=== PATIENT | male | born 1930 | race Caucasian/White ===

== ENCOUNTER → 2016-06-03 | Outpatient (CLI) | payer BC ==
[~2016-06-03] MED LIST: ACET-1256 PO; ALL300 PO; CLB200 PO; LSN/10125 PO; PRLSR20 PO; SILD100T PO
[2016-06-03 11:09] LABS: URINE APPEARANCE CLEAR (CLEAR); URINE BILIRUBIN NEG (NEG); URINE COLOR YELLOW; URINE EPITHELIAL CELL AUTO 0-5 /lpf (0-5); URINE NITRITE NEG (NEG); URINE SPECIFIC GRAVITY 1.017 (1.000-1.030); UROBILINOGEN NEG (NEG)
[2016-06-03 11:10] LABS: HEMATOCRIT 35.6 % (42-52); MEAN CELL VOLUME 98.3 fL (80-100); MEAN CORPUSCULAR HGB CONC 34.6 g/dl (32-36); MEAN PLATELET VOLUME 10.5 fL (7.4-10.4); PLATELET COUNT 212 K/uL (130-400); RED BLOOD COUNT 3.62 M/uL (4.7-6.1); WHITE BLOOD COUNT 8.14 K/uL (4.8-10.8)
[2016-06-03 11:37] LABS: MANUAL MICROSCOPIC REQUIRED? NO; REVIEW REQ? NO
[2016-06-03 11:38] LABS: ALT/SGPT 18 U/L (12-78); BLOOD UREA NITROGEN 29 mg/dl (7-18); BUN/CREATININE RATIO 22.5 (10-20); CALCIUM 8.8 mg/dl (8.5-10.1); CARBON DIOXIDE 24 mmol/L (21-32); CHLORIDE 109 mmol/L (98-107); GLUCOSE 71 mg/dl (70-99); POTASSIUM 3.8 mmol/L (3.5-5.1); SODIUM 143 mmol/L (136-145); URINE PROTIEN/CREAT RATIO 0.1 (0-0.2); URINE TOTAL PROTEIN 13.9 mg/dl (0-11.9)
[2016-06-03 11:41] LABS: ALB/GLOB RATIO 1.1 (0.9-2); ALKALINE PHOSPHATASE 78 U/L (45-117); AST/SGOT 14 U/L (15-37)
== END | disposition home or self-care (01) ==
LOC: C.LAB1850 10:18
PROVIDERS: ATTEND Internal Medicine Nephrology
DX: E55.9 Vitamin D deficiency, unspecified (principal)

== ENCOUNTER → 2016-07-24 | Outpatient (CLI) | payer BC | END | disposition home or self-care (01) | LOC: C.PATHSPEC 10:55 | PROVIDERS: ATTEND Urology | DX: C67.9 Malignant neoplasm of bladder, unspecified (principal) ==

== ENCOUNTER → 2016-12-23 | Outpatient (CLI) | payer BC ==
[2016-12-23 12:50] LABS: HEMATOCRIT 34.2 % (42-52); MEAN CELL VOLUME 99.7 fL (80-100); MEAN CORPUSCULAR HEMOGLOBIN 33.5 pg (25-34); MEAN CORPUSCULAR HGB CONC 33.6 g/dl (32-36); MEAN PLATELET VOLUME 10.7 fL (7.4-10.4); PLATELET COUNT 196 K/uL (130-400); RED BLOOD COUNT 3.43 M/uL (4.7-6.1); WHITE BLOOD COUNT 6.66 K/uL (4.8-10.8)
[2016-12-23 12:55] LABS: URINE APPEARANCE CLEAR (CLEAR); URINE BILIRUBIN NEG (NEG); URINE COLOR YELLOW; URINE EPITHELIAL CELL AUTO 0-5 /lpf (0-5); URINE NITRITE NEG (NEG); URINE SPECIFIC GRAVITY 1.022 (1.000-1.030); UROBILINOGEN NEG (NEG)
[2016-12-23 13:05] LABS: MANUAL MICROSCOPIC REQUIRED? NO; REVIEW REQ? NO
[2016-12-23 13:19] LABS: URINE PROTIEN/CREAT RATIO 0.1 (0-0.2); URINE TOTAL PROTEIN 15.8 mg/dl (0-11.9)
[2016-12-23 13:26] LABS: BLOOD UREA NITROGEN 38 mg/dl (7-18); BUN/CREATININE RATIO 27.4 (10-20); CALCIUM 8.5 mg/dl (8.5-10.1); CARBON DIOXIDE 25 mmol/L (21-32); CHLORIDE 109 mmol/L (98-107); GLUCOSE 100 mg/dl (70-99); PHOSPHORUS 2.5 mg/dl (2.5-4.9); SODIUM 139 mmol/L (136-145)
== END | disposition home or self-care (01) ==
LOC: C.LAB1850 11:59
PROVIDERS: ATTEND Internal Medicine Nephrology
DX: N20.0 Calculus of kidney (principal); I12.9 Hypertensive chronic kidney disease with stage 1 through stage 4 chronic kidney disease, or unspecified chronic kidney disease; N18.3 Chronic kidney disease, stage 3 (moderate); E55.9 Vitamin D deficiency, unspecified

== ENCOUNTER → 2017-01-01 | Outpatient (CLI) | payer BC ==
--- NOTE | 2017-01-01 15:58 | DIAGNOSTIC IMAGING REPORT ---
LEFT ANKLE MIN 3 VIEWS CLINICAL HISTORY: 86 years-old Male presenting with LEFT ANKLE PAIN. TECHNIQUE: Frontal, mortise, and lateral views of the left ankle were obtained. COMPARISON: None. FINDINGS: Ankle mortise intact with diffuse degenerative change.. Heterotopic ossification along the inferior pole of the medial malleolus likely suggests chronic ligamentous injury. No acute fracture or malalignment. Prominent bone spur at the inferior calcaneus. Apparent distention of the ankle joint may suggest effusion. Degenerative changes also noted in the midfoot. Calcification noted in the Achilles tendon likely indicating chronic degeneration or injury. IMPRESSION: No acute fracture. Diffuse degenerative change of the ankle as described above. Possible ankle joint effusion. Electronically signed by: Erik Hopper M.D. 01/01/2017 3:57 PM Dictated Date/Time: 01/01/2017 3:54 PM
== END | disposition home or self-care (01) ==
LOC: C.RDSM 15:00
PROVIDERS: ATTEND Physician Assistant
DX: M25.572 Pain in left ankle and joints of left foot (principal); M19.072 Primary osteoarthritis, left ankle and foot

== ENCOUNTER 2017-03-05 12:06 | Day surgery (SDC) | payer BC ==
[2017-02-26 08:14] VITALS: BMI 26.0
--- NOTE | 2017-02-26 08:39 | PAT Medication Instructions ---
Service Date Feb 26, 2017. Current Home Medication List Acetaminophen (Tylenol), 500 MG PO QID PRN for PRN Allopurinol (Allopurinol), 300 MG PO QAM Atorvastatin (Lipitor), 20 MG PO UD Celecoxib (Celebrex), 200 MG PO QAM Esomeprazole Magnesium (Nexium), 40 MG PO QAM Hctz/Lisinopril (Lisinopril/Hctz 10/12.5 Mg), 1 TAB PO QAM Ocuvite Preservision (Ocuvite Preservision), 1 TAB PO QAM Sildenafil Citrate (Viagra), 100 MG PO PRN Medication Instructions For Your Scheduled Surgery - Hold the following medications the morning of surgery: Hctz/Lisinopril (Lisinopril/Hctz 10/12.5 Mg), 1 TAB PO QAM Ocuvite Preservision (Ocuvite Preservision), 1 TAB PO QAM Sildenafil Citrate (Viagra), 100 MG PO PRN Celecoxib (Celebrex), 200 MG PO QAM (otherwise okay to continue per surgeon) - Take the following medications the morning of surgery with a sip of water OTHERWISE NOTHING TO EAT OR DRINK AFTER MIDNIGHT: Allopurinol (Allopurinol), 300 MG PO QAM Acetaminophen (Tylenol), 500 MG PO QID PRN for PRN (may take if needed up to 4 hours prior to surgery) Esomeprazole Magnesium (Nexium), 40 MG PO QAM Atorvastatin (Lipitor), 20 MG PO UD - Take the following medications as scheduled the night before surgery: Acetaminophen (Tylenol), 500 MG PO QID PRN for PRN If you have any questions please call us at [phone] or [phone] or [phone]
--- NOTE | 2017-02-26 09:20 | DIAGNOSTIC IMAGING REPORT ---
CHEST 2 VIEWS ROUTINE HISTORY: 86 years-old Male PAT preoperative exam without acute chest complaints. COMPARISON: Chest radiograph 10/20/2013 TECHNIQUE: Frontal and lateral views of the chest FINDINGS: Cardiomediastinal and hilar silhouettes are within normal limits. There is atherosclerosis of the aorta. No pneumothorax, pleural effusion, focal airspace consolidation or overt pulmonary edema. Bones of the chest appear grossly intact. Multilevel bridging osteophytosis of the spine. IMPRESSION: No acute cardiopulmonary process. The above report was generated using voice recognition software. It may contain grammatical, syntax or spelling errors. Electronically signed by: Sandeep Beltran M.D. 02/26/2017 9:19 AM Dictated Date/Time: 02/26/2017 9:18 AM
[2017-02-26 09:50] LABS: BASO % 0.2 %; BASO ABS # 0.02 K/uL (0-0.2); COMPLETE YES; EOS % 2.6 %; HEMATOCRIT 32.6 % (42-52); IG% 0.4 %; LYMPH ABS # 1.63 K/uL (1.2-3.4); MEAN CORPUSCULAR HEMOGLOBIN 34.4 pg (25-34); MEAN CORPUSCULAR HGB CONC 34.4 g/dl (32-36); MEAN PLATELET VOLUME 10.4 fL (7.4-10.4); MONO % 7.7 %; NEUT % 69.1 %; PLATELET COUNT 214 K/uL (130-400); RED BLOOD COUNT 3.26 M/uL (4.7-6.1); URINE APPEARANCE CLEAR (CLEAR); URINE BILIRUBIN NEG (NEG); URINE COLOR YELLOW; URINE NITRITE NEG (NEG); URINE SPECIFIC GRAVITY 1.021 (1.000-1.030); UROBILINOGEN NEG (NEG); WHITE BLOOD COUNT 8.17 K/uL (4.8-10.8)
[2017-02-26 09:55] LABS: MANUAL MICROSCOPIC REQUIRED? NO; REVIEW REQ? NO
[2017-02-26 10:16] LABS: CALCIUM 8.8 mg/dl (8.5-10.1); CREATININE 1.31 mg/dl (0.60-1.40); POTASSIUM 4.4 mmol/L (3.5-5.1)
[~2017-03-05] VITALS: Ht 177.8 cm; Wt 84.5 kg
[~2017-03-05 12:06] MED LIST changes: +ATOR-22 PO; +CIPROFLOXACIN / D5W 400 MG IV SCH; +LACTATED RINGER'S 1000ML 1,000 ML IV SCH; +MULT-190 PO; +NXM/40 PO; -PRLSR20 PO
[2017-03-05 12:59] VITALS: BP 146/78; PULSE 62; TEMP 36.4; O2SAT 99; Ht 177.8 cm; Wt 84.5 kg
[2017-03-05] MEDS ORDERED: PROPOFOL IV EMULSION 10 MG/ML 20 ML VIAL IV ONE (13:55)
[2017-03-05] MEDS ORDERED: DEXAMETHASONE SOD INJ 4 MG/ML VIAL ONE (13:55)
[2017-03-05] MEDS ORDERED: LIDOCAINE HCL 2% 2 ML VIAL (20MG/ML) ONE (13:55)
[2017-03-05] MEDS ORDERED: ONDANSETRON INJ 2 MG/ML 2 ML VIAL ONE (13:55)
[2017-03-05] MEDS ORDERED: FENTANYL CITRATE INJ 50 MCG/1 ML 2 ML VIAL ONE ×2 (13:56→14:03)
[2017-03-05] MEDS ORDERED: FLUMAZENIL 0.1 MG/1 ML 10 ML VIAL IV PRN (14:00)
[2017-03-05] MEDS ORDERED: ATROPINE SULFATE 0.1 MG/ML 5ML SYR IV PRN (14:00)
[2017-03-05] MEDS ORDERED: EpHEDrine SULFATE INJ 50 MG/ML AMP IV PRN (14:00)
[2017-03-05] MEDS ORDERED: FENTANYL CITRATE INJ 50 MCG/1 ML 2 ML VIAL IV PRN (14:00)
[2017-03-05] MEDS ORDERED: PROMETHAZINE HCL INJ 12.5 MG in SODIUM CHLORIDE 0.9% 50ML 50 ML IV PRN (14:00)
[2017-03-05] MEDS ORDERED: ONDANSETRON INJ 2 MG/ML 2 ML VIAL IV PRN (14:00)
[2017-03-05] MEDS ORDERED: NALOXONE HCL 0.4 MG/1 ML VIAL/CARP IV PRN (14:00)
[2017-03-05] MEDS ORDERED: LABETALOL HCL IV 5 MG/ML 20ML IV PRN (14:00)
--- NOTE | 2017-03-05 14:27 | History & Physical Bridge Note ---
H&P Re-Evaluation Bridge Note: I have examined the patient, reviewed the History & Physical and in the interval since the performance of the History & Physical I have noted the following changes of clinical significance: No changes noted
[2017-03-05] MEDS ORDERED: OXYC-57 PO (15:22)
--- NOTE | 2017-03-05 15:23 | Discharge Instructions ---
Discharge Instructions Date of Service Mar 05, 2017. Visit Reason for Visit: Bladder Tumor Discharge Discharge Diagnosis / Problem: bladder tumor Discharge Goals Goal(s): Therapeutic intervention Activity Recommendations Activity Limitations: resume your previous activity Exercise/Sports Limitations: rest today May Resume Sexual Activity: after one week Shower/Bathe: no limitations Driving or Machine Use: resume 1 day after discharge Anesthesia . Post Anesthesia Instructions: If you have had General Anesthesia or IV Sedation: * Do not drive today. * Resume driving when surgeon permits. * Do not make important decisions or sign legal documents today. * Call surgeon for: 1. Temperature elevations greater than 101 degrees F. 2. Uncontrollable pain. 3. Excessive bleeding. 4. Persistent nausea and vomiting. 5. Medication intolerance (nausea, vomiting or rash). * For nausea and vomiting use only clear liquids such as: tea, soda, bouillon until nausea subsides, then gradually increase diet as tolerated. * If you have any concerns or questions, call your surgeon's office. If physician is unavailable and it is an emergency, call 911 or go to the nearest emergency room. . Diet Recommendations Recommended Home Diet: resume previous diet Procedures Procedures Performed: CYSTOSCOPY, TRANSURETHRAL RESECTION OF BLADDER TUMOR Pending Studies Studies pending at discharge: no Medical Emergencies . Who to Call and When: Medical Emergencies: If at any time you feel your situation is an emergency, please call 911 immediately. . Non-Emergent Contact Non-Emergency issues call your: Urologist Call Non-Emergent contact if: temperature is above 101.5, your pain is not controlled . . "Provider Documentation" section prepared by Viraj Vincent. . [place] Drug Monitoring Program Search Results: patient reviewed within database
[2017-03-05] MEDS ORDERED: OXYCODONE/ACETAMINOPHEN 5-325 TAB PO PRN (15:30)
--- NOTE | 2017-03-05 15:36 | [facility] Operative Report ---
Operative Report Operative Date Mar 05, 2017. Pre-Operative Diagnosis BLADDER CANCER Post-Operative Diagnosis SAME Procedure(s) Performed CYSTOSCOPY, TRANSURETHRAL RESECTION OF BLADDER TUMOR Surgeon DR. FREITAS Estimated Blood Loss 0ML Findings Cystoscopy showed a normal anterior urethra. Prostatic fossa was moderately obstructing with kissing lateral lobes and elevated median lobe. Bladder showed 1-2+ trabeculation with diverticuli there was a tumor at about 7:00 the bladder neck Specimens A. BLADDER TUMOR (PERMANENT) Drains none Anesthesia Gen. Complication(s) None Disposition Recovery Room / PACU Indications She is an 86-year-old white male who on routine surveillance cystoscopy for bladder cancer sent have a tumor at the bladder neck it was in a position that I could not get a scope in the office to bend to to fulgurate he is being brought in now for resection. Description of Procedure Patient was brought to the operating suite. After the induction of an adequate general anesthetic and appropriate timeout he was placed in the dorsal lithotomy position. Lower abdomen and genitalia were then prepped with Betadine and draped in sterile fashion. Using a 22 Kinyarwanda cystoscope routine cystoscopic exam was performed with the above-noted findings with the 30 and 70 lenses. Next using a 24 since resection scope and bipolar loop the tumor at the bladder neck was resected. The area was then fulgurated for hemostasis. The tumor was then extracted from the bladder and handed off the table as a specimen. The area was then reinspected there was no bleeding. Patient's bladder was drained cystoscope and sheath removed all needle sponges counts are correct at the end of the case. Patient tolerated the procedure well and was taken recovery in stable condition I attest to the content of the Intraoperative Record and any orders documented therein. Any exceptions are noted below.
--- NOTE | 2017-03-05 16:03 | Anesthesiology Progress Note ---
Anesthesia Post Op Note Date & Time Mar 05, 2017 at 16:02 Vital Signs Pain Intensity: 1 Vital Signs Past 12 Hours Date Time Temp Pulse Resp B/P (MAP) Pulse Ox O2 Delivery O2 Flow Rate FiO2 03/05/17 15:58 36.5 03/05/17 15:56 114/71 03/05/17 15:55 60 12 95 03/05/17 15:55 60 12 03/05/17 15:51 115/70 03/05/17 15:50 59 13 03/05/17 15:50 58 13 111/70 94 03/05/17 15:45 58 12 03/05/17 15:45 58 12 94 03/05/17 15:41 112/65 03/05/17 15:40 59 13 03/05/17 15:40 58 13 98 03/05/17 15:36 109/66 03/05/17 15:35 58 12 03/05/17 15:35 57 12 98 03/05/17 15:33 105/67 03/05/17 15:30 60 15 03/05/17 15:30 60 15 98 03/05/17 15:27 109/65 03/05/17 15:25 60 13 99 03/05/17 15:25 60 13 03/05/17 15:23 105/64 03/05/17 15:20 36.4 78 14 105/64 100 Oxymask 4 03/05/17 12:59 36.4 62 18 146/78 (100) 99 Room Air Notes Mental Status: alert / awake / arousable, participated in evaluation Pt Amnestic to Procedure: Yes Nausea / Vomiting: adequately controlled Pain: adequately controlled Airway Patency, RR, SpO2: stable & adequate BP & HR: stable & adequate Hydration State: stable & adequate Anesthetic Complications: no major complications apparent
[2017-03-05 16:05] VITALS: BP 120/69; PULSE 60; TEMP 36.6; O2SAT 96
[2017-03-05 16:35] VITALS: BP 121/69; PULSE 60; TEMP 36.6; O2SAT 97
[2017-03-05 17:05] VITALS: BP 122/58; PULSE 75; TEMP 36.6; O2SAT 96
== END 2017-03-05 17:30 | disposition home or self-care (01) ==
LOC: C.ACU 12:06
PROVIDERS: ATTEND Urology
DX: C67.9 Malignant neoplasm of bladder, unspecified (principal); I12.9 Hypertensive chronic kidney disease with stage 1 through stage 4 chronic kidney disease, or unspecified chronic kidney disease; N18.3 Chronic kidney disease, stage 3 (moderate); E78.5 Hyperlipidemia, unspecified; Z68.26 Body mass index [BMI] 26.0-26.9, adult; Z96.642 Presence of left artificial hip joint; Z79.899 Other long term (current) drug therapy; Z98.890 Other specified postprocedural states; Z87.891 Personal history of nicotine dependence; Z80.3 Family history of malignant neoplasm of breast

== ENCOUNTER → 2017-07-31 | Outpatient (CLI) | payer BC ==
[~2017-07-31] MED LIST changes: -CIPROFLOXACIN / D5W 400 MG IV SCH; -LACTATED RINGER'S 1000ML 1,000 ML IV SCH; +OXYC-57 PO
[2017-07-31 15:39] LABS: HEMATOCRIT 35.1 % (42-52); HEMOGLOBIN 11.7 g/dL (14.0-18.0); MEAN CELL VOLUME 99.4 fL (80-100); MEAN CORPUSCULAR HEMOGLOBIN 33.1 pg (25-34); MEAN CORPUSCULAR HGB CONC 33.3 g/dl (32-36); MEAN PLATELET VOLUME 10.8 fL (7.4-10.4); PLATELET COUNT 240 K/uL (130-400); RED CELL DISTRIBUTION WIDTH CV 13.9 % (11.5-14.5); RED CELL DISTRIBUTION WIDTH SD 49.8 fL (36.4-46.3); WHITE BLOOD COUNT 8.05 K/uL (4.8-10.8)
[2017-07-31 16:23] LABS: ALBUMIN 3.5 gm/dl (3.4-5.0); AST/SGOT 23 U/L (15-37); BLOOD UREA NITROGEN 37 mg/dl (7-18); CALCIUM 8.7 mg/dl (8.5-10.1); CARBON DIOXIDE 25 mmol/L (21-32); CREATININE 1.56 mg/dl (0.60-1.40); GLUCOSE 102 mg/dl (70-99); SODIUM 142 mmol/L (136-145); URIC ACID 4.3 mg/dl (2.6-7.2)
[2017-07-31 16:26] LABS: ALKALINE PHOSPHATASE 87 U/L (45-117); ALT/SGPT 22 U/L (12-78); TOTAL PROTEIN 6.7 gm/dl (6.4-8.2)
== END | disposition home or self-care (01) ==
LOC: C.LAB1850 14:13
PROVIDERS: ATTEND Internal Medicine Nephrology
DX: N20.0 Calculus of kidney (principal); I12.9 Hypertensive chronic kidney disease with stage 1 through stage 4 chronic kidney disease, or unspecified chronic kidney disease; N18.3 Chronic kidney disease, stage 3 (moderate); E55.9 Vitamin D deficiency, unspecified

== ENCOUNTER → 2017-09-10 | Outpatient (CLI) | payer BC ==
[~2017-09-10] MED LIST changes: -OXYC-57 PO
== END | disposition home or self-care (01) ==
LOC: C.PATHSPEC 17:06
PROVIDERS: ATTEND Urology
DX: C67.9 Malignant neoplasm of bladder, unspecified (principal)

== ENCOUNTER 2020-04-02 11:17 | Observation (INO) ==
[2020-04-02 11:41] LABS: Basophils # (auto) 0.02 K/uL (0-0.2); Basophils % (auto) 0.3 %; Eosinophils # (auto) 0.21 K/uL (0-0.5); Eosinophils % (auto) 3.1 %; Hematocrit (blood only) 36.9 % (42-52); Hemoglobin 12.3 g/dL (14.0-18.0); Immature Granulocytes # (auto) 0.02 K/uL (0.00-0.02); Immature Granulocytes % (auto) 0.3 %; Lymphocytes # (auto) 1.35 K/uL (1.2-3.4); Lymphocytes % (auto) 19.9 %; Mean Corpuscular Hemoglobin 33.7 pg (25-34); Mean Corpuscular Hgb Conc 33.3 g/dL (32-36); Mean Corpuscular Volume 101.1 fL (80-100); Mean Platelet Volume 10.4 fL (7.4-10.4); Monocytes # (auto) 0.48 K/uL (0.11-0.59); Monocytes % (auto) 7.1 %; Neutrophils # (auto) 4.72 K/uL (1.4-6.5); Neutrophils % (auto) 69.3 %; Platelet Count 222 K/uL (130-400); RDW Coefficient of Variation 14.1 % (11.5-14.5); RDW Standard Deviation 51.9 fL (36.4-46.3); Red Blood Count 3.65 M/uL (4.7-6.1)
[2020-04-02] MEDS ORDERED: STAT IV Infusion **Titration per Protocol STA (11:49)
[2020-04-02] MEDS ORDERED: dilTIAZem HCL 125 MG in DEXTROSE 5% 100 ML IV STA (11:49)
[2020-04-02 11:51] LABS: Partial Thromboplastin Time 28.1 Seconds (21.0-31.0); Prothrombin Time 10.9 Seconds (9.0-12.0)
[2020-04-02 11:57] LABS: Albumin Level 3.8 gm/dl (3.4-5.0); BUN Creatinine Ratio 21.6 (10-20); Calcium 8.8 mg/dl (8.5-10.1); Creatinine Clr Calc Pharmacy 40.7 ml/min; Est GFR (African American) 55.8; Est GFR (Non-African American) 48.2; Potassium 4.2 mmol/L (3.5-5.1)
--- NOTE | 2020-04-02 11:58 | Emergency Department Note ---
History of Present Illness General Chief complaint: Cardiac Assessment Time Seen by Provider: 04/02/20 11:41 Source: patient History of Present Illness Provider complaint: Abnormal heart rhythm Onset (ago): hour(s) Location: chest Pain Consistency: + constant Maximum Pain Intensity: 0 Quality: + other (Rapid heart rate) Exacerbated By: + none Associated symptoms: no chest pain, no cough, no diaphoresis, no fever/chills, no headaches, no malaise, no nausea/vomiting, no shortness of breath and no weakness This is an 89-year-old male who went for a routine checkup at his doctor's office and was found to be in atrial fibrillation with RVR. The patient has had no prior history of cardiac disease or dysrhythmia. He denies any symptoms and states that he feels no palpitations, lightheadedness, weakness, chest discomfort or pain, shortness of breath, cough, vomiting, diarrhea or urinary symptoms. He does state that he has irritable bowel syndrome and has had some increased upset in the stomach but otherwise feels well. He denies any known exposure to COVID-19. He denies any black or bloody stools or history of internal bleeding or ICH. He has had no prior history of stroke or diabetes. He is treated for hypertension. Home Medications Medication Instructions Recorded Confirmed Type allopurinol 300 mg tablet 300 mg PO QAM tab 01/21/19 04/02/20 History esomeprazole magnesium 40 mg 40 mg PO QAM cap 01/21/19 04/02/20 History capsule,delayed release lisinopril 10 1 tab PO QAM #90 tab 01/21/19 04/02/20 History mg-hydrochlorothiazide 12.5 mg tablet sildenafil 100 mg tablet 100 mg PO .COMPLEX PRN tab 01/21/19 04/02/20 History vit C 250 mg-E 200 unit-zinc 40 1 tab PO QAM cap 09/20/19 04/02/20 History mg-copper 1 [id number] capsule atorvastatin 20 mg tablet 20 mg PO .COMPLEX #45 tab 01/26/20 04/02/20 Rx celecoxib 200 mg PO QAM 04/02/20 04/02/20 History Allergies Allergy/AdvReac Type Severity Reaction Status Date / Time No Known Allergies Allergy Unknown Verified 04/02/20 12:27 Past Med/Surg History Medical History (Updated 04/02/20 @ 14:08 by Deo Osman MD) Abnormal cystoscopy Actinic keratosis Bilateral nephrolithiasis (2006) Bladder cancer (2017) Chronic kidney disease, stage 3 GI bleed Gout Hearing loss Hematuria (2019) History of basal cell carcinoma (2017) Hypercholesteremia Male erectile disorder of organic origin Vitamin D deficiency Surgical History H/O pyloroplasty H/O shoulder surgery S/P bladder tumor excision with fulguration (2017) S/P knee surgery Status post ORIF of fracture of ankle Family History Grandfather Cancer Social History Smoking Status: Former smoker Age Quit Using Tobacco: 32; Hx Alcohol Use: Yes Hx Substance Use: No marital status: Current Living Situation: Spouse current occupational status: retired Feels Safe at Home: Yes Review of Systems See HPI for pertinent positives & negatives. and A total of 10 systems reviewed and were otherwise negative Physical Exam Vital Signs Vital Signs - 24 hr 04/02/20 11:30 04/02/20 11:34 04/02/20 12:00 Temperature 36.5 C Temperature Source Oral Pulse Rate 134 H 135 H 116 H Pulse Rhythm Irregular Respiratory Rate 21 18 18 Respiratory Effort / Characteristics Non-Labored Spontaneous Respiratory Depth Normal Respiratory Pattern Regular Blood Pressure 119/94 132/103 H 112/85 Blood Pressure Mean 106 112 92 Pulse Oximetry 98 97 97 Oxygen Delivery Method Room Air Sepsis Recent Fever Within 48 Hours No Sepsis New/Unexplained Change in Mental Status No Sepsis Action Taken by Nursing No Action Required 04/02/20 12:12 Temperature Temperature Source Pulse Rate 105 H Pulse Rhythm Respiratory Rate 24 Respiratory Effort / Characteristics Respiratory Depth Respiratory Pattern Blood Pressure 130/100 Blood Pressure Mean 104 Pulse Oximetry 96 Oxygen Delivery Method Sepsis Recent Fever Within 48 Hours Sepsis New/Unexplained Change in Mental Status Sepsis Action Taken by Nursing Constitutional: Vital signs reviewed. Eyes: Pupils are equal round reactive to light. Conjunctiva are noninjected. ENT: Pharynx is clear without erythema or exudate. Mucous membranes are moist. Neck supple without meningeal signs. Respiratory: Clear to auscultation bilaterally. Breath sounds are equal bilaterally. Cardiovascular: Tachycardic. Irregularly irregular rhythm. Heart rate 131. GI: Soft, nondistended and nontender. Bowel sounds are present. Musculoskeletal: No peripheral edema. No lower extremity tenderness. Integumentary: No cyanosis. or jaundice. Neurological: The patient is awake and alert. Hard of hearing. Psychiatric: Normal affect. Not anxious appearing. Course Administered Medications Diltiazem HCl 125 mg/ Dextrose 125 mls @ 10 mls/hr IV .[id number] STA; Protocol Stop: 04/03/20 00:18 Last Titration: 04/02/20 13:09 Dose: 10 mg/hr, 10 mls/hr Documented by: [id number] Cosigned by: [id number] Admin: 04/02/20 12:40 Dose: 5 mg/hr, 5 mls/hr Documented by: [id number] Cosigned by: [id number] Heparin Sodium/Dextrose (Heparin Sodium/Dextrose) 25,000 units in 500 mls @ 18 mls/hr IV .Q24H MEJIA; Protocol Stop: 05/02/20 12:14 Last Admin: 04/02/20 12:40 Dose: 900 units/hr, 18 mls/hr Documented by: [id number] Cosigned by: [id number] Discontinued Medications Heparin Sodium (Porcine) (Heparin Sod (Porcine) 1000 Unit/Ml 10 Ml Vial) Confirm Administered Dose 10,000 units .ROUTE .STK-MED ONE Stop: 04/02/20 12:37 Last Admin: 04/02/20 12:39 Dose: 4,000 units Documented by: [id number] Cosigned by: [id number] Heparin Sodium/Dextrose (Heparin Iv Low Dose With Bolus) 1 ea IV NOW STA; Prot ocol Stop: 04/02/20 12:10 Last Admin: 04/02/20 12:40 Dose: Not Given Documented by: [id number] Miscellaneous (Stat Iv Infusion Titration Per Protocol) 1 ea N/A NOW STA Stop: 04/02/20 11:50 Last Admin: 04/02/20 12:40 Dose: Not Given Documented by: [id number] Critical Care Time Critical Care Time: Yes Total Critical Care Time: 40 I have personally spent approximately 40 minutes of critical care time in the direct management of this patient. This includes bedside care, interpretation of diagnostic studies, and testing, discussion with consultants, patient, and family members, and other required patient management activities. These minutes are in excess of all separately billable procedures. Medical Decision Making Differential Diagnosis SVT, atrial fibrillation, acute coronary syndrome, metabolic derangement, electrolyte abnormality Medical Records Attestation: I reviewed the patient's medical records. I did perform a limited focused review of portions of the patient's old chart on the electronic medical record. The patient has had no recent pertinent visits to this hospital. Home Medications Current Medication List: was personally reviewed by me Laboratory Data Attestation: I reviewed the patient's lab results. Result diagrams: 04/02/20 11:30 04/02/20 11:30 Lab Results 04/02/20 04/02/20 04/02/20 Range/Units 11:30 11:30 11:30 WBC 6.80 (4.8-10.8) K/uL RBC 3.65 L (4.7-6.1) M/uL Hgb 12.3 L (14.0-18.0) g/dL Hct 36.9 L (42-52) % MCV 101.1 H (80-100) fL MCH 33.7 (25-34) pg MCHC 33.3 (32-36) g/dL RDW Std Deviation 51.9 H (36.4-46.3) fL RDW Coeff of Osito 14.1 (11.5-14.5) % Plt Count 222 (130-400) K/uL MPV 10.4 (7.4-10.4) fL Immature Gran % (Auto) 0.3 % Neut % (Auto) 69.3 % Lymph % (Auto) 19.9 % Leslie % (Auto) 7.1 % Eos % (Auto) 3.1 % Baso % (Auto) 0.3 % Neut # (Auto) 4.72 (1.4-6.5) K/uL Lymph # (Auto) 1.35 (1.2-3.4) K/uL Leslie # (Auto) 0.48 (0.11-0.59) K/uL Eos # (Auto) 0.21 (0-0.5) K/uL Baso # (Auto) 0.02 (0-0.2) K/uL Immature Gran # (Auto) 0.02 (0.00-0.02) K/uL PT 10.9 (9.0-12.0) Seconds INR 1.0 (0.9-1.1) APTT 28.1 (21.0-31.0) Seconds PTT Ratio 1.0 Sodium 139 (136-145) mmol/L Potassium 4.2 (3.5-5.1) mmol/L Chloride 108 H (98-107) mmol/L Carbon Dioxide 27 (21-32) mmol/L Anion Gap 4.0 (3-11) BUN 28 H (7-18) mg/dl Creatinine 1.32 (0.6-1.4) mg/dl Est Cr Clr Drug Dosing 40.7 ml/min Est GFR ( Amer) 55.8 Est GFR (Non-Af Amer) 48.2 BUN/Creatinine Ratio 21.6 H (10-20) Glucose 112 H (70-99) mg/dl Calcium 8.8 (8.5-10.1) mg/dl Magnesium (1.8-2.4) mg/dl Total Bilirubin 0.7 (0.2-1) mg/dl AST 14 L (15-37) U/L ALT 22 (12-78) U/L Alkaline Phosphatase 81 (45-117) U/L Troponin I 0.115 H* (0-0.045) ng/ml Total Protein 7.1 (6.4-8.2) gm/dl Albumin 3.8 (3.4-5.0) gm/dl Globulin 3.3 (2.5-4.0) gm/dl Albumin/Globulin Ratio 1.2 (0.9-2) TSH (0.300-4.500) uIu/ml SARS-CoV-2 Ag (Rapid) (Negative) 04/02/20 04/02/20 04/02/20 Range/Units 11:30 11:30 12:30 WBC (4.8-10.8) K/uL RBC (4.7-6.1) M/uL Hgb (14.0-18.0) g/dL Hct (42-52) % MCV (80-100) fL MCH (25-34) pg MCHC (32-36) g/dL RDW Std Deviation (36.4-46.3) fL RDW Coeff of Osito (11.5-14.5) % Plt Count (130-400) K/uL MPV (7.4-10.4) fL Immature Gran % (Auto) % Neut % (Auto) % Lymph % (Auto) % Leslie % (Auto) % Eos % (Auto) % Baso % (Auto) % Neut # (Auto) (1.4-6.5) K/uL Lymph # (Auto) (1.2-3.4) K/uL Leslie # (Auto) (0.11-0.59) K/uL Eos # (Auto) (0-0.5) K/uL Baso # (Auto) (0-0.2) K/uL Immature Gran # (Auto) (0.00-0.02) K/uL PT (9.0-12.0) Seconds INR (0.9-1.1) APTT (21.0-31.0) Seconds PTT Ratio Sodium (136-145) mmol/L Potassium (3.5-5.1) mmol/L Chloride (98-107) mmol/L Carbon Dioxide (21-32) mmol/L Anion Gap (3-11) BUN (7-18) mg/dl Creatinine (0.6-1.4) mg/dl Est Cr Clr Drug Dosing ml/min Est GFR ( Amer) Est GFR (Non-Af Amer) BUN/Creatinine Ratio (10-20) Glucose (70-99) mg/dl Calcium (8.5-10.1) mg/dl Magnesium 1.8 (1.8-2.4) mg/dl Total Bilirubin (0.2-1) mg/dl AST (15-37) U/L ALT (12-78) U/L Alkaline Phosphatase (45-117) U/L Troponin I (0-0.045) ng/ml Total Protein (6.4-8.2) gm/dl Albumin (3.4-5.0) gm/dl Globulin (2.5-4.0) gm/dl Albumin/Globulin Ratio (0.9-2) TSH 0.987 (0.300-4.500) uIu/ml SARS-CoV-2 Ag (Rapid) Negative (Negative) Imaging Data Radiologist's Impression: XR chest 1V portable CLINICAL HISTORY: Atypical chest pain COMPARISON STUDY: 08/16/2010 FINDINGS: The heart is normal in size. There is no failure. There is no focal pulmonary consolidation. There is mild left hilar prominence, likely vascula r.[Arthritic changes are present within the shoulders IMPRESSION: No active disease in the chest. ACT 112: Negative or not required by law. Electronically signed by: Jean Lopes M.D. 04/02/2020 12:02 PM ECG Data Attestation: I personally reviewed and interpreted this ECG as follows: Indication: + tachycardia Rate (beats per minute): 128 Rhythm: + atrial fibrillation ECG Intervals/blocks: + Left anterior fascicular block and + Incomplete right bundle branch block ECG ST segments: no ST elevation ECG Findings: no PVCs MDM Narrative I did evaluate the patient as noted above. The patient was sent over for new onset A. fib with RVR. He is asymptomatic so it is unclear how long he has had atrial fibrillation. IV access was established. I did place an order for continuous cardiac monitoring. The monitor showed atrial fibrillation with a heart rate of 130. I did order and personally review the patient's 12-lead EKG as described above. He has A. fib with RVR. I did start the patient on a Cardizem continuous IV drip. I did order and personally reviewed the images of the patient's chest x-ray as described above. Chest x-ray is unremarkable. I did order and review the patient's blood work as noted in the electronic medical record. CBC demonstrates a mild anemia with a hemoglobin of 12. Electrolytes are unremarkable. His troponin is slightly elevated at 0.1. He is not having any chest discomfort or shortness of breath. He has a Pan vas score of 3. Given an elevated troponin and new onset atrial fibrillation I did feel he needed to be anticoagulated at this time. I did discuss risks and benefits with him. I did start him on a heparin drip with an IV bolus. I did reassess him several times. His heart rate would vacillate from 100-115 and occasionally go up to 130 again. He remains asymptomatic. I did discuss the case with the hospitalist and case resource manager. Impression & Plan Atrial fibrillation with rapid ventricular response, Anemia, Elevated troponin, New onset a-fib Discharge Plan Visit Data Chief Complaint: Cardiac Assessment ED Provider: Deo Osman Discharge Problem: Atrial fibrillation with rapid ventricular response, Anemia, Elevated troponin, New onset a-fib Patient Disposition: Admitted As Inpatient Discharge Instructions Interventions: ED Discharge Assessment Last Done: 04/02/20 15:14 Discharge Problem: Anemia Qualifiers: Anemia type: unspecified type Qualified Code(s): D64.9 - Anemia, unspecified
[2020-04-02 12:03] LABS: Albumin Globulin Ratio 1.2 (0.9-2); Bilirubin,Total 0.7 mg/dl (0.2-1); Globulin 3.3 gm/dl (2.5-4.0); Total Protein 7.1 gm/dl (6.4-8.2); Troponin I 0.115 ng/ml (0-0.045)
--- NOTE | 2020-04-02 12:03 | XRay Report ---
XR chest 1V portable CLINICAL HISTORY: Atypical chest pain COMPARISON STUDY: 08/16/2010 FINDINGS: The heart is normal in size. There is no failure. There is no focal pulmonary consolidation . There is mild left hilar prominence, likely vascular.[Arthritic changes are present within the shou lders IMPRESSION: No active disease in the chest. ACT 112: Negative or not required by law. Electronically signed by: Jean Lopes M.D. 04/02/2020 12:02 PM
[2020-04-02] MEDS ORDERED: Heparin IV Low Dose WITH Bolus IV STA (12:09)
[2020-04-02] MEDS ORDERED: HEPARIN SODIUM/DEXTROSE 25,000 UNITS/500 ML BAG IV SCH (12:15)
[2020-04-02] MEDS ORDERED: HEPARIN SOD (PORCINE) 1000 UNIT/ML 10 ML VIAL ONE (12:36)
--- NOTE | 2020-04-02 12:46 | History & Physical Report ---
Date of Service April 02, 2020 Assessment & Plan (1) Atrial fibrillation with RVR: Asymptomatic Flutter/Fib rhythm on telemetry in ER Recommend stopping alcohol consumption TSH pending TTE Metoprolol 25mg PO Q6H with hold parameters, wean off diltiazem IV drip as able. Anticoagulation with IV heparin pending repeat troponin Consult cardiology given elevated troponin (2) Elevated troponin: Suspected demand-ischemia Serially trend. (3) Anemia: Currently being worked up by PCP. No acute workup required. (4) Chronic kidney disease, stage 3: At baseline. Monitor with AM labs. (5) Hypertension: Hold lisinopril-HCTZ while up titrating rate controlling medication as above. Admission and Anticipated Discharge Date Admission Date: 04/02/2020 History of Present Illness Primary Care Provider: Moustapha Joshi MD Alonso Rhodes is an 89 year old male who presents to the ER on advice of his PCP due to atrial fibrillation with RVR noted on routine check up. He is asymptomatic with this and denies any chest pain, shortness of breath, lightheadedness, although possibly has some fatigue which may be due to this but has been ongoing for weeks. He denies any prior heart attacks or strokes. He works out in the garden frequently and goes for walks without any chest pain or shortness of breath. He drinks approximately 5oz of gin or whisky daily. Drinks 8-12oz filter coffe daily. No other caffeine intake. In the ER he was noted to have an irregularly irregular rhythm with EKG with no discernable p waves consistent with a. fib. He was started on a heparin and diltiazem IV drip and referred to medicine for admission. Allergies Allergy/AdvReac Type Severity Reaction Status Date / Time No Known Allergies Allergy Unknown Verified 04/02/20 12:27 Home Medications Medication Instructions Recorded Confirmed Type allopurinol 300 mg tablet 300 mg PO QAM tab 01/21/19 04/02/20 History esomeprazole magnesium 40 mg 40 mg PO QAM cap 01/21/19 04/02/20 History capsule,delayed release lisinopril 10 1 tab PO QAM #90 tab 01/21/19 04/02/20 History mg-hydrochlorothiazide 12.5 mg tablet sildenafil 100 mg tablet 100 mg PO .COMPLEX PRN tab 01/21/19 04/02/20 History vit C 250 mg-E 200 unit-zinc 40 1 tab PO QAM cap 09/20/19 04/02/20 History mg-copper 1 qa-oqzjgh-xbyliq capsule atorvastatin 20 mg tablet 20 mg PO .COMPLEX #45 tab 01/26/20 04/02/20 Rx celecoxib 200 mg PO QAM 04/02/20 04/02/20 History Past Med/Surg History Medical History Abnormal cystoscopy Actinic keratosis Bilateral nephrolithiasis (2005) Bladder cancer (2017) Chronic kidney disease, stage 3 GI bleed Gout Hearing loss Hematuria (2018) History of basal cell carcinoma (2016) Hypercholesteremia Male erectile disorder of organic origin Vitamin D deficiency Surgical History H/O pyloroplasty H/O shoulder surgery S/P bladder tumor excision with fulguration (2016) S/P knee surgery Status post ORIF of fracture of ankle Family History Grandfather Cancer Social History Smoking Status: Never smoker Age Quit Using Tobacco: 32; Hx Alcohol Use: Yes Alcohol type: hard liquor Hx Substance Use: No Preferred Language: Persian Communication Ability: Effective Special Officer Automat Required: No Beliefs That Will Affect Care: None marital status: Current Living Situation: Spouse Current Living Situation Comment: lives w/ current occupational status: retired Other Information That Helps Us Care for You: No Feels Safe at Home: Yes Safety Concerns: Feels Safe At This Time Assistive Devices: None Review of Systems Review of Systems: All systems reviewed & are unremarkable except as noted in HPI & below Physical Exam Constitutional: well developed and well nourished; no acute distress Eyes: + anicteric sclerae; normal pupil size ENMT: external ear and nose normal, oropharynx normal Neck: trachea midline, no thyromegaly Respiratory: normal respiratory effort, lungs clear to auscultation Cardiovascular: Rate/Rhythm: + tachycardic and + irregularly irregular Heart Sounds: no murmur Vessels: no JVD Extremities: normal capillary refill; no calf tenderness and no pedal edema Gastrointestinal (Abdomen): normal bowel sounds, soft, nontender, no hepatosplenomegaly Musculoskeletal: no cyanosis or clubbing, extremities motor strength 5/5 Skin: no rashes, warm and dry Neurologic: moves all extremities and awake; no focal motor deficits and not confused Psychiatric: A+Ox3, euthymic affect Results & Data Results & Data ([facility]) Vital Signs (Past 12 Hours) Vital Signs Temp Pulse Resp BP Pulse Ox 04/02/20 12:12 105 H 24 130/100 96 04/02/20 12:00 116 H 18 112/85 97 04/02/20 11:34 36.5 C 135 H 18 132/103 H 97 04/02/20 11:30 134 H 21 119/94 98 Medications Administered ER medications given: Heparin IV low-dose with bolus Diltiazem IV drip 5 mg/hr, no bolus given ECG Indication: tachycardia Rate (beats per minute): 128 Rhythm: atrial fibrillation Findings: + LAFB and + RBBB (incomplete) Comparison ECG Date: from (February 27, 2020) Change: the following changes noted (Atrial fibrillation is new) Code Status & VTE Plan Code Status Full VTE Prophylaxis Plan VTE Prophylaxis will be ordered: Yes PG Care Time/CCT Total # of Minutes Spent Total Time Spent with Patient: Total time spent is greater than 50% in coordination of care (as documented) at patient's floor/unit and/or counseling patient: Coding Level of Care Code 48178 Initial Inpt Care Lvl 2 Diagnoses Atrial fibrillation with RVR I48.91 Elevated troponin R77.8 Anemia D64.9 Chronic kidney disease, stage 3 N18.3 Hypertension I10
[2020-04-02] MEDS ORDERED: ONDANSETRON INJ 2 MG/ML 2 ML VIAL IV PRN (15:39)
[2020-04-02] MEDS ORDERED: ALUMINUM/MAGNESIUM SUSP 30 ML UDC PO PRN (15:39)
[2020-04-02] MEDS ORDERED: POLYETHYLENE (MIRALAX) 17 GM PACK PO PRN (15:39)
[2020-04-02] MEDS ORDERED: ACETAMINOPHEN 325 MG TAB PO PRN (15:39)
[2020-04-02] MEDS: METOPROLOL TARTRATE 25 MG TAB PO SCH ×2 (16:59→21:26)
[2020-04-02 20:01] LABS: Partial Thromboplastin Ratio > 5.0
[2020-04-02 20:26] LABS: Partial Thromboplastin Time > 139.0 Seconds (21.0-31.0)
[2020-04-02 21:15] LABS: Partial Thromboplastin Ratio 1.8
[2020-04-02 21:24] LABS: Partial Thromboplastin Time 49.9 Seconds (21.0-31.0)
[2020-04-03 05:19] LABS: Basophils # (auto) 0.02 K/uL (0-0.2); Basophils % (auto) 0.3 %; Eosinophils # (auto) 0.25 K/uL (0-0.5); Eosinophils % (auto) 3.5 %; Hematocrit (blood only) 33.4 % (42-52); Hemoglobin 11.5 g/dL (14.0-18.0); Immature Granulocytes # (auto) 0.02 K/uL (0.00-0.02); Immature Granulocytes % (auto) 0.3 %; Lymphocytes # (auto) 2.06 K/uL (1.2-3.4); Lymphocytes % (auto) 29.1 %; Mean Corpuscular Hemoglobin 34.6 pg (25-34); Mean Corpuscular Hgb Conc 34.4 g/dL (32-36); Mean Corpuscular Volume 100.6 fL (80-100); Mean Platelet Volume 10.4 fL (7.4-10.4); Monocytes # (auto) 0.44 K/uL (0.11-0.59); Monocytes % (auto) 6.2 %; Neutrophils % (auto) 60.6 %; Platelet Count 193 K/uL (130-400); RDW Coefficient of Variation 13.9 % (11.5-14.5); RDW Standard Deviation 50.7 fL (36.4-46.3); Red Blood Count 3.32 M/uL (4.7-6.1); White Blood Count 7.09 K/uL (4.8-10.8)
[2020-04-03] MEDS: METOPROLOL TARTRATE 25 MG TAB PO SCH ×2 (05:51→11:27)
[2020-04-03 05:53] LABS: BUN Creatinine Ratio 21.2 (10-20); Calcium 8.6 mg/dl (8.5-10.1); Creatinine Clr Calc Pharmacy 45.5 ml/min; Est GFR (African American) 63.9; Est GFR (Non-African American) 55.2; Potassium 3.4 mmol/L (3.5-5.1)
[2020-04-03 05:56] LABS: Troponin I 0.108 ng/ml (0-0.045)
--- NOTE | 2020-04-03 06:06 | Electrocardiogram Report ---
Test Reason : Blood Pressure : / mmHG Vent. Rate : 128 BPM Atrial Rate : 150 BPM P-R Int : 000 ms QRS Dur : 096 ms QT Int : 360 ms P-R-T Axes : 000 -53 054 degrees QTc Int : 525 ms Probable Atrial flutter Incomplete right bundle branch block Left anterior fascicular block Abnormal ECG When compared with ECG of 26-FEB-2017 08:45, Atrial flutter has replaced Sinus rhythm HR has increased by 69 bpm Confirmed by Daniel Watson ([id number]) on 04/03/2020 6:05:29 AM Referred By: Confirmed By:Daniel Watson
[2020-04-03 08:24] LABS: Partial Thromboplastin Ratio 1.9
[2020-04-03 08:26] LABS: Partial Thromboplastin Time 54.1 Seconds (21.0-31.0)
[2020-04-03] MEDS ORDERED: CEROVITE ADV FORMULA TAB PO SCH (09:00)
[2020-04-03] MEDS ORDERED: allopurinoL 300 MG TAB PO SCH (09:00)
[2020-04-03] MEDS ORDERED: PANTOprazole 40 MG TAB PO SCH (09:00)
--- NOTE | 2020-04-03 10:38 | Discharge Summary ---
Date of Service April 03, 2020 Admission HPI Per Admitting Provider Alonso Rhodes is an 89 year old male who presents to the ER on advice of his PCP due to atrial fibrillation with RVR noted on routine check up. He is asymptomatic with this and denies any chest pain, shortness of breath, lightheadedness, although possibly has some fatigue which may be due to this but has been ongoing for weeks. He denies any prior heart attacks or strokes. He works out in the garden frequently and goes for walks without any chest pain or shortness of breath. He drinks approximately 5oz of gin or whisky daily. Drinks 8-12oz filter coffe daily. No other caffeine intake. In the ER he was noted to have an irregularly irregular rhythm with EKG with no discernable p waves consistent with a. fib. He was started on a heparin and diltiazem IV drip and referred to medicine for admission. Principal Diagnosis New onset atrial fibrillation Discharge Exam Constitutional WD/WN, vitals as above Neck trachea midline, no thyromegaly Respiratory normal respiratory effort, lungs clear to auscultation Cardiovascular Rate/Rhythm: regular rate and + irregularly irregular Heart Sounds: normal S1 and normal S2; no murmur Vessels: no JVD Extremities: normal capillary refill; no edema Gastrointestinal (Abdomen) normal bowel sounds, soft, nontender, no hepatosplenomegaly Musculoskeletal no cyanosis or clubbing, extremities motor strength 5/5 Skin no rashes, warm and dry Neurologic patellar DTR's 2+ bilat, sensation intact and PERRL, EOMI, accommodation nl, no face palsy, no dysarthria Psychiatric A+Ox3, euthymic affect Lymphatic no cervical or axillary lymphadenopathy Discharge Data Allergies Allergy/AdvReac Type Severity Reaction Status Date / Time No Known Allergies Allergy Unknown Verified 04/02/20 12:27 Consultations 04/02/20 12:09 ED Decision to Admit Stat 04/02/20 15:39 Consult Cardiology Routine Hospital Course (1) Atrial fibrillation with RVR: Asymptomatic Flutter/Fib rhythm on telemetry in ER good response to metoprolol discussed plan with Dr. 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 No acute workup required. (4) Chronic kidney disease, stage 3: At baseline. Monitor with AM labs. (5) Hypertension: BP low normal will stop lisinopril/HCTZ since he will be now on metoprolol 25mg BID follow up BP check with PCP next week Total Time Total Time Spent Total Time Spent (In Minutes): 33 Total Time Includes: Examination of the Patient, Discharge Planning, Medication Reconciliation and Communication With Other Providers (Dr. Lofton) Discharge Plan Discharge Items Patient Disposition: Home - Self-Care Reason For Visit: ATRIAL FIRBILLATION WITH RVR Discharge Diagnosis: Atrial fibrillation Condition on Discharge: Good Activity: Resume your previous activity Driving/Machine Use: Resume 1 day after discharge Weightbearing: Full weightbearing Non-emergency contact: Primary Care Provider and Roving Hauler Call non-emergency contact if: you have any medication questions and your symptoms worsen Follow-up/Referrals: Melvin Lofton MD [Physician] - 04/19/20 11:15 am (3-4 weeks) Moustapha Joshi MD [Primary Care Provider] - 04/09/20 11:10 am () Diet: Heart Healthy Addtl Attending Provider Instructions: Medications: - METOPROLOL: 25mg twice a day, start taking this evening - ELIQUIS: 5mg twice a day, start taking this evening Atrial fibrillation, new onset heart rate well controlled on metoprolol, will continue on discharge need to take Eliquis twice a day for stroke protection recommend that you follow up with Dr. Joshi in 1-[address] Lofton in several weeks try to cut back on alcohol and coffee intake as this can trigger atrial fibrillation as we discussed, stop taking the lisinopril/HCTZ since you will now be on metoprolol which can lower blood pressure Pending Studies at Discharge: No Stand-Alone Forms: My [employer], Smoking Cessation Medications and DC Order Prescriptions: New Eliquis 5 mg tablet 5 mg PO BID Qty: 60 RF: 3 metoprolol tartrate 25 mg tablet 25 mg PO BID Qty: 60 RF: 3 Continued atorvastatin 20 mg tablet 20 mg PO .COMPLEX Qty: 45 RF: 3 allopurinol 300 mg tablet 300 mg PO QAM RF: 0 esomeprazole magnesium 40 mg capsule,delayed release(DR/EC) 40 mg PO QAM RF: 0 sildenafil 100 mg tablet 100 mg PO .COMPLEX PRN (Reason: Erectile Dysfunction) RF: 0 PreserVision AREDS-2 [id number] lb-gqux-af-mg capsule 1 tab PO QAM RF: 0 celecoxib 200 mg capsule 200 mg PO QAM RF: 0 Discontinued lisinopril-hydrochlorothiazide 10-12.5 mg tablet 1 tab PO QAM Qty: 90 RF: 0 Discharge Orders: Discharge Order (Routine); Ordered 04/03/20 Ordered By: Delon Desouza Admission Data Admit Date/Time: 04/02/20 12:43 Attending Provider: Delon Desouza Admit Provider: Titus Romo Primary Care Provider: Moustapha Joshi Other Providers: Titus Romo ; Daniel Watson Other Interventions: Discharge Summary Assessment (RN) Last Done: 04/03/20 12:36 Coding Level of Care Code D/C Day Management >30 mins Diagnoses Atrial fibrillation with RVR I48.91 Elevated troponin R77.8 Anemia D64.9 Anemia type: unspecified type Chronic kidney disease, stage 3 N18.3 Hypertension I10
[2020-04-03] MEDS ORDERED: APIXABAN 5 MG TABLET PO ONE (11:30)
--- NOTE | 2020-04-03 12:32 | Cardiology Consultation ---
Date of Consultation April 03, 2020 Assessment & Plan (1) Atrial fibrillation with rapid ventricular response: (2) New onset a-fib: (3) Elevated troponin: (4) Chronic kidney disease, stage 3: (5) Hypertension: (6) Anemia: Patient with incidentally discovered atrial fibrillation and associated rapid ventricular rate who is essentially asymptomatic. Discussed with him at length the pathophysiology, prognosis, and treatment of atrial fibrillation. Recommend relatively low-dose beta-iris (metoprolol succinate 25-50 mg daily) for rate control, calcium channel iris less desirable given tendency toward hypotension. Recommend anticoagulation with apixaban 5 mg twice daily (his renal dysfunction is minimal), will need close follow-up given his pre-existing anemia, as noted previous GI work-up was negative for major bleeding source. Minor troponin elevation may be supply/demand mismatch or secondary to his minor renal dysfunction, troponin curve was flat without peak and decay, he has no symptoms, his ECG showed no ST deviation. No further work-up in the absence of ischemic symptoms. We did discuss potential precipitating factors for his atrial fibrillation, including alcohol related hypokalemia, he will substantially moderate his alcohol intake. Should not need a potassium supplement long-term, as his hypokalemia is likely related to the diuretic effects of alcohol. Cardiology follow-up 3 to 4 weeks to assess adequacy of rate control and ensure no bleeding complications from anticoagulation. History of Present Illness Reason for Consultation: afib Requesting Physician: Delon Desouza DO Attending Physician: Delon Desouza DO History of Present Illness 89-year-old man with moderate renal insufficiency, no significant cardiac history, who was incidentally noted to have new onset atrial fibrillation with rapid ventricular response at his primary physician's office and was admitted yesterday for rate control and initiation of anticoagulation. He is very physically active and denies any exertional dyspnea, chest discomfort, subjective palpitations, presyncope, syncope, or neurologic symptoms. 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 He denies any recent evidence of GI bleeding, noting no melena or hematochezia. His initial ventricular rate was 135 bpm, he was started on diltiazem infusion but developed some mild hypotension, this was discontinued. His rate this morning is in the 100 bpm range at rest. He is comfortable and had no complaints. Allergies Allergy/AdvReac Type Severity Reaction Status Date / Time No Known Allergies Allergy Unknown Verified 04/02/20 12:27 Home Medications Medication Instructions Recorded Confirmed Type allopurinol 300 mg tablet 300 mg PO QAM tab 01/21/19 04/02/20 History esomeprazole magnesium 40 mg 40 mg PO QAM cap 01/21/19 04/02/20 History capsule,delayed release sildenafil 100 mg tablet 100 mg PO .COMPLEX PRN tab 01/21/19 04/02/20 History vit C 250 mg-E 200 unit-zinc 40 1 tab PO QAM cap 09/20/19 04/02/20 History mg-copper 1 rj-lczsel-gubcvy capsule atorvastatin 20 mg tablet 20 mg PO .COMPLEX #45 tab 01/26/20 04/02/20 Rx celecoxib 200 mg PO QAM 04/02/20 04/02/20 History apixaban [Eliquis] 5 mg PO BID #60 tab 04/03/20 Rx metoprolol tartrate 25 mg PO BID #60 tab 04/03/20 Rx Patient History Medical History Abnormal cystoscopy Actinic keratosis Bilateral nephrolithiasis (2005) Bladder cancer (2017) Chronic kidney disease, stage 3 GI bleed Gout Hearing loss Hematuria (2018) History of basal cell carcinoma (2016) Hypercholesteremia Male erectile disorder of organic origin Vitamin D deficiency Surgical History H/O pyloroplasty H/O shoulder surgery S/P bladder tumor excision with fulguration (2016) S/P knee surgery Status post ORIF of fracture of ankle Family History Cancer Grandfather Social History Smoking Status: Never smoker Age Quit Using Tobacco: 32; Hx Alcohol Use: Yes Alcohol type: hard liquor Hx Substance Use: No Preferred Language: [place] Communication Ability: Effective Clothing Presser Required: No Beliefs That Will Affect Care: None marital status: Current Living Situation: Spouse Current Living Situation Comment: lives w/ current occupational status: retired Feels Safe at Home: Yes Assistive Devices: None Review of Systems Constitutional: no fever, no chills, no fatigue, no weight loss and no weight gain Eyes: no problem reported Ear, Nose, Mouth, Throat: no problem reported Respiratory: no cough and no dyspnea Cardiovascular: as per Subjective / HPI Gastrointestinal: as per Subjective / HPI and + abdominal pain (He has had longstanding nonspecific GI complaints with abdominal discomfort and "gas".); no change in stools Musculoskeletal: + joint pain Integumentary: no rash and no new lesions Neurologic: no falls and no syncope Psychiatric: no problem reported Hematologic / Lymphatic: no easy bleeding and no easy bruising Physical Exam Physical Exam: Elderly white male appears comfortable. Afebrile. Normotensive. Pulse approximately 100 bpm and irregular. Skin: no ecchymoses or generalized lesions. HEENT: unremarkable. Neck: Jugular venous pulse at the clavicle at 90 degrees, no carotid bruits. Lungs clear. Cardiac: irregular rhythm, 2/6 basal systolic ejection murmur which is nonradiating, no apical or diastolic murmur. No gallop. Abdomen benign. Extremities: no edema, pulses brisk. Neurologic: normal affect, nonfocal. Results & Data ([facility]) Vital Signs (Past 12 Hours) Vital Signs Temp Pulse Resp BP Pulse Ox 04/03/20 03:29 97.9 F 86 18 108/77 97 Laboratory Results Labs notable for hemoglobin 11.5, white count 3.32, normal platelet count. Potassium reduced at 3.4, BUN 25, creatinine 1.18. Troponin mildly elevated but flat curve (0.1080.115 range on 3 draws). Diagnostic Findings Chest x-ray unremarkable. Initial ECG in the doctor's office showed atrial fibrillation, left anterior fascicular block, ventricular rate 111 bpm. Subsequent hospital ECG showed atrial fibrillation with ventricular rate of 128 bpm, left anterior fascicular block. A later hospital ECG showed atrial fibrillation with left anterior fascicular block and ventricular rate of 77 bpm. (1) Anemia Anemia type: unspecified type Qualified Code(s): D64.9 - Anemia, unspecified
--- NOTE | 2020-04-03 16:37 | XCELERA ---
[id number]
--- NOTE | 2020-04-04 04:28 | Electrocardiogram Report ---
Test Reason : Blood Pressure : / mmHG Vent. Rate : 077 BPM Atrial Rate : 075 BPM P-R Int : 000 ms QRS Dur : 104 ms QT Int : 416 ms P-R-T Axes : 000 -54 073 degrees QTc Int : 470 ms Atrial flutter Left anterior fascicular block Abnormal ECG When compared with ECG of 02-APR-2020 11:22, Vent. rate has decreased BY 51 BPM Confirmed by Daniel Watson ([id number]) on 04/04/2020 4:28:07 AM Referred By: Moustapha Joshi Confirmed By:Daniel Watson
[2020-04-04] MEDS ORDERED: ATORVASTATIN 20 MG TAB PO SCH (09:00)
== END 2020-04-03 13:14 | disposition home or self-care (01) ==
LOC: ED 11:17 → SUATTDRO 12:43 → 1E 12:43 → INTOOBSV 12:43 → 1E 15:14

== ENCOUNTER 2020-08-04 07:05 | Inpatient (IN) ==
[2020-08-04] MEDS ORDERED: SODIUM CHLORIDE 0.9% 1000ML 500 ML IV ONE (07:28)
--- NOTE | 2020-08-04 07:31 | Emergency Department Note ---
Impression & Plan Elevated troponin, Vomiting, Weakness, Abnormal CT scan, gallbladder ED Provider Note NAME: Jocy BECK AGE: 89 SEX: M : 1930 ARRIVES VIA: Walk-In INFORMANT: Patient ED PROVIDER(S): Tyler Barnes DO CHIEF COMPLAINT: Abdominal pain HPI: Patient is an 89-year-old male who presents the ER for nausea, vomiting and abdominal pain. His symptoms have been going on since about the as he has not been feeling well. This occurred after the Covid vaccine/second shot. Over the past 3 days he notes he has been feeling worse. He has been spitting up in termittently and over the past 24 hours is when he started vomiting. He denies any headache or change in vision. No chest pain or shortness of breath. Denies any dysuria, urgency or frequency. Last bowel movement was in the past 24 hours. He admits to taking Lunesta at about 5 AM to help him sleep. This is his 's prescription. He has not prescribed that. He notes he does feel very tired after taking this medication. He has been taking it before. ROS: See above HPI for pertinent positives & negatives. A total of 10 systems reviewed and were otherwise negative. PAST MEDICAL HISTORY:See Below PAST SURGICAL HISTORY:See Below FAMILY HISTORY:See Below SOCIAL HISTORY:See Below HOME MEDICATIONS:See Below ALLERGIES:See Below VITALS:See Below PHYSICAL EXAMINATION: GENERAL: Sitting up in bed, alert, well appearing, well nourished, no distress, non-toxic EYE EXAM: normal conjunctiva. PERRL and EOM's grossly intact. OROPHARYNX: no exudate, no erythema, lips, buccal mucosa, and tongue normal and mucous membranes are moist NECK: supple, no nuchal rigidity, no adenopathy, non-tender LUNGS: Clear to auscultation. Normal chest wall mechanics HEART: no murmurs, S1 normal and S2 normal ABDOMEN: abdomen soft, non-tender, normo-active bowel sounds, no masses, no rebound or guarding. BACK: Back is symmetrical on inspection and there is no deformity, no midline tenderness, no CVA tenderness. SKIN: no rashes and no bruising UPPER EXTREMITIES: upper extremities are grossly normal. LOWER EXTREMITIES: No pitting edema. NEURO EXAM: Normal sensorium, cranial nerves II-XII grossly intact, normal speech, no gross weakness of arms, no gross weakness of legs. MEDICAL DECISION MAKING: Patient presents the ER for the above complaints. He is having abdominal pain. IV was established blood work obtained. Labs show no significant leukocytosis or anemia. Mild thrombocytopenia. INR at 1.8. BMP with creatinine 1.75 slightly up from baseline of 1.2. Lactate was normal. Bilirubin was slightly elevated at 1.4. LFTs were normal. Troponin was elevated at 0.265 up from baseline of about 0.1. Lipase was normal. UA was clean. Covid was negative. CT abdomen pelvis shows some stranding around the gallbladder. He was given IV Zosyn and fluids. He was updated bedside. He denied any chest pain or shortness of breath. Case was discussed with the hospitalist for further evaluation. Triage Nursing notes reviewed. Limited review of prior medical records performed Vital Signs: reviewed and remarkable for hypotension Differential diagnosis: Differential diagnoses includes but is not limited to gastritis, peptic ulcer disease, GERD, gallbladder disease, pancreatitis, small bowel obstruction, acute coronary syndrome, pericarditis, ischemic bowel, irritable bowel disease, irritable bowel syndrome, appendicitis, diverticulitis, malignancy, hernia, urinary tract infection, torsion, [/ectopic (if female)], perforation, trauma, infectious. ER treatment provided: See below Diagnostics interpreted by me: ECG: A. fib rate of 99 Left axis No PVCs Right bundle branch block Nonspecific ST wave changes in the high lateral leads QTC 541 Cardiac Monitoring: An order was placed for continuous cardiac monitoring. The monitor shows a rate of 94 with A. fib rhythm. Laboratory studies: As stated above and show below. Imaging studies: CT abdomen pelvis as discussed above Consultation(s): Discussed with Dr. Espinoza Farah from general surgery. Discussed with Dr. Tom Soni from the hospitalist service Procedures: none Critical Care: None Past Med/Surg History Medical History (Updated 08/04/20 @ 13:20 by Tyler Barnes DO) Abnormal cystoscopy Actinic keratosis Atrial fibrillation with rapid ventricular response (03/2020) Bilateral nephrolithiasis (2005) Bladder cancer (2017) Chronic kidney disease, stage 3 Elevated troponin GI bleed Gout Hearing loss Hematuria (2018) History of basal cell carcinoma (2017) Hypercholesteremia Male erectile disorder of organic origin Vitamin D deficiency Surgical History H/O pyloroplasty H/O shoulder surgery S/P bladder tumor excision with fulguration (2017) S/P knee surgery Status post ORIF of fracture of ankle Family History Grandfather Cancer Social History Smoking Status: Current some day smoker Age Quit Using Tobacco: 32; Hx Alcohol Use: Yes Alcohol type: hard liquor Hx Substance Use: No Preferred Language: Maldivian Communication Ability: Effective 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 Beliefs That Will Affect Care: None marital status: Current Living Situation: Spouse Current Living Situation Comment: lives w/ current occupational status: retired Feels Safe at Home: Yes Assistive Devices: None Allergies Allergies Allergy/AdvReac Type Severity Reaction Status Date / Time No Known Allergies Allergy Unknown Verified 08/04/20 07:47 Home Meds Home Medications Medication Instructions Recorded Confirmed allopurinol 300 mg tablet 300 mg PO QAM tab 01/21/19 08/04/20 esomeprazole magnesium 40 mg 40 mg PO QAM cap 01/21/19 08/04/20 capsule,delayed release sildenafil 100 mg tablet 100 mg PO UD PRN tab 01/21/19 08/04/20 vit C 250 mg-vit E 90 mg-zinc 40 1 tab PO QAM cap 09/20/19 08/04/20 mg-copper 1 [id number] capsule atorvastatin 20 mg PO UD 08/04/20 08/04/20 Previous Rx's Medication Instructions Recorded triamterene 37.5 1 tab PO DAILY #90 tab 06/13/20 mg-hydrochlorothiazide 25 mg tablet amiodarone 200 mg tablet 200 mg PO BID #60 tab 07/26/20 apixaban 5 mg tablet 5 mg PO BID #60 tab 07/26/20 digoxin 125 mcg (0.125 mg) tablet 125 mcg PO Q2D #45 tab 08/02/20 Results & Data (ED) Vital Signs Vital Signs - 24 hr 08/04/20 07:14 08/04/20 08:02 08/04/20 09:02 Temperature 36.3 C L Temperature Source Skin Pulse Rate 96 H Pulse Rate [Left Finger] 98 H 93 H Pulse Rhythm [Left Finger] Regular Pulse Strength [Left Finger] Normal Respiratory Rate 20 14 20 Respiratory Effort / Characteristics Non-Labored Spontaneous Non-Labored Non-Labored Respiratory Depth Normal Normal Normal Respiratory Pattern Regular Regular Blood Pressure 90/64 L Blood Pressure [Left Arm] 106/76 115/71 Blood Pressure Mean 72 Blood Pressure Mean [Left Arm] 86 85 Blood Pressure Position [Left Arm] Sitting Sitting Pulse Oximetry 98 95 93 Oxygen Delivery Method Room Air Room Air Room Air Sepsis Recent Fever Within 48 Hours No Sepsis New/Unexplained Change in Mental Status N/A Sepsis Action Taken by Nursing No Action Required 08/04/20 10:00 Temperature Temperature Source Pulse Rate Pulse Rate [Left Finger] 89 Pulse Rhythm [Left Finger] Regular Pulse Strength [Left Finger] Normal Respiratory Rate 20 Respiratory Effort / Characteristics Non-Labored Respiratory Depth Normal Respiratory Pattern Regular Blood Pressure Blood Pressure [Left Arm] 128/89 Blood Pressure Mean Blood Pressure Mean [Left Arm] 102 Blood Pressure Position [Left Arm] Sitting Pulse Oximetry 97 Oxygen Delivery Method Room Air Sepsis Recent Fever Within 48 Hours Sepsis New/Unexplained Change in Mental Status Sepsis Action Taken by Nursing Laboratory Data Result diagrams: 08/04/20 07:35 08/04/20 07:35 Lab Results 08/04/20 08/04/20 08/04/20 Range/Units 07:21 07:35 07:35 WBC 7.73 (4.8-10.8) K/uL RBC 3.89 L (4.7-6.1) M/uL Hgb 13.7 L (14.0-18.0) g/dL Hct 38.5 L (42-52) % MCV 99.0 (80-100) fL MCH 35.2 H (25-34) pg MCHC 35.6 (32-36) g/dL RDW Std Deviation 56.5 H (36.4-46.3) fL RDW Coeff of Osito 15.9 H (11.5-14.5) % Plt Count 165 (130-400) K/uL MPV 11.6 H (7.4-10.4) fL Immature Gran % (Auto) 0.4 % Neut % (Auto) 81.2 % Lymph % (Auto) 12.9 % Marin % (Auto) 5.3 % Eos % (Auto) 0.1 % Baso % (Auto) 0.1 % Neut # (Auto) 6.27 (1.4-6.5) K/uL Lymph # (Auto) 1.00 L (1.2-3.4) K/uL Marin # (Auto) 0.41 (0.11-0.59) K/uL Eos # (Auto) 0.01 (0-0.5) K/uL Baso # (Auto) 0.01 (0-0.2) K/uL Immature Gran # (Auto) 0.03 H (0.00-0.02) K/uL PT (9.0-12.0) Seconds INR (0.9-1.1) Sodium 138 (136-145) mmol/L Potassium 4.2 (3.5-5.1) mmol/L Chloride 108 H (98-107) mmol/L Carbon Dioxide 23 (21-32) mmol/L Anion Gap 7.0 (3-11) BUN 48 H (7-18) mg/dl Creatinine 1.75 H (0.6-1.4) mg/dl Est Cr Clr Drug Dosing 30.1 ml/min Est GFR ( Amer) 39.4 Est GFR (Non-Af Amer) 34.0 BUN/Creatinine Ratio 27.3 H (10-20) Glucose 127 H (70-99) mg/dl Lactate (0.4-2.0) mmol/L Calcium 9.4 (8.5-10.1) mg/dl Magnesium 2.1 (1.8-2.4) mg/dl Total Bilirubin 1.4 H (0.2-1) mg/dl AST 39 H (15-37) U/L ALT 61 (12-78) U/L Alkaline Phosphatase 125 H (45-117) U/L Troponin I 0.265 H* (0-0.045) ng/ml C-Reactive Protein (0-0.29) mg/dl Total Protein 7.1 (6.4-8.2) gm/dl Albumin 3.9 (3.4-5.0) gm/dl Globulin 3.2 (2.5-4.0) gm/dl Albumin/Globulin Ratio 1.2 (0.9-2) Lipase 151 (73-393) U/L Urine Color Urine Appearance (Clear) Urine pH (4.5-7.5) Ur Specific [place] (1.000-1.030) Urine Protein (Negative) Urine Glucose (UA) (Negative) Urine Ketones (Negative) Urine Blood (Negative) Urine Nitrite (Negative) Urine Bilirubin (Negative) Urine Urobilinogen (Negative) Ur Leukocyte Esterase (Negative) Urine WBC (Auto) (0-5) /hpf Urine RBC (Auto) (0-4) /hpf U Hyaline Cast (Auto) (0-5) /lpf U Epithel Cells (Auto) (0-5) /lpf Urine Bacteria (Auto) (Negative) Digoxin (0.8-2.0) ng/ml COVID-19 Eval Order SARS-CoV-2 (PCR) (Negative) Influenza Type A (PCR) (Neg) Influenza Type B (PCR) (Neg) RSV (RT-PCR) (Neg) 08/04/20 08/04/20 08/04/20 Range/Units 07:35 07:35 09:00 WBC (4.8-10.8) K/uL RBC (4.7-6.1) M/uL Hgb (14.0-18.0) g/dL Hct (42-52) % MCV (80-100) fL MCH (25-34) pg MCHC (32-36) g/dL RDW Std Deviation (36.4-46.3) fL RDW Coeff of Osito (11.5-14.5) % Plt Count (130-400) K/uL MPV (7.4-10.4) fL Immature Gran % (Auto) % Neut % (Auto) % Lymph % (Auto) % Marin % (Auto) % Eos % (Auto) % Baso % (Auto) % Neut # (Auto) (1.4-6.5) K/uL Lymph # (Auto) (1.2-3.4) K/uL Marin # (Auto) (0.11-0.59) K/uL Eos # (Auto) (0-0.5) K/uL Baso # (Auto) (0-0.2) K/uL Immature Gran # (Auto) (0.00-0.02) K/uL PT (9.0-12.0) Seconds INR (0.9-1.1) Sodium (136-145) mmol/L Potassium (3.5-5.1) mmol/L Chloride (98-107) mmol/L Carbon Dioxide (21-32) mmol/L Anion Gap (3-11) BUN (7-18) mg/dl Creatinine (0.6-1.4) mg/dl Est Cr Clr Drug Dosing ml/min Est GFR ( Amer) Est GFR (Non-Af Amer) BUN/Creatinine Ratio (10-20) Glucose (70-99) mg/dl Lactate (0.4-2.0) mmol/L Calcium (8.5-10.1) mg/dl Magnesium (1.8-2.4) mg/dl Total Bilirubin (0.2-1) mg/dl AST (15-37) U/L ALT (12-78) U/L Alkaline Phosphatase (45-117) U/L Troponin I (0-0.045) ng/ml C-Reactive Protein (0-0.29) mg/dl Total Protein (6.4-8.2) gm/dl Albumin (3.4-5.0) gm/dl Globulin (2.5-4.0) gm/dl Albumin/Globulin Ratio (0.9-2) Lipase (73-393) U/L Urine Color Dark Yellow Urine Appearance Cloudy A (Clear) Urine pH 5.0 (4.5-7.5) Ur Specific [place] 1.024 (1.000-1.030) Urine Protein 2+ H (Negative) Urine Glucose (UA) Negative (Negative) Urine Ketones Trace H (Negative) Urine Blood Negative (Negative) Urine Nitrite Negative (Negative) Urine Bilirubin 1+ H (Negative) Urine Urobilinogen Negative (Negative) Ur Leukocyte Esterase Negative (Negative) Urine WBC (Auto) 1-5 (0-5) /hpf Urine RBC (Auto) 0-4 (0-4) /hpf U Hyaline Cast (Auto) 1-5 (0-5) /lpf U Epithel Cells (Auto) 20-30 H (0-5) /lpf Urine Bacteria (Auto) Negative (Negative) Digoxin 0.2 L (0.8-2.0) ng/ml COVID-19 Eval Order CovFluRsv at [facility] SARS-CoV-2 (PCR) (Negative) Influenza Type A (PCR) (Neg) Influenza Type B (PCR) (Neg) RSV (RT-PCR) (Neg) 08/04/20 08/04/20 08/04/20 Range/Units 09:00 10:44 10:44 WBC (4.8-10.8) K/uL RBC (4.7-6.1) M/uL Hgb (14.0-18.0) g/dL Hct (42-52) % MCV (80-100) fL MCH (25-34) pg MCHC (32-36) g/dL RDW Std Deviation (36.4-46.3) fL RDW Coeff of Osito (11.5-14.5) % Plt Count (130-400) K/uL MPV (7.4-10.4) fL Immature Gran % (Auto) % Neut % (Auto) % Lymph % (Auto) % Marin % (Auto) % Eos % (Auto) % Baso % (Auto) % Neut # (Auto) (1.4-6.5) K/uL Lymph # (Auto) (1.2-3.4) K/uL Marin # (Auto) (0.11-0.59) K/uL Eos # (Auto) (0-0.5) K/uL Baso # (Auto) (0-0.2) K/uL Immature Gran # (Auto) (0.00-0.02) K/uL PT 17.0 H (9.0-12.0) Seconds INR 1.8 H (0.9-1.1) Sodium (136-145) mmol/L Potassium (3.5-5.1) mmol/L Chloride (98-107) mmol/L Carbon Dioxide (21-32) mmol/L Anion Gap (3-11) BUN (7-18) mg/dl Creatinine (0.6-1.4) mg/dl Est Cr Clr Drug Dosing ml/min Est GFR ( Amer) Est GFR (Non-Af Amer) BUN/Creatinine Ratio (10-20) Glucose (70-99) mg/dl Lactate 1.9 (0.4-2.0) mmol/L Calcium (8.5-10.1) mg/dl Magnesium (1.8-2.4) mg/dl Total Bilirubin (0.2-1) mg/dl AST (15-37) U/L ALT (12-78) U/L Alkaline Phosphatase (45-117) U/L Troponin I (0-0.045) ng/ml C-Reactive Protein (0-0.29) mg/dl Total Protein (6.4-8.2) gm/dl Albumin (3.4-5.0) gm/dl Globulin (2.5-4.0) gm/dl Albumin/Globulin Ratio (0.9-2) Lipase (73-393) U/L Urine Color Urine Appearance (Clear) Urine pH (4.5-7.5) Ur Specific [place] (1.000-1.030) Urine Protein (Negative) Urine Glucose (UA) (Negative) Urine Ketones (Negative) Urine Blood (Negative) Urine Nitrite (Negative) Urine Bilirubin (Negative) Urine Urobilinogen (Negative) Ur Leukocyte Esterase (Negative) Urine WBC (Auto) (0-5) /hpf Urine RBC (Auto) (0-4) /hpf U Hyaline Cast (Auto) (0-5) /lpf U Epithel Cells (Auto) (0-5) /lpf Urine Bacteria (Auto) (Negative) Digoxin (0.8-2.0) ng/ml COVID-19 Eval Order SARS-CoV-2 (PCR) NEGATIVE (Negative) Influenza Type A (PCR) Negative (Neg) Influenza Type B (PCR) Negative (Neg) RSV (RT-PCR) Negative (Neg) 08/04/20 Range/Units 10:44 WBC (4.8-10.8) K/uL RBC (4.7-6.1) M/uL Hgb (14.0-18.0) g/dL Hct (42-52) % MCV (80-100) fL MCH (25-34) pg MCHC (32-36) g/dL RDW Std Deviation (36.4-46.3) fL RDW Coeff of Osito (11.5-14.5) % Plt Count (130-400) K/uL MPV (7.4-10.4) fL Immature Gran % (Auto) % Neut % (Auto) % Lymph % (Auto) % [place] % (Auto) % Eos % (Auto) % Baso % (Auto) % Neut # (Auto) (1.4-6.5) K/uL Lymph # (Auto) (1.2-3.4) K/uL Marin # (Auto) (0.11-0.59) K/uL Eos # (Auto) (0-0.5) K/uL Baso # (Auto) (0-0.2) K/uL Immature Gran # (Auto) (0.00-0.02) K/uL PT (9.0-12.0) Seconds INR (0.9-1.1) Sodium (136-145) mmol/L Potassium (3.5-5.1) mmol/L Chloride (98-107) mmol/L Carbon Dioxide (21-32) mmol/L Anion Gap (3-11) BUN (7-18) mg/dl Creatinine (0.6-1.4) mg/dl Est Cr Clr Drug Dosing ml/min Est GFR ( Amer) Est GFR (Non-Af Amer) BUN/Creatinine Ratio (10-20) Glucose (70-99) mg/dl Lactate (0.4-2.0) mmol/L Calcium (8.5-10.1) mg/dl Magnesium (1.8-2.4) mg/dl Total Bilirubin (0.2-1) mg/dl AST (15-37) U/L ALT (12-78) U/L Alkaline Phosphatase (45-117) U/L Troponin I (0-0.045) ng/ml C-Reactive Protein 0.33 H (0-0.29) mg/dl Total Protein (6.4-8.2) gm/dl Albumin (3.4-5.0) gm/dl Globulin (2.5-4.0) gm/dl Albumin/Globulin Ratio (0.9-2) Lipase (73-393) U/L Urine Color Urine Appearance (Clear) Urine pH (4.5-7.5) Ur Specific [place] (1.000-1.030) Urine Protein (Negative) Urine Glucose (UA) (Negative) Urine Ketones (Negative) Urine Blood (Negative) Urine Nitrite (Negative) Urine Bilirubin (Negative) Urine Urobilinogen (Negative) Ur Leukocyte Esterase (Negative) Urine WBC (Auto) (0-5) /hpf Urine RBC (Auto) (0-4) /hpf U Hyaline Cast (Auto) (0-5) /lpf U Epithel Cells (Auto) (0-5) /lpf Urine Bacteria (Auto) (Negative) Digoxin (0.8-2.0) ng/ml COVID-19 Eval Order SARS-CoV-2 (PCR) (Negative) Influenza Type A (PCR) (Neg) Influenza Type B (PCR) (Neg) RSV (RT-PCR) (Neg) Administered Medications Heparin Sodium/Dextrose (Heparin Sodium/Dextrose) 25,000 units in 500 mls @ 27 mls/hr IV .[id number] [facility]; Protocol Stop: 09/03/20 10:44 Last Admin: 08/04/20 12:22 Dose: 1,350 units/hr, 27 mls/hr Documented by: [id number] Cosigned by: [id number] Discontinued Medications Heparin Sodium/Dextrose (Heparin Iv Standard *No* Bolus) 1 ea N/A ONE ONE; Protocol Stop: 08/04/20 10:39 Last Admin: 08/04/20 12:21 Dose: 1 ea Documented by: [id number] Sodium Chloride (Nss 1000ml) 500 mls @ 999 mls/hr IV .Q31M ONE Stop: 08/04/20 07:58 Last Infusion: 08/04/20 08:20 Dose: 0 mls/hr Documented by: [id number] Admin: 08/04/20 07:49 Dose: 999 mls/hr Documented by: [id number] Piperacillin Sod/Tazobactam Sod (Zosyn) 4.5 gm in 120 mls @ 240 mls/hr IV NOW ONE Stop: 08/04/20 10:19 Last Infusion: 08/04/20 10:40 Dose: 0 mls/hr Documented by: [id number] Admin: 08/04/20 10:04 Dose: 240 mls/hr Documented by: [id number] Ioversol (Ioversol 100ml) 93 ml IV ONCE ONE Stop: 08/04/20 07:42 Last Admin: 08/04/20 07:41 Dose: 93 ml Documented by: [id number] Discharge Plan Visit Data Chief Complaint: Abdominal Pain Stated Complaint: STOMACH ACHE ED Provider: Tyler Barnes Discharge Problem: Elevated troponin, Vomiting, Weakness, Abnormal CT scan, gallbladder Forms Stand Alone Forms: [facility] [employer] Prescriptions Prescriptions: No Action triamterene-hydrochlorothiazid 37.5-25 mg tablet 1 tab PO DAILY Qty: 90 RF: 3 allopurinol 300 mg tablet 300 mg PO QAM RF: 0 esomeprazole magnesium 40 mg capsule,delayed release(DR/EC) 40 mg PO QAM RF: 0 sildenafil 100 mg tablet 100 mg PO UD PRN (Reason: Erectile Dysfunction) RF: 0 amiodarone 200 mg tablet 200 mg PO BID Qty: 60 RF: 8 Eliquis 5 mg tablet 5 mg PO BID Qty: 60 RF: 3 PreserVision AREDS-2 [id number]-mg capsule 1 tab PO QAM RF: 0 digoxin [Digox] 125 mcg (0.125 mg) tablet 125 mcg PO Q2D Qty: 45 RF: 3 atorvastatin 20 mg tablet 20 mg PO UD RF: 0 Discharge Problem: Vomiting Qualifiers: Vomiting type: unspecified Vomiting Intractability: unspecified Nausea presence: with nausea Qualified Code(s): R11.2 - Nausea with vomiting, unspecified
[2020-08-04] MEDS ORDERED: OPTIRAY 320 100ml IV ONE (07:41)
[2020-08-04 07:45] LABS: Appearance Urine Cloudy (Clear); Bacteria Urine Automated Negative (Negative); Blood Urine Negative (Negative); Color Urine Dark Yellow; Epithelial Cell Urine Auto 20-30 /lpf (0-5); Glucose Urine UA Negative (Negative); Ketones Urine Trace (Negative); Leukocyte Esterase Urine Negative (Negative); Nitrite Urine Negative (Negative); Protein Urine 2+ (Negative); RBC Urine Automated 0-4 /hpf (0-4); Specific Gravity Urine 1.024 (1.000-1.030); Urobilinogen Urine Negative (Negative)
[2020-08-04 08:01] LABS: Bilirubin Urine 1+ (Negative)
[2020-08-04 08:02] LABS: Basophils # (auto) 0.01 K/uL (0-0.2); Basophils % (auto) 0.1 %; Eosinophils # (auto) 0.01 K/uL (0-0.5); Eosinophils % (auto) 0.1 %; Hematocrit (blood only) 38.5 % (42-52); Hemoglobin 13.7 g/dL (14.0-18.0); Immature Granulocytes # (auto) 0.03 K/uL (0.00-0.02); Immature Granulocytes % (auto) 0.4 %; Lymphocytes % (auto) 12.9 %; Mean Corpuscular Hemoglobin 35.2 pg (25-34); Mean Corpuscular Hgb Conc 35.6 g/dL (32-36); Mean Platelet Volume 11.6 fL (7.4-10.4); Monocytes # (auto) 0.41 K/uL (0.11-0.59); Monocytes % (auto) 5.3 %; Neutrophils # (auto) 6.27 K/uL (1.4-6.5); Neutrophils % (auto) 81.2 %; Platelet Count 165 K/uL (130-400); RDW Coefficient of Variation 15.9 % (11.5-14.5); RDW Standard Deviation 56.5 fL (36.4-46.3); Red Blood Count 3.89 M/uL (4.7-6.1); White Blood Count 7.73 K/uL (4.8-10.8)
[2020-08-04 08:07] LABS: Albumin Level 3.9 gm/dl (3.4-5.0); BUN Creatinine Ratio 27.3 (10-20); Calcium 9.4 mg/dl (8.5-10.1); Creatinine Clr Calc Pharmacy 30.1 ml/min; Est GFR (African American) 39.4; Potassium 4.2 mmol/L (3.5-5.1)
[2020-08-04 08:15] LABS: Albumin Globulin Ratio 1.2 (0.9-2); Bilirubin,Total 1.4 mg/dl (0.2-1); Globulin 3.2 gm/dl (2.5-4.0); Total Protein 7.1 gm/dl (6.4-8.2); Troponin I 0.265 ng/ml (0-0.045)
--- NOTE | 2020-08-04 09:40 | CT Scan Report ---
ABDOMEN AND PELVIS CT WITH IV CONTRAST CT DOSE: 367.56 mGy.cm HISTORY: abd pain periumbilical TECHNIQUE: Multiaxial CT images of the abdomen and pelvis were performed following the use of intrave nous contrast. A dose lowering technique was utilized adhering to the principles of ALARA. COMPARISON STUDY: Abdomen and pelvis CT 03/15/2014. FINDINGS: The heart is mildly enlarged. There is a small right pleural effusion. Partially visualized low-density right pericardial lesion measuring 3.3 cm. This has slightly increased in size compared the prior study and favors a pericardial cyst. Mild interstitial thickening at the lung bases which i s likely chronic. No pneumoperitoneum. No pneumatosis. There is a left total hip arthroplasty. No mayo picious lytic or blastic osseous lesions. A few small diverticulum at the second portion of the duode num. No hepatic or splenic masses. The adrenal glands and pancreas are unremarkable. Moderate bilater al cortical renal thinning. There are few punctate bilateral renal calculi. No ureteral calculi. No h ydronephrosis. The bladder is not well visualized due to the metallic artifact from the left hip pros thesis. No definite bladder wall thickening. There is mild inflammatory change surrounding the gallbl adder. This could represent a developing acute cholecystitis. Trace ascites seen throughout the abdom en and pelvis. No retroperitoneal lymphadenopathy. Extensive calcified plaque within the normal calib er abdominal aorta. A right bladder diverticulum remains unchanged. Colonic diverticulosis. No eviden ce for acute diverticulitis. No definite bowel wall thickening or obstruction. Normal caliber appendi x. IMPRESSION: 1. Inflammatory change surrounding the gallbladder. This could represent a developing acute cholecyst itis. Surgical consultation advised. 2. No definite bowel wall thickening or obstruction. 3. Small right pleural effusion. 4. Bilateral nephrolithiasis. No ureteral stones. No hydronephrosis. 5. Normal appendix. 6. Colonic diverticulosis. No evidence for acute diverticulitis. 7. Trace ascites. ACT 112: Negative or not required by law. Electronically signed by: Garland Prado M.D. 08/04/2020 9:38 AM
[2020-08-04] MEDS ORDERED: PIPERACILL/TAZOBAC CONSULT ACTIVE PRN ×2 (09:50→13:41)
[2020-08-04] MEDS ORDERED: PIPERACILLIN/TAZOBACTAM 4.5 GM/120 ML BAG IV ONE (09:50)
[2020-08-04 09:59] LABS: Influenza A virus by PCR Negative (Neg); Influenza B virus by PCR Negative (Neg); RSV by PCR Negative (Neg); SARS CoV2 RNA(COVID-19) InHosp NEGATIVE (Negative)
--- NOTE | 2020-08-04 10:12 | Surgery Consultation ---
Date of Consultation August 04, 2020 Assessment & Plan (1) Abdominal pain: This is an 89y M with a PMH of CHF, Afib on eliquis, HTN, CKD, bladder ca who presented to the [facility] ED on 08/04/20 with complaints of abdominal pain, nausea/vomiting. In the ER a CT a/p was obtained and revealed findings of inflammatory change surrounding the gallbladder, which could represent a developing acute cholecystitis. Labs revealed a WBC 7.7, Cr: 1.7, elevated troponin of 0.265, and LFT's--> Tb: 1.4, AST: 39, ALT: 61, AlkP: 125. On examination patient's abdomen is soft, non distended, with tenderness in the epigastric region. At this time we will order a HIDA scan for further evaluation of patient's gallbladder. Hospitalists are planning on admission and appreciate their input regarding his cardiac status regarding clearance for surgery. Patient does follow with Dr. Lofton with cardiology as an outpatient. Would hold his apixaban for now in anticipation of surgical intervention this admission, may start heparin gtt if indicated. Keep NPO at midnight in the event we proceed tomorrow. We will continue to follow closely. Patient seen by Dr. Farah in the ER. Dr. Farah-I saw the patient in the emergency room. I am concerned he has acute cholecystitis and may progress to necrotizing cholecystitis. Depending on findings of the HIDA scan and progress with his cardiac evaluation we may proceed with laparoscopic cholecystectomy in the next 24 to 48 hours. History of Present Illness History of Present Illness This is an 89y M with a PMH of CHF, Afib on eliquis, HTN, CKD, bladder ca who presented to the [facility] ED on 08/04/20 with complaints of abdominal pain, nausea/vomiting. Patient reports his abdominal discomfort has been present for >1 week now, describing it as located in the mid-abdomen that is a constant dull & full like feeling. He recently developed nausea and vomited x2 this AM which prompted him to come into the ER for further evaluation. In the ER patient underwent a CT a/p that revealed findings of inflammatory change surrounding the gallbladder, which could represent a developing acute cholecystitis. Patient denies any fevers/chills, chest pain/shortness of breath, or diarrhea. He states he has new abdominal bloating and constipation which is his baseline. He states his appetite has been low over the past few months, but does not notice any food intake association with the pain. He states some of his pills makes his abdominal discomfort worse, but cannot pin-point which ones. His prior abdominal surgical history includes a pyloroplasty as a child for pyloric stenosis. Allergies Allergy/AdvReac Type Severity Reaction Status Date / Time No Known Allergies Allergy Unknown Verified 08/04/20 07:47 Home Medications Medication Instructions Recorded Confirmed Type allopurinol 300 mg tablet 300 mg PO QAM tab 01/21/19 08/04/20 History esomeprazole magnesium 40 mg 40 mg PO QAM cap 01/21/19 08/04/20 History capsule,delayed release sildenafil 100 mg tablet 100 mg PO UD PRN tab 01/21/19 08/04/20 History vit C 250 mg-vit E 90 mg-zinc 40 1 tab PO QAM cap 09/20/19 08/04/20 History mg-copper 1 cz-hqdbha-eyzwbl capsule triamterene 37.5 1 tab PO DAILY #90 tab 06/13/20 08/04/20 Rx mg-hydrochlorothiazide 25 mg tablet amiodarone 200 mg tablet 200 mg PO BID #60 tab 07/26/20 08/04/20 Rx apixaban 5 mg tablet 5 mg PO BID #60 tab 07/26/20 08/04/20 Rx digoxin 125 mcg (0.125 mg) tablet 125 mcg PO Q2D #45 tab 08/02/20 08/04/20 Rx atorvastatin 20 mg PO UD 08/04/20 08/04/20 History Patient History Medical History (Updated 08/04/20 @ 11:21 by BENY Alba) Abnormal cystoscopy Actinic keratosis Atrial fibrillation with rapid ventricular response (03/2020) Bilateral nephrolithiasis (2005) Bladder cancer (2017) Chronic kidney disease, stage 3 Elevated troponin GI bleed Gout Hearing loss Hematuria (2018) History of basal cell carcinoma (2017) Hypercholesteremia Male erectile disorder of organic origin Vitamin D deficiency Surgical History H/O pyloroplasty H/O shoulder surgery S/P bladder tumor excision with fulguration (2016) S/P knee surgery Status post ORIF of fracture of ankle Family History Grandfather Cancer Social History Smoking Status: Current some day smoker Age Quit Using Tobacco: 32; Hx Alcohol Use: Yes Alcohol type: hard liquor Hx Substance Use: No Preferred Language: Dutch Communication Ability: Effective Program Evaluation Consultant Required: No Beliefs That Will Affect Care: None marital status: Current Living Situation: Spouse Current Living Situation Comment: lives w/ current occupational status: retired Feels Safe at Home: Yes Assistive Devices: None Review of Systems Constitutional: + weight loss (10 pounds over last 6 months); no fever and no chills Respiratory: no dyspnea Cardiovascular: no chest pain Gastrointestinal: + abdominal pain (mid upper abdomen), + bloating, + nausea, + vomiting and + constipation (constipated at baseline) Physical Exam Physical Exam: awake/alert Constitutional: well developed and well nourished; no acute distress Respiratory: normal respiratory effort Gastrointestinal (Abdomen): Inspection/Auscultation: + abdominal surgical scar (upper midline scar from prior pyloric stenosis sx); abdomen not distended Percussion/Palpation: + abdomen tender (in epigastric region) and abdomen soft Results & Data ([facility]) Vital Signs (Past 12 Hours) Vital Signs Temp Pulse Pulse Resp BP BP Pulse Ox 08/04/20 09:02 93 H 20 115/71 93 08/04/20 08:02 98 H 14 106/76 95 08/04/20 07:14 36.3 C L 96 H 20 90/64 L [address] WITH IV CONTRAST CT DOSE: 367.56 mGy.cm HISTORY: abd pain periumbilical TECHNIQUE: Multiaxial CT images of the abdomen and pelvis were performed following the use of intravenous contrast. A dose lowering technique was utilized adhering to the principles of ALARA. COMPARISON STUDY: Abdomen and pelvis CT 03/15/2014. FINDINGS: The heart is mildly enlarged. There is a small right pleural effusion. Partially visualized low-density right pericardial lesion measuring 3.3 cm. This has slightly increased in size compared the prior study and favors a pericardial cyst. Mild interstitial thickening at the lung bases which is likely chronic. No pneumoperitoneum. No pneumatosis. There is a left total hip arthroplasty. No suspicious lytic or blastic osseous lesions. A few small diverticulum at the second portion of the duodenum. No hepatic or splenic masses. The adrenal glands and pancreas are unremarkable. Moderate bilateral cortical renal thinning. There are few punctate bilateral renal calculi. No ureteral calculi. No hydronephrosis. The bladder is not well visualized due to the metallic artifact from the left hip prosthesis. No definite bladder wall thickening. There is mild inflammatory change surrounding the gallbladder. This could represent a developing acute cholecystitis. Trace ascites seen throughout the abdomen and pelvis. No retroperitoneal lymphadenopathy. Extensive calcified plaque within the normal caliber abdominal aorta. A right bladder diverticulum remains unchanged. Colonic diverticulosis. No evidence for acute diverticulitis. No definite bowel wall thickening or obstruction. Normal caliber appendix. IMPRESSION: 1. Inflammatory change surrounding the gallbladder. This could represent a developing acute cholecystitis. Surgical consultation advised. 2. No definite bowel wall thickening or obstruction. 3. Small right pleural effusion. 4. Bilateral nephrolithiasis. No ureteral stones. No hydronephrosis. 5. Normal appendix. 6. Colonic diverticulosis. No evidence for acute diverticulitis. 7. Trace ascites. ACT 112: Negative or not required by law. Electronically signed by: Garland Prado M.D. 08/04/2020 9:38 AM PG Care Time/CCT Total # of Minutes Spent Total Time Spent with Patient: Total time spent is greater than 50% in coordination of care (as documented) at patient's floor/unit and/or counseling patient: Coding Level of Care Code 42925 Initial Inpt Care Lvl 1 Diagnoses Abdominal pain R10.9
[2020-08-04] MEDS ORDERED: Heparin IV Adult Wt-Based Standard *NO* Bolus Protocol ONE (10:38)
--- NOTE | 2020-08-04 10:46 | History & Physical Report ---
Date of Service August 04, 2020 Assessment & Plan (1) Abdominal pain: As per HPI ~week of abdominal pain with nausea and loss of appetite. Pain is sub-xiphoid - CT scan of abdomen done- possible acute cholecystics- GS following - Hold Apixaban- started on heparin drip no bolus. - Last dose of Apixaban was [id number] 1800 - NPO - D5LR at 100 cc/hr- gently replete his intravascular volume - Morphine for pain - Lipase 51 (2) Acalculous cholecystitis: As above and per GS recomendations- appreciate their assitance - HIDA scan to follow - Zosyn 3.375 GM IV q8 - Continue cardiac clearance and antibiotics (3) Elevated troponin: No acute changes on ECG, no cardiac symptoms, likely type II do to acute illness - Trend troponins q6 hours until peak and drop - ECG with troponins - Heparin for Afib/aflutter prophy while holding apixaban (4) Heart failure with preserved ejection fraction: hfPreF- last ECHO 2019- will repeat this admission to evaluate heart function and valves - systollic murmur which patient has had in the past - Continues his diuretics (5) Dyslipidemia: Statin on hold- recenlty held by cardilogist in July 2020 for myalgias and likely contributing with amiodarone useage as well. - no acute needs (6) Chronic kidney disease, stage 3: Mild elevation in his BUN and FLIGHT PARAMEDIC on admission - Will gently resuscitate as his PO intake has been decreased over the past few days- hold diuretic at this time- restart when intravascular repeated. - UA with protein, no blood avoid nephrotoxic medications and if needed minimize exposure time as possible - keep patient euvolemic (7) Bladder cancer: No acute needs- will bladder scan [place] if needed (8) Afib: Rate controlled- Cotinue amiodarone and digoxin - digoxin level subtherapuetic- follow in morning - Heparin drip no bolus as above - restart apixaban when appropriate Mag level for QT (9) Pleural effusion: History of Present Illness Chief Complaint: abdominal pain Primary Care Provider: Moustapha Joshi MD 89 YOM with past medical history significant for bladder cancer (TURBT 2013), Afib/flutter( on amiodarone and apixaban), hfPef, HLD, carotid atherosclerosis, CKD III, kidney stones, HTN, pyloric stenosis at , gout, pericardial cyst, plueral effusion, GERD. Comes in to the emergency room for ~ 1 week of abdominal discomfort that worsened over the past 2-3 days with subjective fever and vomiting last night. In the emergency room it was noted that he had elevated biliary labs and a CT scan of the abdomen and pelvis that revealed possible cholecystitis. General Surgery is already evaluating the patient and appreciate their assistance. The patien'ts pain is sub-xyphoid and center of abdomen with no radiation, assoiciated as above with 1 episode of vomiting, also with decreased appetite for the past 2 weeks. He has not noted any relief with his current esomeprazole. He has not ate or taken his medications this morning. It was also noted his troponin to be mildly elevated with symptoms as above and no acute changes on ECG. Patient will be admitted to trend troponin, ECHO, evaluation of his gall-bladder, started on heparin drip and antibiotics; will keep NPO until studies done. Allergies Allergy/AdvReac Type Severity Reaction Status Date / Time No Known Allergies Allergy Unknown Verified 08/04/20 07:47 Home Medications Medication Instructions Recorded Confirmed Type allopurinol 300 mg tablet 300 mg PO QAM tab 01/21/19 08/04/20 History esomeprazole magnesium 40 mg 40 mg PO QAM cap 01/21/19 08/04/20 History capsule,delayed release sildenafil 100 mg tablet 100 mg PO UD PRN tab 01/21/19 08/04/20 History vit C 250 mg-vit E 90 mg-zinc 40 1 tab PO QAM cap 09/20/19 08/04/20 History mg-copper 1 rf-yemndk-zbfena capsule triamterene 37.5 1 tab PO DAILY #90 tab 06/13/20 08/04/20 Rx mg-hydrochlorothiazide 25 mg tablet amiodarone 200 mg tablet 200 mg PO BID #60 tab 07/26/20 08/04/20 Rx apixaban 5 mg tablet 5 mg PO BID #60 tab 07/26/20 08/04/20 Rx digoxin 125 mcg (0.125 mg) tablet 125 mcg PO Q2D #45 tab 08/02/20 08/04/20 Rx atorvastatin 20 mg PO UD 08/04/20 08/04/20 History Past Med/Surg History Medical History (Updated 08/04/20 @ 13:20 by Tyler Barnes DO) Abnormal cystoscopy Actinic keratosis Atrial fibrillation with rapid ventricular response (03/2020) Bilateral nephrolithiasis (2006) Bladder cancer (2017) Chronic kidney disease, stage 3 Elevated troponin GI bleed Gout Hearing loss Hematuria (2019) History of basal cell carcinoma (2017) Hypercholesteremia Male erectile disorder of organic origin Vitamin D deficiency Surgical History H/O pyloroplasty H/O shoulder surgery S/P bladder tumor excision with fulguration (2017) S/P knee surgery Status post ORIF of fracture of ankle Family History Grandfather Cancer Social History Smoking Status: Former smoker Age Quit Using Tobacco: 32; Smoking End Date: 1962; Second Hand Exposure: No; Do You Dip or Chew Tobacco: No; Tobacco Cessation Education Requested by Patient: No Hx Alcohol Use: Yes Alcohol type: hard liquor Hx Substance Use: No Preferred Language: [place] Communication Ability: Effective Summer Associate Required: No Beliefs That Will Affect Care: None marital status: Current Living Situation: Spouse Current Living Situation Comment: lives w/ current occupational status: retired Other Information That Helps Us Care for You: No Feels Safe at Home: Yes Safety Concerns: Feels Safe At This Time Assistive Devices: None Review of Systems Review of Systems: REVIEW OF SYSTEMS: Constitutional: (+) fever, weight loss, sweats or chills, Eyes: No diplopia, no worsening or blurred vision ENT: normal hearing, no trouble swallowing Respiratory: No cough, sputum, dyspnea at rest or on exertion Cardiovascular: No chest pain, tightness or palpitations Abdomen: (+) pain, nausea, vomiting, (-) diarrhea or constipation Musculoskeletal: No joint pain, calf pain, swelling Neurologic: No weakness, numbness/tingling, or balance problems Psychiatric: No anxiety or depression Skin: No rash or itch Physical Exam 2 Physical Exam: PHYSICAL EXAM: General: awake, alert, no apparent distress Head: Normocephalic, atraumatic ENT: PERRLA, EOMI, no pharyngeal exudate, mucous membranes moist Neuro: AAO x 3, speech clear and appropriate, strength intact bilaterally 5/5, sensation intact and equal all extremities and dermatomes, no pronator drift Chest: equal rise and fall of the chest, no accessory muscle use, no heaves or thrills, Clear to auscultation, on room air, Cardiac: Regular rate and rhythm, telemetry reviewed, skin warm dry, cap refill <3 seconds, peripheral pulses +2 no JVD, no murmur, no edema GI: NABS x 4 quadrants, soft, tender to palpation (+) Johnson's sign, no rebound, guarding, liver not enlarged, spleen not enlarged : Spontaneously voiding, no pain, no CVA tenderness, Extremities: Normal inspection, no peripheral edema or erythema, calfs nontender to palpation Psych: Normal mood and affect Skin: no rash or erythema Results & Data Results & Data ([facility]) Vital Signs (Past 12 Hours) Vital Signs Temp Pulse Pulse Resp BP BP Pulse Ox 08/04/20 10:00 89 20 128/89 97 08/04/20 09:02 93 H 20 115/71 93 08/04/20 08:02 98 H 14 106/76 95 08/04/20 07:14 36.3 C L 96 H 20 90/64 L 98 Laboratory Results Abnormal lab results 08/04/20 08/04/20 08/04/20 Range/Units 07:35 07:35 07:35 RBC 3.89 L (4.7-6.1) M/uL Hgb 13.7 L (14.0-18.0) g/dL Hct 38.5 L (42-52) % MCH 35.2 H (25-34) pg RDW Std Deviation 56.5 H (36.4-46.3) fL RDW Coeff of Osito 15.9 H (11.5-14.5) % MPV 11.6 H (7.4-10.4) fL Lymph # (Auto) 1.00 L (1.2-3.4) K/uL Immature Gran # (Auto) 0.03 H (0.00-0.02) K/uL Chloride 108 H (98-107) mmol/L BUN 48 H (7-18) mg/dl Creatinine 1.75 H (0.6-1.4) mg/dl BUN/Creatinine Ratio 27.3 H (10-20) Glucose 127 H (70-99) mg/dl Total Bilirubin 1.4 H (0.2-1) mg/dl AST 39 H (15-37) U/L Alkaline Phosphatase 125 H (45-117) U/L Troponin I 0.265 H* (0-0.045) ng/ml Urine Appearance (Clear) Urine Protein (Negative) Urine Ketones (Negative) Urine Bilirubin (Negative) U Epithel Cells (Auto) (0-5) /lpf Digoxin 0.2 L (0.8-2.0) ng/ml 08/04/20 Range/Units 07:35 RBC (4.7-6.1) M/uL Hgb (14.0-18.0) g/dL Hct (42-52) % MCH (25-34) pg RDW Std Deviation (36.4-46.3) fL RDW Coeff of Osito (11.5-14.5) % MPV (7.4-10.4) fL Lymph # (Auto) (1.2-3.4) K/uL Immature Gran # (Auto) (0.00-0.02) K/uL Chloride (98-107) mmol/L BUN (7-18) mg/dl Creatinine (0.6-1.4) mg/dl BUN/Creatinine Ratio (10-20) Glucose (70-99) mg/dl Total Bilirubin (0.2-1) mg/dl AST (15-37) U/L Alkaline Phosphatase (45-117) U/L Troponin I (0-0.045) ng/ml Urine Appearance Cloudy A (Clear) Urine Protein 2+ H (Negative) Urine Ketones Trace H (Negative) Urine Bilirubin 1+ H (Negative) U Epithel Cells (Auto) 20-30 H (0-5) /lpf Digoxin (0.8-2.0) ng/ml Diagnostic Findings ABDOMEN AND PELVIS CT WITH IV CONTRAST CT DOSE: 367.56 mGy.cm HISTORY: abd pain periumbilical TECHNIQUE: Multiaxial CT images of the abdomen and pelvis were performed following the use of intravenous contrast. A dose lowering technique was utilized adhering to the principles of ALARA. COMPARISON STUDY: Abdomen and pelvis CT 03/15/2014. FINDINGS: The heart is mildly enlarged. There is a small right pleural effusion. Partially visualized low-density right pericardial lesion measuring 3.3 cm. This has slightly increased in size compared the prior study and favors a pericardial cyst. Mild interstitial thickening at the lung bases which is likely chronic. No pneumoperitoneum. No pneumatosis. There is a left total hip arthroplasty. No suspicious lytic or blastic osseous lesions. A few small diverticulum at the sec ond portion of the duodenum. No hepatic or splenic masses. The adrenal glands and pancreas are unremarkable. Moderate bilateral cortical renal thinning. There are few punctate bilateral renal calculi. No ureteral calculi. No hydronephrosis. The bladder is not well visualized due to the metallic artifact from the left hip prosthesis. No definite bladder wall thickening. There is mild inflammatory change surrounding the gallbladder. This could represent a developing acute cholecystitis. Trace ascites seen throughout the abdomen and pelvis. No retroperitoneal lymphadenopathy. Extensive calcified plaque within the normal caliber abdominal aorta. A right bladder diverticulum remains unchanged. Colonic diverticulosis. No evidence for acute diverticulitis. No definite bowel wall thickening or obstruction. Normal caliber appendix. IMPRESSION: 1. Inflammatory change surrounding the gallbladder. This could represent a developing acute cholecystitis. Surgical consultation advised. 2. No definite bowel wall thickening or obstruction. 3. Small right pleural effusion. 4. Bilateral nephrolithiasis. No ureteral stones. No hydronephrosis. 5. Normal appendix. 6. Colonic diverticulosis. No evidence for acute diverticulitis. 7. Trace ascites. XR chest 1V portable CLINICAL HISTORY: Atypical chest pain COMPARISON STUDY: 08/16/2010 FINDINGS: The heart is normal in size. There is no failure. There is no focal pulmonary consolidation. There is mild left hilar prominence, likely vascular.[Arthritic changes are present within the shoulders IMPRESSION: No active disease in the chest. Medications Administered Discontinued Medications Sodium Chloride (Nss 1000ml) 500 mls @ 999 mls/hr IV .Q31M ONE Stop: 08/04/20 07:58 Last Infusion: 08/04/20 08:20 Dose: 0 mls/hr Documented by: [id number] Admin: 08/04/20 07:49 Dose: 999 mls/hr Documented by: [id number] Piperacillin Sod/Tazobactam Sod (Zosyn) 4.5 gm in 120 mls @ 240 mls/hr IV NOW ONE Stop: 08/04/20 10:19 Last Infusion: 08/04/20 10:40 Dose: 0 mls/hr Documented by: [id number] Admin: 08/04/20 10:04 Dose: 240 mls/hr Documented by: [id number] Ioversol (Ioversol 100ml) 93 ml IV ONCE ONE Stop: 08/04/20 07:42 Last Admin: 08/04/20 07:41 Dose: 93 ml Documented by: [id number] Home Medications allopurinol 300 mg tablet 300 mg PO QAM tab 01/21/19 [History Confirmed 08/04/20] esomeprazole magnesium 40 mg capsule,delayed release 40 mg PO QAM cap 01/21/19 [History Confirmed 08/04/20] sildenafil 100 mg tablet 100 mg PO UD PRN tab 01/21/19 [History Confirmed 08/04/20] vit C 250 mg-vit E 90 mg-zinc 40 mg-copper 1 qf-bsywps-pdduod capsule 1 tab PO QAM cap 09/20/19 [History Confirmed 08/04/20] triamterene 37.5 mg-hydrochlorothiazide 25 mg tablet 1 tab PO DAILY #90 tab 06/13/20 [Rx Confirmed 08/04/20] amiodarone 200 mg tablet 200 mg PO BID #60 tab 07/26/20 [Rx Confirmed 08/04/20] apixaban 5 mg tablet 5 mg PO BID #60 tab 07/26/20 [Rx Confirmed 08/04/20] digoxin 125 mcg (0.125 mg) tablet 125 mcg PO Q2D #45 tab 08/02/20 [Rx Confirmed 08/04/20] atorvastatin 20 mg PO UD 08/04/20 [History Confirmed 08/04/20] Active Medications Heparin Sodium/Dextrose (Heparin Sodium/Dextrose) 25,000 units in 500 mls @ 27 mls/hr IV .[id number] [facility]; Protocol Stop: 09/03/20 10:44 Miscellaneous Information (Piperacill/Tazobac Consult Active) 1 ea N/A UD PRN PRN Reason: Consult Stop: 09/03/20 09:49 ECG Additional Comments: Atrial fibrillation Left axis deviation Incomplete right bundle branch block Inferior infarct , age undetermined Possible Anterior infarct , age undetermined Prolonged QT Code Status & VTE Plan Code Status CODE: FULL VTE: SCD's, Heparin drip, Apixaban to resume when appropriate, ambulation VTE Prophylaxis Plan VTE Prophylaxis will be ordered: Yes Supervising Physician Co-Signing Physician Notes Patient was seen and examined independently I discussed the case with Hoang SWAN I reviewed pertinent past medical social family history and also the plan of care and agree with the plan of care. Pt is pleasantly confused but only has mild diffuse abdominal pain. concern for cholecystitis and surgery is requesting a HIDA scan. hold apixaban(transitioned to heparin)on zosyn. pt has elevated troponin without chest pain or ecg changes, will trend and follow. HFpEF seems euvolemic Abd exam with without johnson sign or focal tenderness will follow surgery lead to consider surgery will treat with medical management Any exceptions will be noted below PG Care Time/CCT Total # of Minutes Spent Total Time Spent with Patient: Total time spent is greater than 50% in coordination of care (as documented) at patient's floor/unit and/or counseling patient: Coding Level of Care Code 93778 Initial Inpt Care Lvl 3 Diagnoses Abdominal pain R10.10 Abdominal location: upper abdomen, unspecified Acalculous cholecystitis K81.9 Elevated troponin R77.8 Heart failure with preserved ejection fraction I50.32 Heart failure chronicity: chronic Dyslipidemia E78.5 Chronic kidney disease, stage 3 N18.32 Chronic kidney disease stage 3 subtype: stage 3b (GFR 30-44) Bladder cancer C67.9 Bladder location: unspecified site Afib I48.21 Atrial fibrillation type: permanent Pleural effusion J90 (1) Bladder cancer Bladder location: unspecified site Qualified Code(s): C67.9 - Malignant neoplasm of bladder, unspecified (2) Chronic kidney disease, stage 3 Chronic kidney disease stage 3 subtype: stage 3b (GFR 30-44) Qualified Code(s): N18.32 - Chronic kidney disease, stage 3b (3) Heart failure with preserved ejection fraction Heart failure chronicity: chronic Qualified Code(s): I50.32 - Chronic diastolic (congestive) heart failure (4) Afib Atrial fibrillation type: permanent Qualified Code(s): I48.21 - Permanent atrial fibrillation (5) Abdominal pain Abdominal location: upper abdomen, unspecified Qualified Code(s): R10.10 - Upper abdominal pain, unspecified
[2020-08-04 10:59] LABS: INR 1.8 (0.9-1.1)
[2020-08-04] MEDS: HEPARIN SODIUM/DEXTROSE 25,000 UNITS/500 ML BAG IV SCH (12:22)
--- NOTE | 2020-08-04 13:02 | XCELERA ---
[id number]
--- NOTE | 2020-08-04 13:24 | Electrocardiogram Report ---
Test Reason : Blood Pressure : / mmHG Vent. Rate : 099 BPM Atrial Rate : 090 BPM P-R Int : 000 ms QRS Dur : 102 ms QT Int : 422 ms P-R-T Axes : 000 -69 027 degrees QTc Int : 541 ms Atrial fibrillation Left axis deviation Inferior infarct , age undetermined Prolonged QT Abnormal ECG When compared with ECG of 02-APR-2020 16:38, Atrial fibrillation has replaced Atrial flutter Left anterior fascicular block is no longer Present Incomplete right bundle branch block is now Present Inferior infarct is now Present Confirmed by Gary Mosquera ([id number]) on 08/04/2020 1:24:40 PM Referred By: REFERRED SELF Confirmed By:Gary Mosquera
[2020-08-04] MEDS ORDERED: ATORVASTATIN 20 MG TAB PO SCH ×2 (13:41)
[2020-08-04] MEDS ORDERED: ONDANSETRON INJ 2 MG/ML 2 ML VIAL IV PRN (13:41)
[2020-08-04] MEDS: D5W AND LACTATED RINGERS 1,000 ML IV SCH ×2 (13:55→23:56)
[2020-08-04] MEDS: MoRPHine SULFATE 2 MG/ML CARP IV PRN ×2 (15:33→23:32)
[2020-08-04 15:57] LABS: Partial Thromboplastin Ratio 5.1
[2020-08-04] MEDS: PIPERACILLIN/TAZOBACTAM 3.375 GM in DEXTROSE 5% 100 ML IV SCH ×2 (16:08→23:52)
[2020-08-04 16:39] LABS: Partial Thromboplastin Time 133.4 Seconds (21.0-31.0)
[2020-08-04] MEDS: AMIODARONE 200 MG TAB PO SCH (20:35)
[2020-08-05 01:24] LABS: Partial Thromboplastin Ratio > 5.3
[2020-08-05 01:33] LABS: Partial Thromboplastin Time > 139.0 Seconds (21.0-31.0)
[2020-08-05 03:21] LABS: Basophils # (auto) 0.02 K/uL (0-0.2); Basophils % (auto) 0.3 %; Eosinophils # (auto) 0.05 K/uL (0-0.5); Eosinophils % (auto) 0.8 %; Hematocrit (blood only) 38.3 % (42-52); Hemoglobin 13.3 g/dL (14.0-18.0); Immature Granulocytes # (auto) 0.02 K/uL (0.00-0.02); Immature Granulocytes % (auto) 0.3 %; Lymphocytes # (auto) 1.07 K/uL (1.2-3.4); Lymphocytes % (auto) 16.1 %; Mean Corpuscular Hemoglobin 34.7 pg (25-34); Mean Corpuscular Hgb Conc 34.7 g/dL (32-36); Mean Platelet Volume 11.1 fL (7.4-10.4); Monocytes # (auto) 0.42 K/uL (0.11-0.59); Monocytes % (auto) 6.3 %; Neutrophils # (auto) 5.08 K/uL (1.4-6.5); Neutrophils % (auto) 76.2 %; Platelet Count 119 K/uL (130-400); RDW Coefficient of Variation 16.3 % (11.5-14.5); RDW Standard Deviation 57.6 fL (36.4-46.3); Red Blood Count 3.83 M/uL (4.7-6.1); White Blood Count 6.66 K/uL (4.8-10.8)
[2020-08-05] MEDS: MoRPHine SULFATE 2 MG/ML CARP IV PRN ×3 (03:26→20:06)
[2020-08-05 03:37] LABS: Albumin Level 3.2 gm/dl (3.4-5.0); Calcium 8.6 mg/dl (8.5-10.1); Creatinine Clr Calc Pharmacy 33.2 ml/min; Est GFR (African American) 44.3; Est GFR (Non-African American) 38.2; Magnesium 1.8 mg/dl (1.8-2.4); Potassium 3.6 mmol/L (3.5-5.1)
[2020-08-05 03:40] LABS: Partial Thromboplastin Ratio 2.5
[2020-08-05 03:41] LABS: Bilirubin,Total 1.5 mg/dl (0.2-1); C Reactive Protein 0.53 mg/dl (0-0.29); Globulin 3.2 gm/dl (2.5-4.0); Total Protein 6.4 gm/dl (6.4-8.2)
[2020-08-05 03:42] LABS: Partial Thromboplastin Time 65.5 Seconds (21.0-31.0)
[2020-08-05] MEDS: PIPERACILLIN/TAZOBACTAM 3.375 GM in DEXTROSE 5% 100 ML IV SCH ×3 (06:38→23:40)
--- NOTE | 2020-08-05 07:22 | Surgery Progress Note ---
Date of Service August 05, 2020 Assessment & Plan (1) Acalculous cholecystitis: Patient likely with findings of acute cholecystitis HIDA scan is pending His troponin has been elevated he is to undergo cardiac evaluation Normally we would proceed with laparoscopic cholecystectomy however depending on his cardiac status And his progress regarding his gallbladder he may need cholecystostomy tube if it appears he is developing Necrotizing cholecystitis Appears to be stable at the present time Surgery will be postponed as needed Admission and Anticipated Discharge Date Admission Date: August 04, 2020 Subjective Patient resting comfortably Vital signs are stable Currently on IV heparin HIDA scan is pending Cardiac evaluation pending Review of Systems Review of Systems: All systems reviewed & are unremarkable except as noted in HPI & below Physical Exam Constitutional: well developed; no acute distress Eyes: + anicteric sclerae Respiratory: normal respiratory effort; no respiratory distress Cardiovascular: Rate/Rhythm: not tachycardic Gastrointestinal (Abdomen): Inspection/Auscultation: abdomen not distended Musculoskeletal: Head/Neck/Chest: head atraumatic Skin: no rashes, warm and dry Psychiatric: Orientation: cooperative Results & Data ([facility]) Vital Signs (Past 12 Hours) Vital Signs Temp Pulse Pulse Resp BP Pulse Ox 08/05/20 07:13 85 08/05/20 03:30 36.3 C L 83 20 103/73 92 08/05/20 01:19 87 08/04/20 23:15 36.3 C L 93 H 20 108/76 96 08/04/20 19:58 36.6 C 86 20 113/81 95 PG Care Time/CCT Total # of Minutes Spent Total Time Spent with Patient: Total time spent is greater than 50% in coordination of care (as documented) at patient's floor/unit and/or counseling patient: Coding Level of Care Code None Diagnoses Acalculous cholecystitis K81.9
[2020-08-05] MEDS ORDERED: PROPOFOL IV EMULSION 10 MG/ML 20 ML VIAL IV ONE (09:17)
[2020-08-05] MEDS ORDERED: ROCURONIUM BROMIDE 10 MG/ML 5 ML VIAL IV ONE (09:17)
[2020-08-05] MEDS ORDERED: LIDOCAINE HCL 2% 2 ML VIAL/AMP(20MG/ML) INFIL ONE (09:17)
[2020-08-05] MEDS ORDERED: fentaNYL citrate 100 MCG/2 ML VIAL ONE (09:18)
[2020-08-05] MEDS: D5W AND LACTATED RINGERS 1,000 ML IV SCH (10:00)
[2020-08-05] MEDS: DIGOXIN 0.125 MG TAB PO SCH (10:41)
[2020-08-05] MEDS: TRIAMTERENE/HCTZ 37.5/25MG TAB PO SCH (10:41)
[2020-08-05] MEDS: AMIODARONE 200 MG TAB PO SCH ×2 (10:41→20:09)
[2020-08-05] MEDS: PANTOprazole 40 MG TAB PO SCH (10:42)
--- NOTE | 2020-08-05 10:52 | Hospitalist Progress Note ---
Date of Service August 05, 2020 Assessment & Plan (1) Acalculous cholecystitis: 89-year-old male past medical history significant for heart failure with preserved ejection fraction, CKD stage III, hypertension, A. fib on Eliquis, BPH admitted for cholecystitis. Acalculous cholecystitis: -Presented with right upper quadrant pain, nausea, vomiting. -CTAP showed inflammatory findings consistent with acute cholecystitis. -HIDA scan performed, no evidence of common bile duct obstruction. -General surgery consulted and appreciate recommendations: Clear liquid diet for today and monitor for worsening of symptoms. May consider cholecystectomy if symptoms worsen. -We will continue Zosyn at this time. If continues to improve can likely transition to p.o. antibiotics. Atrial fibrillation: -At home is on digoxin, amiodarone, Eliquis. -Eliquis held in favor of heparin GTT given possibility of surgical intervention. -Continue digoxin and amiodarone. Per cardiology can titrate digoxin dosing for rate control. LASHAWN on CKD stage III: -Baseline creatinine around 1.2. -On admission with creatinine 1.7->1.59 with IV fluids. -We will discontinue IV fluids in favor of p.o. fluids given history of HFpEF. -Repeat BMP tomorrow AM. Elevated troponin: -History of, with baseline troponin 0.1. -This admission with troponin 0.2, no ACS findings. EKG and echocardiogram without findings suggestive of ACS. -Cardiology consulted given possible surgical intervention and appreciate recommendations; elevation in troponin likely supply demand mismatch from hypotension and mild tachycardia in ER, with baseline impairment in renal function. CODE STATUS: Full code FEN: Clear liquid diet, low-sodium. DVT prophylaxis: Heparin GTT Dispo: Med/Surg with telemetry for IV antibiotics, clear liquid diet, monitoring for worsening abdominal complaints. General surgery service also following. (2) Afib: (3) Elevated troponin: (4) Heart failure with preserved ejection fraction: (5) Chronic kidney disease, stage 3: (6) Hypertension: Admission and Anticipated Discharge Date Admission Date: August 04, 2020 Supervising Physician Co-Signing Physician Notes Patient seen and examined independently of PGY-2 Dr. Kevin. Agree with history, exam findings, assessment and plan of care as outlined with the following additions/updates: In brief, Mr. Rhodes is an 89 year old male with history of HFpEF, afib, chronically elevated troponin and CKD admitted with concerns for acute cholecystitis. Overall, feels better compared to admission after receiving morphine. No fevers, chills, nausea, vomiting. Still has some RUQ pain, but was able to tolerate clear liquids for a late lunch. Does wonder if it is his digoxin that causes his abdominal pain. Vital signs and nursing note reviewed. Non-toxic appearing. Irregularly irregular rate. Lungs are clear to auscultation. + bowel sounds. RUQ tenderness. No reboud or guarding. 1. [address] ch[address] with inflammation around the gallbladder but HIDA unremarkable. Discussed case with Dr. Farah (gen surg). If he has increased pain with dinner tonight, will plan for possible samson. Will make NPO at midnight just in case. Continue zosyn. 2. elevated troponin. No chest pain. demand vs decreased clearance in the setting of CKD. TTE without wall motion abnormalities. Appreciate cardiology recommendations. 3. afib. rate controlled. continue with home amio and dig. Holding home Eliquis in favor of heparin gtt in the event that surgical intervention is needed tomorrow. 4. HTN. continue home triamterene and HCTZ. 5. HFpEF. euvolemic. Dispo: pending resolution of abdominal pain Subjective Patient without acute events overnight. No complaints of fevers or chills, chest pain, SOB, nausea. No abdominal pain at rest, some pain with abdominal palpation. Review of Systems Review of Systems: All systems reviewed & are unremarkable except as noted in HPI & below Constitutional: no fever, no chills and no malaise Respiratory: no cough and no dyspnea Cardiovascular: no chest pain, no palpitations and no edema Gastrointestinal: + abdominal pain; no constipation and no diarrhea/loose stools Physical Exam Constitutional: WD/WN, vitals as above Respiratory: normal respiratory effort, lungs clear to auscultation Cardiovascular: Rate/Rhythm: + irregularly irregular Heart Sounds: + murmur Extremities: + edema Gastrointestinal (Abdomen): Inspection/Auscultation: normal bowel sounds; abdomen not distended Percussion/Palpation: + abdomen tender (Mild, diffuse) and abdomen soft Musculoskeletal: no cyanosis or clubbing, extremities motor strength 5/5 Skin: no rashes, warm and dry Psychiatric: A+Ox3, euthymic affect Results & Data Results & Data ([place]) Vital Signs (Past 12 Hours) Vital Signs Temp Pulse Pulse Resp BP Pulse Ox 08/05/20 08:03 36.3 C L 89 20 94/67 L 97 08/05/20 07:13 85 08/05/20 03:30 36.3 C L 83 20 103/73 92 08/05/20 01:19 87 08/04/20 23:15 36.3 C L 93 H 20 108/76 96 Resident Activity Tracking Resident Involvement: Resident Care Provided Care Provided: Adult [facility] Medicine (1) Chronic kidney disease, stage 3 Chronic kidney disease stage 3 subtype: stage 3b (GFR 30-44) Qualified Code(s): N18.32 - Chronic kidney disease, stage 3b (2) Heart failure with preserved ejection fraction Heart failure chronicity: chronic Qualified Code(s): I50.32 - Chronic diastolic (congestive) heart failure (3) Afib Atrial fibrillation type: permanent Qualified Code(s): I48.21 - Permanent atrial fibrillation
[2020-08-05 11:09] LABS: Partial Thromboplastin Ratio 1.4; Partial Thromboplastin Time 37.2 Seconds (21.0-31.0)
--- NOTE | 2020-08-05 13:09 | Nuclear Medicine Report ---
NM hepatobiliary CLINICAL HISTORY: 89 years-old Male with r/o obstructed duct. Acute right upper quadrant abdominal pa in TECHNIQUE: Sequential anterior abdominal images were obtained through 60 minutes following the intra venous administration of 5.2 mCi of technetium-99m Choletec. COMPARISON: CT abdomen and pelvis 08/04/2020 FINDINGS: Motion degraded exam. There is prompt, uniform accumulation of the tracer by the liver. There is nor mal filling of the intrahepatic ducts, common bile duct and normal excretion of the tracer into the d uodenum. The gallbladder fills normally. IMPRESSION: Normal hepatobiliary study. No scintigraphic evidence for acute cholecystitis or common bile duct obstruction. ACT 112: Negative or not required by law. The above report was generated using voice recognition software. It may contain grammatical, syntax o r spelling errors. Electronically signed by: Sandeep Beltran M.D. 08/05/2020 1:08 PM
--- NOTE | 2020-08-05 13:21 | Cardiology Consultation ---
Date of Consultation August 05, 2020 Assessment & Plan (1) Afib: -suspect is dysrhythmia is at least persistent if not permanent. -could increase his digoxin if needed for rate control. -Eliquis on hold in favor of intravenous heparin for upcoming surgery. (2) Elevated troponin: -mild elevation likely a supply demand mismatch and not coronary ischemia. 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 -did have elevated heart rate and low blood pressure while in the emergency room. (3) Hypertension: -adequate control currently. (4) Acalculous cholecystitis: -Dr. Farah favors surgery this afternoon. (5) Preoperative cardiovascular examination: -acceptable cardiac risk for urgent surgery. History of Present Illness Reason for Consultation: Mr. Rhodes is an 89-year-old male admitted yesterday with symptomatic acalculous cholecystitis which will require an operative procedure. This consultation was ordered to assist in his cardiac management at and as a preoperative evaluation. Of note, patient typically follows with Dr. Lofton in the outpatient setting. The patient was in his usual state of health until approximately 1 week prior to presentation. He was experiencing abdominal discomfort, nausea, and had a poor appetite. On the evening prior to presentation, the patient experienced fever and had several episodes of vomiting. He presented to the emergency room for further care and was diagnosed with acalculous cholecystitis. The patient was diagnosed with paroxysmal atrial fibrillation back in March. Numerous attempts have been made at rhythm control, however, rate control has been difficult of late. He was seen in the office by Dr. Lofton on August 02. The patient does not carry history of coronary artery disease. He has never experienced exertional angina pectoris. The case was discussed with Dr. Farah who plans to take the patient to surgery this afternoon. We did discuss his mildly elevated troponin I level. Past medical and surgical history 1. Hypertension 2. Mild LVH 3. Moderate mitral regurgitation 4. Chronic diastolic CHF 5. Hypercholesterolemia 6. GERD 7. Chronic renal failure 8. Nephrolithiasis 9. History of bladder carcinoma 10. Gout 11. History of GI bleeding 12. Diverticulosis 13. Colonic polyps Social history and lives with his No tobacco Drinks hard liquor Family history Noncontributory Review of systems A 10 review systems was negative except for that described above. Attending Physician: Siddharth Gutierrez DO Allergies Allergy/AdvReac Type Severity Reaction Status Date / Time No Known Allergies Allergy Unknown Verified 08/04/20 07:47 Home Medications Medication Instructions Recorded Confirmed Type allopurinol 300 mg tablet 300 mg PO QAM tab 01/21/19 08/04/20 History esomeprazole magnesium 40 mg 40 mg PO QAM cap 01/21/19 08/04/20 History capsule,delayed release sildenafil 100 mg tablet 100 mg PO UD PRN tab 01/21/19 08/04/20 History vit C 250 mg-vit E 90 mg-zinc 40 1 tab PO QAM cap 09/20/19 08/04/20 History mg-copper 1 [id number] capsule triamterene 37.5 1 tab PO DAILY #90 tab 06/13/20 08/04/20 Rx mg-hydrochlorothiazide 25 mg tablet amiodarone 200 mg tablet 200 mg PO BID #60 tab 07/26/20 08/04/20 Rx apixaban 5 mg tablet 5 mg PO BID #60 tab 07/26/20 08/04/20 Rx digoxin 125 mcg (0.125 mg) tablet 125 mcg PO Q2D #45 tab 08/02/20 08/04/20 Rx atorvastatin 20 mg PO UD 08/04/20 08/04/20 History Patient History Medical History (Updated 08/05/20 @ 13:17 by Gary Mosquera MD) Abnormal cystoscopy Actinic keratosis Atrial fibrillation with rapid ventricular response (03/2020) Bilateral nephrolithiasis (2005) Bladder cancer (2016) Chronic kidney disease, stage 3 Elevated troponin GI bleed Gout Hearing loss Hematuria (2018) History of basal cell carcinoma (2016) Hypercholesteremia Male erectile disorder of organic origin Vitamin D deficiency Surgical History H/O pyloroplasty H/O shoulder surgery S/P bladder tumor excision with fulguration (2016) S/P knee surgery Status post ORIF of fracture of ankle Family History Grandfather Cancer Social History Smoking Status: Former smoker Age Quit Using Tobacco: 32; Smoking End Date: 1962; Second Hand Exposure: No; Do You Dip or Chew Tobacco: No; Tobacco Cessation Education Requested by Patient: No Hx Alcohol Use: Yes Alcohol type: hard liquor Hx Substance Use: No Preferred Language: Nepali Communication Ability: Effective Material Control Specialist Required: No Beliefs That Will Affect Care: None marital status: Current Living Situation: Spouse Current Living Situation Comment: lives w/ current occupational status: retired Other Information That Helps Us Care for You: No Feels Safe at Home: Yes Safety Concerns: Feels Safe At This Time Assistive Devices: Glasses and Hearing Aid - Bilateral Physical Exam Physical Exam: In general is well well nourished male in no acute distress. HEENT exam is negative. Neck is supple with full carotid upstrokes. No carotid bruits. Jugular venous pressure is flat at 90. Cardiovascular exam reveals irregular irregular rhythm with a 2/6 basal systolic ejection murmur. No S3. Lungs are clear without rales, rhonchi or wheezes. Abdomen is soft with right upper quadrant tenderness. Extremities reveal 1+ pretibial edema bilaterally. Results & Data ([facility]) Vital Signs (Past 12 Hours) Vital Signs Temp Pulse Pulse Resp BP Pulse Ox 08/05/20 11:32 36.4 C L 78 20 104/79 95 08/05/20 08:03 36.3 C L 89 20 94/67 L 97 08/05/20 07:13 85 08/05/20 03:30 36.3 C L 83 20 103/73 92 08/05/20 01:19 87 Laboratory Results CBC notes hemoglobin 13.3, crit 38.3, white count 6.66, platelet count of 1190 00. Electrolytes note a sodium of 140, potassium 3.6, chloride 110, bicarb 24, BUN 46, creatinine 1.59, and glucose of 128. Initial troponin was 0.265 with follow-up values of 0.259, 0.250, and 0.241. Digoxin level is subtherapeutic at 0.1. Diagnostic Findings EKG notes atrial fibrillation with a left axis deviation and old inferior myocardial infarction pattern. QT interval is prolonged. Echocardiogram notes borderline LV dysfunction with ejection fraction of 45-50%. There were no wall motion abnormalities. There was mild LVH and evidence of moderate mitral and tricuspid regurgitation. This is unchanged from study done April 03, 2020. PG Care Time/CCT Total # of Minutes Spent Total Time Spent with Patient: Total time spent is greater than 50% in coordination of care (as documented) at patient's floor/unit and/or counseling patient: Coding Level of Care Code 03966 Initial Inpt Care Lvl 3 Diagnoses Afib I48.21 Atrial fibrillation type: permanent Elevated troponin R77.8 Hypertension I10 Acalculous cholecystitis K81.9 Preoperative cardiovascular examination Z01.810 (1) Afib Atrial fibrillation type: permanent Qualified Code(s): I48.21 - Permanent atrial fibrillation
[2020-08-05] MEDS: HEPARIN SODIUM/DEXTROSE 25,000 UNITS/500 ML BAG IV SCH (14:28)
[2020-08-05 20:50] LABS: Partial Thromboplastin Time 53.5 Seconds (21.0-31.0)
[2020-08-06] MEDS: MoRPHine SULFATE 2 MG/ML CARP IV PRN (02:30)
[2020-08-06] MEDS: HEPARIN SODIUM/DEXTROSE 25,000 UNITS/500 ML BAG IV SCH (05:52)
--- NOTE | 2020-08-06 05:52 | Surgery Progress Note ---
Date of Service August 06, 2020 Assessment & Plan (1) Abdominal pain: Patient continues to have upper abdominal pain requiring narcotics Even though his HIDA scan showed filling of the gallbladder, patients his age Can have significant disease in the gallbladder with distention and ischemia I feel that we should proceed with laparoscopic cholecystectomy today We will keep him n.p.o. and stop his heparin Admission and Anticipated Discharge Date Admission Date: August 04, 2020 Subjective Patient continues to have upper abdominal pain requiring morphine He was trying some clear liquids He is currently on IV heparin Physical Exam Constitutional: well developed; no acute distress Eyes: + anicteric sclerae Respiratory: normal respiratory effort; no respiratory distress Cardiovascular: Rate/Rhythm: regular rate Gastrointestinal (Abdomen): Inspection/Auscultation: abdomen not distended Musculoskeletal: Head/Neck/Chest: head atraumatic Skin: no rashes, warm and dry Neurologic: awake Psychiatric: Orientation: alert Results & Data ([facility]) Vital Signs (Past 12 Hours) Vital Signs Temp Pulse Pulse Resp BP Pulse Ox 08/06/20 03:03 36.8 C 95 H 20 113/78 93 08/05/20 23:44 36.6 C 48 L 20 132/67 92 08/05/20 22:20 92 H 08/05/20 19:43 36.8 C 72 20 108/76 93 PG Care Time/CCT Total # of Minutes Spent Total Time Spent with Patient: Total time spent is greater than 50% in coordination of care (as documented) at patient's floor/unit and/or counseling patient: Coding Level of Care Code 52508 Subseq Hosp Care Lvl 3 Diagnoses Abdominal pain R10.10 Abdominal location: upper abdomen, unspecified (1) Abdominal pain Abdominal location: upper abdomen, unspecified Qualified Code(s): R10.10 - Upper abdominal pain, unspecified
[2020-08-06 06:23] LABS: Basophils # (auto) 0.02 K/uL (0-0.2); Basophils % (auto) 0.3 %; Eosinophils % (auto) 1.5 %; Hematocrit (blood only) 38.7 % (42-52); Hemoglobin 13.6 g/dL (14.0-18.0); Immature Granulocytes # (auto) 0.02 K/uL (0.00-0.02); Immature Granulocytes % (auto) 0.3 %; Lymphocytes # (auto) 1.64 K/uL (1.2-3.4); Lymphocytes % (auto) 24.1 %; Mean Corpuscular Hemoglobin 34.9 pg (25-34); Mean Corpuscular Hgb Conc 35.1 g/dL (32-36); Mean Corpuscular Volume 99.2 fL (80-100); Mean Platelet Volume 11.9 fL (7.4-10.4); Monocytes # (auto) 0.56 K/uL (0.11-0.59); Monocytes % (auto) 8.2 %; Neutrophils # (auto) 4.47 K/uL (1.4-6.5); Neutrophils % (auto) 65.6 %; Platelet Count 123 K/uL (130-400); RDW Coefficient of Variation 16.3 % (11.5-14.5); RDW Standard Deviation 57.6 fL (36.4-46.3); White Blood Count 6.81 K/uL (4.8-10.8)
[2020-08-06 06:52] LABS: Partial Thromboplastin Ratio 2.3
[2020-08-06 06:54] LABS: Albumin Level 3.1 gm/dl (3.4-5.0); BUN Creatinine Ratio 25.1 (10-20); C Reactive Protein 0.72 mg/dl (0-0.29); Calcium 8.9 mg/dl (8.5-10.1); Creatinine Clr Calc Pharmacy 36.1 ml/min; Est GFR (African American) 49.1; Est GFR (Non-African American) 42.3; Magnesium 1.8 mg/dl (1.8-2.4); Potassium 3.4 mmol/L (3.5-5.1)
[2020-08-06 06:55] LABS: Partial Thromboplastin Time 61.2 Seconds (21.0-31.0)
[2020-08-06 06:57] LABS: Albumin Globulin Ratio 1.1 (0.9-2); Bilirubin,Total 1.6 mg/dl (0.2-1); Globulin 2.8 gm/dl (2.5-4.0); Total Protein 5.9 gm/dl (6.4-8.2)
[2020-08-06] MEDS: PIPERACILLIN/TAZOBACTAM 3.375 GM in DEXTROSE 5% 100 ML IV SCH ×2 (07:30→16:44)
[2020-08-06] MEDS: PANTOprazole 40 MG TAB PO SCH (07:30)
[2020-08-06] MEDS: AMIODARONE 200 MG TAB PO SCH ×2 (07:30→20:01)
[2020-08-06] MEDS: TRIAMTERENE/HCTZ 37.5/25MG TAB PO SCH (07:31)
--- NOTE | 2020-08-06 09:42 | Cardiology Progress Note ---
Date of Service August 06, 2020 Assessment & Plan (1) Atrial flutter: Patient is currently in Atrial Flutter with heart rates in the mid-90's. -- He is completely asymptomatic with this arrhythmia. -- Continue Amiodarone 200 mg b.i.d.. -- Continue Digoxin 125 mcg every 2 days. -- Eliquis is currently on hold due to upcoming surgery. -- Heparin drip for anticoagulation perioperatively. (2) Acalculous cholecystitis: -- Proceed with cholecystectomy later today with Dr. Farah. -- Continue IV Zosyn. (3) Hypertension: Blood pressure has been well controlled during this admission. -- Continue Triamterene-Hydrochlorothiazide 37.5-25 mg daily with appropriate hold parameters in place. -- Monitor renal function, electrolytes. (4) Dyslipidemia: Cholesterol is well controlled according to lipid panel 08/05/20. -- Total cholesterol 109 mg/dl. -- LDL 48 mg/dl. -- HDL 53 mg/dl. -- Continue Atorvastatin 20 daily. Admission and Anticipated Discharge Date Admission Date: August 04, 2020 Subjective Mr. Rhodes is an 89 year old male who was admitted with acalculous cholecystitis. He still feels "shitty and tired", still having abdominal pain at times requiring opiates for pain control. He denies any fevers, chills, or vomiting. He is going to have a cholecystectomy today. He denies any cardiac complaints. Review of Systems Review of Systems: All systems reviewed & are unremarkable except as noted in Subjective Physical Exam Physical Exam: GENERAL: Patient in no acute distress. HEENT: Head is atraumatic, normocephalic. EOM's intact. Facies symmetric. No perioral cyanosis. NECK: No JVD. JVP is at the level of the clavicle sitting upright. Carotid upstrokes are + 2 bilaterally. No bruits are noted. CHEST/LUNGS: Clear to auscultation throughout all lung adams. No wheezes, rales, or crackles. CVS: S1 and S2 are slightly irregular at 93 bpm with a grade 2-3/6 apical ho losystolic murmur. No obvious diastolic murmurs. No gallops or rubs. PMI is nondisplaced. No lifts, heaves, or thrills. No abdominal aortic or renal bruits. ABDOMINAL EXAM: Bowel sounds are present. EXTREMITIES: No clubbing or cyanosis. No edema. Intact radial pulses bilaterally. NEUROLOGIC EXAM: Patient is awake, alert, and oriented. Pleasant and cooperative. Answers questions appropriately. Speech is clear. TELEMETRY: -- Atrial flutter with rates in the mid 90's. Results & Data ([facility]) Vital Signs (Past 12 Hours) Vital Signs Temp Pulse Pulse Resp BP Pulse Ox 08/06/20 07:50 36.4 C L 90 18 115/83 96 08/06/20 03:03 36.8 C 95 H 20 113/78 93 08/05/20 23:44 36.6 C 48 L 20 132/67 92 08/05/20 22:20 92 H Laboratory Results Laboratory Results - last 24 hr 08/05/20 08/05/20 08/06/20 10:34 20:16 05:49 WBC RBC Hgb Hct MCV MCH MCHC RDW Std Deviation RDW Coeff of Osito Plt Count MPV Immature Gran % (Auto) Neut % (Auto) Lymph % (Auto) Caswell % (Auto) Eos % (Auto) Baso % (Auto) Neut # (Auto) Lymph # (Auto) Caswell # (Auto) Eos # (Auto) Baso # (Auto) Immature Gran # (Auto) APTT 37.2 H 53.5 H* 61.2 H* PTT Ratio 1.4 2.0 2.3 Sodium Potassium Chloride Carbon Dioxide Anion Gap BUN Creatinine Est Cr Clr Drug Dosing Est GFR ( Amer) Est GFR (Non-Af Amer) BUN/Creatinine Ratio Glucose Calcium Magnesium Total Bilirubin AST ALT Alkaline Phosphatase C-Reactive Protein Total Protein Albumin Globulin Albumin/Globulin Ratio 08/06/20 08/06/20 05:49 05:50 WBC 6.81 RBC 3.90 L Hgb 13.6 L Hct 38.7 L MCV 99.2 MCH 34.9 H MCHC 35.1 RDW Std Deviation 57.6 H RDW Coeff of Osito 16.3 H Plt Count 123 L MPV 11.9 H Immature Gran % (Auto) 0.3 Neut % (Auto) 65.6 Lymph % (Auto) 24.1 Caswell % (Auto) 8.2 Eos % (Auto) 1.5 Baso % (Auto) 0.3 Neut # (Auto) 4.47 Lymph # (Auto) 1.64 Caswell # (Auto) 0.56 Eos # (Auto) 0.10 Baso # (Auto) 0.02 Immature Gran # (Auto) 0.02 APTT PTT Ratio Sodium 140 Potassium 3.4 L Chloride 109 H Carbon Dioxide 22 Anion Gap 9.0 BUN 37 H Creatinine 1.46 H Est Cr Clr Drug Dosing 36.1 Est GFR ( Amer) 49.1 Est GFR (Non-Af Amer) 42.3 BUN/Creatinine Ratio 25.1 H Glucose 98 Calcium 8.9 Magnesium 1.8 Total Bilirubin 1.6 H AST 25 ALT 51 Alkaline Phosphatase 97 C-Reactive Protein 0.72 H Total Protein 5.9 L Albumin 3.1 L Globulin 2.8 Albumin/Globulin Ratio 1.[address] SCAN ABDOMEN/PELVIS: 1. Inflammatory change surrounding the gallbladder. This could represent a developing acute cholecystitis. Surgical consultation advised. 2. No definite bowel wall thickening or obstruction. 3. Small right pleural effusion. 4. Bilateral nephrolithiasis. No ureteral stones. No hydronephrosis. 5. Normal appendix. 6. Colonic diverticulosis. No evidence for acute diverticulitis. 7. Trace ascites. Medications Administered Amiodarone HCl (Amiodarone 200 Mg Tab) 200 mg PO BID [facility] Stop: 09/03/20 20:59 Last Admin: 08/06/20 07:30 Dose: 200 mg Documented by: [id number] Admin: 08/05/20 20:09 Dose: 200 mg Documented by: [id number] Admin: 08/05/20 10:41 Dose: Not Given Documented by: [id number] Admin: 08/04/20 20:35 Dose: 200 mg Documented by: [id number] Digoxin (Digoxin 0.125 Mg Tab) 0.125 mg PO Q2D [facility] Stop: 09/04/20 08:59 Last Admin: 08/05/20 10:41 Dose: Not Given Documented by: [id number] Piperacillin Sod/Tazobactam (Sod 3.375 gm/ Dextrose) 115 mls @ 28.75 mls/hr IV Q8H [facility]; Protocol Stop: 08/14/20 14:59 Last Admin: 08/06/20 07:30 Dose: 28.8 mls/hr Documented by: [id number] Infusion: 08/06/20 05:16 Dose: 0 mls/hr Documented by: [id number] Admin: 08/05/20 23:40 Dose: 28.8 mls/hr Documented by: [id number] Infusion: 08/05/20 20:08 Dose: 0 mls/hr Documented by: [id number] Admin: 08/05/20 16:01 Dose: 28.8 mls/hr Documented by: [id number] Infusion: 08/05/20 10:38 Dose: 0 mls/hr Documented by: [id number] Admin: 08/05/20 06:38 Dose: 28.8 mls/hr Documented by: [id number] Infusion: 08/05/20 04:22 Dose: 0 mls/hr Documented by: [id number] Admin: 08/04/20 23:52 Dose: 28.8 mls/hr Documented by: [id number] Infusion: 08/04/20 20:13 Dose: 0 mls/hr Documented by: [id number] Admin: 08/04/20 16:08 Dose: 28.8 mls/hr Documented by: [id number] Morphine Sulfate (Morphine Sulfate 2 Mg/Ml Carp) 2 mg IV Q2H PRN PRN Reason: Chest Pain Stop: 08/18/20 13:40 Last Admin: 08/06/20 02:30 Dose: 2 mg Documented by: [id number] Admin: 08/05/20 20:06 Dose: 2 mg Documented by: [id number] Admin: 08/05/20 12:56 Dose: 2 mg Documented by: [id number] Admin: 08/05/20 03:26 Dose: 2 mg Documented by: [id number] Admin: 08/04/20 23:32 Dose: 2 mg Documented by: [id number] Admin: 08/04/20 15:33 Dose: 2 mg Documented by: [id number] Pantoprazole Sodium (Pantoprazole 40 Mg Tab) 40 mg PO QAM MEJIA; Protocol Stop: 09/04/20 08:59 Last Admin: 08/06/20 07:30 Dose: 40 mg Documented by: [id number] Admin: 08/05/20 10:42 Dose: Not Given Documented by: [id number] Triamterene/Hydrochlorothiazide (Triamterene/Hctz 37.5/25mg Tab) 1 tab PO DAILY MEJIA Stop: 09/04/20 08:59 Last Admin: 08/06/20 07:31 Dose: 1 tab Documented by: [id number] Admin: 08/05/20 10:41 Dose: Not Given Documented by: [id number] Discontinued Medications Heparin Sodium/Dextrose (Heparin Iv Standard *No* Bolus) 1 ea N/A ONE ONE; Protocol Stop: 08/04/20 10:39 Last Admin: 08/04/20 12:21 Dose: 1 ea Documented by: [id number] Sodium Chloride (Nss 1000ml) 500 mls @ 999 mls/hr IV .Q31M ONE Stop: 08/04/20 07:58 Last Infusion: 08/04/20 08:20 Dose: 0 mls/hr Documented by: [id number] Admin: 08/04/20 07:49 Dose: 999 mls/hr Documented by: [id number] Piperacillin Sod/Tazobactam Sod (Zosyn) 4.5 gm in 120 mls @ 240 mls/hr IV NOW ONE Stop: 08/04/20 10:19 Last Infusion: 08/04/20 10:40 Dose: 0 mls/hr Documented by: [id number] Admin: 08/04/20 10:04 Dose: 240 mls/hr Documented by: [id number] Heparin Sodium/Dextrose (Heparin Sodium/Dextrose) 25,000 units in 500 mls @ 14 mls/hr IV .Q24H MEJIA; Protocol Stop: 09/03/20 10:44 Last Admin: 08/06/20 05:52 Dose: Not Given Documented by: [id number] Titration: 08/06/20 05:50 Dose: 0 units/hr, 0 mls/hr Documented by: [id number] Cosigned by: [id number] Titration: 08/05/20 23:02 Dose: 700 units/hr, 14 mls/hr Documented by: [id number] Cosigned by: [id number] Titration: 08/05/20 15:09 Dose: 700 units/hr, 14 mls/hr Documented by: [id number] Cosigned by: [id number] Admin: 08/05/20 14:28 Dose: 700 units/hr, 14 mls/hr Documented by: [id number] Cosigned by: [id number] Titration: 08/05/20 09:09 Dose: 0 units/hr, 0 mls/hr Documented by: [id number] Cosigned by: [id number] Titration: 08/05/20 06:53 Dose: 700 units/hr, 14 mls/hr Documented by: [id number] Cosigned by: [id number] Titration: 08/05/20 04:17 Dose: 700 units/hr, 14 mls/hr Documented by: [id number] Cosigned by: [id number] Titration: 08/05/20 01:44 Dose: 0 units/hr, 0 mls/hr Documented by: [id number] Cosigned by: [id number] Titration: 08/04/20 23:07 Dose: 1,050 units/hr, 21 mls/hr Documented by: [id number] Cosigned by: [id number] Titration: 08/04/20 18:02 Dose: 1,050 units/hr, 21 mls/hr Documented by: [id number] Cosigned by: [id number] Titration: 08/04/20 16:44 Dose: 0 units/hr, 0 mls/hr Documented by: [id number] Cosigned by: [id number] Admin: 08/04/20 12:22 Dose: 1,350 units/hr, 27 mls/hr Documented by: [id number] Cosigned by: [id number] Dextrose/Lactated Ringer's (D5w And Lactated Ringers) 1,000 mls @ 100 mls/hr IV .Q10H MEJIA Stop: 09/03/20 13:08 Last Infusion: 08/05/20 19:31 Dose: 0 mls/hr Documented by: [id number] Admin: 08/05/20 10:00 Dose: 100 mls/hr Documented by: [id number] Infusion: 08/05/20 09:56 Dose: 0 mls/hr Documented by: [id number] Admin: 08/04/20 23:56 Dose: 100 mls/hr Documented by: [id number] Infusion: 08/04/20 23:55 Dose: 100 mls/hr Documented by: [id number] Admin: 08/04/20 13:55 Dose: 100 mls/hr Documented by: [id number] Ioversol (Ioversol 100ml) 93 ml IV ONCE ONE Stop: 08/04/20 07:42 Last Admin: 08/04/20 07:41 Dose: 93 ml Documented by: [id number] PG Care Time/CCT Total # of Minutes Spent Total Time Spent with Patient: Total time spent is greater than 50% in coordination of care (as documented) at patient's floor/unit and/or counseling patient:20 Coding Level of Care Code 04147 Subseq Hosp Care Lvl 3 Diagnoses Atrial flutter I48.92 Acalculous cholecystitis K81.9 Hypertension I10 Dyslipidemia E78.5
--- NOTE | 2020-08-06 10:05 | Hospitalist Progress Note ---
Date of Service August 06, 2020 Assessment & Plan (1) Acalculous cholecystitis: Alonso Rhodes is a 89y/o M with PMH significant for heart failure with preserved ejection fraction, CKD stage III, hypertension, A. fib on Eliquis, BPH; admitted for cholecystitis. Acalculous cholecystitis: -POD #0 from laprascopic cholecystectomy -CTAP showed inflammatory findings consistent with acute cholecystitis. -HIDA scan performed, no evidence of common bile duct obstruction -AST/ALT/Alk phos stable and downtrending -Clear liquids this afternoon and advance diet as tolerated -continue Zosyn at this time Atrial fibrillation: -At home is on digoxin, amiodarone, Eliquis. -Eliquis held in favor of heparin GTT given possibility of surgical intervention. -Continue digoxin and amiodarone. Per cardiology can titrate digoxin dosing for rate control. Acute Kidney Injury in the setting of CKD stage III: -Baseline creatinine around 1.2 -On admission with creatinine 1.7 subsequent downtrend to 1.46 Elevated troponin: -History of, with baseline troponin 0.1. -This admission with troponin 0.2, no ACS findings. EKG and echocardiogram without findings suggestive of ACS. -Cardiology consulted: elevation in troponin likely supply demand mismatch from hypotension and mild tachycardia in ER, with baseline impairment in renal function (2) Afib: (3) Elevated troponin: (4) Heart failure with preserved ejection fraction: (5) Chronic kidney disease, stage 3: (6) Hypertension: Admission and Anticipated Discharge Date Admission Date: August 04, 2020 Supervising Physician Co-Signing Physician Notes I personally examined the patient and verified all bradshaw points of history and exam, discussed case, and agree with decision making with Dr Juarez. Seen postop, still fairly sedated after anesthesia. Nursing notes no new problems. Vitals noted, in general he is sedated but appears in no distress. He does have snoring with a few brief apneas where he desaturates a little, whenever I raise his nasal cannula to 4 L he does not desaturate below about 91-92. HEENT normocephalic atraumatic mucous membranes moist. Breathing unlabored no accessory muscle use good effort. Skin shows no rashes no pallor or icterus. No asymmetry to suggest a focal neuro deficit at rest. 1. Acalculous cholecystitis. Now postop from cholecystectomypostop care guided by surgery. Appears stable at this time 2. elevated troponin. No chest pain. demand vs decreased clearance in the setting of CKD. TTE without wall motion abnormalities. 3. afib. Rate controlled, anticoagulation held for surgery, can resume hopefully tomorrow or the next day depending on how he is doing clinically. 4. HTN. Blood pressure reasonable overall 5. HFpEF. euvolemic. 6. Appearance of sleep apneathis is only immediately post surgical, once he is more awake and alert we can ask for any symptoms of daytime fatigue etc., could consider pursuing an outpatient sleep study, but given that he is just under anesthesia, it is likely overall situational 7. DVT prophylaxiswill resume anticoagulation in the near future Otherwise as above Subjective Patient continuing to do well this morning, was informed by surgery early this morning that he would be able to go to surgery later today to remove his gallbladder. Still not having much abdominal pain unless it is pressed hard. Not having any nausea/vomiting; was tolerating oral intake last night without complication. Review of Systems Review of Systems: All systems reviewed & are unremarkable except as noted in Subjective Physical Exam Constitutional: WD/WN, vitals as above Eyes: PERRL, conjunctivae normal, anicteric sclerae Respiratory: normal respiratory effort, lungs clear to auscultation Cardiovascular: Rate/Rhythm: regular rate and regular rhythm Heart Sounds: no gallop, no murmur and no cardiac rub Vessels: normal peripheral pulses Gastrointestinal (Abdomen): Inspection/Auscultation: abdomen normal to inspection and normal bowel sounds Percussion/Palpation: + abdomen tender (RUQ) and abdomen soft; no guarding and abdomen not rigid Skin: no rashes, warm and dry Neurologic: PERRL, EOMI, accommodation nl, no face palsy, no dysarthria Psychiatric: Orientation: alert and oriented x 3 Results & Data Results & Data ([facility]) Vital Signs (Past 12 Hours) Vital Signs Temp Pulse Pulse Resp BP Pulse Ox 08/06/20 07:50 36.4 C L 90 18 115/83 96 08/06/20 03:03 36.8 C 95 H 20 113/78 93 08/05/20 23:44 36.6 C 48 L 20 132/67 92 08/05/20 22:20 92 H Laboratory Results 08/06/20 08/06/2021 Range/Units 05:50 05:49 05:49 WBC 6.81 (4.8-10.8) K/uL RBC 3.90 L (4.7-6.1) M/uL Hgb 13.6 L (14.0-18.0) g/dL Hct 38.7 L (42-52) % MCV 99.2 (80-100) fL MCH 34.9 H (25-34) pg MCHC 35.1 (32-36) g/dL RDW Std Deviation 57.6 H (36.4-46.3) fL RDW Coeff of Osito 16.3 H (11.5-14.5) % Plt Count 123 L (130-400) K/uL MPV 11.9 H (7.4-10.4) fL Immature Gran % (Auto) 0.3 % Neut % (Auto) 65.6 % Lymph % (Auto) 24.1 % Burke % (Auto) 8.2 % Eos % (Auto) 1.5 % Baso % (Auto) 0.3 % Neut # (Auto) 4.47 (1.4-6.5) K/uL Lymph # (Auto) 1.64 (1.2-3.4) K/uL Burke # (Auto) 0.56 (0.11-0.59) K/uL Eos # (Auto) 0.10 (0-0.5) K/uL Baso # (Auto) 0.02 (0-0.2) K/uL Immature Gran # (Auto) 0.02 (0.00-0.02) K/uL APTT 61.2 H* (21.0-31.0) Seconds PTT Ratio 2.3 Sodium 140 (136-145) mmol/L Potassium 3.4 L (3.5-5.1) mmol/L Chloride 109 H (98-107) mmol/L Carbon Dioxide 22 (21-32) mmol/L Anion Gap 9.0 (3-11) BUN 37 H (7-18) mg/dl Creatinine 1.46 H (0.6-1.4) mg/dl Est Cr Clr Drug Dosing 36.1 ml/min Est GFR ( Amer) 49.1 Est GFR (Non-Af Amer) 42.3 BUN/Creatinine Ratio 25.1 H (10-20) Glucose 98 (70-99) mg/dl Calcium 8.9 (8.5-10.1) mg/dl Magnesium 1.8 (1.8-2.4) mg/dl Total Bilirubin 1.6 H (0.2-1) mg/dl AST 25 (15-37) U/L ALT 51 (12-78) U/L Alkaline Phosphatase 97 (45-117) U/L C-Reactive Protein 0.72 H (0-0.29) mg/dl Total Protein 5.9 L (6.4-8.2) gm/dl Albumin 3.1 L (3.4-5.0) gm/dl Globulin 2.8 (2.5-4.0) gm/dl Albumin/Globulin Ratio 1.1 (0.9-2) // Range/Units 20:16 WBC (4.8-10.8) K/uL RBC (4.7-6.1) M/uL Hgb (14.0-18.0) g/dL Hct (42-52) % MCV (80-100) fL MCH (25-34) pg MCHC (32-36) g/dL RDW Std Deviation (36.4-46.3) fL RDW Coeff of Osito (11.5-14.5) % Plt Count (130-400) K/uL MPV (7.4-10.4) fL Immature Gran % (Auto) % Neut % (Auto) % Lymph % (Auto) % Burke % (Auto) % Eos % (Auto) % Baso % (Auto) % Neut # (Auto) (1.4-6.5) K/uL Lymph # (Auto) (1.2-3.4) K/uL Burke # (Auto) (0.11-0.59) K/uL Eos # (Auto) (0-0.5) K/uL Baso # (Auto) (0-0.2) K/uL Immature Gran # (Auto) (0.00-0.02) K/uL APTT 53.5 H* (21.0-31.0) Seconds PTT Ratio 2.0 Sodium (136-145) mmol/L Potassium (3.5-5.1) mmol/L Chloride (98-107) mmol/L Carbon Dioxide (21-32) mmol/L Anion Gap (3-11) BUN (7-18) mg/dl Creatinine (0.6-1.4) mg/dl Est Cr Clr Drug Dosing ml/min Est GFR ( Amer) Est GFR (Non-Af Amer) BUN/Creatinine Ratio (10-20) Glucose (70-99) mg/dl Calcium (8.5-10.1) mg/dl Magnesium (1.8-2.4) mg/dl Total Bilirubin (0.2-1) mg/dl AST (15-37) U/L ALT (12-78) U/L Alkaline Phosphatase (45-117) U/L C-Reactive Protein (0-0.29) mg/dl Total Protein (6.4-8.2) gm/dl Albumin (3.4-5.0) gm/dl Globulin (2.5-4.0) gm/dl Albumin/Globulin Ratio (0.9-2) Medications Administered Current Inpatient Medications Amiodarone HCl (Amiodarone 200 Mg Tab) 200 mg PO BID [facility] Stop: 09/03/20 20:59 Last Admin: 08/06/20 07:30 Dose: 200 mg Documented by: Atropine Sulfate (Atropine Sulfate 0.1 Mg/Ml 10ml Syr) 0.5 mg IV Q1M PRN PRN Reason: PACU Use-HR<40 &/or Bradycardi Stop: 08/06/20 19:45 Digoxin (Digoxin 0.125 Mg Tab) 0.125 mg PO Q2D MEJIA Stop: 09/04/20 08:59 Last Admin: 08/05/20 10:41 Dose: Not Given Documented by: Ephedrine Sulfate (Ephedrine Sulfate 50 Mg/Ml Amp) 5 mg IV Q5M PRN PRN Reason: PACU Use Only-SBP<90 mmHg Stop: 08/06/20 19:45 Fentanyl Citrate (Fentanyl Citrate 100 Mcg/2 Ml Vial) 25 mcg IV Q5M PRN PRN Reason: PACU Use Only-Pain Stop: 08/06/20 19:45 Hydromorphone HCl (Hydromorphone Inj 1 Mg/Ml Syringe) 0.25 mg IV Q5M PRN PRN Reason: PACU Use Only-Pain Stop: 08/06/20 19:45 Piperacillin Sod/Tazobactam (Sod 3.375 gm/ Dextrose) 115 mls @ 28.75 mls/hr IV Q8H MEJIA; Protocol Stop: 08/14/20 14:59 Last Infusion: 08/06/20 11:02 Dose: 0 mls/hr Documented by: Miscellaneous Information (Piperacill/Tazobac Consult Active) 1 ea N/A UD PRN PRN Reason: Consult Stop: 09/03/20 13:40 Morphine Sulfate (Morphine Sulfate 2 Mg/Ml Carp) 2 mg IV Q2H PRN PRN Reason: Chest Pain Stop: 08/18/20 13:40 Last Admin: 08/06/20 02:30 Dose: 2 mg Documented by: Ondansetron HCl (Ondansetron Inj 2 Mg/Ml 2 Ml Vial) 4 mg IV Q6H PRN PRN Reason: Nausea Stop: 09/03/20 13:40 Ondansetron HCl (Ondansetron Inj 2 Mg/Ml 2 Ml Vial) 4 mg IV ONCE PRN PRN Reason: PACU Use Only-Nausea/Vomiting Stop: 08/06/20 19:45 Pantoprazole Sodium (Pantoprazole 40 Mg Tab) 40 mg PO QAM MEJIA; Protocol Stop: 09/04/20 08:59 Last Admin: 08/06/20 07:30 Dose: 40 mg Documented by: Triamterene/Hydrochlorothiazide (Triamterene/Hctz 37.5/25mg Tab) 1 tab PO DAILY MEJIA Stop: 09/04/20 08:59 Last Admin: 08/06/20 07:31 Dose: 1 tab Documented by: Resident Activity Tracking Resident Involvement: Resident Care Provided Care Provided: Adult Hospital Medicine (1) Chronic kidney disease, stage 3 Chronic kidney disease stage 3 subtype: stage 3b (GFR 30-44) Qualified Code(s): N18.32 - Chronic kidney disease, stage 3b (2) Heart failure with preserved ejection fraction Heart failure chronicity: chronic Qualified Code(s): I50.32 - Chronic diastolic (congestive) heart failure (3) Afib Atrial fibrillation type: permanent Qualified Code(s): I48.21 - Permanent atrial fibrillation
[2020-08-06] MEDS ORDERED: fentaNYL citrate 100 MCG/2 ML VIAL ONE (10:53)
[2020-08-06] MEDS ORDERED: ONDANSETRON INJ 2 MG/ML 2 ML VIAL ONE (10:53)
[2020-08-06] MEDS ORDERED: LIDOCAINE HCL 2% 2 ML VIAL/AMP(20MG/ML) INFIL ONE (10:53)
[2020-08-06] MEDS ORDERED: DEXAMETHASONE SOD INJ 4 MG/ML VIAL ONE (10:53)
[2020-08-06] MEDS ORDERED: NEOSTIGMINE METHYLSULFATE 5 MG/5 ML SYR ONE (10:53)
[2020-08-06] MEDS ORDERED: GLYCOPYRROLATE 0.2 MG/ML VIAL ONE (10:53)
[2020-08-06] MEDS ORDERED: ROCURONIUM BROMIDE 10 MG/ML 5 ML VIAL IV ONE (10:53)
[2020-08-06] MEDS ORDERED: PROPOFOL IV EMULSION 10 MG/ML 20 ML VIAL IV ONE (10:53)
--- NOTE | 2020-08-06 11:11 | History & Physical Bridge Note ---
Date of Service August 06, 2020 History & Physical Bridge Note I have examined the patient, reviewed the History & Physical and in the interval since the performance of the History & Physical I have noted the following changes of clinical significance: no changes noted Explained to the patient that Dr. Farah asked me to do case due to scheduling issues . 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
--- NOTE | 2020-08-06 11:31 | Anesthesiology Consultation ---
Date of Service August 06, 2020 Assessment & Plan (1) Encounter for pre-operative examination: Chart Review Chart Review: Acceptable Risk for Surgery and Patient NOT seen in Pre Admission Testing covid neg 08/04/2020. Consults Requested none History Surgery Operation Date: 08/05/20 12:00 Proposed Procedures p Laparoscopic Cholecystectomy, No Cholangiogram - Sid Farah MD, FACS Operation Date: 08/06/20 11:00 Proposed Procedures p Laparoscopic Cholecystectomy - Sid Farah MD, FACS Height/Weight Height: 5 ft 10 in Weight: 74.6 kg Allergies Allergy/AdvReac Type Severity Reaction Status Date / Time No Known Allergies Allergy Unknown Verified 08/04/20 07:47 Medications Home Medications Medication Instructions Recorded Confirmed Last Taken allopurinol 300 mg tablet 300 mg PO QAM tab 01/21/19 08/04/20 08/03/20 esomeprazole magnesium 40 mg 40 mg PO QAM cap 01/21/19 08/04/20 08/03/20 capsule,delayed release sildenafil 100 mg tablet 100 mg PO UD PRN tab 01/21/19 08/04/20 Unknown vit C 250 mg-vit E 90 mg-zinc 40 1 tab PO QAM cap 09/20/19 08/04/20 08/03/20 mg-copper 1 [id number] capsule triamterene 37.5 1 tab PO DAILY #90 tab 06/13/20 08/04/20 08/03/20 mg-hydrochlorothiazide 25 mg tablet amiodarone 200 mg tablet 200 mg PO BID #60 tab 07/26/20 08/04/20 08/03/20 apixaban 5 mg tablet 5 mg PO BID #60 tab 07/26/20 08/04/20 08/03/20 digoxin 125 mcg (0.125 mg) tablet 125 mcg PO Q2D #45 tab 08/02/20 08/04/20 08/03/20 atorvastatin 20 mg PO UD 08/04/20 08/04/20 08/03/20 Active Medications Generic Name Dose Route Start Last Admin Trade Name Freq PRN Reason Stop Dose Admin Amiodarone HCl 200 mg 08/04/20 21:00 08/06/20 07:30 Amiodarone 200 Mg Tab PO 09/03/20 20:59 200 mg BID MEJIA Administration Digoxin 0.125 mg 08/05/20 09:00 08/05/20 10:41 Digoxin 0.125 Mg Tab PO 09/04/20 08:59 Not Given Q2D MEJIA Piperacillin Sod/Tazobactam 115 mls @ 28.75 mls/hr 08/04/20 15:00 08/06/20 11:02 Sod 3.375 gm/ Dextrose IV 08/14/20 14:59 0 mls/hr Q8H MEJIA Infusion Protocol Morphine Sulfate 2 mg 08/04/20 13:41 08/06/20 02:30 Morphine Sulfate 2 Mg/Ml Carp IV 08/18/20 13:40 2 mg Q2H PRN Administration Chest Pain Pantoprazole Sodium 40 mg 08/05/20 09:00 08/06/20 07:30 Pantoprazole 40 Mg Tab PO 09/04/20 08:59 40 mg QAM MEJIA Administration Protocol Triamterene/Hydrochlorothiazide 1 tab 08/05/20 09:00 08/06/20 07:31 Triamterene/Hctz 37.5/25mg Tab PO 09/04/20 08:59 1 tab DAILY MEJIA Administration NPO Date Last Intake of Fluids: 08/06/20 Time Last Intake of Fluids: 03:00 Last Intake of Fluids Comment: sips this morning Date Last Intake of Solids: 08/04/20 Past Medical History Medical History (Updated 08/06/20 @ 11:30 by Donnie Appiah MD) Abnormal cystoscopy Actinic keratosis Atrial fibrillation with rapid ventricular response (03/2020) Bilateral nephrolithiasis (2005) Bladder cancer (2016) Chronic kidney disease, stage 3 Elevated troponin Per cardiology note 08/05/20: (2) Elevated troponin: -mild elevation likely a supply demand mismatch and not coronary ischemia. 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 -did have elevated heart rate and low blood pressure while in the emergency room. GI bleed Gout Hearing loss Hematuria (2019) History of basal cell carcinoma (2017) Hypercholesteremia Male erectile disorder of organic origin Vitamin D deficiency Per cardiology note 08/04/2020: (1) Atrial flutter: Patient is currently in Atrial Flutter with heart rates in the mid-90's. -- He is completely asymptomatic with this arrhythmia. -- Continue Amiodarone 200 mg b.i.d.. -- Continue Digoxin 125 mcg every 2 days. -- Eliquis is currently on hold due to upcoming surgery. -- Heparin drip for anticoagulation perioperatively. Past Family History Family History Grandfather Cancer Past Surgical History Surgical History H/O pyloroplasty H/O shoulder surgery S/P bladder tumor excision with fulguration (2017) S/P knee surgery Status post ORIF of fracture of ankle Social History Smoking Status: Former smoker tobacco type: cigars Do You Dip or Chew Tobacco: No Smoking End Date: 1960 Hx Alcohol Use: Yes Alcohol type: hard liquor alcohol intake frequency: a few times a month Hx Substance Use: No substance use type: does not use Physical Exam Vital Signs Last Vital Signs Temp 36.5 C 08/06/20 11:10 Pulse 96 H 08/06/20 11:10 Resp 20 08/06/20 11:10 BP 103/88 08/06/20 11:10 Pulse Ox 95 08/06/20 11:10 Testing Laboratory Results 08/06/20 05:50 08/06/20 05:49 PT 17.0 Seconds (9.0-12.0) H 08/04/20 10:44 INR 1.8 (0.9-1.1) H 08/04/20 10:44 APTT 61.2 Seconds (21.0-31.0) H* 08/06/20 05:49 Urine Color Dark Yellow 08/04/20 07:35 Urine Appearance Cloudy (Clear) A 08/04/20 07:35 Urine pH 5.0 (4.5-7.5) 08/04/20 07:35 Ur Specific [place] 1.024 (1.000-1.030) 08/04/20 07:35 Urine Protein 2+ (Negative) H 08/04/20 07:35 Urine Glucose (UA) Negative (Negative) 08/04/20 07:35 Urine Ketones Trace (Negative) H 08/04/20 07:35 Urine Nitrite Negative (Negative) 08/04/20 07:35 Ur Leukocyte Esterase Negative (Negative) 08/04/20 07:35 Urine WBC (Auto) 1-5 /hpf (0-5) 08/04/20 07:35 Urine RBC (Auto) 0-4 /hpf (0-4) 08/04/20 07:35 U Hyaline Cast (Auto) 1-5 /lpf (0-5) 08/04/20 07:35 U Epithel Cells (Auto) 20-30 /lpf (0-5) H 08/04/20 07:35 Urine Bacteria (Auto) Negative (Negative) 08/04/20 07:35 Laboratory Tests 08/04/20 08/04/20 08/05/20 07:35 18:53 00:23 Troponin I 0.265 H* 0.250 H* 0.241 H* Electrocardiogram Date: 08/04/20 DICTATED BY: Gary Mosquera MD Test Reason : Blood Pressure : / mmHG Vent. Rate : 099 BPM Atrial Rate : 090 BPM P-R Int : 000 ms QRS Dur : 102 ms QT Int : 422 ms P-R-T Axes : 000 -69 027 degrees QTc Int : 541 ms Atrial fibrillation Left axis deviation Inferior infarct , age undetermined Prolonged QT Abnormal ECG When compared with ECG of 02-APR-2020 16:38, Atrial fibrillation has replaced Atrial flutter Left anterior fascicular block is no longer Present Incomplete right bundle branch block is now Present Inferior infarct is now Present Confirmed by Gary Mosquera ([id number]) on 08/04/2020 1:24:40 PM Chest X-Ray Date: 08/04/20 Echocardiogram Date: 08/04/20 LV systolic function is borderline reduced. No regional wall motion abnormalities noted. There is mild concentric left ventricular hypertrophy. EF 45-50% There is moderate mitral regurg. There is moderate tricuspid regurg. Compared with study dated 04/03/2020, no significant change.
[2020-08-06] MEDS ORDERED: ePHEDrine sulfate 50 MG/ML AMP IV PRN (11:45)
[2020-08-06] MEDS ORDERED: ATROPINE SULFATE 0.1 MG/ML 10ML SYR IV PRN (11:45)
[2020-08-06] MEDS ORDERED: ONDANSETRON INJ 2 MG/ML 2 ML VIAL IV PRN (11:45)
[2020-08-06] MEDS ORDERED: LIDOCAINE/EPINEPHRINE 1% 20 ML VIAL ONE (12:04)
[2020-08-06] MEDS ORDERED: SUGAMMADEX SODIUM 200 MG/2 ML VIAL IV ONE (12:07)
[2020-08-06] MEDS ORDERED: PHENYLEPHRINE HCL 10 MG/ML VIAL ONE (13:22)
[2020-08-06] MEDS ORDERED: PHENYLEPHRINE 100MCG/ML 5ML SYR ONE (13:22)
[2020-08-06] MEDS ORDERED: OPTIRAY 300 INJ ONE (13:46)
[2020-08-06] MEDS ORDERED: SURGICEL ABSORB HEMOSTAT 2IN X 14IN TOP ONE (13:54)
--- NOTE | 2020-08-06 14:00 | Post Operative Brief Note ---
PG Immediate Post Op with CF Date of Surgery August 06, 2020 Pre & Post Diagnosis Operation Date: 08/05/20 12:00 <No data on this case meets the specified criteria> Operation Date: 08/06/20 11:00 Pre-Op Diagnosis: ABDOMINAL PAIN Post-Op Diagnosis: ABDOMINAL PAIN I identified the patient and participated in the time-out.: Yes Procedure Operation Date: 08/05/20 12:00 <No data on this case meets the specified criteria> Operation Date: 08/06/20 11:00 Actual Procedures p Laparoscopic Cholecystectomy with Cholangiogram, Lysis of Adhesions(Not Applicable) - Miguel A Givens MD, FACS Surgeon Miguel A Givens MD, FACS Hand [place] Blancher b tani guzmán Estimated Blood Loss 100 Findings Consistent with Post-Op Diagnosis Specimens Specimen Description: Culture: 1. Peritoneal Fluid 2. Gallbladder A. Gallbladder Drains Quinton-Jones Drain
--- NOTE | 2020-08-06 14:06 | Fluoroscopy Report ---
INTRAOPERATIVE CHOLANGIOGRAM HISTORY: Post cholecystectomy. FLUOROSCOPY TIME: 1 second. A single fluoroscopic spot image of the right upper quadrant. FINDINGS: Fluoroscopy was provided for an intraoperative cholangiogram status post cholecystectomy. C ontrast was injected through the cystic duct remnant. The common bile duct is normal in course and ca liber. There are no filling defects seen within the common bile duct to suggest a retained stone. Co ntrast extends into the small bowel. There is no intrahepatic bile duct dilatation. IMPRESSION: Fluoroscopy provided for an intraoperative cholangiogram status post cholecystectomy. No filling defects within the common bile duct. ACT 112: Negative or not required by law. Electronically signed by: Garland Prado M.D. 08/06/2020 2:05 PM
--- NOTE | 2020-08-06 14:16 | Operative Report ---
PG Post Operative Report Pre & Post Diagnosis Operation Date: 08/05/20 12:00 <No data on this case meets the specified criteria> Operation Date: 08/06/20 11:00 Pre-Op Diagnosis: ABDOMINAL PAIN Post-Op Diagnosis: ABDOMINAL PAIN I identified the patient and participated in the time-out.: Yes Procedure Operation Date: 08/05/20 12:00 <No data on this case meets the specified criteria> Operation Date: 08/06/20 11:00 Actual Procedures p Laparoscopic Cholecystectomy with Cholangiogram, Lysis of Adhesions(Not Applicable) - Miguel A Givens MD, FACS The patient was brought into the operating theater general endotracheal anesthesia the abdomen was prepped byline solution properly draped a timeout was had the patient was identified systemic antibiotics had been on board made a small incision above the umbilicus sufficient enough to grab the abdominal wall with [place] clamps small opening was made in the fascia 0 Vicryl was used to stay sutures and we entered the peritoneal cavity under direct visualization placed a 5 mm trocar CO2 insufflated this point her attention was turned to the right upper quadrant we were met with adhesions immediately and this was related to previous surgery when he was a child 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 At this point we could hardly see the gallbladder but we did notice that the patient had some peritoneal fluid in the gutter bilious in nature whether not this may been related to a perforated gallbladder we suctioned anoth and were able to collected and we sent it for cultures at this point we placed 2 5 mm subcostal ports under direct visualization and we started to work into the right upper quadrant where we were able to see the gallbladder which was distended and was covered with a fibrinous adhesion we then start taking this down as we grabbed the gallbladder actually it was very friable and we retrograde. Bile came out but did not see any stones. Most of her time was dissecting out all these adhesions from previous surgery we try to stay close to the gallbladder wall is much as possible then we were able then to dissect down what appeared to be that neck of the gallbladder mostly blunt dissection we got around the structure that appeared to be the cystic duct I change the epigastric trocar site to 11 mm using a larger clip we clipped it at the takeoff #4 urethral catheter transversing abdominal wall and a 14 Angiocath was positioned and a small opening that was made in this duct distal to the clip we held in place for another 10 mm clip and we identified at this point as we were well away from the common bile duct which appeared to be slightly larger than normal there was flow in the duodenum and is redundant cystic duct and a corkscrew fashion we then removed the Angiocath choked up on the cystic duct more and were able to clip the securely with 210 mm clips just distal to the entry site of the catheter cystic artery identified prior to her dissecting around the structure we had clipped approximately 2 5 mm clips and one distally and divided this point we were able then to free up the gallbladder stayed underneath it and were able to completely freed up from the liver or plane of dissection once easier once we were well away from the area which felt significant adhesions the gallbladder placed in an Endopouch and taken out intact through the epigastric port cultures were taken we suctioned out the subhepatic area and around the cystic duct and artery and appeared to be free of any bleeding the patient did have a generalized oozing from our dissection and he had been on heparin before therefore I elected to place a piece of Surgicel underneath the liver after we drained the subhepatic area with a 19 round Quinton-Jones taken out medially taken out lateral tension skin edge with 2-0 silk prior to doing this maneuver I had placed the camera right upper quadrant port site to identify the port of entry there was no injury identified there there were no adhesions although it seemed like the stomach was strictly adherent to the abdominal wall in that area proximal individual trochars were taken out under direct visualization last umbilical trocar fascial stitch 0 Vicryl was used to close the initial entry in the supraumbilical area and also the epigastric port site that we used 11 mm with large the incision subcutaneous tissue brought back together with 4-0 Vicryl Steri-Strips applied procedure was tolerated well by the patient addendum Judson guzmán present throughout the procedure and helped the retraction exposure and wound closure this was a very difficult dissection and we spent most of this time freeing up the adhesions around the gallbladder area from his previous surgery estimated blood loss 100 cc Surgeon Miguel A Givens MD, FACS Loft Worker b tani guzmán Estimated Blood Loss 100 Findings Consistent with Post-Op Diagnosis Specimens gallbladder Description of Procedure merda I attest to the content of the Intraoperative Record and any orders documented therein. Any exceptions are noted below.
[2020-08-06] MEDS: fentaNYL citrate 100 MCG/2 ML VIAL IV PRN ×4 (14:21→15:03)
--- NOTE | 2020-08-06 15:21 | Anesthesiology Progress Note ---
Date of Service August 06, 2020 Anesthesia Post Procedure Vital Signs Vital Signs: Temp Pulse Pulse Resp BP BP Pulse Ox 08/06/20 11:10 36.5 C 96 H 20 103/88 95 08/06/20 07:50 36.4 C L 90 18 115/83 96 08/06/20 03:03 36.8 C 95 H 20 113/78 93 08/05/20 23:44 36.6 C 48 L 20 132/67 92 08/05/20 22:20 92 H 08/05/20 19:43 36.8 C 72 20 108/76 93 08/05/20 16:00 88 Pain Intensity Abdomen: Pain Intensity: 6 Transfer of Care Handoff Completed per policy Notes Mental Status: alert / awake / arousable and participated in evaluation Patient Amnestic to Procedure: Yes Nausea / Vomiting: adequately controlled Pain: adequately controlled Airway Patency, RR, SpO2: stable & adequate BP & HR: stable & adequate Hydration State: stable & adequate Anesthetic Complications: no major complications apparent and Pt Satisfied with anesthetic care Notes: Mr. Rhodes awake very confused and combative. We had trouble obtaining an accurate SpO2 reading but eventually it was done and his SpO2 was in the high 90's. He was CTA b/l and finally was able to orient himself to person, place and time. He required a total of 100mcg fentanyl in recovery for abdominal pain. Patient was successfully weaned to 4L NC and he was resting comfortably upon writing this signout note. Patient appears ok for transfer back to floor. Given age and general anesthesia, at risk of sundowning this evening.
[2020-08-06] MEDS: HYDROmorphone INJ 1 MG/ML SYRINGE IV PRN ×3 (15:33→15:57)
[2020-08-06] MEDS ORDERED: MoRPHine SULFATE 4 MG/ML 1 ML CARP\\VIAL IV PRN (16:32)
--- NOTE | 2020-08-06 19:54 | Billing Data ---
Date of Service August 06, 2020 Coding Level of Care Code 05607 Subseq Hosp Care Lvl 2
[2020-08-07] MEDS: PIPERACILLIN/TAZOBACTAM 3.375 GM in DEXTROSE 5% 100 ML IV SCH ×4 (00:29→23:11)
[2020-08-07] MEDS: MoRPHine SULFATE 2 MG/ML CARP IV PRN ×2 (00:37→21:55)
[2020-08-07 06:31] LABS: Hematocrit (blood only) 35.1 % (42-52); Hemoglobin 12.3 g/dL (14.0-18.0); Immature Granulocytes # (auto) 0.04 K/uL (0.00-0.02); Immature Granulocytes % (auto) 0.3 %; Lymphocytes # (auto) 0.55 K/uL (1.2-3.4); Lymphocytes % (auto) 3.5 %; Mean Corpuscular Hemoglobin 35.3 pg (25-34); Mean Corpuscular Volume 100.9 fL (80-100); Mean Platelet Volume 11.1 fL (7.4-10.4); Monocytes # (auto) 0.53 K/uL (0.11-0.59); Monocytes % (auto) 3.4 %; Neutrophils # (auto) 14.48 K/uL (1.4-6.5); Neutrophils % (auto) 92.8 %; Platelet Count 138 K/uL (130-400); RDW Coefficient of Variation 16.5 % (11.5-14.5); Red Blood Count 3.48 M/uL (4.7-6.1)
--- NOTE | 2020-08-07 06:33 | Surgery Progress Note ---
Date of Service August 07, 2020 Assessment & Plan (1) Cholecystitis: Intraoperative findings was discussed with the patient including telling him that the previous surgery that he had as a child was near the gallbladder and required a lot of dissection The lab is pending this morning Can restart heparin drip today Present on Admission?: Yes Admission and Anticipated Discharge Date Admission Date: August 04, 2020 Subjective Complaining of some back pain some upper abdominal pain occasional hiccup no nausea Physical Exam Physical Exam: Is alert coherent resting comfortably in bed The abdomen is soft trocar sites are fine no seepage on the dressing the [place] drain is serous slightly sanguinous Results & Data ([facility]) Vital Signs (Past 12 Hours) Vital Signs Temp Pulse Pulse Resp BP Pulse Ox 08/07/20 03:17 36.6 C 106 H 22 113/71 97 08/06/20 23:47 36.8 C 109 H 22 121/82 100 08/06/20 22:19 105 H 08/06/20 20:15 36.5 C 106 H 18 126/86 99 08/06/20 18:42 36.4 C L 110 H 18 110/77 4 L PG Care Time/CCT Total # of Minutes Spent Total Time Spent with Patient: Total time spent is greater than 50% in coordination of care (as documented) at patient's floor/unit and/or counseling patient: Coding Level of Care Code None Diagnoses Cholecystitis K81.9
[2020-08-07 07:04] LABS: Albumin Level 2.7 gm/dl (3.4-5.0); BUN Creatinine Ratio 21.6 (10-20); Calcium 8.5 mg/dl (8.5-10.1); Creatinine Clr Calc Pharmacy 28.2 ml/min; Est GFR (African American) 36.4; Est GFR (Non-African American) 31.4; Magnesium 1.6 mg/dl (1.8-2.4); Potassium 4.1 mmol/L (3.5-5.1)
[2020-08-07 07:10] LABS: Globulin 2.6 gm/dl (2.5-4.0); Phosphorus 5.2 mg/dl (2.5-4.9); Total Protein 5.4 gm/dl (6.4-8.2)
[2020-08-07] MEDS ORDERED: LACTATED RINGER'S 1,000 ML IV SCH (07:15)
--- NOTE | 2020-08-07 08:13 | Anesthesiology Progress Note ---
Date of Service August 07, 2020 Anesthesia Post Procedure Vital Signs Vital Signs: Temp Pulse Pulse Pulse Resp BP BP 08/07/20 07:03 36.4 C L 96 H 20 105/69 08/07/20 03:17 36.6 C 106 H 22 113/71 08/06/20 23:47 36.8 C 109 H 22 121/82 08/06/20 22:19 105 H 08/06/20 20:15 36.5 C 106 H 18 126/86 08/06/20 18:42 36.4 C L 110 H 18 110/77 08/06/20 17:32 36.4 C L 102 H 19 120/82 08/06/20 17:00 36.3 C L 107 H 107 H 18 135/90 08/06/20 16:46 36.3 C L 106 H 18 124/78 08/06/20 16:35 36.3 C L 106 H 18 108/80 08/06/20 16:10 36.3 C L 106 H 16 116/79 08/06/20 16:00 105 H 15 108/74 08/06/20 15:50 103 H 16 107/77 08/06/20 15:40 103 H 20 114/71 08/06/20 15:30 104 H 20 111/89 08/06/20 15:20 104 H 24 118/82 08/06/20 15:10 104 H 20 115/83 08/06/20 15:00 103 H 12 108/72 08/06/20 14:50 107 H 23 111/83 08/06/20 14:40 109 H 22 120/81 08/06/20 14:30 112 H 28 H 117/92 08/06/20 14:20 105 H 26 H 117/92 08/06/20 14:19 36.0 C L 99 H 22 117/92 08/06/20 11:10 36.5 C 96 H 20 103/88 Pulse Ox 08/07/20 07:03 95 08/07/20 03:17 97 08/06/20 23:47 100 08/06/20 22:19 08/06/20 20:15 99 08/06/20 18:42 4 L 08/06/20 17:32 94 08/06/20 17:00 95 08/06/20 16:46 100 08/06/20 16:35 93 08/06/20 16:10 96 08/06/20 16:00 96 08/06/20 15:50 97 08/06/20 15:40 97 08/06/20 15:30 99 08/06/20 15:20 97 08/06/20 15:10 98 08/06/20 15:00 98 08/06/20 14:50 100 08/06/20 14:40 08/06/20 14:30 08/06/20 14:20 08/06/20 14:19 08/06/20 11:10 95 Pain Intensity Abdomen: Pain Intensity: 4 Notes Mental Status: alert / awake / arousable Patient Amnestic to Procedure: Yes Nausea / Vomiting: adequately controlled Pain: adequately controlled Airway Patency, RR, SpO2: stable & adequate BP & HR: stable & adequate Hydration State: stable & adequate Anesthetic Complications: no major complications apparent and Pt Satisfied with anesthetic care
[2020-08-07] MEDS: DIGOXIN 0.125 MG TAB PO SCH (08:39)
[2020-08-07] MEDS: AMIODARONE 200 MG TAB PO SCH ×2 (08:39→20:12)
[2020-08-07] MEDS: PANTOprazole 40 MG TAB PO SCH (08:40)
[2020-08-07] MEDS: TRIAMTERENE/HCTZ 37.5/25MG TAB PO SCH (08:40)
[2020-08-07] MEDS ORDERED: DIGOXIN 0.125 MG TAB PO ONE (09:27)
--- NOTE | 2020-08-07 09:32 | Cardiology Progress Note ---
Date of Service August 07, 2020 Assessment & Plan (1) Atrial flutter: Patient converted to Atrial Fibrillation with V-rates in the 110 to 120 bpm range. -- Continue Amiodarone 200 mg b.i.d. -- he received this morning's dose. -- Give extra dose of Digoxin 125 mcg x 1 now. Digoxin level subtherapeutic at 0.1 on 08/05/20. -- Correct hypomagnesemia, IV Magnesium Sulfate 1 G ordered. -- IV Lopressor 5 mg every 4 hours as needed for HR > 110 bpm. -- Heparin drip for thromboembolic prophylaxis. -- Convert to Eliquis when appropriate. (2) Acalculous cholecystitis: -- POD#1 s/p laparoscopic cholecystectomy. -- IV Zosyn. (3) Hypertension: Blood pressure has been well controlled during this admission. -- Triamterene-Hydrochlorothiazide 37.5-25 mg held -- giving IV Lasix 60 mg x 1 dose now. -- Continue to monitor renal function, electrolytes. (4) Dyslipidemia: Cholesterol is well controlled according to lipid panel 08/05/20. -- Total cholesterol 109 mg/dl. -- LDL 48 mg/dl. -- HDL 53 mg/dl. -- Continue Atorvastatin 20 daily. (5) Diastolic CHF: -- LVEF 45% to 50% with MR and TR on recent echocardiogram. -- I&O's indicate a positive fluid balance of > 4.1 liters, although body weight has not changed according to the chart, and physical examination is consistent with pleural effusions. -- Portable CXR today confirms bilateral pleural effusions with bibasilar consolidation, pulmonary vasculature does not appear congested. -- D/C IVF's. -- Lasix 60 IV x 1 dose. -- KCL 20 mEq x 1 dose. -- Continue incentive spirometry. Admission and Anticipated Discharge Date Admission Date: August 04, 2020 Subjective Mr. Rhodes is now POD#1 from a laparoscopic cholecystectomy, and he had some confusion and mental status changes last evening and it persists today. Amiodarone dose was held last evening due to confusion. He is hypomagnesemic, and converted from atrial flutter with a controlled rate to atrial fibrillation with RVR. His oxygen saturations have been low overnight and he requires O2 at 4 L/min via nasal cannula in order to maintain his O2 saturations in the low 90's. Patient received both Amiodarone 200 mg and Digoxin 125 mcg this morning -- HR is currently in the 110 to 120 bpm range. Patient denies any chest pain, heaviness, tightness, or pressure. He denies any SOB, orthopnea, or pnd. No palpitations or sensation that his heart is racing. Review of Systems Review of Systems: Unobtainable due to cognitive status Physical Exam Physical Exam: SpO2 is 90% on 4 L/min via NC. GENERAL: Patient is confused but interactive. HEENT: Head is atraumatic, normocephalic. EOM's intact. Sclerae anicteric. Facies symmetric. No perioral cyanosis. NECK: No JVD. JVP is elevated. Carotid upstrokes are + 2 bilaterally. No bruits are noted. CHEST/LUNGS: Absent breath in bilateral bases. No obvious wheezes, rales, or c rackles. CVS: S1 and S2 are irregularly irregular at 110 bpm with a grade 2-3/6 apical holosystolic murmur. No obvious diastolic murmurs. No gallops or rubs. PMI is nondisplaced. No lifts, heaves, or thrills. No abdominal aortic or renal bruits. ABDOMINAL EXAM: Bowel sounds are present. EXTREMITIES: No clubbing or cyanosis. No edema. Intact radial pulses bilaterally. NEUROLOGIC EXAM: Patient is awake, interactive, but confused. Speech is clear. TELEMETRY: -- Atrial fibrillation with rates of 105 to 120 bpm overnight. Results & Data ([facility]) Vital Signs (Past 12 Hours) Vital Signs Temp Pulse Pulse Resp BP Pulse Ox 08/07/20 08:39 73 08/07/20 07:03 36.4 C L 96 H 20 105/69 95 08/07/20 03:17 36.6 C 106 H 22 113/71 97 08/06/20 23:47 36.8 C 109 H 22 121/82 100 08/06/20 22:19 105 H Laboratory Results Laboratory Results - last 24 hr 08/07/20 08/07/20 06:05 06:05 WBC 15.60 H RBC 3.48 L Hgb 12.3 L Hct 35.1 L MCV 100.9 H MCH 35.3 H MCHC 35.0 RDW Std Deviation 59.0 H RDW Coeff of Osito 16.5 H Plt Count 138 MPV 11.1 H Immature Gran % (Auto) 0.3 Neut % (Auto) 92.8 Lymph % (Auto) 3.5 [place] % (Auto) 3.4 Eos % (Auto) 0.0 Baso % (Auto) 0.0 Neut # (Auto) 14.48 H Lymph # (Auto) 0.55 L [place] # (Auto) 0.53 Eos # (Auto) 0.00 Baso # (Auto) 0.00 Immature Gran # (Auto) 0.04 H Sodium 140 Potassium 4.1 D Chloride 107 Carbon Dioxide 25 Anion Gap 7.0 BUN 40 H Creatinine 1.87 H D Est Cr Clr Drug Dosing 28.2 Est GFR ( Amer) 36.4 Est GFR (Non-Af Amer) 31.4 BUN/Creatinine Ratio 21.6 H Glucose 103 H Calcium 8.5 Phosphorus 5.2 H Magnesium 1.6 L Total Bilirubin 2.0 H AST 26 ALT 44 Alkaline Phosphatase 83 Total Protein 5.4 L Albumin 2.7 L Globulin 2.6 Albumin/Globulin Ratio 1.0 Diagnostic Findings PORTABLE CXR 08/07/20: An AP, portable, upright chest radiograph is compared to study dated 04/02/2020. Correlation is made with abdominal CT dated 08/04/2020. The examination is degraded by portable technique and patient rotation. The heart is enlarged noting atherosclerotic calcification of the thoracic aorta. The pulmonary vasculature is not congested. There are layering pleural effusions with bibasilar consolidation. No pneumothorax is seen. The bony thorax is grossly intact. Advanced arthritic change is seen in the shoulders. An anchor is noted in the right humeral head. IMPRESSION: 1. Cardiomegaly without radiographic evidence of congestive failure. 2. Layering pleural effusions with bibasilar consolidation. This is new from 04/02/2020, and the left pleural effusion has increased in size as compared to 08/04/2020 CT scan. Medications Administered Amiodarone HCl (Amiodarone 200 Mg Tab) 200 mg PO BID MEJIA Stop: 09/03/20 20:59 Last Admin: 08/07/20 08:39 Dose: 200 mg Documented by: [id number] Admin: 08/06/20 20:01 Dose: Not Given Documented by: [id number] Admin: 08/06/20 07:30 Dose: 200 mg Documented by: [id number] Admin: 08/05/20 20:09 Dose: 200 mg Documented by: [id number] Admin: 08/05/20 10:41 Dose: Not Given Documented by: [id number] Admin: 08/04/20 20:35 Dose: 200 mg Documented by: [id number] Digoxin (Digoxin 0.125 Mg Tab) 0.125 mg PO Q2D MEJIA Stop: 09/04/20 08:59 Last Admin: 08/07/20 08:39 Dose: 0.125 mg Documented by: [id number] Admin: 08/05/20 10:41 Dose: Not Given Documented by: [id number] Piperacillin Sod/Tazobactam (Sod 3.375 gm/ Dextrose) 115 mls @ 28.75 mls/hr IV Q8H [facility]; Protocol Stop: 08/14/20 14:59 Last Admin: 08/07/20 06:32 Dose: 28.8 mls/hr Documented by: [id number] Infusion: 08/07/20 04:48 Dose: 0 mls/hr Documented by: [id number] Admin: 08/07/20 00:29 Dose: 28.8 mls/hr Documented by: [id number] Infusion: 08/06/20 20:47 Dose: 0 mls/hr Documented by: [id number] Admin: 08/06/20 16:44 Dose: 28.8 mls/hr Documented by: [id number] Infusion: 08/06/20 14:07 Dose: 0 mls/hr Documented by: [id number] Infusion: 08/06/20 14:07 Dose: 28.8 mls/hr Documented by: [id number] Infusion: 08/06/20 11:02 Dose: 0 mls/hr Documented by: [id number] Admin: 08/06/20 07:30 Dose: 28.8 mls/hr Documented by: [id number] Infusion: 08/06/20 05:16 Dose: 0 mls/hr Documented by: [id number] Admin: 08/05/20 23:40 Dose: 28.8 mls/hr Documented by: [id number] Infusion: 08/05/20 20:08 Dose: 0 mls/hr Documented by: [id number] Admin: 08/05/20 16:01 Dose: 28.8 mls/hr Documented by: [id number] Infusion: 08/05/20 10:38 Dose: 0 mls/hr Documented by: [id number] Admin: 08/05/20 06:38 Dose: 28.8 mls/hr Documented by: [id number] Infusion: 08/05/20 04:22 Dose: 0 mls/hr Documented by: [id number] Admin: 08/04/20 23:52 Dose: 28.8 mls/hr Documented by: [id number] Infusion: 08/04/20 20:13 Dose: 0 mls/hr Documented by: [id number] Admin: 08/04/20 16:08 Dose: 28.8 mls/hr Documented by: [id number] Lactated Ringer's (Lr) 1,000 mls @ 80 mls/hr IV .[id number] MEJIA Stop: 09/06/20 07:14 Last Admin: 08/07/20 07:49 Dose: 80 mls/hr Documented by: [id number] Morphine Sulfate (Morphine Sulfate 2 Mg/Ml Carp) 2 mg IV Q2H PRN PRN Reason: Chest Pain Stop: 08/18/20 13:40 Last Admin: 08/07/20 00:37 Dose: 2 mg Documented by: [id number] Admin: 08/06/20 02:30 Dose: 2 mg Documented by: [id number] Admin: 08/05/20 20:06 Dose: 2 mg Documented by: [id number] Admin: 08/05/20 12:56 Dose: 2 mg Documented by: [id number] Admin: 08/05/20 03:26 Dose: 2 mg Documented by: [id number] Admin: 08/04/20 23:32 Dose: 2 mg Documented by: [id number] Admin: 08/04/20 15:33 Dose: 2 mg Documented by: [id number] Morphine Sulfate (Morphine Sulfate 4 Mg/Ml 1 Ml Carp\Vial) 4 mg IV Q2H PRN PRN Reason: Pain Stop: 08/20/20 16:31 Last Admin: 08/06/20 16:40 Dose: 4 mg Documented by: [id number] Pantoprazole Sodium (Pantoprazole 40 Mg Tab) 40 [facility] [place]; Protocol Stop: 09/04/20 08:59 Last Admin: 08/07/20 08:40 Dose: 40 mg Documented by: [id number] Admin: 08/06/20 07:30 Dose: 40 mg Documented by: [id number] Admin: 08/05/20 10:42 Dose: Not Given Documented by: [id number] Triamterene/Hydrochlorothiazide (Triamterene/Hctz 37.5/25mg Tab) 1 tab PO DAILY MEJIA Stop: 09/04/20 08:59 Last Admin: 08/07/20 08:40 Dose: 1 tab Documented by: [id number] Admin: 08/06/20 07:31 Dose: 1 tab Documented by: [id number] Admin: 08/05/20 10:41 Dose: Not Given Documented by: [id number] Discontinued Medications Fentanyl Citrate (Fentanyl Citrate 100 Mcg/2 Ml Vial) 25 mcg IV Q5M PRN PRN Reason: PACU Use Only-Pain Stop: 08/06/20 19:45 Last Admin: 08/06/20 15:03 Dose: 25 mcg Documented by: [id number] Admin: 08/06/20 14:58 Dose: 25 mcg Documented by: [id number] Admin: 08/06/20 14:53 Dose: 25 mcg Documented by: [id number] Admin: 08/06/20 14:21 Dose: 25 mcg Documented by: [id number] Heparin Sodium/Dextrose (Heparin Iv Standard *No* Bolus) 1 ea N/A ONE ONE; Protocol Stop: 08/04/20 10:39 Last Admin: 08/04/20 12:21 Dose: 1 ea Documented by: [id number] Hydromorphone HCl (Hydromorphone Inj 1 Mg/Ml Syringe) 0.25 mg IV Q5M PRN PRN Reason: PACU Use Only-Pain Stop: 08/06/20 19:45 Last Admin: 08/06/20 15:57 Dose: 0.25 mg Documented by: [id number] Admin: 08/06/20 15:40 Dose: 0.25 mg Documented by: [id number] Admin: 08/06/20 15:33 Dose: 0.25 mg Documented by: [id number] Sodium Chloride (Nss 1000ml) 500 mls @ 999 mls/hr IV .Q31M ONE Stop: 08/04/20 07:58 Last Infusion: 08/04/20 08:20 Dose: 0 mls/hr Documented by: [id number] Admin: 08/04/20 07:49 Dose: 999 mls/hr Documented by: [id number] Piperacillin Sod/Tazobactam Sod (Zosyn) 4.5 gm in 120 mls @ 240 mls/hr IV NOW ONE Stop: 08/04/20 10:19 Last Infusion: 08/04/20 10:40 Dose: 0 mls/hr Documented by: [id number] Admin: 08/04/20 10:04 Dose: 240 mls/hr Documented by: [id number] Heparin Sodium/Dextrose (Heparin Sodium/Dextrose) 25,000 units in 500 mls @ 14 mls/hr IV .Q24H MEJIA; Protocol Stop: 09/03/20 10:44 Last Admin: 08/06/20 05:52 Dose: Not Given Documented by: [id number] Titration: 08/06/20 05:50 Dose: 0 units/hr, 0 mls/hr Documented by: [id number] Cosigned by: [id number] Titration: 08/05/20 23:02 Dose: 700 units/hr, 14 mls/hr Documented by: [id number] Cosigned by: [id number] Titration: 08/05/20 15:09 Dose: 700 units/hr, 14 mls/hr Documented by: [id number] Cosigned by: [id number] Admin: 08/05/20 14:28 Dose: 700 units/hr, 14 mls/hr Documented by: [id number] Cosigned by: [id number] Titration: 08/05/20 09:09 Dose: 0 units/hr, 0 mls/hr Documented by: [id number] Cosigned by: [id number] Titration: 08/05/20 06:53 Dose: 700 units/hr, 14 mls/hr Documented by: [id number] Cosigned by: [id number] Titration: 08/05/20 04:17 Dose: 700 units/hr, 14 mls/hr Documented by: [id number] Cosigned by: [id number] Titration: 08/05/20 01:44 Dose: 0 units/hr, 0 mls/hr Documented by: [id number] Cosigned by: [id number] Titration: 08/04/20 23:07 Dose: 1,050 units/hr, 21 mls/hr Documented by: [id number] Cosigned by: [id number] Titration: 08/04/20 18:02 Dose: 1,050 units/hr, 21 mls/hr Documented by: [id number] Cosigned by: [id number] Titration: 08/04/20 16:44 Dose: 0 units/hr, 0 mls/hr Documented by: [id number] Cosigned by: [id number] Admin: 08/04/20 12:22 Dose: 1,350 units/hr, 27 mls/hr Documented by: [id number] Cosigned by: [id number] Dextrose/Lactated Ringer's (D5w And Lactated Ringers) 1,000 mls @ 100 mls/hr IV .Q10H MEJIA Stop: 09/03/20 13:08 Last Infusion: 08/05/20 19:31 Dose: 0 mls/hr Documented by: [id number] Admin: 08/05/20 10:00 Dose: 100 mls/hr Documented by: [id number] Infusion: 08/05/20 09:56 Dose: 0 mls/hr Documented by: [id number] Admin: 08/04/20 23:56 Dose: 100 mls/hr Documented by: [id number] Infusion: 08/04/20 23:55 Dose: 100 mls/hr Documented by: [id number] Admin: 08/04/20 13:55 Dose: 100 mls/hr Documented by: [id number] Ioversol (Ioversol 100ml) 93 ml IV ONCE ONE Stop: 08/04/20 07:42 Last Admin: 08/04/20 07:41 Dose: 93 ml Documented by: [id number] Ioversol (Optiray 300) 7 ml INJ ONCE ONE Stop: 08/06/20 13:47 Last Admin: 08/06/20 13:46 Dose: 7 ml Documented by: [id number] Lidocaine/Epinephrine (Lidocaine/Epinephrine 1% 20 Ml Vial) Confirm Administered Dose 20 ml .ROUTE .STK-MED ONE Stop: 08/06/20 12:05 Last Admin: 08/06/20 13:58 Dose: 14 ml Documented by: [id number] Miscellaneous (Surgicel Absorb Hemostat 2in X 14in) 1 ea TOP ONCE ONE Stop: 08/06/20 13:55 Last Admin: 08/06/20 13:56 Dose: 1 ea Documented by: [id number] PG Care Time/CCT Total # of Minutes Spent Total Time Spent with Patient: Total time spent is greater than 50% in coordination of care (as documented) at patient's floor/unit and/or counseling patient:65 Coding Level of Care Code 78350 Subseq Hosp Care Lvl 3 Diagnoses Atrial flutter I48.92 Acalculous cholecystitis K81.9 Hypertension I10 Dyslipidemia E78.5 Diastolic CHF I50.30
[2020-08-07] MEDS ORDERED: MAGNESIUM SULFATE / D5W 1 GM/100 ML BAG IV ONE (09:45)
[2020-08-07] MEDS ORDERED: METOPROLOL TARTRATE 1 MG/ML VIAL IV PRN (10:07)
--- NOTE | 2020-08-07 10:12 | Hospitalist Progress Note ---
Date of Service August 07, 2020 Assessment & Plan (1) Acalculous cholecystitis: Alonso Rhodes is a 89y/o M with PMH significant for heart failure with preserved ejection fraction, CKD stage III, hypertension, A. fib on Eliquis, BPH; admitted for cholecystitis. Acalculous cholecystitis: -POD #1 from laprascopic cholecystectomy -CTAP showed inflammatory findings consistent with acute cholecystitis. -HIDA scan performed, no evidence of common bile duct obstruction -AST/ALT/Alk phos stable and downtrending -Clear liquids this afternoon and advance diet as tolerated -continue Zosyn at this time -had drop in H/H this afternoon, will monitor with additional H/H at 8pm this evening -hold heparin Atrial fibrillation: -At home is on digoxin, amiodarone, Eliquis. -holding heparin in the setting of drop in H/H -Continue digoxin and amiodarone. Per cardiology can titrate digoxin dosing for rate control. Acute Kidney Injury in the setting of CKD stage III: -Baseline creatinine around 1.2 -peaked this AM following surgery at 1.87 CHF: -appears 4L net positive this morning since admission -CXR demonstrating increased pleural effusions, with oxygen requirement -cardiology recommended IV lasix 60mg, and d/c of fluids (2) Afib: (3) Elevated troponin: (4) Heart failure with preserved ejection fraction: (5) Chronic kidney disease, stage 3: (6) Hypertension: Admission and Anticipated Discharge Date Admission Date: August 04, 2020 Supervising Physician Co-Signing Physician Notes I personally examined the patient and verified all bradsahw points of history and exam, discussed case, and agree with decision making with Dr Juarez. Seen twice today. This morning still needing oxygen although denying dyspnea. This afternoon sitting in bed reading the newspaper off of oxygen visiting with his . No complaints of dyspnea. Generally feeling well overall. Vitals noted, awake alert oriented pleasant no distress. HEENT normocephalic at raumatic mucous membranes moist. Lungs clear to auscultation although diminished breath sounds bibasilar, earlier today on 4 L oxygen later on room air99% on room air, no accessory muscle use good effort. Skin shows no rashes no pallor or icterus. Neuro shows no focal deficits. Acalculous cholecystitis. Now postop from cholecystectomypostop care guided by surgery. Postop care per surgeryseems to be doing well in this regard Acute on chronic systolic CHFphysiologic stress from surgery likely --> but after 1 dose lasix doing much better, monitor elevated troponin. Probably demand ischemia from cholecystitis and possibly a degree of decreased clearance from CKD afib. Rate controlled, anticoagulation to resume in the next day or so HTN. BP acceptable Appearance of sleep apneathis is only immediately post surgical, continue to observe, but seems to been situational problem DVT prophylaxiswill resume anticoagulation in the near future Otherwise as above Subjective Patient continuing to require oxygen supplementation overnight following surgery, had large amount of fatigue/lethargy following the procedure and took awhile to fully wake up. Slightly more agitated than previously was. Appears to be 4L positive since admission based off I/O records. Review of Systems Review of Systems: All systems reviewed & are unremarkable except as noted in Subjective Physical Exam Constitutional: WD/WN, vitals as above Eyes: PERRL, conjunctivae normal, anicteric sclerae Respiratory: normal respiratory effort, lungs clear to auscultation Auscultation: + diminished lung sounds Cardiovascular: Rate/Rhythm: regular rate and regular rhythm Heart Sounds: no gallop, no murmur and no cardiac rub Vessels: normal peripheral pulses Gastrointestinal (Abdomen): Inspection/Auscultation: abdomen normal to inspection and normal bowel sounds Percussion/Palpation: + abdomen tender (RUQ) and abdomen soft; no guarding and abdomen not rigid Skin: no rashes, warm and dry Neurologic: PERRL, EOMI, accommodation nl, no face palsy, no dysarthria Psychiatric: Orientation: alert and oriented x 3 Results & Data Results & Data ([facility]) Vital Signs (Past 12 Hours) Vital Signs Temp Pulse Pulse Resp BP Pulse Ox 08/07/20 08:39 73 08/07/20 07:03 36.4 C L 96 H 20 105/69 95 08/07/20 03:17 36.6 C 106 H 22 113/71 97 08/06/20 23:47 36.8 C 109 H 22 121/82 100 08/06/20 22:19 105 H Laboratory Results 08/07/20 08/07/20 08/07/20 Range/Units 14:47 06:05 06:05 WBC 15.60 H (4.8-10.8) K/uL RBC 3.48 L (4.7-6.1) M/uL Hgb 10.2 L 12.3 L (14.0-18.0) g/dL Hct 29.1 L 35.1 L (42-52) % MCV 100.9 H (80-100) fL MCH 35.3 H (25-34) pg MCHC 35.0 (32-36) g/dL RDW Std Deviation 59.0 H (36.4-46.3) fL RDW Coeff of [place] 16.5 H (11.5-14.5) % Plt Count 138 (130-400) K/uL MPV 11.1 H (7.4-10.4) fL Immature Gran % (Auto) 0.3 % Neut % (Auto) 92.8 % Lymph % (Auto) 3.5 % [place] % (Auto) 3.4 % Eos % (Auto) 0.0 % Baso % (Auto) 0.0 % Neut # (Auto) 14.48 H (1.4-6.5) K/uL Lymph # (Auto) 0.55 L (1.2-3.4) K/uL [place] # (Auto) 0.53 (0.11-0.59) K/uL Eos # (Auto) 0.00 (0-0.5) K/uL Baso # (Auto) 0.00 (0-0.2) K/uL Immature Gran # (Auto) 0.04 H (0.00-0.02) K/uL Sodium 140 (136-145) mmol/L Potassium 4.1 D (3.5-5.1) mmol/L Chloride 107 (98-107) mmol/L Carbon Dioxide 25 (21-32) mmol/L Anion Gap 7.0 (3-11) BUN 40 H (7-18) mg/dl Creatinine 1.87 H D (0.6-1.4) mg/dl Est Cr Clr Drug Dosing 28.2 ml/min Est GFR ( Amer) 36.4 Est GFR (Non-Af Amer) 31.4 BUN/Creatinine Ratio 21.6 H (10-20) Glucose 103 H (70-99) mg/dl Calcium 8.5 (8.5-10.1) mg/dl Phosphorus 5.2 H (2.5-4.9) mg/dl Magnesium 1.6 L (1.8-2.4) mg/dl Total Bilirubin 2.0 H (0.2-1) mg/dl AST 26 (15-37) U/L ALT 44 (12-78) U/L Alkaline Phosphatase 83 (45-117) U/L Total Protein 5.4 L (6.4-8.2) gm/dl Albumin 2.7 L (3.4-5.0) gm/dl Globulin 2.6 (2.5-4.0) gm/dl Albumin/Globulin Ratio 1.0 (0.9-2) Resident Activity Tracking Resident Involvement: Resident Care Provided Care Provided: Adult [facility] (1) Chronic kidney disease, stage 3 Chronic kidney disease stage 3 subtype: stage 3b (GFR 30-44) Qualified Code(s): N18.32 - Chronic kidney disease, stage 3b (2) Heart failure with preserved ejection fraction Heart failure chronicity: chronic Qualified Code(s): I50.32 - Chronic diastolic (congestive) heart failure (3) Afib Atrial fibrillation type: permanent Qualified Code(s): I48.21 - Permanent atrial fibrillation
--- NOTE | 2020-08-07 11:05 | XRay Report ---
SINGLE VIEW CHEST CLINICAL HISTORY: Hypoxia. FINDINGS: An AP, portable, upright chest radiograph is compared to study dated 04/02/2020. Correlatio n is made with abdominal CT dated 08/04/2020. The examination is degraded by portable technique and pa tient rotation. The examination is degraded by portable technique and patient rotation. The heart is enlarged noting atherosclerotic calcification of the thoracic aorta. The pulmonary vasculature is noncongested. There are layering pleural effusions with bibasilar consolidation. No pneumothorax is s een. The bony thorax is grossly intact. Advanced arthritic change is seen in the shoulders. An anchor is noted in the right humeral head. IMPRESSION: 1. Cardiomegaly without radiographic evidence of congestive failure. 2. Layering pleural effusions with bibasilar consolidation. This is new from 04/02/2020, and the left pleural effusion has increased in size as compared to 08/04/2020 CT scan. ACT 112: Negative or not required by law. Electronically signed by: Jd Nieves M.D. 08/07/2020 11:03 AM
[2020-08-07] MEDS ORDERED: FUROSEMIDE 60 MG in SYRINGE 0 ML IV STA (11:28)
[2020-08-07] MEDS ORDERED: POTASSIUM CHLORIDE CRTAB 20 MEQ TABCR PO STA (11:29)
[2020-08-07] MEDS ORDERED: ALUMINUM/MAGNESIUM SUSP 30 ML UDC PO PRN (14:33)
--- NOTE | 2020-08-07 14:41 | Surgery Progress Note ---
Date of Service August 07, 2020 Assessment & Plan Admission and Anticipated Discharge Date Admission Date: August 04, 2020 Subjective called for 160 cc bloody drainage for shift patient tolerating diet, feels ok dark blood in drain will check H&H, continue to hold heparin (has not yet been restarted post op) Results & Data ([facility]) Vital Signs (Past 12 Hours) Vital Signs Temp Pulse Pulse Resp BP Pulse Ox 08/07/20 11:26 36.6 C 96 H 20 92/61 L 99 08/07/20 08:39 73 08/07/20 07:03 36.4 C L 96 H 20 105/69 95 08/07/20 03:17 36.6 C 106 H 22 113/71 97 PG Care Time/CCT Total # of Minutes Spent Total Time Spent with Patient: Total time spent is greater than 50% in coordination of care (as documented) at patient's floor/unit and/or counseling patient: Coding Level of Care Code None
[2020-08-07 15:25] LABS: Hematocrit (blood only) 29.1 % (42-52); Hemoglobin 10.2 g/dL (14.0-18.0)
--- NOTE | 2020-08-07 17:49 | Billing Data ---
Date of Service August 07, 2020 Coding Level of Care Code 30281 Subseq Hosp Care Lvl 3
[2020-08-07 20:23] LABS: Hematocrit (blood only) 27.4 % (42-52); Hemoglobin 9.7 g/dL (14.0-18.0)
--- NOTE | 2020-08-07 22:49 | Communication Note ---
Date of Service: August 07, 2020 Received sign out from day team that pt. was taking eliquis pre-op. As Drop in H/H noted post-op repeat H/H ordered for this evening. Labs reviewed and H/H remain stable at 9.7 an 27.4 respectively. Will continue to follow.
[2020-08-08] MEDS: PIPERACILLIN/TAZOBACTAM 3.375 GM in DEXTROSE 5% 100 ML IV SCH ×3 (05:47→22:25)
[2020-08-08 06:49] LABS: Hematocrit (blood only) 26.8 % (42-52); Hemoglobin 9.3 g/dL (14.0-18.0); Immature Granulocytes # (auto) 0.04 K/uL (0.00-0.02); Immature Granulocytes % (auto) 0.3 %; Lymphocytes # (auto) 0.71 K/uL (1.2-3.4); Lymphocytes % (auto) 4.6 %; Mean Corpuscular Hemoglobin 34.8 pg (25-34); Mean Corpuscular Hgb Conc 34.7 g/dL (32-36); Mean Corpuscular Volume 100.4 fL (80-100); Mean Platelet Volume 10.4 fL (7.4-10.4); Monocytes # (auto) 0.83 K/uL (0.11-0.59); Monocytes % (auto) 5.4 %; Neutrophils # (auto) 13.78 K/uL (1.4-6.5); Neutrophils % (auto) 89.7 %; Platelet Count 129 K/uL (130-400); RDW Coefficient of Variation 16.4 % (11.5-14.5); RDW Standard Deviation 58.8 fL (36.4-46.3); Red Blood Count 2.67 M/uL (4.7-6.1); White Blood Count 15.36 K/uL (4.8-10.8)
[2020-08-08] MEDS ORDERED: bisacodyL 10 MG SUPP PR PRN (06:55)
--- NOTE | 2020-08-08 07:12 | Hospitalist Progress Note ---
Date of Service August 08, 2020 Assessment & Plan (1) Acalculous cholecystitis: Alonso Rhodes is a 89y/o M with PMH significant for heart failure with preserved ejection fraction, CKD stage III, hypertension, A. fib on Eliquis, BPH; admitted for cholecystitis. Anemia: -Hgb dropped from ~12 to ~9 from yesterday to today, with borderline hypotension -not having symptoms at this time -having high amount of sanguinous output from ZACKARY drain (>1L) -Surgery recommended continued monitoring of H&H q6h -will continue to monitor Cr in addition to this given potential for demonstration of end-organ damage -Type & cross ordered; will hold 2 units at this time -would initiate transfusions for Hgb <7, or for Hgb<8 with worsening Cr, or if development of symptoms from blood loss -continue to monitor ZACKARY output Acalculous cholecystitis: -POD #2 from laprascopic cholecystectomy -CTAP showed inflammatory findings consistent with acute cholecystitis. -HIDA scan performed, no evidence of common bile duct obstruction -AST/ALT/Alk phos stable and downtrending -Full liquid diet -continue Zosyn at this time Atrial fibrillation: -At home is on digoxin, amiodarone, Eliquis. -Continue digoxin and amiodarone -hold heparin, and hold eliquis at this time given apparent blood loss Acute Kidney Injury in the setting of CKD stage III: -Baseline creatinine around 1.2 -peaked this AM following surgery at 1.87, with diuretic overnight had bump in Cr to 2.29 -will avoid additional diuretics at this time CHF: -appears 4L net positive this morning since admission -CXR demonstrating increased pleural effusions -improving oxygen requirement over the last 24 hrs Diet: full liquid diet Code Status: Full code DVT ppx: hold in the setting of apparent blood loss (2) Afib: (3) Elevated troponin: (4) Heart failure with preserved ejection fraction: (5) Chronic kidney disease, stage 3: (6) Hypertension: (7) Anemia: Admission and Anticipated Discharge Date Admission Date: August 04, 2020 Supervising Physician Co-Signing Physician Notes I personally examined the patient and verified all bradshaw points of history and exam, discussed case, and agree with decision making with Dr Juarez. Feeling okay, ZACKARY drain with significant output. Does not feel weak or lightheaded. No shortness of breath. Vitals noted, awake alert oriented pleasant no distress. HEENT normocephalic atraumatic mucous membranes moist. Lungs clear to auscultation bilaterally no rales rhonchi or wheezes no accessory muscle use good effort. Skin shows no rashes no pallor or icterus. Neuro shows no focal deficits. Acalculous cholecystitis. Now postop from cholecystectomyongoing supportive care Acute blood loss anemialikely from surgical bed given that there was extensive scar tissue. Hemoglobin continues to trend down, I suspect some of his LASHAWN is related to the acute anemia. 2 units of been typed and crossed. Currently no clear indication to transfuse, but if his hemoglobin continues to drop and/or creatinine continues to rise in the face of dropping hemoglobin, then we will definitely need to give him blood Acute on chronic systolic CHFphysiologic stress from surgery likely --> did improve post Lasix. elevated troponin. Probably demand ischemia from cholecystitis and possibly a degree of decreased clearance from CKD afib. Rate controlled, have to hold anticoagulation in the face of bloody output in his ZACKARY drain HTNas relates to the acute blood loss anemia, etc., blood pressures currently on the low side. Follow closely Appearance of sleep apneathis is only immediately post surgical, continue to observe, but seems to been situational problem DVT prophylaxiswill resume anticoagulation in the near future (currently contraindicated due to the acute blood loss anemia) Otherwise as above Subjective Patient overnight and throughout the day having large amounts of sanguinous output through his ZACKARY drain (>1L total), he is feeling overall well with the exception of frustration with continuing to be in the hospital. Not feeling short of breath, not having chest pains, no abdominal pain, feels constipated despite suppository. Review of Systems Review of Systems: All systems reviewed & are unremarkable except as noted in Subjective Physical Exam Constitutional: WD/WN, vitals as above Eyes: PERRL, conjunctivae normal, anicteric sclerae Respiratory: normal respiratory effort, lungs clear to auscultation Auscultation: + diminished lung sounds Cardiovascular: Rate/Rhythm: regular rate and regular rhythm Heart Sounds: no gallop, no murmur and no cardiac rub Vessels: normal peripheral pulses Gastrointestinal (Abdomen): Inspection/Auscultation: abdomen normal to inspection and normal bowel sounds Percussion/Palpation: + abdomen tender (RUQ) and abdomen soft; no guarding and abdomen not rigid Skin: no rashes, warm and dry Neurologic: PERRL, EOMI, accommodation nl, no face palsy, no dysarthria Psychiatric: Orientation: alert and oriented x 3 Results & Data Results & Data ([facility]) Vital Signs (Past 12 Hours) Vital Signs Temp Pulse Pulse Pulse Resp BP Pulse Ox 08/08/20 06:04 110 H 08/08/20 04:07 36.8 C 76 20 108/73 94 08/07/20 23:48 36.6 C 54 L 18 111/73 99 Laboratory Results 08/08/20 08/08/20 08/08/20 Range/Units 15:27 15:27 15:27 WBC (4.8-10.8) K/uL RBC (4.7-6.1) M/uL Hgb 9.0 L (14.0-18.0) g/dL Hct 25.5 L (42-52) % MCV (80-100) fL MCH (25-34) pg MCHC (32-36) g/dL RDW Std Deviation (36.4-46.3) fL RDW Coeff of Osito (11.5-14.5) % Plt Count (130-400) K/uL MPV (7.4-10.4) fL Immature Gran % (Auto) % Neut % (Auto) % Lymph % (Auto) % Carver % (Auto) % Eos % (Auto) % Baso % (Auto) % Neut # (Auto) (1.4-6.5) K/uL Lymph # (Auto) (1.2-3.4) K/uL Carver # (Auto) (0.11-0.59) K/uL Eos # (Auto) (0-0.5) K/uL Baso # (Auto) (0-0.2) K/uL Immature Gran # (Auto) (0.00-0.02) K/uL Sodium (136-145) mmol/L Potassium (3.5-5.1) mmol/L Chloride (98-107) mmol/L Carbon Dioxide (21-32) mmol/L Anion Gap (3-11) BUN (7-18) mg/dl Creatinine 2.33 H (0.6-1.4) mg/dl Est Cr Clr Drug Dosing 22.6 ml/min Est GFR ( Amer) 27.9 Est GFR (Non-Af Amer) 24.1 BUN/Creatinine Ratio (10-20) Glucose (70-99) mg/dl Calcium (8.5-10.1) mg/dl Phosphorus (2.5-4.9) mg/dl Magnesium (1.8-2.4) mg/dl Total Bilirubin (0.2-1) mg/dl AST (15-37) U/L ALT (12-78) U/L Alkaline Phosphatase (45-117) U/L Total Protein (6.4-8.2) gm/dl Albumin (3.4-5.0) gm/dl Globulin (2.5-4.0) gm/dl Albumin/Globulin Ratio (0.9-2) Lipase (73-393) U/L Blood Type Pending Antibody Screen Pending Crossmatch See Detail 08/08/20 08/08/20 08/08/20 Range/Units 12:46 06:28 06:28 WBC 15.36 H (4.8-10.8) K/uL RBC 2.67 L (4.7-6.1) M/uL Hgb 8.9 L 9.3 L (14.0-18.0) g/dL Hct 25.1 L 26.8 L (42-52) % MCV 100.4 H (80-100) fL MCH 34.8 H (25-34) pg MCHC 34.7 (32-36) g/dL RDW Std Deviation 58.8 H (36.4-46.3) fL RDW Coeff of Osito 16.4 H (11.5-14.5) % Plt Count 129 L (130-400) K/uL MPV 10.4 (7.4-10.4) fL Immature Gran % (Auto) 0.3 % Neut % (Auto) 89.7 % Lymph % (Auto) 4.6 % Carver % (Auto) 5.4 % Eos % (Auto) 0.0 % Baso % (Auto) 0.0 % Neut # (Auto) 13.78 H (1.4-6.5) K/uL Lymph # (Auto) 0.71 L (1.2-3.4) K/uL Carver # (Auto) 0.83 H (0.11-0.59) K/uL Eos # (Auto) 0.00 (0-0.5) K/uL Baso # (Auto) 0.00 (0-0.2) K/uL Immature Gran # (Auto) 0.04 H (0.00-0.02) K/uL Sodium (136-145) mmol/L Potassium (3.5-5.1) mmol/L Chloride (98-107) mmol/L Carbon Dioxide (21-32) mmol/L Anion Gap (3-11) BUN (7-18) mg/dl Creatinine (0.6-1.4) mg/dl Est Cr Clr Drug Dosing ml/min Est GFR ( Amer) Est GFR (Non-Af Amer) BUN/Creatinine Ratio (10-20) Glucose (70-99) mg/dl Calcium (8.5-10.1) mg/dl Phosphorus (2.5-4.9) mg/dl Magnesium (1.8-2.4) mg/dl Total Bilirubin (0.2-1) mg/dl AST (15-37) U/L ALT (12-78) U/L Alkaline Phosphatase (45-117) U/L Total Protein (6.4-8.2) gm/dl Albumin (3.4-5.0) gm/dl Globulin (2.5-4.0) gm/dl Albumin/Globulin Ratio (0.9-2) Lipase 44 L (73-393) U/L Blood Type Antibody Screen Crossmatch 08/08/20 08/07/20 Range/Units 06:28 20:11 WBC (4.8-10.8) K/uL RBC (4.7-6.1) M/uL Hgb 9.7 L (14.0-18.0) g/dL Hct 27.4 L (42-52) % MCV (80-100) fL MCH (25-34) pg MCHC (32-36) g/dL RDW Std Deviation (36.4-46.3) fL RDW Coeff of Osito (11.5-14.5) % Plt Count (130-400) K/uL MPV (7.4-10.4) fL Immature Gran % (Auto) % Neut % (Auto) % Lymph % (Auto) % Carver % (Auto) % Eos % (Auto) % Baso % (Auto) % Neut # (Auto) (1.4-6.5) K/uL Lymph # (Auto) (1.2-3.4) K/uL Carver # (Auto) (0.11-0.59) K/uL Eos # (Auto) (0-0.5) K/uL Baso # (Auto) (0-0.2) K/uL Immature Gran # (Auto) (0.00-0.02) K/uL Sodium 134 L (136-145) mmol/L Potassium 4.2 (3.5-5.1) mmol/L Chloride 102 (98-107) mmol/L Carbon Dioxide 25 (21-32) mmol/L Anion Gap 7.0 (3-11) BUN 50 H (7-18) mg/dl Creatinine 2.26 H D (0.6-1.4) mg/dl Est Cr Clr Drug Dosing 23.3 ml/min Est GFR ( Amer) 28.9 Est GFR (Non-Af Amer) 25.0 BUN/Creatinine Ratio 22.0 H (10-20) Glucose 97 (70-99) mg/dl Calcium 8.0 L (8.5-10.1) mg/dl Phosphorus 4.2 D (2.5-4.9) mg/dl Magnesium 1.9 (1.8-2.4) mg/dl Total Bilirubin 1.8 H (0.2-1) mg/dl AST 24 (15-37) U/L ALT 37 (12-78) U/L Alkaline Phosphatase 79 (45-117) U/L Total Protein 5.3 L (6.4-8.2) gm/dl Albumin 2.5 L (3.4-5.0) gm/dl Globulin 2.8 (2.5-4.0) gm/dl Albumin/Globulin Ratio 0.9 (0.9-2) Lipase (73-393) U/L Blood Type Antibody Screen Crossmatch Resident Activity Tracking Resident Involvement: Resident Care Provided Care Provided: [facility] (1) Chronic kidney disease, stage 3 Chronic kidney disease stage 3 subtype: stage 3b (GFR 30-44) Qualified Code(s): N18.32 - Chronic kidney disease, stage 3b (2) Heart failure with preserved ejection fraction Heart failure chronicity: chronic Qualified Code(s): I50.32 - Chronic diastolic (congestive) heart failure (3) Anemia Anemia type: unspecified type Qualified Code(s): D64.9 - Anemia, unspecified (4) Afib Atrial fibrillation type: permanent Qualified Code(s): I48.21 - Permanent atrial fibrillation
[2020-08-08 07:17] LABS: Albumin Level 2.5 gm/dl (3.4-5.0); Creatinine Clr Calc Pharmacy 23.3 ml/min; Est GFR (African American) 28.9; Magnesium 1.9 mg/dl (1.8-2.4); Potassium 4.2 mmol/L (3.5-5.1)
[2020-08-08 07:40] LABS: Albumin Globulin Ratio 0.9 (0.9-2); Bilirubin,Total 1.8 mg/dl (0.2-1); Globulin 2.8 gm/dl (2.5-4.0); Phosphorus 4.2 mg/dl (2.5-4.9); Total Protein 5.3 gm/dl (6.4-8.2)
[2020-08-08] MEDS: AMIODARONE 200 MG TAB PO SCH ×2 (07:41→21:33)
[2020-08-08] MEDS: PANTOprazole 40 MG TAB PO SCH (07:41)
--- NOTE | 2020-08-08 07:56 | Surgery Progress Note ---
Date of Service August 08, 2020 Assessment & Plan (1) Cholecystitis: POD 2 status post laparoscopic cholecystectomy cholangiogram for acute cholecystitis The patient for the first 24 hours and minimal Jordan drainage yesterday afternoon started having some bloody drainage that is persisted His hemoglobin is dropped to 9.3 from immediate postop of 12.7 His vitals is stable not tachycardic and his blood pressure in the 100s His urine output is 500 cc or plus per shift his creatinine is peaked up as his BUN (may benefit for nephrology consult) At this point there is no indication to take the patient back to surgery if need be we we will transfuse him and this was discussed with the patient but hopefully this bleeding will stop and appears to be mostly venous in nature Cultures taken intraoperatively are pending as is the pathology report All question were answered Intraoperative findings was discussed with the patient including telling him that the previous surgery that he had as a child was near the gallbladder and required a lot of dissection The lab is pending this morning Can restart heparin drip today Admission and Anticipated Discharge Date Admission Date: August 04, 2020 Subjective Minimal abdominal discomfort tolerated some oral intake yesterday main concern he would like to move his bowels been up in a chair without discomfort Physical Exam Physical Exam: Alert coherent no distress The abdomen is benign Jordan drainage bloody nonbilious Results & Data ([facility]) Vital Signs (Past 12 Hours) Vital Signs Temp Pulse Pulse Pulse Resp BP Pulse Ox 08/08/20 07:37 36.7 C 87 20 121/79 92 08/08/20 06:04 110 H 08/08/20 04:07 36.8 C 76 20 108/73 94 08/07/20 23:48 36.6 C 54 L 18 111/73 99 PG Care Time/CCT Total # of Minutes Spent Total Time Spent with Patient: Total time spent is greater than 50% in coordination of care (as documented) at patient's floor/unit and/or counseling patient: Coding Level of Care Code None Diagnoses Cholecystitis K81.9
--- NOTE | 2020-08-08 10:19 | Cardiology Progress Note ---
Date of Service August 08, 2020 Assessment & Plan (1) Atrial flutter: Patient converted to Atrial Fibrillation with elevated V-rates. -- Continue Amiodarone 200 mg b.i.d.. -- Continue Digoxin 125 mcg every 2 days. -- IV Lopressor 5 mg every 4 hours as needed for HR > 110 bpm. -- Begin oral Lopressor 50 mg b.i.d. for better rate control. -- Heparin drip for thromboembolic prophylaxis. -- Convert to Eliquis when appropriate. (2) Acalculous cholecystitis: -- POD#1 s/p laparoscopic cholecystectomy. -- IV Zosyn. -- Post-operative anemia, Hgb 9.3 g/dl this morning. -- Monitor serial H&H. (3) Hypertension: Blood pressure has been well controlled during this admission. -- Triamterene-Hydrochlorothiazide 37.5-25 mg held, creatinine is elevated. -- Continue to monitor renal function, electrolytes. (4) Dyslipidemia: Cholesterol is well controlled according to lipid panel 08/05/20. -- Total cholesterol 109 mg/dl. -- LDL 48 mg/dl. -- HDL 53 mg/dl. -- Continue Atorvastatin 20 daily. (5) Diastolic CHF: -- LVEF 45% to 50% with MR and TR on recent echocardiogram. -- CXR yesterday confirmed bilateral pleural effusions with bibasilar consolidation, pulmonary vasculature did not appear congested. -- Received IV Lasix 60 mg x 1 dose yesterday. -- Creatinine is up to 2.26 mg/dl today from 1.87 mg/dl yesterday. -- Continue to monitor I&O's. Admission and Anticipated Discharge Date Admission Date: August 04, 2020 Subjective Mr. Rhodes is now POD#2 from a laparoscopic cholecystectomy. He has not had a bowel movement and he has been trying for the past 4 hours. He remains in A-Fib with RVR. Mental status has not returned to baseline. His oxygen requirements are less today. Patient denies any chest pain, heaviness, tightness, or pressure. He denies any SOB, orthopnea, or pnd. Surgical drain has put out > 1 liter of bloody drainage, and patient is anemic with a Hgb of 9.3 g/dl today. Review of Systems Review of Systems: All systems reviewed & are unremarkable except as noted in Subjective Physical Exam Physical Exam: SpO2 is 92% to 99% on 2 L/min via NC. GENERAL: Patient is in no acute distress. HEENT: Head is atraumatic, normocephalic. EOM's intact. Sclerae anicteric. Facies symmetric. No perioral cyanosis. NECK: No JVD. JVP is elevated. Carotid upstrokes are + 2 bilaterally. No bruits are noted. CHEST/LUNGS: Absent breath in bilateral bases. No obvious wheezes, rales, or crackles. CVS: S1 and S2 are irregularly irregular at 130 bpm with a grade 2-3/6 apical holosystolic murmur. No obvious diastolic murmurs. No gallops or rubs. PMI is nondisplaced. No lifts, heaves, or thrills. No abdominal aortic or renal bruits. ABDOMINAL EXAM: Bowel sounds are present. EXTREMITIES: No clubbing or cyanosis. No edema. Intact radial pulses bilaterally. NEUROLOGIC EXAM: Patient is awake, interactive, but confused. Speech is clear. TELEMETRY: -- Atrial fibrillation with rates of 115 to 140 bpm this morning. Results & Data ([facility]) Vital Signs (Past 12 Hours) Vital Signs Temp Pulse Pulse Pulse Resp BP Pulse Ox 08/08/20 07:37 36.7 C 87 20 121/79 92 08/08/20 06:04 110 H 08/08/20 04:07 36.8 C 76 20 108/73 94 08/07/20 23:48 36.6 C 54 L 18 111/73 99 Laboratory Results Laboratory Results - last 24 hr 08/07/20 08/07/20 08/08/20 14:47 20:11 06:28 WBC RBC Hgb 10.2 L 9.7 L Hct 29.1 L 27.4 L MCV MCH MCHC RDW Std Deviation RDW Coeff of Osito Plt Count MPV Immature Gran % (Auto) Neut % (Auto) Lymph % (Auto) Swisher % (Auto) Eos % (Auto) Baso % (Auto) Neut # (Auto) Lymph # (Auto) Swisher # (Auto) Eos # (Auto) Baso # (Auto) Immature Gran # (Auto) Sodium 134 L Potassium 4.2 Chloride 102 Carbon Dioxide 25 Anion Gap 7.0 BUN 50 H Creatinine 2.26 H D Est Cr Clr Drug Dosing 23.3 Est GFR ( Amer) 28.9 Est GFR (Non-Af Amer) 25.0 BUN/Creatinine Ratio 22.0 H Glucose 97 Calcium 8.0 L Phosphorus 4.2 D Magnesium 1.9 Total Bilirubin 1.8 H AST 24 ALT 37 Alkaline Phosphatase 79 Total Protein 5.3 L Albumin 2.5 L Globulin 2.8 Albumin/Globulin Ratio 0.9 Lipase 08/08/20 08/08/20 06:28 06:28 WBC 15.36 H RBC 2.67 L Hgb 9.3 L Hct 26.8 L MCV 100.4 H MCH 34.8 H MCHC 34.7 RDW Std Deviation 58.8 H RDW Coeff of Osito 16.4 H Plt Count 129 L MPV 10.4 Immature Gran % (Auto) 0.3 Neut % (Auto) 89.7 Lymph % (Auto) 4.6 Swisher % (Auto) 5.4 Eos % (Auto) 0.0 Baso % (Auto) 0.0 Neut # (Auto) 13.78 H Lymph # (Auto) 0.71 L Swisher # (Auto) 0.83 H Eos # (Auto) 0.00 Baso # (Auto) 0.00 Immature Gran # (Auto) 0.04 H Sodium Potassium Chloride Carbon Dioxide Anion Gap BUN Creatinine Est Cr Clr Drug Dosing Est GFR ( Amer) Est GFR (Non-Af Amer) BUN/Creatinine Ratio Glucose Calcium Phosphorus Magnesium Total Bilirubin AST ALT Alkaline Phosphatase Total Protein Albumin Globulin Albumin/Globulin Ratio Lipase 44 L Medications Administered Medications allopurinol 300 mg tablet 300 mg PO QAM tab 01/21/19 [History Confirmed 08/04/20] esomeprazole magnesium 40 mg capsule,delayed release 40 mg PO QAM cap 01/21/19 [History Confirmed 08/04/20] sildenafil 100 mg tablet 100 mg PO UD PRN tab 01/21/19 [History Confirmed 08/04/20] vit C 250 mg-vit E 90 mg-zinc 40 mg-copper 1 ex-nbyzrk-dtijcu capsule 1 tab PO QAM cap 09/20/19 [History Confirmed 08/04/20] triamterene 37.5 mg-hydrochlorothiazide 25 mg tablet 1 tab PO DAILY #90 tab 06/13/20 [Rx Confirmed 08/04/20] amiodarone 200 mg tablet 200 mg PO BID #60 tab 07/26/20 [Rx Confirmed 08/04/20] apixaban 5 mg tablet 5 mg PO BID #60 tab 07/26/20 [Rx Confirmed 08/04/20] digoxin 125 mcg (0.125 mg) tablet 125 mcg PO Q2D #45 tab 08/02/20 [Rx Confirmed 08/04/20] atorvastatin 20 mg PO UD 08/04/20 [History Confirmed 08/04/20] Home Medications Al Hydrox/Mg Hydrox/Simethicone (Aluminum/Magnesium Susp 30 Ml Udc) 15 ml PO Q6H PRN PRN Reason: heartburn Stop: 09/06/20 14:32 Last Admin: 08/07/20 14:57 Dose: 15 ml Documented by: Amiodarone HCl (Amiodarone 200 Mg Tab) 200 mg PO BID [facility] Stop: 09/03/20 20:59 Last Admin: 08/08/20 07:41 Dose: 200 mg Documented by: Bisacodyl (Bisacodyl 10 Mg Supp) 10 mg IL NOW PRN PRN Reason: Constipation Stop: 09/07/20 06:54 Last Admin: 08/08/20 07:43 Dose: 10 mg Documented by: Digoxin (Digoxin 0.125 Mg Tab) 0.125 mg PO Q2D [facility] Stop: 09/04/20 08:59 Last Admin: 08/07/20 08:39 Dose: 0.125 mg Documented by: Piperacillin Sod/Tazobactam (Sod 3.375 gm/ Dextrose) 115 mls @ 28.75 mls/hr IV Q8H [facility]; Protocol Stop: 08/14/20 14:59 Last Infusion: 08/08/20 09:48 Dose: Infused Documented by: Metoprolol Tartrate (Metoprolol Tartrate 1 Mg/Ml Vial) 5 mg IV Q4 PRN PRN Reason: Tachycardia Stop: 09/06/20 11:59 Last Admin: 08/07/20 10:30 Dose: 5 mg Documented by: Miscellaneous Information (Piperacill/Tazobac Consult Active) 1 ea N/A UD PRN PRN Reason: Consult Stop: 09/03/20 13:40 Morphine Sulfate (Morphine Sulfate 2 Mg/Ml Carp) 2 mg IV Q2H PRN PRN Reason: Chest Pain Stop: 08/18/20 13:40 Last Admin: 08/07/20 21:55 Dose: 2 mg Documented by: Morphine Sulfate (Morphine Sulfate 4 Mg/Ml 1 Ml Carp\Vial) 4 mg IV Q2H PRN PRN Reason: Pain Stop: 08/20/20 16:31 Last Admin: 08/06/20 16:40 Dose: 4 mg Documented by: Ondansetron HCl (Ondansetron Inj 2 Mg/Ml 2 Ml Vial) 4 mg IV Q6H PRN PRN Reason: Nausea Stop: 09/03/20 13:40 Pantoprazole Sodium (Pantoprazole 40 Mg Tab) 40 mg PO QAM MEJIA; Protocol Stop: 09/04/20 08:59 Last Admin: 08/08/20 07:41 Dose: 40 mg Documented by: Triamterene/Hydrochlorothiazide (Triamterene/Hctz 37.5/25mg Tab) 1 tab PO DAILY MEJIA Stop: 09/04/20 08:59 Last Admin: 08/07/20 08:40 Dose: 1 tab Documented by: PG Care Time/CCT Total # of Minutes Spent Total Time Spent with Patient: Total time spent is greater than 50% in coordina tion of care (as documented) at patient's floor/unit and/or counseling patient:30 Coding Level of Care Code 69295 Subseq Hosp Care Lvl 3 Diagnoses Atrial flutter I48.92 Acalculous cholecystitis K81.9 Hypertension I10 Dyslipidemia E78.5 Diastolic CHF I50.30
[2020-08-08] MEDS: METOPROLOL TARTRATE 50 MG TAB PO SCH ×2 (11:03→20:12)
[2020-08-08 13:14] LABS: Hematocrit (blood only) 25.1 % (42-52); Hemoglobin 8.9 g/dL (14.0-18.0)
[2020-08-08] MEDS ORDERED: SODIUM CHLORIDE 0.9% 250 ML IV PRN (15:21)
[2020-08-08 15:41] LABS: Hematocrit (blood only) 25.5 % (42-52)
[2020-08-08 16:06] LABS: Creatinine Clr Calc Pharmacy 22.6 ml/min; Est GFR (African American) 27.9; Est GFR (Non-African American) 24.1
--- NOTE | 2020-08-08 17:20 | Billing Data ---
Date of Service August 08, 2020 Coding Level of Care Code 16783 Subseq Hosp Care Lvl 3
[2020-08-08 18:13] LABS: Hematocrit (blood only) 24.1 % (42-52); Hemoglobin 8.7 g/dL (14.0-18.0)
[2020-08-08 18:30] LABS: Creatinine Clr Calc Pharmacy 23.4 ml/min; Est GFR (African American) 29.1; Est GFR (Non-African American) 25.1
[2020-08-08] MEDS ORDERED: MoRPHine SULFATE 2 MG/ML CARP IV STA (20:51)
[2020-08-09 00:27] LABS: Hematocrit (blood only) 23.3 % (42-52); Hemoglobin 8.5 g/dL (14.0-18.0)
[2020-08-09 00:44] LABS: Creatinine Clr Calc Pharmacy 25.3 ml/min; Est GFR (Non-African American) 27.6
[2020-08-09 06:04] LABS: Hematocrit (blood only) 24.3 % (42-52); Hemoglobin 8.7 g/dL (14.0-18.0)
[2020-08-09] MEDS: PIPERACILLIN/TAZOBACTAM 3.375 GM in DEXTROSE 5% 100 ML IV SCH (06:25)
--- NOTE | 2020-08-09 06:33 | Surgery Progress Note ---
Date of Service August 09, 2020 Assessment & Plan (1) Cholecystitis: POD 3 Patient was asleep when I walked in responded appropriately was having no issues had a good night and tolerated a diet well yesterday The Jordan drainage dropped significantly overnight Hemoglobin appears to be stabilized at approximately 8.5 The abdomen is completely benign he has some drainage around the Jordan drainage site the characteristic of the drainage is more serosanguineous at this time nonbloody venous in nature like it was At this point I will leave the Jordan drain in for another 24 hours and we plan to remove it then Suspect the bleeding related to congestive heart failure the patient not first 24 hours after surgery did not have any significant bleed then the output increased significantly venous in nature and then acutely stopped again overnight The characteristic of this bleed is likely related to his cardiac status POD 2 status post laparoscopic cholecystectomy cholangiogram for acute cholecystitis The patient for the first 24 hours and minimal Jordan drainage yesterday afterno on started having some bloody drainage that is persisted His hemoglobin is dropped to 9.3 from immediate postop of 12.7 His vitals is stable not tachycardic and his blood pressure in the 100s His urine output is 500 cc or plus per shift his creatinine is peaked up as his BUN (may benefit for nephrology consult) At this point there is no indication to take the patient back to surgery if need be we we will transfuse him and this was discussed with the patient but hopefully this bleeding will stop and appears to be mostly venous in nature Cultures taken intraoperatively are pending as is the pathology report All question were answered Intraoperative findings was discussed with the patient including telling him that the previous surgery that he had as a child was near the gallbladder and required a lot of dissection The lab is pending this morning Can restart heparin drip today Admission and Anticipated Discharge Date Admission Date: August 04, 2020 Results & Data ([facility]) Vital Signs (Past 12 Hours) Vital Signs Temp Pulse Pulse Resp BP Pulse Ox 08/09/20 02:50 36.7 C 84 20 105/69 97 08/09/20 01:11 91 H 08/08/20 23:55 36.4 C L 89 18 95/66 L 98 08/08/20 20:08 36.8 C 93 H 16 95/63 L 98 PG Care Time/CCT Total # of Minutes Spent Total Time Spent with Patient: Total time spent is greater than 50% in coordination of care (as documented) at patient's floor/unit and/or counseling patient: Coding Level of Care Code None Diagnoses Cholecystitis K81.9
[2020-08-09 06:35] LABS: Creatinine Clr Calc Pharmacy 25.8 ml/min; Est GFR (African American) 32.7; Est GFR (Non-African American) 28.3
[2020-08-09] MEDS: AMIODARONE 200 MG TAB PO SCH ×2 (08:47→21:26)
[2020-08-09] MEDS: METOPROLOL TARTRATE 50 MG TAB PO SCH ×2 (08:48→21:26)
[2020-08-09] MEDS: PANTOprazole 40 MG TAB PO SCH (08:48)
[2020-08-09] MEDS: DIGOXIN 0.125 MG TAB PO SCH (08:48)
--- NOTE | 2020-08-09 09:40 | Cardiology Progress Note ---
Date of Service August 09, 2020 Assessment & Plan (1) Atrial flutter: (2) Afib: (3) Diastolic CHF: (4) Pleural effusion: (5) Chronic kidney disease, stage 3: (6) Hypotension: -Patient has variably been in atrial fibrillation/atrial flutter in recent weeks, currently his rate is well controlled on amiodarone, metoprolol, and digoxin. He had some difficulty with metoprolol as an outpatient, however the perceived side effect was nausea and in fact may have been due to the acalculous cholecystitis, therefore reasonable to continue this currently. Continue current negative chronotropic regimen. -Agree with holding on anticoagulation with significant current anemia and some sanguinous drainage, likely could restart anticoagulation in the next 24 to 48 hours. -He still appears mildly hypervolemic but his BP is borderline low and his creatinine remains above baseline. In the absence of dyspnea, orthopnea, or other CHF symptoms reasonable to allow further natural volume equilibration without restarting his diuretic. However, low threshold for IV furosemide if he has any dyspneic symptoms. Once he demonstrates further stability, would restart his Dyazide for routine volume unloading/antihypertensive management. -case discussed with Dr. Juarez. Admission and Anticipated Discharge Date Admission Date: August 04, 2020 Subjective 89-year-old man known to me from outpatient cardiology status post cholecystectomy 08/06 for acalculous cholecystitis who has persistent atrial fibrillation and whose postoperative course has been notable for anemia, acute on chronic renal insufficiency, volume overload, and transient high ventricular rate. He seems to be improving clinically. He looks fairly good today, he ate a good breakfast, and he denied any dyspnea overnight or at rest currently. His blood pressure remained low normal (baseline for him) and his ventricular rate had improved and was consistently in the 80-90 bpm range overnight. He denied any specific somatic complaints at the time of my evaluation this morning. Physical Exam Physical Exam: No distress. Afebrile. Low normal BP. Pulse 84 bpm and irregular. Skin: no ecchymoses or generalized lesions. HEENT: unremarkable. Neck: Jugular venous pulse one quarter of the way to the angle of the jaw at 70 degrees, no carotid bruits. Lungs: Decreased breath sounds and dullness at the bases, otherwise clear. No wheezing or crackles. No accessory muscle use. Cardiac: irregular rhythm, 2/6 apical holosystolic murmur, no diastolic murmur or gallop. Abdomen: Nondistended. Extremities: no edema, pulses intact. Neurologic: normal affect and conversation, nonfocal. Results & Data ([facility]) Vital Signs (Past 12 Hours) Vital Signs Temp Pulse Pulse Resp BP Pulse Ox 08/09/20 08:48 73 08/09/20 07:39 97.7 F 85 20 101/67 92 08/09/20 02:50 98.1 F 84 20 105/69 97 08/09/20 01:11 91 H 08/08/20 23:55 97.5 F L 89 18 95/66 L 98 Diagnostic Findings Telemetry showed atrial fibrillation versus atrial flutter with controlled ventricular response (80-90 bpm). Hemoglobin stable at 8.7 overnight. Creatinine improving at 2.04 (2.25 last evening). PG Care Time/CCT Total # of Minutes Spent Total Time Spent with Patient: Total time spent is greater than 50% in coordination of care (as documented) at patient's floor/unit and/or counseling patient: Coding Level of Care Code 74657 Subseq Hosp Care Lvl 3 Diagnoses Atrial flutter I48.92 Afib I48.21 Atrial fibrillation type: permanent Diastolic CHF I50.30 Pleural effusion J90 Chronic kidney disease, stage 3 N18.32 Chronic kidney disease stage 3 subtype: stage 3b (GFR 30-44) Hypotension I95.9 (1) Afib Atrial fibrillation type: permanent Qualified Code(s): I48.21 - Permanent atrial fibrillation (2) Chronic kidney disease, stage 3 Chronic kidney disease stage 3 subtype: stage 3b (GFR 30-44) Qualified Code(s): N18.32 - Chronic kidney disease, stage 3b
--- NOTE | 2020-08-09 09:46 | Hospitalist Progress Note ---
Date of Service August 09, 2020 Assessment & Plan (1) Acalculous cholecystitis: Alonso Rhodes is a 89y/o M with PMH significant for heart failure with preserved ejection fraction, CKD stage III, hypertension, A. fib on Eliquis, BPH; admitted for cholecystitis. Anemia: -Hgb dropped from ~12 to ~9 from yesterday to today, with borderline hypotension -not having symptoms at this time -having high amount of sanguinous output from ZACKARY drain -continue to monitor -Type & cross ordered; will hold 2 units at this time -would initiate transfusions for Hgb <7, or for Hgb<8 with worsening Cr, or if development of symptoms from blood loss -continue to monitor ZACKARY output Acalculous cholecystitis: -POD #3 from laprascopic cholecystectomy -CTAP showed inflammatory findings consistent with acute cholecystitis. -HIDA scan performed, no evidence of common bile duct obstruction -AST/ALT/Alk phos stable and downtrending -continue ceftriaxone at this time -ZACKARY drain to come out tomorrow assuming slowing of drainage Atrial fibrillation: -At home is on digoxin, amiodarone, Eliquis. -Continue digoxin and amiodarone -hold heparin, and hold eliquis at this time given apparent blood loss -consideration of restart Eliquis tomorrow if drainage slows and drain removed Acute Kidney Injury in the setting of CKD stage III: -Baseline creatinine around 1.2 -Cr peaked at 2.33 with subsequent downtrend overnight -will continue to avoid additional diuretics at this time CHF: -CXR demonstrating increased pleural effusions -improved following 60mg Lasix IV -continue to monitor total fluid intake for avoidance of exacerbation Diet: full liquid diet Code Status: Full code DVT ppx: hold in the setting of apparent blood loss (2) Afib: (3) Elevated troponin: (4) Heart failure with preserved ejection fraction: (5) Chronic kidney disease, stage 3: (6) Hypertension: (7) Anemia: Admission and Anticipated Discharge Date Admission Date: August 04, 2020 Supervising Physician Co-Signing Physician Notes I personally examined the patient and verified all bradshaw points of history and exam, discussed case, and agree with decision making with Dr Juarez. Feeling about the same. Drainage seems to have slowed down a little. No new complaints. Wonders about post discharge planning Vitals noted, awake alert oriented pleasant no distress. HEENT normocephalic a traumatic mucous membranes moist. Lungs clear to auscultation bilaterally no rales rhonchi or wheezes no accessory muscle use good effort. Skin shows no rashes no pallor or icterus. Neuro shows no focal deficits. Acalculous cholecystitis. Now postop from cholecystectomyongoing supportive care, fortunately drain output is reducing Acute blood loss anemialikely from surgical bed given that there was extensive scar tissue. Back pressure on venous system from CHF probably did not help. Everything trending in the right direction now, hemoglobin drop has stabilized. Acute on chronic systolic CHFphysiologic stress from surgery likely --> did improve post Lasix. No further Lasix at this time. LASHAWN on CKD slowly trending down as well elevated troponin. Probably demand ischemia from cholecystitis and possibly a degree of decreased clearance from CKD afib. Rate controlled, have to hold anticoagulation in the face of bloody output in his ZACKARY drain, with drainage reducing, might be able to resume anticoagulation tomorrow HTNas relates to the acute blood loss anemia, etc., blood pressures currently on the low side. Follow closely Appearance of sleep apneathis is only immediately post surgical, continue to observe, but seems to been situational problem DVT prophylaxiswill resume anticoagulation in the near future (possibly tomorrow depending on his hemoglobin and the status of his drain) Otherwise as above Subjective Patient feels well this morning, did have slowing of his output from the ZACKARY drain overnight, with slowing to less than 700mL over 12hrs; discussed case with Cardiology, who recommended continuing to hold off on anticoagulation at this time in the continued setting of sanguinous output from ZACKARY. Would restart Eliquis following drain removal if output slows prior. Review of Systems Review of Systems: All systems reviewed & are unremarkable except as noted in Subjective Physical Exam Constitutional: WD/WN, vitals as above Eyes: PERRL, conjunctivae normal, anicteric sclerae Respiratory: normal respiratory effort, lungs clear to auscultation Cardiovascular: Rate/Rhythm: regular rate and regular rhythm Heart Sounds: no gallop, no murmur and no cardiac rub Vessels: normal peripheral pulses Gastrointestinal (Abdomen): Inspection/Auscultation: abdomen normal to inspection and normal bowel sounds Percussion/Palpation: + abdomen tender (RUQ) and abdomen soft; no guarding and abdomen not rigid Skin: no rashes, warm and dry Neurologic: PERRL, EOMI, accommodation nl, no face palsy, no dysarthria Psychiatric: Orientation: alert and oriented x 3 Results & Data Results & Data ([facility]) Vital Signs (Past 12 Hours) Vital Signs Temp Pulse Pulse Resp BP Pulse Ox 08/09/20 08:48 73 08/09/20 07:39 36.5 C 85 20 101/67 92 08/09/20 02:50 36.7 C 84 20 105/69 97 08/09/20 01:11 91 H 08/08/20 23:55 36.4 C L 89 18 95/66 L 98 Laboratory Results 08/09/20 08/09/20 08/09/20 Range/Units 11:57 11:57 05:44 Hgb 8.7 L (14.0-18.0) g/dL Hct 24.9 L (42-52) % Creatinine 1.87 H 2.04 H (0.6-1.4) mg/dl Est Cr Clr Drug Dosing 28.2 25.8 ml/min Est GFR ( Amer) 36.4 32.7 Est GFR (Non-Af Amer) 31.4 28.3 Blood Type Antibody Screen Crossmatch 08/09/20 08/09/20 08/09/20 Range/Units 05:44 00:14 00:14 Hgb 8.7 L 8.5 L (14.0-18.0) g/dL Hct 24.3 L 23.3 L (42-52) % Creatinine 2.08 H (0.6-1.4) mg/dl Est Cr Clr Drug Dosing 25.3 ml/min Est GFR ( Amer) 32.0 Est GFR (Non-Af Amer) 27.6 Blood Type Antibody Screen Crossmatch 08/08/20 08/08/20 08/08/20 Range/Units 18:02 18:02 15:27 Hgb 8.7 L (14.0-18.0) g/dL Hct 24.1 L (42-52) % Creatinine 2.25 H (0.6-1.4) mg/dl Est Cr Clr Drug Dosing 23.4 ml/min Est GFR ( Amer) 29.1 Est GFR (Non-Af Amer) 25.1 Blood Type O Positive Antibody Screen NEGATIVE Crossmatch See Detail Resident Activity Tracking Resident Involvement: Resident Care Provided Care Provided: Adult [facility] Medicine (1) Chronic kidney disease, stage 3 Chronic kidney disease stage 3 subtype: stage 3b (GFR 30-44) Qualified Code(s): N18.32 - Chronic kidney disease, stage 3b (2) Heart failure with preserved ejection fraction Heart failure chronicity: chronic Qualified Code(s): I50.32 - Chronic diastolic (congestive) heart failure (3) Anemia Anemia type: unspecified type Qualified Code(s): D64.9 - Anemia, unspecified (4) Afib Atrial fibrillation type: permanent Qualified Code(s): I48.21 - Permanent atrial fibrillation
[2020-08-09] MEDS: cefTRIAXone SODIUM 2,000 MG in DEXTROSE 5% 50 ML IV SCH (09:59)
[2020-08-09 12:04] LABS: Hematocrit (blood only) 24.9 % (42-52); Hemoglobin 8.7 g/dL (14.0-18.0)
[2020-08-09 12:28] LABS: Creatinine Clr Calc Pharmacy 28.2 ml/min; Est GFR (African American) 36.4; Est GFR (Non-African American) 31.4
[2020-08-09 18:25] LABS: Hematocrit (blood only) 24.6 % (42-52); Hemoglobin 8.7 g/dL (14.0-18.0)
--- NOTE | 2020-08-09 19:26 | Billing Data ---
Date of Service August 09, 2020 Coding Level of Care Code 18022 Subseq Hosp Care Lvl 3
[2020-08-10 06:20] LABS: Basophils # (auto) 0.01 K/uL (0-0.2); Basophils % (auto) 0.1 %; Eosinophils # (auto) 0.07 K/uL (0-0.5); Eosinophils % (auto) 0.6 %; Hematocrit (blood only) 25.5 % (42-52); Immature Granulocytes # (auto) 0.03 K/uL (0.00-0.02); Immature Granulocytes % (auto) 0.3 %; Lymphocytes # (auto) 0.88 K/uL (1.2-3.4); Lymphocytes % (auto) 7.6 %; Mean Corpuscular Hemoglobin 35.2 pg (25-34); Mean Corpuscular Hgb Conc 35.3 g/dL (32-36); Mean Corpuscular Volume 99.6 fL (80-100); Mean Platelet Volume 10.4 fL (7.4-10.4); Monocytes # (auto) 0.66 K/uL (0.11-0.59); Monocytes % (auto) 5.7 %; Neutrophils # (auto) 9.94 K/uL (1.4-6.5); Neutrophils % (auto) 85.7 %; Platelet Count 141 K/uL (130-400); RDW Standard Deviation 58.1 fL (36.4-46.3); Red Blood Count 2.56 M/uL (4.7-6.1); White Blood Count 11.59 K/uL (4.8-10.8)
[2020-08-10 06:47] LABS: BUN Creatinine Ratio 25.3 (10-20); Calcium 8.3 mg/dl (8.5-10.1); Creatinine Clr Calc Pharmacy 34.7 ml/min; Est GFR (African American) 46.7; Est GFR (Non-African American) 40.3; Potassium 3.7 mmol/L (3.5-5.1)
[2020-08-10] MEDS: PANTOprazole 40 MG TAB PO SCH (07:26)
[2020-08-10] MEDS: METOPROLOL TARTRATE 50 MG TAB PO SCH ×2 (07:26→20:24)
[2020-08-10] MEDS: AMIODARONE 200 MG TAB PO SCH ×2 (07:26→20:24)
--- NOTE | 2020-08-10 07:38 | Surgery Progress Note ---
Date of Service August 10, 2020 Assessment & Plan (1) Cholecystitis: POD#4 laparoscopic cholecystectomy Patient feeling well. Abdominal exam is benign, wounds look c/d/i Hbg stable at 9. ZACKARY drain output decreased and is serosangenous in character Will remove ZACKARY drain today Continue diet as tolerates Micro returned + e.coli, WBC 11 today, can consider completing a course of abx for this We are okay with resuming Eliquis tomorrow (08/11/20) Pt seen and examined with Dr. Tosha Alcantara [facility] covering for the weekend Admission and Anticipated Discharge Date Admission Date: August 04, 2020 Subjective Patient states he is feeling well today. Tolerating a diet, but not eating much because says the food is not appetizing. Pain is controlled. Physical Exam Physical Exam: awake/alert Constitutional: no acute distress Respiratory: normal respiratory effort Gastrointestinal (Abdomen): Inspection/Auscultation: + abdominal surgical incision (c/d/i with steri-strips overtop ) and + abdominal surgical drain present (25cc overnight, serosang.); abdomen not distended Percussion/Palpation: abdomen soft; abdomen nontender Results & Data ([facility]) Vital Signs (Past 12 Hours) Vital Signs Temp Pulse Pulse Resp BP Pulse Ox 08/10/20 07:25 36.5 C 93 H 18 111/74 99 08/10/20 03:34 36.4 C L 90 20 113/72 95 08/10/20 02:59 86 08/09/20 22:40 36.3 C L 84 18 103/69 99 08/09/20 21:23 87 103/60 PG Care Time/CCT Total # of Minutes Spent Total Time Spent with Patient: Total time spent is greater than 50% in coordination of care (as documented) at patient's floor/unit and/or counseling patient: Coding Level of Care Code None Diagnoses Cholecystitis K81.9
[2020-08-10] MEDS ORDERED: COUGH DROP (SUGAR FREE) LOZ 24 LOZ/1 BOX BUCCAL PRN (09:39)
[2020-08-10] MEDS: cefTRIAXone SODIUM 2,000 MG in DEXTROSE 5% 50 ML IV SCH (09:46)
[2020-08-10] MEDS ORDERED: HALOPERIDOL LACTATE 5 MG/ML 1 ML VIAL IM STA (13:23)
[2020-08-10] MEDS ORDERED: HALOPERIDOL LACTATE 5 MG/ML 1 ML VIAL ONE (13:25)
[2020-08-10] MEDS ORDERED: HALOPERIDOL LACTATE 5 MG/ML 1 ML VIAL IM PRN ×2 (13:25→13:44)
--- NOTE | 2020-08-10 13:38 | Cardiology Progress Note ---
Date of Service August 10, 2020 Assessment & Plan (1) Atrial dysrhythmia: -currently in atrial flutter with a controlled ventricular response. -has demonstrated atrial fibrillation in the past. -continue amiodarone, metoprolol, and digoxin. -surgery has recommended restarting Eliquis tomorrow. (2) Diastolic CHF: -appears euvolemic at this time. -was able to sleep completely flat last evening. -diuretic currently on hold. -LVEF 45-50% on current echocardiogram. (3) Acalculous cholecystitis: -s/p laparoscopic cholecystectomy with cholangiogram and lysis of adhesions. -management per surgical team. Admission and Anticipated Discharge Date Admission Date: August 04, 2020 Subjective The patient is resting comfortably in bed without complaints of chest pain, dyspnea, or palpitations. Physical Exam Physical Exam: In general is well well nourished male in no acute distress. HEENT exam is negative. Neck is supple with full carotid upstrokes. No carotid bruits. Jugular venous pressure is flat at 90. Cardiovascular exam reveals a regular rhythm with a 2/6 basal systolic ejection murmur. No S3. Lungs are clear without rales, rhonchi or wheezes. Abdomen is soft. Extremities reveal 1+ pretibial edema bilaterally. Results & Data ([facility]) Vital Signs (Past 12 Hours) Vital Signs Temp Pulse Pulse Resp BP BP Pulse Ox 08/10/20 11:20 36.5 C 72 18 101/66 96 08/10/20 07:25 36.5 C 93 H 18 111/74 99 08/10/20 03:34 36.4 C L 90 20 113/72 95 08/10/20 02:59 86 Diagnostic Findings patient monitor notes atrial flutter with a ventricular response in the 80s and 90s. PG Care Time/CCT Total # of Minutes Spent Total Time Spent with Patient: Total time spent is greater than 50% in coordination of care (as documented) at patient's floor/unit and/or counseling patient: Coding Level of Care Code 18057 Subseq Hosp Care Lvl 3 Diagnoses Atrial dysrhythmia I49.8 Diastolic CHF I50.30 Acalculous cholecystitis K81.9
--- NOTE | 2020-08-10 14:14 | Hospitalist Progress Note ---
Date of Service August 10, 2020 Assessment & Plan (1) Acalculous cholecystitis: Alonso Rhodes is a 89y/o M with PMH significant for heart failure with preserved ejection fraction, CKD stage III, hypertension, A. fib on Eliquis, BPH; admitted for cholecystitis. Anemia: -Hgb improved from 8.7 to 9 from yesterday to today, with improved BPs -not having symptoms at this time -Sx team with removal of ZACKARY drain / that was source of blood loss -continue to monitor -Type & cross ordered; will hold 2 units at this time -would initiate transfusions for Hgb <7, or for Hgb<8 with worsening Cr, or if development of symptoms from blood loss Acalculous cholecystitis: -POD #4 from laprascopic cholecystectomy -CTAP showed inflammatory findings consistent with acute cholecystitis. -HIDA scan performed, no evidence of common bile duct obstruction -AST/ALT/Alk phos stable and downtrending -continue ceftriaxone at this time. Micro returned + e.coli -ZACKARY drain removed / after output decreased and was serosangenous Atrial fibrillation: -At home is on digoxin, amiodarone, Eliquis. -Continue digoxin and amiodarone. Metoprolol added -will restart Eliquis tomorrow per sx recs Acute Kidney Injury in the setting of CKD stage III: -Baseline creatinine around 1.2 -Cr peaked at 2.33 with subsequent downtrend now 1.52 -will continue to avoid additional diuretics at this time Diastolic CHF: -CXR demonstrating increased pleural effusions 08/07. Appears euvolemic at this time. -improved following 60mg Lasix IV 08/09, on hold -continue to monitor total fluid intake for avoidance of exacerbation -LVEF 45-50% on current echocardiogram Delirium -Pt with episode of acute delirium/AMS 08/10 with persecutory thoughts wanting to leave AMA. Able to be redireced eventually -PRN IM Haldol 5 mg ordered for severe agitation and PRN 1:1 placed Diet: full liquid diet Code Status: Full code DVT ppx: Restart Eliquis tomorrow Dispo: Remains on [facility]. [facility] medically [facility]. Admission and Anticipated Discharge Date Admission Date: August 04, 2020 Supervising Physician Co-Signing Physician Notes I personally examined the patient and verified all bradshaw points of history and exam, discussed case, and agree with decision making with Dr Ceja. sleeping comfortably when i first go in the room - have extensive discussion with his roommate, for home I am also caring. Even after that discussion as I leave the room patient still soundly sleeping. Called to revisit later as he is agitated and threatening to leave. He is expressing an understanding of where he has, but has a degree of paranoia about what is going on, noting that we have a "scheme" going on. When asked to further define the scheme, he said that we are acting like we are nice people trying to take care of him, and then whenever asked to clarify further he started speaking in sentences that almost made sense but had a lot of undefined pronouns. He was progressively more agitated, very hard to distract, and at one point was even trying to leave the room. Eventually he sat back down and hung his head. Vitals noted, awake alert oriented pleasant no distress. HEENT normocephalic atraumatic breathing unlabored, no conversational dyspnea. Obviously with his agitation I was not able to formally examine him, and was not able to examine his abdomen. Showed no focal neuro deficits, skin with no pallor. Agitated deliriumlikely because of his age, acute comorbidities, and time spent in the hospital. Tried to offer reassurance and support, this did not work, tried to redirect, this did not work, but fortunately he did calm down of his own accord. Later whenever I walked past the room family was visiting and he appeared calm Acalculous cholecystitis. Now postop from cholecystectomyongoing supportive care, drain output reduced and was removed this morning Acute blood loss anemialikely from surgical bed given that there was extensive scar tissue. Back pressure on venous system from CHF probably did not help. Everything trending in the right direction now, hemoglobin drop has stabilized. Drain is out. We will watch into tomorrow before resuming anticoagulation Acute on chronic systolic CHFphysiologic stress from surgery likely --> did improve post Lasix. No further Lasix at this time. LASHAWN on CKD slowly trending down as well elevated troponin. Probably demand ischemia from cholecystitis and possibly a degree of decreased clearance from CKD afib. Rate controlled, had to hold anticoagulation in the face of bloody output in his ZACKARY drain, now drain is out, will follow hemoglobin into tomorrow, and as long as is stable will resume anticoagulation tomorrow HTNblood pressures overall acceptable Appearance of sleep apneathis is only immediately post surgical, continue to observe, but seems to been situational problem DVT prophylaxiswill resume anticoagulation tomorrow as long as his hemoglobin stays stable Otherwise as above Subjective This AM pt very pleasant and seen after ZACKARY removed. Tolerating PO, minimal pain. Feeling good overall, no additional abd complaints. Later on in afternoon ~1PM notified by RN that pt with increased agitation and wanting to leave hospital. Appeared 2/2 delirium. Pt was eventually able to be redirected for the most part and redirected back into bed. Review of Systems Review of Systems: All systems reviewed & are unremarkable except as noted in HPI & below Physical Exam Constitutional: WD/WN, vitals as above Eyes: PERRL, conjunctivae normal, anicteric sclerae ENMT: external ear and nose normal, oropharynx normal Respiratory: normal respiratory effort, lungs clear to auscultation Cardiovascular: Rate/Rhythm: regular rate and regular rhythm Heart Sounds: + murmur Gastrointestinal (Abdomen): normal bowel sounds, soft, nontender, no hepatosplenomegaly Inspection/Auscultation: + abdominal surgical incision (abdominal surgical incision CDI ) Skin: no rashes, warm and dry Psychiatric: A+Ox3, euthymic affect Results & Data Results & Data ([facility]) Vital Signs (Past 12 Hours) Vital Signs Temp Pulse Pulse Resp BP BP Pulse Ox 08/10/20 11:20 36.5 C 72 18 101/66 96 08/10/20 07:25 36.5 C 93 H 18 111/74 99 08/10/20 03:34 36.4 C L 90 20 113/72 95 08/10/20 02:59 86 Laboratory Results Laboratory Results - last 24 hr 08/09/20 08/10/20 08/10/20 17:54 05:46 05:46 WBC 11.59 H RBC 2.56 L Hgb 8.7 L 9.0 L Hct 24.6 L 25.5 L MCV 99.6 MCH 35.2 H MCHC 35.3 RDW Std Deviation 58.1 H RDW Coeff of Osito 16.0 H Plt Count 141 MPV 10.4 Immature Gran % (Auto) 0.3 Neut % (Auto) 85.7 Lymph % (Auto) 7.6 [place] % (Auto) 5.7 Eos % (Auto) 0.6 Baso % (Auto) 0.1 Neut # (Auto) 9.94 H Lymph # (Auto) 0.88 L [place] # (Auto) 0.66 H Eos # (Auto) 0.07 Baso # (Auto) 0.01 Immature Gran # (Auto) 0.03 H Sodium 133 L Potassium 3.7 Chloride 101 Carbon Dioxide 25 Anion Gap 6.0 BUN 38 H Creatinine 1.52 H D Est Cr Clr Drug Dosing 34.7 Est GFR ( Amer) 46.7 Est GFR (Non-Af Amer) 40.3 BUN/Creatinine Ratio 25.3 H Glucose 75 Calcium 8.3 L Medications Administered Current Inpatient Medications Acetaminophen (Acetaminophen 325 Mg Tab) 650 mg PO Q4H PRN PRN Reason: mild pain Stop: 09/09/20 07:32 Al Hydrox/Mg Hydrox/Simethicone (Aluminum/Magnesium Susp 30 Ml Udc) 15 ml PO Q6H PRN PRN Reason: heartburn Stop: 09/06/20 14:32 Last Admin: 08/07/20 14:57 Dose: 15 ml Documented by: Amiodarone HCl (Amiodarone 200 Mg Tab) 200 mg PO BID [facility] Stop: 09/03/20 20:59 Last Admin: 08/10/20 07:26 Dose: 200 mg Documented by: Bisacodyl (Bisacodyl 10 Mg Supp) 10 mg NC NOW PRN PRN Reason: Constipation Stop: 09/07/20 06:54 Last Admin: 08/08/20 07:43 Dose: 10 mg Documented by: Digoxin (Digoxin 0.125 Mg Tab) 0.125 mg PO Q2D [facility] Stop: 09/04/20 08:59 Last Admin: 08/09/20 08:48 Dose: 0.125 mg Documented by: Haloperidol Lactate (Haloperidol Lactate 5 Mg/Ml 1 Ml Vial) 5 mg IM Q12H PRN PRN Reason: extreme agitation Stop: 09/09/20 13:24 Ceftriaxone Sodium 2,000 mg/ (Dextrose) 70 mls @ 100 mls/hr IV Q24H [facility]; Protocol Stop: 08/19/20 09:59 Last Infusion: 08/10/20 10:29 Dose: Infused Documented by: Menthol (Cough Drop (Sugar Free) Kimber 24 Kimber/1 Box) 1 kimber BUCCAL PRN PRN PRN Reason: Sore Throat Stop: 09/09/20 09:38 Metoprolol Tartrate (Metoprolol Tartrate 1 Mg/Ml Vial) 5 mg IV Q4 PRN PRN Reason: Tachycardia Stop: 09/06/20 11:59 Last Admin: 08/07/20 10:30 Dose: 5 mg Documented by: Metoprolol Tartrate (Metoprolol Tartrate 50 Mg Tab) 50 mg PO BID [facility] Stop: 09/07/20 10:29 Last Admin: 08/10/20 07:26 Dose: 50 mg Documented by: Ondansetron HCl (Ondansetron Inj 2 Mg/Ml 2 Ml Vial) 4 mg IV Q6H PRN PRN Reason: Nausea Stop: 09/03/20 13:40 Pantoprazole Sodium (Pantoprazole 40 Mg Tab) 40 mg PO QAM [facility]; Protocol Stop: 09/04/20 08:59 Last Admin: 08/10/20 07:26 Dose: 40 mg Documented by: Triamterene/Hydrochlorothiazide (Triamterene/Hctz 37.5/25mg Tab) 1 tab PO DAILY [facility] Stop: 09/04/20 08:59 Last Admin: 08/07/20 08:40 Dose: 1 tab Documented by: Resident Activity Tracking Resident Involvement: Resident Care Provided Care Provided: Adult Hospital Medicine
--- NOTE | 2020-08-10 18:18 | Billing Data ---
Date of Service August 10, 2020 Coding Level of Care Code 89565 Subseq Hosp Care Lvl 3
[2020-08-11 07:54] LABS: Eosinophils # (auto) 0.05 K/uL (0-0.5); Eosinophils % (auto) 0.6 %; Hematocrit (blood only) 24.9 % (42-52); Hemoglobin 8.8 g/dL (14.0-18.0); Immature Granulocytes # (auto) 0.04 K/uL (0.00-0.02); Immature Granulocytes % (auto) 0.5 %; Lymphocytes # (auto) 0.79 K/uL (1.2-3.4); Lymphocytes % (auto) 9.2 %; Mean Corpuscular Hemoglobin 34.6 pg (25-34); Mean Corpuscular Hgb Conc 35.3 g/dL (32-36); Mean Platelet Volume 9.7 fL (7.4-10.4); Monocytes # (auto) 0.81 K/uL (0.11-0.59); Monocytes % (auto) 9.5 %; Neutrophils # (auto) 6.87 K/uL (1.4-6.5); Neutrophils % (auto) 80.2 %; Platelet Count 158 K/uL (130-400); RDW Coefficient of Variation 15.5 % (11.5-14.5); Red Blood Count 2.54 M/uL (4.7-6.1); White Blood Count 8.56 K/uL (4.8-10.8)
[2020-08-11 08:14] LABS: BUN Creatinine Ratio 25.4 (10-20); Calcium 7.8 mg/dl (8.5-10.1); Creatinine Clr Calc Pharmacy 49.3 ml/min; Est GFR (African American) 71.5; Est GFR (Non-African American) 61.7; Potassium 3.4 mmol/L (3.5-5.1)
[2020-08-11] MEDS: AMIODARONE 200 MG TAB PO SCH ×2 (08:44→20:09)
[2020-08-11] MEDS: METOPROLOL TARTRATE 50 MG TAB PO SCH ×2 (08:45→20:10)
[2020-08-11] MEDS: DIGOXIN 0.125 MG TAB PO SCH (08:46)
[2020-08-11] MEDS: PANTOprazole 40 MG TAB PO SCH (08:46)
[2020-08-11] MEDS: cefTRIAXone SODIUM 2,000 MG in DEXTROSE 5% 50 ML IV SCH (08:54)
--- NOTE | 2020-08-11 10:59 | Cardiology Progress Note ---
Date of Service August 11, 2020 Assessment & Plan (1) Atrial dysrhythmia: (2) Acute delirium: (3) Diastolic CHF: (4) Acalculous cholecystitis: (5) Chronic kidney disease, stage 3: Clinically improving, rhythm either atrial fibrillation or atrial flutter with good rate control (80 to 90 bpm) on current medical regimen. Agree with restarting apixaban for anticoagulation/thromboembolic prophylaxis with atrial dysrhythmia. Volume status appears favorable without the need for routine diuretic at this time. Renal function has returned to baseline. His affect was appropriate at the time of my evaluation, but he was quite confused yesterday. Certainly, his intermittent confusion will impact decisions regarding temporary placement versus returning home. Admission and Anticipated Discharge Date Admission Date: August 04, 2020 Subjective 89-year-old man known to me from outpatient cardiology status post cholecystectomy 08/06 for acalculous cholecystitis who has persistent atrial fibrillation and whose postoperative course has been notable for anemia, acute on chronic renal insufficiency, volume overload, atrial fibrillation with high ventricular rate and transient delirium. He seems to be improving clinically. He looks fairly good today, and was no longer confused this morning. He realizes that he was "out of touch with reality" for a period of time yesterday. He is off oxygen denies any dyspnea. He notes no chest pain or subjective palpitations. His blood pressure remained low normal (baseline for him) and his ventricular rate had improved and was consistently in the 80-90 bpm range overnight. He denied any specific somatic complaints at the time of my evaluation this morning. Physical Exam Physical Exam: No distress. Afebrile. Low normal BP. Pulse 88 bpm and irregular. Skin: no ecchymoses or generalized lesions. HEENT: unremarkable. Neck: Jugular venous pulse at the clavicle at 70 degrees, no carotid bruits. Lungs: Decreased breath sounds and dullness at the bases, otherwise clear. No wheezing or crackles. No accessory muscle use. Cardiac: irregular rhythm, 2/6 apical holosystolic murmur, no diastolic murmur or gallop. Abdomen: Nondistended. Extremities: no edema, pulses intact. Neurologic: normal affect and conversation today, nonfocal. Results & Data ([facility]) Vital Signs (Past 12 Hours) Vital Signs Temp Pulse Pulse Resp BP Pulse Ox 08/11/20 08:46 91 H 08/11/20 07:42 98.1 F 91 H 20 103/68 93 08/11/20 04:15 98.2 F 95 H 16 120/63 97 08/10/20 23:00 92 H Laboratory Results Potassium 3.4. Creatinine 1.07. PG Care Time/CCT Total # of Minutes Spent Total Time Spent with Patient: Total time spent is greater than 50% in coordination of care (as documented) at patient's floor/unit and/or counseling patient: Coding Level of Care Code 92477 Subseq Hosp Care Lvl 3 Diagnoses Atrial dysrhythmia I49.8 Acute delirium R41.0 Diastolic CHF I50.30 Acalculous cholecystitis K81.9 Chronic kidney disease, stage 3 N18.32 Chronic kidney disease stage 3 subtype: stage 3b (GFR 30-44) (1) Chronic kidney disease, stage 3 Chronic kidney disease stage 3 subtype: stage 3b (GFR 30-44) Qualified Code(s): N18.32 - Chronic kidney disease, stage 3b
--- NOTE | 2020-08-11 11:14 | Surgery Progress Note ---
Date of Service August 11, 2020 Assessment & Plan (1) Cholecystitis: Postoperative day #5 status post laparoscopic cholecystectomy Doing well Tolerating diet H&H is stable Continue IV antibiotics Continue analgesics Increase activity Admission and Anticipated Discharge Date Admission Date: August 04, 2020 Subjective Postoperative day #5 status post laparoscopic cholecystectomy Tolerated diet Denies nausea and vomiting H&H stable Appreciate cardiology input Physical Exam Constitutional: no acute distress Gastrointestinal (Abdomen): Inspection/Auscultation: normal bowel sounds and + abdominal surgical incision (All are clean, dry and intact); abdomen not distended Percussion/Palpation: + abdomen tender (Minimal incisional) and abdomen soft Results & Data ([facility]) Vital Signs (Past 12 Hours) Vital Signs Temp Pulse Pulse Resp BP Pulse Ox 08/11/20 08:46 91 H 08/11/20 07:42 36.7 C 91 H 20 103/68 93 08/11/20 04:15 36.8 C 95 H 16 120/63 97 Laboratory Results 08/11/20 08/11/20 Range/Units 07:45 07:45 WBC 8.56 (4.8-10.8) K/uL RBC 2.54 L (4.7-6.1) M/uL Hgb 8.8 L (14.0-18.0) g/dL Hct 24.9 L (42-52) % MCV 98.0 (80-100) fL MCH 34.6 H (25-34) pg MCHC 35.3 (32-36) g/dL RDW Std Deviation 55.0 H (36.4-46.3) fL RDW Coeff of Osito 15.5 H (11.5-14.5) % Plt Count 158 (130-400) K/uL MPV 9.7 (7.4-10.4) fL Immature Gran % (Auto) 0.5 % Neut % (Auto) 80.2 % Lymph % (Auto) 9.2 % [place] % (Auto) 9.5 % Eos % (Auto) 0.6 % Baso % (Auto) 0.0 % Neut # (Auto) 6.87 H (1.4-6.5) K/uL Lymph # (Auto) 0.79 L (1.2-3.4) K/uL [place] # (Auto) 0.81 H (0.11-0.59) K/uL Eos # (Auto) 0.05 (0-0.5) K/uL Baso # (Auto) 0.00 (0-0.2) K/uL Immature Gran # (Auto) 0.04 H (0.00-0.02) K/uL Sodium 135 L (136-145) mmol/L Potassium 3.4 L (3.5-5.1) mmol/L Chloride 103 (98-107) mmol/L Carbon Dioxide 26 (21-32) mmol/L Anion Gap 6.0 (3-11) BUN 27 H (7-18) mg/dl Creatinine 1.07 (0.6-1.4) mg/dl Est Cr Clr Drug Dosing 49.3 ml/min Est GFR ( Amer) 71.5 Est GFR (Non-Af Amer) 61.7 BUN/Creatinine Ratio 25.4 H (10-20) Glucose 90 (70-99) mg/dl Calcium 7.8 L (8.5-10.1) mg/dl
[2020-08-11] MEDS: APIXABAN 5 MG TABLET PO SCH ×2 (11:41→20:09)
--- NOTE | 2020-08-11 12:51 | Hospitalist Progress Note ---
Date of Service August 11, 2020 Assessment & Plan (1) Acalculous cholecystitis: Alonso Rhodes is a 89y/o M with PMH significant for heart failure with preserved ejection fraction, CKD stage III, hypertension, A. fib on Eliquis, BPH; admitted for cholecystitis. Anemia: -Hgb stabilized now. Today 8.8, with stable BPs -not having symptoms at this time -Sx team with removal of ZACKARY drain / that was source of blood loss -continue to monitor -Type & cross ordered; will hold 2 units at this time -would initiate transfusions for Hgb <7, or for Hgb<8 with worsening Cr, or if development of symptoms from blood loss Acalculous cholecystitis: -POD #5 from laparoscopic cholecystectomy -CTAP showed inflammatory findings consistent with acute cholecystitis. -HIDA scan performed, no evidence of common bile duct obstruction -AST/ALT/Alk phos stable and downtrending -continue ceftriaxone at this time. Micro returned + e.coli -ZACKARY drain removed / after output decreased and was serosangenous Atrial fibrillation: -At home is on digoxin, amiodarone, Eliquis. -Continue digoxin and amiodarone. Metoprolol added -Restart Eliquis 08/11 Acute Kidney Injury in the setting of CKD stage III: -Baseline creatinine around 1.2 -Cr peaked at 2.33 with subsequent downtrend now normal -will continue to avoid additional diuretics at this time Diastolic CHF: -CXR demonstrating increased pleural effusions 08/07. Appears euvolemic at this time. -improved following 60mg Lasix IV 08/09, on hold -continue to monitor total fluid intake for avoidance of exacerbation -LVEF 45-50% on current echocardiogram Delirium -Pt with episode of acute delirium/AMS 08/10 with persecutory thoughts wanting to leave AMA. Able to be redireced eventually -PRN IM Haldol 5 mg ordered for severe agitation and PRN 1:1 placed Diet: full liquid diet Code Status: Full code DVT ppx: Restart Eliquis tomorrow Dispo: Remains on [facility]. Plan for [facility], referral made to [facility], pending insurance auth Admission and Anticipated Discharge Date Admission Date: August 04, 2020 Supervising Physician Co-Signing Physician Notes I personally examined the patient and verified all bradshaw points of history and exam, discussed case, and agree with decision making with Dr Ceja. Feeling better, mentally seems more clear. No significant complaints, no abdominal pain, eating well. Vitals noted, awake alert oriented pleasant no distress. HEENT normocephalic atraumatic breathing unlabored, no accessory muscle use good effort. Skin shows no rashes no pallor or icterus. No focal neuro deficits. Agitated deliriumlikely because of his age, acute comorbidities, and time spent in the hospital. Fortunately appears much more lucid today. Supportive care. Acalculous cholecystitis. Now postop from cholecystectomyongoing supportive care, drain removed on 08/10, no apparent worsening. Continue ceftriaxone for E. coli found in peritoneal fluid Acute blood loss anemialikely from surgical bed given that there was extensive scar tissue. Back pressure on venous system from CHF probably did not help. Everything trending in the right direction now, hemoglobin drop has stabilized. Drain is out. Resume apixaban today, follow-up hemoglobin tomorrow. Acute on chronic systolic CHFphysiologic stress from surgery likely --> did improve post Lasix. No further Lasix at this time. Breathing room air LASHAWN on CKD improved nicely over the last day as well elevated troponin. Probably demand ischemia from cholecystitis and possibly a degree of decreased clearance from CKD afib. Rate controlled, had to hold anticoagulation in the face of bloody output in his ZACKARY drain, now drain is out, resuming anticoagulation today HTNblood pressures overall acceptable, albeit slightly low Appearance of sleep apneathis is only immediately post surgical, continue to observe, but seems to been situational problem DVT prophylaxisresuming apixaban Otherwise as above Subjective Patient seen this morning and was very clear in line of thinking as opposed to yesterday's and apparently last night episodes of delirium. Patient with no concerns or complaints. Denies any abdominal pain. Tolerating p.o. intake. Denies nausea vomiting. No other acute overnight events. Review of Systems Review of Systems: All systems reviewed & are unremarkable except as noted in HPI & below Physical Exam Constitutional: WD/WN, vitals as above Eyes: PERRL, conjunctivae normal, anicteric sclerae ENMT: external ear and nose normal, oropharynx normal Respiratory: normal respiratory effort, lungs clear to auscultation Cardiovascular: Rate/Rhythm: regular rate and regular rhythm Heart Sounds: + murmur Gastrointestinal (Abdomen): normal bowel sounds, soft, nontender, no hepatosplenomegaly Inspection/Auscultation: + abdominal surgical incision (abdominal surgical incision CDI ) Skin: no rashes, warm and dry Psychiatric: A+Ox3, euthymic affect Results & Data Results & Data ([facility]) Vital Signs (Past 12 Hours) Vital Signs Temp Pulse Pulse Resp BP Pulse Ox 08/11/20 11:12 36.8 C 91 H 18 94/57 L 94 08/11/20 08:46 91 H 08/11/20 07:42 36.7 C 91 H 20 103/68 93 08/11/20 04:15 36.8 C 95 H 16 120/63 97 Laboratory Results Laboratory Results - last 24 hr 08/11/20 08/11/20 07:45 07:45 WBC 8.56 RBC 2.54 L Hgb 8.8 L Hct 24.9 L MCV 98.0 MCH 34.6 H MCHC 35.3 RDW Std Deviation 55.0 H RDW Coeff of Osito 15.5 H Plt Count 158 MPV 9.7 Immature Gran % (Auto) 0.5 Neut % (Auto) 80.2 Lymph % (Auto) 9.2 [place] % (Auto) 9.5 Eos % (Auto) 0.6 Baso % (Auto) 0.0 Neut # (Auto) 6.87 H Lymph # (Auto) 0.79 L [place] # (Auto) 0.81 H Eos # (Auto) 0.05 Baso # (Auto) 0.00 Immature Gran # (Auto) 0.04 H Sodium 135 L Potassium 3.4 L Chloride 103 Carbon Dioxide 26 Anion Gap 6.0 BUN 27 H Creatinine 1.07 Est Cr Clr Drug Dosing 49.3 Est GFR ( Amer) 71.5 Est GFR (Non-Af Amer) 61.7 BUN/Creatinine Ratio 25.4 H Glucose 90 Calcium 7.8 L Medications Administered Current Inpatient Medications Acetaminophen (Acetaminophen 325 Mg Tab) 650 mg PO Q4H PRN PRN Reason: mild pain Stop: 09/09/20 07:32 Al Hydrox/Mg Hydrox/Simethicone (Aluminum/Magnesium Susp 30 Ml Udc) 15 ml PO Q6H PRN PRN Reason: heartburn Stop: 09/06/20 14:32 Last Admin: 08/07/20 14:57 Dose: 15 ml Documented by: Amiodarone HCl (Amiodarone 200 Mg Tab) 200 mg PO BID [facility] Stop: 09/03/20 20:59 Last Admin: 08/11/20 08:44 Dose: 200 mg Documented by: Apixaban (Apixaban 5 Mg Tablet) 5 mg PO BID [facility] Stop: 09/10/20 10:14 Last Admin: 08/11/20 11:41 Dose: 5 mg Documented by: Bisacodyl (Bisacodyl 10 Mg Supp) [address] NOW PRN PRN Reason: Constipation Stop: 09/07/20 06:54 Last Admin: 08/08/20 07:43 Dose: 10 mg Documented by: Digoxin (Digoxin 0.125 Mg Tab) 0.125 mg PO Q2D [facility] Stop: 09/04/20 08:59 Last Admin: 08/11/20 08:46 Dose: 0.125 mg Documented by: Haloperidol Lactate (Haloperidol Lactate 5 Mg/Ml 1 Ml Vial) 5 mg IM Q12H PRN PRN Reason: extreme agitation Stop: 09/09/20 13:24 Ceftriaxone Sodium 2,000 mg/ (Dextrose) 70 mls @ 100 mls/hr IV Q24H [facility]; Protocol Stop: 08/19/20 09:59 Last Infusion: 08/11/20 09:42 Dose: Infused Documented by: Menthol (Cough Drop (Sugar Free) Kimber 24 Kimber/1 Box) 1 kimber BUCCAL PRN PRN PRN Reason: Sore Throat Stop: 09/09/20 09:38 Metoprolol Tartrate (Metoprolol Tartrate 1 Mg/Ml Vial) 5 mg IV Q4 PRN PRN Reason: Tachycardia Stop: 09/06/20 11:59 Last Admin: 08/07/20 10:30 Dose: 5 mg Documented by: Metoprolol Tartrate (Metoprolol Tartrate 50 Mg Tab) 50 mg PO BID [facility] Stop: 09/07/20 10:29 Last Admin: 08/11/20 08:45 Dose: 50 mg Documented by: Ondansetron HCl (Ondansetron Inj 2 Mg/Ml 2 Ml Vial) 4 mg IV Q6H PRN PRN Reason: Nausea Stop: 09/03/20 13:40 Pantoprazole Sodium (Pantoprazole 40 Mg Tab) 40 mg PO QAM [facility]; Protocol Stop: 09/04/20 08:59 Last Admin: 08/11/20 08:46 Dose: 40 mg Documented by: Triamterene/Hydrochlorothiazide (Triamterene/Hctz 37.5/25mg Tab) 1 tab PO DAILY [facility] Stop: 09/04/20 08:59 Last Admin: 08/07/20 08:40 Dose: 1 tab Documented by: Resident Activity Tracking Resident Involvement: Resident Care Provided Care Provided: Adult Hospital Medicine
--- NOTE | 2020-08-11 15:00 | Billing Data ---
Date of Service August 11, 2020 Coding Level of Care Code 42039 Subseq Hosp Care Lvl 3
[2020-08-12 05:52] LABS: Basophils # (auto) 0.01 K/uL (0-0.2); Basophils % (auto) 0.1 %; Eosinophils # (auto) 0.04 K/uL (0-0.5); Eosinophils % (auto) 0.4 %; Hematocrit (blood only) 26.8 % (42-52); Immature Granulocytes # (auto) 0.06 K/uL (0.00-0.02); Immature Granulocytes % (auto) 0.6 %; Lymphocytes # (auto) 1.13 K/uL (1.2-3.4); Lymphocytes % (auto) 11.6 %; Mean Corpuscular Hemoglobin 33.6 pg (25-34); Mean Corpuscular Hgb Conc 33.6 g/dL (32-36); Mean Platelet Volume 9.4 fL (7.4-10.4); Monocytes # (auto) 0.87 K/uL (0.11-0.59); Monocytes % (auto) 8.9 %; Neutrophils # (auto) 7.62 K/uL (1.4-6.5); Neutrophils % (auto) 78.4 %; Platelet Count 184 K/uL (130-400); RDW Coefficient of Variation 15.7 % (11.5-14.5); RDW Standard Deviation 57.1 fL (36.4-46.3); Red Blood Count 2.68 M/uL (4.7-6.1); White Blood Count 9.73 K/uL (4.8-10.8)
[2020-08-12 06:16] LABS: Calcium 7.8 mg/dl (8.5-10.1); Creatinine Clr Calc Pharmacy 52.2 ml/min; Est GFR (African American) 76.6; Est GFR (Non-African American) 66.1; Potassium 3.4 mmol/L (3.5-5.1)
[2020-08-12] MEDS: PANTOprazole 40 MG TAB PO SCH (08:42)
[2020-08-12] MEDS ORDERED: POTASSIUM CHLORIDE CRTAB 20 MEQ TABCR PO STA (08:42)
[2020-08-12] MEDS: METOPROLOL TARTRATE 50 MG TAB PO SCH ×2 (08:43→20:31)
[2020-08-12] MEDS: AMIODARONE 200 MG TAB PO SCH ×2 (08:45→20:30)
[2020-08-12] MEDS: APIXABAN 5 MG TABLET PO SCH ×2 (08:45→20:30)
[2020-08-12] MEDS: cefTRIAXone SODIUM 2,000 MG in DEXTROSE 5% 50 ML IV SCH (10:46)
--- NOTE | 2020-08-12 11:21 | Surgery Progress Note ---
Date of Service August 12, 2020 Assessment & Plan (1) Cholecystitis: Postoperative day #6 status post laparoscopic cholecystectomy Doing well Tolerating diet H&H remains stable Continue IV antibiotics Continue analgesics Increase activity Admission and Anticipated Discharge Date Admission Date: August 04, 2020 Subjective Postoperative day #6 status post laparoscopic cholecystectomy Patient still has some mild confusion No abdominal pain No nausea or vomiting Tolerated diet Has developed loose stool Physical Exam Constitutional: no acute distress Gastrointestinal (Abdomen): Inspection/Auscultation: normal bowel sounds and + abdominal surgical incision (All are clean, dry and intact); abdomen not distended Percussion/Palpation: abdomen soft; abdomen nontender (Minimal incisional) Results & Data ([facility]) Vital Signs (Past 12 Hours) Vital Signs Temp Pulse Resp BP BP Pulse Ox 08/12/20 08:09 36.3 C L 75 18 91/57 L 98 08/12/20 03:35 36.9 C 91 H 18 112/73 97 Laboratory Results 08/12/20 08/12/20 08/08/20 Range/Units 05:40 05:40 15:27 WBC 9.73 (4.8-10.8) K/uL RBC 2.68 L (4.7-6.1) M/uL Hgb 9.0 L (14.0-18.0) g/dL Hct 26.8 L (42-52) % MCV 100.0 (80-100) fL MCH 33.6 (25-34) pg MCHC 33.6 (32-36) g/dL RDW Std Deviation 57.1 H (36.4-46.3) fL RDW Coeff of Osito 15.7 H (11.5-14.5) % Plt Count 184 (130-400) K/uL MPV 9.4 (7.4-10.4) fL Immature Gran % (Auto) 0.6 % Neut % (Auto) 78.4 % Lymph % (Auto) 11.6 % [place] % (Auto) 8.9 % Eos % (Auto) 0.4 % Baso % (Auto) 0.1 % Neut # (Auto) 7.62 H (1.4-6.5) K/uL Lymph # (Auto) 1.13 L (1.2-3.4) K/uL [place] # (Auto) 0.87 H (0.11-0.59) K/uL Eos # (Auto) 0.04 (0-0.5) K/uL Baso # (Auto) 0.01 (0-0.2) K/uL Immature Gran # (Auto) 0.06 H (0.00-0.02) K/uL Sodium 137 (136-145) mmol/L Potassium 3.4 L (3.5-5.1) mmol/L Chloride 104 (98-107) mmol/L Carbon Dioxide 27 (21-32) mmol/L Anion Gap 6.0 (3-11) BUN 23 H (7-18) mg/dl Creatinine 1.01 (0.6-1.4) mg/dl Est Cr Clr Drug Dosing 52.2 ml/min Est GFR ( Amer) 76.6 Est GFR (Non-Af Amer) 66.1 BUN/Creatinine Ratio 23.0 H (10-20) Glucose 89 (70-99) mg/dl Calcium 7.8 L (8.5-10.1) mg/dl Crossmatch See Detail
--- NOTE | 2020-08-12 11:48 | Cardiology Progress Note ---
Date of Service August 12, 2020 Assessment & Plan (1) Atrial dysrhythmia: (2) Acute delirium: (3) Diastolic CHF: (4) Acalculous cholecystitis: (5) Chronic kidney disease, stage 3: Clinically and hemodynamically stable, still with mild confusion. Ventricular rate well controlled on amiodarone/digoxin/metoprolol. No evidence of bleeding, back on apixaban for thromboembolic prophylaxis with his atrial fibrillation. Volume status remains favorable, no need for his routine diuretic at this time (was on Dyazide 1 daily). BP normal to mildly reduced, this is baseline for him. No new recommendations from a cardiac standpoint. Admission and Anticipated Discharge Date Admission Date: August 04, 2020 Subjective Uneventful night, he does seem mildly confused again this morning. He had no complaints, denied any abdominal pain, chest pain, palpitations, lightheadedness, presyncope, or syncope. Rhythm was atrial fibrillation with ventricular rate in the 90 bpm range overnight. BP low normal to mildly reduced (his baseline is low normal). No specific complaints at the time of my evaluation. Physical Exam Physical Exam: No distress. Afebrile. Low normal to mildly reduced BP. Pulse 86 bpm and irregular. Skin: no ecchymoses or generalized lesions. HEENT: unremarkable. Neck: Jugular venous pulse at the clavicle at 70 degrees, no carotid bruits. Lungs: Breath sounds clear. No accessory muscle use. Cardiac: irregular rhythm, 2/6 apical holosystolic murmur, no diastolic murmur or gallop. Abdomen: Nondistended. Extremities: no edema, pulses intact. Neurologic: Interactive but had some difficulty with memory/details of conversation, nonfocal. Results & Data ([facility]) Vital Signs (Past 12 Hours) Vital Signs Temp Pulse Resp BP BP Pulse Ox 08/12/20 08:09 97.3 F L 75 18 91/57 L 98 08/12/20 03:35 98.4 F 91 H 18 112/73 97 Laboratory Results Hemoglobin stable at 9.0. Normal white count. Potassium 3.4, otherwise normal electrolytes. BUN 23, creatinine 1.01. PG Care Time/CCT Total # of Minutes Spent Total Time Spent with Patient: Total time spent is greater than 50% in coordination of care (as documented) at patient's floor/unit and/or counseling patient: Coding Level of Care Code 89393 Subseq Hosp Care Lvl 3 Diagnoses Atrial dysrhythmia I49.8 Acute delirium R41.0 Diastolic CHF I50.30 Acalculous cholecystitis K81.9 Chronic kidney disease, stage 3 N18.32 Chronic kidney disease stage 3 subtype: stage 3b (GFR 30-44) (1) Chronic kidney disease, stage 3 Chronic kidney disease stage 3 subtype: stage 3b (GFR 30-44) Qualified Code(s): N18.32 - Chronic kidney disease, stage 3b
[2020-08-12] MEDS: ACETAMINOPHEN 325 MG TAB PO PRN (11:59)
--- NOTE | 2020-08-12 14:02 | Hospitalist Progress Note ---
Date of Service August 12, 2020 Assessment & Plan (1) Acalculous cholecystitis: Alonso Rhodes is a 89y/o M with PMH significant for heart failure with preserved ejection fraction, CKD stage III, hypertension, A. fib on Eliquis, BPH; admitted for cholecystitis. Awaiting placement. Anemia: -Hgb stabilized now. Today 9.0, with stable BPs -not having symptoms at this time. Continue to monitor and trend daily CBC -Sx team with removal of ZACKARY drain 08/10 that was source of blood loss -Type & cross ordered; will hold 2 units at this time. Would initiate transfusions for Hgb <7, or for Hgb<8 with worsening Cr, or if development of symptoms from blood loss Acalculous cholecystitis: -POD #6 from laparoscopic cholecystectomy 08/06 -CTAP showed inflammatory findings consistent with acute cholecystitis. -HIDA scan performed, no evidence of common bile duct obstruction -AST/ALT/Alk phos stable and downtrending -continue ceftriaxone at this time. Micro returned + e.coli -ZACKARY drain removed 08/10 after output decreased and was serosangenous Atrial fibrillation: -At home is on digoxin, amiodarone, Eliquis. -Continue digoxin and amiodarone. Metoprolol added 50 BID --> Consider cutting to 37.5 BID given soft pressures at times -Restarted Eliquis 08/11 Acute Kidney Injury in the setting of CKD stage III: -Baseline creatinine around 1.2 -Cr peaked at 2.33 with subsequent downtrend now normal -will continue to avoid additional diuretics at this time Diastolic CHF: -CXR demonstrating increased pleural effusions 08/07. Appears euvolemic at this time. -improved following 60mg Lasix IV 08/09, on hold -continue to monitor total fluid intake for avoidance of exacerbation -LVEF 45-50% on current echocardiogram Elevated Troponin -Probably demand ischemia from cholecystitis and possibly a degree of decreased clearance from CKD Delirium -Pt with episode of acute delirium/AMS 08/10 with persecutory thoughts wanting to leave AMA. Able to be redirected eventually -PRN IM Haldol 5 mg ordered for severe agitation and PRN 1:1 placed Diet: full liquid diet Code Status: Full code DVT ppx: Eliquis Dispo: Remains on [facility]. Referrals made to [facility], pending insurance auth Admission and Anticipated Discharge Date Admission Date: August 04, 2020 Supervising Physician Co-Signing Physician Notes Attending Attestation: Pt seen/examined, chart reviewed, care plan d/w resident Jose Antonio Ceja DO. I agree w/ the bradshaw components of his documentation. Patient resting comfortably during my bedside visit. Denied cp, dyspnea, cough. Mild right sided abd pain where ZACKARY drain had been. Tolerating diet. +flatus. VSS although BPs mildly low, no fever gen - NAD mouth - MMM heart - irregular, s1 s2 lungs - CTA b/l, no rales, mildly decreased BS bases abd - soft, mildly tender junction of RUQ/RLQ, no peritoneal signs, BS+ ext - no edema labs reviewed & acceptable macrocytic anemia with Hb 9 A/P: 1. POD #6 s/p lap samson with washout of peritoneal cavity 2. peritonitis 2nd to acalculous cholecystitis; cx with e.coli; remains on rocephin IV 2gm daily 3. macrocytic anemia with acute blood loss anemia component; consider checking b12/folate; TSH 2020 wnl 4. acute/chronic systolic CHF - now compensated; echo EF 45-50% 5. a.fib/flutter - on amiodarone, dig and metoprolol; eliquis resumed 6. recent metabolic encephalopathy - likely 2nd to #1, #2 - resolved dispo - rehab Titus Sigala MD Subjective Patient seen this morning and was able to converse appropriately. Patient with no concerns or complaints. Denies any abdominal pain. Tolerating p.o. intake. Denies nausea vomiting. No issues voiding. No other acute overnight events. Review of Systems Review of Systems: All systems reviewed & are unremarkable except as noted in HPI & below Physical Exam Constitutional: WD/WN, vitals as above Eyes: PERRL, conjunctivae normal, anicteric sclerae ENMT: external ear and nose normal, oropharynx normal Respiratory: normal respiratory effort, lungs clear to auscultation Cardiovascular: Rate/Rhythm: regular rate and regular rhythm Heart Sounds: + murmur Gastrointestinal (Abdomen): normal bowel sounds, soft, nontender, no hepatosplenomegaly Inspection/Auscultation: + abdominal surgical incision (abdominal surgical incision CDI ) Skin: no rashes, warm and dry Psychiatric: A+Ox3, euthymic affect Results & Data Results & Data ([facility]) Vital Signs (Past 12 Hours) Vital Signs Temp Pulse Resp BP BP Pulse Ox 08/12/20 12:14 36.5 C 95 H 18 105/69 95 08/12/20 08:09 36.3 C L 75 18 91/57 L 98 08/12/20 03:35 36.9 C 91 H 18 112/73 97 Laboratory Results Laboratory Results - last 24 hr 08/08/20 08/12/20 08/12/20 15:27 05:40 05:40 WBC 9.73 RBC 2.68 L Hgb 9.0 L Hct 26.8 L MCV 100.0 MCH 33.6 MCHC 33.6 RDW Std Deviation 57.1 H RDW Coeff of Osito 15.7 H Plt Count 184 MPV 9.4 Immature Gran % (Auto) 0.6 Neut % (Auto) 78.4 Lymph % (Auto) 11.6 Franklin % (Auto) 8.9 Eos % (Auto) 0.4 Baso % (Auto) 0.1 Neut # (Auto) 7.62 H Lymph # (Auto) 1.13 L Franklin # (Auto) 0.87 H Eos # (Auto) 0.04 Baso # (Auto) 0.01 Immature Gran # (Auto) 0.06 H Sodium 137 Potassium 3.4 L Chloride 104 Carbon Dioxide 27 Anion Gap 6.0 BUN 23 H Creatinine 1.01 Est Cr Clr Drug Dosing 52.2 Est GFR ( Amer) 76.6 Est GFR (Non-Af Amer) 66.1 BUN/Creatinine Ratio 23.0 H Glucose 89 Calcium 7.8 L Crossmatch See Detail Medications Administered Current Inpatient Medications Acetaminophen (Acetaminophen 325 Mg Tab) 650 mg PO Q4H PRN PRN Reason: mild pain Stop: 09/09/20 07:32 Last Admin: 08/12/20 11:59 Dose: 650 mg Documented by: Al Hydrox/Mg Hydrox/Simethicone (Aluminum/Magnesium Susp 30 Ml Udc) 15 ml PO Q6H PRN PRN Reason: heartburn Stop: 09/06/20 14:32 Last Admin: 08/07/20 14:57 Dose: 15 ml Documented by: Amiodarone HCl (Amiodarone 200 Mg Tab) 200 mg PO BID MEJIA Stop: 09/03/20 20:59 Last Admin: 08/12/20 08:45 Dose: 200 mg Documented by: Apixaban (Apixaban 5 Mg Tablet) 5 mg PO BID [facility] Stop: 09/10/20 10:14 Last Admin: 08/12/20 08:45 Dose: 5 mg Documented by: Bisacodyl (Bisacodyl 10 Mg Supp) 10 mg TN NOW PRN PRN Reason: Constipation Stop: 09/07/20 06:54 Last Admin: 08/08/20 07:43 Dose: 10 mg Documented by: Digoxin (Digoxin 0.125 Mg Tab) 0.125 mg PO Q2D [facility] Stop: 09/04/20 08:59 Last Admin: 08/11/20 08:46 Dose: 0.125 mg Documented by: Haloperidol Lactate (Haloperidol Lactate 5 Mg/Ml 1 Ml Vial) 5 mg IM Q12H PRN PRN Reason: extreme agitation Stop: 09/09/20 13:24 Ceftriaxone Sodium 2,000 mg/ (Dextrose) 70 mls @ 100 mls/hr IV Q24H [facility]; Protocol Stop: 08/19/20 09:59 Last Infusion: 08/12/20 12:07 Dose: Infused Documented by: Menthol (Cough Drop (Sugar Free) Laverne 24 Laverne/1 Box) 1 laverne BUCCAL PRN PRN PRN Reason: Sore Throat Stop: 09/09/20 09:38 Metoprolol Tartrate (Metoprolol Tartrate 1 Mg/Ml Vial) 5 mg IV Q4 PRN PRN Reason: Tachycardia Stop: 09/06/20 11:59 Last Admin: 08/07/20 10:30 Dose: 5 mg Documented by: Metoprolol Tartrate (Metoprolol Tartrate 50 Mg Tab) 50 mg PO BID [facility] Stop: 09/07/20 10:29 Last Admin: 08/12/20 08:43 Dose: Not Given Documented by: Ondansetron HCl (Ondansetron Inj 2 Mg/Ml 2 Ml Vial) 4 mg IV Q6H PRN PRN Reason: Nausea Stop: 09/03/20 13:40 Pantoprazole Sodium (Pantoprazole 40 Mg Tab) 40 mg PO QAM [facility]; Protocol Stop: 09/04/20 08:59 Last Admin: 08/12/20 08:42 Dose: 40 mg Documented by: Triamterene/Hydrochlorothiazide (Triamterene/Hctz 37.5/25mg Tab) 1 tab PO DAILY MEJIA Stop: 09/04/20 08:59 Last Admin: 08/07/20 08:40 Dose: 1 tab Documented by: Resident Activity Tracking Resident Involvement: Resident Care Provided Care Provided: Adult Hospital Medicine
[2020-08-13 06:02] LABS: Basophils # (auto) 0.01 K/uL (0-0.2); Basophils % (auto) 0.1 %; Eosinophils # (auto) 0.06 K/uL (0-0.5); Eosinophils % (auto) 0.6 %; Hematocrit (blood only) 26.6 % (42-52); Immature Granulocytes % (auto) 0.9 %; Lymphocytes # (auto) 0.99 K/uL (1.2-3.4); Lymphocytes % (auto) 9.3 %; Mean Corpuscular Hemoglobin 34.1 pg (25-34); Mean Corpuscular Hgb Conc 33.8 g/dL (32-36); Mean Corpuscular Volume 100.8 fL (80-100); Mean Platelet Volume 9.6 fL (7.4-10.4); Monocytes # (auto) 0.93 K/uL (0.11-0.59); Monocytes % (auto) 8.7 %; Neutrophils # (auto) 8.55 K/uL (1.4-6.5); Neutrophils % (auto) 80.4 %; Platelet Count 204 K/uL (130-400); RDW Coefficient of Variation 15.8 % (11.5-14.5); RDW Standard Deviation 57.5 fL (36.4-46.3); Red Blood Count 2.64 M/uL (4.7-6.1); White Blood Count 10.64 K/uL (4.8-10.8)
[2020-08-13 06:26] LABS: BUN Creatinine Ratio 18.7 (10-20); Calcium 7.6 mg/dl (8.5-10.1); Creatinine Clr Calc Pharmacy 50.2 ml/min; Est GFR (African American) 73.1; Est GFR (Non-African American) 63.1; Potassium 3.6 mmol/L (3.5-5.1)
[2020-08-13] MEDS: ACETAMINOPHEN 325 MG TAB PO PRN ×2 (06:31→19:40)
--- NOTE | 2020-08-13 06:52 | Surgery Progress Note ---
Date of Service August 13, 2020 Assessment & Plan (1) Cholecystitis: pod #7 laparoscopic cholecystectomy intraoperative cholangiogram From my point of view the patient to be discharged there is no need to follow-up with our office he was restarted on Eliquis 48 hours ago and his hemoglobin has been stable His white count is normal he still has a slight left shift and he is presently on antibiotics may consider giving a full 10-day course of antibiotics for his positive cultures of peritoneal fluid time of surgery I discussed with the patient the anticipated recovery time which you prefer another month before he is fully recovered from surgery Activity as tolerated POD#4 laparoscopic cholecystectomy Patient feeling well. Abdominal exam is benign, wounds look c/d/i Hbg stable at 9. ZACKARY drain output decreased and is serosangenous in character Will remove ZACKARY drain today Continue diet as tolerates Micro returned + e.coli, WBC 11 today, can consider completing a course of abx for this We are okay with resuming Eliquis tomorrow (08/11/20) Pt seen and examined with Dr. Tosha [facility] covering for the weekend Admission and Anticipated Discharge Date Admission Date: August 04, 2020 Subjective Patient is a bit confused this morning but appears to be better overall than last seen a few days ago He denies any abdominal pain states that he ate well and his bowels are moving Physical Exam Physical Exam: Is alert although conversation wilhelm he is slightly confused The abdomen is completely benign incision sites of healing well Results & Data ([facility]) Vital Signs (Past 12 Hours) Vital Signs Temp Pulse Pulse Pulse Resp BP Pulse Ox 08/13/20 03:17 36.6 C 85 20 112/73 98 08/13/20 00:00 90 08/12/20 23:07 36.5 C 91 H 18 118/72 96 08/12/20 20:30 89 111/70 08/12/20 19:44 36.6 C 98 H 18 99/61 L 96 lab noted PG Care Time/CCT Total # of Minutes Spent Total Time Spent with Patient: Total time spent is greater than 50% in coordination of care (as documented) at patient's floor/unit and/or counseling patient: Coding Level of Care Code None Diagnoses Cholecystitis K81.9
[2020-08-13] MEDS: PANTOprazole 40 MG TAB PO SCH (07:34)
[2020-08-13] MEDS: AMIODARONE 200 MG TAB PO SCH ×2 (07:34→20:31)
[2020-08-13] MEDS: DIGOXIN 0.125 MG TAB PO SCH (07:34)
[2020-08-13] MEDS: METOPROLOL TARTRATE 50 MG TAB PO SCH (07:35)
[2020-08-13] MEDS: APIXABAN 5 MG TABLET PO SCH ×2 (07:37→20:31)
[2020-08-13] MEDS: cefTRIAXone SODIUM 2,000 MG in DEXTROSE 5% 50 ML IV SCH (10:04)
--- NOTE | 2020-08-13 10:17 | Cardiology Progress Note ---
Date of Service August 13, 2020 Assessment & Plan (1) Atrial dysrhythmia: (2) Diastolic CHF: (3) Chronic kidney disease, stage 3: (4) Acalculous cholecystitis: Patient remains clinically and hemodynamically stable, intermittent confusion has been a problem but he seems more lucid today. Atrial fibrillation/flutter, rate well controlled on amiodarone/digoxin/metoprolol, discharge on current regimen. No evidence of bleeding on apixaban, this was resumed for thromboembolic prophylaxis for his atrial fibrillation. If rate control continues to be an issue as an outpatient will consider elective cardioversion after 3 to 4 weeks of anticoagulation. I am status remains favorable, no need for his routine diuretic at this time (was on Dyazide 1 daily). BP normal to mildly reduced, this is baseline for him. No new recommendations from a cardiac standpoint, will sign off. Admission and Anticipated Discharge Date Admission Date: August 04, 2020 Subjective Uneventful night, he seemed lucid this morning and would carry on a normal conversation. He had no complaints, denied any abdominal pain, chest pain, palpitations, lightheadedness, presyncope, or syncope. Rhythm was atrial fibrillation with ventricular rate in the 90 bpm range overnight. BP low normal to mildly reduced (his baseline is low normal). No specific complaints at the time of my evaluation. Physical Exam Physical Exam: No distress. Afebrile. Low normal to mildly reduced BP. Pulse 88 bpm and irregular. Skin: no ecchymoses or generalized lesions. HEENT: unremarkable. Neck: Jugular venous pulse at the clavicle at 90 degrees, no carotid bruits. Lungs: Breath sounds clear. No accessory muscle use. Cardiac: irregular rhythm, 2/6 apical holosystolic murmur, no diastolic murmur or gallop. Abdomen: Nondistended. Extremities: no edema, pulses intact. Neurologic: Interactive and appropriate, nonfocal. Results & Data ([facility]) Vital Signs (Past 12 Hours) Vital Signs Temp Pulse Pulse Resp BP Pulse Ox 08/13/20 07:34 92 H 08/13/20 06:52 98.7 F 85 18 101/50 L 95 08/13/20 03:17 97.9 F 85 20 112/73 98 08/13/20 00:00 90 08/12/20 23:07 97.7 F 91 H 18 118/72 96 Laboratory Results Hemoglobin stable at 9.0. Normal electrolytes, BUN 20, creatinine 1.05. PG Care Time/CCT Total # of Minutes Spent Total Time Spent with Patient: Total time spent is greater than 50% in coordination of care (as documented) at patient's floor/unit and/or counseling patient: Coding Level of Care Code 00023 Subseq Hosp Care Lvl 2 Diagnoses Atrial dysrhythmia I49.8 Diastolic CHF I50.30 Chronic kidney disease, stage 3 N18.32 Chronic kidney disease stage 3 subtype: stage 3b (GFR 30-44) Acalculous cholecystitis K81.9 (1) Chronic kidney disease, stage 3 Chronic kidney disease stage 3 subtype: stage 3b (GFR 30-44) Qualified Code( s): N18.32 - Chronic kidney disease, stage 3b
--- NOTE | 2020-08-13 11:36 | Billing Data ---
Date of Service August 12, 2020 Coding Level of Care Code 26285 Subseq Hosp Care Lvl 3
--- NOTE | 2020-08-13 12:13 | Hospitalist Progress Note ---
Date of Service August 13, 2020 Assessment & Plan (1) Acalculous cholecystitis: Alonso Rhodes is a 89y/o M with PMH significant for heart failure with preserved ejection fraction, CKD stage III, hypertension, A. fib on Eliquis, BPH; admitted for cholecystitis. Awaiting placement. Peritonitis sec to Acalculous cholecystitis: -POD #7 from laparoscopic cholecystectomy 08/06. -CTAP showed inflammatory findings consistent with acute cholecystitis. -HIDA scan performed, no evidence of common bile duct obstruction. -AST/ALT/Alk Phos downtrending. -Continue ceftriaxone 2gm at this time for + E.coli culture. Macrocytic Anemia with component of ABLA: -Hgb still stable ~9.0 post op. -ZACKARY drain removed 08/10, Hgb stable since that time. -Would initiate transfusions for Hgb <7, or for Hgb<8 with worsening Cr, or if development of symptoms from blood loss -consider B12/folate level check. Recent TSH from Apr 2020 normal. Atrial flutter/fibrillation: -At home is on digoxin, amiodarone, Eliquis. -Continue digoxin and amiodarone. -Metoprolol added 50 BID this admission --> Decreased to 37.5 BID given intermittent soft BP and normal HR. -Eliquis restarted on 08/11. Acute Kidney Injury in the setting of CKD stage III: -Baseline creatinine around 1.2. -Cr peaked at 2.33 with subsequent downtrend to normal. -Continue to avoid additional diuretics at this time. Acute on chronic Diastolic CHF: -CXR demonstrating increased pleural effusions 08/07. Appears euvolemic at this time. -Improved following 60mg Lasix IV x1 on 08/09. -LVEF 45-50% on current echocardiogram. Elevated Troponin: -Probably demand ischemia from cholecystitis and possibly a degree of decreased clearance from initial LASHAWN on CKD. Metabolic encephalopathy: -Pt with episode of acute delirium/AMS 08/10 with persecutory thoughts wanting to leave AMA. Able to be redirected eventually. -sec to infection -PRN 1:1 with delirium precautions; patient is euthymic. Diet: Heart Healthy diet Code Status: Full code DVT ppx: Eliquis Dispo: Med/Tele, dispo planning with suspected discharge to [facility] tomorrow Admission and Anticipated Discharge Date Admission Date: August 04, 2020 Supervising Physician Co-Signing Physician Notes Resident Physician Supervision Note: I independently interviewed and examined the patient and verified the bradshaw history and physical, reviewed labs and image studies, discussed the case with the resident Dr. Kevin and agree with the findings and care plan. Subjective Patient without acute events overnight. Sometimes appears to be a bit tangential, however can carry on a normal conversation for the most part. Denies chest pain, shortness of breath. Some abdominal pain, mild, worsens a bit with food intake. No nausea or vomiting. No sensation of fevers or chills. Has been hemodynamically stable and afebrile. Review of Systems Review of Systems: All systems reviewed & are unremarkable except as noted in HPI & below Constitutional: no fever, no chills and no malaise Respiratory: no cough and no dyspnea Cardiovascular: no chest pain, no palpitations and no edema Gastrointestinal: + abdominal pain (mild); no constipation and no diarrhea/loose stools Physical Exam Constitutional: WD/WN, vitals as above Respiratory: normal respiratory effort, lungs clear to auscultation Cardiovascular: Rate/Rhythm: + irregularly irregular Heart Sounds: + murmur Gastrointestinal (Abdomen): Inspection/Auscultation: normal bowel sounds; abdomen not distended Percussion/Palpation: + abdomen tender (Mild, diffuse) and abdomen soft incision sites clean, dry, intact Skin: no rashes, warm and dry Psychiatric: A+Ox3, euthymic affect Results & Data Results & Data ([facility]) Vital Signs (Past 12 Hours) Vital Signs Temp Pulse Pulse Resp BP BP Pulse Ox 08/13/20 11:15 36.5 C 82 18 97/63 L 96 08/13/20 07:34 92 H 08/13/20 06:52 37.1 C 85 18 101/50 L 95 08/13/20 03:17 36.6 C 85 20 112/73 98 Resident Activity Tracking Resident Involvement: Resident Care Provided Care Provided: Adult Hospital Medicine
[2020-08-13] MEDS: METOPROLOL TARTRATE 25 MG TAB PO SCH (20:32)
[2020-08-14 06:38] LABS: Creatinine Clr Calc Pharmacy 50.7 ml/min; Est GFR (African American) 77.5; Est GFR (Non-African American) 66.9
[2020-08-14 07:13] LABS: Hematocrit (blood only) 25.8 % (42-52); Hemoglobin 8.8 g/dL (14.0-18.0); Mean Corpuscular Hemoglobin 34.1 pg (25-34); Mean Corpuscular Hgb Conc 34.1 g/dL (32-36); Mean Platelet Volume 9.4 fL (7.4-10.4); Platelet Count 259 K/uL (130-400); RDW Standard Deviation 58.1 fL (36.4-46.3); Red Blood Count 2.58 M/uL (4.7-6.1); White Blood Count 10.57 K/uL (4.8-10.8)
[2020-08-14] MEDS: AMIODARONE 200 MG TAB PO SCH ×2 (08:06→20:33)
[2020-08-14] MEDS: ADVANCED PROBIOTIC 1250 MG CAPSULE PO SCH (08:06)
[2020-08-14] MEDS: PANTOprazole 40 MG TAB PO SCH (08:06)
[2020-08-14] MEDS: APIXABAN 5 MG TABLET PO SCH ×2 (08:06→20:33)
[2020-08-14 08:38] LABS: Folate (Folic Acid) 11.8 ng/ml (>5.38)
[2020-08-14] MEDS: METOPROLOL TARTRATE 25 MG TAB PO SCH ×2 (09:43→20:31)
[2020-08-14] MEDS: cefTRIAXone SODIUM 2,000 MG in DEXTROSE 5% 50 ML IV SCH (09:45)
--- NOTE | 2020-08-14 16:39 | Hospitalist Progress Note ---
Date of Service August 14, 2020 Assessment & Plan (1) Cholecystitis: 89 yo M with PMHx significant for heart failure with preserved ejection fraction, CKD stage III, HTN, A. fib on Eliquis, BPH; admitted for cholecystitis now s/p cholecystectomy. Peritonitis secondary to Acalculous cholecystitis: -POD #8 from laparoscopic cholecystectomy on 08/06. -CTAP on admission showed inflammatory findings consistent with acute cholecystitis. -HIDA scan performed, no evidence of common bile duct obstruction. -AST/ALT/Alk Phos downtrending. -positive E.coli wound culture; has had a total of 11 days of IV antibiotics; transition to Augmentin BID on discharge for total antibiotic duration of 14 days. Macrocytic Anemia, Acute Blood Loss Anemia: -On admission had Hgb 13.7 with MCV of 100, has been elevated as high as 102 in the last year per EMR. -Following cholecystectomy patient had significant bloody discharge from drains, with drop in Hgb to 9. -Hgb still stable at ~9.0 post op since removal of ZACKARY drain on 08/10, and has not required PRBCs. -Would initiate transfusions for Hgb <7, or for Hgb<8 with worsening Cr, or if development of symptoms from blood loss. -Recent TSH from Apr 2020 normal. -B12 and folate levels normal. -Peripheral smear performed with results as follows: Rising MCV and mild hypersegmentation with normal B12 and folate can indicate MDS. Some anemia secondary to blood loss from surgery, as well as overall fluid balance. -If anemia progresses and MCV continues to rise hematology work up should be considered for myelodysplastic syndromes. Atrial flutter/fibrillation: -At home is on digoxin, amiodarone, Eliquis. -Continue digoxin and amiodarone. -Continue metoprolol 25 BID started this admission, continue. -Eliquis restarted on 08/11. Acute Kidney Injury in the setting of CKD stage III: -Baseline creatinine around 1.2. -Cr peaked at 2.33 with subsequent downtrend to normal. 1.00 on day of discharge. -Continue to hold triamterene/HCTZ until seen by PCP. [place] donovan and leg elevation for leg swelling. Acute on chronic Diastolic CHF: -CXR demonstrating increased pleural effusions 08/07. Appears euvolemic at this time. -Improved following 60mg Lasix IV x1 on 08/09. -LVEF 45-50% on most recent Echocardiogram. -No daily diuretics for now. Encouraged low salt diet. Daily weights. Elevated Troponin: -Persistently elevated on all prior checks. -0.265 this admission, with subsequent downtrend. No ST/T wave changes. -Likely demand ischemia from cholecystitis and possibly a degree of decreased clearance from initial LASHAWN on CKD. Metabolic encephalopathy: -Pt with episode of AMS / with persecutory thoughts wanting to leave AMA. Able to be redirected. -Was suspected to be secondary to blood loss, abdominal infection, unfamiliar environment. -Patient euthymic and appropriate on discharge. Delirium precautions, OOB to chair when able, reorientation when needed. Code Status: FULL CODE FEN: Heart Healthy diet DVT ppx: Eliquis BID Dispo: Med Surg, awaiting insurance authorization for SNF placement Admission and Anticipated Discharge Date Admission Date: August 04, 2020 Supervising Physician Co-Signing Physician Notes Resident Physician Supervision Note: I independently interviewed and examined the patient and verified the bradshaw history and physical, reviewed labs and image studies, discussed the case with the resident Dr. Kevin and agree with the findings and care plan. Subjective Patient without acute events overnight. Mild abdominal pain with eating, but has continued to improve during his stay. No chest pain, shortness of breath, nausea, vomiting. Review of Systems Review of Systems: All systems reviewed & are unremarkable except as noted in HPI & below Constitutional: no fever, no chills and no malaise Respiratory: no cough and no dyspnea Cardiovascular: no chest pain, no palpitations and no edema Gastrointestinal: + abdominal pain (mild); no constipation and no diarrhea/loose stools Physical Exam Constitutional: WD/WN, vitals as above Respiratory: normal respiratory effort, lungs clear to auscultation Cardiovascular: Rate/Rhythm: + irregularly irregular Heart Sounds: + murmur Gastrointestinal (Abdomen): Inspection/Auscultation: normal bowel sounds; abdomen not distended Percussion/Palpation: + abdomen tender (Mild, diffuse) and abdomen soft incision sites clean, dry, intact Skin: no rashes, warm and dry Psychiatric: A+Ox3, euthymic affect Results & Data Results & Data ([facility]) Vital Signs (Past 12 Hours) Vital Signs Temp Pulse Resp BP Pulse Ox 08/14/20 15:56 36.6 C 85 20 105/68 96 08/14/20 11:29 36.5 C 92 H 20 95/62 L 93 08/14/20 07:01 36.7 C 90 18 108/73 96 Resident Activity Tracking Resident Involvement: Resident Care Provided Care Provided: Adult Hospital Medicine
[2020-08-15] MEDS: ACETAMINOPHEN 325 MG TAB PO PRN (04:41)
[2020-08-15] MEDS: APIXABAN 5 MG TABLET PO SCH (07:14)
[2020-08-15] MEDS: ADVANCED PROBIOTIC 1250 MG CAPSULE PO SCH (07:15)
[2020-08-15] MEDS: DIGOXIN 0.125 MG TAB PO SCH (07:15)
[2020-08-15] MEDS: PANTOprazole 40 MG TAB PO SCH (07:17)
[2020-08-15] MEDS: METOPROLOL TARTRATE 25 MG TAB PO SCH (07:18)
[2020-08-15] MEDS: AMIODARONE 200 MG TAB PO SCH (07:18)
--- NOTE | 2020-08-15 09:24 | Discharge Summary ---
Date of Service August 15, 2020 Admission HPI Per Admitting Provider 89 YOM with past medical history significant for bladder cancer (TURBT 2013), Afib/flutter( on amiodarone and apixaban), hfPef, HLD, carotid atherosclerosis, CKD III, kidney stones, HTN, pyloric stenosis at , gout, pericardial cyst, plueral effusion, GERD. Comes in to the emergency room for ~ 1 week of abdominal discomfort that worsened over the past 2-3 days with subjective fever and vomiting last night. In the emergency room it was noted that he had elevated biliary labs and a CT scan of the abdomen and pelvis that revealed possible cholecystitis. General Surgery is already evaluating the patient and appreciate their assistance. The patien'ts pain is sub-xyphoid and center of abdomen with no radiation, assoiciated as above with 1 episode of vomiting, also with decreased appetite for the past 2 weeks. He has not noted any relief with his current esomeprazole. He has not ate or taken his medications this morning. It was also noted his troponin to be mildly elevated with symptoms as above and no acute changes on ECG. Patient will be admitted to trend troponin, ECHO, evaluation of his gall-bladder, started on heparin drip and antibiotics; will keep NPO until studies done. Admission Exam Per Admitting Provider General: awake, alert, no apparent distress Head: Normocephalic, atraumatic ENT: PERRLA, EOMI, no pharyngeal exudate, mucous membranes moist Neuro: AAO x 3, speech clear and appropriate, strength intact bilaterally 5/5, sensation intact and equal all extremities and dermatomes, no pronator drift Chest: equal rise and fall of the chest, no accessory muscle use, no heaves or thrills, Clear to auscultation, on room air, Cardiac: Regular rate and rhythm, telemetry reviewed, skin warm dry, cap refill <3 seconds, peripheral pulses +2 no JVD, no murmur, no edema GI: NABS x 4 quadrants, soft, tender to palpation (+) Johnson's sign, no rebound, guarding, liver not enlarged, spleen not enlarged : Spontaneously voiding, no pain, no CVA tenderness, Extremities: Normal inspection, no peripheral edema or erythema, calfs nontender to palpation Psych: Normal mood and affect Skin: no rash or erythema Principal Diagnosis acalculous cholecystitis, acute blood loss anemia Discharge Exam Constitutional WD/WN, vitals as above Respiratory normal respiratory effort, lungs clear to auscultation Cardiovascular Rate/Rhythm: + irregularly irregular Heart Sounds: + murmur Extremities: + edema Gastrointestinal (Abdomen) Inspection/Auscultation: normal bowel sounds; abdomen not distended Percussion/Palpation: abdomen soft; abdomen nontender Skin no rashes, warm and dry incision sites are clean and dry Psychiatric A+Ox3, euthymic affect Discharge Data Allergies Allergy/AdvReac Type Severity Reaction Status Date / Time No Known Allergies Allergy Unknown Verified 08/04/20 07:47 Consultations 08/04/20 09:49 ED Decision to Admit Stat 08/04/20 13:41 Consult General Surgery Routine 08/05/20 07:43 Consult Cardiology Routine Procedures Performed Operation Date: 08/05/20 12:00 <No data on this case meets the specified criteria> Operation Date: 08/06/20 11:00 Actual Procedures p Laparoscopic Cholecystectomy with Cholangiogram, Lysis of Adhesions(Not Applicable) - Miguel A Givens MD, FACS Ordered Studies 08/04/20 07:28 CT abd pelvis IV con only Stat 08/06/20 [place] cholangiogram OR Routine Hospital Course (1) Cholecystitis: 89 yo M with PMHx significant for heart failure with preserved ejection fraction, CKD stage III, HTN, A. fib on Eliquis, BPH; admitted for cholecystitis now s/p cholecystectomy. Peritonitis secondary to Acalculous cholecystitis: -Underwent - laparoscopic cholecystectomy on 08/06. -CTAP on admission showed inflammatory findings consistent with acute cho lecystitis. -HIDA scan performed, no evidence of common bile duct obstruction. -AST/ALT/Alk Phos downtrending. -Positive E.coli wound culture; has had a total of 12 days of IV antibiotics; transition to Augmentin BID on discharge for total antibiotic duration of 14 days. Macrocytic Anemia, Acute Blood Loss Anemia: -On admission had Hgb 13.7 with MCV of 100, has been elevated as high as 102 in the last year per EMR. -Following cholecystectomy patient had significant bloody discharge from drains, with drop in Hgb to 9. -Hgb still stable at ~9.0 post op since removal of ZACKARY drain on 08/10, and has not required PRBCs. -Recent TSH from Apr 2020 normal. -B12 and folate levels normal. -Peripheral smear performed with results as follows: Rising MCV and mild hypersegmentation with normal B12 and folate can indicate MDS. Some anemia secondary to blood loss from surgery, as well as overall fluid balance. -If anemia progresses and MCV continues to rise hematology work up should be considered for myelodysplastic syndromes. Atrial flutter/fibrillation: -At home is on digoxin, amiodarone, Eliquis. -Continue digoxin and amiodarone. -Continue metoprolol 25 BID started this admission. -Eliquis restarted on 08/11. Acute Kidney Injury in the setting of CKD stage III: -Baseline creatinine around 1.2. -Cr peaked at 2.33 with subsequent downtrend to normal. 1.00 on day of discharge. -Continue to hold triamterene/HCTZ until seen by PCP. [place] donovan and leg elevation for leg swelling. Acute on chronic Diastolic CHF: -CXR demonstrating increased pleural effusions 08/07. Appears euvolemic at this time. -Improved following 60mg Lasix IV x1 on 08/09. -LVEF 45-50% on most recent Echocardiogram. -No daily diuretics for now. Encouraged low salt diet. Daily weights. Elevated Troponin: -Persistently elevated on all prior checks. -0.265 this admission, with subsequent downtrend. No ST/T wave changes. -Likely demand ischemia from cholecystitis and possibly a degree of decreased clearance from initial LASHAWN on CKD. Metabolic encephalopathy: -Pt with episode of AMS 08/10 with persecutory thoughts wanting to leave AMA. Able to be redirected. -Was suspected to be secondary to blood loss, abdominal infection, unfamiliar environment. -Patient euthymic, neurologically appropriate, alert and oriented on discharge. Delirium precautions, OOB to chair when able, reorientation when needed. Total Time Total Time Spent Total Time Spent (In Minutes): see attending attestation Discharge Plan Discharge Items Patient Disposition: Transfer Longterm Fac Reason For Visit: ABDOMINAL PAIN Discharge Diagnosis: cholecystitis Activity: Per Instructions section Lifting: No more than 10 pounds Bathing Comment: may shower; no soaking in tubs/pools Exercise/Sports: Wait until after follow-up appointment Driving/Machine Use: Resume 3 days after discharge Non-emergency contact: Primary Care Provider and Surgeon Call non-emergency contact if: you have any medication questions, your symptoms worsen, your pain is not controlled, your pain is worsening, your pain is unusual for you, you have a fever, your temperature is above 101.5, your wound has increased redness, your wound has increased drainage and your wound pain has increased Follow-up/Referrals: Miguel A Givens MD, FACS [Surgeon] - (Please call to schedule follow up in clinic within 1 week) Moustapha Joshi MD [Primary Care Provider] - Diet: Heart Healthy and Low Sodium (2gm) Addtl Attending Provider Instructions: 89 yo M with PMHx significant for heart failure with preserved ejection fraction, CKD stage III, hTN, A. fib on Eliquis, BPH; admitted for cholecystitis now s/p cholecystectomy. Peritonitis sec to Acalculous cholecystitis: -POD #9 from laparoscopic cholecystectomy on 08/06. -CTAP on admission showed inflammatory findings consistent with acute cholecystitis. -HIDA scan performed, no evidence of common bile duct obstruction. -AST/ALT/Alk Phos downtrending. -+ E.coli wound culture; has had a total of 12 days of IV antibiotics; transitioned to Augmentin BID on discharge for total antibiotic duration of 14 days. -Encourage PO intake; patient is fond of Boost [employer] Glucose Control shakes. Can consider these if poor PO. Macrocytic Anemia, Acute Blood Loss Anemia: -On admission had Hgb 13.7 with MCV of 100, has been elevated as high as 102 in the last year per EMR. -Following cholecystectomy patient had significant bloody discharge from drains, with drop in Hgb to 9. -Hgb still stable at ~9.0 post op since removal of ZACKARY drain on 08/10, and has not required PRBCs. -Would initiate transfusions for Hgb <7, or for Hgb<8 with worsening Cr, or if development of symptoms from blood loss. -Recent TSH from Apr 2020 normal. -B12 and folate levels normal. Peripheral smear showed mildly elevated MCV, could not rule out MDS. - Repeat CBC 1 week, if continued elevated MCV or worsening anemia consider hematologic evaluation. Atrial flutter/fibrillation: -At home is on digoxin, amiodarone, Eliquis. -Continue digoxin and amiodarone. -Metoprolol 25 BID started this admission, continue. -Eliquis restarted on 08/11. Acute Kidney Injury in the setting of CKD stage III: -Baseline creatinine around 1.2. -Cr peaked at 2.33 with subsequent downtrend to normal. 1.00 on day of discharge. -Continue to hold triamterene/HCTZ until seen by PCP. NJ donovan and leg elevation for leg swelling. Acute on chronic Diastolic CHF: -CXR demonstrating increased pleural effusions 08/07. Appears euvolemic at this time. -Improved following 60mg Lasix IV x1 on 08/09. -LVEF 45-50% on most recent Echocardiogram. -No daily diuretics for now due to hypotension. Encouraged low salt diet. Daily weights. Elevated Troponin: -Persistently elevated on all prior checks. -0.265 this admission, with subsequent downtrend. No ST/T wave changes. -Likely demand ischemia from cholecystitis and possibly a degree of decreased clearance from initial LASHAWN on CKD. Metabolic encephalopathy: -Pt with episode of AMS 08/10 with persecutory thoughts wanting to leave AMA. Able to be redirected. -Was suspected to be secondary to blood loss, abdominal infection, unfamiliar environment. -Patient euthymic and appropriate on discharge. Delirium precautions, OOB to chair when able, reorientation when needed. Addtl Protozoology Teacher Provider Instructions: You have small white bandages over your incisions called steri-strips. You may shower with these on. They will tend to fall off on their own within 7-10 days. You may change your dressing where your abdominal drain was located daily and as needed with dry 4x4 gauze and medical tape, until wound has healed. Pending Studies at Discharge: Yes Studies:: surgical pathology Stand-Alone Forms: My [facility] Skilled Items Patient informed of condition?: Yes DNR: No Discharge Level of Care: Skilled Communicable Disease: No Discharge Prognosis: Improving Lines: None Urinary Catheter: No Medications and DC Order Prescriptions: New metoprolol tartrate 25 mg Tablet 25 mg PO BID 30 Days Qty: 60 RF: 0 amoxicillin-pot clavulanate [Augmentin] 875-125 mg tablet 1 tab PO BID 2 Days Qty: 4 RF: 0 Continued allopurinol 300 mg tablet 300 mg PO QAM RF: 0 esomeprazole magnesium 40 mg capsule,delayed release(DR/EC) 40 mg PO QAM RF: 0 sildenafil 100 mg tablet 100 mg PO UD PRN (Reason: Erectile Dysfunction) RF: 0 amiodarone 200 mg tablet 200 mg PO BID Qty: 60 RF: 8 Eliquis 5 mg tablet 5 mg PO BID Qty: 60 RF: 3 PreserVision AREDS-2 968-275-83-1 [id number]-[id number]-mg capsule 1 tab PO QAM RF: 0 digoxin [Digox] 125 mcg (0.125 mg) tablet 125 mcg PO Q2D Qty: 45 RF: 3 atorvastatin 20 mg tablet 20 mg PO UD RF: 0 Discontinued triamterene-hydrochlorothiazid 37.5-25 mg tablet 1 tab PO DAILY Qty: 90 RF: 3 Discharge Orders: Discharge Order (Routine); Ordered 08/15/20 Ordered By: Lisa Kevin Admission Data Admit Date/Time: 08/04/20 11:15 Attending Provider: Iza Flores Admit Provider: Deo Enamorado Primary Care Provider: Moustapha Joshi Other Providers: Siddharth Gutierrez ; tC Weathers ; Sid Farah ; Gary Mosquera ; Aminah Garza at [place] ; Dionicio Burrneel ; Tyler Ray Other Interventions: Discharge Summary Assessment (RN) Last Done: 08/15/20 09:27 Supervising Physician Co-Signing Physician Notes Resident Physician Supervision Note: I independently interviewed and examined the patient and verified the bradshaw history and physical, reviewed labs and image studies, discussed the case with the resident Dr. Kevin and agree with the findings and care plan. Resident Activity Tracking Resident Involvement: Resident Care Provided Care Provided: Adult Hospital Medicine
== END 2020-08-15 10:08 | DRG 417 ==
LOC: ED 07:05 → 2N 11:15 → SUATTDRO 11:15 → 2N 13:30

== ENCOUNTER 2020-10-29 11:59 | Inpatient (IN) ==
--- NOTE | 2020-10-29 14:03 | Emergency Department Note ---
Impression & Plan Bilateral edema of lower extremity, CHF (congestive heart failure), Hypokalemia, Hypocalcemia ED Provider Note NAME: JULIANA BECK AGE: 89 SEX: M : 1930 ARRIVES VIA: Walk-In INFORMANT: Patient, ED PROVIDER(S): Jackson Gibson MD Chief Complaint: Leg swelling HPI: Patient does present with concern for leg swelling which is been ongoing for approximately 1 to 2 weeks but has worsened in the last 24 to 48 hours. The patient denies any recent injury to the area. The patient does have a history of atrial flutter and does take rate control blood thinning medication but no diuretic. Patient does follow with Dr. Lofton. Patient denies any orthopnea PND shortness of breath or chest pain. The patient is vaccinated for Covid. Patient does state he has some discomfort and they have noticed some's white leakage of fluid from the bilateral lower extremities. No loss of sensation. Recent trauma fevers or chills. ROS: See HPI for pertinent positives and negatives. A total of 10 systems were r eviewed and otherwise negative. Past medical history: See below Surgical history: See below Social history: See below Physical Exam: GENERAL: Wearing glasses and a mask.NAD, non-toxic. EYE EXAM: Normal conjunctiva. PERRL, no anisocoria and EOM's grossly intact w/o pain. NECK: Supple, no nuchal rigidity, no adenopathy, non-tender. No signs of meningismus. FROM of the neck with good chin to chest and neck extension. No stridor. LUNGS: Clear to auscultation. Normal chest wall mechanics. HEART: NSR, no MRG. ABDOMEN: Abdomen soft, non-tender, normo-active bowel sounds, no masses, no rebound or guarding. BACK: No CVA TTP. SKIN: No rashes and no bruising. UPPER EXTREMITIES: Upper extremities are grossly normal. LOWER EXTREMITIES: Grossly normal, 3-4+ bilateral lower extremity edema. NEURO EXAM: A&O x3, cranial nerves II-XII grossly intact, normal speech, moves all 4 extremities on command w/o issue. Good finger to nose, no drift, no sensory deficits. Differential diagnoses: Reactive airway disease, pneumonia, pneumothorax, COPD, CHF, infections, cardiac ischemia, pulmonary embolism, musculoskeletal, gastrointestinal, as well as other pathologies. Course: Patient was seen and evaluated the bedside. Full history physical exam was performed. EKG interpreted by me Sinus with occasional PVCs, prolonged LA, first-degree AV block, normal QRS, left axis deviation. Imaging Studies: See below Cardiac monitoring: An order was placed for continuous cardiac monitoring. The monitor shows a rate of 81 with sinus rhythm. MDM: Patient was seen due to concern for lower extremity discomfort as well as increasing swelling with drainage. Blood work is obtained along with an EKG. T he patient does have chronically elevated troponin. No obvious acute ischemic changes seen on EKG. Patient has a normal white count with mild anemia. Patient platelet count is normal. Patient does have no obvious infection within the urine. Chest x-ray is consistent with the patient's exam of acute on chronic CHF. I did speak with the on-call hospitalist Dr. Avendano. I did order the patient Lasix 20 IV with p.o. potassium. Magnesium is normal. Tums also ordered for slightly low calcium. Past Med/Surg History Medical History Abnormal cystoscopy Actinic keratosis Atrial fibrillation with rapid ventricular response (03/2020) Bilateral nephrolithiasis (2005) Bladder cancer (2016) Chronic kidney disease, stage 3 Elevated troponin Per cardiology note 08/05/20: (2) Elevated troponin: -mild elevation likely a supply demand mismatch and not coronary ischemia. 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 -did have elevated heart rate and low blood pressure while in the emergency room. GI bleed Gout Hearing loss Hematuria (2018) History of basal cell carcinoma (2016) Hypercholesteremia Male erectile disorder of organic origin Vitamin D deficiency Surgical History H/O pyloroplasty H/O shoulder surgery Hx laparoscopic cholecystectomy (08/06/20) Laparoscopic Cholecystectomy with Cholangiogram, Lysis of Adhesions Dr. Givens 08/06/2020 S/P bladder tumor excision with fulguration (2016) S/P knee surgery Status post ORIF of fracture of ankle Family History Grandfather Cancer Social History Smoking Status: Former smoker Age Quit Using Tobacco: 32; Second Hand Exposure: No; Hx Alcohol Use: Yes Alcohol type: hard liquor Hx Substance Use: No Preferred Language: Chilean Communication Ability: Effective Broom Stitcher Required: No Beliefs That Will Affect Care: None marital status: Current Living Situation: Spouse Current Living Situation Comment: lives w/ current occupational status: retired Feels Safe at Home: Yes Assistive Devices: Glasses and Walker Allergies Allergies Allergy/AdvReac Type Severity Reaction Status Date / Time No Known Allergies Allergy Unknown Verified 10/29/20 14:47 Home Meds Home Medications Medication Instructions Recorded Confirmed allopurinol 300 mg tablet 300 mg PO QAM tab 01/21/19 10/29/20 esomeprazole magnesium 40 mg 40 mg PO QAM cap 01/21/19 10/29/20 capsule,delayed release fluoxetine 10 mg capsule 10 mg PO DAILY 10/15/20 10/29/20 metoprolol succinate 25 mg 12.5 mg PO BID tab 10/15/20 10/29/20 tablet,extended release 24 hr Previous Rx's Medication Instructions Recorded apixaban 5 mg tablet 5 mg PO BID #60 tab 07/26/20 ferrous sulfate 325 mg (65 mg 325 mg PO BID #60 tab 10/15/20 iron) tablet Results & Data (ED) Vital Signs Vital Signs - 24 hr 10/29/20 12:11 10/29/20 12:54 10/29/20 12:58 Temperature 36.4 C L Temperature Source Temporal Artery Scan Pulse Rate 87 81 81 Pulse Rate from SpO2 Sensor 81 81 Pulse Rhythm Regular Pulse Strength Normal Respiratory Rate 20 14 15 Respiratory Effort / Characteristics Non-Labored Spontaneous Respiratory Depth Normal Respiratory Pattern Regular Blood Pressure 102/73 99/71 L Blood Pressure Mean 82 80 Blood Pressure Position Sitting Pulse Oximetry 93 97 97 Oxygen Delivery Method Room Air Sepsis Recent Fever Within 48 Hours No Sepsis New/Unexplained Change in Mental Status N/A Sepsis Action Taken by Nursing No Action Required 10/29/20 13:00 10/29/20 13:10 10/29/20 13:27 Temperature Temperature Source Pulse Rate 81 80 82 Pulse Rate from SpO2 Sensor 81 80 Pulse Rhythm Pulse Strength Respiratory Rate 12 16 16 Respiratory Effort / Characteristics Respiratory Depth Respiratory Pattern Blood Pressure 104/73 Blood Pressure Mean 83 Blood Pressure Position Pulse Oximetry 94 95 Oxygen Delivery Method Sepsis Recent Fever Within 48 Hours Sepsis New/Unexplained Change in Mental Status Sepsis Action Taken by Nursing 10/29/20 13:28 10/29/20 13:30 10/29/20 13:40 Temperature Temperature Source Pulse Rate 82 81 81 Pulse Rate from SpO2 Sensor 82 81 81 Pulse Rhythm Pulse Strength Respiratory Rate 16 16 22 Respiratory Effort / Characteristics Respiratory Depth Respiratory Pattern Blood Pressure 103/72 105/75 Blood Pressure Mean 82 85 Blood Pressure Position Pulse Oximetry 95 96 95 Oxygen Delivery Method Sepsis Recent Fever Within 48 Hours Sepsis New/Unexplained Change in Mental Status Sepsis Action Taken by Nursing 10/29/20 13:50 10/29/20 14:00 10/29/20 14:10 Temperature Temperature Source Pulse Rate 81 82 82 Pulse Rate from SpO2 Sensor 81 82 83 Pulse Rhythm Pulse Strength Respiratory Rate 23 21 18 Respiratory Effort / Characteristics Respiratory Depth Respiratory Pattern Blood Pressure 94/70 L Blood Pressure Mean 78 Blood Pressure Position Pulse Oximetry 92 95 94 Oxygen Delivery Method Sepsis Recent Fever Within 48 Hours Sepsis New/Unexplained Change in Mental Status Sepsis Action Taken by Nursing 10/29/20 14:20 10/29/20 14:30 10/29/20 14:40 Temperature Temperature Source Pulse Rate 82 83 82 Pulse Rate from SpO2 Sensor 82 83 Pulse Rhythm Pulse Strength Respiratory Rate 22 18 12 Respiratory Effort / Characteristics Respiratory Depth Respiratory Pattern Blood Pressure 104/76 Blood Pressure Mean 85 Blood Pressure Position Pulse Oximetry 93 92 Oxygen Delivery Method Sepsis Recent Fever Within 48 Hours Sepsis New/Unexplained Change in Mental Status Sepsis Action Taken by Nursing 10/29/20 14:42 10/29/20 15:00 10/29/20 15:30 Temperature Temperature Source Pulse Rate 85 83 82 Pulse Rate from SpO2 Sensor 83 84 Pulse Rhythm Regular Pulse Strength Respiratory Rate 19 5 L 12 Respiratory Effort / Characteristics Respiratory Depth Respiratory Pattern Blood Pressure 105/77 111/73 Blood Pressure Mean 86 85 Blood Pressure Position Pulse Oximetry 96 96 97 Oxygen Delivery Method Room Air Sepsis Recent Fever Within 48 Hours Sepsis New/Unexplained Change in Mental Status Sepsis Action Taken by Residential Medications Current Medication List: was personally reviewed by me Laboratory Data Attestation: I reviewed the patient's lab results. Result diagrams: 10/29/20 Unknown 10/29/20 Unknown Lab Results 10/29/20 10/29/20 10/29/20 Range/Units 13:28 15:05 15:40 WBC (4.8-10.8) K/uL RBC (4.7-6.1) M/uL Hgb (14.0-18.0) g/dL Hct (42-52) % MCV (80-100) fL MCH (25-34) pg MCHC (32-36) g/dL RDW Std Deviation (36.4-46.3) fL RDW Coeff of [place] (11.5-14.5) % Plt Count (130-400) K/uL MPV (7.4-10.4) fL Immature Gran % (Auto) % Neut % (Auto) % Lymph % (Auto) % [place] % (Auto) % Eos % (Auto) % Baso % (Auto) % Neut # (Auto) (1.4-6.5) K/uL Lymph # (Auto) (1.2-3.4) K/uL [place] # (Auto) (0.11-0.59) K/uL Eos # (Auto) (0-0.5) K/uL Baso # (Auto) (0-0.2) K/uL Immature Gran # (Auto) (0.00-0.02) K/uL Absolute Nucleated RBC (0-0) K/uL Nucleated RBC % (auto) % PT 14.8 H (9.0-12.0) Seconds INR 1.5 H (0.9-1.1) APTT 42.1 H (21.0-31.0) Seconds PTT Ratio 1.6 Sodium (136-145) mmol/L Potassium (3.5-5.1) mmol/L Chloride (98-107) mmol/L Carbon Dioxide (21-32) mmol/L Anion Gap (3-11) BUN (7-18) mg/dl Creatinine (0.6-1.4) mg/dl Est Cr Clr Drug Dosing ml/min Est GFR ( Amer) ml/min Est GFR (Non-Af Amer) ml/min BUN/Creatinine Ratio (10-20) Glucose (70-99) mg/dl Calcium (8.5-10.1) mg/dl Magnesium (1.8-2.4) mg/dl Total Bilirubin (0.2-1) mg/dl AST (15-37) U/L ALT (12-78) U/L Alkaline Phosphatase (45-117) U/L Troponin I (0-0.045) ng/ml Total Protein (6.4-8.2) gm/dl Albumin (3.4-5.0) gm/dl Globulin (2.5-4.0) gm/dl Albumin/Globulin Ratio (0.9-2) TSH (0.300-4.500) uIu/ml Urine Color Dark Yellow Urine Appearance Clear (Clear) Urine pH 5.0 (4.5-7.5) Ur Specific [place] 1.018 (1.000-1.030) Urine Protein Trace H (Negative) Urine Glucose (UA) Negative (Negative) Urine Ketones Negative (Negative) Urine Blood Negative (Negative) Urine Nitrite Negative (Negative) Urine Bilirubin 1+ H (Negative) Urine Urobilinogen Negative (Negative) Ur Leukocyte Esterase Trace H (Negative) Urine WBC (Auto) 1-5 (0-5) /hpf Urine RBC (Auto) 0-4 (0-4) /hpf U Hyaline Cast (Auto) 1-5 (0-5) /lpf U Epithel Cells (Auto) 10-20 H (0-5) /lpf Urine Bacteria (Auto) Negative (Negative) COVID-19 Eval Order Covid19 at [facility] 10/29/20 10/29/20 Range/Units Unknown Unknown WBC 8.51 (4.8-10.8) K/uL RBC 3.51 L (4.7-6.1) M/uL Hgb 12.5 L (14.0-18.0) g/dL Hct 37.3 L (42-52) % MCV 106.3 H (80-100) fL MCH 35.6 H (25-34) pg MCHC 33.5 (32-36) g/dL RDW Std Deviation 71.1 H (36.4-46.3) fL RDW Coeff of [place] 18.9 H (11.5-14.5) % Plt Count 203 (130-400) K/uL MPV 10.6 H (7.4-10.4) fL Immature Gran % (Auto) 0.4 % Neut % (Auto) 78.5 % Lymph % (Auto) 13.5 % [place] % (Auto) 6.2 % Eos % (Auto) 1.3 % Baso % (Auto) 0.1 % Neut # (Auto) 6.68 H (1.4-6.5) K/uL Lymph # (Auto) 1.15 L (1.2-3.4) K/uL [place] # (Auto) 0.53 (0.11-0.59) K/uL Eos # (Auto) 0.11 (0-0.5) K/uL Baso # (Auto) 0.01 (0-0.2) K/uL Immature Gran # (Auto) 0.03 H (0.00-0.02) K/uL Absolute Nucleated RBC 0.04 H (0-0) K/uL Nucleated RBC % (auto) 0.5 % PT (9.0-12.0) Seconds INR (0.9-1.1) APTT (21.0-31.0) Seconds PTT Ratio Sodium 142 (136-145) mmol/L Potassium 3.3 L (3.5-5.1) mmol/L Chloride 108 H (98-107) mmol/L Carbon Dioxide 26 (21-32) mmol/L Anion Gap 8.0 (3-11) BUN 34 H (7-18) mg/dl Creatinine 1.35 (0.6-1.4) mg/dl Est Cr Clr Drug Dosing 37.8 ml/min Est GFR ( Amer) 53.9 ml/min Est GFR (Non-Af Amer) 46.5 ml/min BUN/Creatinine Ratio 25.1 H (10-20) Glucose 101 H (70-99) mg/dl Calcium 8.2 L (8.5-10.1) mg/dl Magnesium 1.9 (1.8-2.4) mg/dl Total Bilirubin 2.1 H (0.2-1) mg/dl AST 37 (15-37) U/L ALT 68 (12-78) U/L Alkaline Phosphatase 165 H (45-117) U/L Troponin I 0.136 H* (0-0.045) ng/ml Total Protein 6.2 L (6.4-8.2) gm/dl Albumin 2.8 L (3.4-5.0) gm/dl Globulin 3.4 (2.5-4.0) gm/dl Albumin/Globulin Ratio 0.8 L (0.9-2) TSH 4.010 (0.300-4.500) uIu/ml Urine Color Urine Appearance (Clear) Urine pH (4.5-7.5) Ur Specific [place] (1.000-1.030) Urine Protein (Negative) Urine Glucose (UA) (Negative) Urine Ketones (Negative) Urine Blood (Negative) Urine Nitrite (Negative) Urine Bilirubin (Negative) Urine Urobilinogen (Negative) Ur Leukocyte Esterase (Negative) Urine WBC (Auto) (0-5) /hpf Urine RBC (Auto) (0-4) /hpf U Hyaline Cast (Auto) (0-5) /lpf U Epithel Cells (Auto) (0-5) /lpf Urine Bacteria (Auto) (Negative) COVID-19 Eval Order Administered Medications Discontinued Medications Acetaminophen (Acetaminophen 325 Mg Tab) 650 mg PO NOW STA Stop: 10/29/20 14:52 Last Admin: 10/29/20 15:26 Dose: 650 mg Documented by: [id number] Calcium Carbonate (Calcium Carbonate 500 Mg Chewable Tab) 1,500 mg PO NOW STA Stop: 10/29/20 15:23 Last Admin: 10/29/20 15:27 Dose: 1,500 mg Documented by: [id number] Furosemide (Furosemide 40 Mg/4 Ml Vial) 20 mg IV NOW STA Stop: 10/29/20 15:23 Last Admin: 10/29/20 15:27 Dose: 20 mg Documented by: [id number] Potassium Chloride (Potassium Chloride Crtab 20 Meq Tabcr) 40 meq PO NOW STA Stop: 10/29/20 15:23 Last Admin: 10/29/20 15:27 Dose: 40 meq Documented by: [id number] Tramadol HCl (Tramadol Hcl 50 Mg Tablet) 25 mg PO NOW STA Stop: 10/29/20 14:52 Last Admin: 10/29/20 15:26 Dose: 25 mg Documented by: [id number] Imaging Data Radiologist's Impression: Chest X-Ray 10/29/20 14:22 XR chest 1V portable CLINICAL HISTORY: weakness COMPARISON STUDY: 08/07/2020 FINDINGS: The heart is enlarged. There are persistent and perhaps slightly dimi nished bilateral pleural effusions. There are associated bibasilar opacities likely atelectatic although an infectious/inflammatory process could appear similar. There is mild prominence of central vessels consistent with mild central pulmonary vascular congestion. Arthritic changes are present within the shoulders. IMPRESSION: 1. Cardiomegaly and radiographic evidence for mild congestive failure/fluid overload 2. Bilateral pleural effusions with associated basilar parenchymal opacities statistically atelectatic ACT 112: Negative or not required by law. Electronically signed by: Jean Lopes M.D. 10/29/2020 3:18 PM Discharge Plan Visit Data Chief Complaint: Swelling/Edema to Extremity Stated Complaint: SWELLING IN LEGS ED Provider: Jackson Gibson Discharge Problem: Bilateral edema of lower extremity, CHF (congestive heart failure), Hypokalemia, Hypocalcemia Forms Stand Alone Forms: [facility] [employer] Prescriptions Prescriptions: No Action allopurinol 300 mg tablet 300 mg PO QAM RF: 0 esomeprazole magnesium 40 mg capsule,delayed release(DR/EC) 40 mg PO QAM RF: 0 Eliquis 5 mg tablet 5 mg PO BID Qty: 60 RF: 3 metoprolol succinate 25 mg tablet extended release 24 hr 12.5 mg PO BID RF: 0 fluoxetine 10 mg capsule 10 mg PO DAILY RF: 0 ferrous sulfate 325 mg (65 mg iron) tablet 325 mg PO BID Qty: 60 RF: 0 Discharge Problem: CHF (congestive heart failure) Qualifiers: Heart failure type: unspecified Heart failure chronicity: acute on chronic Qualified Code(s): I50.9 - Heart failure, unspecified
[2020-10-29] MEDS ORDERED: ACETAMINOPHEN 325 MG TAB PO STA (14:51)
[2020-10-29] MEDS ORDERED: traMADol HCL 50 MG TABLET PO STA (14:51)
[2020-10-29 14:55] LABS: Basophils # (auto) 0.01 K/uL (0-0.2); Basophils % (auto) 0.1 %; Eosinophils # (auto) 0.11 K/uL (0-0.5); Eosinophils % (auto) 1.3 %; Hematocrit (blood only) 37.3 % (42-52); Hemoglobin 12.5 g/dL (14.0-18.0); Immature Granulocytes # (auto) 0.03 K/uL (0.00-0.02); Immature Granulocytes % (auto) 0.4 %; Lymphocytes # (auto) 1.15 K/uL (1.2-3.4); Lymphocytes % (auto) 13.5 %; Mean Corpuscular Hemoglobin 35.6 pg (25-34); Mean Corpuscular Hgb Conc 33.5 g/dL (32-36); Mean Corpuscular Volume 106.3 fL (80-100); Mean Platelet Volume 10.6 fL (7.4-10.4); Monocytes # (auto) 0.53 K/uL (0.11-0.59); Monocytes % (auto) 6.2 %; Neutrophils # (auto) 6.68 K/uL (1.4-6.5); Neutrophils % (auto) 78.5 %; Nucleated RBC # (auto) 0.04 K/uL (0-0); Nucleated RBC % (auto) 0.5 %; Platelet Count 203 K/uL (130-400); RDW Coefficient of Variation 18.9 % (11.5-14.5); RDW Standard Deviation 71.1 fL (36.4-46.3); Red Blood Count 3.51 M/uL (4.7-6.1); White Blood Count 8.51 K/uL (4.8-10.8)
[2020-10-29 15:14] LABS: Albumin Level 2.8 gm/dl (3.4-5.0); BUN Creatinine Ratio 25.1 (10-20); Calcium 8.2 mg/dl (8.5-10.1); Creatinine Clr Calc Pharmacy 37.8 ml/min; Est GFR (African American) 53.9 ml/min; Est GFR (Non-African American) 46.5 ml/min; Magnesium 1.9 mg/dl (1.8-2.4); Potassium 3.3 mmol/L (3.5-5.1)
--- NOTE | 2020-10-29 15:15 | Electrocardiogram Report ---
Test Reason : Blood Pressure : / mmHG Vent. Rate : 082 BPM Atrial Rate : 082 BPM P-R Int : 206 ms QRS Dur : 102 ms QT Int : 486 ms P-R-T Axes : 039 -59 -32 degrees QTc Int : 567 ms Sinus rhythm with occasional Premature ventricular complexes Left axis deviation Low voltage QRS Poor R wave progression, consider anterior OR vs. lead placement vs. LVH Prolonged QT Abnormal ECG When compared with ECG of 20-OCT-2020 04:47, Premature ventricular complexes are now Present Premature atrial complexes are no longer Present Confirmed by Gary Mosquera ([id number]) on 10/29/2020 3:15:03 PM Referred By: REFERRED SELF Confirmed By:Gary Mosquera
--- NOTE | 2020-10-29 15:19 | XRay Report ---
XR chest 1V portable CLINICAL HISTORY: weakness COMPARISON STUDY: 08/07/2020 FINDINGS: The heart is enlarged. There are persistent and perhaps slightly diminished bilateral pleur al effusions. There are associated bibasilar opacities likely atelectatic although an infectious/infl ammatory process could appear similar. There is mild prominence of central vessels consistent with mi ld central pulmonary vascular congestion. Arthritic changes are present within the shoulders. IMPRESSION: 1. Cardiomegaly and radiographic evidence for mild congestive failure/fluid overload 2. Bilateral pleural effusions with associated basilar parenchymal opacities statistically atelectati c ACT 112: Negative or not required by law. Electronically signed by: Jean Lopes M.D. 10/29/2020 3:18 PM
[2020-10-29] MEDS ORDERED: POTASSIUM CHLORIDE CRTAB 20 MEQ TABCR PO STA ×2 (15:22→18:09)
[2020-10-29] MEDS ORDERED: CALCIUM CARBONATE 500 MG CHEWABLE TAB PO STA (15:22)
[2020-10-29] MEDS ORDERED: FUROSEMIDE 40 MG/4 ML VIAL IV STA (15:22)
[2020-10-29 15:25] LABS: Albumin Globulin Ratio 0.8 (0.9-2); Bilirubin,Total 2.1 mg/dl (0.2-1); Globulin 3.4 gm/dl (2.5-4.0); Thyroid Stimulating Hormone 4.01 uIu/ml (0.300-4.500); Total Protein 6.2 gm/dl (6.4-8.2); Troponin I 0.136 ng/ml (0-0.045)
[2020-10-29 15:31] LABS: Appearance Urine Clear (Clear); Bacteria Urine Automated Negative (Negative); Blood Urine Negative (Negative); Color Urine Dark Yellow; Glucose Urine UA Negative (Negative); Ketones Urine Negative (Negative); Leukocyte Esterase Urine Trace (Negative); Nitrite Urine Negative (Negative); Protein Urine Trace (Negative); RBC Urine Automated 0-4 /hpf (0-4); Specific Gravity Urine 1.018 (1.000-1.030); Urobilinogen Urine Negative (Negative)
[2020-10-29 15:33] LABS: Bilirubin Urine 1+ (Negative)
[2020-10-29 15:34] LABS: INR 1.5 (0.9-1.1); Partial Thromboplastin Ratio 1.6; Partial Thromboplastin Time 42.1 Seconds (21.0-31.0); Prothrombin Time 14.8 Seconds (9.0-12.0)
--- NOTE | 2020-10-29 15:55 | History & Physical Report ---
Date of Service October 29, 2020 Assessment & Plan (1) Bilateral edema of lower extremity: Mr. Rhodes is an 89 year old male with a history of Hypertension, Mild LVH, Moderate Mitral Regurgitation, Chronic Diastolic CHF, Hypercholesterolemia, GERD, Chronic Renal Failure, Nephrolithiasis, history of Bladder Carcinoma, Gout, Prior GI Bleed, Diverticulosis, and Colonic Polyps who presents acutely to [facility] ER today with Bilateral Leg Edema and Pain, Acute Exacerbation of Chronic Diastolic CHF, and Hypokalemia. He is complaining of progressive lower extremity edema over the past 1 to 2 weeks with more rapid worsening over the past 24 to 48 hours. His legs are very swollen, sensitive and have started oozing serous fluid down near his ankles. He denies any fevers, chills, or rigors. He has had cellulitis previously. Additionally he developed some SOB and OSBORNE today. Patient states his body weight has been stable and that he follows a low sodium diet. He denies eating any salty foods recently or veering off of his low sodium diet. He is currently in rate controlled A-fib. CXR consistent with hypervolemia/CHF, his JVP is elevated, his body weight is up 4 pounds since he was seen on 10/15/20. He has a mildly elevated troponin I which is most likely secondary to demand ischemia. Patient has not had any angina pectoris or anginal equivalent symptoms. We had a long discussion regarding why significant swelling causes his legs do feel so sensitive and sore. He did treatment is getting rid of the edema, reducing his volume, thereby allowing his skin and skin structures to exchange gases and to be closer to their nutritional source in the bloodstream/capillaries. Recommend the followin. Admit to Med-Surg with telemetry. 2. Lasix 60 mg IV daily. 3. Replenish/supplement potassium. 4. Monitor daily I&O's, body weights. 5. 2 g low-sodium diet. 6. Monitor daily laboratories, keeping a close eye on renal function. 7. Analgesics as needed for leg pain. 8. Continue Eliquis for DVT prophylaxis. 9. Continue Toprol XL 12.5 mg b.i.d.. 10. IV antibiotic coverage. (2) Acute on chronic diastolic CHF (congestive heart failure): -- Manage as outlined above. (3) Atrial fibrillation, permanent: -- V-rate is well controlled. -- Continue Eliquis 5 mg b.i.d.. -- Continue Toprol XL 12.5 mg b.i.d.. (4) Hypokalemia: -- Replenish/supplement potassium. -- Monitor daily BMP. (5) Hypertension: Blood pressure appears to be controlled. -- Continue Toprol XL 12.5 mg b.i.d.. (6) Chronic kidney disease, stage 3: Followed by Dr. South. -- Monitor daily BMP and serum Mg levels. History of Present Illness Primary Care Provider: Moustapha Joshi MD Mr. Rhodes is an 89 year old male with a history of Hypertension, Mild LVH, Moderate Mitral Regurgitation, Chronic Diastolic CHF, Hypercholesterolemia, GERD, Chronic Renal Failure, Nephrolithiasis, history of Bladder Carcinoma, Gout, Prior GI Bleed, Diverticulosis, and Colonic Polyps who presents acutely to [facility] ER today complaining of Progressive Lower Extremity Edema over the past 1 to 2 weeks with more rapid worsening over the past 24 to 48 hours. His legs are very swollen, sensitive and have started oozing serous fluid down near his ankles. He denies any fevers, chills, or rigors. He has had cellulitis previously. Additionally he developed some SOB and OSBORNE today. Patient states his body weight has been stable and that he follows a low sodium diet. He denies eating any salty foods recently or veering off of his low sodium diet. He is currently in rate controlled A-fib. he denies any chest pain, heaviness, tightness, or pressure. He denies any orthopnea or PND. No recent palpitations. No syncope or near syncope. Patient is compliant with his medications. He has not had any adverse side effects. Allergies Allergy/AdvReac Type Severity Reaction Status Date / Time No Known Allergies Allergy Unknown Verified 10/29/20 14:47 Home Medications Medication Instructions Recorded Confirmed Type allopurinol 300 mg tablet 300 mg PO QAM tab 01/21/19 10/29/20 History esomeprazole magnesium 40 mg 40 mg PO QAM cap 01/21/19 10/29/20 History capsule,delayed release apixaban 5 mg tablet 5 mg PO BID #60 tab 07/26/20 10/29/20 Rx ferrous sulfate 325 mg (65 mg 325 mg PO BID #60 tab 10/15/20 10/29/20 Rx iron) tablet fluoxetine 10 mg capsule 10 mg PO DAILY 10/15/20 10/29/20 History metoprolol succinate 25 mg 12.5 mg PO BID tab 10/15/20 10/29/20 History tablet,extended release 24 hr Past Med/Surg History Medical History Abnormal cystoscopy Actinic keratosis Atrial fibrillation with rapid ventricular response (03/2020) Bilateral nephrolithiasis (2005) Bladder cancer (2016) Chronic kidney disease, stage 3 Elevated troponin Per cardiology note 08/05/20: (2) Elevated troponin: -mild elevation likely a supply demand mismatch and not coronary ischemia. 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 -did have elevated heart rate and low blood pressure while in the emergency room. GI bleed Gout Hearing loss Hematuria (2018) History of basal cell carcinoma (2016) Hypercholesteremia Male erectile disorder of organic origin Vitamin D deficiency Surgical History H/O pyloroplasty H/O shoulder surgery Hx laparoscopic cholecystectomy (08/06/20) Laparoscopic Cholecystectomy with Cholangiogram, Lysis of Adhesions Dr. Givens 08/06/2020 S/P bladder tumor excision with fulguration (2016) S/P knee surgery Status post ORIF of fracture of ankle Family History Grandfather Cancer Social History Smoking Status: Former smoker Age Quit Using Tobacco: 32; Second Hand Exposure: No; Hx Alcohol Use: Yes Alcohol type: hard liquor Hx Substance Use: No Preferred Language: Italian Communication Ability: Effective Print Traffic Manager Required: No Beliefs That Will Affect Care: None marital status: Current Living Situation: Spouse Current Living Situation Comment: lives w/ current occupational status: retired Feels Safe at Home: Yes Assistive Devices: Glasses and Walker Review of Systems Review of Systems: All systems reviewed & are unremarkable except as noted in Subjective Physical Exam Physical Exam: SpO2 is 97% on 2 L/min via NC. GENERAL: Patient is in no acute distress. HEENT: Head is atraumatic, normocephalic. EOM's intact. Sclerae anicteric. Facies symmetric. No perioral cyanosis. NECK: No JVD. JVP is elevated. Carotid upstrokes are + 2 bilaterally. No bruits are noted. CHEST/LUNGS: Rales are present in bilateral bases, right greater than left. CVS: S1 and S2 are irregularly irregular at 86 bpm with a grade 3/6 apical holosystolic murmur. No obvious diastolic murmurs. No gallops or rubs. PMI is nondisplaced. No lifts, heaves, or thrills. No abdominal aortic or renal bruits. ABDOMINAL EXAM: Bowel sounds are present. EXTREMITIES: +2 pitting edema into posterior thighs. +2 to +3 pitting edema of the legs. No clubbing or cyanosis. Intact radial pulses bilaterally. NEUROLOGIC EXAM: Patient is awake, interactive, but confused. Speech is clear. DERMATOLOGIC EXAM: Right anteromedial leg is erythematous but is not hot to the touch. He does have small vesicles and some open areas oozing a serous fluid. Entry Writer: -- Rate controlled A-Fib with V-rates in the mid to upper 80's. Results & Data Results & Data ([facility]) Vital Signs (Past 12 Hours) Vital Signs Temp Pulse Resp BP Pulse Ox 10/29/20 15:30 82 12 111/73 97 10/29/20 15:00 83 5 L 105/77 96 10/29/20 14:42 85 19 96 10/29/20 14:40 82 12 10/29/20 14:30 83 18 104/76 92 10/29/20 14:20 82 22 93 10/29/20 14:10 82 18 94 10/29/20 14:00 82 21 94/70 L 95 10/29/20 13:50 81 23 92 10/29/20 13:40 81 22 95 10/29/20 13:30 81 16 105/75 96 10/29/20 13:28 82 16 103/72 95 10/29/20 13:27 82 16 10/29/20 13:10 80 16 95 10/29/20 13:00 81 12 104/73 94 10/29/20 12:58 81 15 97 10/29/20 12:54 81 14 99/71 L 97 10/29/20 12:11 36.4 C L 87 20 102/73 93 Laboratory Results Laboratory Results - last 24 hr 10/29/20 10/29/20 10/29/20 13:28 15:05 15:40 WBC RBC Hgb Hct MCV MCH MCHC RDW Std Deviation RDW Coeff of [place] Plt Count MPV Immature Gran % (Auto) Neut % (Auto) Lymph % (Auto) [place] % (Auto) Eos % (Auto) Baso % (Auto) Neut # (Auto) Lymph # (Auto) [place] # (Auto) Eos # (Auto) Baso # (Auto) Immature Gran # (Auto) Absolute Nucleated RBC Nucleated RBC % (auto) PT 14.8 H INR 1.5 H APTT 42.1 H PTT Ratio 1.6 Sodium Potassium Chloride Carbon Dioxide Anion Gap BUN Creatinine Est Cr Clr Drug Dosing Est GFR ( Amer) Est GFR (Non-Af Amer) BUN/Creatinine Ratio Glucose Calcium Magnesium Total Bilirubin AST ALT Alkaline Phosphatase Troponin I Total Protein Albumin Globulin Albumin/Globulin Ratio TSH Urine Color Dark Yellow Urine Appearance Clear Urine pH 5.0 Ur Specific [place] 1.018 Urine Protein Trace H Urine Glucose (UA) Negative Urine Ketones Negative Urine Blood Negative Urine Nitrite Negative Urine Bilirubin 1+ H Urine Urobilinogen Negative Ur Leukocyte Esterase Trace H Urine WBC (Auto) 1-5 Urine RBC (Auto) 0-4 U Hyaline Cast (Auto) 1-5 U Epithel Cells (Auto) 10-20 H Urine Bacteria (Auto) Negative COVID-19 Eval Order Covid19 at [facility] SARS-CoV-2 (PCR) 10/29/20 10/29/20 10/29/20 15:40 Unknown Unknown WBC 8.51 RBC 3.51 L Hgb 12.5 L Hct 37.3 L MCV 106.3 H MCH 35.6 H MCHC 33.5 RDW Std Deviation 71.1 H RDW Coeff of [place] 18.9 H Plt Count 203 MPV 10.6 H Immature Gran % (Auto) 0.4 Neut % (Auto) 78.5 Lymph % (Auto) 13.5 [place] % (Auto) 6.2 Eos % (Auto) 1.3 Baso % (Auto) 0.1 Neut # (Auto) 6.68 H Lymph # (Auto) 1.15 L [place] # (Auto) 0.53 Eos # (Auto) 0.11 Baso # (Auto) 0.01 Immature Gran # (Auto) 0.03 H Absolute Nucleated RBC 0.04 H Nucleated RBC % (auto) 0.5 PT INR APTT PTT Ratio Sodium 142 Potassium 3.3 L Chloride 108 H Carbon Dioxide 26 Anion Gap 8.0 BUN 34 H Creatinine 1.35 Est Cr Clr Drug Dosing 37.8 Est GFR ( Amer) 53.9 Est GFR (Non-Af Amer) 46.5 BUN/Creatinine Ratio 25.1 H Glucose 101 H Calcium 8.2 L Magnesium 1.9 Total Bilirubin 2.1 H AST 37 ALT 68 Alkaline Phosphatase 165 H Troponin I 0.136 H* Total Protein 6.2 L Albumin 2.8 L Globulin 3.4 Albumin/Globulin Ratio 0.8 L TSH 4.010 Urine Color Urine Appearance Urine pH Ur Specific [place] Urine Protein Urine Glucose (UA) Urine Ketones Urine Blood Urine Nitrite Urine Bilirubin Urine Urobilinogen Ur Leukocyte Esterase Urine WBC (Auto) Urine RBC (Auto) U Hyaline Cast (Auto) U Epithel Cells (Auto) Urine Bacteria (Auto) COVID-19 Eval Order SARS-CoV-2 (PCR) Pending Diagnostic Findings CHEST X-RAY 10/29/20: The heart is enlarged. There are persistent and perhaps slightly diminished bilateral pleural effusions. There are associated bibasilar opacities likely atelectatic although an infectious/inflammatory process could appear similar. There is mild prominence of central vessels consistent with mild central pulmonary vascular congestion. Arthritic changes are present within the gerald ulders. IMPRESSION: 1. Cardiomegaly and radiographic evidence for mild congestive failure/fluid overload. 2. Bilateral pleural effusions with associated basilar parenchymal opacities statistically atelectatic. Medications Administered Medications allopurinol 300 mg tablet 300 mg PO QAM tab 01/21/19 [History Confirmed 10/10 05/31] esomeprazole magnesium 40 mg capsule,delayed release 40 mg PO QAM cap 01/21/19 [History Confirmed 10/29/20] apixaban 5 mg tablet 5 mg PO BID #60 tab 07/26/20 [Rx Confirmed 10/29/20] ferrous sulfate 325 mg (65 mg iron) tablet 325 mg PO BID #60 tab 10/15/20 [Rx Confirmed 10/29/20] fluoxetine 10 mg capsule 10 mg PO DAILY 10/15/20 [History Confirmed 10/29/20] metoprolol succinate 25 mg tablet,extended release 24 hr 12.5 mg PO BID tab 10/15/20 [History Confirmed 10/29/20] Code Status & VTE Plan Code Status Full Code VTE Prophylaxis Plan VTE Prophylaxis will be ordered: Yes Supervising Physician Co-Signing Physician Notes Discussed with JUSTIN, reviewed his documentation. Agree with above. Patient presents with significant lower extremity edema. Patient was not on diuretics prior to presentation. I do see an echo report from 08/04/2020 which shows LV hypertrophy and an EF of 45-50% along with moderate mitral and tricuspid regurgitation. Plan to diuresis patient as well as provide symptomatic care for his extremity edema. Patient follows Dr. Lofton and will ask him to evaluate further recommendations. PG Care Time/CCT Total # of Minutes Spent Total Time Spent with Patient: Total time spent is greater than 50% in coordination of care (as documented) at patient's floor/unit and/or counseling patient:45 Coding Level of Care Code 07969 Initial Inpt Care Lvl 3 Diagnoses Bilateral edema of lower extremity R60.0 Acute on chronic diastolic CHF (congestive heart failure) I50.33 Atrial fibrillation, permanent I48.21 Hypokalemia E87.6 Hypertension I10 Chronic kidney disease, stage 3 N18.32 Chronic kidney disease stage 3 subtype: stage 3b (GFR 30-44) Time Spent (min) 60 (1) Chronic kidney disease, stage 3 Chronic kidney disease stage 3 subtype: stage 3b (GFR 30-44) Qualified Code(s): N18.32 - Chronic kidney disease, stage 3b
[2020-10-29] MEDS ORDERED: MoRPHine SULFATE 2 MG/ML CARP IV STA (16:11)
[2020-10-29] MEDS ORDERED: MAGNESIUM HYDROXIDE SUSP 30 ML UDC PO PRN (17:55)
[2020-10-29] MEDS ORDERED: ONDANSETRON INJ 2 MG/ML 2 ML VIAL IV PRN (17:55)
[2020-10-29] MEDS ORDERED: POLYETHYLENE (MIRALAX) 17 GM PACK PO PRN (17:55)
[2020-10-29] MEDS ORDERED: ALUMINUM/MAGNESIUM SUSP 30 ML UDC PO PRN (17:55)
[2020-10-29] MEDS ORDERED: NITROGLYCERIN SL 0.4 MG/TAB TAB SL PRN (17:55)
[2020-10-29] MEDS: FUROSEMIDE 60 MG in SYRINGE 0 ML IV SCH (20:32)
[2020-10-29] MEDS: ceFAZolin 1000MG 1,000 MG/7.5 ML SYR IV SCH (20:32)
[2020-10-29] MEDS: APIXABAN 5 MG TABLET PO SCH (20:33)
[2020-10-29] MEDS: METOPROLOL SUCC 25MG EXT REL TAB PO SCH (20:33)
[2020-10-29] MEDS: FERROUS SULFATE 325 MG TAB PO SCH (20:34)
[2020-10-29] MEDS: POTASSIUM CHLORIDE CRTAB 20 MEQ TABCR PO SCH (20:35)
[2020-10-29] MEDS: ZOLPIDEM TARTRATE 5 MG TAB PO PRN (20:38)
[2020-10-30] MEDS: ceFAZolin 1000MG 1,000 MG/7.5 ML SYR IV SCH ×3 (02:26→20:08)
[2020-10-30 07:38] LABS: Basophils # (auto) 0.02 K/uL (0-0.2); Basophils % (auto) 0.3 %; Eosinophils # (auto) 0.11 K/uL (0-0.5); Eosinophils % (auto) 1.8 %; Hematocrit (blood only) 35.5 % (42-52); Hemoglobin 11.8 g/dL (14.0-18.0); Immature Granulocytes # (auto) 0.03 K/uL (0.00-0.02); Immature Granulocytes % (auto) 0.5 %; Lymphocytes # (auto) 1.33 K/uL (1.2-3.4); Lymphocytes % (auto) 21.2 %; Mean Corpuscular Hemoglobin 34.9 pg (25-34); Mean Corpuscular Hgb Conc 33.2 g/dL (32-36); Mean Platelet Volume 10.3 fL (7.4-10.4); Monocytes # (auto) 0.54 K/uL (0.11-0.59); Monocytes % (auto) 8.6 %; Neutrophils # (auto) 4.23 K/uL (1.4-6.5); Neutrophils % (auto) 67.6 %; Platelet Count 176 K/uL (130-400); RDW Coefficient of Variation 18.7 % (11.5-14.5); Red Blood Count 3.38 M/uL (4.7-6.1); White Blood Count 6.26 K/uL (4.8-10.8)
[2020-10-30] MEDS ORDERED: LORazepam 0.5 MG TAB PO STA (08:11)
[2020-10-30 08:12] LABS: BUN Creatinine Ratio 25.5 (10-20); Calcium 8.2 mg/dl (8.5-10.1); Creatinine Clr Calc Pharmacy 41.2 ml/min; Est GFR (African American) 59.8 ml/min; Est GFR (Non-African American) 51.6 ml/min; Magnesium 1.7 mg/dl (1.8-2.4); Potassium 3.2 mmol/L (3.5-5.1)
[2020-10-30] MEDS: APIXABAN 5 MG TABLET PO SCH ×2 (08:14→20:08)
[2020-10-30] MEDS: POTASSIUM CHLORIDE CRTAB 20 MEQ TABCR PO SCH (08:14)
[2020-10-30] MEDS: FUROSEMIDE 60 MG in SYRINGE 0 ML IV SCH (08:14)
[2020-10-30] MEDS: FLUoxetine HCL 10 MG CAP PO SCH (08:15)
[2020-10-30] MEDS: METOPROLOL SUCC 25MG EXT REL TAB PO SCH ×2 (08:15→20:08)
[2020-10-30] MEDS: PANTOprazole 40 MG TAB PO SCH (08:15)
[2020-10-30] MEDS: FERROUS SULFATE 325 MG TAB PO SCH ×2 (08:15→20:08)
[2020-10-30] MEDS: allopurinoL 300 MG TAB PO SCH (08:16)
--- NOTE | 2020-10-30 13:37 | Cardiology Consultation ---
Date of Consultation October 30, 2020 Assessment & Plan (1) Leg edema: (2) Acute on chronic diastolic CHF (congestive heart failure): (3) Failure to thrive: (4) Chronic kidney disease, stage 3: (5) Paroxysmal A-fib: Patient well-known to me from both outpatient care and social context (we used to play poker together). Unfortunately, there has been quite a decline in his functional status as well as mentation over the past several months, etiology for this is unclear. Earlier this year he had atrial dysrhythmias which led to diastolic congestive heart failure, however his rhythm is now regular (probably sinus) with an unremarkable heart rate (much of his earlier difficulty was due to rapid ventricular response to atrial flutter). At one point, there was concern that amiodarone could be contributing to his general deterioration, but he has been off this for over 2 months now. He appears only minimally volume overloaded currently, likely he had a good diuresis overnight. His renal function is more favorable than in the past, so he should tolerate additional diuresis (which may be helpful to help clear his chronic pleural effusions). Since his hemodynamics are favorable and his volume status is rapidly improving, little to add in the way of cardiology recommendations. Would strongly recommend that he follow-up in heart failure clinic with Jennifer Odell PA-C to more closely monitor his volume status and hopefully prevent future acute exacerbations of his diastolic heart failure. History of Present Illness Attending Physician: Nathnaiel Patterson MD History of Present Illness 89-year-old man with paroxysmal atrial fibrillation (metoprolol/apixaban), diastolic congestive heart failure, chronic kidney disease, and generalized failure to thrive recently with episodic confusion, who was admitted yesterday with progressive edema and new onset dyspnea on exertion. He appears to have had a significant overnight diuresis (2 L negative) and his weight is near his recent historical low point. He denied any orthopnea or PND at home, stating that he could sleep lying flat. He denies any angina, subjective palpitations, orthostasis, presyncope, or s yncope. He did have worsening leg edema but has been quite inactive, there was some weeping open areas both lower extremities which were concerning to him. At the time of my exam, he was somewhat somnolent but had no complaints. He was aware of the date was October 30 but seem to think he had been in the hospital for a number of days. Allergies Allergy/AdvReac Type Severity Reaction Status Date / Time No Known Allergies Allergy Unknown Verified 10/29/20 14:47 Home Medications Medication Instructions Recorded Confirmed Type allopurinol 300 mg tablet 300 mg PO QAM tab 01/21/19 10/29/20 History esomeprazole magnesium 40 mg 40 mg PO QAM cap 01/21/19 10/29/20 History capsule,delayed release apixaban 5 mg tablet 5 mg PO BID #60 tab 07/26/20 10/29/20 Rx ferrous sulfate 325 mg (65 mg 325 mg PO BID #60 tab 10/15/20 10/29/20 Rx iron) tablet fluoxetine 10 mg capsule 10 mg PO DAILY 10/15/20 10/29/20 History metoprolol succinate 25 mg 12.5 mg PO BID tab 10/15/20 10/29/20 History tablet,extended release 24 hr Patient History Medical History Abnormal cystoscopy Actinic keratosis Atrial fibrillation with rapid ventricular response (03/2020) Bilateral nephrolithiasis (2005) Bladder cancer (2016) Chronic kidney disease, stage 3 Elevated troponin Per cardiology note 08/05/20: (2) Elevated troponin: -mild elevation likely a supply demand mismatch and not coronary ischemia. 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 -did have elevated heart rate and low blood pressure while in the emergency room. GI bleed Gout Hearing loss Hematuria (2018) History of basal cell carcinoma (2016) Hypercholesteremia Male erectile disorder of organic origin Vitamin D deficiency Surgical History H/O pyloroplasty H/O shoulder surgery Hx laparoscopic cholecystectomy (08/06/20) Laparoscopic Cholecystectomy with Cholangiogram, Lysis of Adhesions Dr. Givens 08/06/2020 S/P bladder tumor excision with fulguration (2016) S/P knee surgery Status post ORIF of fracture of ankle Family History Cancer Grandfather Social History Smoking Status: Unknown if ever smoked Age Quit Using Tobacco: 32; Second Hand Exposure: No; Do You Dip or Chew Tobacco: No; Tobacco Cessation Education Requested by Patient: No Hx Alcohol Use: No Hx Substance Use: No Preferred Language: Khmer Communication Ability: Impaired Campus Executive Director Required: No Beliefs That Will Affect Care: None marital status: Current Living Situation: Spouse Current Living Situation Comment: lives w/ current occupational status: retired Other Information That Helps Us Care for You: No Feels Safe at Home: Yes Safety Concerns: Feels Safe At This Time Assistive Devices: Walker Physical Exam Physical Exam: Elderly white male who appears somewhat chronically ill but not acutely distressed. Weight at or near his baseline. BP normotensive. Pulse 82 bm and regular. Skin: no ecchymoses or generalized lesions. HEENT: unremarkable. Neck: Jugular venous pulse quarter of the way to the angle of the jaw at 70 degrees, no carotid bruits. Lungs: Few basilar crackles, generally clear. No accessory muscle use. Cardiac: regular rhythm, 2/6 apical holosystolic murmur, no diastolic murmur or gallop. Abdomen: Nondistended. Extremities: trace-1+ pretibial edema, lower extremities bandaged (weeping areas) pulses intact. Neurologic: Interactive but somnolent, answers simle questions appropriately, grossly nonfocal. Results & Data ([facility]) Vital Signs (Past 12 Hours) Vital Signs Temp Pulse Pulse Resp BP Pulse Ox 10/30/20 07:36 97.7 F 90 18 115/80 95 10/30/20 07:30 87 10/30/20 04:04 96.4 F L 82 16 108/77 95 Laboratory Results Hemoglobin 11.8 with normal WBC and platelet count. Potassium low at 3.2, normal electrolytes, BUN 32, creatinine 1.24. Troponin 0 0.136 (at recent baseline for him). TSH normal. Diagnostic Findings ECG showed probable sinus rhythm at 82 bpm (very diminutive P waves but regular), poor R wave progression, occasional PVC. Compared with 10/20/2020 ECG, other than PVCs now present, no significant change. Chest x-ray on admission showed bilateral pleural effusions with atelectasis and mild increased pulmonary vasculature. No real change compared with a July 2020 chest x-ray, significantly more fluid than in March 2020 x-ray. Echocardiogram July 2020 showed EF 45 to 50% with moderate mitral and tricuspid regurgitation, no regional wall motion abnormalities. Compared with March 2020 echocardiogram, no significant change. PG Care Time/CCT Total # of Minutes Spent Total Time Spent with Patient: Total time spent is greater than 50% in coordination of care (as documented) at patient's floor/unit and/or counseling patient: Coding Level of Care Code 85395 Inpt Consult Level 4 Diagnoses Leg edema R60.0 Acute on chronic diastolic CHF (congestive heart failure) I50.33 Failure to thrive Chronic kidney disease, stage 3 N18.32 Chronic kidney disease stage 3 subtype: stage 3b (GFR 30-44) Paroxysmal A-fib I48.0 (1) Chronic kidney disease, stage 3 Chronic kidney disease stage 3 subtype: stage 3b (GFR 30-44) Qualified Code(s): N18.32 - Chronic kidney disease, stage 3b
--- NOTE | 2020-10-30 14:25 | Hospitalist Progress Note ---
Date of Service October 30, 2020 Assessment & Plan (1) Acute on chronic diastolic CHF (congestive heart failure): Echo in 07/2020 showed EF of 45 - 50%. - Diuresed well on 10/29 -> Net negative 3.5L. - Closely monitor Cr given large volume output. - Will get CHF PA to visit. Per primary stock checkerer, big decline in function recently. (2) Cellulitis: RLE with some erythema and warmth compared to left. Given he is on anticoagulation, DVT would be unlikely, but he also has memory issues, so possibly forgetting to take it. - Continue abx - Will get Doppler (3) Atrial fibrillation, permanent: In sinus/flutter on the monitor. - Continue apixaban - Continue beta-iris (4) Hypertension: BP today is 115/80. - Continue home beta-iris (5) Chronic kidney disease, stage 3: Baseline Cr ~1.0 - 1.2, eGFR ~50 - 65. - Presently at Cr of 1.25. - Monitor (6) DVT prophylaxis: Apixaban for afib Admission and Anticipated Discharge Date Admission Date: October 29, 2020 Subjective Anxious today. Feels he has been in the hospital for "3-4 days" and doesn't understand why he is here longer than other people. We discussed this extensively, and he was mildly reassured that he had only been in the hospital for a short while. Otherwise, he is doing well. Not shortness of breath, no pain in the legs. Reports no fevers/chills, chest pain, shortness of breath, abdominal pain, nausea, or vomiting. Physical Exam Constitutional: WD/WN, vitals as above Eyes: EOM intact bilaterally; no conjunctival abnormality ENMT: external ear and nose normal, oropharynx normal Neck: trachea midline, no thyromegaly normal visual inspection Respiratory: normal respiratory effort, lungs clear to auscultation no respiratory distress Cardiovascular: RRR, no murmur, no edema Gastrointestinal (Abdomen): Inspection/Auscultation: abdomen normal to inspection; abdomen not distended Musculoskeletal: no cyanosis or clubbing, extremities motor strength 5/5 Skin: no rashes, warm and dry Neurologic: moves all extremities and awake Psychiatric: Orientation: alert, oriented to person and cooperative Results & Data Results & Data ([facility]) Vital Signs (Past 12 Hours) Vital Signs Temp Pulse Pulse Resp BP Pulse Ox 10/30/20 07:36 36.5 C 90 18 115/80 95 10/30/20 07:30 87 10/30/20 04:04 35.8 C L 82 16 108/77 95 PG Care Time/CCT Total # of Minutes Spent Total Time Spent with Patient: Total time spent is greater than 50% in coordination of care (as documented) at patient's floor/unit and/or counseling patient: Coding Level of Care Code 07503 Subseq Hosp Care Lvl 3 Diagnoses Acute on chronic diastolic CHF (congestive heart failure) I50.33 Cellulitis L03.90 Atrial fibrillation, permanent I48.21 Hypertension I10 Chronic kidney disease, stage 3 N18.32 Chronic kidney disease stage 3 subtype: stage 3b (GFR 30-44) DVT prophylaxis Z29.9 (1) Chronic kidney disease, stage 3 Chronic kidney disease stage 3 subtype: stage 3b (GFR 30-44) Qualified Code(s): N18.32 - Chronic kidney disease, stage 3b
--- NOTE | 2020-10-30 15:49 | Ultrasound Report ---
ULTRASOUND RIGHT LOWER EXTREMITY VENOUS CLINICAL HISTORY: Right leg swelling. COMPARISON STUDY: No priors. TECHNIQUE: Real-time, grayscale, and color Doppler sonography of the deep veins of the right lower ex tremity was performed from the inguinal crease to the calf. Compression and augmentation were utilize d. FINDINGS: There is no sonographic evidence of deep venous thrombosis identified in the right lower ex tremity. The common femoral, superficial femoral, and popliteal veins are patent and normally manjit sible. The greater saphenous vein and the profunda femoris vein at the junction with the common femor al vein are clear. The visualized calf veins are patent. Atherosclerotic calcification is noted in th e right femoral artery. Soft tissue edema is seen in the right leg. IMPRESSION: There is no sonographic evidence of deep venous thrombosis identified in the right lower extremity. ACT 112: Negative or not required by law. Electronically signed by: Jd Nieves M.D. 10/30/2020 3:48 PM
[2020-10-31] MEDS: ZOLPIDEM TARTRATE 5 MG TAB PO PRN (01:56)
[2020-10-31] MEDS: ceFAZolin 1000MG 1,000 MG/7.5 ML SYR IV SCH ×3 (03:14→19:15)
[2020-10-31] MEDS: MoRPHine SULFATE 2 MG/ML CARP IV PRN (04:16)
[2020-10-31 06:48] LABS: Basophils # (auto) 0.01 K/uL (0-0.2); Basophils % (auto) 0.2 %; Eosinophils # (auto) 0.14 K/uL (0-0.5); Eosinophils % (auto) 2.1 %; Hematocrit (blood only) 35.8 % (42-52); Hemoglobin 11.9 g/dL (14.0-18.0); Immature Granulocytes # (auto) 0.01 K/uL (0.00-0.02); Immature Granulocytes % (auto) 0.2 %; Lymphocytes # (auto) 1.38 K/uL (1.2-3.4); Mean Corpuscular Hemoglobin 34.7 pg (25-34); Mean Corpuscular Hgb Conc 33.2 g/dL (32-36); Mean Corpuscular Volume 104.4 fL (80-100); Mean Platelet Volume 10.3 fL (7.4-10.4); Monocytes # (auto) 0.53 K/uL (0.11-0.59); Monocytes % (auto) 8.1 %; Neutrophils # (auto) 4.51 K/uL (1.4-6.5); Neutrophils % (auto) 68.4 %; Platelet Count 187 K/uL (130-400); RDW Coefficient of Variation 18.5 % (11.5-14.5); RDW Standard Deviation 69.7 fL (36.4-46.3); Red Blood Count 3.43 M/uL (4.7-6.1); White Blood Count 6.58 K/uL (4.8-10.8)
[2020-10-31 07:17] LABS: BUN Creatinine Ratio 20.9 (10-20); Calcium 8.1 mg/dl (8.5-10.1); Creatinine Clr Calc Pharmacy 33.6 ml/min; Est GFR (African American) 46.7 ml/min; Est GFR (Non-African American) 40.3 ml/min; Magnesium 1.8 mg/dl (1.8-2.4); Potassium 3.4 mmol/L (3.5-5.1)
[2020-10-31] MEDS: FLUoxetine HCL 10 MG CAP PO SCH (09:28)
[2020-10-31] MEDS: POTASSIUM CHLORIDE CRTAB 20 MEQ TABCR PO SCH (09:28)
[2020-10-31] MEDS: allopurinoL 300 MG TAB PO SCH (09:28)
[2020-10-31] MEDS: PANTOprazole 40 MG TAB PO SCH (09:28)
[2020-10-31] MEDS: FERROUS SULFATE 325 MG TAB PO SCH ×2 (09:28→20:27)
[2020-10-31] MEDS: APIXABAN 5 MG TABLET PO SCH ×2 (09:29→20:27)
[2020-10-31] MEDS: METOPROLOL SUCC 25MG EXT REL TAB PO SCH ×2 (09:29→20:28)
--- NOTE | 2020-10-31 13:13 | Hospitalist Progress Note ---
Date of Service October 31, 2020 Assessment & Plan (1) Acute on chronic diastolic CHF (congestive heart failure): Echo in 07/2020 showed EF of 45 - 50%. - Diuresed well on 10/29 -> Net negative 3.5L. Net 2.5 negative on 10/30. - Will get CHF PA to visit. 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 - Closely monitor Cr given large volume output. -> Cr up today to 1.5. Hold today's Lasix. (2) Cellulitis: RLE with some erythema and warmth compared to left. Doppler of right leg was negative for DVT on 10/30. - Continue abx -> Improving today. Less red. Will treat x 7 days for skin/soft tissue. Switch to Keflex on d/c. (3) Atrial fibrillation, permanent: In sinus/flutter on the monitor. - Continue apixaban - Continue beta-iris (4) Hypertension: BP today is 190/60. - Continue home beta-iris (5) Chronic kidney disease, stage 3: Baseline Cr ~1.0 - 1.2, eGFR ~50 - 65. - Presently at Cr of 1.5. - Monitor -> Now with acute kidney injury on CKD. (6) DVT prophylaxis: Apixaban for afib Admission and Anticipated Discharge Date Admission Date: October 29, 2020 Subjective Sleepier today. Feels well overall. Reports no fevers/chills, chest pain, shortness of breath, abdominal pain, nausea, or vomiting. Physical Exam Constitutional: WD/WN, vitals as above Eyes: EOM intact bilaterally; no conjunctival abnormality ENMT: external ear and nose normal, oropharynx normal Neck: trachea midline, no thyromegaly normal visual inspection Respiratory: normal respiratory effort, lungs clear to auscultation no respiratory distress Cardiovascular: RRR, no murmur, no edema Gastrointestinal (Abdomen): Inspection/Auscultation: abdomen normal to insp ection; abdomen not distended Musculoskeletal: no cyanosis or clubbing, extremities motor strength 5/5 Skin: no rashes, warm and dry Neurologic: moves all extremities and awake Psychiatric: Orientation: oriented to person and cooperative; + not alert Results & Data Results & Data ([facility]) Vital Signs (Past 12 Hours) Vital Signs Temp Pulse Pulse Resp BP BP Pulse Ox 10/31/20 11:10 36.8 C 83 19 86/52 L 92/57 L 94 10/31/20 08:00 74 10/31/20 07:42 36.7 C 82 18 95/65 L 94 10/31/20 04:06 36.6 C 86 20 113/72 98 PG Care Time/CCT Total # of Minutes Spent Total Time Spent with Patient: Total time spent is greater than 50% in coordination of care (as documented) at patient's floor/unit and/or counseling patient: Coding Level of Care Code 50011 Subseq Hosp Care Lvl 3 Diagnoses Acute on chronic diastolic CHF (congestive heart failure) I50.33 Cellulitis L03.90 Atrial fibrillation, permanent I48.21 Hypertension I10 Chronic kidney disease, stage 3 N18.32 Chronic kidney disease stage 3 subtype: stage 3b (GFR 30-44) DVT prophylaxis Z29.9 (1) Chronic kidney disease, stage 3 Chronic kidney disease stage 3 subtype: stage 3b (GFR 30-44) Qualified Code(s): N18.32 - Chronic kidney disease, stage 3b
[2020-11-01] MEDS: MoRPHine SULFATE 2 MG/ML CARP IV PRN ×2 (00:31→19:43)
[2020-11-01] MEDS: ZOLPIDEM TARTRATE 5 MG TAB PO PRN (00:31)
[2020-11-01] MEDS: ceFAZolin 1000MG 1,000 MG/7.5 ML SYR IV SCH ×3 (02:00→18:25)
[2020-11-01] MEDS: FERROUS SULFATE 325 MG TAB PO SCH ×2 (08:11→21:09)
[2020-11-01] MEDS: POTASSIUM CHLORIDE CRTAB 20 MEQ TABCR PO SCH (08:11)
[2020-11-01] MEDS: allopurinoL 300 MG TAB PO SCH (08:11)
[2020-11-01] MEDS: METOPROLOL SUCC 25MG EXT REL TAB PO SCH ×2 (08:11→21:08)
[2020-11-01] MEDS: FLUoxetine HCL 10 MG CAP PO SCH (08:11)
[2020-11-01] MEDS: PANTOprazole 40 MG TAB PO SCH (08:11)
[2020-11-01] MEDS: APIXABAN 5 MG TABLET PO SCH ×2 (08:11→21:09)
[2020-11-01 08:16] LABS: Basophils # (auto) 0.02 K/uL (0-0.2); Basophils % (auto) 0.3 %; Eosinophils # (auto) 0.18 K/uL (0-0.5); Eosinophils % (auto) 2.5 %; Hematocrit (blood only) 36.8 % (42-52); Hemoglobin 12.2 g/dL (14.0-18.0); Immature Granulocytes # (auto) 0.05 K/uL (0.00-0.02); Immature Granulocytes % (auto) 0.7 %; Lymphocytes # (auto) 1.55 K/uL (1.2-3.4); Lymphocytes % (auto) 21.8 %; Mean Corpuscular Hemoglobin 35.2 pg (25-34); Mean Corpuscular Hgb Conc 33.2 g/dL (32-36); Mean Corpuscular Volume 106.1 fL (80-100); Monocytes # (auto) 0.58 K/uL (0.11-0.59); Monocytes % (auto) 8.2 %; Neutrophils # (auto) 4.72 K/uL (1.4-6.5); Neutrophils % (auto) 66.5 %; Platelet Count 187 K/uL (130-400); RDW Coefficient of Variation 18.2 % (11.5-14.5); RDW Standard Deviation 70.6 fL (36.4-46.3); Red Blood Count 3.47 M/uL (4.7-6.1)
[2020-11-01 08:50] LABS: BUN Creatinine Ratio 22.8 (10-20); Calcium 8.3 mg/dl (8.5-10.1); Creatinine Clr Calc Pharmacy 39.1 ml/min; Est GFR (Non-African American) 49.2 ml/min; Magnesium 1.8 mg/dl (1.8-2.4); Potassium 3.9 mmol/L (3.5-5.1)
--- NOTE | 2020-11-01 13:42 | Hospitalist Progress Note ---
Date of Service November 01, 2020 Assessment & Plan (1) Acute on chronic diastolic CHF (congestive heart failure): Echo in 07/2020 showed EF of 45 - 50%. - Diuresed well on 10/29 -> Net negative 3.5L. Net 2.5 negative on 10/30. - Will get CHF PA to visit if possible. She may be off. Per primary c ardiologist, big decline in function recently. - Paused diuresis on 10/31 for higher Cr. Will give lower dose of Lasix today. (2) Cellulitis: RLE with some erythema and warmth compared to left. Doppler of right leg was negative for DVT on 10/30. - Continue abx -> Improving today. Less red. Will treat x 7 days for skin/soft tissue. Switch to Keflex on d/c. (3) Atrial fibrillation, permanent: In sinus/flutter on the monitor. - Continue apixaban - Continue beta-iris (4) Hypertension: BP today is 100/70. - Continue home beta-iris (5) Chronic kidney disease, stage 3: Baseline Cr ~1.0 - 1.2, eGFR ~50 - 65. - Presently at Cr of 1.3. - Monitor -> Now with acute kidney injury on CKD. (6) DVT prophylaxis: Apixaban for afib Admission and Anticipated Discharge Date Admission Date: October 29, 2020 Subjective Pretty confused today. He's not sure why still here. Does not have any concerns today. Reports no fevers/chills, chest pain, shortness of breath, abdominal pain, nausea, or vomiting. Physical Exam Constitutional: WD/WN, vitals as above Eyes: EOM intact bilaterally; no conjunctival abnormality ENMT: external ear and nose normal, oropharynx normal Neck: trachea midline, no thyromegaly normal visual inspection Respiratory: normal respiratory effort, lungs clear to auscultation no respiratory distress Cardiovascular: RRR, no murmur, no edema Gastrointestinal (Abdomen): Inspection/Auscultation: abdomen normal to inspection; abdomen not distended Musculoskeletal: no cyanosis or clubbing, extremities motor strength 5/5 Skin: no rashes, warm and dry Neurologic: moves all extremities and awake Psychiatric: Orientation: alert, oriented to person and cooperative Results & Data Results & Data ([facility]) Vital Signs (Past 12 Hours) Vital Signs Temp Pulse Resp BP BP Pulse Ox 11/01/20 11:20 36.7 C 52 L 18 103/69 97 11/01/20 07:31 36.7 C 90 20 101/72 95 PG Care Time/CCT Total # of Minutes Spent Total Time Spent with Patient: Total time spent is greater than 50% in coordination of care (as documented) at patient's floor/unit and/or counseling patient: Coding Level of Care Code 39861 Subseq Hosp Care Lvl 2 Diagnoses Acute on chronic diastolic CHF (congestive heart failure) I50.33 Cellulitis L03.90 Atrial fibrillation, permanent I48.21 Hypertension I10 Chronic kidney disease, stage 3 N18.32 Chronic kidney disease stage 3 subtype: stage 3b (GFR 30-44) DVT prophylaxis Z29.9 (1) Chronic kidney disease, stage 3 Chronic kidney disease stage 3 subtype: stage 3b (GFR 30-44) Qualified Code(s): N18.32 - Chronic kidney disease, stage 3b
[2020-11-01] MEDS ORDERED: FUROSEMIDE 40 MG in SYRINGE 0 ML IV ONE (14:15)
--- NOTE | 2020-11-02 00:28 | Communication Note ---
Date of Service: November 02, 2020 Subjective: nursing notified me that the patient had an unwitnessed fall Objective: BP slightly low, othewise wnl. head: NCAT - in no distress Neuro: CN II-XII intact A/P: CT-H ordered (no acute changes seen) - patient has a bed alarm in place Resident Activity Tracking Resident Involvement: Resident Care Provided Care Provided: Adult Hospital Medicine
[2020-11-02] MEDS: ACETAMINOPHEN 325 MG TAB PO PRN (00:35)
[2020-11-02] MEDS: ZOLPIDEM TARTRATE 5 MG TAB PO PRN (01:42)
[2020-11-02] MEDS: ceFAZolin 1000MG 1,000 MG/7.5 ML SYR IV SCH ×3 (03:10→21:00)
--- NOTE | 2020-11-02 06:36 | CT Scan Report ---
CT head/brain wo con CLINICAL HISTORY: 89 years-old Male with fall. Acute head injury status post fall TECHNIQUE: Multiple axial CT images of the head were obtained without contrast. A dose lowering tech nique was utilized adhering to the principles of ALARA. CT DOSE: 614.27 mGy.cm COMPARISON: None. FINDINGS: No acute intracranial hemorrhage, midline shift, intracranial mass, hydrocephalus, territorial ischem ia or abnormal extra-axial collection. Age-related involutional changes. White matter hypodensities s uggestive of chronic microvascular ischemic disease. The calvarium is intact. There is a subcentimeter calcification present involving the posterior super ior aspect of the left globe. Prior bilateral lens repair. The paranasal sinuses, mastoid air cells, and middle ear cavities are clear. IMPRESSION: No acute intracranial abnormality. ACT 112: Negative or not required by law. The above report was generated using voice recognition software. It may contain grammatical, syntax o r spelling errors. Electronically signed by: Gabriel Beltran M.D. 11/02/2020 6:34 AM
[2020-11-02 06:42] LABS: Hemoglobin 11.6 g/dL (14.0-18.0); Mean Corpuscular Hemoglobin 35.4 pg (25-34); Mean Corpuscular Hgb Conc 33.1 g/dL (32-36); Mean Corpuscular Volume 106.7 fL (80-100); Platelet Count 193 K/uL (130-400); RDW Coefficient of Variation 17.7 % (11.5-14.5); RDW Standard Deviation 68.4 fL (36.4-46.3); Red Blood Count 3.28 M/uL (4.7-6.1); White Blood Count 6.42 K/uL (4.8-10.8)
[2020-11-02 07:19] LABS: BUN Creatinine Ratio 23.4 (10-20); Creatinine Clr Calc Pharmacy 37.4 ml/min; Est GFR (African American) 53.9 ml/min; Est GFR (Non-African American) 46.5 ml/min; Magnesium 1.7 mg/dl (1.8-2.4); Potassium 3.9 mmol/L (3.5-5.1)
[2020-11-02] MEDS: FLUoxetine HCL 10 MG CAP PO SCH (09:31)
[2020-11-02] MEDS: APIXABAN 5 MG TABLET PO SCH ×2 (09:31→21:04)
[2020-11-02] MEDS: PANTOprazole 40 MG TAB PO SCH (09:31)
[2020-11-02] MEDS: POTASSIUM CHLORIDE CRTAB 20 MEQ TABCR PO SCH (09:31)
[2020-11-02] MEDS: FERROUS SULFATE 325 MG TAB PO SCH ×2 (09:31→21:02)
[2020-11-02] MEDS: METOPROLOL SUCC 25MG EXT REL TAB PO SCH ×2 (09:31→21:01)
[2020-11-02] MEDS: allopurinoL 300 MG TAB PO SCH (09:31)
[2020-11-02] MEDS ORDERED: FUROSEMIDE 40 MG TAB PO ONE (13:29)
--- NOTE | 2020-11-02 13:29 | Hospitalist Progress Note ---
Date of Service November 02, 2020 Assessment & Plan (1) Acute on chronic diastolic CHF (congestive heart failure): Echo in 07/2020 showed EF of 45 - 50%. - Diuresed well on 10/29 -> Net negative 3.5L. Net 2.5 negative on 10/30. - Will get CHF PA to visit if possible. She may be off. Per primary c ardiologist, big decline in function recently. - Paused diuresis on 10/31 for higher Cr. Will give Lasix 40 mg PO today. (2) Cellulitis: RLE with some erythema and warmth compared to left. Doppler of right leg was negative for DVT on 10/30. - Continue abx -> Improving today. Less red. Will treat x 7 days for skin/soft tissue. Switch to Keflex on d/c. (3) Atrial fibrillation, permanent: In sinus/flutter on the monitor. - Continue apixaban - Continue beta-iris (4) Hypertension: BP today is 100/70. - Continue home beta-iris (5) Chronic kidney disease, stage 3: Baseline Cr ~1.0 - 1.2, eGFR ~50 - 65. - Presently at Cr of 1.3. - Monitor -> Back to nearly baseline. (6) DVT prophylaxis: Apixaban for afib Admission and Anticipated Discharge Date Admission Date: October 29, 2020 Subjective Doing well today. Reports no fevers/chills, chest pain, shortness of breath, abdominal pain, nausea, or vomiting. Physical Exam Constitutional: WD/WN, vitals as above Eyes: EOM intact bilaterally; no conjunctival abnormality ENMT: external ear and nose normal, oropharynx normal Neck: trachea midline, no thyromegaly normal visual inspection Respiratory: normal respiratory effort, lungs clear to auscultation no respiratory distress Cardiovascular: RRR, no murmur, no edema Gastrointestinal (Abdomen): Inspection/Auscultation: abdomen normal to inspection; abdomen not distended Musculoskeletal: no cyanosis or clubbing, extremities motor strength 5/5 Skin: no rashes, warm and dry Neurologic: moves all extremities and awake Psychiatric: Orientation: alert, oriented to person and cooperative Results & Data Results & Data ([facility]) Vital Signs (Past 12 Hours) Vital Signs Temp Pulse Resp BP BP Pulse Ox 11/02/20 11:38 36.5 C 90 20 104/71 94 11/02/20 08:13 36.6 C 64 18 94/63 L 95 11/02/20 03:30 36.5 C 93 H 18 95/58 L 93 PG Care Time/CCT Total # of Minutes Spent Total Time Spent with Patient: Total time spent is greater than 50% in coordination of care (as documented) at patient's floor/unit and/or counseling patient: Coding Level of Care Code 24483 Subseq Hosp Care Lvl 2 Diagnoses Acute on chronic diastolic CHF (congestive heart failure) I50.33 Cellulitis L03.90 Atrial fibrillation, permanent I48.21 Hypertension I10 Chronic kidney disease, stage 3 N18.32 Chronic kidney disease stage 3 subtype: stage 3b (GFR 30-44) DVT prophylaxis Z29.9 (1) Chronic kidney disease, stage 3 Chronic kidney disease stage 3 subtype: stage 3b (GFR 30-44) Qualified Code(s): N18.32 - Chronic kidney disease, stage 3b
[2020-11-03] MEDS: ZOLPIDEM TARTRATE 5 MG TAB PO PRN ×2 (02:13→22:06)
[2020-11-03] MEDS: ceFAZolin 1000MG 1,000 MG/7.5 ML SYR IV SCH ×3 (03:16→18:28)
[2020-11-03 05:53] LABS: Hematocrit (blood only) 35.8 % (42-52); Hemoglobin 11.7 g/dL (14.0-18.0); Mean Corpuscular Hemoglobin 35.1 pg (25-34); Mean Corpuscular Hgb Conc 32.7 g/dL (32-36); Mean Corpuscular Volume 107.5 fL (80-100); Mean Platelet Volume 9.9 fL (7.4-10.4); Platelet Count 206 K/uL (130-400); RDW Coefficient of Variation 17.4 % (11.5-14.5); RDW Standard Deviation 68.3 fL (36.4-46.3); Red Blood Count 3.33 M/uL (4.7-6.1); White Blood Count 6.13 K/uL (4.8-10.8)
[2020-11-03 06:27] LABS: BUN Creatinine Ratio 23.4 (10-20); Calcium 7.9 mg/dl (8.5-10.1); Creatinine Clr Calc Pharmacy 37.5 ml/min; Est GFR (African American) 54.4 ml/min; Magnesium 1.7 mg/dl (1.8-2.4); Potassium 3.7 mmol/L (3.5-5.1)
[2020-11-03] MEDS: MAGNESIUM SULFATE / D5W 1 GM/100 ML BAG IV SCH ×3 (08:26→12:31)
[2020-11-03] MEDS: PANTOprazole 40 MG TAB PO SCH (08:43)
[2020-11-03] MEDS: POTASSIUM CHLORIDE CRTAB 20 MEQ TABCR PO SCH (08:43)
[2020-11-03] MEDS: METOPROLOL SUCC 25MG EXT REL TAB PO SCH ×2 (08:44→20:30)
[2020-11-03] MEDS: APIXABAN 5 MG TABLET PO SCH ×2 (08:44→20:30)
[2020-11-03] MEDS: allopurinoL 300 MG TAB PO SCH (08:44)
[2020-11-03] MEDS: FERROUS SULFATE 325 MG TAB PO SCH ×2 (08:44→20:30)
[2020-11-03] MEDS: FLUoxetine HCL 10 MG CAP PO SCH (08:44)
[2020-11-03] MEDS: FUROSEMIDE 40 MG TAB PO SCH (09:52)
--- NOTE | 2020-11-03 12:23 | Hospitalist Progress Note ---
Date of Service November 03, 2020 Assessment & Plan (1) Acute on chronic diastolic CHF (congestive heart failure): Echo in 07/2020 showed EF of 45 - 50%. - Diuresed well on 10/29 -> Net negative 3.5L. Net 2.5 negative on 10/30. - Referred to CHF PA. Unable to see in the hospital, but will try to arrange for quick outpatient f/u. Per primary a and p technician, big decline in function recently. - Paused diuresis on 10/31 for higher Cr. -> Started Lasix 40 mg PO daily yesterday and appears to have kept him nicely net even. Wt stable at 69.5 kg. Appears euvolemic on exam. (2) Cellulitis: RLE with some erythema and warmth compared to left. Doppler of right leg was negative for DVT on 10/30. - Continue abx -> Essentially resolved at this time. Will treat x 7 days for skin/soft tissue. Switch to Keflex on d/c. (End date: 11/05/2020) (3) Atrial fibrillation, permanent: In sinus/flutter on the monitor. - Continue apixaban - Continue beta-iris (4) Hypertension: BP today is 100/70. Overall stable. - Continue home beta-iris (5) Chronic kidney disease, stage 3: Baseline Cr ~1.0 - 1.2, eGFR ~50 - 65. - Presently at Cr of 1.35. - Monitor -> Suspect this will be new baseline with diuresis. (6) DVT prophylaxis: Apixaban for afib Admission and Anticipated Discharge Date Admission Date: October 29, 2020 Subjective No issues today. Awaiting discharge. No further leg swelling. Reports no fevers/chills, chest pain, shortness of breath, abdominal pain, nausea, or vomiting. Physical Exam Constitutional: WD/WN, vitals as above Eyes: EOM intact bilaterally; no conjunctival abnormality ENMT: external ear and nose normal, oropharynx normal Neck: trachea midline, no thyromegaly normal visual inspection Respiratory: normal respiratory effort, lungs clear to auscultation no respiratory distress Cardiovascular: RRR, no murmur, no edema Gastrointestinal (Abdomen): Inspection/Auscultation: abdomen normal to inspection; abdomen not distended Musculoskeletal: no cyanosis or clubbing, extremities motor strength 5/5 Skin: no rashes, warm and dry Neurologic: moves all extremities and awake Psychiatric: Orientation: alert, oriented to person and cooperative Results & Data Results & Data ([facility]) Vital Signs (Past 12 Hours) Vital Signs Temp Pulse Pulse Resp BP Pulse Ox 11/03/20 11:05 36.5 C 77 16 103/69 95 11/03/20 09:06 77 11/03/20 08:15 36.5 C 78 16 105/72 97 11/03/20 02:45 36.6 C 92 H 18 120/81 95 11/03/20 01:25 97 H PG Care Time/CCT Total # of Minutes Spent Total Time Spent with Patient: Total time spent is greater than 50% in coordination of care (as documented) at patient's floor/unit and/or counseling patient: Coding Level of Care Code 22929 Subseq Hosp Care Lvl 3 Diagnoses Acute on chronic diastolic CHF (congestive heart failure) I50.33 Cellulitis L03.90 Atrial fibrillation, permanent I48.21 Hypertension I10 Chronic kidney disease, stage 3 N18.32 Chronic kidney disease stage 3 subtype: stage 3b (GFR 30-44) DVT prophylaxis Z29.9 (1) Chronic kidney disease, stage 3 Chronic kidney disease stage 3 subtype: stage 3b (GFR 30-44) Qualified Code(s): N18.32 - Chronic kidney disease, stage 3b
[2020-11-03] MEDS: ACETAMINOPHEN 325 MG TAB PO PRN (22:06)
[2020-11-04] MEDS: ceFAZolin 1000MG 1,000 MG/7.5 ML SYR IV SCH ×3 (02:27→20:04)
[2020-11-04 06:00] LABS: Hematocrit (blood only) 34.7 % (42-52); Hemoglobin 11.6 g/dL (14.0-18.0); Mean Corpuscular Hemoglobin 34.7 pg (25-34); Mean Corpuscular Hgb Conc 33.4 g/dL (32-36); Mean Corpuscular Volume 103.9 fL (80-100); Mean Platelet Volume 9.9 fL (7.4-10.4); Platelet Count 195 K/uL (130-400); RDW Coefficient of Variation 17.2 % (11.5-14.5); RDW Standard Deviation 64.6 fL (36.4-46.3); Red Blood Count 3.34 M/uL (4.7-6.1); White Blood Count 6.75 K/uL (4.8-10.8)
[2020-11-04 06:26] LABS: BUN Creatinine Ratio 24.6 (10-20); Creatinine Clr Calc Pharmacy 36.7 ml/min; Est GFR (African American) 58.1 ml/min; Est GFR (Non-African American) 50.1 ml/min; Magnesium 2.1 mg/dl (1.8-2.4); Potassium 4.1 mmol/L (3.5-5.1)
[2020-11-04] MEDS: FERROUS SULFATE 325 MG TAB PO SCH ×2 (08:43→20:04)
[2020-11-04] MEDS: PANTOprazole 40 MG TAB PO SCH (08:43)
[2020-11-04] MEDS: FUROSEMIDE 40 MG TAB PO SCH (08:43)
[2020-11-04] MEDS: FLUoxetine HCL 10 MG CAP PO SCH (08:43)
[2020-11-04] MEDS: allopurinoL 300 MG TAB PO SCH (08:43)
[2020-11-04] MEDS: APIXABAN 5 MG TABLET PO SCH ×2 (08:44→20:04)
[2020-11-04] MEDS: METOPROLOL SUCC 25MG EXT REL TAB PO SCH ×2 (08:44→20:04)
[2020-11-04] MEDS: POTASSIUM CHLORIDE CRTAB 20 MEQ TABCR PO SCH (08:54)
--- NOTE | 2020-11-04 11:12 | Hospitalist Progress Note ---
Date of Service November 04, 2020 Assessment & Plan (1) Acute on chronic diastolic CHF (congestive heart failure): Echo in 07/2020 showed EF of 45 - 50%. - Diuresed well on 10/29 -> Net negative 3.5L. Net 2.5 negative on 10/30. - Referred to CHF PA. Unable to see in the hospital, but will try to arrange for quick outpatient f/u. Per primary oil gauger, big decline in function recently. - Paused diuresis on 10/31 for higher Cr. - Started Lasix 40 mg PO daily on 11/02 and appears to have kept him nicely net even. Wt on 11/04 was 74.3 kg. This was a good, standing, conscientious weight by the RN, so I think it is accurate. - Appears euvolemic to me, so would attempt to keep him around this weight after discharge. (2) Cellulitis: RLE with some erythema and warmth compared to left. Doppler of right leg was negative for DVT on 10/30. - Continue abx -> Resolved by 11/04. Will treat x 7 days for skin/soft tissue. Switch to Keflex on d/c. (End date: 11/05/2020) (3) Atrial fibrillation, permanent: In sinus/flutter on the monitor. - Continue apixaban - Continue beta-iris (4) Hypertension: BP today is 100/70 still. Overall stable. - Continue home beta-iris (5) Chronic kidney disease, stage 3: Baseline Cr ~1.0 - 1.2, eGFR ~50 - 65. - Presently at Cr of 1.3. - Monitor -> Suspect this will be new baseline with diuresis. (6) DVT prophylaxis: Apixaban for afib Admission and Anticipated Discharge Date Admission Date: October 29, 2020 Subjective No issues today. Awaiting discharge. No further leg swelling. Right leg improved/resolved. Reports no fevers/chills, chest pain, shortness of breath, abdominal pain, nausea, or vomiting. Physical Exam Constitutional: WD/WN, vitals as above Eyes: EOM intact bilaterally; no conjunctival abnormality ENMT: external ear and nose normal, oropharynx normal Neck: trachea midline, no thyromegaly normal visual inspection Respiratory: normal respiratory effort, lungs clear to auscultation no respiratory distress Cardiovascular: RRR, no murmur, no edema Gastrointestinal (Abdomen): Inspection/Auscultation: abdomen normal to inspection; abdomen not distended Musculoskeletal: no cyanosis or clubbing, extremities motor strength 5/5 Skin: no rashes, warm and dry Neurologic: moves all extremities and awake Psychiatric: Orientation: alert, oriented to person and cooperative Results & Data Results & Data ([facility]) Vital Signs (Past 12 Hours) Vital Signs Temp Pulse Resp BP BP Pulse Ox 11/04/20 08:02 36.8 C 79 16 103/70 94 11/04/20 02:29 36.5 C 84 18 113/74 96 PG Care Time/CCT Total # of Minutes Spent Total Time Spent with Patient: Total time spent is greater than 50% in coordination of care (as documented) at patient's floor/unit and/or counseling patient: Coding Level of Care Code 43008 Subseq Hosp Care Lvl 2 Diagnoses Acute on chronic diastolic CHF (congestive heart failure) I50.33 Cellulitis L03.90 Atrial fibrillation, permanent I48.21 Hypertension I10 Chronic kidney disease, stage 3 N18.32 Chronic kidney disease stage 3 subtype: stage 3b (GFR 30-44) DVT prophylaxis Z29.9 (1) Chronic kidney disease, stage 3 Chronic kidney disease stage 3 subtype: stage 3b (GFR 30-44) Qualified Code(s): N18.32 - Chronic kidney disease, stage 3b
[2020-11-04] MEDS: ACETAMINOPHEN 325 MG TAB PO PRN (16:22)
[2020-11-05] MEDS: ceFAZolin 1000MG 1,000 MG/7.5 ML SYR IV SCH ×2 (02:24→11:06)
[2020-11-05] MEDS: MoRPHine SULFATE 2 MG/ML CARP IV PRN ×2 (02:24→04:11)
[2020-11-05] MEDS ORDERED: DICLOFENAC SOD 1% GEL 100 GM TUBE EXT PRN (04:19)
[2020-11-05] MEDS ORDERED: MELATONIN 3 MG TAB PO PRN (05:03)
[2020-11-05 05:47] LABS: Hematocrit (blood only) 35.6 % (42-52); Mean Corpuscular Hgb Conc 33.7 g/dL (32-36); Mean Corpuscular Volume 103.8 fL (80-100); Mean Platelet Volume 9.7 fL (7.4-10.4); Platelet Count 199 K/uL (130-400); RDW Coefficient of Variation 17.1 % (11.5-14.5); RDW Standard Deviation 65.3 fL (36.4-46.3); Red Blood Count 3.43 M/uL (4.7-6.1)
[2020-11-05 06:17] LABS: BUN Creatinine Ratio 22.6 (10-20); Calcium 8.2 mg/dl (8.5-10.1); Creatinine Clr Calc Pharmacy 34.5 ml/min; Est GFR (African American) 48.3 ml/min; Est GFR (Non-African American) 41.6 ml/min; Potassium 3.9 mmol/L (3.5-5.1)
[2020-11-05 07:00] VITALS: O2SAT 95
[2020-11-05 07:35] VITALS: PULSE 79
[2020-11-05] MEDS: METOPROLOL SUCC 25MG EXT REL TAB PO SCH (08:35)
[2020-11-05] MEDS: allopurinoL 300 MG TAB PO SCH (08:38)
[2020-11-05] MEDS: FLUoxetine HCL 10 MG CAP PO SCH (08:38)
[2020-11-05] MEDS: POTASSIUM CHLORIDE CRTAB 20 MEQ TABCR PO SCH (08:38)
[2020-11-05] MEDS: FERROUS SULFATE 325 MG TAB PO SCH (08:38)
[2020-11-05] MEDS: PANTOprazole 40 MG TAB PO SCH (08:38)
[2020-11-05] MEDS: APIXABAN 5 MG TABLET PO SCH (08:38)
--- NOTE | 2020-11-05 10:02 | Discharge Summary ---
Date of Service November 05, 2020 Admission HPI Per Admitting Provider Mr. Rhodes is an 89 year old male with a history of Hypertension, Mild LVH, Moderate Mitral Regurgitation, Chronic Diastolic CHF, Hypercholesterolemia, GERD, Chronic Renal Failure, Nephrolithiasis, history of Bladder Carcinoma, Gout, Prior GI Bleed, Diverticulosis, and Colonic Polyps who presents acutely to [facility] ER today complaining of Progressive Lower Extremity Edema over the past 1 to 2 weeks with more rapid worsening over the past 24 to 48 hours. His legs are very swollen, sensitive and have started oozing serous fluid down near his ankles. He denies any fevers, chills, or rigors. He has had cellulitis pr eviously. Additionally he developed some SOB and OBSORNE today. Patient states his body weight has been stable and that he follows a low sodium diet. He denies eating any salty foods recently or veering off of his low sodium diet. He is currently in rate controlled A-fib. he denies any chest pain, heaviness, tightness, or pressure. He denies any orthopnea or PND. No recent palpitations. No syncope or near syncope. Patient is compliant with his medications. He has not had any adverse side effects. Principal Diagnosis ACUTE ON CHRONIC DIASTOLIC Congestive Heart Failure Discharge Exam Constitutional: WD/WN, vitals as above Eyes: EOM intact bilaterally; no conjunctival abnormality ENMT: external ear and nose normal, oropharynx normal Neck: trachea midline, no thyromegaly normal visual inspection Respiratory: normal respiratory effort, lungs clear to auscultation no respiratory distress Cardiovascular: RRR, no murmur, no edema Gastrointestinal (Abdomen): Inspection/Auscultation: abdomen normal to inspection; abdomen not distended Musculoskeletal: no cyanosis or clubbing, extremities motor strength 5/5 Skin: no rashes, warm and dry Neurologic: moves all extremities and awake Psychiatric: Orientation: alert, oriented to person and cooperative Discharge Data Allergies Allergy/AdvReac Type Severity Reaction Status Date / Time No Known Allergies Allergy Unknown Verified 10/29/20 14:47 Consultations 10/29/20 16:19 ED Decision to Admit Stat 10/29/20 17:55 Consult Cardiology Routine 10/31/20 13:13 [facility] [place]ine Ordered Studies 10/30/20 14:25 US venous doppler LE RT Urgent 11/01/20 21:56 CT head/brain wo con Urgent Hospital Course (1) Acute on chronic diastolic CHF (congestive heart failure): Echo in 07/2020 showed EF of 45 - 50%. - Diuresed well on 10/29 -> Net negative 3.5L. Net 2.5 negative on 10/30. - Referred to CHF PA. Unable to see in the hospital, but will try to arrange for quick outpatient f/u. Per primary audience coordinator, big decline in function recently. - Paused diuresis on 10/31 for higher Cr. - Started Lasix 40 mg PO daily on 11/02 and appears to have kept him nicely net even. Wt on 11/04 was 74.3 kg. This was a good, standing, conscientious weight by the RN, so I think it is accurate. - Appears euvolemic to me, so would attempt to keep him around this weight after discharge. On day of discharge: lasix daily appears to be a little too mcuh for Mr. Rhodes. Will transition this to q48h and will have CHF clinic followup closely with patient. will need to closely monitor BMP in 1 week to make sure potassium is at and adequate level. (2) Cellulitis: RLE with some erythema and warmth compared to left. Doppler of right leg was negative for DVT on 10/30. - Continue abx -> Resolved by 11/04. Will treat x 7 days for skin/soft tissue. Switch to Keflex on d/c. (End date: 11/05/2020) (3) Atrial fibrillation, permanent: In sinus/flutter on the monitor. - Continue apixaban - Continue beta-iris (4) Hypertension: BP today is 100/70 still. Overall stable. - Continue home beta-iris (5) Chronic kidney disease, stage 3: Baseline Cr ~1.0 - 1.2, eGFR ~50 - 65. - Presently at Cr of 1.3. - Monitor -> Suspect this will be new baseline with diuresis. (6) DVT prophylaxis: Apixaban for afib Total Time Total Time Spent Total Time Spent (In Minutes): 32 Total Time Includes: Examination of the Patient and Discharge Planning Discharge Plan Discharge Items Patient Disposition: Transfer Assisted Fac Reason For Visit: ACUTE DIASTOLIC CHF Discharge Diagnosis: Acute diastolic heart failure, right leg cellulitis Activity: Resume your previous activity Non-emergency contact: Primary Care Provider and Scissors Sharpener Call non-emergency contact if: your symptoms worsen Follow-up/Referrals: Melvin Lofton MD [Physician] - 11/13/20 2:15 pm Mita Odell PA-C [Physician [employer]] - (Ms. Odell will call you on Thursday or Thursday to discuss how you are doing.) Moustapha Joshi MD [Primary Care Provider] - Diet: Heart Healthy and Low Sodium (2gm) Addtl Attending Provider Instructions: Mr. Rhodes, You were admitted to the hospital with a "heart failure" exacerbation which is when your heart has trouble pumping effectively enough to prevent you from retaining fluids. We gave you Lasix (also called furosemide) to help get the fluid off, and this helped remove the fluid over a few days. We are sending you out of the hospital with a prescription of Lasix once per 48 HOURS to help keep the fluid off. On discharge, your weight has been stable at ~153 lbs (69.5 kg) for 2 days. This weight appears to be a good "dry" weight for you as your kidney function is good and you do not have swelling on the legs or shortness of breath. Ms. Odell from the [facility] office will contact you or your caregivers to see how you are doing and help keep your weight and kidney function stable. We also treated you for a cellulitis (skin infection) on your left leg. This probably came about from the swelling. The skin infection responded well to antibiotics, and we will keep you on oral antibiotics for a few more days to finish out the treatment course. Your last day will be 11/05/2020 with the evening dose. Pending Studies at Discharge: No Stand-Alone Forms: My [facility] Skilled Items Patient informed of condition?: Yes DNR: No Discharge Level of Care: Skilled Communicable Disease: No Discharge Prognosis: Stable Lines: None Urinary Catheter: No Medications and DC Order Prescriptions: New potassium chloride [Klor-Con M20] 20 mEq Tablet,Er Particles/Crystals 20 meq PO QAM Qty: 0 RF: 0 furosemide 40 mg Tablet 40 mg PO Q48H Qty: 0 RF: 0 Continued allopurinol 300 mg tablet 300 mg PO QAM RF: 0 esomeprazole magnesium 40 mg capsule,delayed release(DR/EC) 40 mg PO QAM RF: 0 Eliquis 5 mg tablet 5 mg PO BID Qty: 60 RF: 3 metoprolol succinate 25 mg tablet extended release 24 hr 12.5 mg PO BID RF: 0 fluoxetine 10 mg capsule 10 mg PO DAILY RF: 0 ferrous sulfate 325 mg (65 mg iron) tablet 325 mg PO BID Qty: 60 RF: 0 Discharge Orders: Discharge Order (Routine); Ordered 11/05/20 Ordered By: Tejas Saenz Admission Data Admit Date/Time: 10/29/20 16:23 Attending Provider: Tejas Saenz Admit Provider: Driss Shah Primary Care Provider: Moustapha Joshi Other Providers: Melvin Lofton ; Nathaniel Patterson ; Mita Odell ; Aminah Garza [facility] ; [facility] Other Interventions: Discharge Summary Assessment (RN) Last Done: 11/05/20 11:01 Coding Level of Care Code D/C Day Management >30 mins Diagnoses Acute on chronic diastolic CHF (congestive heart failure) I50.33 Cellulitis L03.90 Atrial fibrillation, permanent I48.21 Hypertension I10 Chronic kidney disease, stage 3 N18.32 Chronic kidney disease stage 3 subtype: stage 3b (GFR 30-44) DVT prophylaxis Z29.9
[2020-11-05 10:14] VITALS: BP 94/61; TEMP 97.7
[2020-11-05] MEDS: FUROSEMIDE 40 MG TAB PO SCH (10:14)
== END 2020-11-05 13:02 | DRG 291 ==
LOC: ED 11:59 → 2N 16:23 → SUATTDRO 16:23 → 2N 17:29

== ENCOUNTER 2020-11-19 11:27 | Inpatient (IN) ==
[2020-11-19 12:23] LABS: Eosinophils # (auto) 0.02 K/uL (0-0.5); Eosinophils % (auto) 0.2 %; Hematocrit (blood only) 40.6 % (42-52); Hemoglobin 13.1 g/dL (14.0-18.0); Immature Granulocytes # (auto) 0.02 K/uL (0.00-0.02); Immature Granulocytes % (auto) 0.2 %; Lymphocytes # (auto) 0.49 K/uL (1.2-3.4); Lymphocytes % (auto) 4.6 %; Mean Corpuscular Hemoglobin 35.1 pg (25-34); Mean Corpuscular Hgb Conc 32.3 g/dL (32-36); Mean Corpuscular Volume 108.8 fL (80-100); Mean Platelet Volume 9.8 fL (7.4-10.4); Monocytes # (auto) 0.21 K/uL (0.11-0.59); Neutrophils # (auto) 9.93 K/uL (1.4-6.5); Platelet Count 215 K/uL (130-400); RDW Coefficient of Variation 17.8 % (11.5-14.5); RDW Standard Deviation 70.8 fL (36.4-46.3); Red Blood Count 3.73 M/uL (4.7-6.1); White Blood Count 10.67 K/uL (4.8-10.8)
[2020-11-19] MEDS ORDERED: ACETAMINOPHEN 500 MG TAB PO STA (12:24)
[2020-11-19 12:30] LABS: INR 1.3 (0.9-1.1); Partial Thromboplastin Ratio 1.1; Partial Thromboplastin Time 30.2 Seconds (21.0-31.0); Prothrombin Time 12.7 Seconds (9.0-12.0)
--- NOTE | 2020-11-19 12:33 | Emergency Department Note ---
History of Present Illness General Chief complaint: Cardiac Assessment Time Seen by Provider: 11/19/20 12:16 Source: patient, EMS and RN notes reviewed Mode of arrival: EMS Limitations: altered mental status History of Present Illness Provider complaint: Rapid atrial fibrillation Onset (ago): hour(s) Location: chest Pain Consistency: + constant Quality: + other (Tachycardic) Relieved By: + none Associated symptoms: + cough and + fever/chills; no chest pain, no headaches, no nausea/vomiting and no shortness of breath This is an 89-year-old male who presents with atrial fibrillation with RVR. The patient is currently a resident at [facility]. He was going to be discharged tomorrow from there to home but today developed A. fib with RVR. His heart rate was elevated but he did not have any symptoms. He was very confused on arrival here and had a temperature of 38. He denies having headache, chest pain or trouble breathing. He does state that he had a bellyache earlier but it is better and he feels hungry. He has had a cough. History is unreliable due to patient's altered mental status. Patient has a history of atrial fibrillation and is on Eliquis. According to the nurse she has had both shots for his tetanus immunization. Home Medications Medication Instructions Recorded Confirmed Type allopurinol 300 mg tablet 300 mg PO QAM tab 01/21/19 11/19/20 History esomeprazole magnesium 40 mg 40 mg PO QAM cap 01/21/19 11/19/20 History capsule,delayed release apixaban 5 mg tablet 5 mg PO BID #60 tab 07/26/20 11/19/20 Rx ferrous sulfate 325 mg (65 mg 325 mg PO BID #60 tab 10/15/20 11/19/20 Rx iron) tablet fluoxetine 10 mg capsule 10 mg PO DAILY 10/15/20 11/19/20 History metoprolol succinate 25 mg 12.5 mg PO BID tab 10/15/20 11/19/20 History tablet,extended release 24 hr potassium chloride [Klor-Con M20] 20 meq PO QAM #0 tab 11/03/20 11/19/20 Rx docusate sodium 100 mg capsule 100 mg PO BID 11/15/20 11/19/20 History mirtazapine 15 mg tablet 15 mg PO DAILY 11/15/20 11/19/20 History furosemide 40 mg PO DAILY 11/19/20 11/19/20 History Allergies Allergy/AdvReac Type Severity Reaction Status Date / Time No Known Allergies Allergy Unknown Verified 11/19/20 12:21 Past Med/Surg History Medical History Abnormal cystoscopy Actinic keratosis Atrial fibrillation with rapid ventricular response (03/2020) Bilateral nephrolithiasis (2005) Bladder cancer (2016) Chronic kidney disease, stage 3 Elevated troponin Per cardiology note 08/05/20: (2) Elevated troponin: -mild elevation likely a supply demand mismatch and not coronary ischemia. 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 -did have elevated heart rate and low blood pressure while in the emergency room. GI bleed Gout Hearing loss Hematuria (2018) History of basal cell carcinoma (2016) Hypercholesteremia Male erectile disorder of organic origin Vitamin D deficiency Surgical History H/O pyloroplasty H/O shoulder surgery Hx laparoscopic cholecystectomy (08/06/20) Laparoscopic Cholecystectomy with Cholangiogram, Lysis of Adhesions Dr. Givens 08/06/2020 S/P bladder tumor excision with fulguration (2016) S/P knee surgery Status post ORIF of fracture of ankle Family History Grandfather Cancer Social History Smoking Status: Never smoker Age Quit Using Tobacco: 32; Second Hand Exposure: No; Hx Alcohol Use: No Hx Substance Use: No Preferred Language: [place] Verdean Communication Ability: Impaired Marbleizing Machine Tender Required: No Beliefs That Will Affect Care: None marital status: Current Living Situation: Spouse Current Living Situation Comment: lives w/ current occupational status: retired Feels Safe at Home: Yes Assistive Devices: Walker Review of Systems See HPI for pertinent positives & negatives. Unobtainable due to cognitive status Physical Exam Vital Signs Vital Signs - 24 hr 11/19/20 11:20 11/19/20 12:08 11/19/20 12:11 Temperature 38 C H Temperature Source Oral Pulse Rate 142 H 105 H Pulse Rate from SpO2 Sensor 106 H Respiratory Rate 20 18 Respiratory Effort / Characteristics Respiratory Depth Normal Blood Pressure 116/87 105/70 Blood Pressure Mean 96 81 Pulse Oximetry 91 95 95 Oxygen Delivery Method Room Air Nasal Cannula Oxygen Flow Rate 3 3 Sepsis Recent Fever Within 48 Hours Yes Sepsis New/Unexplained Change in Mental Status Yes Sepsis Action Taken by Nursing No Action Required 11/19/20 12:30 11/19/20 12:45 11/19/20 13:00 Temperature Temperature Source Pulse Rate 108 H 105 H 133 H Pulse Rate from SpO2 Sensor 108 H 105 H 176 H Respiratory Rate 20 18 18 Respiratory Effort / Characteristics Respiratory Depth Blood Pressure 109/72 111/72 114/72 Blood Pressure Mean 84 85 86 Pulse Oximetry 95 95 90 Oxygen Delivery Method Oxygen Flow Rate 3 3 3 Sepsis Recent Fever Within 48 Hours Sepsis New/Unexplained Change in Mental Status Sepsis Action Taken by Nursing 11/19/20 13:15 11/19/20 13:21 11/19/20 13:24 Temperature Temperature Source Pulse Rate 107 H Pulse Rate from SpO2 Sensor 104 H Respiratory Rate 19 Respiratory Effort / Characteristics Non-Labored Spontaneous Respiratory Depth Blood Pressure 111/68 Blood Pressure Mean 82 Pulse Oximetry 96 95 Oxygen Delivery Method Nasal Cannula Oxygen Flow Rate 3 3 Sepsis Recent Fever Within 48 Hours Sepsis New/Unexplained Change in Mental Status Sepsis Action Taken by Nursing 11/19/20 13:30 11/19/20 13:45 11/19/20 14:00 Temperature Temperature Source Pulse Rate 103 H 104 H 103 H Pulse Rate from SpO2 Sensor 103 H 105 H 104 H Respiratory Rate 18 18 18 Respiratory Effort / Characteristics Respiratory Depth Blood Pressure 100/67 101/67 103/62 Blood Pressure Mean 78 78 75 Pulse Oximetry 95 95 95 Oxygen Delivery Method Oxygen Flow Rate 3 3 3 Sepsis Recent Fever Within 48 Hours Sepsis New/Unexplained Change in Mental Status Sepsis Action Taken by Nursing 11/19/20 14:15 11/19/20 14:36 11/19/20 14:40 Temperature Temperature Source Pulse Rate 103 H 102 H 102 H Pulse Rate from SpO2 Sensor 104 H 102 H 103 H Respiratory Rate 18 18 21 Respiratory Effort / Characteristics Respiratory Depth Blood Pressure 98/62 L Blood Pressure Mean 74 Pulse Oximetry 95 93 96 Oxygen Delivery Method Oxygen Flow Rate 3 3 3 Sepsis Recent Fever Within 48 Hours Sepsis New/Unexplained Change in Mental Status Sepsis Action Taken by Nursing 11/19/20 15:00 11/19/20 15:14 11/19/20 15:15 Temperature 37.3 C Temperature Source Oral Pulse Rate 107 H 101 H Pulse Rate from SpO2 Sensor 106 H 100 H Respiratory Rate 20 21 Respiratory Effort / Characteristics Respiratory Depth Blood Pressure 107/79 110/78 Blood Pressure Mean 88 88 Pulse Oximetry 96 98 Oxygen Delivery Method Oxygen Flow Rate 3 Sepsis Recent Fever Within 48 Hours Sepsis New/Unexplained Change in Mental Status Sepsis Action Taken by Nursing 11/19/20 15:30 11/19/20 15:45 11/19/20 16:00 Temperature Temperature Source Pulse Rate 101 H 104 H 106 H Pulse Rate from SpO2 Sensor 101 H 107 H 107 H Respiratory Rate 18 18 19 Respiratory Effort / Characteristics Respiratory Depth Blood Pressure 113/73 116/81 113/76 Blood Pressure Mean 86 92 88 Pulse Oximetry 93 97 97 Oxygen Delivery Method Oxygen Flow Rate Sepsis Recent Fever Within 48 Hours Sepsis New/Unexplained Change in Mental Status Sepsis Action Taken by Nursing 11/19/20 16:15 11/19/20 16:30 11/19/20 16:45 Temperature Temperature Source Pulse Rate 114 H 120 H 113 H Pulse Rate from SpO2 Sensor 112 H 122 H 109 H Respiratory Rate 25 H 24 20 Respiratory Effort / Characteristics Respiratory Depth Blood Pressure 108/82 118/76 103/76 Blood Pressure Mean 90 90 85 Pulse Oximetry 97 85 L 94 Oxygen Delivery Method Oxygen Flow Rate Sepsis Recent Fever Within 48 Hours Sepsis New/Unexplained Change in Mental Status Sepsis Action Taken by Nursing 11/19/20 17:00 Temperature Temperature Source Pulse Rate 116 H Pulse Rate from SpO2 Sensor 116 H Respiratory Rate 27 H Respiratory Effort / Characteristics Respiratory Depth Blood Pressure 103/75 Blood Pressure Mean 84 Pulse Oximetry 96 Oxygen Delivery Method Oxygen Flow Rate Sepsis Recent Fever Within 48 Hours Sepsis New/Unexplained Change in Mental Status Sepsis Action Taken by Nursing Constitutional: Vital signs reviewed. Eyes: Pupils are equal round reactive to light. Conjunctiva are noninjected. ENT: Pharynx is clear without erythema or exudate. Mucous membranes are dry. Neck supple without meningeal signs. Respiratory: Clear to auscultation bilaterally. Breath sounds are equal bilaterally. Cardiovascular: Irregularly irregular rhythm. Rate 105. GI: Soft, nondistended with mild tenderness in the left lower quadrant. No guarding. Bowel sounds are present. Musculoskeletal: No lower extremity tenderness. Mild edema to the lower extremities. Integumentary: No cyanosis. or jaundice. Neurological: The patient is awake and alert. He moves all extremities. He is very tangential. He moves all extremities. Psychiatric: Difficult to assess. He is cooperative and pleasant. Course Administered Medications Sodium Chloride (Nss) 500 mls @ 80 mls/hr IV .[id number] Stop: 12/19/20 12:29 Last Admin: 11/19/20 12:49 Dose: 80 mls/hr Documented by: [id number] Discontinued Medications Acetaminophen (Acetaminophen 500 Mg Tab) 1,000 mg PO NOW STA Stop: 11/19/20 12:25 Last Admin: 11/19/20 12:49 Dose: 1,000 mg Documented by: [id number] Medical Decision Making Differential Diagnosis Sepsis, pneumonia, UTI, diverticulitis, intracranial hemorrhage, encephalopathy, A. fib with RVR Medical Records Attestation: I reviewed the patient's medical records. I did perform a limited focused review of portions of the patient's old chart on the electronic medical record. The patient was admitted to the hospital October 29 for decompensated diastolic heart failure. Home Medications Current Medication List: was personally reviewed by me Laboratory Data Attestation: I reviewed the patient's lab results. Result diagrams: 11/19/20 11:37 11/19/20 11:37 Lab Results 11/19/20 11/19/20 11/19/20 Range/Units 11:37 11:37 11:37 WBC 10.67 (4.8-10.8) K/uL RBC 3.73 L (4.7-6.1) M/uL Hgb 13.1 L (14.0-18.0) g/dL Hct 40.6 L (42-52) % MCV 108.8 H (80-100) fL MCH 35.1 H (25-34) pg MCHC 32.3 (32-36) g/dL RDW Std Deviation 70.8 H (36.4-46.3) fL RDW Coeff of Osiot 17.8 H (11.5-14.5) % Plt Count 215 (130-400) K/uL MPV 9.8 (7.4-10.4) fL Immature Gran % (Auto) 0.2 % Neut % (Auto) 93.0 % Lymph % (Auto) 4.6 % Caldwell % (Auto) 2.0 % Eos % (Auto) 0.2 % Baso % (Auto) 0.0 % Neut # (Auto) 9.93 H (1.4-6.5) K/uL Lymph # (Auto) 0.49 L (1.2-3.4) K/uL Caldwell # (Auto) 0.21 (0.11-0.59) K/uL Eos # (Auto) 0.02 (0-0.5) K/uL Baso # (Auto) 0.00 (0-0.2) K/uL Immature Gran # (Auto) 0.02 (0.00-0.02) K/uL PT 12.7 H (9.0-12.0) Seconds INR 1.3 H (0.9-1.1) APTT 30.2 (21.0-31.0) Seconds PTT Ratio 1.1 Sodium 141 (136-145) mmol/L Potassium 4.1 (3.5-5.1) mmol/L Chloride 111 H (98-107) mmol/L Carbon Dioxide 25 (21-32) mmol/L Anion Gap 5.0 (3-11) BUN 31 H (7-18) mg/dl Creatinine 1.28 (0.6-1.4) mg/dl Est Cr Clr Drug Dosing 41.2 ml/min Est GFR ( Amer) 57.5 ml/min Est GFR (Non-Af Amer) 49.6 ml/min BUN/Creatinine Ratio 24.2 H (10-20) Glucose 140 H (70-99) mg/dl Lactate (0.4-2.0) mmol/L Calcium 8.7 (8.5-10.1) mg/dl Magnesium (1.8-2.4) mg/dl Total Bilirubin 1.5 H (0.2-1) mg/dl AST 36 (15-37) U/L ALT 34 (12-78) U/L Alkaline Phosphatase 167 H (45-117) U/L Troponin I 0.128 H* (0-0.045) ng/ml Total Protein 6.7 (6.4-8.2) gm/dl Albumin 3.0 L (3.4-5.0) gm/dl Globulin 3.7 (2.5-4.0) gm/dl Albumin/Globulin Ratio 0.8 L (0.9-2) COVID-19 Eval Order SARS-CoV-2 (PCR) (Negative) 11/19/20 11/19/20 11/19/20 Range/Units 11:37 11:37 11:37 WBC (4.8-10.8) K/uL RBC (4.7-6.1) M/uL Hgb (14.0-18.0) g/dL Hct (42-52) % MCV (80-100) fL MCH (25-34) pg MCHC (32-36) g/dL RDW Std Deviation (36.4-46.3) fL RDW Coeff of Osito (11.5-14.5) % Plt Count (130-400) K/uL MPV (7.4-10.4) fL Immature Gran % (Auto) % Neut % (Auto) % Lymph % (Auto) % Caldwell % (Auto) % Eos % (Auto) % Baso % (Auto) % Neut # (Auto) (1.4-6.5) K/uL Lymph # (Auto) (1.2-3.4) K/uL Caldwell # (Auto) (0.11-0.59) K/uL Eos # (Auto) (0-0.5) K/uL Baso # (Auto) (0-0.2) K/uL Immature Gran # (Auto) (0.00-0.02) K/uL PT (9.0-12.0) Seconds INR (0.9-1.1) APTT (21.0-31.0) Seconds PTT Ratio Sodium (136-145) mmol/L Potassium (3.5-5.1) mmol/L Chloride (98-107) mmol/L Carbon Dioxide (21-32) mmol/L Anion Gap (3-11) BUN (7-18) mg/dl Creatinine (0.6-1.4) mg/dl Est Cr Clr Drug Dosing ml/min Est GFR ( Amer) ml/min Est GFR (Non-Af Amer) ml/min BUN/Creatinine Ratio (10-20) Glucose (70-99) mg/dl Lactate (0.4-2.0) mmol/L Calcium (8.5-10.1) mg/dl Magnesium 1.9 (1.8-2.4) mg/dl Total Bilirubin (0.2-1) mg/dl AST (15-37) U/L ALT (12-78) U/L Alkaline Phosphatase (45-117) U/L Troponin I (0-0.045) ng/ml Total Protein (6.4-8.2) gm/dl Albumin (3.4-5.0) gm/dl Globulin (2.5-4.0) gm/dl Albumin/Globulin Ratio (0.9-2) COVID-19 Eval Order Covid19 at [facility] SARS-CoV-2 (PCR) NEGATIVE (Negative) 11/19/20 Range/Units 13:20 WBC (4.8-10.8) K/uL RBC (4.7-6.1) M/uL Hgb (14.0-18.0) g/dL Hct (42-52) % MCV (80-100) fL MCH (25-34) pg MCHC (32-36) g/dL RDW Std Deviation (36.4-46.3) fL RDW Coeff of Osito (11.5-14.5) % Plt Count (130-400) K/uL MPV (7.4-10.4) fL Immature Gran % (Auto) % Neut % (Auto) % Lymph % (Auto) % Caldwell % (Auto) % Eos % (Auto) % Baso % (Auto) % Neut # (Auto) (1.4-6.5) K/uL Lymph # (Auto) (1.2-3.4) K/uL Caldwell # (Auto) (0.11-0.59) K/uL Eos # (Auto) (0-0.5) K/uL Baso # (Auto) (0-0.2) K/uL Immature Gran # (Auto) (0.00-0.02) K/uL PT (9.0-12.0) Seconds INR (0.9-1.1) APTT (21.0-31.0) Seconds PTT Ratio Sodium (136-145) mmol/L Potassium (3.5-5.1) mmol/L Chloride (98-107) mmol/L Carbon Dioxide (21-32) mmol/L Anion Gap (3-11) BUN (7-18) mg/dl Creatinine (0.6-1.4) mg/dl Est Cr Clr Drug Dosing ml/min Est GFR ( Amer) ml/min Est GFR (Non-Af Amer) ml/min BUN/Creatinine Ratio (10-20) Glucose (70-99) mg/dl Lactate 2.0 (0.4-2.0) mmol/L Calcium (8.5-10.1) mg/dl Magnesium (1.8-2.4) mg/dl Total Bilirubin (0.2-1) mg/dl AST (15-37) U/L ALT (12-78) U/L Alkaline Phosphatase (45-117) U/L Troponin I (0-0.045) ng/ml Total Protein (6.4-8.2) gm/dl Albumin (3.4-5.0) gm/dl Globulin (2.5-4.0) gm/dl Albumin/Globulin Ratio (0.9-2) COVID-19 Eval Order SARS-CoV-2 (PCR) (Negative) Imaging Data Radiologist's Impression: Chest X-Ray 11/19/20 12:07 XR chest 1V portable CLINICAL HISTORY: Chest Pain COMPARISON STUDY: Chest radiograph October 29, 2020. FINDINGS: There is no pneumothorax. Patient is rotated. There are small bilateral pleural effusions. Bibasilar opacities have slightly increased. There is pulmonary vascular congestion with suspected mild pulmonary edema. Degenerative changes of both glenohumeral joints are incidentally noted. IMPRESSION: 1. Mild interstitial pulmonary edema. 2. Increase in small bilateral pleural effusions and bibasilar opacities which may reflect atelectasis or consolidation. Radiographic follow-up is recommended. ACT 112: Negative or not required by law. Electronically signed by: Cruz Sanchez M.D. 11/19/2020 1:05 PM Abdomen/Pelvis CT 11/19/20 12:22 CT OF THE ABDOMEN AND PELVIS WITHOUT CONTRAST CLINICAL HISTORY: Left lower quadrant pain. Evaluate for acute diverticulitis. COMPARISON STUDY: CT of the abdomen and pelvis October 20, 2020. TECHNIQUE: Axial images of the abdomen and pelvis were obtained without IV contrast. Images were reviewed in the axial, sagittal, and coronal planes. Automated exposure control was utilized for the study. A dose lowering technique was utilized adhering to the principles of ALARA. FINDINGS: Imaged portions of the lower chest partially visualize moderate right and small left pleural effusions which have increased in size since CT of October 20, 2020. Cardiomegaly is noted. A 3.9 cm oval-shaped density within the right middle lobe is noted. This is nonspecific but favors atelectasis. This is unchanged. Evaluation of the abdomen and pelvis is suboptimal on this unenhanced examination. No pneumatosis, free air or portal venous gas is present. A 3.8 x 2.8 cm cholecystectomy bed density is noted. This has slightly decreased since CT of October 20, 2020. This remains nonspecific. A small amount of abdominal and pelvic ascites is noted. There is anasarca. There is no evidence for a bowel o bstruction. Unenhanced images of the liver, spleen, adrenal glands and pancreas are unremarkable. There are numerous small bilateral renal calculi. There are no ureteral calculi and there is no hydronephrosis. Left hip arthroplasty is noted. No acute fracture or suspicious lesion is identified within the visualized skeletal structures. Small diverticulum of the right lateral aspect of the bladder is present. There is colonic diverticulosis without evidence for acute diverticulitis. There is a moderate amount of stool within the colon and rectum. IMPRESSION: 1. Colonic diverticulosis without evidence for acute diverticulitis. No evidence for a bowel obstruction. 2. Suboptimal evaluation of the abdomen and pelvis given the lack of IV contrast. 3. Slight decrease in size of a 3.8 x 2.8 cm cholecystectomy bed density since CT of October 20, 2020. This may represent an operative bed fluid collection or residual portion of the gallbladder. 4. Evidence for volume overload. Moderate right and small left pleural effusions with small amount of ascites. Anasarca. 5. Bilateral nephrolithiasis. No ureteral calculi or hydronephrosis. ACT 112: Negative or not required by law. Electronically signed by: Cruz Sanchez M.D. 11/19/2020 2:[address] 11/19/20 12:22 CT head/brain wo con CLINICAL HISTORY: Acute change in mental status. Patient on anticoagulants. COMPARISON STUDY: 11/01/2020 TECHNIQUE: Axial CT of the brain is performed from the vertex to the skull base. IV contrast was not administered for this examination. A dose lowering technique was utilized adhering to the principles of ALARA. CT DOSE: 537.48 mGy.cm FINDINGS: No intra or extra-axial mass lesions are visualized. There is no CT evidence of acute cortical infarction. There is no evidence of midline shift. There is no a cute hemorrhage. No calvarial fractures are visualized. There are patchy white matter hypodensities likely on a small vessel basis. There is no evidence of pathologic ventricular dilatation. There is no evidence of acute sinusitis IMPRESSION: No acute intracranial findings ACT 112: Negative or not required by law. Electronically signed by: Jean Lopes M.D. 11/19/2020 2:35 PM ECG Data Attestation: I personally reviewed and interpreted this ECG as follows: Indication: + tachycardia Rate (beats per minute): 130 Rhythm: + atrial fibrillation ECG Intervals/blocks: + Left anterior fascicular block ECG ST segments: + Nonspecific ST abnormalities ECG Findings: no PVCs MDM Narrative I did evaluate the patient as noted above. The patient was brought here for tachycardia. He is rather confused on arrival but has a temperature. IV access was established. I did place an order for continuous cardiac monitoring. The m onitor showed atrial fibrillation with RVR at a rate of 105. I did order and personally review the patient's 12-lead EKG as described above. He has no acute ischemia. He does have A. fib with RVR. I did order and personally reviewed the images of the patient's chest x-ray as described above. Bilateral effusions are noted with questionable bibasilar infiltrates. I did order a urine analysis. I did order and review the patient's blood work as noted in the electronic medical record. His white count is 10.7. Hemoglobin is 13.1. Platelet count is 215. Electrolytes are unremarkable other than a chloride of 111. His troponin is elevated at 0.1. I did order a CT of the head, abdomen and pelvis. I did review the images myself as well as the radiology report as described above. There is no evidence of acute intracranial process. The abdomen demonstrates bilateral pleural effusions without infiltrate. There is some ascites as well. I did reassess the patient. His is in the room right now. She states that he is back to his baseline mental status. He is alert and oriented x2. He does not know where he is right now. His states that he gets confused when he is in an unfamiliar place. He has no complaints at this time. He denies any chest pain or shortness of breath or headache. He will be hospitalized for further care and evaluation. Urine is currently still pending. COVID-19 testing is negative. His heart rate is 102. I did initially order normal saline at 80 mL an hour but after having seen that he has a history of heart failure I did try to cancel this. It apparently did not go through but I did stop the IV fluids. He received approximately 300 cc of normal saline over the 5 hours that he has been here. Urine is currently pending.I did dis cuss the test results with the patient and his .I did discuss the case with the hospitalist and geriatric case manager. Impression & Plan Atrial fibrillation with rapid ventricular response, Acute febrile illness, Bilateral pleural effusion, Abdominal ascites, Elevated troponin I level Discharge Plan Visit Data Chief Complaint: Cardiac Assessment ED Provider: Deo Osman Discharge Problem: Atrial fibrillation with rapid ventricular response, Acute febrile illness, Bilateral pleural effusion, Abdominal ascites, Elevated troponin I level Patient Disposition: Being Evaluated by Hospitalist Forms Stand Alone Forms: [facility] Prescriptions Prescriptions: No Action allopurinol 300 mg tablet 300 mg PO QAM RF: 0 esomeprazole magnesium 40 mg capsule,delayed release(DR/EC) 40 mg PO QAM RF: 0 Eliquis 5 mg tablet 5 mg PO BID Qty: 60 RF: 3 mirtazapine [Remeron] 15 mg tablet 15 mg PO DAILY RF: 0 docusate sodium [Colace] 100 mg capsule 100 mg PO BID RF: 0 metoprolol succinate 25 mg tablet extended release 24 hr 12.5 mg PO BID RF: 0 fluoxetine 10 mg capsule 10 mg PO DAILY RF: 0 ferrous sulfate 325 mg (65 mg iron) tablet 325 mg PO BID Qty: 60 RF: 0 furosemide 40 mg tablet 40 mg PO DAILY RF: 0 potassium chloride [Klor-Con M20] 20 mEq Tablet,Er Particles/Crystals 20 meq PO QAM Qty: 0 RF: 0 Referrals Referrals: Moustapha Joshi MD [Primary Care Provider] - Discharge Problem: Abdominal ascites Qualifiers: Ascites type: other type Qualified Code(s): R18.8 - Other ascites
[2020-11-19 12:41] LABS: BUN Creatinine Ratio 24.2 (10-20); Calcium 8.7 mg/dl (8.5-10.1); Creatinine Clr Calc Pharmacy 41.2 ml/min; Est GFR (African American) 57.5 ml/min; Est GFR (Non-African American) 49.6 ml/min; Potassium 4.1 mmol/L (3.5-5.1)
[2020-11-19 12:49] LABS: Albumin Globulin Ratio 0.8 (0.9-2); Bilirubin,Total 1.5 mg/dl (0.2-1); Globulin 3.7 gm/dl (2.5-4.0); Total Protein 6.7 gm/dl (6.4-8.2); Troponin I 0.128 ng/ml (0-0.045)
[2020-11-19] MEDS: SODIUM CHLORIDE 0.9% 500 ML IV SCH (12:49)
--- NOTE | 2020-11-19 13:07 | XRay Report ---
XR chest 1V portable CLINICAL HISTORY: Chest Pain COMPARISON STUDY: Chest radiograph October 29, 2020. FINDINGS: There is no pneumothorax. Patient is rotated. There are small bilateral pleural effusions. Bibasilar opacities have slightly increased. There is pulmonary vascular congestion with suspected mi ld pulmonary edema. Degenerative changes of both glenohumeral joints are incidentally noted. IMPRESSION: 1. Mild interstitial pulmonary edema. 2. Increase in small bilateral pleural effusions and bibasilar opacities which may reflect atelectasi s or consolidation. Radiographic follow-up is recommended. ACT 112: Negative or not required by law. Electronically signed by: Cruz Sanchez M.D. 11/19/2020 1:05 PM
--- NOTE | 2020-11-19 14:36 | CT Scan Report ---
CT head/brain wo con CLINICAL HISTORY: Acute change in mental status. Patient on anticoagulants. COMPARISON STUDY: 11/01/2020 TECHNIQUE: Axial CT of the brain is performed from the vertex to the skull base. IV contrast was not administered for this examination. A dose lowering technique was utilized adhering to the principles of ALARA. CT DOSE: 537.48 mGy.cm FINDINGS: No intra or extra-axial mass lesions are visualized. There is no CT evidence of acute cortical infarc tion. There is no evidence of midline shift. There is no acute hemorrhage. No calvarial fractures ar e visualized. There are patchy white matter hypodensities likely on a small vessel basis. There is no evidence of pathologic ventricular dilatation. There is no evidence of acute sinusitis IMPRESSION: No acute intracranial findings ACT 112: Negative or not required by law. Electronically signed by: Jean Lopes M.D. 11/19/2020 2:35 PM
--- NOTE | 2020-11-19 14:52 | CT Scan Report ---
CT OF THE ABDOMEN AND PELVIS WITHOUT CONTRAST CLINICAL HISTORY: Left lower quadrant pain. Evaluate for acute diverticulitis. COMPARISON STUDY: CT of the abdomen and pelvis October 20, 2020. TECHNIQUE: Axial images of the abdomen and pelvis were obtained without IV contrast. Images were revi ewed in the axial, sagittal, and coronal planes. Automated exposure control was utilized for the dolores dy. A dose lowering technique was utilized adhering to the principles of ALARA. FINDINGS: Imaged portions of the lower chest partially visualize moderate right and small left pleura l effusions which have increased in size since CT of October 20, 2020. Cardiomegaly is noted. A 3.9 cm o joce-shaped density within the right middle lobe is noted. This is nonspecific but favors atelectasis. This is unchanged. Evaluation of the abdomen and pelvis is suboptimal on this unenhanced examination . No pneumatosis, free air or portal venous gas is present. A 3.8 x 2.8 cm cholecystectomy bed densit y is noted. This has slightly decreased since CT of October 20, 2020. This remains nonspecific. A small amount of abdominal and pelvic ascites is noted. There is anasarca. There is no evidence for a bowel obstruction. Unenhanced images of the liver, spleen, adrenal glands and pancreas are unremarkable. Th ere are numerous small bilateral renal calculi. There are no ureteral calculi and there is no hydrone phrosis. Left hip arthroplasty is noted. No acute fracture or suspicious lesion is identified within the visualized skeletal structures. Small diverticulum of the right lateral aspect of the bladder is present. There is colonic diverticulosis without evidence for acute diverticulitis. There is a modera te amount of stool within the colon and rectum. IMPRESSION: 1. Colonic diverticulosis without evidence for acute diverticulitis. No evidence for a bowel obstruct ion. 2. Suboptimal evaluation of the abdomen and pelvis given the lack of IV contrast. 3. Slight decrease in size of a 3.8 x 2.8 cm cholecystectomy bed density since CT of October 20, 2020. T his may represent an operative bed fluid collection or residual portion of the gallbladder. 4. Evidence for volume overload. Moderate right and small left pleural effusions with small amount of ascites. Anasarca. 5. Bilateral nephrolithiasis. No ureteral calculi or hydronephrosis. ACT 112: Negative or not required by law. Electronically signed by: Cruz Sanchez M.D. 11/19/2020 2:51 PM
--- NOTE | 2020-11-19 17:48 | Electrocardiogram Report ---
Test Reason : Blood Pressure : / mmHG Vent. Rate : 130 BPM Atrial Rate : 156 BPM P-R Int : 000 ms QRS Dur : 102 ms QT Int : 346 ms P-R-T Axes : 000 -58 041 degrees QTc Int : 509 ms Atrial fibrillation with rapid ventricular response Left anterior fascicular block Abnormal ECG When compared with ECG of 29-OCT-2020 14:53, Atrial fibrillation has replaced Sinus rhythm Vent. rate has increased BY 48 BPM Nonspecific T wave abnormality no longer evident in Inferior leads Confirmed by Jordan Licona ([id number]) on 11/19/2020 5:48:09 PM Referred By: Confirmed By:Ramone Licona
[2020-11-19 17:50] LABS: Bacteria Urine Automated Negative (Negative); Bilirubin Urine Negative (Negative); Blood Urine Negative (Negative); Cast Urine Automated 0 /lpf (0-5); Color Urine Dark Yellow; Glucose Urine UA Negative (Negative); Ketones Urine Negative (Negative); Leukocyte Esterase Urine Negative (Negative); Nitrite Urine Negative (Negative); Protein Urine 1+ (Negative); RBC Urine Automated 0-4 /hpf (0-4); Specific Gravity Urine 1.022 (1.000-1.030); Urobilinogen Urine Positive (Negative)
--- NOTE | 2020-11-19 17:50 | History & Physical Report ---
Date of Service November 19, 2020 Assessment & Plan (1) Atrial fibrillation with rapid ventricular response: Patient is an 89-year-old males with a complex past medical history including A. fib on Eliquis, CHF, BPH with urinary obstruction, CKD 3, hypertension who was recently discharged from the hospital for acute on chronic diastolic CHF and lower extremity cellulitis presents from [facility] now presenting for evaluation of atrial fibrillation with rapid ventricular response. #Atrial fibrillation with associated hemodynamic instability complicated by history of CHF Patient with a history of A. fib with RVR on chronic Eliquis previously rate controlled. Was in his usual state of health when he was noted to have a [facility], his vitals were assessed and he was noted to be in atrial fibrillation with RVR and he was referred to the hospital. 25 metoprolol this e vening Patient presented to the ER with a BP of 103/75, pulse of 116, and elevated respiratory rate of 27. Recent history of fever, subjective fever on physical exam, patient endorsing left lower quadrant pain. EKG demonstrating A. fib with RVR, on exam patient appears hypovolemic. -Curbside cardiology who recommended -gentle fluid bolus with careful monitoring for fluid overload -25 mg metoprolol this evening with IV 5 of metoprolol as needed for heart rates greater than 120 hold for systolic pressure less than 110 -Resume home metoprolol in the a.m. -500 mL bolus, monitoring for development of pulmonary edema -Continue apixaban #Fever of unknown origin Patient presenting with documented fever, 38 C in the ED. Subjective fever on physical examination, endorsing left lower quadrant pain, negative UA, negative imaging of the lungs and negative lactate coupled with his history of diverticulitis and imaging evidence of diverticulosis is suspicious for diverticulitis versus bacteremia. -Blood cultures obtained and pending -We will provide broad-spectrum coverage with Vanco and Zosyn and narrow pending cultures and sensitivity #CHF Patient recently discharged from the hospital for acute on chronic CHF exacerbation complicated by cellulitis. Patient has been doing well as an outpatient, on exam today 1+ pitting edema bilaterally, no crackles on respiratory exam. Clinically appeared dry, patient endorsing thirst, mucous membranes were dry also with a history of poor p.o. intake. -Status post 500 cc bolus -Gentle fluid hydration with LR x1 at 80 -If respiratory status declines chest x-ray and diuretics #Elevated troponin level On admission troponin minimally elevated to 0.128 suspect demand ischemia secondary to the above. -Trending troponins x3 #Hypertension History of, holding home antihypertensive given hemodynamic instability. #Chronic kidney disease stage III Baseline creatinine 1.2, on presentation 1.28 -Trend daily BMP -Avoid nephrotoxins -Continue Klor-Con #Anxiety and depression -Continue fluoxetine 10 mg daily #Poor p.o. intake -Continue mirtazapine 15 mg #GERD Continue as esomeprazole FENa: Heart healthy diet Code Status: Full code DVT PPX: On Eliquis PT/OT: Ordered Case Management: Consulted Dispo: Telemetry Jas Toussaint MD PGY 3, FCM This chart was completed utilizing [employer] voice recognition software. Grammatical errors, random word insertions, pronoun errors, and in complete sentences are an occasional consequence of the system. Any questions or concerns about the content, text, or information contained within the body of this dictation should be addressed directly to the physician for clarification. (2) Elevated troponin I level: (3) Bilateral edema of lower extremity: (4) CHF (congestive heart failure): (5) Hypertension: (6) Chronic kidney disease, stage 3: (7) GERD (gastroesophageal reflux disease): (8) Fever: History of Present Illness *Patient is a poor historian and limited documentation from [facility] is available* Patient is an 89-year-old males with a complex past medical history including A. fib on Eliquis, CHF, BPH with urinary obstruction, CKD 3, hypertension who was recently discharged from the hospital for acute on chronic diastolic CHF and lower extremity cellulitis presents from [facility] now presenting for evaluation of atrial fibrillation with rapid ventricular response. Per patient's the patient was in his normal state of health yesterday. She was alerted by [facility] that her had a fever earlier today and that while checking his vitals they noticed him to be in A. fib with rapid ventricular response. Based on these findings they referred him to the emergency department for further evaluation and management In the emergency department routine labs were obtained CBC was unremarkable, borderline elevated white count there is a neutrophil predominance. Coagulation studies within normal limits, Chem-7 demonstrating a glucose of 140, lactate borderline at 2.0, T bili 1.5, AP 167, troponin minimally elevated to 0.128. EKG demonstrating atrial fibrillation with rapid ventricular response nonspecific ST abnormalities. Chest x-ray was obtained demonstrating mild interstitial pulmonary edema, increase in small bilateral pleural effusions which may reflect atelectasis versus consolidation. CT abdomen pelvis demonstrated colonic diverticulosis without evidence of diverticulitis evidence of volume overload, anasarca, bilateral nephrolith without calculi or hydronephrosis. Head CT was negative for acute pathology. Covid negative. He received 500 mL at 80 mils an hour in the ED and a gram of Tylenol. Hospital service was consulted for admission. Upon arrival to the patient's room he was clutching his abdomen and crying out in pain, straining as if he were to have a bowel movement. Saying I cannot get it out. History as describe d above was obtained from his . She also noted the presence of a sacral ulcer. She is unclear how his p.o. intake is been over the past few days, the patient reports he has not been eating. She is unclear on when his last bowel movement once, the patient reports been greater than a week. In the room the patient is denying chest pressure, chest pain, shortness of breath, vomiting, diarrhea, focal neurological symptoms. Patient is endorsing constipation, left lower quadrant pain and generalized malaise. Primary Care Provider: Moustapha Joshi MD Allergies Allergy/AdvReac Type Severity Reaction Status Date / Time No Known Allergies Allergy Unknown Verified 11/19/20 12:21 Home Medications Medication Instructions Recorded Confirmed Type allopurinol 300 mg tablet 300 mg PO QAM tab 01/21/19 11/19/20 History esomeprazole magnesium 40 mg 40 mg PO QAM cap 01/21/19 11/19/20 History capsule,delayed release apixaban 5 mg tablet 5 mg PO BID #60 tab 07/26/20 11/19/20 Rx ferrous sulfate 325 mg (65 mg 325 mg PO BID #60 tab 10/15/20 11/19/20 Rx iron) tablet fluoxetine 10 mg capsule 10 mg PO DAILY 10/15/20 11/19/20 History metoprolol succinate 25 mg 12.5 mg PO BID tab 10/15/20 11/19/20 History tablet,extended release 24 hr potassium chloride [Klor-Con M20] 20 meq PO QAM #0 tab 11/03/20 11/19/20 Rx docusate sodium 100 mg capsule 100 mg PO BID 11/15/20 11/19/20 History mirtazapine 15 mg tablet 15 mg PO DAILY 11/15/20 11/19/20 History furosemide 40 mg PO DAILY 11/19/20 11/19/20 History Past Med/Surg History Medical History Abnormal cystoscopy Actinic keratosis Atrial fibrillation with rapid ventricular response (03/2020) Bilateral nephrolithiasis (2005) Bladder cancer (2016) Chronic kidney disease, stage 3 Elevated troponin Per cardiology note 08/05/20: (2) Elevated troponin: -mild elevation likely a supply demand mismatch and not coronary ischemia. 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 -did have elevated heart rate and low blood pressure while in the emergency room. GI bleed Gout Hearing loss Hematuria (2018) History of basal cell carcinoma (2016) Hypercholesteremia Male erectile disorder of organic origin Vitamin D deficiency Surgical History H/O pyloroplasty H/O shoulder surgery Hx laparoscopic cholecystectomy (08/06/20) Laparoscopic Cholecystectomy with Cholangiogram, Lysis of Adhesions Dr. Givens 08/06/2020 S/P bladder tumor excision with fulguration (2016) S/P knee surgery Status post ORIF of fracture of ankle Family History Grandfather Cancer Social History Smoking Status: Never smoker Age Quit Using Tobacco: 32; Second Hand Exposure: No; Hx Alcohol Use: No Hx Substance Use: No Preferred Language: Mohawk Communication Ability: Effective Measuring Machine Tender Required: No Beliefs That Will Affect Care: None marital status: Current Living Situation: Spouse Current Living Situation Comment: lives w/ current occupational status: retired Other Information That Helps Us Care for You: No Feels Safe at Home: Yes Safety Concerns: Feels Safe At This Time Assistive Devices: Glasses, Hearing Aid - Bilateral and Walker Physical Exam Physical Exam: General: Lying in bed clutching his abdomen HEENT: Normocephalic atraumatic Neck: Normal to visual inspection Cardiac: Irregularly irregular rhythm, tachycardic, I did not appreciate any significant murmurs rubs or gallops, 1+ pedal edema bilaterally, negative calf tenderness Respiratory: Clear to auscultation bilaterally with symmetrical chest expansion I did not appreciate significant wheezes, rales, rhonchi GI: Tender to palpation left lower quadrant otherwise soft and nondistended, no rebound, no guarding Neuro: Alert and oriented x2 Psych: Cooperative with the interview Results & Data Results & Data ([facility]) Vital Signs (Past 12 Hours) Vital Signs Temp Pulse Resp BP Pulse Ox 11/19/20 15:14 37.3 C 11/19/20 15:00 107 H 20 107/79 96 11/19/20 14:40 102 H 21 96 11/19/20 14:36 102 H 18 93 11/19/20 14:15 103 H 18 98/62 L 95 11/19/20 14:00 103 H 18 103/62 95 11/19/20 13:45 104 H 18 101/67 95 11/19/20 13:30 103 H 18 100/67 95 11/19/20 13:24 95 11/19/20 13:15 107 H 19 111/68 96 11/19/20 13:00 133 H 18 114/72 90 11/19/20 12:45 105 H 18 111/72 95 11/19/20 12:30 108 H 20 109/72 95 11/19/20 12:11 105 H 18 105/70 95 11/19/20 12:08 95 11/19/20 11:20 38 C H 142 H 20 116/87 91 Laboratory Results 11/19/20 11/19/20 11/19/20 Range/Units 17:10 13:20 11:37 WBC (4.8-10.8) K/uL RBC (4.7-6.1) M/uL Hgb (14.0-18.0) g/dL Hct (42-52) % MCV (80-100) fL MCH (25-34) pg MCHC (32-36) g/dL RDW Std Deviation (36.4-46.3) fL RDW Coeff of [place] (11.5-14.5) % Plt Count (130-400) K/uL MPV (7.4-10.4) fL Immature Gran % (Auto) % Neut % (Auto) % Lymph % (Auto) % [place] % (Auto) % Eos % (Auto) % Baso % (Auto) % Neut # (Auto) (1.4-6.5) K/uL Lymph # (Auto) (1.2-3.4) K/uL [place] # (Auto) (0.11-0.59) K/uL Eos # (Auto) (0-0.5) K/uL Baso # (Auto) (0-0.2) K/uL Immature Gran # (Auto) (0.00-0.02) K/uL PT (9.0-12.0) Seconds INR (0.9-1.1) APTT (21.0-31.0) Seconds PTT Ratio Sodium (136-145) mmol/L Potassium (3.5-5.1) mmol/L Chloride (98-107) mmol/L Carbon Dioxide (21-32) mmol/L Anion Gap (3-11) BUN (7-18) mg/dl Creatinine (0.6-1.4) mg/dl Est Cr Clr Drug Dosing ml/min Est GFR ( Amer) ml/min Est GFR (Non-Af Amer) ml/min BUN/Creatinine Ratio (10-20) Glucose (70-99) mg/dl Lactate 2.0 (0.4-2.0) mmol/L Calcium (8.5-10.1) mg/dl Magnesium (1.8-2.4) mg/dl Total Bilirubin (0.2-1) mg/dl AST (15-37) U/L ALT (12-78) U/L Alkaline Phosphatase (45-117) U/L Troponin I (0-0.045) ng/ml Total Protein (6.4-8.2) gm/dl Albumin (3.4-5.0) gm/dl Globulin (2.5-4.0) gm/dl Albumin/Globulin Ratio (0.9-2) Urine Color Dark Yellow Urine Appearance Clear (Clear) Urine pH 7.0 (4.5-7.5) Ur Specific [place] 1.022 (1.000-1.030) Urine Protein 1+ H (Negative) Urine Glucose (UA) Negative (Negative) Urine Ketones Negative (Negative) Urine Blood Negative (Negative) Urine Nitrite Negative (Negative) Urine Bilirubin Negative (Negative) Urine Urobilinogen Positive H (Negative) Ur Leukocyte Esterase Negative (Negative) Urine WBC (Auto) 1-5 (0-5) /hpf Urine RBC (Auto) 0-4 (0-4) /hpf U Hyaline Cast (Auto) 0 (0-5) /lpf U Epithel Cells (Auto) 5-10 H (0-5) /lpf Urine Bacteria (Auto) Negative (Negative) COVID-19 Eval Order SARS-CoV-2 (PCR) NEGATIVE (Negative) 11/19/20 11/19/20 11/19/20 Range/Units 11:37 11:37 11:37 WBC (4.8-10.8) K/uL RBC (4.7-6.1) M/uL Hgb (14.0-18.0) g/dL Hct (42-52) % MCV (80-100) fL MCH (25-34) pg MCHC (32-36) g/dL RDW Std Deviation (36.4-46.3) fL RDW Coeff of [place] (11.5-14.5) % Plt Count (130-400) K/uL MPV (7.4-10.4) fL Immature Gran % (Auto) % Neut % (Auto) % Lymph % (Auto) % [place] % (Auto) % Eos % (Auto) % Baso % (Auto) % Neut # (Auto) (1.4-6.5) K/uL Lymph # (Auto) (1.2-3.4) K/uL [place] # (Auto) (0.11-0.59) K/uL Eos # (Auto) (0-0.5) K/uL Baso # (Auto) (0-0.2) K/uL Immature Gran # (Auto) (0.00-0.02) K/uL PT (9.0-12.0) Seconds INR (0.9-1.1) APTT (21.0-31.0) Seconds PTT Ratio Sodium 141 (136-145) mmol/L Potassium 4.1 (3.5-5.1) mmol/L Chloride 111 H (98-107) mmol/L Carbon Dioxide 25 (21-32) mmol/L Anion Gap 5.0 (3-11) BUN 31 H (7-18) mg/dl Creatinine 1.28 (0.6-1.4) mg/dl Est Cr Clr Drug Dosing 41.2 ml/min Est GFR ( Amer) 57.5 ml/min Est GFR (Non-Af Amer) 49.6 ml/min BUN/Creatinine Ratio 24.2 H (10-20) Glucose 140 H (70-99) mg/dl Lactate (0.4-2.0) mmol/L Calcium 8.7 (8.5-10.1) mg/dl Magnesium 1.9 (1.8-2.4) mg/dl Total Bilirubin 1.5 H (0.2-1) mg/dl AST 36 (15-37) U/L ALT 34 (12-78) U/L Alkaline Phosphatase 167 H (45-117) U/L Troponin I 0.128 H* (0-0.045) ng/ml Total Protein 6.7 (6.4-8.2) gm/dl Albumin 3.0 L (3.4-5.0) gm/dl Globulin 3.7 (2.5-4.0) gm/dl Albumin/Globulin Ratio 0.8 L (0.9-2) Urine Color Urine Appearance (Clear) Urine pH (4.5-7.5) Ur Specific [place] (1.000-1.030) Urine Protein (Negative) Urine Glucose (UA) (Negative) Urine Ketones (Negative) Urine Blood (Negative) Urine Nitrite (Negative) Urine Bilirubin (Negative) Urine Urobilinogen (Negative) Ur Leukocyte Esterase (Negative) Urine WBC (Auto) (0-5) /hpf Urine RBC (Auto) (0-4) /hpf U Hyaline Cast (Auto) (0-5) /lpf U Epithel Cells (Auto) (0-5) /lpf Urine Bacteria (Auto) (Negative) COVID-19 Eval Order Covid19 at [facility] SARS-CoV-2 (PCR) (Negative) 11/19/20 11/19/20 Range/Units 11:37 11:37 WBC 10.67 (4.8-10.8) K/uL RBC 3.73 L (4.7-6.1) M/uL Hgb 13.1 L (14.0-18.0) g/dL Hct 40.6 L (42-52) % MCV 108.8 H (80-100) fL MCH 35.1 H (25-34) pg MCHC 32.3 (32-36) g/dL RDW Std Deviation 70.8 H (36.4-46.3) fL RDW Coeff of [place] 17.8 H (11.5-14.5) % Plt Count 215 (130-400) K/uL MPV 9.8 (7.4-10.4) fL Immature Gran % (Auto) 0.2 % Neut % (Auto) 93.0 % Lymph % (Auto) 4.6 % [place] % (Auto) 2.0 % Eos % (Auto) 0.2 % Baso % (Auto) 0.0 % Neut # (Auto) 9.93 H (1.4-6.5) K/uL Lymph # (Auto) 0.49 L (1.2-3.4) K/uL [place] # (Auto) 0.21 (0.11-0.59) K/uL Eos # (Auto) 0.02 (0-0.5) K/uL Baso # (Auto) 0.00 (0-0.2) K/uL Immature Gran # (Auto) 0.02 (0.00-0.02) K/uL PT 12.7 H (9.0-12.0) Seconds INR 1.3 H (0.9-1.1) APTT 30.2 (21.0-31.0) Seconds PTT Ratio 1.1 Sodium (136-145) mmol/L Potassium (3.5-5.1) mmol/L Chloride (98-107) mmol/L Carbon Dioxide (21-32) mmol/L Anion Gap (3-11) BUN (7-18) mg/dl Creatinine (0.6-1.4) mg/dl Est Cr Clr Drug Dosing ml/min Est GFR ( Amer) ml/min Est GFR (Non-Af Amer) ml/min BUN/Creatinine Ratio (10-20) Glucose (70-99) mg/dl Lactate (0.4-2.0) mmol/L Calcium (8.5-10.1) mg/dl Magnesium (1.8-2.4) mg/dl Total Bilirubin (0.2-1) mg/dl AST (15-37) U/L ALT (12-78) U/L Alkaline Phosphatase (45-117) U/L Troponin I (0-0.045) ng/ml Total Protein (6.4-8.2) gm/dl Albumin (3.4-5.0) gm/dl Globulin (2.5-4.0) gm/dl Albumin/Globulin Ratio (0.9-2) Urine Color Urine Appearance (Clear) Urine pH (4.5-7.5) Ur Specific [place] (1.000-1.030) Urine Protein (Negative) Urine Glucose (UA) (Negative) Urine Ketones (Negative) Urine Blood (Negative) Urine Nitrite (Negative) Urine Bilirubin (Negative) Urine Urobilinogen (Negative) Ur Leukocyte Esterase (Negative) Urine WBC (Auto) (0-5) /hpf Urine RBC (Auto) (0-4) /hpf U Hyaline Cast (Auto) (0-5) /lpf U Epithel Cells (Auto) (0-5) /lpf Urine Bacteria (Auto) (Negative) COVID-19 Eval Order SARS-CoV-2 (PCR) (Negative) Medications Administered Current Inpatient Medications Sodium Chloride (Nss) 500 mls @ 80 mls/hr IV .[id number] MEJIA Stop: 12/19/20 12:29 Last Admin: 11/19/20 12:49 Dose: 80 mls/hr Documented by: Vancomycin HCl 500 mg/ Sodium (Chloride) 260 mls @ 200 mls/hr IV DAILY MEJIA; Protocol Stop: 11/21/20 18:44 Piperacillin Sod/Tazobactam (Sod 3.375 gm/ Dextrose) 115 mls @ 230 mls/hr IV NOW ONE; Protocol Stop: 11/19/20 19:07 Metoprolol Succinate (Metoprolol Succ 25mg Ext Rel Tab) 12.5 mg PO BID MEJIA Stop: 12/20/20 08:59 Metoprolol Succinate (Metoprolol Succ 25mg Ext Rel Tab) 25 mg PO ONE ONE Stop: 11/19/20 20:01 Miscellaneous Information (Vancomycin Consult Active) 1 ea N/A UD PRN PRN Reason: Consult Stop: 12/19/20 18:37 Miscellaneous Information (Piperacill/Tazobac Consult Active) 1 ea N/A UD PRN PRN Reason: Consult Stop: 12/19/20 18:37 Supervising Physician Co-Signing Physician Notes Attending attestation Pt seen and examined in concert with Dr. Toussaint. In agreement with the documented findings as noted in the resident documentation with any exceptions or additions as noted here. Resting comfortably with well controlled abdominal periumbilical pain on APAP in ED without other complaint at present though feeling somewhat warm (febrile). On examination, S1/S2 nl RRR no MCG. CTAB. Abd nondistended BS+ve mild periumbilical TTP. No LE edema appreciated. No rashes noted. CN II-XII grossly intact. AF with RVR - improvement with fluids and fever control - cardiology consult - increase metoprolol to 25mg for tonight w/ hold parameters. Bolus another 500cc NS. Continue AC. Trend troponins Febrile illness - colitis vs. PNA vs. other occult disease - follow up cultures, consider TTE in AM. Monitor for sx changes. HFrEF - monitor closely for fluid overload HTN - currently hypotensive, holding medications except as noted above. CKD III - monitor BMP Else see resident documentation as noted. Resident Activity Tracking Resident Involvement: Resident Care Provided Care Provided: Adult Hospital Medicine (1) Chronic kidney disease, stage 3 Chronic kidney disease stage 3 subtype: stage 3b (GFR 30-44) Qualified Code(s): N18.32 - Chronic kidney disease, stage 3b (2) CHF (congestive heart failure) Heart failure chronicity: acute on chronic Heart failure type: unspecified Qualified Code(s): I50.9 - Heart failure, unspecified
[2020-11-19 17:54] LABS: Appearance Urine Clear (Clear)
[2020-11-19] MEDS ORDERED: PIPERACILLIN/TAZOBACTAM 3.375 GM in DEXTROSE 5% 100 ML IV ONE (18:38)
[2020-11-19] MEDS ORDERED: VANCOMYCIN CONSULT ACTIVE PRN (18:38)
[2020-11-19] MEDS ORDERED: PIPERACILL/TAZOBAC CONSULT ACTIVE PRN (18:38)
[2020-11-19] MEDS ORDERED: VANCOMYCIN HCL 500 MG in SODIUM CHLORIDE 0.9% 250 ML IV SCH (18:45)
[2020-11-19] MEDS ORDERED: LACTATED RINGER'S 1,000 ML IV SCH (19:00)
[2020-11-19] MEDS ORDERED: METOPROLOL SUCC 25MG EXT REL TAB PO ONE (20:00)
[2020-11-19] MEDS ORDERED: ONDANSETRON INJ 2 MG/ML 2 ML VIAL IV PRN (20:31)
[2020-11-19] MEDS ORDERED: POLYETHYLENE (MIRALAX) 17 GM PACK PO PRN (20:31)
[2020-11-19] MEDS: MIRTAZAPINE TAB 15 MG TAB PO SCH (21:49)
[2020-11-19] MEDS: APIXABAN 5 MG TABLET PO SCH (21:50)
[2020-11-19] MEDS: DOCUSATE SODIUM 100 MG CAP PO SCH (21:50)
[2020-11-19] MEDS: allopurinoL 300 MG TAB PO SCH (21:50)
[2020-11-19] MEDS: POTASSIUM CHLORIDE CRTAB 20 MEQ TABCR PO SCH (21:51)
[2020-11-19] MEDS: POLYETHYLENE (MIRALAX) 17 GM PACK PO SCH (21:52)
[2020-11-19] MEDS: FERROUS SULFATE 325 MG TAB PO SCH (21:52)
[2020-11-19] MEDS: PIPERACILLIN/TAZOBACTAM 3.375 GM in DEXTROSE 5% 100 ML IV ONE ×2 (21:58→22:22)
[2020-11-19] MEDS ORDERED: VANCOMYCIN HCL 1,750 MG in SODIUM CHLORIDE 0.9% 500 ML IV SCH (22:00)
[2020-11-20] MEDS: PIPERACILLIN/TAZOBACTAM 3.375 GM in DEXTROSE 5% 100 ML IV SCH ×3 (03:09→19:33)
[2020-11-20 07:06] LABS: Basophils # (auto) 0.01 K/uL (0-0.2); Basophils % (auto) 0.1 %; Hematocrit (blood only) 35.2 % (42-52); Hemoglobin 11.5 g/dL (14.0-18.0); Immature Granulocytes # (auto) 0.05 K/uL (0.00-0.02); Immature Granulocytes % (auto) 0.4 %; Lymphocytes # (auto) 0.61 K/uL (1.2-3.4); Lymphocytes % (auto) 4.7 %; Mean Corpuscular Hemoglobin 35.3 pg (25-34); Mean Corpuscular Hgb Conc 32.7 g/dL (32-36); Mean Platelet Volume 9.9 fL (7.4-10.4); Monocytes # (auto) 0.62 K/uL (0.11-0.59); Monocytes % (auto) 4.8 %; Neutrophils # (auto) 11.65 K/uL (1.4-6.5); Platelet Count 151 K/uL (130-400); RDW Coefficient of Variation 17.7 % (11.5-14.5); RDW Standard Deviation 69.9 fL (36.4-46.3); Red Blood Count 3.26 M/uL (4.7-6.1); White Blood Count 12.94 K/uL (4.8-10.8)
[2020-11-20 07:42] LABS: Albumin Level 2.3 gm/dl (3.4-5.0); BUN Creatinine Ratio 21.7 (10-20); Calcium 7.7 mg/dl (8.5-10.1); Est GFR (African American) 52.5 ml/min; Est GFR (Non-African American) 45.3 ml/min
[2020-11-20 07:49] LABS: Albumin Globulin Ratio 0.7 (0.9-2); Bilirubin,Total 1.5 mg/dl (0.2-1); Globulin 3.3 gm/dl (2.5-4.0); Total Protein 5.6 gm/dl (6.4-8.2)
[2020-11-20] MEDS ORDERED: LACTATED RINGER'S 250 ML IV ONE (08:34)
[2020-11-20] MEDS: POTASSIUM CHLORIDE CRTAB 20 MEQ TABCR PO SCH (08:39)
[2020-11-20] MEDS: DOCUSATE SODIUM 100 MG CAP PO SCH ×2 (08:40→19:44)
[2020-11-20] MEDS: METOPROLOL SUCC 25MG EXT REL TAB PO SCH ×2 (08:40→21:31)
[2020-11-20] MEDS: APIXABAN 5 MG TABLET PO SCH ×2 (08:40→19:44)
[2020-11-20] MEDS: FERROUS SULFATE 325 MG TAB PO SCH ×2 (08:40→19:44)
[2020-11-20] MEDS: allopurinoL 300 MG TAB PO SCH (08:40)
[2020-11-20] MEDS: PANTOprazole 40 MG TAB PO SCH (08:40)
[2020-11-20] MEDS: MIRTAZAPINE TAB 15 MG TAB PO SCH (08:41)
[2020-11-20] MEDS: POLYETHYLENE (MIRALAX) 17 GM PACK PO SCH ×2 (08:41→19:48)
[2020-11-20] MEDS: FLUoxetine HCL 10 MG CAP PO SCH (08:41)
--- NOTE | 2020-11-20 08:51 | Medical Student Progress Note ---
Date of Service November 20, 2020 Assessment & Plan (1) Atrial fibrillation with rapid ventricular response: Patient is an 89-year-old males with a complex past medical history including A. fib on Eliquis, CHF, BPH with urinary obstruction, CKD 3, hypertension who was recently discharged from the hospital for acute on chronic diastolic CHF and lower extremity cellulitis presents from [facility] now presenting for evaluation of atrial fibrillation with rapid ventricular response. Bacteremia Patient presenting with documented fever, 38 C in the ED. Blood cultures positive for staph aureus. Sensitivities pending. Lactate elevated. - Source unclear but includes sacral ulcer, possible diverticulitis given initial presentation of abdominal pain and evidence of diverticulosis (without signs of diverticulitis) on imaging, as well pneumonia given patient's new O2 requirement without evidence of fluid overload. His chest x-ray in the ED however was not suggestive - KRYSTAL ordered to evaluate for endocarditis given staph aureus bacteremia - Consider repeat chest x-ray in 1-2 days to evaluate for changes suggestive of pneumonia - Continue with Vanco and Zosyn pending sensitivities Hemodynamic instability in the setting of Atrial fibrillation and history of CHF Patient with a history of A. fib with RVR on chronic Eliquis previously rate controlled. Was in his usual state of health when he was noted to have a fever at the group home, his vitals were assessed and he was noted to be in atrial fibrillation with RVR and he was referred to the hospital. Patient presented to the ER with a BP of 103/75, pulse of 116, and elevated respiratory rate of 27. EKG demonstrating A. fib with RVR. Curbsided cardio 11/19 who recommended 25mg metoprolol and gentle fluid bolus with careful monitoring for fluid overload. Patient did well overnight, hemodynamics stabilized. - Converted to normal rhythm - Resumed home metoprolol 11/20 -500 mL bolus 11/19, 250mL 11/20, 1 bag LR- monitoring for development of pulmonary edema -Continue apixaban CHF Patient recently discharged from the hospital for acute on chronic CHF exacerbation complicated by cellulitis. Patient has been doing well as an outpatient. - No evidence of fluid overload on exam - Monitor fluid status with repeat exams - If respiratory status declines chest x-ray and diuretics Elevated troponin level On admission troponin minimally elevated, but patient has evidence of chronically elevated tropinonin. Suspect demand ischemia secondary to the above. -Continue to trending Hypertension History of, holding home antihypertensive given hemodynamic instability. Chronic kidney disease stage III Baseline creatinine 1.2, on presentation 1.28 -Trend daily BMP -Avoid nephrotoxins -Continue Klor-Con Anxiety and depression -Continue fluoxetine 10 mg daily Poor p.o. intake -Continue mirtazapine 15 mg GERD - Continue as esomeprazole FENa: Heart healthy diet Code Status: Full code DVT PPX: On Eliquis PT/OT: Ordered Case Management: Consulted Dispo: Telemetry (2) Elevated troponin I level: (3) Bilateral edema of lower extremity: (4) CHF (congestive heart failure): Heart failure chronicity: acute on chronic Heart failure type: un specified Qualified Code(s): I50.9 - Heart failure, unspecified (5) Hypertension: (6) Chronic kidney disease, stage 3: Chronic kidney disease stage 3 subtype: stage 3b (GFR 30-44) Qualified Code(s): N18.32 - Chronic kidney disease, stage 3b (7) GERD (gastroesophageal reflux disease): (8) Fever: Admission and Anticipated Discharge Date Admission Date: November 19, 2020 Supervising Attestation Attending attestation Pt seen and examined in concert with St. Dr. Aleksey Artis. In agreement with the documented findings as noted in the resident documentation with any exceptions or additions as noted here. Resting comfortably - presently denies and does not recall c/o central abdominal pain. Per spouse, did have BM today. On examination, S1/S2 nl RRR no MCG. CTAB. Abd NT/ND BS+ve. Trace b/l LE edema at the ankle Sepsis with staph aureus bacteremia - no definitive source, query skin v. colon v. lung/cardiac - echocardiogram. Continue IV abx as noted and f/u C/S. Consider reimaging chest and abd tomorrow based on sx, improvement. AF w/ RVR - resolved - resume home metoprolol dosing, encourage hydration, continue management of underlying infection HFrEF - careful hydration with monitoring for fluid overload. Hold furosemide. Else see resident documentation as noted. Subjective Patient seen at bedside and has no acute complaints. He denies any abdominal and does not recall abdominal on admission. Denies chest pain or palpitations. Denies SOB. Denies subjective fever/chills. Review of Systems Review of Systems: All systems reviewed & are unremarkable except as noted in HPI & below Physical Exam Physical Exam: GENERAL: nad HEENT: conjunctiva without injection b/l, oropharynx moist, external nose and pinna are normal CHEST: cta bilaterally with no wheezes, rhonchi or rales, good air normal respiratory effort CARDIOVASCULAR: heart regular rate and rhythm, no murmurs, gallops or rubs, +1 pitting lower extremity edema to mid calf ABD: no hepatosplenomegaly or masses, nontender to palpation, nondistended, normal active bowel sounds NEURO: PERRLA, alert and oriented to place and person only Results & Data ([facility]) Vital Signs (Past 12 Hours) Vital Signs Temp Pulse Pulse Resp BP Pulse Ox 11/20/20 08:19 36.7 C 95 H 20 92/63 L 95 11/20/20 04:45 36.9 C 93 H 20 101/67 92 11/19/20 23:18 36.6 C 103 H 16 99/66 L 94 11/19/20 23:00 91 H
--- NOTE | 2020-11-20 17:09 | XCELERA ---
[id number]
--- NOTE | 2020-11-20 18:13 | Cardiology Consultation ---
Date of Consultation November 20, 2020 Assessment & Plan (1) Atrial fibrillation with rapid ventricular response: He is known to have paroxysmal atrial fibrillation. It is very likely that his elevated ventricular response was related to his fever. Overall his heart rates have been well controlled until immediately before my interview when the seem to be slightly higher. I would agree with intensification of his beta- blockade. We will need to monitor his volume status closely. Overall he appears to be slightly hypervolemic. This could be contributing to some higher ventricular rates as well. He should continue on a systemic anticoagulation. (2) Elevated troponin I level: He seems to have chronically elevated biomarkers. The level obtained this admission is actually lower than the last. There is no evidence that he suffers from an acute coronary syndrome. I do not believe he requires any additional evaluation in this regard. (3) CHF (congestive heart failure): His echocardiogram today looks similar to ones obtained in the past. He did have Od septal motion suggestive of RV volume overload, but there was not much tricuspid regurgitation in the measured pulmonary pressures did not seem elevated. His IVC was dilated. He may simply benefit from some diuresis. He seems much more hemodynamically stable this afternoon and if his blood pressure continues to be normal would reinstitute diuresis tomorrow. (4) Valvular heart disease: History of Present Illness Reason for Consultation: Atrial fibrillation Requesting Physician: Norbert Attending Physician: Gilmar Brandt MD History of Present Illness The patient is an 82-year-old gentleman with a history of diastolic heart failure and atrial fibrillation who is currently a resident at [facility]. It seems that he was complaining of feeling somewhat cold but was discovered to be febrile. He was also noted to have tachycardia and was sent to the emergency room for evaluation. The patient did provide some history but this was supplemented by his who was at the bedside. He did not endorse other symptoms such as abdominal complaints, nausea and vomiting, dizziness, lightheadedness, chest pain or breathing difficulty. According to was he can ambulate with and without a walker. He does not appear to have limiting dyspnea recently. The patient did not report symptoms of orthopnea. In the past he has had significant lower extremity edema but according to his this is much improved recently. While the patient did answer questions, often times he would diagram us and ramble on about other topics of interest to him. Allergies Allergy/AdvReac Type Severity Reaction Status Date / Time No Known Allergies Allergy Unknown Verified 11/19/20 12:21 Home Medications Medication Instructions Recorded Confirmed Type allopurinol 300 mg tablet 300 mg PO QAM tab 01/21/19 11/19/20 History esomeprazole magnesium 40 mg 40 mg PO QAM cap 01/21/19 11/19/20 History capsule,delayed release apixaban 5 mg tablet 5 mg PO BID #60 tab 07/26/20 11/19/20 Rx ferrous sulfate 325 mg (65 mg 325 mg PO BID #60 tab 10/15/20 11/19/20 Rx iron) tablet fluoxetine 10 mg capsule 10 mg PO DAILY 10/15/20 11/19/20 History metoprolol succinate 25 mg 12.5 mg PO BID tab 10/15/20 11/19/20 History tablet,extended release 24 hr potassium chloride [Klor-Con M20] 20 meq PO QAM #0 tab 11/03/20 11/19/20 Rx docusate sodium 100 mg capsule 100 mg PO BID 11/15/20 11/19/20 History mirtazapine 15 mg tablet 15 mg PO DAILY 11/15/20 11/19/20 History furosemide 40 mg PO DAILY 11/19/20 11/19/20 History Patient History Medical History Abnormal cystoscopy Actinic keratosis Atrial fibrillation with rapid ventricular response (03/2020) Bilateral nephrolithiasis (2005) Bladder cancer (2016) Chronic kidney disease, stage 3 Elevated troponin Per cardiology note 08/05/20: (2) Elevated troponin: -mild elevation likely a supply demand mismatch and not coronary ischemia. 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 -did have elevated heart rate and low blood pressure while in the emergency room. GI bleed Gout Hearing loss Hematuria (2018) History of basal cell carcinoma (2016) Hypercholesteremia Male erectile disorder of organic origin Vitamin D deficiency Surgical History H/O pyloroplasty H/O shoulder surgery Hx laparoscopic cholecystectomy (08/06/20) Laparoscopic Cholecystectomy with Cholangiogram, Lysis of Adhesions Dr. Givens 08/06/2020 S/P bladder tumor excision with fulguration (2016) S/P knee surgery Status post ORIF of fracture of ankle Family History Grandfather Cancer Social History Smoking Status: Never smoker Age Quit Using Tobacco: 32; Second Hand Exposure: No; Hx Alcohol Use: No Hx Substance Use: No Preferred Language: Guyanese Communication Ability: Effective Talent Management Specialist Required: No Beliefs That Will Affect Care: None marital status: Current Living Situation: Spouse Current Living Situation Comment: lives w/ current occupational status: retired How many Children do You have: 2 Other Information That Helps Us Care for You: No Feels Safe at Home: Yes Safety Concerns: Feels Safe At This Time Assistive Devices: Oxygen - Continuous Review of Systems Review of Systems: Unobtainable due to cognitive status Physical Exam Physical Exam: The patient is alert and oriented. Mood and affect appeared normal. He answered all questions appropriately but often became tangential. HEENT: Pupils are equal and reactive to light and accommodation. Extraocular movements are intact. The sclerae are anicteric. Neuro: Cranial nerves intact Lungs: Clear in the apices. Some reduced breath sounds in the bases bilaterally. No expiratory wheezing. Normal respiratory effort. Cardiac: Heart demonstrates an irregular rate and rhythm. Normal S1 and S2. Occasional brief high-pitched systolic murmur. Pulses: The patient has palpable radial pulses bilaterally that are equal in intensity Extremities: There was no evidence of hypoperfusion. There is no cyanosis or clubbing. Mild lower extremity edema Skin: I did not appreciate any rashes on examination today. Some excoriations on the lower extremities. Results & Data ([facility]) Vital Signs (Past 12 Hours) Vital Signs Temp Pulse Pulse Resp BP Pulse Ox Pulse Ox 11/20/20 16:01 36.5 C 89 18 100/71 98 11/20/20 12:11 36.7 C 89 18 100/71 100 11/20/20 08:19 36.7 C 95 H 20 92/63 L 95 11/20/20 08:00 58 L 95 Laboratory Results Abnormal Lab Results 11/19/20 11/19/20 11/20/20 11:27 20:32 01:07 WBC RBC Hgb Hct MCV MCH MCHC RDW Std Deviation RDW Coeff of Osito Plt Count MPV Immature Gran % (Auto) Neut % (Auto) Lymph % (Auto) Day % (Auto) Eos % (Auto) Baso % (Auto) Neut # (Auto) Lymph # (Auto) Day # (Auto) Eos # (Auto) Baso # (Auto) Immature Gran # (Auto) Sodium Potassium Chloride Carbon Dioxide Anion Gap BUN Creatinine Est Cr Clr Drug Dosing Est GFR ( Amer) Est GFR (Non-Af Amer) BUN/Creatinine Ratio Glucose Lactate Calcium Total Bilirubin AST ALT Alkaline Phosphatase Troponin I 0.155 H* 0.161 H* Total Protein Albumin Globulin Albumin/Globulin Ratio Bld Cult Staph aureus PCR Positive A Blood Culture MRSA PCR Negative 11/20/20 11/20/20 11/20/20 06:55 06:55 06:56 WBC 12.94 H RBC 3.26 L Hgb 11.5 L Hct 35.2 L MCV 108.0 H MCH 35.3 H MCHC 32.7 RDW Std Deviation 69.9 H RDW Coeff of Osito 17.7 H Plt Count 151 MPV 9.9 Immature Gran % (Auto) 0.4 Neut % (Auto) 90.0 Lymph % (Auto) 4.7 Day % (Auto) 4.8 Eos % (Auto) 0.0 Baso % (Auto) 0.1 Neut # (Auto) 11.65 H Lymph # (Auto) 0.61 L Day # (Auto) 0.62 H Eos # (Auto) 0.00 Baso # (Auto) 0.01 Immature Gran # (Auto) 0.05 H Sodium 141 Potassium 4.0 Chloride 111 H Carbon Dioxide 25 Anion Gap 6.0 BUN 30 H Creatinine 1.38 Est Cr Clr Drug Dosing 37.0 Est GFR ( Amer) 52.5 Est GFR (Non-Af Amer) 45.3 BUN/Creatinine Ratio 21.7 H Glucose 105 H Lactate Calcium 7.7 L Total Bilirubin 1.5 H AST 33 ALT 29 Alkaline Phosphatase 114 Troponin I 0.166 H* Total Protein 5.6 L Albumin 2.3 L Globulin 3.3 Albumin/Globulin Ratio 0.7 L Bld Cult Staph aureus PCR Blood Culture MRSA PCR 11/20/20 11/20/20 11/20/20 07:39 09:35 14:15 WBC RBC Hgb Hct MCV MCH MCHC RDW Std Deviation RDW Coeff of Osito Plt Count MPV Immature Gran % (Auto) Neut % (Auto) Lymph % (Auto) Day % (Auto) Eos % (Auto) Baso % (Auto) Neut # (Auto) Lymph # (Auto) Day # (Auto) Eos # (Auto) Baso # (Auto) Immature Gran # (Auto) Sodium Potassium Chloride Carbon Dioxide Anion Gap BUN Creatinine Est Cr Clr Drug Dosing Est GFR ( Amer) Est GFR (Non-Af Amer) BUN/Creatinine Ratio Glucose Lactate 2.4 H* 3.6 H* Calcium Total Bilirubin AST ALT Alkaline Phosphatase Troponin I 0.153 H* Total Protein Albumin Globulin Albumin/Globulin Ratio Bld Cult Staph aureus PCR Blood Culture MRSA PCR Diagnostic Findings Mildly reduced LV systolic function with an ejection fraction around 45%. Mild left atrial dilation. Mild to moderate mitral regurgitation. Some evidence of right-sided volume overload. Left pleural effusion was noted. Scan of the abdomen suggested mild ascites and bilateral pleural effusions. Chest x-ray obtained at the time admission suggested a mild interstitial prominence. PG Care Time/CCT Total # of Minutes Spent Total Time Spent with Patient: Total time spent is greater than 50% in coordination of care (as documented) at patient's floor/unit and/or counseling patient: Coding Level of Care Code 32896 Initial Inpt Care Lvl 3 Diagnoses Atrial fibrillation with rapid ventricular response I48.91 Elevated troponin I level R77.8 CHF (congestive heart failure) I50.9 Heart failure chronicity: acute on chronic Heart failure type: unspecified Valvular heart disease I38 (1) CHF (congestive heart failure) Heart failure chronicity: acute on chronic Heart failure type: unspecified Qualified Code(s): I50.9 - Heart failure, unspecified
[2020-11-20] MEDS: ACETAMINOPHEN 500 MG TAB PO PRN (19:55)
[2020-11-20] MEDS: METOPROLOL TARTRATE 25 MG TAB PO SCH (21:31)
[2020-11-20] MEDS ORDERED: VANCOMYCIN HCL 1,000 MG in SODIUM CHLORIDE 0.9% 250 ML IV SCH (22:00)
[2020-11-21] MEDS: PIPERACILLIN/TAZOBACTAM 3.375 GM in DEXTROSE 5% 100 ML IV SCH (03:00)
[2020-11-21] MEDS: SODIUM CHLORIDE 0.9% 500 ML IV SCH (07:26)
[2020-11-21 07:40] LABS: Basophils # (auto) 0.01 K/uL (0-0.2); Basophils % (auto) 0.1 %; Eosinophils # (auto) 0.07 K/uL (0-0.5); Eosinophils % (auto) 0.7 %; Hematocrit (blood only) 39.5 % (42-52); Hemoglobin 12.7 g/dL (14.0-18.0); Immature Granulocytes # (auto) 0.04 K/uL (0.00-0.02); Immature Granulocytes % (auto) 0.4 %; Lymphocytes # (auto) 1.31 K/uL (1.2-3.4); Lymphocytes % (auto) 12.9 %; Mean Corpuscular Hgb Conc 32.2 g/dL (32-36); Mean Corpuscular Volume 108.8 fL (80-100); Mean Platelet Volume 9.9 fL (7.4-10.4); Monocytes # (auto) 0.54 K/uL (0.11-0.59); Monocytes % (auto) 5.3 %; Neutrophils # (auto) 8.17 K/uL (1.4-6.5); Neutrophils % (auto) 80.6 %; Platelet Count 143 K/uL (130-400); RDW Coefficient of Variation 17.7 % (11.5-14.5); RDW Standard Deviation 70.8 fL (36.4-46.3); Red Blood Count 3.63 M/uL (4.7-6.1); White Blood Count 10.14 K/uL (4.8-10.8)
[2020-11-21 08:05] LABS: Albumin Level 2.2 gm/dl (3.4-5.0); BUN Creatinine Ratio 20.8 (10-20); Calcium 8.1 mg/dl (8.5-10.1); Creatinine Clr Calc Pharmacy 32.5 ml/min; Est GFR (African American) 44.9 ml/min; Est GFR (Non-African American) 38.8 ml/min; Potassium 4.1 mmol/L (3.5-5.1)
[2020-11-21 08:08] LABS: Albumin Globulin Ratio 0.6 (0.9-2); Bilirubin,Total 1.4 mg/dl (0.2-1); Globulin 3.5 gm/dl (2.5-4.0); Total Protein 5.7 gm/dl (6.4-8.2)
--- NOTE | 2020-11-21 08:33 | Medical Student Progress Note ---
Date of Service November 21, 2020 Assessment & Plan (1) Atrial fibrillation with rapid ventricular response: Patient is an 89-year-old males with a complex past medical history including A. fib on Eliquis, CHF, BPH with urinary obstruction, CKD 3, hypertension who was recently discharged from the hospital for acute on chronic diastolic CHF and lower extremity cellulitis presents from [facility] now presenting for evaluation of atrial fibrillation with rapid ventricular response. Bacteremia Patient presenting with documented fever, 38 C in the ED. Blood cultures positive for staph aureus. KRYSTAL 11/20 negative for endocarditis. - Source unclear but includes sacral ulcer, possible diverticulitis given initial presentation of abdominal pain and evidence of diverticulosis (without signs of diverticulitis) on imaging, as well pneumonia given patient's new O2 requirement without evidence of fluid overload. His chest x-ray in the ED however was not suggestive. - Ordered repeat chest x-ray 11/21 to rule out pneumonia - Switched from Vanco/ Zosyn to Doxycycline IV 11/21. Will require 14 days of IV treatment from negative blood culture - Ordered repeat blood culture 11/21 Hemodynamic instability in the setting of Atrial fibrillation and history of CHF- RESOLVED Patient with a history of A. fib with RVR on chronic Eliquis previously rate controlled. Was in his usual state of health when [facility], his vitals were assessed and he was noted to be in atrial fibrillation with RVR and he was referred to the hospital. Patient presented to the ER with a BP of 103/75, pulse of 116, and elevated respiratory rate of 27. EKG demonstrating A. fib with RVR. Curbsided cardio 11/19 who recommended 25mg metoprolol and gentle fluid bolus with careful monitoring for fluid overload. Converted to normal rhythm. - Resumed home metoprolol 11/20 -500 mL bolus 11/19, 250mL 11/20, 1 bag LR- monitoring for development of pulmonary edema. Now PO intake only -Continue apixaban CHF Patient recently discharged from the hospital for acute on chronic CHF exacerbation complicated by cellulitis. Patient has been doing well as an outpatient. - No evidence of fluid overload on exam - Monitor fluid status with repeat exams - If respiratory status declines chest x-ray and diuretics - Holding diuretic as Cr elevated 11/21. Likely secondary to poor PO intake. Will plan to continue holding diuretics until nutrition improves (see below). Poor PO intake Patient noted to have elevated Cr. 11/21 after being switch from fluids to PO intake. Patient has poor oral intake. - Nutrition consulted - Continue mirtazapine 15 mg Elevated troponin level-RESOLVED On admission troponin minimally elevated, but patient has evidence of chroni danii elevated troponin. Suspect demand ischemia secondary to CHF. Hypertension History of, holding home antihypertensive given hemodynamic instability. Chronic kidney disease stage III Baseline creatinine 1.2, on presentation 1.28 -Trend daily BMP -Avoid nephrotoxins -Continue Klor-Con -Cr. elevated 11/21- see above Anxiety and depression -Continue fluoxetine 10 mg daily GERD - Continue as esomeprazole FENa: Heart healthy diet Code Status: Full code DVT PPX: On Eliquis PT/OT: Ordered Case Management: Consulted Dispo: Telemetry (2) Elevated troponin I level: (3) Bilateral edema of lower extremity: (4) CHF (congestive heart failure): Heart failure chronicity: acute on chronic Heart failure type: unspecified Qualified Code(s): I50.9 - Heart failure, unspecified (5) Hypertension: (6) Chronic kidney disease, stage 3: Chronic kidney disease stage 3 subtype: stage 3b (GFR 30-44) Qualified Code(s): N18.32 - Chronic kidney disease, stage 3b (7) GERD (gastroesophageal reflux disease): (8) Fever: Admission and Anticipated Discharge Date Admission Date: November 19, 2020 Supervising Attestation Attending attestation Pt seen and examined in concert with St. Dr. Aleksey Artis. In agreement with the documented findings as noted in the resident documentation with any exceptions or additions as noted here. Difficulty obtaining cogent history regarding current status. Denies abdominal pain, CP/SOB, n/v/d/c, OSBORN, vision changes, n/t/w On examination, S1/S2 nl RRR no MCG. CTAB. Abd NT/ND BS+ve. Trace b/l LE edema at the ankle Sepsis with staph aureus bacteremia - TTE without concerning finding. Suspected skin v. lung source. Transition IV abx to doxy. Repeat culture to determine course. AF w/ RVR - resolved - continue metoprolol. Encourage hydration, continue management of underlying infection HFrEF - careful hydration with monitoring for fluid overload. Holding furosemide with borderline low BP, consider restart in AM. Else see resident documentation as noted. Subjective Pt seen at bedside. No acute complaints. Had two large BMs last night. Denies SOB, chest pain, palpitations, subjective fever/chills, and abdominal pain. Review of Systems Review of Systems: All systems reviewed & are unremarkable except as noted in Subjective Physical Exam Physical Exam: GENERAL: nad HEENT: conjunctiva without injection b/l, oropharynx moist, external nose and pinna are normal CHEST: cta bilaterally with no wheezes, rhonchi or rales, good air normal respiratory effort CARDIOVASCULAR: heart regular rate and rhythm, no murmurs, gallops or rubs, trace lower extremity edema ABD: no hepatosplenomegaly or masses, nontender to palpation, nondistended, normal active bowel sounds NEURO: PERRLA Results & Data ([facility]) Vital Signs (Past 12 Hours) Vital Signs Temp Pulse Pulse Resp BP BP Pulse Ox 11/21/20 08:08 36.3 C L 84 17 100/70 98 11/21/20 04:37 36.3 C L 72 16 103/77 97 11/21/20 01:00 36.4 C L 75 16 93/61 L 97 11/20/20 23:00 77
[2020-11-21] MEDS: METOPROLOL SUCC 25MG EXT REL TAB PO SCH ×2 (08:49→23:05)
[2020-11-21] MEDS: POTASSIUM CHLORIDE CRTAB 20 MEQ TABCR PO SCH (08:50)
[2020-11-21] MEDS: allopurinoL 300 MG TAB PO SCH (08:50)
[2020-11-21] MEDS: METOPROLOL TARTRATE 25 MG TAB PO SCH ×2 (08:50→23:05)
[2020-11-21] MEDS: FLUoxetine HCL 10 MG CAP PO SCH (08:50)
[2020-11-21] MEDS: APIXABAN 5 MG TABLET PO SCH ×2 (08:50→23:07)
[2020-11-21] MEDS: FERROUS SULFATE 325 MG TAB PO SCH ×2 (08:50→23:06)
[2020-11-21] MEDS: PANTOprazole 40 MG TAB PO SCH (08:50)
[2020-11-21] MEDS: DOCUSATE SODIUM 100 MG CAP PO SCH ×2 (08:50→23:06)
[2020-11-21] MEDS: POLYETHYLENE (MIRALAX) 17 GM PACK PO SCH ×2 (08:51→23:02)
[2020-11-21] MEDS: DOXYCYCLINE HYCLATE 100 MG in DEXTROSE 5% 100 ML IV SCH (10:55)
[2020-11-21] MEDS: MIRTAZAPINE TAB 15 MG TAB PO SCH (10:55)
--- NOTE | 2020-11-21 11:26 | XRay Report ---
XR chest 1V portable CLINICAL HISTORY: Suspected pneumonia COMPARISON STUDY: 11/19/2020 FINDINGS: The heart is enlarged. There is radiographic evidence of congestive failure/fluid overload. There are increasing bilateral pleural effusions with associated basilar airspace opacities, atelect atic versus infectious/inflammatory[ IMPRESSION: 1. Cardiomegaly with radiographic evidence of congestive failure/fluid overload 2. Increasing bilateral pleural effusions 3. Bibasilar opacities, atelectatic versus infectious/inflammatory. ACT 112: Negative or not required by law. Electronically signed by: Jean Lopes M.D. 11/21/2020 11:25 AM
[2020-11-21] MEDS: ACETAMINOPHEN 500 MG TAB PO PRN (23:01)
[2020-11-22] MEDS: DOXYCYCLINE HYCLATE 100 MG in DEXTROSE 5% 100 ML IV SCH (00:07)
[2020-11-22] MEDS: DAPTOmycin 425 MG in SYRINGE 0 ML IV SCH (06:01)
[2020-11-22 07:57] LABS: Creatinine Clr Calc Pharmacy 35.2 ml/min; Est GFR (African American) 49.5 ml/min; Est GFR (Non-African American) 42.7 ml/min
[2020-11-22 08:16] LABS: Basophils # (auto) 0.01 K/uL (0-0.2); Basophils % (auto) 0.1 %; Eosinophils # (auto) 0.11 K/uL (0-0.5); Eosinophils % (auto) 1.6 %; Hematocrit (blood only) 35.5 % (42-52); Hemoglobin 11.8 g/dL (14.0-18.0); Immature Granulocytes # (auto) 0.02 K/uL (0.00-0.02); Immature Granulocytes % (auto) 0.3 %; Lymphocytes # (auto) 1.22 K/uL (1.2-3.4); Lymphocytes % (auto) 17.3 %; Mean Corpuscular Hgb Conc 33.2 g/dL (32-36); Mean Corpuscular Volume 105.3 fL (80-100); Mean Platelet Volume 10.8 fL (7.4-10.4); Monocytes # (auto) 0.59 K/uL (0.11-0.59); Monocytes % (auto) 8.3 %; Neutrophils # (auto) 5.12 K/uL (1.4-6.5); Neutrophils % (auto) 72.4 %; Platelet Count 146 K/uL (130-400); RDW Coefficient of Variation 17.4 % (11.5-14.5); RDW Standard Deviation 66.3 fL (36.4-46.3); Red Blood Count 3.37 M/uL (4.7-6.1); White Blood Count 7.07 K/uL (4.8-10.8)
[2020-11-22] MEDS: POLYETHYLENE (MIRALAX) 17 GM PACK PO SCH ×2 (08:16→20:15)
[2020-11-22] MEDS: MIRTAZAPINE TAB 15 MG TAB PO SCH (08:16)
[2020-11-22] MEDS: FERROUS SULFATE 325 MG TAB PO SCH ×2 (08:17→20:16)
[2020-11-22] MEDS: APIXABAN 5 MG TABLET PO SCH ×2 (08:17→20:16)
[2020-11-22] MEDS: allopurinoL 300 MG TAB PO SCH (08:17)
[2020-11-22] MEDS: FLUoxetine HCL 10 MG CAP PO SCH (08:17)
[2020-11-22] MEDS: DOCUSATE SODIUM 100 MG CAP PO SCH ×2 (08:17→20:16)
[2020-11-22] MEDS: METOPROLOL SUCC 25MG EXT REL TAB PO SCH (08:17)
[2020-11-22] MEDS: PANTOprazole 40 MG TAB PO SCH (08:17)
[2020-11-22] MEDS: POTASSIUM CHLORIDE CRTAB 20 MEQ TABCR PO SCH (08:17)
[2020-11-22 08:40] LABS: Calcium 8.2 mg/dl (8.5-10.1); Est GFR (African American) 49.1 ml/min; Est GFR (Non-African American) 42.3 ml/min; Potassium 4.2 mmol/L (3.5-5.1)
[2020-11-22] MEDS: cefTRIAXone SODIUM 2,000 MG in DEXTROSE 5% 50 ML IV SCH (09:15)
--- NOTE | 2020-11-22 09:55 | Medical Student Progress Note ---
Date of Service November 22, 2020 Assessment & Plan (1) Bacteremia: Plan: Patient is an 89-year-old males with a complex past medical history including A. fib on Eliquis, CHF, BPH with urinary obstruction, CKD 3, hypertension who was recently discharged from the hospital for acute on chronic diastolic CHF and lower extremity cellulitis presents from [facility] now presenting for evaluation of atrial fibrillation with rapid ventricular response. Bacteremia Patient presenting with documented fever, 38 C in the ED. Blood cultures positive for staph aureus. KRYSTAL 11/20 negative for endocarditis. - Source unclear but includes sacral ulcer, possible diverticulitis given initial presentation of abdominal pain and evidence of diverticulosis (without signs of diverticulitis) on imaging, as well pneumonia given patient's new O2 requirement without evidence of fluid overload. His chest x-ray in the ED however was not suggestive. Repeat chest x-ray 11/21 also negative. Sacral ulcer is most probably source at this point. - Repeat blood culture 11/21 gram positive clusters, speciation pending - Discontinued Vanco/ Zosyn and began Doxycycline IV 11/21 per initial blood culture sensitivities. After repeat blood cultures were positive, doxycycline was discontinued and daptomycin and ceftriaxone IV were begun 11/21. Plan to reevaluate antibiotics after speciation and sensitives return for repeat blood cultures. - Will require 14 days of IV treatment from negative blood culture - Ordered spine XR to evaluate for potential deeper involvement of sacral ulcer. Consider CT depending on XR results. Hemodynamic instability in the setting of Atrial fibrillation and history of CHF- RESOLVED Patient with a history of A. fib with RVR on chronic Eliquis previously rate controlled. Was in his usual state of health when he was noted to have a fever [place] the detention, his vitals were assessed and he was noted to be in atrial fibrillation with RVR and he was referred to the hospital. Patient presented to the ER with a BP of 103/75, pulse of 116, and elevated respiratory rate of 27. EKG demonstrating A. fib with RVR. Curbsided cardio 11/19 who recommended 25mg metoprolol and gentle fluid bolus with careful monitoring for fluid overload. Converted to normal rhythm. - Resumed home metoprolol 11/20 -500 mL bolus 11/19, 250mL 11/20, 1 bag LR- monitoring for development of pulmonary edema. Now PO intake only -Continue apixaban CHF Patient recently discharged from the hospital for acute on chronic CHF exacerbation complicated by cellulitis. Patient has been doing well as an outpa tient. - No evidence of fluid overload on exam - Monitor fluid status with repeat exams - If respiratory status declines chest x-ray and diuretics - Holding diuretic as Cr elevated 11/21. Cr. improving 11/22. - 11/21 chest XR showed some increased congestion - Restarted home does of furosemide IV 11/22 Poor PO intake Patient noted to have elevated Cr. 11/21 after being switch from fluids to PO intake. Patient has poor oral intake. - Nutrition consulted - Continue mirtazapine 15 mg Elevated troponin level-RESOLVED On admission troponin minimally elevated, but patient has evidence of chronically elevated troponin. Suspect demand ischemia secondary to CHF. Hypertension History of, holding home antihypertensive given hemodynamic instability. Chronic kidney disease stage III Baseline creatinine 1.2, on presentation 1.28 -Trend daily BMP -Avoid nephrotoxins -Continue Klor-Con -Cr. elevated 11/21- see above Anxiety and depression -Continue fluoxetine 10 mg daily GERD - Continue as esomeprazole FENa: Heart healthy diet Code Status: Full code DVT PPX: On Eliquis PT/OT: Ordered Case Management: Consulted Dispo: Telemetry Admission and Anticipated Discharge Date Admission Date: November 19, 2020 Supervising Attestation Attending attestation Pt seen and examined in concert with Dr. Toussaint, [facility]. Dr. Ryder. In agreement with the documented findings as noted in the resident documentation with any exceptions or additions as noted here. Significant improvement in communication and coherency with persistent difficulty in focus. Denies abdominal pain, CP/SOB, n/v/d/c, OSBORN, vision changes, n/t/w On examination, S1/S2 nl RRR no MCG. CTAB. Abd NT/ND BS+ve. Trace b/l LE edema at the ankle Sepsis with staph aureus bacteremia - TTE without concerning finding. Repeat BCx also with GPC - broaden abx, repeat Cx, consider KRYSTAL after d/w cardiology in AM re: persistent Cx despite appropriate coverage. Sacral wound with cellulitis - likely source for bacteremia - imaging evaluation as noted for concern for underlying impingement on structures. continue abx as above AF w/ RVR - resolved - continue metoprolol. Encourage hydration, continue management of underlying infection HFrEF - careful hydration with monitoring for fluid overload. Restart furosemide IV at home dose and monitor UOP Else see resident documentation as noted. Subjective Patient seen seated in bed. Denies any pain. Reports good appetite. Denies chest pain, palpitations, SOB, abdominal pain, fevers/chills. Review of Systems Review of Systems: All systems reviewed & are unremarkable except as noted in Subjective Physical Exam Physical Exam: GENERAL: nad HEENT: conjunctiva without injection b/l, oropharynx moist, external nose and pinna are normal CHEST: cta bilaterally with no wheezes, rhonchi or rales, good air normal respiratory effort CARDIOVASCULAR: heart regular rate and rhythm, no murmurs, gallops or rubs, trace lower extremity edema ABD: no hepatosplenomegaly or masses, nontender to palpation, nondistended, normal active bowel sounds NEURO: PERRLA Results & Data ([facility]) Vital Signs (Past 12 Hours) Vital Signs Temp Pulse Resp BP Pulse Ox 11/22/20 07:50 36.4 C L 80 18 111/75 96 11/22/20 04:33 36.3 C L 87 18 113/76 95 11/21/20 23:39 36.4 C L 97 H 18 112/77 90
--- NOTE | 2020-11-22 10:13 | Cardiology Progress Note ---
Date of Service November 22, 2020 Assessment & Plan (1) Atrial fibrillation with rapid ventricular response: (2) Elevated troponin I level: (3) CHF (congestive heart failure): (4) Valvular heart disease: Plan: Patient well-known to me from outpatient care. He seems to be doing well subjectively and appears euvolemic to minimally hypervolemic. He is not confused today. As noted, most likely his rhythm remains atrial flutter, but his current rate is well controlled on a low dose of metoprolol. Would continue this as outpatient. He has chronic renal insufficiency but will very likely become volume overloaded off diuretics. Recommend using his current weight as a baseline and upon discharge utilizing a weight-based sliding scale diuretic regimen, or simply returning him to the furosemide 40 mg every other day that he was on prior to admission, since he seemed to be stable on this regimen. Will sign off, please contact if any change in clinical status. Thank you for the opportunity to see Mr. Rhodes. Admission and Anticipated Discharge Date Admission Date: November 19, 2020 Subjective Patient felt much better today. Complained only of his longstanding ankle/foot arthralgias. Noted that he had severe "total body" pain the past few days, which has since resolved. He denies any chest pain, dyspnea, subjective palpitations, or lightheadedness. Review of monitoring specialist shows that he is most likely still in atrial flutter, but with a controlled ventricular rate (70-80 bpm overnight). A number of his ECGs over time have been read as sinus rhythm and are actually probably atrial flutter, this becomes more apparent when he is tachycardic but can be seen at times even with a normal heart rate. In the past 6 months he has not had an ECG with distinctive P waves (there are some with minimal baseline perturbations which are more likely T waves than P waves). Physical Exam Physical Exam: No distress. Weight not obtained today. Input greater than output by 565 mL. Skin: no ecchymoses or generalized lesions. HEENT: unremarkable. Neck: Jugular venous pulse one quarter the way to the angle of the jaw at 90 degrees, no carotid bruits. Lungs: Mildly decreased breath sounds but clear. No accessory muscle use. Cardiac: fairly regular rhythm, 2/6 apical holosystolic murmur, no diastolic murmur or gallop. Abdomen: benign. Extremities: Trace pretibial edema on the right, none on the left. Neurologic: normal affect and conversation today, grossly nonfocal. Results & Data ([facility]) Vital Signs (Past 12 Hours) Vital Signs Temp Pulse Resp BP Pulse Ox 11/22/20 07:50 97.5 F L 80 18 111/75 96 11/22/20 04:33 97.3 F L 87 18 113/76 95 11/21/20 23:39 97.5 F L 97 H 18 112/77 90 Laboratory Results BUN 37, creatinine 1.46 (stable). classroom monitor as noted in subjective. PG Care Time/CCT Total # of Minutes Spent Total Time Spent with Patient: Total time spent is greater than 50% in coordination of care (as documented) at patient's floor/unit and/or counseling patient: Coding Level of Care Code 21274 Subseq Hosp Care Lvl 3 Diagnoses Atrial fibrillation with rapid ventricular response I48.91 Elevated troponin I level R77.8 CHF (congestive heart failure) I50.9 Heart failure chronicity: acute on chronic Heart failure type: unspecified Valvular heart disease I38 (1) CHF (congestive heart failure) Heart failure chronicity: acute on chronic Heart failure type: unspecified Qualified Code(s): I50.9 - Heart failure, unspecified
[2020-11-22] MEDS ORDERED: FUROSEMIDE 20 MG in SYRINGE 0 ML IV ONE (11:00)
--- NOTE | 2020-11-22 12:04 | XRay Report ---
XR sacrum coccyx min 2V HISTORY: 89 years-old Male r/o osteo acute low back and sacral pain COMPARISON: CT abdomen pelvis 11/19/2020 TECHNIQUE: 3 views of the sacrum and coccyx FINDINGS: Left hip total joint arthroplasty. Moderate right hip osteoarthritis. Degenerative changes of the jyotsna ged lumbar spine. Demineralized appearance of the bones. No acute fracture, dislocation or osseous er osion. Surgical clips project over the scrotum. IMPRESSION: No acute bony abnormality. ACT 112: Negative or not required by law. The above report was generated using voice recognition software. It may contain grammatical, syntax o r spelling errors. Electronically signed by: Gabriel Beltran M.D. 11/22/2020 12:03 PM
--- NOTE | 2020-11-22 12:06 | XRay Report ---
XR lumbar spine 2-3V CLINICAL HISTORY: Back pain COMPARISON STUDY: No previous studies for comparison. FINDINGS: There is an S-shaped scoliosis. There are moderately advanced multilevel degenerative lei es. No fractures or subluxations are visualized. There are surgical clips within the right upper quad rant consistent with a prior cholecystectomy IMPRESSION: 1. Scoliosis and moderately advanced multilevel degenerative change 2. No acute fractures 3. No destructive lesions identified on conventional radiographic imaging ACT 112: Negative or not required by law. Electronically signed by: Jean Lopes M.D. 11/22/2020 12:05 PM
[2020-11-22] MEDS: METOPROLOL TARTRATE 25 MG TAB PO SCH ×2 (13:47→20:16)
[2020-11-22] MEDS: ACETAMINOPHEN 500 MG TAB PO PRN (15:19)
[2020-11-23] MEDS: DAPTOmycin 425 MG in SYRINGE 0 ML IV SCH (05:42)
--- NOTE | 2020-11-23 07:17 | Medical Student Progress Note ---
Date of Service November 23, 2020 Assessment & Plan (1) Bacteremia: Plan: Patient is an 89-year-old males with a complex past medical history including A. fib on Eliquis, CHF, BPH with urinary obstruction, CKD 3, hypertension who was recently discharged from the hospital for acute on chronic diastolic CHF and lower extremity cellulitis presents from [facility] now presenting for evaluation of atrial fibrillation with rapid ventricular response. Bacteremia Patient presenting with documented fever, 38 C in the ED. Blood cultures positive for staph aureus. KRYSTAL 11/20 negative for endocarditis. - Source unclear but includes sacral ulcer, possible diverticulitis given initial presentation of abdominal pain and evidence of diverticulosis (without signs of diverticulitis) on imaging, as well pneumonia given patient's new O2 requirement without evidence of fluid overload. His chest x-ray in the ED however was not suggestive. Repeat chest x-ray 11/21 also negative. Sacral ulcer is most probably source at this point. Spine XR 11/23 negative for signs of infectious process - Repeat blood culture 11/21 also positive staph aureus - Discontinued Vanco/ Zosyn and began Doxycycline IV 11/21 per initial blood culture sensitivities. After repeat blood cultures were positive, doxycycline was discontinued and daptomycin and ceftriaxone IV were begun 11/21. Discontinued daptomycin and ceftriaxone 11/23 and started Ancef per ID recommendations - ID consulted. Recommended Ancef and KRYSTAL - Will require 14 days of IV treatment from negative blood culture Hemodynamic instability in the setting of Atrial fibrillation and history of CHF- RESOLVED Patient with a history of A. fib with RVR on chronic Eliquis previously rate controlled. Was in his usual state of health when [facility], his vitals were assessed and he was noted to be in atrial fibrillation with RVR and he was referred to the hospital. Patient presented to the ER with a BP of 103/75, pulse of 116, and elevated respiratory rate of 27. EKG demonstrating A. fib with RVR. Curbsided cardio 11/19 who recommended 25mg metoprolol and gentle fluid bolus with careful monitoring for fluid overload. Converted to normal rhythm. - Resumed home metoprolol 11/20 -500 mL bolus 11/19, 250mL 11/20, 1 bag LR- monitoring for development of pulmonary edema. Now PO intake only -Continue apixaban -rate controlled but noted to be in atrial flutter CHF Patient recently discharged from the hospital for acute on chronic CHF exacerbation complicated by cellulitis. Patient has been doing well as an ou tpatient. - No evidence of fluid overload on exam - Monitor fluid status with repeat exams - If respiratory status declines chest x-ray and diuretics - 11/21 chest XR showed some increased congestion - Cr elevated- continue monitoring - Restarted home does of furosemide IV 11/22 -Cardiology recommends home dose furosemide 40mg every other day or a weight based diuretic scale Poor PO intake Patient noted to have elevated Cr. 11/21 after being switch from fluids to PO intake. Patient has poor oral intake. - Nutrition consulted - Continue mirtazapine 15 mg Elevated troponin level-RESOLVED On admission troponin minimally elevated, but patient has evidence of chronically elevated troponin. Suspect demand ischemia secondary to CHF. Hypertension History of, holding home antihypertensive given hemodynamic instability. Chronic kidney disease stage III Baseline creatinine 1.2, on presentation 1.28 -Trend daily BMP -Avoid nephrotoxins -Continue Klor-Con -Cr. elevated Anxiety and depression -Continue fluoxetine 10 mg daily - No suicidal ideation or plan. Patient does not require q15 minute checks. GERD - Continue as esomeprazole FENa: Heart healthy diet Code Status: Full code DVT PPX: On Eliquis PT/OT: Ordered Case Management: Consulted Dispo: Telemetry Admission and Anticipated Discharge Date Admission Date: November 19, 2020 Supervising Attestation I also saw the patient concurrent with the resident physician and medical student and confirmed bradshaw portions of the history and physical examination. I agree with the impression and plan as noted in the documentation. Patient is without complaint at the time of our exam. Exam 103/76, 84, 19, 36.6, 94% on room air Pleasant. Alert. No acute distress. HEENT unremarkable. Heart seems regular upon auscultation (although looks to be rate controlled A. fib/a flutter on monitor). 2/6 holosystolic murmur. Trace lower extremity edema. Data Hemoglobin 12.2, platelet count 154 BUN 38, creatinine 1.58 Blood cultures dated 11/21/2020 shows Staph aureus in 2/2 bottles Blood cultures dated 11/19/2020 shows staph aureus in 2/2 bottles Imaging 2-view chest x-ray from today shows resolving congestive failure with residual bilateral pleural effusions Impression and plan Persistent staph aureus bacteremia, source uncertain Consult infectious disease Despite normal TTE, will likely need to consider KRYSTAL given persistent bacteremia Sacral wound Imaging at overly concerning for osteomyelitis Continue antibiotics Atrial fibrillation with rapid ventricular response, resolved Good rate control now Continue apixaban, although may need to adjust dose if renal function does not return to baseline Congestive heart failure Improved with diuresis Monitor output and renal function Subjective Patient seen at bedside. No acute complaints. Denies chest pain, palpitations, SOB, abdominal pain, subjective fever/ chills. He reports thinking about , but denies suicidal ideation or plan. Review of Systems Review of Systems: All systems reviewed & are unremarkable except as noted in Subjective Physical Exam Physical Exam: GENERAL: nad HEENT: conjunctiva without injection b/l, oropharynx moist, external nose and pinna are normal CHEST: cta bilaterally with no wheezes, rhonchi or rales, good air normal respiratory effort CARDIOVASCULAR: heart regular rate and rhythm, no murmurs, gallops or rubs, trace lower extremity edema ABD: nontender to palpation, nondistended, normal active bowel sounds NEURO: PERRLA Results & Data ([facility]) Vital Signs (Past 12 Hours) Vital Signs Temp Pulse Pulse Resp BP BP Pulse Ox 11/23/20 07:07 36.5 C 80 19 122/86 97 11/23/20 03:53 36.5 C 83 24 109/76 91 11/22/20 23:59 89 11/22/20 23:33 36.4 C L 86 20 109/81 91 11/22/20 20:14 36.3 C L 82 22 106/78 95 11/22/20 20:01 82
[2020-11-23 08:09] LABS: Basophils # (auto) 0.02 K/uL (0-0.2); Basophils % (auto) 0.3 %; Eosinophils # (auto) 0.15 K/uL (0-0.5); Eosinophils % (auto) 2.1 %; Hematocrit (blood only) 37.8 % (42-52); Hemoglobin 12.2 g/dL (14.0-18.0); Immature Granulocytes # (auto) 0.04 K/uL (0.00-0.02); Immature Granulocytes % (auto) 0.5 %; Lymphocytes # (auto) 1.81 K/uL (1.2-3.4); Lymphocytes % (auto) 24.8 %; Mean Corpuscular Hemoglobin 34.7 pg (25-34); Mean Corpuscular Hgb Conc 32.3 g/dL (32-36); Mean Corpuscular Volume 107.4 fL (80-100); Mean Platelet Volume 11.1 fL (7.4-10.4); Monocytes # (auto) 0.47 K/uL (0.11-0.59); Monocytes % (auto) 6.4 %; Neutrophils # (auto) 4.82 K/uL (1.4-6.5); Neutrophils % (auto) 65.9 %; Platelet Count 154 K/uL (130-400); RDW Coefficient of Variation 17.1 % (11.5-14.5); RDW Standard Deviation 67.1 fL (36.4-46.3); Red Blood Count 3.52 M/uL (4.7-6.1); White Blood Count 7.31 K/uL (4.8-10.8)
[2020-11-23] MEDS: PANTOprazole 40 MG TAB PO SCH (08:20)
[2020-11-23] MEDS: FLUoxetine HCL 10 MG CAP PO SCH (08:20)
[2020-11-23] MEDS: FERROUS SULFATE 325 MG TAB PO SCH ×2 (08:21→21:03)
[2020-11-23] MEDS: APIXABAN 5 MG TABLET PO SCH ×2 (08:21→21:03)
[2020-11-23] MEDS: allopurinoL 300 MG TAB PO SCH (08:21)
[2020-11-23] MEDS: DOCUSATE SODIUM 100 MG CAP PO SCH ×2 (08:21→20:59)
[2020-11-23] MEDS: METOPROLOL TARTRATE 25 MG TAB PO SCH ×2 (08:21→21:03)
[2020-11-23] MEDS: POLYETHYLENE (MIRALAX) 17 GM PACK PO SCH ×2 (08:21→20:59)
[2020-11-23] MEDS: POTASSIUM CHLORIDE CRTAB 20 MEQ TABCR PO SCH (08:21)
[2020-11-23] MEDS: MIRTAZAPINE TAB 15 MG TAB PO SCH (08:21)
[2020-11-23 08:41] LABS: Calcium 8.3 mg/dl (8.5-10.1); Creatinine Clr Calc Pharmacy 32.3 ml/min; Est GFR (African American) 44.6 ml/min; Est GFR (Non-African American) 38.5 ml/min
[2020-11-23] MEDS: cefTRIAXone SODIUM 2,000 MG in DEXTROSE 5% 50 ML IV SCH (09:12)
--- NOTE | 2020-11-23 10:20 | CT Scan Report ---
CT chest diagnostic wo con CT DOSE: 301.74 mGy.cm CLINICAL HISTORY: 89 years-old Male with bacteremia, unknown source, also care to T spine. Acute sep sis. TECHNIQUE: Multiaxial CT images of the chest were performed without contrast. A dose lowering techni que was utilized adhering to the principles of ALARA. COMPARISON: Chest radiograph 11/21/2020, CT abdomen and pelvis 11/19/2020, 10/20/2020, 08/04/2020, 014. FINDINGS: Heterogeneous thyroid. No pathologically enlarged lymph nodes. Moderate cardiomegaly. Trace pericardial effusion. Moderate to extensive coronary artery calcifications. Atherosclerosis of the a jl with ectasia measuring up to 3.9 x 3.9 cm. Dilated pulmonary artery measures 3.5 cm suggestive o f pulmonary artery hypertension. Moderate layering pleural effusions, right greater than left have mi ldly increased in size from 11/19/2020. There is no pneumothorax. There is a mixed groundglass and con solidative 1.2 x 0.9 cm subpleural opacity of the right upper lobe on image 132. There is an ovoid 3. 5 cm circumscribed consolidative opacity of the medial segment right middle lobe which appears simila r dating back to the 08/04/2020 exam. A consolidative opacities noted within this distribution on the 2013 exam which measured 1.8 cm in retrospect. Mild consolidation of the inferior segment lingula. Th ere is no overt pulmonary edema. Central airways are patent. Small volume of upper abdominal ascites. Mild distal esophageal wall thickening. Mild generalized bod y wall edema. Severe osteoarthritis of the glenohumeral joints. Degenerative changes of the spine. IMPRESSION: 1. Moderate cardiomegaly without overt pulmonary edema. 2. Moderate layering pleural effusions have mildly increased in size from 11/19/2020. Mild associated compressive bibasilar atelectasis. 3. Oval-shaped consolidative opacity of the medial segment right middle lobe measuring 3.5 cm is unch anged from recent comparisons however has progressively increased in size from 2014 suggestive of harshil und atelectasis. Attention at follow-up recommended. 4. Mixed groundglass and consolidative subpleural nodular opacity of the right upper lobe measuring 1 .2 cm. This may be on an infectious or inflammatory basis, however a 3 month follow-up chest CT is re commended to exclude a bronchogenic malignancy. 5. No adenopathy. 6. Additional findings as above. ACT 112: Negative or not required by law. Electronically signed by: Gabriel Beltran M.D. 11/23/2020 10:19 AM
--- NOTE | 2020-11-23 11:30 | XRay Report ---
XR chest 2V PA/lateral CLINICAL HISTORY: Congestive failure. Follow-up study COMPARISON STUDY: 11/21/2020 FINDINGS: The heart remains enlarged. There is resolving pulmonary vascular congestion with residual bilateral pleural effusions and associated basilar airspace opacities likely atelectatic. Arthritic c hanges are present within the shoulders.[ IMPRESSION: Resolving congestive failure/fluid overload with residual bilateral pleural effusions. ACT 112: Negative or not required by law. Electronically signed by: Jean Lopes M.D. 11/23/2020 11:29 AM
[2020-11-23] MEDS ORDERED: CALCIUM CARBONATE 500 MG CHEWABLE TAB PO PRN (16:17)
[2020-11-23] MEDS ORDERED: ceFAZolin 1000MG 1,000 MG/7.5 ML SYR IV SCH (21:00)
[2020-11-23] MEDS: ACETAMINOPHEN 500 MG TAB PO PRN (21:02)
[2020-11-24 05:42] LABS: Basophils # (auto) 0.01 K/uL (0-0.2); Basophils % (auto) 0.1 %; Eosinophils % (auto) 1.4 %; Hematocrit (blood only) 36.8 % (42-52); Hemoglobin 12.2 g/dL (14.0-18.0); Immature Granulocytes # (auto) 0.05 K/uL (0.00-0.02); Immature Granulocytes % (auto) 0.7 %; Lymphocytes # (auto) 1.44 K/uL (1.2-3.4); Lymphocytes % (auto) 19.5 %; Mean Corpuscular Hemoglobin 35.2 pg (25-34); Mean Corpuscular Hgb Conc 33.2 g/dL (32-36); Mean Corpuscular Volume 106.1 fL (80-100); Mean Platelet Volume 11.1 fL (7.4-10.4); Monocytes # (auto) 0.53 K/uL (0.11-0.59); Monocytes % (auto) 7.2 %; Neutrophils # (auto) 5.26 K/uL (1.4-6.5); Neutrophils % (auto) 71.1 %; Platelet Count 149 K/uL (130-400); RDW Coefficient of Variation 17.1 % (11.5-14.5); RDW Standard Deviation 66.4 fL (36.4-46.3); Red Blood Count 3.47 M/uL (4.7-6.1); White Blood Count 7.39 K/uL (4.8-10.8)
[2020-11-24 06:09] LABS: BUN Creatinine Ratio 28.3 (10-20); Calcium 8.2 mg/dl (8.5-10.1); Creatinine Clr Calc Pharmacy 39.6 ml/min; Est GFR (Non-African American) 49.2 ml/min
--- NOTE | 2020-11-24 06:43 | Hospitalist Progress Note ---
Date of Service November 24, 2020 Assessment & Plan (1) Bacteremia: Plan: 89-year-old males with a complex past medical history including A. fib on Eliquis, CHF, BPH with urinary obstruction, CKD 3, hypertension who was recently discharged from the hospital for acute on chronic diastolic CHF and lower extremity cellulitis presents from [facility] now presenting for evaluation of atrial fibrillation with rapid ventricular response. RVR resolved. Has bacteremia of unknown etiology. Stable Bacteremia Patient presenting with documented fever, 38 C in the ED. Blood cultures positive for staph aureus. KRYSTAL 11/20 negative for endocarditis. - Source unclear but includes sacral ulcer, possible diverticulitis given initial presentation of abdominal pain and evidence of diverticulosis (without signs of diverticulitis) on imaging, as well pneumonia given patient's new O2 requirement without evidence of fluid overload. His chest x-ray in the ED however was not suggestive. Repeat chest x-ray 11/21 also negative. Sacral ulcer is most probably source at this point. Spine XR 11/23 negative for signs of infectious process - Repeat blood culture 11/21 also positive staph aureus. Resistant to clinda and erythromycin. - Discontinued Vanco/ Zosyn and began Doxycycline IV 11/21 per initial blood culture sensitivities. After repeat blood cultures were positive, doxycycline was discontinued and daptomycin and ceftriaxone IV were begun 11/21. Discontinued daptomycin and ceftriaxone 11/23 and started IV Ancef per ID recommendations - ID consulted. Per 11/23 recs, recommended Ancef and KRYSTAL. Will repeat BC AM of 11/25. If KRYSTAL is unrevealing, and if repeat blood cultures remain positive after a day or two of ancef therapy, then a sacral MRI should be considered. - follow murmur clinically. - KRYSTAL will be performed on 11/26. - Will require 14 days of IV treatment from negative blood culture mild acute delirium versus mild cognitive impairment - may have component of hospital delirium - noticed on AM exam 11/24, but less noticeable during PM rounds - monitor clinically sacral ulcer - per prior imaging exams, less likely source of bacteremia - as per above, will consider MRI sacrum if KRYSTAL negative Hemodynamic instability in the setting of Atrial fibrillation and history of CHF- RESOLVED Patient with a history of A. fib with RVR on chronic Eliquis previously rate controlled. Was in his usual state of health when he was noted to have a fever at the retirement, his vitals were assessed and he was noted to be in atrial fibrillation with RVR and he was referred to the hospital. Patient presented to the ER with a BP of 103/75, pulse of 116, and elevated respiratory rate of 27. EKG demonstrating A. fib with RVR. Curbsided cardio 11/19 who recommended 25mg metoprolol and gentle fluid bolus with careful monitoring for fluid overload. Converted to normal rhythm. - Resumed home metoprolol 11/20 -500 mL bolus 11/19, 250mL 11/20, 1 bag LR- monitoring for development of pulmonary edema. Now PO intake only -Continue apixaban -rate controlled but noted to be in atrial flutter. continue metoprolol 25 mg PO BID. PRN IV Lopressor 5 for sustained >120 HR. CHF Patient recently discharged from the hospital for acute on chronic CHF exacerbation complicated by cellulitis. Patient has been doing well as an outpatient. - No evidence of fluid overload on exam - Monitor fluid status with repeat exams - If respiratory status declines chest x-ray and diuretics - 11/21 chest XR showed some increased congestion - Cr elevated- continue monitoring - 24 hr I/O: 1.2L in 1.2L out. Cumulative output incomplete - Provided home does of furosemide (PO 40mg=20mg IV) IV on 11/22 -Cardiology recommends home dose furosemide 40mg every other day or a weight based diuretic scale -Continue home dose PO lasix 40 every other day starting 11/24 -Continue Klor-Con 20meq daily Poor PO intake Patient noted to have elevated Cr. 11/21 after being switch from fluids to PO intake. Patient has poor oral intake. - Nutrition consulted - Continue mirtazapine 15 mg Suspected demand ischemia On admission troponin minimally elevated, but patient has evidence of chronically elevated troponin. Suspect demand ischemia secondary to CHF. - troponin has since peaked at 1.66 on 11/20 Hypertension History of, holding home antihypertensive given hemodynamic instability. acute kidney disease on chronic kidney disease stage III Baseline creatinine 1.2, worsened to 1.58 during this admission, since resolved to 1.29 -Trend daily BMP -Avoid nephrotoxins Anxiety and depression -Continue fluoxetine 10 mg daily - No suicidal ideation or plan. Patient does not require q15 minute checks. GERD - Continue as esomeprazole FENa: Heart healthy, low sodium Code Status: Full code DVT PPX: On Eliquis Dispo: PCU. OT recommends SNF. PT recommends PCF. dispo on hold, waiting on KRYSTAL to be performed on 11/26/20 (2) Atrial fibrillation with rapid ventricular response: (3) Diastolic CHF: (4) Chronic kidney disease, stage 3: (5) Hypertension: (6) GERD (gastroesophageal reflux disease): (7) Anxiety and depression: Admission and Anticipated Discharge Date Admission Date: November 19, 2020 Supervising Physician Co-Signing Physician Notes I also saw the patient concurrent with the resident physician and confirmed bradshaw portions of the history and physical examination. I agree with the impression and plan as noted in the documentation. Patient is without complaint at the time of our exam. He is seated in the bedside chair sleeping; he awakens to voice. He is alert and oriented to time date and place (he was a little disoriented earlier this morning). He was able to summarize the plot of the book he had just completed reading. Exam 116/82, 79, 17, 36.4, 97% on room air Pleasant. Alert. No acute distress. HEENT unremarkable. Heart seems regular upon auscultation (although looks to be rate controlled A. fib/a flutter on monitor). 2/6 holosystolic murmur at apex. Trace lower extremity edema. Data Hemoglobin 12.2, platelet count 149 BUN 36, creatinine 1.29 Blood cultures dated 11/21/2020 shows Staph aureus in 2/2 bottles Blood cultures dated 11/19/2020 shows staph aureus in 2/2 bottles Impression and plan Persistent staph aureus bacteremia, source uncertain Infectious disease consulted Ancef 1 g every 8 hours Given persistent bacteremia, agree with transesophageal echocardiogram Will reculture blood tomorrow AM Sacral wound Imaging not overly concerning for osteomyelitis Continue antibiotics Atrial fibrillation with rapid ventricular response, resolved Good rate control now Continue apixaban, although may need to adjust dose if renal function does not return to baseline Congestive heart failure Improved with diuresis Monitor output and renal function Subjective Patient is feeling good. No palpitation. No SOB. Tolerating meals. Denies all ROS complaints. Review of Systems Review of Systems: Constitutional: Denies fever, chills Eyes: Denies blurry vision, vision changes ENT: Denies sore throat Cardiovascular: Denies chest pain, palpitations Respiratory: Denies shortness of breath Gastrointestinal: Denies abdominal pain, nausea, vomiting, constipation, diarrhea Genitourinary: Denies urinary symptoms including dysuria Musculoskeletal: Denies weakness, muscle aches/pain, joint aches/pain Neurological: Denies headache, numbness, tingling, focal weakness Physical Exam Physical Exam: General: NAD. Cooperative. Possibly mildly confused. Unsure of year. Initially stated name was karlie desai but later stated own name. KNows he is in hospital, but [place] Unsure why he is here. Denies chronic memory issues. Appears sleepy. HEENT: Atraumatic, normocephalic. Pulm: CTAB. -wheezes, -rales, -rhonchi. No respiratory distress. Cardiac: RRR, 2/6 systolic blowing murmur at aortic region and apex. LE edema trace on L. 2+ on right. Abdominal: Nontender, nondistended, soft. Results & Data Results & Data ([facility]) Vital Signs (Past 12 Hours) Vital Signs Temp Pulse Pulse Pulse Resp BP Pulse Ox 11/24/20 04:00 37.1 C 78 17 133/92 99 11/23/20 23:59 85 11/23/20 22:55 36.7 C 95 H 18 115/69 94 11/23/20 20:00 103 H 11/23/20 19:16 36.5 C 93 H 18 119/79 96 Laboratory Results H/H stable. no leukocytosis. LASHAWN resolved. Cr 1.29 Diagnostic Findings 11/23 cxr: Resolving congestive failure/fluid overload with residual bilateral pleural effusions. 11/21 BC s aureus, prelim. resistant to clinda and erythromycin 11/20 TTE flattened septum c/w RV overload. EF 45-50. moderate L pleural effusion Resident Activity Tracking Resident Involvement: Resident Care Provided Care Provided: Adult [facility] Medicine (1) Chronic kidney disease, stage 3 Chronic kidney disease stage 3 subtype: stage 3b (GFR 30-44) Qualified Co de(s): N18.32 - Chronic kidney disease, stage 3b
--- NOTE | 2020-11-24 07:29 | Anesthesiology Consultation ---
Date of Service November 24, 2020 Assessment & Plan (1) Encounter for pre-operative examination: Chart Review Chart Review: Acceptable Risk for Surgery History Height/Weight Height: 5 ft 9 in Weight: 75.3 kg Allergies Allergy/AdvReac Type Severity Reaction Status Date / Time No Known Allergies Allergy Unknown Verified 11/19/20 12:21 Medications Home Medications Medication Instructions Recorded Confirmed Last Taken allopurinol 300 mg tablet 300 mg PO QAM tab 01/21/19 11/19/20 11/19/20 esomeprazole magnesium 40 mg 40 mg PO QAM cap 01/21/19 11/19/20 11/19/20 capsule,delayed release apixaban 5 mg tablet (Eliquis) 5 mg PO BID #60 tab 07/26/20 11/19/20 11/19/20 ferrous sulfate 325 mg (65 mg 325 mg PO BID #60 tab 10/15/20 11/19/20 11/19/20 iron) tablet fluoxetine 10 mg capsule 10 mg PO DAILY 10/15/20 11/19/20 11/19/20 metoprolol succinate 25 mg 12.5 mg PO BID tab 10/15/20 11/19/20 11/19/20 tablet,extended release 24 hr potassium chloride 20 mEq 20 meq PO QAM #0 tab 11/03/20 11/19/20 11/19/20 tablet,extended release(part/cryst) (Klor-Con M) docusate sodium 100 mg capsule 100 mg PO BID 11/15/20 11/19/20 11/19/20 (Colace) mirtazapine 15 mg tablet (Remeron) 15 mg PO DAILY 11/15/20 11/19/20 11/19/20 furosemide 40 mg tablet 40 mg PO DAILY 11/19/20 11/19/20 11/19/20 Active Medications Generic Name Dose Route Start Last Admin Trade Name Freq PRN Reason Stop Dose Admin Acetaminophen 1,000 mg 11/19/20 20:31 11/23/20 21:02 Acetaminophen 500 Mg Tab PO 12/19/20 20:30 1,000 mg Q8H PRN Administration Pain or Fever Allopurinol 300 mg 11/19/20 20:31 11/23/20 08:21 Allopurinol 300 Mg Tab PO 12/19/20 20:30 300 mg QAM MEJIA Administration Apixaban 5 mg 11/19/20 21:00 11/23/20 21:03 Apixaban 5 Mg Tablet PO 12/19/20 20:59 5 mg BID MEJIA Administration Docusate Sodium 100 mg 11/19/20 21:00 11/23/20 20:59 Docusate Sodium 100 Mg Cap PO 12/19/20 20:59 Not Given BID MEJIA Ferrous Sulfate 325 mg 11/19/20 21:00 11/23/20 21:03 Ferrous Sulfate 325 Mg Tab PO 12/19/20 20:59 325 mg BID MEJIA Administration Fluoxetine HCl 10 mg 11/20/20 09:00 11/23/20 08:20 Fluoxetine Hcl 10 Mg Cap PO 12/20/20 08:59 10 mg DAILY MEJIA Administration Cefazolin Sodium 1,000 mg in 7.5 mls @ 2.5 mls/min 11/23/20 21:00 11/23/20 21:03 Ancef 1000mg IV 12/07/20 20:59 2.5 mls/min Q12 MEJIA Administration Metoprolol Tartrate 25 mg 11/20/20 21:00 11/23/20 21:03 Metoprolol Tartrate 25 Mg Tab PO 12/20/20 20:59 25 mg BID MEJIA Administration Mirtazapine 15 mg 11/19/20 20:31 11/23/20 08:21 Mirtazapine Tab 15 Mg Tab PO 12/19/20 20:30 15 mg DAILY MEJIA Administration Pantoprazole Sodium 40 mg 11/20/20 09:00 11/23/20 08:20 Pantoprazole 40 Mg Tab PO 12/20/20 08:59 40 mg QAM MEJIA Administration Protocol Polyethylene Glycol 17 gm 11/19/20 21:00 11/23/20 20:59 Polyethylene (Miralax) 17 Gm Pack PO 12/19/20 20:59 Not Given BID MEJIA Potassium Chloride 20 meq 11/19/20 20:31 11/23/20 08:21 Potassium Chloride Crtab 20 Meq Tabcr PO 12/19/20 20:30 20 meq QAM MEJIA Administration Past Medical History Medical History (Updated 11/24/20 @ 07:29 by Reagan Estrada MD) Abnormal cystoscopy Actinic keratosis Atrial fibrillation with rapid ventricular response (03/2020) Bacteremia Bilateral nephrolithiasis (2005) Bladder cancer (2016) Chronic kidney disease, stage 3 Elevated troponin Per cardiology note 08/05/20: (2) Elevated troponin: -mild elevation likely a supply demand mismatch and not coronary ischemia. 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 -did have elevated heart rate and low blood pressure while in the emergency room. GI bleed Gout Hearing loss Hematuria (2019) History of basal cell carcinoma (2017) Hypercholesteremia Male erectile disorder of organic origin Valvular heart disease Vitamin D deficiency Past Family History Family History Grandfather Cancer Past Surgical History Surgical History H/O pyloroplasty H/O shoulder surgery Hx laparoscopic cholecystectomy (08/06/20) Laparoscopic Cholecystectomy with Cholangiogram, Lysis of Adhesions Dr. Tone lewis 08/06/2020 S/P bladder tumor excision with fulguration (2016) S/P knee surgery Status post ORIF of fracture of ankle Social History Smoking Status: Never smoker tobacco type: cigars Hx Alcohol Use: No Alcohol type: hard liquor alcohol intake frequency: a few times a month Hx Substance Use: No substance use type: does not use Physical Exam Vital Signs Last Vital Signs Temp 36.4 C L 11/24/20 07:04 Pulse 82 11/24/20 07:04 Resp 18 11/24/20 07:04 BP 119/78 11/24/20 07:04 Pulse Ox 94 11/24/20 07:04 Testing Laboratory Results 11/24/20 05:27 11/24/20 05:27 PT 12.7 Seconds (9.0-12.0) H 11/19/20 11:37 INR 1.3 (0.9-1.1) H 11/19/20 11:37 APTT 30.2 Seconds (21.0-31.0) 11/19/20 11:37 Urine Color Dark Yellow 11/19/20 17:10 Urine Appearance Clear (Clear) 11/19/20 17:10 Urine pH 7.0 (4.5-7.5) 11/19/20 17:10 Ur Specific [place] 1.022 (1.000-1.030) 11/19/20 17:10 Urine Protein 1+ (Negative) H 11/19/20 17:10 Urine Glucose (UA) Negative (Negative) 11/19/20 17:10 Urine Ketones Negative (Negative) 11/19/20 17:10 Urine Nitrite Negative (Negative) 11/19/20 17:10 Ur Leukocyte Esterase Negative (Negative) 11/19/20 17:10 Urine WBC (Auto) 1-5 /hpf (0-5) 11/19/20 17:10 Urine RBC (Auto) 0-4 /hpf (0-4) 11/19/20 17:10 U Hyaline Cast (Auto) 0 /lpf (0-5) 11/19/20 17:10 U Epithel Cells (Auto) 5-10 /lpf (0-5) H 11/19/20 17:10 Urine Bacteria (Auto) Negative (Negative) 11/19/20 17:10 11/21/20 10:59 Aerobic Blood Culture - Preliminary Blood Staphylococcus aureus Anaerobic Blood Culture - Preliminary No growth in Anaerobic bottle after 48 hours. 11/21/20 10:50 Aerobic Blood Culture - Preliminary Blood Staphylococcus aureus Anaerobic Blood Culture - Preliminary No growth in Anaerobic bottle after 48 hours. 11/19/20 13:12 Aerobic Blood Culture - Final Blood Staphylococcus aureus Anaerobic Blood Culture - Final Staphylococcus aureus 11/19/20 11:27 Aerobic Blood Culture - Final Blood Staphylococcus aureus Anaerobic Blood Culture - Final Staphylococcus aureus
[2020-11-24] MEDS: PANTOprazole 40 MG TAB PO SCH (08:26)
[2020-11-24] MEDS: ceFAZolin 1000MG 1,000 MG/7.5 ML SYR IV SCH ×2 (08:26→17:05)
[2020-11-24] MEDS: FERROUS SULFATE 325 MG TAB PO SCH ×2 (08:26→21:57)
[2020-11-24] MEDS: METOPROLOL TARTRATE 25 MG TAB PO SCH ×2 (08:27→21:57)
[2020-11-24] MEDS: FLUoxetine HCL 10 MG CAP PO SCH (08:27)
[2020-11-24] MEDS: MIRTAZAPINE TAB 15 MG TAB PO SCH (08:27)
[2020-11-24] MEDS: APIXABAN 5 MG TABLET PO SCH ×2 (08:27→21:59)
[2020-11-24] MEDS: DOCUSATE SODIUM 100 MG CAP PO SCH ×2 (08:27→21:58)
[2020-11-24] MEDS: POTASSIUM CHLORIDE CRTAB 20 MEQ TABCR PO SCH (08:27)
[2020-11-24] MEDS: allopurinoL 300 MG TAB PO SCH (08:27)
[2020-11-24] MEDS: POLYETHYLENE (MIRALAX) 17 GM PACK PO SCH ×2 (08:28→21:57)
[2020-11-24] MEDS ORDERED: METOPROLOL TARTRATE 1 MG/ML VIAL IV PRN (18:07)
[2020-11-24] MEDS: FUROSEMIDE 40 MG TAB PO SCH (21:58)
[2020-11-25] MEDS: ceFAZolin 1000MG 1,000 MG/7.5 ML SYR IV SCH ×3 (00:27→16:43)
[2020-11-25 05:38] LABS: Basophils # (auto) 0.03 K/uL (0-0.2); Basophils % (auto) 0.4 %; Eosinophils % (auto) 1.2 %; Hematocrit (blood only) 37.2 % (42-52); Hemoglobin 12.3 g/dL (14.0-18.0); Immature Granulocytes % (auto) 1.2 %; Lymphocytes # (auto) 1.48 K/uL (1.2-3.4); Lymphocytes % (auto) 17.3 %; Mean Corpuscular Hemoglobin 35.3 pg (25-34); Mean Corpuscular Hgb Conc 33.1 g/dL (32-36); Mean Corpuscular Volume 106.9 fL (80-100); Mean Platelet Volume 11.7 fL (7.4-10.4); Monocytes # (auto) 0.61 K/uL (0.11-0.59); Monocytes % (auto) 7.1 %; Neutrophils # (auto) 6.25 K/uL (1.4-6.5); Neutrophils % (auto) 72.8 %; Platelet Count 145 K/uL (130-400); RDW Standard Deviation 66.1 fL (36.4-46.3); Red Blood Count 3.48 M/uL (4.7-6.1); White Blood Count 8.57 K/uL (4.8-10.8)
[2020-11-25 06:18] LABS: BUN Creatinine Ratio 26.1 (10-20); Creatinine Clr Calc Pharmacy 41.2 ml/min; Est GFR (African American) 59.8 ml/min; Est GFR (Non-African American) 51.6 ml/min; Potassium 4.3 mmol/L (3.5-5.1)
--- NOTE | 2020-11-25 06:44 | Hospitalist Progress Note ---
Date of Service November 25, 2020 Assessment & Plan (1) Bacteremia: Plan: 89-year-old males with a [id number] past medical history including A. fib on Eliquis, CHF, BPH with urinary obstruction, CKD 3, hypertension who was recently discharged from the hospital for acute on chronic diastolic CHF and lower extremity cellulitis presents from [facility] now presenting for evaluation of atrial fibrillation with rapid ventricular response. RVR resolved. Has bacteremia of unknown etiology. Stable Bacteremia Patient presenting with documented fever, 38 C in the ED. Blood cultures positive for staph aureus. KRYSTAL 11/20 negative for endocarditis. - Source unclear but includes sacral ulcer, possible diverticulitis given initial presentation of abdominal pain and evidence of diverticulosis (without signs of diverticulitis) on imaging, as well pneumonia given patient's new O2 requirement without evidence of fluid overload. His chest x-ray in the ED however was not suggestive. Repeat chest x-ray 11/21 also negative. Sacral ulcer is most probably source at this point. Spine XR 11/23 negative for signs of infectious process - Repeat blood culture 11/21 also positive staph aureus. Resistant to clinda and erythromycin. - Discontinued Vanco/ Zosyn and began Doxycycline IV 11/21 per initial blood culture sensitivities. After repeat blood cultures were positive, doxycycline was discontinued and daptomycin and ceftriaxone IV were begun 11/21. Discontinued daptomycin and ceftriaxone 11/23 and started IV Ancef per ID recommendations - ID consulted. Per 11/23 recs, recommended Ancef and KRYSTAL. Will repeat BC AM of 11/25. If KRYSTAL is unrevealing, and if repeat blood cultures remain positive after a day or two of ancef therapy, then a sacral MRI should be considered. - follow murmur clinically. - KRYSTAL will likely be performed on 11/26. - Will require 14 days of IV treatment from negative blood culture mild acute delirium versus mild cognitive impairment - may have component of hospital delirium - noticed on AM exam 11/24, but less noticeable during PM rounds - improved on 11/25 - monitor clinically sacral ulcer - per prior imaging exams, less likely source of bacteremia - as per above, will consider MRI sacrum if KRYSTAL negative Hemodynamic instability in the setting of Atrial fibrillation and history of CHF- RESOLVED Patient with a history of A. fib with RVR on chronic Eliquis previously rate controlled. Was in his usual state of health when he was noted to have a fever at the retirement, his vitals were assessed and he was noted to be in atrial fibrillation with RVR and he was referred to the hospital. Patient presented to the ER with a BP of 103/75, pulse of 116, and elevated respiratory rate of 27. EKG demonstrating A. fib with RVR. Curbsided cardio 11/19 who recommended 25mg metoprolol and gentle fluid bolus with careful monitoring for fluid overload. Converted to normal rhythm. - Resumed home metoprolol 11/20 -500 mL bolus 11/19, 250mL 11/20, 1 bag LR- monitoring for development of pulmonary edema. Now PO intake only -Continue apixaban -rate controlled but noted to be in atrial flutter. continue metoprolol 25 mg PO BID. PRN IV Lopressor 5 for sustained >120 HR. CHF Patient recently discharged from the hospital for acute on chronic CHF exacerbation complicated by cellulitis. Patient has been doing well as an outpatient. - No evidence of fluid overload on exam - Monitor fluid status with repeat exams - If respiratory status declines chest x-ray and diuretics - 11/21 chest XR showed some increased congestion - Cr elevated- continue monitoring - Cumulative I/O incomplete; 7.6L in 2.2L out - Provided home does of furosemide (PO 40mg=20mg IV) IV on 11/22 -Cardiology recommends home dose furosemide 40mg every other day or a weight based diuretic scale -Continue home dose PO lasix 40 every other day starting 11/24 -Continue Klor-Con 20meq daily - 11/25 lungs clear, but LE edema worsened. provided dose of IV lasix 20mg Poor PO intake Patient noted to have elevated Cr. 11/21 after being switch from fluids to PO intake. Patient has poor oral intake. - Nutrition consulted - Continue mirtazapine 15 mg Suspected demand ischemia On admission troponin minimally elevated, but patient has evidence of chronical ly elevated troponin. Suspect demand ischemia secondary to CHF. - troponin has since peaked at 1.66 on 11/20 Hypertension History of, holding home antihypertensive given hemodynamic instability. acute kidney disease on chronic kidney disease stage III Baseline creatinine 1.2, worsened to 1.58 during this admission, since resolved to 1.29 -Trend daily BMP -Avoid nephrotoxins Anxiety and depression -Continue fluoxetine 10 mg daily - No suicidal ideation or plan. Patient does not require q15 minute checks. GERD - Continue as esomeprazole FENa: Heart healthy, low sodium. NPO after midnight. will continue home meds including Eliquis Code Status: Full code DVT PPX: On Eliquis Dispo: PCU. OT recommends SNF. PT recommends PCF. dispo on hold, waiting on KRYSTAL to be performed on 11/26/20 (2) Atrial fibrillation with rapid ventricular response: (3) Diastolic CHF: (4) Chronic kidney disease, stage 3: (5) Hypertension: (6) GERD (gastroesophageal reflux disease): (7) Anxiety and depression: Admission and Anticipated Discharge Date Admission Date: November 19, 2020 Supervising Physician Co-Signing Physician Notes I also saw the patient concurrent with the resident physician and confirmed bradshaw portions of the history and physical examination. I agree with the impression and plan as noted in the documentation. Patient is without complaints this morning. Exam 106/72, 69, 18, 36.4, 95% on room air Pleasant. Alert. No acute distress. HEENT unremarkable. Heart seems regular upon auscultation (although rate controlled A. fib/a flutter on monitor). 2/6 holosystolic murmur at apex. Trace lower extremity edema, Slightly more edema today compared to yesterday Data Hemoglobin 12.3, platelet count 145 BUN 32, creatinine 1.24 Blood cultures dated 11/21/2020 shows Staph aureus in 2/2 bottles Blood cultures dated 11/19/2020 shows staph aureus in 2/2 bottles Blood cultures drawn this morning (11/25/2020) Impression and plan Persistent staph aureus bacteremia, source uncertain Infectious disease consulted Ancef 1 g every 8 hours Given persistent bacteremia, agree with transesophageal echocardiogram N.p.o. after midnight Patient was recultured this morning Sacral wound Imaging (X-ray)not overly concerning for osteomyelitis If no source identified, consider MRI if KRYSTAL Continue antibiotics Atrial fibrillation with rapid ventricular response, resolved Good rate control now Continue apixaban, although may need to adjust dose if renal function does not return to baseline Congestive heart failure Improved with diuresis Have returned to his home Lasix dose (40 mg every other day). 20 mg extra dose added today given increased pedal edema Monitor output and renal function Subjective Patient feels well. No new complaints. Overall, unchanged from yesterday. Review of Systems Review of Systems: Constitutional: Denies fever, chills Eyes: Denies blurry vision, vision changes Cardiovascular: Denies chest pain Respiratory: Denies shortness of breath Gastrointestinal: Denies abdominal pain, nausea, vomiting, constipation, diarrhea Genitourinary: Denies urinary symptoms including dysuria Musculoskeletal: Denies weakness, muscle aches/pain, joint aches/pain Neurological: Denies headache, numbness, tingling, focal weakness Physical Exam Physical Exam: General: NAD. Cooperative. A&Ox3 to person, place, and time, does not know reason for hospitalization. Good energy level today. HEENT: Atraumatic, normocephalic. Pulm: CTAB. -wheezes, -rales, -rhonchi. No respiratory distress. Cardiac: RRR, 3/6 systolic blowing murmur at apex, not heard at aortic region today. Bilateral 2-3+ LE edema. Abdominal: Nontender, nondistended, soft. Results & Data Results & Data ([facility]) Vital Signs (Past 12 Hours) Vital Signs Temp Pulse Resp BP BP Pulse Ox 11/25/20 03:45 36.9 C 88 16 109/74 96 11/24/20 22:02 74 129/81 11/24/20 19:34 36.8 C 78 19 101/79 97 Laboratory Results wbc 7.3->8.57. Hb stable 12.3. bmp wnl. ca 8.0. corrected ca 8.4. BC pending Resident Activity Tracking Resident Involvement: Resident Care Provided Care Provided: Adult Hospital Medicine (1) Chronic kidney disease, stage 3 Chronic kidney disease stage 3 subtype: stage 3b (GFR 30-44) Qualified Code(s): N18.32 - Chronic kidney disease, stage 3b
[2020-11-25] MEDS: APIXABAN 5 MG TABLET PO SCH ×2 (08:30→21:07)
[2020-11-25] MEDS: METOPROLOL TARTRATE 25 MG TAB PO SCH ×2 (08:30→21:06)
[2020-11-25] MEDS: DOCUSATE SODIUM 100 MG CAP PO SCH ×2 (08:30→21:06)
[2020-11-25] MEDS: FERROUS SULFATE 325 MG TAB PO SCH ×2 (08:30→21:06)
[2020-11-25] MEDS: PANTOprazole 40 MG TAB PO SCH (08:31)
[2020-11-25] MEDS: FLUoxetine HCL 10 MG CAP PO SCH (08:31)
[2020-11-25] MEDS: POTASSIUM CHLORIDE CRTAB 20 MEQ TABCR PO SCH (08:31)
[2020-11-25] MEDS: allopurinoL 300 MG TAB PO SCH (08:31)
[2020-11-25] MEDS: MIRTAZAPINE TAB 15 MG TAB PO SCH (08:31)
[2020-11-25] MEDS: POLYETHYLENE (MIRALAX) 17 GM PACK PO SCH ×2 (08:31→21:05)
[2020-11-25] MEDS ORDERED: FUROSEMIDE 20 MG in SYRINGE 0 ML IV ONE (10:23)
[2020-11-25] MEDS ORDERED: FUROSEMIDE 40 MG/4 ML VIAL IV ONE (10:30)
[2020-11-26] MEDS: ceFAZolin 1000MG 1,000 MG/7.5 ML SYR IV SCH ×2 (00:02→09:03)
--- NOTE | 2020-11-26 06:44 | Hospitalist Progress Note ---
Date of Service November 26, 2020 Assessment & Plan (1) Bacteremia: Plan: 89-year-old male with a complex past medical history including A. fib on Eliquis, CHF, BPH with urinary obstruction, CKD3, hypertension who was recently discharged from the hospital for acute on chronic diastolic CHF and lower extremity cellulitis presents from [facility] now presenting for evaluation of atrial fibrillation with rapid ventricular response. RVR resolved. Has bacteremia of unknown source. Bacteremia Patient p/w fever in ED, confusion; blood culture positive for S. aureus, TTE (11/20) without sign of endocarditis; patient started on vanc/zosyn Source unclear, differential includes endocarditis, diverticulitis (LLQ tenderness on admission though resolved), sacral ulcer (XR spine negative for signs of infection 11/23) Repeat blood cultures (11/21) positive for S. aureus resistant to clindamycin and erythromycin (same as original blood culture results) Vanc/zosyn discontinued (11/21) and doxycycline IV started, which was then discontinued (same day) and dapto/ceftriaxone IV started (11/21) ID consulted (11/23), recommended ancef IV and KRYSTAL; however, cardiology not comfortable performing KRYSTAL on patient with his comorbidities Discussed again with ID (11/26); given inability to perform KRYSTAL, ID recommends ancef IV for six weeks total Continue IV ancef - dosing per pharmacy Blood culture repeated 11/25; no growth at 24h Sacral ulcer Continue wound care A. fib with RVR Tachycardic on admission, cardiology informally recommended 25mg metoprolol and gentle fluid bolus Rate controlled since Continue eliquis Continue metoprolol 25mg PO bid, IV lopressor 5mg for HR > 120 CHF Patient recently discharged from hospital for [id number] CHF exacerbation complicated by cellulitis On admission, no evidence of fluid overload Cardiology recommends home dose furosemide (40mg) every other day or a weight- based diuretic scale Continue KCl 20mEq daily 11/25: LE edema worsened; provided lasix IV 20mg one-time dose Poor PO intake Nutrition consulted Continue mirtazapine 15mg PO qd Elevated troponin Patient with minimally-elevated troponin on admission in setting of chronic elevation Troponin peaked at 1.66 on 11/20; suspected secondary to demand ischemia No further monitoring indicated Hypertension Home regimen held on admission given hemodynamic instability Continue metoprolol as above LASHAWN on CKD Creatinine elevated on admission to 1.58 (baseline 1.2), has since resolved Trend daily BMP, avoid nephrotoxins Anxiety and depression Continue fluoxetine 10mg daily Some concern was raised related suicidal ideation; this has not been evident during this hospitalization Patient does not need q15 minute checks upon discharge from hospital GERD Continue home esomeprazole FEN: heart healthy, low sodium Code status: full code DVT ppx: eliquis Isolation: none Consults: ID Dispo: med/surg (2) Atrial fibrillation with rapid ventricular response: (3) Diastolic CHF: (4) Chronic kidney disease, stage 3: (5) Hypertension: (6) GERD (gastroesophageal reflux disease): (7) Anxiety and depression: Admission and Anticipated Discharge Date Admission Date: November 19, 2020 Supervising Physician Co-Signing Physician Notes I personally examined the patient and verified all bradshaw points of history and exam, discussed case, and agree with decision making with Dr Cox Resting comfortably whenever I see him. Apparently was rather agitated and confused earlier. Vitals noted, no distress. HEENT normocephalic atraumatic mucous membranes moist. Breathing unlabored no accessory muscle use good effort. Skin shows no rash no pallor or icterus. No focal neuro deficits at rest. MSSA bacteremiaunable to get TEEin discussions with infectious disease we will treat for 6 weeks. Working on discharge planning Sacral ulcerlocal wound care. Otherwise as above Subjective Patient seen and evaluated at bedside this morning. No acute events overnight. This morning, patient is irritated because his breakfast has not arrived yet; I let him know it's on the way. Patient is oriented to person and place but not to time or situation. Patient had just urinated on the floor. Patient denies CP, SOB, abdominal pain, nausea, vomiting, lightheadedness, dizziness, back pain, weakness, diarrhea, or other symptoms. Review of Systems Review of Systems: See HPI Physical Exam Physical Exam: Constitutional: well-appearing, irritated but no acute distress CV: regular rhythm, no murmur appreciated, extremities well-perfused Resp: CTABL, no wheezes/rales/rhonchi appreciated, no increased work of breathing Skin: warm, dry, no rash appreciated Neuro: alert, oriented to person and place only, no focal deficits appreciated Results & Data Results & Data ([facility]) Vital Signs (Past 12 Hours) Vital Signs Temp Pulse Resp BP Pulse Ox 11/26/20 03:10 36.5 C 77 18 110/76 95 11/25/20 22:32 36.6 C 76 16 119/84 97 11/25/20 19:46 36.5 C 77 18 115/78 94 (1) Chronic kidney disease, stage 3 Chronic kidney disease stage 3 subtype: stage 3b (GFR 30-44) Qualified Code(s): N18.32 - Chronic kidney disease, stage 3b
[2020-11-26 07:01] LABS: Basophils # (auto) 0.02 K/uL (0-0.2); Basophils % (auto) 0.2 %; Eosinophils # (auto) 0.13 K/uL (0-0.5); Eosinophils % (auto) 1.5 %; Hemoglobin 12.7 g/dL (14.0-18.0); Immature Granulocytes # (auto) 0.14 K/uL (0.00-0.02); Immature Granulocytes % (auto) 1.6 %; Lymphocytes # (auto) 1.87 K/uL (1.2-3.4); Mean Corpuscular Hgb Conc 33.4 g/dL (32-36); Mean Corpuscular Volume 104.7 fL (80-100); Mean Platelet Volume 10.6 fL (7.4-10.4); Monocytes % (auto) 6.7 %; Neutrophils # (auto) 6.13 K/uL (1.4-6.5); Platelet Count 151 K/uL (130-400); RDW Coefficient of Variation 16.7 % (11.5-14.5); RDW Standard Deviation 63.8 fL (36.4-46.3); Red Blood Count 3.63 M/uL (4.7-6.1); White Blood Count 8.89 K/uL (4.8-10.8)
[2020-11-26 07:34] LABS: BUN Creatinine Ratio 24.9 (10-20); Calcium 8.4 mg/dl (8.5-10.1); Creatinine Clr Calc Pharmacy 38.4 ml/min; Est GFR (African American) 54.9 ml/min; Est GFR (Non-African American) 47.4 ml/min; Potassium 4.2 mmol/L (3.5-5.1)
[2020-11-26] MEDS: FERROUS SULFATE 325 MG TAB PO SCH ×2 (08:07→21:03)
[2020-11-26] MEDS: DOCUSATE SODIUM 100 MG CAP PO SCH ×2 (08:07→21:03)
[2020-11-26] MEDS: APIXABAN 5 MG TABLET PO SCH ×2 (08:07→21:03)
[2020-11-26] MEDS: METOPROLOL TARTRATE 25 MG TAB PO SCH ×2 (08:07→21:06)
[2020-11-26] MEDS: MIRTAZAPINE TAB 15 MG TAB PO SCH (08:08)
[2020-11-26] MEDS: FLUoxetine HCL 10 MG CAP PO SCH (08:08)
[2020-11-26] MEDS: allopurinoL 300 MG TAB PO SCH (08:08)
[2020-11-26] MEDS: FUROSEMIDE 40 MG TAB PO SCH (08:08)
[2020-11-26] MEDS: PANTOprazole 40 MG TAB PO SCH (08:08)
[2020-11-26] MEDS: POTASSIUM CHLORIDE CRTAB 20 MEQ TABCR PO SCH (08:08)
[2020-11-26] MEDS: POLYETHYLENE (MIRALAX) 17 GM PACK PO SCH ×2 (08:10→21:02)
[2020-11-26] MEDS: ceFAZolin 2000MG 2,000 MG/15 ML SYR IV SCH (16:47)
--- NOTE | 2020-11-26 17:39 | Billing Data ---
Date of Service November 26, 2020 Coding Level of Care Code 56186 Subseq Hosp Care Lvl 2
[2020-11-26] MEDS: ACETAMINOPHEN 500 MG TAB PO PRN (21:14)
[2020-11-27] MEDS: ceFAZolin 2000MG 2,000 MG/15 ML SYR IV SCH ×4 (00:41→23:03)
[2020-11-27 07:24] LABS: Basophils # (auto) 0.02 K/uL (0-0.2); Basophils % (auto) 0.3 %; Eosinophils # (auto) 0.15 K/uL (0-0.5); Hemoglobin 11.5 g/dL (14.0-18.0); Immature Granulocytes # (auto) 0.19 K/uL (0.00-0.02); Immature Granulocytes % (auto) 2.5 %; Lymphocytes # (auto) 1.73 K/uL (1.2-3.4); Lymphocytes % (auto) 22.6 %; Mean Corpuscular Hemoglobin 34.3 pg (25-34); Mean Corpuscular Hgb Conc 32.9 g/dL (32-36); Mean Corpuscular Volume 104.5 fL (80-100); Mean Platelet Volume 10.5 fL (7.4-10.4); Monocytes # (auto) 0.58 K/uL (0.11-0.59); Monocytes % (auto) 7.6 %; Neutrophils # (auto) 4.98 K/uL (1.4-6.5); Platelet Count 156 K/uL (130-400); RDW Coefficient of Variation 16.7 % (11.5-14.5); RDW Standard Deviation 62.8 fL (36.4-46.3); Red Blood Count 3.35 M/uL (4.7-6.1); White Blood Count 7.65 K/uL (4.8-10.8)
[2020-11-27 07:54] LABS: BUN Creatinine Ratio 29.5 (10-20); Calcium 8.1 mg/dl (8.5-10.1); Est GFR (African American) 55.9 ml/min; Est GFR (Non-African American) 48.3 ml/min
[2020-11-27] MEDS: DOCUSATE SODIUM 100 MG CAP PO SCH ×2 (08:20→20:22)
[2020-11-27] MEDS: APIXABAN 5 MG TABLET PO SCH ×2 (08:20→20:22)
[2020-11-27] MEDS: allopurinoL 300 MG TAB PO SCH (08:20)
[2020-11-27] MEDS: FERROUS SULFATE 325 MG TAB PO SCH ×2 (08:21→20:22)
[2020-11-27] MEDS: FLUoxetine HCL 10 MG CAP PO SCH (08:21)
[2020-11-27] MEDS: PANTOprazole 40 MG TAB PO SCH (08:21)
[2020-11-27] MEDS: MIRTAZAPINE TAB 15 MG TAB PO SCH (08:21)
[2020-11-27] MEDS: POLYETHYLENE (MIRALAX) 17 GM PACK PO SCH ×2 (08:23→20:22)
[2020-11-27] MEDS: POTASSIUM CHLORIDE CRTAB 20 MEQ TABCR PO SCH (08:23)
[2020-11-27] MEDS: METOPROLOL TARTRATE 25 MG TAB PO SCH ×2 (08:36→20:22)
--- NOTE | 2020-11-27 09:23 | Hospitalist Progress Note ---
Date of Service November 27, 2020 Assessment & Plan (1) Bacteremia: Plan: 89-year-old male with a complex past medical history including A. fib on Eliquis, CHF, BPH with urinary obstruction, CKD3, hypertension who was recently discharged from the hospital for acute on chronic diastolic CHF and lower extremity cellulitis presents from [facility] now presenting for evaluation of atrial fibrillation with rapid ventricular response. RVR resolved. Has bacteremia of unknown source. Bacteremia Patient p/w fever in ED, confusion; blood culture positive for S. aureus, TTE (11/20) without sign of endocarditis; patient started on vanc/zosyn Source unclear, differential includes endocarditis, diverticulitis (LLQ tenderness on admission though resolved), sacral ulcer (XR spine negative for signs of infection 11/23) Repeat blood cultures (11/21) positive for S. aureus resistant to clindamycin and erythromycin (same as original blood culture results) Vanc/zosyn discontinued (11/21) and doxycycline IV started, which was then discontinued (same day) and dapto/ceftriaxone IV started (11/21) ID consulted (11/23), recommended ancef IV and KRYSTAL; however, cardiology not comfortable performing KRYSTAL on patient with his comorbidities Discussed again with ID (11/26); given inability to perform KRYSTAL, ID recommends ancef IV for six weeks total Continue IV ancef - dosing per pharmacy Blood culture repeated 11/25; ng to date Working with CM to find a facility for patient to continue IV antibiotic treatment Sacral ulcer Continue wound care A. fib with RVR Tachycardic on admission, cardiology informally recommended 25mg metoprolol and gentle fluid bolus Rate controlled since Continue eliquis Continue metoprolol 25mg PO bid, IV lopressor 5mg for HR > 120 CHF Patient recently discharged from hospital for [id number] CHF exacerbation complicated by cellulitis On admission, no evidence of fluid overload Cardiology recommends home dose furosemide (40mg) every other day or a weight- based diuretic scale Continue KCl 20mEq daily 11/25: LE edema worsened; provided lasix IV 20mg one-time dose Poor PO intake Nutrition consulted Continue mirtazapine 15mg PO qd Elevated troponin Patient with minimally-elevated troponin on admission in setting of chronic elevation Troponin peaked at 1.66 on 11/20; suspected secondary to demand ischemia No further monitoring indicated Hypertension Home regimen held on admission given hemodynamic instability Continue metoprolol as above Close monitoring given soft pressures (11/27) LASHAWN on CKD Creatinine elevated on admission to 1.58 (baseline 1.2), has since resolved Trend daily BMP, avoid nephrotoxins Anxiety and depression Continue fluoxetine 10mg daily Some concern was raised related suicidal ideation; this has not been evident during this hospitalization Patient does not need q15 minute checks upon discharge from hospital GERD Continue home esomeprazole FEN: heart healthy, low sodium Code status: full code DVT ppx: eliquis Isolation: none Consults: ID Dispo: med/surg (2) Atrial fibrillation with rapid ventricular response: (3) Diastolic CHF: (4) Chronic kidney disease, stage 3: (5) Hypertension: (6) GERD (gastroesophageal reflux disease): (7) Anxiety and depression: Admission and Anticipated Discharge Date Admission Date: November 19, 2020 Supervising Physician Co-Signing Physician Notes I personally examined the patient and verified all bradshaw points of history and exam, discussed case, and agree with decision making with Dr Cox No complaints. Still awaiting disposition planning. Updated on the medical portion of the plan. Vitals noted, no distress. HEENT normocephalic atraumatic mucous membranes moist. Breathing unlabored no accessory muscle use good effort. Skin shows no rash no pallor or icterus. No focal neuro deficits at rest. MSSA bacteremiaunable to get TEEin resident discussions with infectious disease we will treat for 6 weeks. Working on discharge planningCase management working together with family Sacral ulcerlocal wound care. Otherwise as above, stable for [facility] Subjective Patient seen and evaluated at bedside this morning. No acute events overnight. Feels well this morning. AOx4. Denies fever, chills, CP, SOB, nausea, vomiting, weakness. Tolerating breakfast well. Understands that we're now looking for a facility for him to continue his IV antibiotic treatment. No new concerns today. Review of Systems Review of Systems: See HPI Physical Exam Physical Exam: Constitutional: well-appearing, irritated but no acute distress CV: regular rhythm, no murmur appreciated, extremities well-perfused Resp: CTABL, no wheezes/rales/rhonchi appreciated, no increased work of breathing Skin: warm, dry, no rash appreciated Neuro: AOx4, no focal deficits appreciated Results & Data Results & Data ([facility]) Vital Signs (Past 12 Hours) Vital Signs Temp Pulse Pulse Resp BP BP Pulse Ox 11/27/20 07:26 36.5 C 79 19 89/57 L 94 11/27/20 04:33 36.5 C 75 18 102/67 91 11/26/20 23:42 79 11/26/20 23:17 36.6 C 74 18 103/70 95 (1) Chronic kidney disease, stage 3 Chronic kidney disease stage 3 subtype: stage 3b (GFR 30-44) Qualified Code(s): N18.32 - Chronic kidney disease, stage 3b
--- NOTE | 2020-11-27 09:40 | Cardiology Progress Note ---
Date of Service November 27, 2020 Assessment & Plan (1) Atrial flutter: Plan: Although his rhythm is still most likely atrial flutter, his rate has been controlled for some time now on low-dose metoprolol (metoprolol tartrate 25 mg twice daily). Would hold single dose of metoprolol for systolic blood pressure less than 90 mmHg, but would administer for any asymptomatic BP higher than this. If he has recurrent hypotension, may need to reduce metoprolol dosing. Continue apixaban for antithrombotic prophylaxis. (2) Acute on chronic diastolic CHF (congestive heart failure): Plan: Volume status appears reasonable on every other day furosemide 40 mg. Continue to monitor daily weight. (3) Bacteremia: Plan: Discussed with Dr. Mosquera, we both would be reluctant to perform transesophageal echocardiogram in an elderly patient with mental status issues, particularly since it would be unlikely to regional climate change analyst. Would recommend continuing an extended course of antibiotics as recommended by infectious disease, KRYSTAL findings would not change this. Transesophageal echo is most helpful for recurrent emboli, valve ring infection, or other major pathologies which might require surgical intervention. This patient is not a candidate for major cardiac surgery, therefore the utility of KRYSTAL is low. (4) Chronic kidney disease, stage 3: Plan: Renal function at baseline. (5) At risk for change in mental status: Plan: Etiology for his change in mental status in recent months is unclear, his personality is quite different than it was 6 months ago. Admission and Anticipated Discharge Date Admission Date: November 19, 2020 Subjective Awake and alert, seems generally oriented. Had been difficult with nurses at times. He denies any complaints. No chest pain, dyspnea, subjective palpitations. He did not complain even of his usual arthralgias (ankle and feet). Telemetry and ECG are still most consistent with atrial flutter with 4:1 block, rate 76 bpm. Of note, this has been misinterpreted as sinus in the past. Physical Exam Physical Exam: No distress. Weight up 4 pounds from admission. Output greater than input by 500 cc. Mild, asymptomatic hypotension (89/57 mmHg). Pulse 76 bpm and generally regular. Skin: no ecchymoses or generalized lesions. HEENT: unremarkable. Neck: Jugular venous pulse one quarter the way to the angle of the jaw at 90 degrees, no carotid bruits. Lungs: Mildly decreased breath sounds but clear. No accessory muscle use. Cardiac: regular rhythm, 2/6 apical holosystolic murmur, no diastolic murmur or gallop. Abdomen: benign. Extremities: No edema. Neurologic: Answers simple questions appropriately, alert but with limited insight, grossly nonfocal. Results & Data ([facility]) Vital Signs (Past 12 Hours) Vital Signs Temp Pulse Pulse Resp BP BP Pulse Ox 11/27/20 07:26 97.7 F 79 19 89/57 L 94 11/27/20 04:33 97.7 F 75 18 102/67 91 11/26/20 23:42 79 11/26/20 23:17 97.9 F 74 18 103/70 95 Laboratory Results Hemoglobin 11.5 with normal white count. Normal electrolytes, BUN 39, creatinine 1.31. Diagnostic Findings Given his history, ECG is most consistent with atrial flutter with 4-1 block (very small flutter waves can be seen in lead V2). PG Care Time/CCT Total # of Minutes Spent Total Time Spent with Patient: Total time spent is greater than 50% in coordination of care (as documented) at patient's floor/unit and/or counseling patient: Coding Level of Care Code 95921 Subseq Hosp Care Lvl 3 Diagnoses Atrial flutter I48.92 Acute on chronic diastolic CHF (congestive heart failure) I50.33 Chronic kidney disease, stage 3 N18.32 Chronic kidney disease stage 3 subtype: stage 3b (GFR 30-44) At risk for change in mental status Z91.89 Bacteremia R78.81 (1) Chronic kidney disease, stage 3 Chronic kidney disease stage 3 subtype: stage 3b (GFR 30-44) Qualified Code(s): N18.32 - Chronic kidney disease, stage 3b
--- NOTE | 2020-11-27 15:47 | Electrocardiogram Report ---
Test Reason : Blood Pressure : / mmHG Vent. Rate : 076 BPM Atrial Rate : 375 BPM P-R Int : 000 ms QRS Dur : 090 ms QT Int : 340 ms P-R-T Axes : 000 -65 -15 degrees QTc Int : 382 ms Probable Sinus rhythm Left axis deviation Septal infarct , age undetermined Inferior infarct , age undetermined Abnormal ECG When compared with ECG of 27-NOV-2020 07:35, (unconfirmed) No significant change was found Confirmed by Gary Mosquera ([id number]) on 11/27/2020 3:46:40 PM Referred By: REFERRED SELF Confirmed By:Gary oMsquera
--- NOTE | 2020-11-27 19:35 | Billing Data ---
Date of Service November 27, 2020 Coding Level of Care Code 46276 Subseq Hosp Care Lvl 2
[2020-11-28 07:20] LABS: Basophils # (auto) 0.03 K/uL (0-0.2); Basophils % (auto) 0.4 %; Eosinophils # (auto) 0.08 K/uL (0-0.5); Eosinophils % (auto) 1.1 %; Hematocrit (blood only) 33.9 % (42-52); Hemoglobin 11.3 g/dL (14.0-18.0); Immature Granulocytes # (auto) 0.22 K/uL (0.00-0.02); Immature Granulocytes % (auto) 3.1 %; Lymphocytes # (auto) 1.54 K/uL (1.2-3.4); Lymphocytes % (auto) 21.8 %; Mean Corpuscular Hgb Conc 33.3 g/dL (32-36); Mean Platelet Volume 10.6 fL (7.4-10.4); Monocytes # (auto) 0.43 K/uL (0.11-0.59); Monocytes % (auto) 6.1 %; Neutrophils # (auto) 4.75 K/uL (1.4-6.5); Neutrophils % (auto) 67.5 %; Platelet Count 182 K/uL (130-400); RDW Coefficient of Variation 16.7 % (11.5-14.5); RDW Standard Deviation 62.9 fL (36.4-46.3); Red Blood Count 3.23 M/uL (4.7-6.1); White Blood Count 7.05 K/uL (4.8-10.8)
[2020-11-28] MEDS: PANTOprazole 40 MG TAB PO SCH (07:32)
[2020-11-28] MEDS: ceFAZolin 2000MG 2,000 MG/15 ML SYR IV SCH ×2 (07:32→15:45)
[2020-11-28] MEDS: POTASSIUM CHLORIDE CRTAB 20 MEQ TABCR PO SCH (07:32)
[2020-11-28] MEDS: FERROUS SULFATE 325 MG TAB PO SCH ×2 (07:32→21:52)
[2020-11-28] MEDS: POLYETHYLENE (MIRALAX) 17 GM PACK PO SCH ×2 (07:32→21:50)
[2020-11-28] MEDS: FUROSEMIDE 40 MG TAB PO SCH (07:32)
[2020-11-28] MEDS: allopurinoL 300 MG TAB PO SCH (07:33)
[2020-11-28] MEDS: APIXABAN 5 MG TABLET PO SCH ×2 (07:33→21:52)
[2020-11-28] MEDS: DOCUSATE SODIUM 100 MG CAP PO SCH ×2 (07:33→21:52)
[2020-11-28] MEDS: METOPROLOL TARTRATE 25 MG TAB PO SCH ×2 (07:33→21:52)
[2020-11-28] MEDS: FLUoxetine HCL 10 MG CAP PO SCH (07:33)
[2020-11-28] MEDS: MIRTAZAPINE TAB 15 MG TAB PO SCH (07:33)
[2020-11-28 07:50] LABS: BUN Creatinine Ratio 24.5 (10-20); Calcium 8.4 mg/dl (8.5-10.1); Creatinine Clr Calc Pharmacy 36.2 ml/min; Est GFR (African American) 51.2 ml/min; Est GFR (Non-African American) 44.2 ml/min
--- NOTE | 2020-11-28 07:53 | Hospitalist Progress Note ---
Date of Service November 28, 2020 Assessment & Plan (1) Bacteremia: Plan: 89-year-old male with a complex past medical history including A. fib on Eliquis, CHF, BPH with urinary obstruction, CKD3, hypertension who was recently discharged from the hospital for acute on chronic diastolic CHF and lower extremity cellulitis presents from [facility] now presenting for evaluation of atrial fibrillation with rapid ventricular response. RVR resolved. Currently being treated for bacteremia of unclear source. Bacteremia Patient p/w fever in ED, confusion; blood culture positive for S. aureus, TTE (11/20) without sign of endocarditis; patient started on vanc/zosyn Source unclear, differential includes endocarditis, diverticulitis (LLQ tenderness on admission though resolved), sacral ulcer (XR spine negative for signs of infection 11/23) Repeat blood cultures (11/21) positive for S. aureus resistant to clindamycin and erythromycin (same as original blood culture results) Vanc/zosyn discontinued (11/21) and doxycycline IV started, which was then discontinued (same day) and dapto/ceftriaxone IV started (11/21) ID consulted (11/23), recommended ancef IV and KRYSTAL; however, cardiology not comfortable performing KRYSTAL on patient with his comorbidities Discussed again with ID (11/26); given inability to perform KRYSTAL, ID recommends ancef IV for six weeks total Continue IV ancef - dosing per pharmacy Blood culture repeated 11/25; ng to date Working with CM to find a facility for patient to continue IV antibiotic treatment Sacral ulcer Continue wound care A. fib with RVR Tachycardic on admission, cardiology informally recommended 25mg metoprolol and gentle fluid bolus Rate controlled since Continue eliquis Continue metoprolol 25mg PO bid, IV lopressor 5mg for HR > 120 CHF Patient recently discharged from hospital for [id number] CHF exacerbation complicated by cellulitis On admission, no evidence of fluid overload Cardiology recommends home dose furosemide (40mg) every other day or a weight- based diuretic scale Continue KCl 20mEq daily Poor PO intake Nutrition consulted Continue mirtazapine 15mg PO qd Elevated troponin Patient with minimally-elevated troponin on admission in setting of chronic elevation Troponin peaked at 1.66 on 11/20; suspected secondary to demand ischemia No further monitoring indicated Hypertension Home regimen held on admission given hemodynamic instability Continue metoprolol as above Close monitoring given soft pressures (11/27) LASHAWN on CKD Creatinine elevated on admission to 1.58 (baseline 1.2), has since resolved Trend daily BMP, avoid nephrotoxins Anxiety and depression Continue fluoxetine 10mg daily Some concern was raised related suicidal ideation; this has not been evident during this hospitalization Patient does not need q15 minute checks upon discharge from hospital GERD Continue home esomeprazole FEN: heart healthy, low sodium Code status: full code DVT ppx: eliquis Isolation: none Consults: ID Dispo: med/surg (2) Atrial fibrillation with rapid ventricular response: (3) Diastolic CHF: (4) Chronic kidney disease, stage 3: (5) Hypertension: (6) GERD (gastroesophageal reflux disease): (7) Anxiety and depression: Admission and Anticipated Discharge Date Admission Date: November 19, 2020 Subjective Patient seen and evaluated at bedside this morning. No acute events overnight. Patient feels well this morning and has no complaints. Patient denies CP, SOB, abdominal pain, nausea, vomiting, lightheadedness, dizziness, back pain, weakness, dysuria, diarrhea, or other symptoms. Review of Systems Review of Systems: See HPI Physical Exam Physical Exam: Constitutional: well-appearing, comfortable, no acute distress CV: regular rhythm, no murmur appreciated, extremities well-perfused, minimal LE edema BL Resp: CTABL, no wheezes/rales/rhonchi appreciated, no increased work of breathing Skin: warm, dry, no rash appreciated Neuro: AOx4, no focal deficits appreciated Results & Data Results & Data ([facility]) Vital Signs (Past 12 Hours) Vital Signs Temp Pulse Resp BP Pulse Ox 11/28/20 07:20 36.6 C 75 18 118/83 95 11/28/20 03:34 36.7 C 83 18 117/69 94 11/27/20 23:14 36.5 C 93 H 20 107/71 91 (1) Chronic kidney disease, stage 3 Chronic kidney disease stage 3 subtype: stage 3b (GFR 30-44) Qualified Code(s): N18.32 - Chronic kidney disease, stage 3b
--- NOTE | 2020-11-28 19:02 | Billing Data ---
Date of Service November 28, 2020 Coding Level of Care Code 02963 Subseq Hosp Care Lvl 2
[2020-11-28] MEDS: ACETAMINOPHEN 500 MG TAB PO PRN (22:02)
[2020-11-29] MEDS: ceFAZolin 2000MG 2,000 MG/15 ML SYR IV SCH ×4 (00:41→23:41)
[2020-11-29] MEDS ORDERED: traMADol HCL 50 MG TABLET PO STA (00:46)
[2020-11-29 08:34] LABS: Basophils # (auto) 0.02 K/uL (0-0.2); Basophils % (auto) 0.3 %; Eosinophils # (auto) 0.11 K/uL (0-0.5); Eosinophils % (auto) 1.7 %; Hematocrit (blood only) 36.7 % (42-52); Immature Granulocytes # (auto) 0.17 K/uL (0.00-0.02); Immature Granulocytes % (auto) 2.6 %; Lymphocytes # (auto) 1.37 K/uL (1.2-3.4); Lymphocytes % (auto) 20.6 %; Mean Corpuscular Hemoglobin 34.9 pg (25-34); Mean Corpuscular Hgb Conc 32.7 g/dL (32-36); Mean Corpuscular Volume 106.7 fL (80-100); Mean Platelet Volume 10.1 fL (7.4-10.4); Monocytes # (auto) 0.61 K/uL (0.11-0.59); Monocytes % (auto) 9.2 %; Neutrophils # (auto) 4.37 K/uL (1.4-6.5); Neutrophils % (auto) 65.6 %; Platelet Count 191 K/uL (130-400); RDW Coefficient of Variation 17.1 % (11.5-14.5); RDW Standard Deviation 65.7 fL (36.4-46.3); Red Blood Count 3.44 M/uL (4.7-6.1); White Blood Count 6.65 K/uL (4.8-10.8)
[2020-11-29] MEDS: FERROUS SULFATE 325 MG TAB PO SCH ×2 (08:39→20:15)
[2020-11-29] MEDS: PANTOprazole 40 MG TAB PO SCH (08:39)
[2020-11-29] MEDS: FLUoxetine HCL 10 MG CAP PO SCH (08:40)
[2020-11-29] MEDS: METOPROLOL TARTRATE 25 MG TAB PO SCH ×2 (08:40→20:15)
[2020-11-29] MEDS: allopurinoL 300 MG TAB PO SCH (08:40)
[2020-11-29] MEDS: APIXABAN 5 MG TABLET PO SCH ×2 (08:40→20:14)
[2020-11-29] MEDS: MIRTAZAPINE TAB 15 MG TAB PO SCH (08:41)
[2020-11-29] MEDS: POLYETHYLENE (MIRALAX) 17 GM PACK PO SCH ×2 (08:45→20:15)
[2020-11-29] MEDS: DOCUSATE SODIUM 100 MG CAP PO SCH ×2 (08:45→20:15)
[2020-11-29] MEDS: POTASSIUM CHLORIDE CRTAB 20 MEQ TABCR PO SCH (08:45)
[2020-11-29 09:10] LABS: BUN Creatinine Ratio 25.1 (10-20); Calcium 8.2 mg/dl (8.5-10.1); Est GFR (African American) 52.5 ml/min; Est GFR (Non-African American) 45.3 ml/min; Potassium 4.1 mmol/L (3.5-5.1)
--- NOTE | 2020-11-29 13:45 | Hospitalist Progress Note ---
Date of Service November 29, 2020 Assessment & Plan (1) Bacteremia: Plan: 89-year-old male with a complex past medical history including A. fib on Eliquis, CHF, BPH with urinary obstruction, CKD3, hypertension who was recently discharged from the hospital for acute on chronic diastolic CHF and lower extremity cellulitis presents from [facility] now presenting for evaluation of atrial fibrillation with rapid ventricular response. RVR resolved. Currently being treated for bacteremia of unclear source. Bacteremia Patient p/w fever in ED, confusion; blood culture positive for S. aureus, TTE (11/20) without sign of endocarditis; patient started on vanc/zosyn Source unclear, differential includes endocarditis, diverticulitis (LLQ tenderness on admission though resolved), sacral ulcer (XR spine negative for signs of infection 11/23) Repeat blood cultures (11/21) positive for S. aureus resistant to clindamycin and erythromycin (same as original blood culture results) Vanc/zosyn discontinued (11/21) and doxycycline IV started, which was then discontinued (same day) and dapto/ceftriaxone IV started (11/21) ID consulted (11/23), recommended ancef IV and KRYSTAL; however, cardiology not comfortable performing KRYSTAL on patient with his comorbidities Discussed again with ID (11/26); given inability to perform KRYSTAL, ID recommends ancef IV for six weeks total Continue IV ancef - dosing per pharmacy Blood culture repeated 11/25; one of two positive for gram-positive cocci in clusters; will repeat DC to [facility] soon - CM following Sacral ulcer Continue wound care A. fib with RVR Tachycardic on admission, cardiology informally recommended 25mg metoprolol and gentle fluid bolus Rate controlled since Continue eliquis Continue metoprolol 25mg PO bid, IV lopressor 5mg for HR > 120 CHF Patient recently discharged from hospital for [id number] CHF exacerbation complicated by cellulitis On admission, no evidence of fluid overload Cardiology recommends home dose furosemide (40mg) every other day or a weight- based diuretic scale Continue KCl 20mEq daily Poor PO intake Nutrition consulted Continue mirtazapine 15mg PO qd Elevated troponin Patient with minimally-elevated troponin on admission in setting of chronic elevation Troponin peaked at 1.66 on 11/20; suspected secondary to demand ischemia No further monitoring indicated Hypertension Home regimen held on admission given hemodynamic instability Continue metoprolol as above Close monitoring given soft pressures (11/27) LASHAWN on CKD Creatinine elevated on admission to 1.58 (baseline 1.2), has since resolved Trend daily BMP, avoid nephrotoxins Anxiety and depression Continue fluoxetine 10mg daily Some concern was raised related suicidal ideation; this has not been evident during this hospitalization Patient does not need q15 minute checks upon discharge from hospital GERD Continue home esomeprazole FEN: heart healthy, low sodium Code status: full code DVT ppx: eliquis Isolation: none Consults: ID Dispo: med/surg (2) Atrial fibrillation with rapid ventricular response: (3) Diastolic CHF: (4) Chronic kidney disease, stage 3: (5) Hypertension: (6) GERD (gastroesophageal reflux disease): (7) Anxiety and depression: Admission and Anticipated Discharge Date Admission Date: November 19, 2020 Supervising Physician Co-Signing Physician Notes I personally examined the patient and verified all bradshaw points of history and exam, discussed case, and agree with decision making with Dr Cox Resting comfortably. Waiting on disposition. Vitals noted, no distress. HEENT normocephalic atraumatic mucous membranes moist. Breathing unlabored no accessory muscle use good effort. Skin shows no rash no pallor or icterus. No focal neuro deficits at rest. MSSA bacteremiaunable to get TEEin resident discussions with infectious disease we will treat for 6 weeks. Given ongoing persistence of bacteremia, treatment might need to be extended longer, but given how stable he is and that KRYSTAL will not be done, current treatment will remain the same. The main issue will be ongoing intermittent discussions with infectious disease on 6 weeks versus longerlargely contingent on follow-up cultures. He appears absolutely stable however. Sacral ulcerlocal wound care. Otherwise as above Subjective Patient seen and evaluated at bedside this morning. No acute events overnight. Patient feels okay this morning and has no new complaints. Patient denies CP, SOB, abdominal pain, nausea, vomiting, lightheadedness, dizziness, back pain, weakness, dysuria, diarrhea, or other symptoms. Review of Systems Review of Systems: See HPI Physical Exam Physical Exam: Constitutional: well-appearing, comfortable, no acute distress CV: regular rhythm, no murmur appreciated, extremities well-perfused, minimal LE edema BL Resp: CTABL, no wheezes/rales/rhonchi appreciated, no increased work of breathing Skin: warm, dry, no rash appreciated Neuro: AOx4, no focal deficits appreciated Results & Data Results & Data ([facility]) Vital Signs (Past 12 Hours) Vital Signs Temp Pulse Resp BP Pulse Ox 11/29/20 11:14 36.4 C L 77 18 98/64 L 94 11/29/20 08:05 36.6 C 11/29/20 06:56 75 19 109/79 94 11/29/20 02:53 36.5 C 73 18 109/72 95 (1) Chronic kidney disease, stage 3 Chronic kidney disease stage 3 subtype: stage 3b (GFR 30-44) Qualified Code(s): N18.32 - Chronic kidney disease, stage 3b
--- NOTE | 2020-11-29 17:58 | Billing Data ---
Date of Service November 29, 2020 Coding Level of Care Code 55067 Subseq Hosp Care Lvl 1
[2020-11-29] MEDS: ACETAMINOPHEN 500 MG TAB PO PRN (22:13)
[2020-11-30] MEDS: FERROUS SULFATE 325 MG TAB PO SCH (08:59)
[2020-11-30] MEDS: PANTOprazole 40 MG TAB PO SCH (08:59)
[2020-11-30] MEDS: FLUoxetine HCL 10 MG CAP PO SCH (08:59)
[2020-11-30] MEDS: APIXABAN 5 MG TABLET PO SCH (08:59)
[2020-11-30] MEDS: FUROSEMIDE 40 MG TAB PO SCH (08:59)
[2020-11-30] MEDS: ceFAZolin 2000MG 2,000 MG/15 ML SYR IV SCH (08:59)
[2020-11-30] MEDS: METOPROLOL TARTRATE 25 MG TAB PO SCH (08:59)
[2020-11-30] MEDS: allopurinoL 300 MG TAB PO SCH (09:00)
[2020-11-30] MEDS: MIRTAZAPINE TAB 15 MG TAB PO SCH (09:00)
[2020-11-30] MEDS: POLYETHYLENE (MIRALAX) 17 GM PACK PO SCH (09:03)
[2020-11-30] MEDS: POTASSIUM CHLORIDE CRTAB 20 MEQ TABCR PO SCH (09:03)
--- NOTE | 2020-11-30 09:16 | Discharge Summary ---
Date of Service November 30, 2020 Principal Diagnosis MSSA bacteremia Discharge Data Allergies Allergy/AdvReac Type Severity Reaction Status Date / Time No Known Allergies Allergy Unknown Verified 11/19/20 12:21 Consultations 11/19/20 15:23 ED Decision to Admit Stat 11/20/20 08:36 Consult Cardiology Routine 11/23/20 13:49 Consult Infectious Diseases Routine 11/23/20 16:56 Consult Anesthesiology Routine Ordered Studies 11/19/20 12:22 CT abd pelvis wo con Stat CT head/brain wo con Stat 11/22/20 23:52 CT chest diagnostic wo con Routine Hospital Course (1) Bacteremia: Bacteremia Patient p/w fever in ED, confusion; admission blood culture (11/19) positive for MSSA resistant to clindamycin and erythromycin; started vanc/zosyn; TTE (11/20) negative Source unclear, differential includes endocarditis, sacral ulcer (XR spine negative 11/23), diverticulitis (LLQ tenderness on admission resolved within 1 day) Repeat blood cx (11/21) two of two with MSSA (same sensitivities as 11/19 cultures) ID consulted (11/23), recommended ancef IV and KRYSTAL; however, cardiology not comfortable performing KRYSTAL on patient with his comorbidities * Subsequent discussion with ID (11/26): given inability to perform KRYSTAL, ID recommends ancef IV for six weeks starting on the date of the first negative blood culture Repeat blood culture (11/25) one of two cultures positive for MSSA (same sensitivities as 11/19 cultures) After discussion with pharmacy (11/30), ancef switched to nafcillin due to risk of ancef resistance that isn't always reflected on culture sensitivities Plan for bacteremia upon discharge to SNF: * Follow up repeat blood culture (11/29) results * Continue nafcillin 2g IV every four hours - to be continued for six weeks (through 01/17/2021), duration to be extended if repeat blood cultures continue to be positive * If 11/29 cultures come back positive, recommend repeat blood cultures to be drawn 12/02 * Patient should receive weekly CBC and BMP while receiving nafcillin Sacral ulcer Continue wound care A. fib with RVR Tachycardic on admission, cardiology informally recommended 25mg metoprolol and gentle fluid bolus Rate controlled since Continue eliquis 5mg PO bid Continue metoprolol 25mg PO bid, IV lopressor 5mg for HR > 120 CHF Patient recently discharged from hospital for [id number]-ao-okmuune CHF exacerbation complicated by cellulitis On admission, no evidence of fluid overload Cardiology recommends home dose furosemide (40mg) every other day, or if patient gains >3 lbs in under 2 days Continue KCl 20mEq daily Poor PO intake Continue mirtazapine 15mg PO qd Elevated troponin Patient with minimally-elevated troponin on admission in setting of chronic elevation Troponin peaked at 1.66 on 11/20; suspected secondary to demand ischemia No further monitoring indicated Hypertension Prior home regimen (metoprolol succinate ER 12.5mg PO bid) discontinued New home regimen to be continued upon discharge: metoprolol tartrate 25mg PO bid LASHAWN on CKD Creatinine elevated on admission to 1.58 (baseline 1.2), has since resolved Weekly BMP Anxiety and depression Continue fluoxetine 10mg daily Some concern was raised related suicidal ideation; this has not been evident during this hospitalization Patient does not need q15 minute checks upon discharge from hospital Anemia Continue ferrous sulfate 325mg qMWF GERD Continue home esomeprazole Gout Continue allopurinol 300mg PO qAM (2) Atrial fibrillation with rapid ventricular response: (3) Diastolic CHF: (4) Chronic kidney disease, stage 3: (5) Hypertension: (6) GERD (gastroesophageal reflux disease): (7) Anxiety and depression: Total Time Total Time Spent Total Time Spent (In Minutes): <30 Discharge Plan Discharge Items Patient Disposition: Transfer [facility] Reason For Visit: AFIB RVR Discharge Diagnosis: MSSA bacteremia Activity: Resume your previous activity Non-emergency contact: Primary Care Provider Call non-emergency contact if: your symptoms worsen and you have a fever Follow-up/Referrals: Moustapha Joshi MD [Primary Care Provider] - Diet: Heart Healthy and Low Sodium (2gm) Addtl Attending Provider Instructions: 89-year-old male with a complex past medical history including A. fib on Eliquis, CHF, BPH with urinary obstruction, CKD3, hypertension who was recently discharged from the hospital for acute on chronic diastolic CHF and lower ex tremity cellulitis presents from [facility] now presenting for evaluation of atrial fibrillation with rapid ventricular response. RVR resolved. Currently being treated for bacteremia of unclear source. Bacteremia Patient p/w fever in ED, confusion; admission blood culture (11/19) positive for MSSA resistant to clindamycin and erythromycin; started vanc/zosyn; TTE (11/20) negative Source unclear, differential includes endocarditis, sacral ulcer (XR spine negative 11/23), diverticulitis (LLQ tenderness on admission resolved within 1 day) Repeat blood cx (11/21) two of two with MSSA (same sensitivities as 11/19 cultures) ID consulted (11/23), recommended ancef IV and KRYSTAL; however, cardiology not comfortable performing KRYSTAL on patient with his comorbidities * Subsequent discussion with ID (11/26): given inability to perform KRYSTAL, ID recommends ancef IV for six weeks starting on the date of the first negative blood culture Repeat blood culture (11/25) one of two cultures positive for MSSA (same sensitivities as 11/19 cultures) After discussion with pharmacy (11/30), ancef switched to nafcillin due to risk of ancef resistance that isn't always reflected on culture sensitivities Plan for bacteremia upon discharge to [facility]: * Follow up repeat blood culture (11/29) results * Continue nafcillin 2g IV every four hours - to be continued for six weeks (through 01/17/2021), duration to be extended if repeat blood cultures continue to be positive * If 11/29 cultures come back positive, recommend repeat blood cultures to be drawn 12/02 * Patient should receive weekly CBC and BMP while receiving nafcillin Sacral ulcer Continue wound care A. fib with RVR Tachycardic on admission, cardiology informally recommended 25mg metoprolol and gentle fluid bolus Rate controlled since Continue eliquis 5mg PO bid Continue metoprolol 25mg PO bid, IV lopressor 5mg for HR > 120 CHF Patient recently discharged from hospital for ggzyr-wj-[id number] CHF exacerbation complicated by cellulitis On admission, no evidence of fluid overload Cardiology recommends home dose furosemide (40mg) every other day, or if patient gains >3 lbs in under 2 days Continue KCl 20mEq daily Poor PO intake Continue mirtazapine 15mg PO qd Elevated troponin Patient with minimally-elevated troponin on admission in setting of chronic elevation Troponin peaked at 1.66 on 11/20; suspected secondary to demand ischemia No further monitoring indicated Hypertension Prior home regimen (metoprolol succinate ER 12.5mg PO bid) discontinued New home regimen to be continued upon discharge: metoprolol tartrate 25mg PO bid LASHAWN on CKD Creatinine elevated on admission to 1.58 (baseline 1.2), has since resolved Weekly BMP Anxiety and depression Continue fluoxetine 10mg daily Some concern was raised related suicidal ideation; this has not been evident during this hospitalization Patient does not need q15 minute checks upon discharge from hospital Anemia Continue ferrous sulfate 325mg qMWF GERD Continue home esomeprazole Gout Continue allopurinol 300mg PO qAM Pending Studies at Discharge: Yes Studies:: 11/29 blood culture Stand-Alone Forms: [facility] Skilled Items Patient informed of condition?: Yes DNR: No Discharge Level of Care: Skilled Communicable Disease: No Discharge Prognosis: Stable Lines: PICC Urinary Catheter: No Medications and DC Order Prescriptions: New nafcillin 2 gram recon soln 2 g IV Q4H 42 Days Qty: 252 RF: 0 Continued allopurinol 300 mg tablet 300 mg PO QAM RF: 0 esomeprazole magnesium 40 mg capsule,delayed release(DR/EC) 40 mg PO QAM RF: 0 Eliquis 5 mg tablet 5 mg PO BID Qty: 60 RF: 3 mirtazapine [Remeron] 15 mg tablet 15 mg PO DAILY RF: 0 docusate sodium [Colace] 100 mg capsule 100 mg PO BID RF: 0 metoprolol succinate 25 mg tablet extended release 24 hr 12.5 mg PO BID RF: 0 fluoxetine 10 mg capsule 10 mg PO DAILY RF: 0 ferrous sulfate 325 mg (65 mg iron) tablet 325 mg PO BID Qty: 60 RF: 0 furosemide 40 mg tablet 40 mg PO DAILY RF: 0 potassium chloride [Klor-Con M20] 20 mEq Tablet,Er Particles/Crystals 20 meq PO QAM Qty: 0 RF: 0 Discharge Orders: Discharge Order (Routine); Ordered 11/30/20 Ordered By: Jackson Cox Admission Data Admit Date/Time: 11/19/20 18:40 Attending Provider: Tyler Ray Admit Provider: Gilmar Brandt Primary Care Provider: Moustapha Joshi Other Providers: Gilmar Brandt ; Tejas Saenz ; Driss Shah ; Melvin Aaron ; Gary Mosquera ; Ramu Curry ; Laurent Martinez ; Bandar Jalloh Jr ; Daniel Watson ; Alicia Zarate ; Karie Roy ; Gilmar Hayes ; Gilmar Licona ; Salvador Tsai ; Sid Garza ; Mita Odell ; Edwin Pruitt ; Norbert Burns ; Juaquin Rivera ; Caleb Mayorga ; Jasmyn Santos ; Frantz Toussaint I. ; Samir Hester II ; Pat Espinoza ; Bryan Juárez ; Frannie Armenta ; Rosemary Glez ; Anahi Moses ; Melvi Hanley ; Tracy Sanders ; Reagan Estrada ; Panchito Luna ; Juaquin Greene ; Garland Dey ; Winnie Dey ; Chun Munoz ; Mita Merchant ; Hemant Downing ; Wong Montero ; Marlon Cisneros ; Fran Galdamez ; Arlene Almonte ; Bryan Ames ; Lady Loyola ; Camilla Ames ; Bjorn Sow ; Clarissa Ortez ; Cipriano Sullivan ; Bianca Pearce ; Mili Davis ; Clarissa Gan ; Danielle Desouza ; Viraj Leong ; Emily Russell ; Jayashree Robertson ; Karissa Godinez ; Leesa Godoy ; Abelino Godoy V ; Donnie Appiah ; Rosemary Eldridge ; Cliff Zelaya ; Iraida Wiggins ; Ashlyn Raymundo ; Abelino Vernon ; Christian Almonte ; Delon Maldonado ; Mariza Da Silva ; Karissa Mathis ; Ramu Galvan ; Neo Galdamez ; Savana Paniagua ; Gilmar Reyes ; Jhon Moody ; Nnamdi Landon ; Scar Mendoza ; Gilmar Gould ; Reagan Fong Jr ; Tootie Leonardo ; [place],[facility] [place] Other Interventions: Discharge Summary Assessment (RN) Last Done: 11/30/20 13:41 Supervising Physician Co-Signing Physician Notes I personally examined the patient and verified all bradshaw points of history and exam, discussed case, and agree with decision making with Dr Cox no complaints - appears finally for dispo Vitals noted, no distress. HEENT normocephalic atraumatic mucous membranes moist. Breathing unlabored no accessory muscle use good effort. Skin shows no rash no pallor or icterus. No focal neuro deficits at rest. MSSA bacteremiaunable to get TEEin resident discussions with infectious disease we will treat for 6 weeks. Given ongoing persistence of bacteremia, while can't truly call this a cephazolin failure - will switch to nafcillin for less potential for treatment failure, treat six weeks from today. ongoing follow up of cultures. can obtain ongoing guidance from selin Fuentes if needed via phone/tiger Sacral ulcerlocal wound care. Otherwise as above Resident Activity Tracking Resident Involvement: Resident Care Provided and Registered Radiographer Coverage Note Care Provided: Adult Hospital Medicine
[2020-11-30 09:33] LABS: Basophils # (auto) 0.02 K/uL (0-0.2); Basophils % (auto) 0.3 %; Eosinophils # (auto) 0.11 K/uL (0-0.5); Eosinophils % (auto) 1.7 %; Hematocrit (blood only) 36.1 % (42-52); Hemoglobin 11.9 g/dL (14.0-18.0); Immature Granulocytes # (auto) 0.09 K/uL (0.00-0.02); Immature Granulocytes % (auto) 1.4 %; Lymphocytes # (auto) 1.31 K/uL (1.2-3.4); Lymphocytes % (auto) 20.2 %; Mean Corpuscular Hemoglobin 35.2 pg (25-34); Mean Corpuscular Volume 106.8 fL (80-100); Mean Platelet Volume 10.4 fL (7.4-10.4); Monocytes # (auto) 0.37 K/uL (0.11-0.59); Monocytes % (auto) 5.7 %; Neutrophils # (auto) 4.59 K/uL (1.4-6.5); Neutrophils % (auto) 70.7 %; Platelet Count 181 K/uL (130-400); RDW Standard Deviation 65.9 fL (36.4-46.3); Red Blood Count 3.38 M/uL (4.7-6.1); White Blood Count 6.49 K/uL (4.8-10.8)
[2020-11-30 10:20] LABS: BUN Creatinine Ratio 26.4 (10-20); Calcium 8.6 mg/dl (8.5-10.1); Creatinine Clr Calc Pharmacy 35.5 ml/min; Est GFR (African American) 49.9 ml/min; Potassium 4.3 mmol/L (3.5-5.1)
[2020-11-30] MEDS: DOCUSATE SODIUM 100 MG CAP PO SCH (10:29)
[2020-11-30] MEDS ORDERED: NAFCILLIN SODIUM 2,000 MG in DEXTROSE 5% 100 ML IV SCH (12:00)
--- NOTE | 2020-11-30 13:37 | XRay Report ---
XR chest 1V portable CLINICAL HISTORY: Left PICC placement COMPARISON STUDY: November 23, 2020 FINDINGS: No pneumothorax. Interval improvement of bilateral pleural effusions. Linear opacities are seen in bilateral bases which could represent atelectasis or infiltrates, slight ly improved since prior. Cardiomediastinal silhouette is prominent, not significantly changed since prior. Minimal pulmonary vascular congestion is seen.. Osseous structures: Degenerative changes of the spine. Severe degenerative changes of bilateral shou lders. Interval placement of the left-sided PICC line with tip projecting to the anatomical region of superi or vena cava. IMPRESSION: 1. Interval placement of left-sided PICC line with tip projecting to the anatomical region of superi or vena cava. No evidence of pneumothorax. 2. Mild interval improvement of bilateral pleural effusion and atelectasis/infiltrate at bilateral b ases. 3. Redemonstration of the prominence of cardiac silhouette with mild pulmonary vascular congestion. ACT 112: Negative or not required by law. The above report was generated using voice recognition software. It may contain grammatical, syntax o r spelling errors. Electronically signed by: Tayla Garrison DO 11/30/2020 1:35 PM
--- NOTE | 2020-11-30 17:23 | Billing Data ---
Date of Service November 30, 2020 Coding Level of Care Code D/C DAY MANAGEMENT <30 MINS
[2020-12-01] MEDS ORDERED: FERROUS SULFATE 325 MG TAB PO SCH (09:00)
--- NOTE | 2020-12-11 13:10 | Coding Query ---
PRESSURE ULCER DOCUMENTATION To promote full compliance with coding requirements relating to patient care, physician participation is requested in all cases of airport representative uncertainty. Please assist us with the question(s) below: Please specify the known or suspected type by placing an "X" within the parenthesis (x). A pressure ulcer of the sacrum If possible, please check the box that provides the specific stage of the pressure ulcer ( ) Stage I ( ) Stage II ( x ) Stage III ( ) Stage IV ( ) Unstageable ( ) Unable to determine Was the pressure ulcer present on admission? Please check the appropriate box for the pressure ulcer: (x ) Present on admission ( ) Not present on admission ( ) Unable to be clinically determined Thank you Maria Elena JENKINS
== END 2020-11-30 15:37 | DRG 871 ==
LOC: ED 11:27 → 2S 18:40 → SUATTDRO 18:40 → 2S 20:05 → 2N 11-27 09:18

== ENCOUNTER 2020-12-24 19:35 | Inpatient (IN) ==
[2020-12-24] MEDS ORDERED: VANCOMYCIN CONSULT ACTIVE PRN (20:06)
[2020-12-24] MEDS ORDERED: VANCOMYCIN HCL 1,500 MG in SODIUM CHLORIDE 0.9% 500 ML IV ONE (20:06)
--- NOTE | 2020-12-24 20:06 | Emergency Department Note ---
Impression & Plan Acute respiratory failure with hypoxia, Acute CHF (congestive heart failure), Afib ED Provider Note Provider: Fran Meadows MD DATE OF SERVICE: 12/24/2020 CHIEF COMPLAINT: Shortness of breath HISTORY OF PRESENT ILLNESS: Patient is a 89-year-old gentleman past medical history including atrial fibrillation, CHF, GERD, bacteremia currently on nafcillin, CKD, hypertension presenting via ambulance from [facility] today reportedly more short of breath today. Report that the patient had developed shortness of breath and had a chest x-ray today concerning for bilateral infiltrates. Was in 80s on room air and placed on oxygen 2 L which is atypical for the patient. Patient does report some increased bilateral lower extremity edema. Patient has been on nafcillin and was given a dose of azithromycin today at his facility. Patient has been on Eliquis as well. Had some blood work today showing some worsening of his renal function. Patient's he feels anxious but denies significant worse of breath. Reports a little bit of left side abdominal pain but states has been eating okay. Denies any trauma. States some swelling of the abdomen as well as lower legs. Patient endorses significant chills but denies fever. REVIEW OF SYSTEMS: A total of 10 review of systems was obtained and negative except as stated above in the HPI. PAST MEDICAL HISTORY: As noted above MEDICATIONS: Reviewed home medication list currently includes Eliquis and nafcillin every 4 hours SOCIAL HISTORY: Currently residing at [facility], non smoker PHYSICAL EXAM: GENERAL: alert and oriented in no acute distress on stretcher although somewhat anxious in discussion with the patient Head: normocephalic and atraumatic EYES: No injection, discharge or icterus. NECK: Trachea midline. Supple. ENT: Mucous membranes pink and moist. LUNGS: Airway patent. No retractions. Breath sounds clear anterior but diminished bases posteriorly HEART: Irregular tachycardic rate and rhythm. No chest wall tenderness. Patient with decreased capillary refill of the fingers. ABDOMEN: Non-tender, without guarding or rebound. Patient with some mild edema of the lower abdomen appreciated but no obvious ascites SKIN: Dry without significant weeping edema. Patient with some mild peripheral cyanosis. Patient with a mild sacral decub. EXTREMITIES: Patient with a left upper extremity PICC line in place. 3-4+ edema the bilateral legs up to the abdomen. Extremities are somewhat cool and touch. NEUROLOGICAL: No focal deficits. No aphasia. No facial droop or slurred speech. Normal strength and tone in the extremities.. EK bpm atrial fibrillation with rapid ventricular response. No acute ST segment elevation or depression. QTC 405. Slight baseline artifact. CONTINUOUS CARDIAC MONITORING: was ordered and showed a heart rate of 90s-110s bpm in atrial fibrillation Patient's laboratory studies and imaging reviewed. Differential includes Reactive airway disease, pneumonia, pneumothorax, COPD, CH F, infections, cardiac ischemia, pulmonary embolism, musculoskeletal, gastrointestinal, as well as other pathologies. IMPRESSION/MEDICAL DECISION MAKING: Patient currently on nafcillin for recent MSSA bacteremia. Now requiring oxygen which is unusual evidence of fluid edema. Chest x-ray tender with evidence of consolidation versus pulmonary edema and effusions. We will broaden his antibiotics at this time to vancomycin and cefepime given concern for possible other systemic infection. Renal function is somewhat off but concern for fluid overload given a dose of Lasix here. Patient initially maintained on nasal cannula and then oxy mask. Patient abdomen seems a little bit edematous but without santos ascites and not significantly tender peritoneal. With some slight abdominal tenderness will complete a CT here. Without contrast given his renal function. CT scan reports as below show evidence of fluid overload and pulmonary edema. Less convincing on the CT for pneumonia but already broadly covered with vancomycin and cefepime based on the initial x-ray and his history of recent bacteremia. Patient received a dose of azithromycin earlier today. Is anticoagulated thus lower suspicion for PE. Patient troponin is elevated but less than previous. Mildly tachycardic. Cultures were obtained today. ABG seems to show reasonable oxygenation but pulse ox both peripherally on the forehead seems fairly steady in the 80s. Given this discussed with him utilizing BiPAP to help with any component of pulmonary edema and his oxygenation although is not distressed. He was in agreement to try this. The hospitalist to be contacted for further inpatient care. Patient more comf ortable on BiPAP and satting better although he remains anxious. DIAGNOSIS: Acute diastolic CHF exacerbation, hypoxic respiratory failure, atrial fibrillation DISPOSITION: Hospitalist will evaluate Patient was agreeable with this plan. Critical Care I have personally spent 35 minutes of critical care time in the direct management of this patient. This includes bedside care, interpretation of diagnostic studies, and testing, discussion with consultants, patient, and other required patient management activities. These 35 minutes is in excess of all separately billable procedures. Preliminary Findings Only See Final Report For Complete Findings CT CHEST Without Contrast: Moderate bilateral pleural effusions with associated passive atelectasis. Mild cardiomegaly. No evidence of superimposed airspace disease. 7 mm semisolid nodule of the right upper lobe. Fleischner Society Guidelines for low-risk patients recommend follow-up chest CT at 6-12 months. If unchanged consider an additional follow-up CT at 18-24 months. For high-risk patients (smoking history or other known risk factors) initial follow-up chest CT at 6-12 months and if unchanged, 18-24 months. Degenerative changes of the shoulders.. Radiologist: Oseas Gleason MD Study ready at 22:03 and initial results transmitted at 22:07 Preliminary Findings Only See Final Report For Complete Findings CT ABDOMEN & PELVIS Without Contrast: Small volume diffuse ascites. Scattered punctate calcification of both kidneys may represent vascular calcifications or kidney stones. No hydronephrosis. Colonic diverticulosis. No evidence of superimposed diverticulitis however, presence of ascites limits assessment for adjacent pericolonic inflammatory changes. Surgically absent gallbladder. Diverticula of the bladder. Small fluid containing left indirect inguinal hernia. Left total hip arthroplasty. Radiologist: Oseas Gleason MD Study ready at 22:03 and initial results transmitted at 22:12 Past Med/Surg History Medical History (Updated 12/24/20 @ 22:16 by Fran Meadows M.D.) Abdominal ascites Abnormal cystoscopy Actinic keratosis Acute febrile illness Atrial fibrillation with rapid ventricular response (03/2020) Atrial fibrillation with rapid ventricular response Bacteremia Bilateral nephrolithiasis (2005) Bilateral pleural effusion Bladder cancer (2017) Chronic kidney disease, stage 3 Elevated troponin Per cardiology note 08/05/20: (2) Elevated troponin: -mild elevation likely a supply demand mismatch and not coronary ischemia. 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 -did have elevated heart rate and low blood pressure while in the emergency room. Elevated troponin I level GI bleed Gout Hearing loss Hematuria (2018) History of basal cell carcinoma (2016) Hypercholesteremia Male erectile disorder of organic origin Valvular heart disease Vitamin D deficiency Surgical History H/O pyloroplasty H/O shoulder surgery Hx laparoscopic cholecystectomy (08/06/20) Laparoscopic Cholecystectomy with Cholangiogram, Lysis of Adhesions Dr. Ra cowan 08/06/2020 S/P bladder tumor excision with fulguration (2016) S/P knee surgery Status post ORIF of fracture of ankle Family History Grandfather Cancer Social History Smoking Status: Unknown if ever smoked Age Quit Using Tobacco: 32; Second Hand Exposure: No; Hx Alcohol Use: No Hx Substance Use: No Preferred Language: Emirati Communication Ability: Effective Towel Weaver Required: No Beliefs That Will Affect Care: None marital status: Current Living Situation: Spouse Current Living Situation Comment: lives w/ current occupational status: retired How many Children do You have: 2 Feels Safe at Home: Yes Assistive Devices: None Allergies Allergies Allergy/AdvReac Type Severity Reaction Status Date / Time No Known Allergies Allergy Unknown Verified 12/24/20 21:40 Home Meds Home Medications Medication Instructions Recorded Confirmed allopurinol 300 mg tablet 300 mg PO QAM tab 01/21/19 12/24/20 esomeprazole magnesium 40 mg 40 mg PO QAM cap 01/21/19 12/24/20 capsule,delayed release fluoxetine 10 mg capsule 10 mg PO QAM 10/15/20 12/24/20 metoprolol succinate 25 mg 12.5 mg PO BID tab 10/15/20 12/24/20 tablet,extended release 24 hr docusate sodium 100 mg capsule 100 mg PO BID 11/15/20 12/24/20 (Colace) mirtazapine 15 mg tablet (Remeron) 15 mg PO DAILY 11/15/20 12/24/20 acetaminophen 325 mg tablet 650 mg PO Q6H PRN MDD 3G 12/24/20 12/24/20 (Tylenol) azithromycin 250 mg tablet 250 mg PO DAILY 12/24/20 12/24/20 azithromycin 500 mg tablet 500 mg PO .DAILY X1 12/24/20 12/24/20 potassium chloride 20 mEq 20 meq PO BID 12/24/20 12/24/20 tablet,extended release(part/cryst) (Klor-Con M) Previous Rx's Medication Instructions Recorded apixaban 5 mg tablet (Eliquis) 5 mg PO BID #60 tab 07/26/20 ferrous sulfate 325 mg (65 mg 325 mg PO BID #60 tab 10/15/20 iron) tablet nafcillin 2 gram intravenous 2 g IV Q4H 42 Days #252 ea 11/30/20 solution Results & Data (ED) Vital Signs Vital Signs - 24 hr 12/24/20 19:41 12/24/20 19:55 12/24/20 19:56 Temperature 37.1 C Temperature Source Oral Pulse Rate 93 H 107 H Pulse Rate from SpO2 Sensor Respiratory Rate 26 H 22 Respiratory Effort / Characteristics Non-Labored Spontaneous Non-Labored Respiratory Depth Normal Respiratory Pattern Regular Blood Pressure 115/97 110/87 Blood Pressure Mean 103 94 Pulse Oximetry 98 886 H Oxygen Delivery Method Nasal Cannula Oxygen Flow Rate 10 6 Fraction of Inspired Oxygen Sepsis Recent Fever Within 48 Hours No Sepsis New/Unexplained Change in Mental Status No Sepsis Action Taken by Nursing Physician Notified 12/24/20 20:00 12/24/20 20:30 12/24/20 21:00 Temperature Temperature Source Pulse Rate 93 H 105 H 108 H Pulse Rate from SpO2 Sensor 93 H 104 H 110 H Respiratory Rate 20 22 20 Respiratory Effort / Characteristics Respiratory Depth Respiratory Pattern Blood Pressure 129/104 H 127/100 116/96 Blood Pressure Mean 112 109 102 Pulse Oximetry 98 95 97 Oxygen Delivery Method Oxygen Flow Rate 8 8 8 Fraction of Inspired Oxygen Sepsis Recent Fever Within 48 Hours Sepsis New/Unexplained Change in Mental Status Sepsis Action Taken by Nursing 12/24/20 21:30 12/24/20 22:00 12/24/20 22:08 Temperature Temperature Source Pulse Rate 102 H 93 H 93 H Pulse Rate from SpO2 Sensor 101 H 92 H Respiratory Rate 20 15 16 Respiratory Effort / Characteristics Spontaneous Respiratory Depth Normal Respiratory Pattern Regular Blood Pressure 118/90 126/91 Blood Pressure Mean 99 102 Pulse Oximetry 89 L 100 99 Oxygen Delivery Method BiPAP Oxygen Flow Rate 8 Fraction of Inspired Oxygen 40 Sepsis Recent Fever Within 48 Hours Sepsis New/Unexplained Change in Mental Status Sepsis Action Taken by Nursing Laboratory Data Result diagrams: 12/24/20 20:12 12/24/20 20:12 Lab Results 12/24/20 12/24/20 12/24/20 Range/Units 20:07 20:07 20:12 WBC (4.8-10.8) K/uL RBC (4.7-6.1) M/uL Hgb (14.0-18.0) g/dL Hct (42-52) % MCV (80-100) fL MCH (25-34) pg MCHC (32-36) g/dL RDW Std Deviation (36.4-46.3) fL RDW Coeff of Osito (11.5-14.5) % Plt Count (130-400) K/uL MPV (7.4-10.4) fL Immature Gran % (Auto) % Neut % (Auto) % Lymph % (Auto) % Mclean % (Auto) % Eos % (Auto) % Baso % (Auto) % Neut # (Auto) (1.4-6.5) K/uL Lymph # (Auto) (1.2-3.4) K/uL Mclean # (Auto) (0.11-0.59) K/uL Eos # (Auto) (0-0.5) K/uL Baso # (Auto) (0-0.2) K/uL Immature Gran # (Auto) (0.00-0.02) K/uL Absolute Nucleated RBC (0-0) K/uL Nucleated RBC % (auto) % Anisocytosis Echinocytes PT 14.7 H (9.0-12.0) Seconds INR 1.5 H (0.9-1.1) ABG pH (7.35-7.45) ABG pCO2 (35-46) mmHg ABG pO2 (80-95) mmHg ABG HCO3 (19-24) mmol/L ABG O2 Saturation (90-95) % ABG Base Excess (-9-1.8) mEq/L Jerson Test (Pos) Barometric Pressure mm/Hg Oxygen Given Sodium (136-145) mmol/L Potassium (3.5-5.1) mmol/L Chloride (98-107) mmol/L Carbon Dioxide (21-32) mmol/L Anion Gap (3-11) BUN (7-18) mg/dl Creatinine (0.6-1.4) mg/dl Est Cr Clr Drug Dosing Est GFR ( Amer) ml/min Est GFR (Non-Af Amer) ml/min BUN/Creatinine Ratio (10-20) Glucose (70-99) mg/dl Lactate Calcium (8.5-10.1) mg/dl Magnesium (1.8-2.4) mg/dl Total Bilirubin (0.2-1) mg/dl AST (15-37) U/L ALT (12-78) U/L Alkaline Phosphatase (45-117) U/L Troponin I (0-0.045) ng/ml NT-Pro-B Natriuret Pep (0-1800) pg/ml Total Protein (6.4-8.2) gm/dl Albumin (3.4-5.0) gm/dl Globulin (2.5-4.0) gm/dl Albumin/Globulin Ratio (0.9-2) Lipase (73-393) U/L Procalcitonin (0-0.5) ng/ml TSH (0.300-4.500) uIu/ml Free T4 (0.8-1.6) ng/dl COVID-19 Eval Order Covid19 at [facility] SARS-CoV-2 (PCR) NEGATIVE (Negative) 12/24/20 12/24/20 12/24/20 Range/Units 20:12 20:12 20:12 WBC 8.33 (4.8-10.8) K/uL RBC 3.66 L (4.7-6.1) M/uL Hgb 13.1 L (14.0-18.0) g/dL Hct 38.2 L (42-52) % MCV 104.4 H (80-100) fL MCH 35.8 H (25-34) pg MCHC 34.3 (32-36) g/dL RDW Std Deviation 73.0 H (36.4-46.3) fL RDW Coeff of Osito 20.4 H (11.5-14.5) % Plt Count 173 (130-400) K/uL MPV 10.2 (7.4-10.4) fL Immature Gran % (Auto) 1.1 % Neut % (Auto) 72.0 % Lymph % (Auto) 16.4 % Mclean % (Auto) 7.9 % Eos % (Auto) 1.9 % Baso % (Auto) 0.7 % Neut # (Auto) 5.99 (1.4-6.5) K/uL Lymph # (Auto) 1.37 (1.2-3.4) K/uL Mclean # (Auto) 0.66 H (0.11-0.59) K/uL Eos # (Auto) 0.16 (0-0.5) K/uL Baso # (Auto) 0.06 (0-0.2) K/uL Immature Gran # (Auto) 0.09 H (0.00-0.02) K/uL Absolute Nucleated RBC 0.05 H (0-0) K/uL Nucleated RBC % (auto) 0.7 % Anisocytosis Present Echinocytes 2+ PT (9.0-12.0) Seconds INR (0.9-1.1) ABG pH (7.35-7.45) ABG pCO2 (35-46) mmHg ABG pO2 (80-95) mmHg ABG HCO3 (19-24) mmol/L ABG O2 Saturation (90-95) % ABG Base Excess (-9-1.8) mEq/L Jerson Test (Pos) Barometric Pressure mm/Hg Oxygen Given Sodium 142 (136-145) mmol/L Potassium 4.0 (3.5-5.1) mmol/L Chloride 113 H (98-107) mmol/L Carbon Dioxide 19 L (21-32) mmol/L Anion Gap 10.0 (3-11) BUN 40 H (7-18) mg/dl Creatinine 2.00 H (0.6-1.4) mg/dl Est Cr Clr Drug Dosing Not Reportable Est GFR ( Amer) 33.5 ml/min Est GFR (Non-Af Amer) 28.9 ml/min BUN/Creatinine Ratio 19.8 (10-20) Glucose 131 H (70-99) mg/dl Lactate Calcium 8.9 (8.5-10.1) mg/dl Magnesium 2.1 (1.8-2.4) mg/dl Total Bilirubin 3.7 H (0.2-1) mg/dl AST 65 H (15-37) U/L ALT 70 (12-78) U/L Alkaline Phosphatase 128 H (45-117) U/L Troponin I 0.095 H* (0-0.045) ng/ml NT-Pro-B Natriuret Pep 4582 H (0-1800) pg/ml Total Protein 6.6 (6.4-8.2) gm/dl Albumin 1.9 L (3.4-5.0) gm/dl Globulin 4.7 H (2.5-4.0) gm/dl Albumin/Globulin Ratio 0.4 L (0.9-2) Lipase 226 (73-393) U/L Procalcitonin < 0.05 (0-0.5) ng/ml TSH 4.930 H (0.300-4.500) uIu/ml Free T4 0.49 L (0.8-1.6) ng/dl COVID-19 Eval Order SARS-CoV-2 (PCR) (Negative) 12/24/20 12/24/20 12/24/20 Range/Units 20:12 20:12 21:19 WBC (4.8-10.8) K/uL RBC (4.7-6.1) M/uL Hgb (14.0-18.0) g/dL Hct (42-52) % MCV (80-100) fL MCH (25-34) pg MCHC (32-36) g/dL RDW Std Deviation (36.4-46.3) fL RDW Coeff of Osito (11.5-14.5) % Plt Count (130-400) K/uL MPV (7.4-10.4) fL Immature Gran % (Auto) % Neut % (Auto) % Lymph % (Auto) % Mclean % (Auto) % Eos % (Auto) % Baso % (Auto) % Neut # (Auto) (1.4-6.5) K/uL Lymph # (Auto) (1.2-3.4) K/uL Mclean # (Auto) (0.11-0.59) K/uL Eos # (Auto) (0-0.5) K/uL Baso # (Auto) (0-0.2) K/uL Immature Gran # (Auto) (0.00-0.02) K/uL Absolute Nucleated RBC (0-0) K/uL Nucleated RBC % (auto) % Anisocytosis Echinocytes PT (9.0-12.0) Seconds INR (0.9-1.1) ABG pH 7.43 (7.35-7.45) ABG pCO2 31 L (35-46) mmHg ABG pO2 119 H (80-95) mmHg ABG HCO3 20 (19-24) mmol/L ABG O2 Saturation 98.6 H (90-95) % ABG Base Excess -3.4 (-9-1.8) mEq/L Jerson Test Pos (Pos) Barometric Pressure 735.2 mm/Hg Oxygen Given 8L Sodium (136-145) mmol/L Potassium (3.5-5.1) mmol/L Chloride (98-107) mmol/L Carbon Dioxide (21-32) mmol/L Anion Gap (3-11) BUN (7-18) mg/dl Creatinine (0.6-1.4) mg/dl Est Cr Clr Drug Dosing Est GFR ( Amer) ml/min Est GFR (Non-Af Amer) ml/min BUN/Creatinine Ratio (10-20) Glucose (70-99) mg/dl Lactate Cancelled 1.4 Calcium (8.5-10.1) mg/dl Magnesium (1.8-2.4) mg/dl Total Bilirubin (0.2-1) mg/dl AST (15-37) U/L ALT (12-78) U/L Alkaline Phosphatase (45-117) U/L Troponin I (0-0.045) ng/ml NT-Pro-B Natriuret Pep (0-1800) pg/ml Total Protein (6.4-8.2) gm/dl Albumin (3.4-5.0) gm/dl Globulin (2.5-4.0) gm/dl Albumin/Globulin Ratio (0.9-2) Lipase (73-393) U/L Procalcitonin (0-0.5) ng/ml TSH (0.300-4.500) uIu/ml Free T4 (0.8-1.6) ng/dl COVID-19 Eval Order SARS-CoV-2 (PCR) (Negative) Administered Medications Vancomycin HCl 1,500 mg/ (Sodium Chloride) 530 mls @ 200 mls/hr IV NOW ONE Stop: 12/24/20 22:44 Last Admin: 12/24/20 20:52 Dose: 200 mls/hr Documented by: [id number] Discontinued Medications Furosemide (Furosemide 40 Mg/4 Ml Vial) 40 mg IV NOW STA Stop: 12/24/20 21:15 Last Admin: 12/24/20 21:36 Dose: 40 mg Documented by: [id number] Cefepime HCl (Maxipime) 2,000 mg in 20 mls @ 5 mls/min IV NOW STA; Protocol Stop: 12/24/20 21:16 Last Admin: 12/24/20 21:36 Dose: 5 mls/min Documented by: [id number] Imaging Data Radiologist's Impression: Chest X-Ray 12/24/20 19:53 SINGLE VIEW CHEST CLINICAL HISTORY: Dyspnea FINDINGS: An AP, portable, upright chest radiograph is compared to study dated 11/30/2020 and correlated with chest CT dated 11/23/2020. A left PICC line is unchanged in position. The heart is enlarged noting atherosclerotic calcificat ion of the thoracic aorta. The pulmonary vasculature is noncongested. There are layering pleural effusions with bibasilar consolidation. No pneumothorax is seen. The skeletal structures are osteopenic. The bony thorax is grossly intact. Advanced arthritic change is noted in the shoulders. IMPRESSION: 1. Cardiomegaly without radiographic evidence of congestive failure. 2. There are layering pleural effusions with bibasilar consolidation. These have increased in size from recent prior study. ACT 112: Negative or not required by law. Electronically signed by: Jd Nieves M.D. 12/24/2020 8:47 PM Discharge Plan Visit Data Chief Complaint: Shortness of Breath/Dyspnea Stated Complaint: SOB ED Provider: Fran Meadows Discharge Problem: Acute respiratory failure with hypoxia, Acute CHF (congestive heart failure), Afib Patient Disposition: Admitted As Inpatient Forms Stand Alone Forms: My [facility] Prescriptions Prescriptions: No Action allopurinol 300 mg tablet 300 mg PO QAM RF: 0 esomeprazole magnesium 40 mg capsule,delayed release(DR/EC) 40 mg PO QAM RF: 0 Eliquis 5 mg tablet 5 mg PO BID Qty: 60 RF: 3 mirtazapine [Remeron] 15 mg tablet 15 mg PO DAILY RF: 0 docusate sodium [Colace] 100 mg capsule 100 mg PO BID RF: 0 metoprolol succinate 25 mg tablet extended release 24 hr 12.5 mg PO BID RF: 0 fluoxetine 10 mg capsule 10 mg PO QAM RF: 0 ferrous sulfate 325 mg (65 mg iron) tablet 325 mg PO BID Qty: 60 RF: 0 nafcillin 2 gram recon soln 2 g IV Q4H 42 Days Qty: 252 RF: 0 azithromycin 250 mg Tablet 250 mg PO DAILY RF: 0 azithromycin 500 mg Tablet 500 mg PO .DAILY X1 RF: 0 potassium chloride [Klor-Con M20] 20 mEq tablet,ER particles/crystals 20 meq PO BID RF: 0 acetaminophen [Tylenol] 325 mg Tablet 650 mg PO Q6H MDD 3G PRN (Reason: Fever Or Pain) RF: 0 Referrals Referrals: [facility] [Primary Care Provider] - Discharge Problem: Acute CHF (congestive heart failure) Qualifiers: Heart failure type: diastolic Qualified Code(s): I50.31 - Acute diastolic (congestive) heart failure Afib Qualifiers: Atrial fibrillation type: unspecified Qualified Code(s): I48.91 - Unspecified atrial fibrillation
[2020-12-24 20:23] LABS: Basophils # (auto) 0.06 K/uL (0-0.2); Basophils % (auto) 0.7 %; Eosinophils # (auto) 0.16 K/uL (0-0.5); Eosinophils % (auto) 1.9 %; Hematocrit (blood only) 38.2 % (42-52); Hemoglobin 13.1 g/dL (14.0-18.0); Immature Granulocytes # (auto) 0.09 K/uL (0.00-0.02); Immature Granulocytes % (auto) 1.1 %; Lymphocytes # (auto) 1.37 K/uL (1.2-3.4); Lymphocytes % (auto) 16.4 %; Mean Corpuscular Hemoglobin 35.8 pg (25-34); Mean Corpuscular Hgb Conc 34.3 g/dL (32-36); Mean Corpuscular Volume 104.4 fL (80-100); Mean Platelet Volume 10.2 fL (7.4-10.4); Monocytes # (auto) 0.66 K/uL (0.11-0.59); Monocytes % (auto) 7.9 %; Neutrophils # (auto) 5.99 K/uL (1.4-6.5); Nucleated RBC # (auto) 0.05 K/uL (0-0); Nucleated RBC % (auto) 0.7 %; Platelet Count 173 K/uL (130-400); RDW Coefficient of Variation 20.4 % (11.5-14.5); Red Blood Count 3.66 M/uL (4.7-6.1); White Blood Count 8.33 K/uL (4.8-10.8)
[2020-12-24 20:31] LABS: INR 1.5 (0.9-1.1); Prothrombin Time 14.7 Seconds (9.0-12.0)
[2020-12-24 20:32] LABS: Base Excess ABG -3.4 mEq/L (-9-1.8); HCO3 ABG 20 mmol/L (19-24); Oxygen Saturation ABG 98.6 % (90-95); PCO2 ABG 31 mmHg (35-46); PO2 ABG 119 mmHg (80-95); pH ABG 7.43 (7.35-7.45)
[2020-12-24 20:33] LABS: Allen Test Pos (Pos)
[2020-12-24 20:43] LABS: Alanine Aminotransferase 70 U/L (12-78); Albumin Level 1.9 gm/dl (3.4-5.0); Aspartate Aminotransferase 65 U/L (15-37); BUN Creatinine Ratio 19.8 (10-20); Blood Urea Nitrogen 40 mg/dl (7-18); Calcium 8.9 mg/dl (8.5-10.1); Carbon Dioxide 19 mmol/L (21-32); Chloride 113 mmol/L (98-107); Est GFR (African American) 33.5 ml/min; Est GFR (Non-African American) 28.9 ml/min; Glucose 131 mg/dl (70-99); Lipase 226 U/L (73-393); Magnesium 2.1 mg/dl (1.8-2.4); Sodium 142 mmol/L (136-145)
--- NOTE | 2020-12-24 20:49 | XRay Report ---
SINGLE VIEW CHEST CLINICAL HISTORY: Dyspnea FINDINGS: An AP, portable, upright chest radiograph is compared to study dated 11/30/2020 and correlat ed with chest CT dated 11/23/2020. A left PICC line is unchanged in position. The heart is enlarged no ting atherosclerotic calcification of the thoracic aorta. The pulmonary vasculature is noncongested. There are layering pleural effusions with bibasilar consolidation. No pneumothorax is seen. The skele earl structures are osteopenic. The bony thorax is grossly intact. Advanced arthritic change is noted in the shoulders. IMPRESSION: 1. Cardiomegaly without radiographic evidence of congestive failure. 2. There are layering pleural effusions with bibasilar consolidation. These have increased in size fr om recent prior study. ACT 112: Negative or not required by law. Electronically signed by: Jd Nieves M.D. 12/24/2020 8:47 PM
[2020-12-24 20:57] LABS: Anisocytosis Present; Echinocytes 2+
[2020-12-24 20:58] LABS: Albumin Globulin Ratio 0.4 (0.9-2); Alkaline Phosphatase 128 U/L (45-117); Bilirubin,Total 3.7 mg/dl (0.2-1); Globulin 4.7 gm/dl (2.5-4.0); NT Pro B Type Natriuretic Pept 4582 pg/ml (0-1800); Total Protein 6.6 gm/dl (6.4-8.2); Troponin I 0.095 ng/ml (0-0.045)
[2020-12-24] MEDS ORDERED: CEFEPIME 2,000 MG/20 ML VIAL IV STA (21:13)
[2020-12-24] MEDS ORDERED: FUROSEMIDE 40 MG/4 ML VIAL IV STA ×2 (21:14→23:10)
[2020-12-24 21:20] LABS: T4 Free Thyroxine 0.49 ng/dl (0.8-1.6)
--- NOTE | 2020-12-24 22:33 | History & Physical Report ---
Date of Service December 24, 2020 Assessment & Plan (1) Acute respiratory failure with hypoxia: Plan: 89 yo medically complex male admitted for acute respiratory failure with hypoxia requiring cpap. 1. Acute Respiratory Failure with Hypoxia 2/2 CHF Exacerbation - ABG 7.43/31/119/20 on 8LO2 - CPAP for O2 > 90, wean as able. No home O2 requirement. - pulm consult for evaluation of thoracentesis of pleural effusions - likely due to CHF exacerbation, BNP 4582 - usually is on 40 mg PO lasix every few days. received 40 IV in ER, scheduled for 40 IV daily. - monitor I/O - rayo - low suspicion for pneumonia given negative procal, afebrile, CT Chest. discontinued vanc/cefepime. 2. hx Bacteremia - ongoing treatment for MSSA - Nafcillin 2g IV Q4h - blood cultures pending 3. Afib - eliquis redosed for weight, cr, age - rate controlled with metoprolol ER Protein calorie malnutrition - albumin 1.9 - 25g IV albumin to help reduce third spacing of fluid with exacerbation Chronic Conditions Anx/Dep: cont fluoxetine, mirtazipine, Constipation: con docusate, prn miralax Gout: cont allopurinol GERD: cont pantoprazole CKD: GFR 28, Cr 2, hold NSAIDs, renally dose medications. BMP daily. DVT ppx: on eliquis FEN/GI: heart healthy, pantoprazole Dispo: telemetry Code Status: full code (2) Bacteremia: (3) GERD (gastroesophageal reflux disease): (4) Paroxysmal A-fib: (5) Bilateral edema of lower extremity: (6) Atrial fibrillation, permanent: (7) Hypertension: (8) Anemia: (9) Benign prostatic hyperplasia with urinary obstruction: (10) Dyslipidemia: History of Present Illness Primary Care Provider: [facility] 89yo M recently discharged on 11/30 for MSSA bacteremia, resident at [facility] with hx Afib, HFrEF (45-50%), acalculous cholecystitis, HLD, BPH, CKD3, Bladder cancer, HTN, Anemia brought to ER for increased swelling in hands and feet. Patient states that he doesn't notice anything different other than the swelling. denies any SOB, CP, fevers, chills. He denies knowing that he has heart failure and says that he remembers "walking around a room in the hospital" during his last admission. He denies being on a salt restricted diet at [facility] and says his daily intake frequently includes soup, chips, lunch meat and pastas. Allergies Allergy/AdvReac Type Severity Reaction Status Date / Time No Known Allergies Allergy Unknown Verified 12/24/20 21:40 Home Medications Medication Instructions Recorded Confirmed Type allopurinol 300 mg tablet 300 mg PO QAM tab 01/21/19 12/24/20 History esomeprazole magnesium 40 mg 40 mg PO QAM cap 01/21/19 12/24/20 History capsule,delayed release apixaban 5 mg tablet (Eliquis) 5 mg PO BID #60 tab 07/26/20 12/24/20 Rx ferrous sulfate 325 mg (65 mg 325 mg PO BID #60 tab 10/15/20 12/24/20 Rx iron) tablet fluoxetine 10 mg capsule 10 mg PO QAM 10/15/20 12/24/20 History metoprolol succinate 25 mg 12.5 mg PO BID tab 10/15/20 12/24/20 History tablet,extended release 24 hr docusate sodium 100 mg capsule 100 mg PO BID 11/15/20 12/24/20 History (Colace) mirtazapine 15 mg tablet (Remeron) 15 mg PO DAILY 11/15/20 12/24/20 History nafcillin 2 gram intravenous 2 g IV Q4H 42 Days #252 ea 11/30/20 12/24/20 Rx solution acetaminophen 325 mg tablet 650 mg PO Q6H PRN MDD 3G 12/24/20 12/24/20 History (Tylenol) azithromycin 250 mg tablet 250 mg PO DAILY 12/24/20 12/24/20 History azithromycin 500 mg tablet 500 mg PO .DAILY X1 12/24/20 12/24/20 History potassium chloride 20 mEq 20 meq PO BID 12/24/20 12/24/20 History tablet,extended release(part/cryst) (Marquis M) Past Med/Surg History Medical History (Updated 12/25/20 @ 01:21 by Aarti New MD) Abdominal ascites Abnormal cystoscopy Actinic keratosis Atrial fibrillation with rapid ventricular response (03/2020) Bacteremia Bilateral nephrolithiasis (2005) Bilateral pleural effusion Bladder cancer (2016) Elevated troponin Per cardiology note 08/05/20: (2) Elevated troponin: -mild elevation likely a supply demand mismatch and not coronary ischemia. 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 -did have elevated heart rate and low blood pressure while in the emergency room. GI bleed Gout Hearing loss Hematuria (2019) History of basal cell carcinoma (2016) Hypercholesteremia Leg edema Male erectile disorder of organic origin Valvular heart disease Vitamin D deficiency Surgical History H/O pyloroplasty H/O shoulder surgery Hx laparoscopic cholecystectomy (08/06/20) Laparoscopic Cholecystectomy with Cholangiogram, Lysis of Adhesions Dr. 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 Required: No Beliefs That Will Affect Care: None marital status: Current Living Situation: Spouse Current Living Situation Comment: lives w/ current occupational status: retired How many Children do You have: 2 Other Information That Helps Us Care for You: No Feels Safe at Home: Yes Safety Concerns: Feels Safe At This Time Assistive Devices: BiPap, Glasses, Hearing Aid - Bilateral, Oxygen - Continuous and Walker Review of Systems Constitutional: no fever, no chills, no sweats and no fatigue Eyes: no blind spots and no discharge Ear, Nose, Mouth, Throat: no hearing loss and no nasal congestion Respiratory: no cough and no dyspnea Cardiovascular: + edema; no chest pain and no dyspnea on exertion Gastrointestinal: no abdominal pain, no nausea, no vomiting, no constipation, no diarrhea/loose stools and no blood in stools Musculoskeletal: no joint pain and no myalgia Neurologic: no tingling, no numbness and no headache(s) Endocrine: no fatigue Physical Exam Constitutional: well developed and well nourished; no acute distress Respiratory: + labored breathing and + cough; no respiratory distress and + not able to speak in complete sentence Cardiovascular: Rate/Rhythm: regular rate and + irregularly irregular Heart Sounds: + murmur Vessels: no JVD Extremities: + pedal edema (fluid seeping from skin) and + edema (3+ pitting to knees bilaterally, 1-2+ to hips BL) Gastrointestinal (Abdomen): Inspection/Auscultation: abdomen normal to inspection; abdomen not distended Percussion/Palpation: abdomen soft; abdomen nontender Genitourinary: rayo in place Results & Data Results [facility] Vital Signs (Past 12 Hours) Vital Signs Temp Pulse Resp BP Pulse Ox 12/24/20 22:08 93 H 16 99 12/24/20 22:00 93 H 15 126/91 100 12/24/20 21:30 102 H 20 118/90 89 L 12/24/20 21:00 108 H 20 116/96 97 12/24/20 20:30 105 H 22 127/100 95 12/24/20 20:00 93 H 20 129/104 H 98 12/24/20 19:56 37.1 C 107 H 22 110/87 886 H 12/24/20 19:41 93 H 26 H 115/97 98 Laboratory Results Laboratory Results WBC 8.33 K/uL (4.8-10.8) 12/24/20 20:12 RBC 3.66 M/uL (4.7-6.1) L 12/24/20 20:12 Hgb 13.1 g/dL (14.0-18.0) L 12/24/20 20:12 Hct 38.2 % (42-52) L 12/24/20 20:12 MCV 104.4 fL (80-100) H 12/24/20 20:12 MCH 35.8 pg (25-34) H 12/24/20 20:12 MCHC 34.3 g/dL (32-36) 12/24/20 20:12 RDW Std Deviation 73.0 fL (36.4-46.3) H 12/24/20 20:12 RDW Coeff of [place] 20.4 % (11.5-14.5) H 12/24/20 20:12 Plt Count 173 K/uL (130-400) 12/24/20 20:12 MPV 10.2 fL (7.4-10.4) 12/24/20 20:12 Immature Gran % (Auto) 1.1 % 12/24/20 20:12 Neut % (Auto) 72.0 % 12/24/20 20:12 Lymph % (Auto) 16.4 % 12/24/20 20:12 [place] % (Auto) 7.9 % 12/24/20 20:12 Eos % (Auto) 1.9 % 12/24/20 20:12 Baso % (Auto) 0.7 % 12/24/20 20:12 Neut # (Auto) 5.99 K/uL (1.4-6.5) 12/24/20 20:12 Lymph # (Auto) 1.37 K/uL (1.2-3.4) 12/24/20 20:12 [place] # (Auto) 0.66 K/uL (0.11-0.59) H 12/24/20 20:12 Eos # (Auto) 0.16 K/uL (0-0.5) 12/24/20 20:12 Baso # (Auto) 0.06 K/uL (0-0.2) 12/24/20 20:12 Immature Gran # (Auto) 0.09 K/uL (0.00-0.02) H 12/24/20 20:12 Absolute Nucleated RBC 0.05 K/uL (0-0) H 12/24/20 20:12 Nucleated RBC % (auto) 0.7 % 12/24/20 20:12 Anisocytosis Present 12/24/20 20:12 Echinocytes 2+ 12/24/20 20:12 PT 14.7 Seconds (9.0-12.0) H 12/24/20 20:12 INR 1.5 (0.9-1.1) H 12/24/20 20:12 ABG pH 7.43 (7.35-7.45) 12/24/20 20:12 ABG pCO2 31 mmHg (35-46) L 12/24/20 20:12 ABG pO2 119 mmHg (80-95) H 12/24/20 20:12 ABG HCO3 20 mmol/L (19-24) 12/24/20 20:12 ABG O2 Saturation 98.6 % (90-95) H 12/24/20 20:12 ABG Base Excess -3.4 mEq/L (-9-1.8) 12/24/20 20:12 Jerson Test Pos (Pos) 12/24/20 20:12 Barometric Pressure 735.2 mm/Hg 12/24/20 20:12 Oxygen Given 8L 12/24/20 20:12 Sodium 142 mmol/L (136-145) 12/24/20 20:12 Potassium 4.0 mmol/L (3.5-5.1) 12/24/20 20:12 Chloride 113 mmol/L (98-107) H 12/24/20 20:12 Carbon Dioxide 19 mmol/L (21-32) L 12/24/20 20:12 Anion Gap 10.0 (3-11) 12/24/20 20:12 BUN 40 mg/dl (7-18) H 12/24/20 20:12 Creatinine 2.00 mg/dl (0.6-1.4) H 12/24/20 20:12 Est Cr Clr Drug Dosing Not Reportable 12/24/20 20:12 Est GFR ( Amer) 33.5 ml/min 12/24/20 20:12 Est GFR (Non-Af Amer) 28.9 ml/min 12/24/20 20:12 BUN/Creatinine Ratio 19.8 (10-20) 12/24/20 20:12 Glucose 131 mg/dl (70-99) H 12/24/20 20:12 Lactate 1.4 mmol/L (0.4-2.0) 12/24/20 21:19 Calcium 8.9 mg/dl (8.5-10.1) 12/24/20 20:12 Magnesium 2.1 mg/dl (1.8-2.4) 12/24/20 20:12 Total Bilirubin 3.7 mg/dl (0.2-1) H 12/24/20 20:12 AST 65 U/L (15-37) H 12/24/20 20:12 ALT 70 U/L (12-78) 12/24/20 20:12 Alkaline Phosphatase 128 U/L (45-117) H 12/24/20 20:12 Troponin I 0.095 ng/ml (0-0.045) H* 12/24/20 20:12 NT-Pro-B Natriuret Pep 4582 pg/ml (0-1800) H 12/24/20 20:12 Total Protein 6.6 gm/dl (6.4-8.2) 12/24/20 20:12 Albumin 1.9 gm/dl (3.4-5.0) L 12/24/20 20:12 Globulin 4.7 gm/dl (2.5-4.0) H 12/24/20 20:12 Albumin/Globulin Ratio 0.4 (0.9-2) L 12/24/20 20:12 Lipase 226 U/L (73-393) 12/24/20 20:12 Procalcitonin < 0.05 ng/ml (0-0.5) 12/24/20 20:12 TSH 4.930 uIu/ml (0.300-4.500) H 12/24/20 20:12 Free T4 0.49 ng/dl (0.8-1.6) L 12/24/20 20:12 Urine Color Yellow 12/24/20 22:21 Urine Appearance Clear (Clear) 12/24/20 22:21 Urine pH 6.0 (4.5-7.5) 12/24/20 22:21 Ur Specific [place] 1.012 (1.000-1.030) 12/24/20 22:21 Urine Protein Trace (Negative) H 12/24/20 22:21 Urine Glucose (UA) Negative (Negative) 12/24/20 22:21 Urine Ketones Negative (Negative) 12/24/20 22:21 Urine Blood Trace (Negative) H 12/24/20 22:21 Urine Nitrite Negative (Negative) 12/24/20 22:21 Urine Bilirubin Negative (Negative) 12/24/20 22:21 Urine Urobilinogen Negative (Negative) 12/24/20 22:21 Ur Leukocyte Esterase Negative (Negative) 12/24/20 22:21 Urine WBC (Auto) 1-5 /hpf (0-5) 12/24/20 22:21 Urine RBC (Auto) 0-4 /hpf (0-4) 12/24/20 22:21 U Hyaline Cast (Auto) 5-10 /lpf (0-5) H 12/24/20 22:21 U Epithel Cells (Auto) >30 /lpf (0-5) H 12/24/20 22:21 Urine Bacteria (Auto) 1+ (Negative) H 12/24/20 22:21 Ur Renal Epithelial Cell Not Reportable 12/24/20 22:21 COVID-19 Eval Order Covid19 at [facility] 12/24/20 20:07 SARS-CoV-2 (PCR) NEGATIVE (Negative) 12/24/20 20:07 Impressions Chest X-Ray 12/24/20 19:53 SINGLE VIEW CHEST CLINICAL HISTORY: Dyspnea FINDINGS: An AP, portable, upright chest radiograph is compared to study dated 11/30/2020 and correlated with chest CT dated 11/23/2020. A left PICC line is unchanged in position. The heart is enlarged noting atherosclerotic calcification of the thoracic aorta. The pulmonary vasculature is noncongested. There are layering pleural effusions with bibasilar consolidation. No pneumothorax is seen. The skeletal structures are osteopenic. The bony thorax is grossly intact. Advanced arthritic change is noted in the shoulders. IMPRESSION: 1. Cardiomegaly without radiographic evidence of congestive failure. 2. There are layering pleural effusions with bibasilar consolidation. These have increased in size from recent prior study. ACT 112: Negative or not required by law. Electronically signed by: Jd Nieves M.D. 12/24/2020 8:47 PM Medications Administered Albumin Human (Albumin 25%) 12.5 gm in 50 mls @ 50 mls/hr IV Q1H MEJIA Stop: 12/25/20 02:59 Last Admin: 12/25/20 01:28 Dose: 50 mls/hr Documented by: [id number] Infusion: 12/25/20 01:28 Dose: 50 mls/hr Documented by: [id number] Admin: 12/25/20 00:49 Dose: 50 mls/hr Documented by: [id number] Discontinued Medications Furosemide (Furosemide 40 Mg/4 Ml Vial) 40 mg IV NOW STA Stop: 12/24/20 21:15 Last Admin: 12/24/20 21:36 Dose: 40 mg Documented by: [id number] Vancomycin HCl 1,500 mg/ (Sodium Chloride) 530 mls @ 200 mls/hr IV NOW ONE Stop: 12/24/20 22:44 Last Infusion: 12/25/20 00:05 Dose: 0 mls/hr Documented by: [id number] Admin: 12/24/20 20:52 Dose: 200 mls/hr Documented by: [id number] Cefepime HCl (Maxipime) 2,000 mg in 20 mls @ 5 mls/min IV NOW STA; Protocol Stop: 12/24/20 21:16 Last Admin: 12/24/20 21:36 Dose: 5 mls/min Documented by: [id number] Morphine Sulfate (Morphine Sulfate 2 Mg/Ml Carp) 0.5 mg IV NOW STA Stop: 12/24/20 23:11 Last Admin: 12/24/20 23:33 Dose: 0.5 mg Documented by: [id number] Supervising Physician Co-Signing Physician Notes Attending addendum: I have physically seen this patient, have supervised the medical residents activities, and agree with the H&P unless as otherwise noted. Assessment and Plan: Acute respiratory failure with hypoxia/bilateral pleural effusions, possibly parapneumonic- The patient will be admitted to telemetry for serial cardiac enzymes, serial EKG's, cardiac rhythm monitoring and a 2-D echocardiogram with Dopplers. Received Lasix 40 mg IV in the ED, and will continue 40 mg IV every morning Serial BMP and magnesium levels Rayo catheter If parapneumonic, may be related to MSSA bacteremia. Continue nafcillin 2 g IV every 4 hours Consulting pulmonology Atrial fibrillation- continue Eliquis and metoprolol succinate ER Remaining orders and notations as noted Resident Activity Tracking Resident Involvement: Resident Care Provided Care Provided: Adult Hospital Medicine (1) Anemia Anemia type: unspecified type Qualified Code(s): D64.9 - Anemia, unspecified
[2020-12-24 22:34] LABS: Appearance Urine Clear (Clear); Bacteria Urine Automated 1+ (Negative); Bilirubin Urine Negative (Negative); Blood Urine Trace (Negative); Color Urine Yellow; Epithelial Cell Urine Auto >30 /lpf (0-5); Glucose Urine UA Negative (Negative); Ketones Urine Negative (Negative); Leukocyte Esterase Urine Negative (Negative); Nitrite Urine Negative (Negative); Protein Urine Trace (Negative); RBC Urine Automated 0-4 /hpf (0-4); Specific Gravity Urine 1.012 (1.000-1.030); Urobilinogen Urine Negative (Negative)
[2020-12-24] MEDS ORDERED: MoRPHine SULFATE 2 MG/ML CARP IV STA (23:10)
[2020-12-24] MEDS ORDERED: ONDANSETRON INJ 2 MG/ML 2 ML VIAL IV PRN (23:55)
[2020-12-24] MEDS ORDERED: POLYETHYLENE (MIRALAX) 17 GM PACK PO PRN (23:55)
[2020-12-24] MEDS ORDERED: MAGNESIUM HYDROXIDE SUSP 30 ML UDC PO PRN (23:55)
[2020-12-24] MEDS ORDERED: ALUMINUM/MAGNESIUM SUSP 30 ML UDC PO PRN (23:55)
[2020-12-25] MEDS: ALBUMIN 25% 12.5 GM/50 ML VIAL IV SCH ×2 (00:49→01:28)
[2020-12-25] MEDS: NAFCILLIN SODIUM 2,000 MG in DEXTROSE 5% 100 ML IV SCH ×6 (02:29→20:52)
[2020-12-25 06:28] LABS: Basophils # (auto) 0.04 K/uL (0-0.2); Basophils % (auto) 0.6 %; Eosinophils # (auto) 0.23 K/uL (0-0.5); Eosinophils % (auto) 3.2 %; Hematocrit (blood only) 35.4 % (42-52); Hemoglobin 11.8 g/dL (14.0-18.0); Immature Granulocytes # (auto) 0.07 K/uL (0.00-0.02); Lymphocytes # (auto) 1.42 K/uL (1.2-3.4); Lymphocytes % (auto) 19.9 %; Mean Corpuscular Hemoglobin 34.7 pg (25-34); Mean Corpuscular Hgb Conc 33.3 g/dL (32-36); Mean Corpuscular Volume 104.1 fL (80-100); Mean Platelet Volume 9.9 fL (7.4-10.4); Monocytes # (auto) 0.71 K/uL (0.11-0.59); Neutrophils # (auto) 4.65 K/uL (1.4-6.5); Neutrophils % (auto) 65.3 %; Nucleated RBC # (auto) 0.03 K/uL (0-0); Nucleated RBC % (auto) 0.4 %; Platelet Count 161 K/uL (130-400); RDW Coefficient of Variation 20.4 % (11.5-14.5); RDW Standard Deviation 73.7 fL (36.4-46.3); White Blood Count 7.12 K/uL (4.8-10.8)
[2020-12-25 06:59] LABS: BUN Creatinine Ratio 18.4 (10-20); Calcium 8.6 mg/dl (8.5-10.1); Creatinine Clr Calc Pharmacy 28.8 ml/min; Est GFR (African American) 33.3 ml/min; Est GFR (Non-African American) 28.8 ml/min; Potassium 3.5 mmol/L (3.5-5.1)
[2020-12-25 07:00] LABS: Anisocytosis Present; Echinocytes 1+
--- NOTE | 2020-12-25 07:43 | CT Scan Report ---
ABDOMEN AND PELVIS CT WITHOUT CONTRAST CT DOSE: HISTORY: Left-sided abdominal pain. TECHNIQUE: Multiaxial CT images of the abdomen and pelvis were performed without contrast. A dose lo wering technique was utilized adhering to the principles of ALARA. COMPARISON STUDY: Abdomen and pelvis CT 11/19/2020. FINDINGS: Moderate bilateral pleural effusions with associated atelectasis within the lungs posterior ly. This is better appreciated on the same day chest CT. The heart is mildly enlarged. No pneumoperit oneum. No pneumatosis. There is a left total hip arthroplasty. No acute fractures within the visualiz ed osseous structures. Severe body wall edema. Cholecystectomy. The unenhanced liver, spleen, adrenal glands, and pancreas are unremarkable. There are multiple punctate bilateral renal calculi. No urete ral calculi. No hydronephrosis. The bladder is partially obscured by the left hip prosthesis. There i s a small right posterior bladder diverticulum, unchanged. Small amount of ascites is present. Calcif ied plaque within the normal caliber abdominal aorta. No retroperitoneal lymphadenopathy. Colonic div erticulosis. No evidence for acute diverticulitis. Suboptimal evaluation for bowel pathology due to t he lack of intravenous and oral contrast. However, there is no definite bowel wall thickening or obst ruction. Normal appendix. Small fluid containing left inguinal hernia. IMPRESSION: 1. Progressive fluid overload with increase in size in the bilateral pleural effusions, severe body w all edema, and a small amount of ascites. 2. No definite bowel wall thickening or obstruction. 3. Colonic diverticulosis. No evidence for acute diverticulitis. 4. Bilateral nephrolithiasis. No hydronephrosis. ACT 112: Negative or not required by law. Electronically signed by: Garland Prado M.D. 12/25/2020 7:42 AM
--- NOTE | 2020-12-25 08:33 | CT Scan Report ---
CT chest diagnostic wo con CT DOSE: 1422.85 mGy.cm CLINICAL HISTORY: 89 years-old Male with sob, ?chf vs pna. Acute shortness of breath TECHNIQUE: Multiaxial CT images of the chest were performed without contrast. A dose lowering techni que was utilized adhering to the principles of ALARA. COMPARISON: CT abdomen and pelvis of same day and also 08/04/2020, 03/15/2014, chest CT 11/23/2020 FINDINGS: Heterogeneous thyroid. No adenopathy. Moderate cardiomegaly. Moderate to extensive coronary artery calcifications. Atherosclerosis of the aorta with unchanged ectasia measuring 3.9 cm. Dilated pulmonary artery measuring 3.5 cm suggestive of pulmonary artery hypertension. Moderate layering ple ural effusions. Dependent bibasilar consolidation with groundglass densities. No pneumothorax. Mixed groundglass and consolidative subpleural opacity of the right upper lobe on image 142 of series 6 is unchanged measuring 1.2 x 0.9 cm. Ovoid 3.5 cm circumscribed consolidative opacity of the medial segm ent right middle lobe appears similar dating back to 08/04/2020 exam. A consolidative opacity was note d within this distribution on the 2013 study which measured 1.8 cm. No overt pulmonary edema. The magalys tral airways are patent. Generalized body wall edema with upper abdominal ascites. Severe osteoarthritis of the shoulders, rig ht greater than left. Degenerative changes of the spine. IMPRESSION: 1. Cardiomegaly with fluid overload including moderate pleural effusions with anasarca and abdominal ascites. 2. Dependent bibasilar consolidation suggests compressive atelectasis. 3. Subsolid subpleural nodule of the right upper lobe measuring 1.2 x 0.9 cm is unchanged from the exam. A 3-6 month follow-up chest CT is recommended. 4. No adenopathy. 5. Unchanged round atelectasis of the right middle lobe. ACT 112: Negative or not required by law. Electronically signed by: Gabriel Beltran M.D. 12/25/2020 8:32 AM
[2020-12-25] MEDS: FUROSEMIDE 40 MG in SYRINGE 0 ML IV SCH (08:42)
[2020-12-25] MEDS: POTASSIUM CHLORIDE CRTAB 20 MEQ TABCR PO SCH ×2 (08:43→20:51)
[2020-12-25] MEDS: DOCUSATE SODIUM 100 MG CAP PO SCH ×2 (08:43→20:51)
[2020-12-25] MEDS: METOPROLOL SUCC 25MG EXT REL TAB PO SCH ×2 (08:43→20:51)
[2020-12-25] MEDS: allopurinoL 300 MG TAB PO SCH (08:43)
[2020-12-25] MEDS: APIXABAN 2.5 MG TAB PO SCH (08:44)
[2020-12-25] MEDS: PANTOprazole 40 MG TAB PO SCH (08:44)
[2020-12-25] MEDS: FLUoxetine HCL 10 MG CAP PO SCH (08:44)
[2020-12-25] MEDS ORDERED: FUROSEMIDE 40 MG/4 ML VIAL IV SCH (09:00)
--- NOTE | 2020-12-25 10:03 | Hospitalist Progress Note ---
Date of Service December 25, 2020 Assessment & Plan (1) Acute respiratory failure with hypoxia: (2) Acute CHF (congestive heart failure): (3) Bacteremia: (4) GERD (gastroesophageal reflux disease): (5) Atrial fibrillation, permanent: (6) Hypertension: (7) Anemia: (8) Benign prostatic hyperplasia with urinary obstruction: (9) Dyslipidemia: Plan: 89 yo medically complex male admitted for acute respiratory failure with hypoxia and fluid overload 1. Fluid Overload with Protein-Calorie Malnutrition/Anasarca and CHF - Mixed clinical picture--most likely at this point from severe malnutrition/anasarca with some degree of contribution from CHF - Albumin 1.9 on admission - O2 supplementation to maintain sats above 90% - Pulmonary consult for evaluation of thoracentesis of pleural effusions on chest imaging: - suspect transudative in nature with multiple contributing etiologies, including acute on chronic HFrEF and poor nutritional status - high likelihood of recurrence after thoracentesis given uncontrolled heart failure and severe protein calorie malnutrition - Recommend continued diuresis as tolerated - follow up CXR tomorrow to trend for improvement - will re-evaluate for possible thoracentesis tomorrow pending patient's fluid status and CXR at that time - hold Eliquis for now, given the chance of proceeding with thoracentesis tomorrow - Continue Lasix 40mg IV daily--low threshold to DC if creatinine rises as most likely clinical picture due to malnutrition as above - Monitor I/O - [place] placed on admission--monitor for needs - Given 25g IV albumin on admission to help reduce third spacing of fluid - Dietary consult - Patient and updated at bedside by attending as below 2. Hx Bacteremia - ongoing treatment for MSSA - Nafcillin 2g IV Q4h - blood cultures pending 3. Afib - Eliquis on hold per pulm as above - rate controlled with metoprolol ER Chronic Conditions Anx/Dep: cont fluoxetine, mirtazapine Constipation: cont docusate, prn miralax Gout: cont allopurinol GERD: cont pantoprazole CKD: GFR 28, Cr 2, hold NSAIDs, renally dose medications. BMP daily. DVT ppx: Eliquis held for possible thoracentesis tomorrow FEN/GI: heart healthy, pantoprazole Dispo: telemetry Code Status: full code Admission and Anticipated Discharge Date Admission Date: December 24, 2020 Supervising Physician Co-Signing Physician Notes I personally examined the patient and verified all bradshaw points of history and exam, discussed case, and agree with decision making with Dr Dunbar. Eating reasonably well whenever I see him. Revisited and discussed/updated . Answered all questions to the best my ability as well. expressing concern about him not being on enough Lasix because his legs are swollen. After extensive discussions and explanations repeatedly, was able to convey that while he does have a degree of congestive heart failure, the bigger concern is his rather severe protein malnutritionunlikely anasarca from poor oncotic pressure. It took quite a few iterations to impart the importance of this, but then she started to express good understanding. Case discussed with pulmonary as well. Vitals noted, in general he is awake and alert pleasant no distress. HEENT no rmocephalic atraumatic mucous membranes moist. Breathing unlabored no accessory muscle use good effort. Skin shows no rashes no pallor or icterus. Neuro without focal deficits. Severe protein malnutrition/anasarcawhile he does have a degree of acute on chronic systolic (HFrEF) CHFhis clinical picture is much more concerning for severe protein malnutrition with anasarca that happens to include pleural effusions, rather than decompensated CHF leading to pleural effusions. We will follow closely on Lasixwith a very low threshold to DC if his creatinine continues to riseit is not clear that he is volume overloaded as much is volume poorly distributed. Encourage p.o. intake. Appreciate dietitian assistancewe will try to target upper end of calorie goals to try to help build him upp robably in the neighborhood of 2300 ideally. PT/OT eval and treat. In regards to whether or not to do a thoracentesis, discussed with pulmonary, we both harbor concerns about whether or not, and his low protein state, the thoracentesis would actually last, or if his lung space would just fill right back up. We will continue to follow how he does. In regards to his elevated creatinine, it is unclear if this represents a degree of an LASHAWN from poor forward flow from third spacing, or a progression of his CKD from his overall frailty. Follow. Otherwise as above. Results & Data Results & Data ([facility]) Vital Signs (Past 12 Hours) Vital Signs Temp Pulse Pulse Resp BP BP Pulse Ox 12/25/20 08:00 94 12/25/20 07:17 36.4 C L 93 H 93 H 17 119/86 99 12/25/20 07:15 92 H 14 97 12/25/20 04:14 36.3 C L 92 H 20 120/81 96 12/25/20 03:27 90 19 98 12/25/20 00:05 36.4 C L 93 H 20 128/98 96 12/24/20 23:00 94 H 13 136/92 94 12/24/20 22:30 94 H 23 135/90 99 12/24/20 22:08 93 H 16 99 Resident Activity Tracking Resident Involvement: Resident Care Provided Care Provided: Adult Hospital Medicine (1) Acute CHF (congestive heart failure) Heart failure type: diastolic Qualified Code(s): I50.31 - Acute diastolic (congestive) heart failure (2) Anemia Anemia type: unspecified type Qualified Code(s): D64.9 - Anemia, unspecified
--- NOTE | 2020-12-25 11:43 | Pulmonary Consultation ---
Date of Consultation December 25, 2020 Assessment & Plan (1) Acute respiratory failure with hypoxia: Fran Rhodes is an 89yo male recently discharged on 11/30 for MSSA bacteremia, resident at [facility], with PMHx that includes a-fib (on Eliquis/BB) and HFrEF (EF 45-50%) who was admitted to [facility] on 12/24 for acute hypoxic respiratory failure and acute on chronic HFrEF. We were consulted for bilateral pleural effusions. Bilateral Pleural Effusions: Hypervolemic on exam with elevated BNP; suspect transudative in nature with multiple contributing etiologies, including acute on chronic HFrEF and poor nutritional status. Has high likelihood of recurrence after thoracentesis given uncontrolled heart failure and severe protein calorie malnutrition. Recommend continued diuresis as tolerated. Will order a follow up CXR tomorrow to trend for improvement. We will re-evaluate for possible thoracentesis tomorrow pending patient's fluid status and CXR at that time. We will hold Eliquis for now, given the chance of proceeding with thoracentesis tomorrow (patient received AM dose today but we will hold it now). Strongly recommend goals of care discussion with the patient and his family, given current code status, severe malnutrition, and extensive comorbidities. Thank you for the consult. Pulmonary will continue to follow along with you. (2) Bacteremia: (3) GERD (gastroesophageal reflux disease): (4) Paroxysmal A-fib: (5) Hypertension: (6) Anemia: Anemia type: unspecified type Qualified Code(s): D64.9 - Anemia, unspecified (7) Dyslipidemia: Supervising Physician Co-Signing Physician Notes Patient seen and examined with the resident physician. Constitutional: Elderly appearing male in no apparent distress. Laying in bed. Nasal cannula in place. Eyes: Pupils are equal round and reactive to light. Conjunctivae are normal. Anicteric sclera. Ears nose, mouth and throat: Mallampati class 2. Normal posterior oropharynx. Uvula is midline. Neck: Trachea is midline. Visual inspection is normal. Respiratory: Clear to auscultation bilaterally. No use of accessory muscles. No significant clubbing noted. Cardiovascular: S3 gallop. No murmurs. 3+ pitting edema in the lower extremities. JVD present. Gastrointestinal: Normal bowel sounds, soft, nontender and nondistended. No hepatosplenomegaly noted. Musculoskeletal: No cyanosis. Weakness diffusely. Skin: No rashes, warm dry and intact. Neurologic: No obvious focal neurological deficits seen. Psychiatric: Alert and oriented x3 with a euthymic affect. Patient's pleural effusions are likely multifactorial related to CHF, malnutrition (low oncotic pressure) and CKD. Agree with IV diuretic therapy. Discussed with hospitalist team. We will hold Eliquis at this time for the possibility of a thoracentesis if his condition worsens. Continue to wean oxygen to maintain saturations of 90 to 92%. History of Present Illness Reason for Consultation: bilateral pleural effusions Requesting Physician: Dr. New Attending Physician: Tyler Ray DO History of Present Illness Fran Rhodes is an 89yo male recently discharged on 11/30 for MSSA bacteremia, resident at [facility], with PMHx that includes a-fib (on Eliquis/BB) and HFrEF (EF 45-50%) who was admitted to [facility] on 12/24 for acute hypoxic respiratory failure and acute on chronic HFrEF. Patient reports progressive LE edema and orthopnea since being discharged on 11/30. Denies SOB/cough and denies recent illnesses or fever/chills. Reports that he mostly eats soup, chips, lunch meat and pastas at [facility] and has never tried restricting salt intake. He also reports 6-8 shots of alcohol (vodka or whiskey) per day, every day, for "many, many years". Denies skipping meals or weight loss but does admit that he has never been a big eater. In the ED the patient initially required 10L/min supplemental O2 via nasal cannula but has been weaned to 4L NC as of this morning. Patient was otherwise hemodynamically stable. Laboratory evaluation was significant for INR 1.5, Albumin 1.9, Cr 2.01, BNP 4582, Troponin .095. CT C/A/P showed cardiomegaly with bilateral moderate pleural effusions, anasarca, and abdominal ascites, with chronic subsolid subpleural nodule of RUL; no cirrhosis. Patient was initially started on Vanco/Cefepime in the ED but this was stopped on admission. He was also given Lasix 40mg IV x1 and Albumin 25g x1, and started on 40mg IV daily. We were consulted for bilateral pleural effusions. Allergies Allergy/AdvReac Type Severity Reaction Status Date / Time No Known Allergies Allergy Unknown Verified 12/24/20 21:40 Home Medications Medication Instructions Recorded Confirmed Type allopurinol 300 mg tablet 300 mg PO QAM tab 01/21/19 12/24/20 History esomeprazole magnesium 40 mg 40 mg PO QAM cap 01/21/19 12/24/20 History capsule,delayed release apixaban 5 mg tablet (Eliquis) 5 mg PO BID #60 tab 07/26/20 12/24/20 Rx ferrous sulfate 325 mg (65 mg 325 mg PO BID #60 tab 10/15/20 12/24/20 Rx iron) tablet fluoxetine 10 mg capsule 10 mg PO QAM 10/15/20 12/24/20 History metoprolol succinate 25 mg 12.5 mg PO BID tab 10/15/20 12/24/20 History tablet,extended release 24 hr docusate sodium 100 mg capsule 100 mg PO BID 11/15/20 12/24/20 History (Colace) mirtazapine 15 mg tablet (Remeron) 15 mg PO DAILY 11/15/20 12/24/20 History nafcillin 2 gram intravenous 2 g IV Q4H 42 Days #252 ea 11/30/20 12/24/20 Rx solution acetaminophen 325 mg tablet 650 mg PO Q6H PRN MDD 3G 12/24/20 12/24/20 History (Tylenol) azithromycin 250 mg tablet 250 mg PO DAILY 12/24/20 12/24/20 History azithromycin 500 mg tablet 500 mg PO .DAILY X1 12/24/20 12/24/20 History potassium chloride 20 mEq 20 meq PO BID 12/24/20 12/24/20 History tablet,extended release(part/cryst) (Klor-Con M) Patient History Medical History (Updated 12/25/20 @ 01:21 by Aarti New MD) Abdominal ascites Abnormal cystoscopy Actinic keratosis Atrial fibrillation with rapid ventricular response (03/2020) Bacteremia Bilateral nephrolithiasis (2005) Bilateral pleural effusion Bladder cancer (2016) Elevated troponin Per cardiology note 08/05/20: (2) Elevated troponin: -mild elevation likely a supply demand mismatch and not coronary ischemia. 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 -did have elevated heart rate and low blood pressure while in the emergency room. GI bleed Gout Hearing loss Hematuria (2018) History of basal cell carcinoma (2017) Hypercholesteremia Leg edema Male erectile disorder of organic origin Valvular heart disease Vitamin D deficiency Surgical History H/O pyloroplasty H/O shoulder surgery Hx laparoscopic cholecystectomy (08/06/20) Laparoscopic Cholecystectomy with Cholangiogram, Lysis of Adhesions Dr. Givens 08/06/2020 S/P bladder tumor excision with fulguration (2016) S/P knee surgery Status post ORIF of fracture of ankle Family History Grandfather Cancer Social History Smoking Status: Never smoker Age Quit Using Tobacco: 32; Second Hand Exposure: No; Hx Alcohol Use: No Hx Substance Use: No Preferred Language: Serbian Communication Ability: Effective Tile Fitter Required: No Beliefs That Will Affect Care: None marital status: Current Living Situation: Spouse Current Living Situation Comment: lives w/ current occupational status: retired How many Children do You have: 2 Other Information That Helps Us Care for You: No Feels Safe at Home: Yes Safety Concerns: Feels Safe At This Time Assistive Devices: BiPap, Glasses, Hearing Aid - Bilateral, Oxygen - Continuous and Walker Review of Systems Review of Systems: All systems reviewed & are unremarkable except as noted in HPI & below Physical Exam Physical Exam: General: A&Ox3. NAD. Cooperative. HEENT: Atraumatic, normocephalic. Pulm: Decreased air movement in bases bilaterally. -wheezes, -rales, -rhonchi. Symmetrical chest rise. No increase work of breathing. No respiratory distress. Cardiac: RRR, +S3, -mrg. +JVD, Radial pulses intact and symmetrical. 2+ pitting edema to shins bilaterally. Abdominal: soft, non-tender, non-distended, BS x 4 Skin: warm, dry, no rash Results & Data Results & Data ([facility]) Vital Signs (Past 12 Hours) Vital Signs Temp Pulse Pulse Resp BP Pulse Ox 12/25/20 11:12 36.3 C L 91 H 19 105/70 96 12/25/20 08:00 94 12/25/20 07:17 36.4 C L 93 H 93 H 17 119/86 99 12/25/20 07:15 92 H 14 97 12/25/20 04:14 36.3 C L 92 H 20 120/81 96 12/25/20 03:27 90 19 98 12/25/20 00:05 36.4 C L 93 H 20 128/98 96 Resident Activity Tracking Resident Involvement: Resident Care Provided Care Provided: Adult Hospital Medicine
--- NOTE | 2020-12-25 16:46 | Electrocardiogram Report ---
Test Reason : Blood Pressure : / mmHG Vent. Rate : 107 BPM Atrial Rate : 127 BPM P-R Int : 000 ms QRS Dur : 076 ms QT Int : 304 ms P-R-T Axes : 000 -27 138 degrees QTc Int : 405 ms Poor data quality, interpretation may be adversely affected Atrial fibrillation with rapid ventricular response Low voltage QRS Inferior infarct (cited on or before 27-NOV-2020) Cannot rule out Anterior infarct (cited on or before 27-NOV-2020) Abnormal ECG When compared with ECG of 27-NOV-2020 07:35, Atrial fibrillation has replaced Sinus rhythm Questionable change in initial forces of Septal leads ST no longer depressed in Inferior leads Confirmed by Gary Mosquera ([id number]) on 12/25/2020 4:46:25 PM Referred By: [facility] Confirmed By:Gary Mosquera
--- NOTE | 2020-12-25 17:38 | Billing Data ---
Date of Service December 25, 2020 Coding Level of Care Code 16116 Subseq Hosp Care Lvl 3
--- NOTE | 2020-12-25 18:01 | Billing Data ---
Date of Service December 25, 2020 Coding Level of Care Code 75842 Initial Inpt Care Lvl 3
--- NOTE | 2020-12-25 18:19 | Billing Data ---
Date of Service December 25, 2020 Coding Level of Care Code 76831 Subseq Hosp Care Lvl 3
--- NOTE | 2020-12-25 19:52 | Billing Data ---
Date of Service December 25, 2020 Coding Level of Care Code 03203 Initial Inpt Care Lvl 3
[2020-12-25] MEDS: MIRTAZAPINE TAB 15 MG TAB PO SCH (20:51)
[2020-12-26] MEDS: NAFCILLIN SODIUM 2,000 MG in DEXTROSE 5% 100 ML IV SCH ×6 (01:17→20:35)
[2020-12-26 07:54] LABS: Basophils # (auto) 0.04 K/uL (0-0.2); Basophils % (auto) 0.5 %; Eosinophils # (auto) 0.23 K/uL (0-0.5); Eosinophils % (auto) 2.9 %; Hematocrit (blood only) 37.4 % (42-52); Hemoglobin 12.4 g/dL (14.0-18.0); Immature Granulocytes # (auto) 0.06 K/uL (0.00-0.02); Immature Granulocytes % (auto) 0.7 %; Lymphocytes # (auto) 1.36 K/uL (1.2-3.4); Mean Corpuscular Hemoglobin 34.5 pg (25-34); Mean Corpuscular Hgb Conc 33.2 g/dL (32-36); Mean Corpuscular Volume 104.2 fL (80-100); Monocytes # (auto) 0.66 K/uL (0.11-0.59); Monocytes % (auto) 8.2 %; Neutrophils # (auto) 5.66 K/uL (1.4-6.5); Neutrophils % (auto) 70.7 %; Nucleated RBC # (auto) 0.02 K/uL (0-0); Nucleated RBC % (auto) 0.3 %; Platelet Count 178 K/uL (130-400); RDW Coefficient of Variation 20.6 % (11.5-14.5); RDW Standard Deviation 75.8 fL (36.4-46.3); Red Blood Count 3.59 M/uL (4.7-6.1); White Blood Count 8.01 K/uL (4.8-10.8)
[2020-12-26] MEDS: FUROSEMIDE 40 MG in SYRINGE 0 ML IV SCH (07:55)
[2020-12-26] MEDS: METOPROLOL SUCC 25MG EXT REL TAB PO SCH ×2 (07:56→20:34)
[2020-12-26] MEDS: DOCUSATE SODIUM 100 MG CAP PO SCH ×2 (07:57→20:35)
[2020-12-26] MEDS: allopurinoL 300 MG TAB PO SCH (07:57)
--- NOTE | 2020-12-26 08:04 | XRay Report ---
XR chest 1V portable HISTORY: 89 years-old Male bilateral pleural effusions follow-up study in a patient with bilateral p leural effusions COMPARISON: Chest CT and chest radiograph 12/24/2020 TECHNIQUE: Portable AP view of the chest FINDINGS: Moderate enlargement of the cardiac silhouette. A left-sided PICC is present with distal tip terminat ing in the expected location of the brachiocephalic SVC confluence. Pulmonary vascular congestion. No pneumothorax. Unchanged moderate pleural effusions with bibasilar consolidation. Degenerative change s of the shoulders and spine. IMPRESSION: 1. Cardiomegaly with pulmonary vascular congestion. 2. Unchanged moderate pleural effusions with bibasilar consolidation. ACT 112: Negative or not required by law. The above report was generated using voice recognition software. It may contain grammatical, syntax o r spelling errors. Electronically signed by: Gabriel Beltran M.D. 12/26/2020 8:03 AM
[2020-12-26 08:15] LABS: Anisocytosis Present; Basophilic Stippling 1+; Echinocytes 2+; Polychromasia 1+; Target Cells 1+
[2020-12-26 08:18] LABS: Albumin Level 1.7 gm/dl (3.4-5.0); BUN Creatinine Ratio 18.7 (10-20); Calcium 8.1 mg/dl (8.5-10.1); Est GFR (African American) 32.4 ml/min; Est GFR (Non-African American) 27.9 ml/min; Potassium 3.4 mmol/L (3.5-5.1)
[2020-12-26 08:21] LABS: Albumin Globulin Ratio 0.4 (0.9-2); Bilirubin,Total 3.4 mg/dl (0.2-1); Globulin 4.3 gm/dl (2.5-4.0)
[2020-12-26] MEDS: PANTOprazole 40 MG TAB PO SCH (08:56)
[2020-12-26] MEDS: POTASSIUM CHLORIDE CRTAB 20 MEQ TABCR PO SCH ×2 (08:57→21:47)
[2020-12-26] MEDS: FLUoxetine HCL 10 MG CAP PO SCH (09:39)
--- NOTE | 2020-12-26 09:54 | Hospitalist Progress Note ---
Date of Service December 26, 2020 Assessment & Plan (1) Acute respiratory failure with hypoxia: (2) Acute CHF (congestive heart failure): (3) Bacteremia: (4) GERD (gastroesophageal reflux disease): (5) Atrial fibrillation, permanent: (6) Hypertension: (7) Anemia: (8) Benign prostatic hyperplasia with urinary obstruction: (9) Dyslipidemia: Plan: 89 yo medically complex male admitted for acute respiratory failure with hypoxia and fluid overload 1. Fluid Overload with Protein-Calorie Malnutrition/Anasarca and CHF - Mixed clinical picture--most likely at this point from severe malnutrition/anasarca with some degree of contribution from CHF - Albumin 1.9 on admission - O2 supplementation to maintain sats above 90% - Pulmonary consult for evaluation of thoracentesis of pleural effusions on chest imaging: - Likely secondary to underlying diastolic CHF, malnutrition (low oncotic pressure) and CKD stage III. - I weaned his oxygen down to 2 L. Would recommend continue to wean to maintain oxygen levels of 90 to 92%. - Agree with continued diuretic therapy. - Chest x-ray reviewed today with continued bilateral pleural effusions. His age and frailty put him at increased risk for complications with thoracentesis. - No absolute indication at this time for thoracentesis. Suspect the effusions are likely due to a transudative process. Can consider restarting Eliquis. - Continue Lasix 40mg IV daily--low threshold to DC if creatinine rises as most likely clinical picture due to malnutrition as above - Monitor I/O - [place] placed on admission--monitor for needs - Given 25g IV albumin on admission to help reduce third spacing of fluid - Dietary consult--plan to supplement with Boost to increase calories 2. Hx Bacteremia - ongoing treatment for MSSA - Nafcillin 2g IV Q4h - blood cultures pending 3. Afib - Eliquis on hold per pulm as above - rate controlled with metoprolol ER Chronic Conditions Anx/Dep: cont fluoxetine, mirtazapine Constipation: cont docusate, prn miralax Gout: cont allopurinol GERD: cont pantoprazole CKD: GFR 28, Cr 2, hold NSAIDs, renally dose medications. BMP daily. DVT ppx: Eliquis resumed FEN/GI: heart healthy, pantoprazole Dispo: telemetry Code Status: full code Admission and Anticipated Discharge Date Admission Date: December 24, 2020 I personally examined the patient and verified all bradshaw points of history and exam, discussed case, and agree with decision making with Dr Dunbar. Resting when I see him. Tray for lunch has been cleared/appears to have been totally eaten. Vitals noted, in general he is a resting and in no distress. HEENT normocephalic atraumatic mucous membranes moist. Breathing unlabored no accessory muscle use good effort. Skin shows no rashes no pallor or icterus. Neuro without focal deficits at rest. Severe protein malnutrition/anasarcawhile he does have a degree of acute on chronic systolic (HFrEF) CHFhis clinical picture is much more concerning for severe protein malnutrition with anasarca that happens to include pleural effusions, rather than decompensated CHF leading to pleural effusions. We will follow closely on Lasixwith a very low threshold to DC if his creatinine continues to riseit is not clear that he is volume overloaded as much is volume poorly distributed, but right now creatinine is overall stable, so can cautiously continue. Continue to encourage p.o. intake. Appreciate dietitian assistancewe will try to target upper end of calorie goals to try to help build him upprobably in the neighborhood of 2300 ideally. PT/OT eval and treat. For now hold off on thoracentesisas discussed with pulmonary, given that he is breathing okay, the concern would be with his protein malnutrition that it may fill up so quickly as to drastically lessen the benefit of the procedure in regards to his elevated creatinine, it is unclear if this represents a degree of an LASHAWN from poor forward flow from third spacing, or a progression of his CKD from his overall frailty. Follow. Otherwise as above. Results & Data Results & Data ([facility]) Vital Signs (Past 12 Hours) Vital Signs Temp Pulse Pulse Resp BP Pulse Ox 12/26/20 07:42 36.5 C 96 H 18 104/63 96 12/26/20 03:53 36.7 C 96 H 18 99/64 L 96 12/25/20 23:40 36.5 C 96 H 18 95/68 L 96 12/25/20 23:00 96 H Resident Activity Tracking Resident Involvement: Resident Care Provided Care Provided: Adult Hospital Medicine (1) Acute CHF (congestive heart failure) Heart failure type: diastolic Qualified Code(s): I50.31 - Acute diastolic (congestive) heart failure (2) Anemia Anemia type: unspecified type Qualified Code(s): D64.9 - Anemia, unspecified
[2020-12-26] MEDS ORDERED: POTASSIUM CHLORIDE CRTAB 20 MEQ TABCR PO STA (09:55)
--- NOTE | 2020-12-26 13:46 | Pulmonology Progress Note ---
Date of Service December 26, 2020 Assessment & Plan (1) Acute CHF (congestive heart failure): Heart failure type: diastolic Qualified Code(s): I50.31 - Acute diastolic (congestive) heart failure (2) Acute respiratory failure with hypoxia: (3) Pleural effusion due to congestive heart failure: (4) Bilateral edema of lower extremity: Plan: 89-year-old male with a history of malnutrition, diastolic CHF and atrial fibrillation on Eliquis presenting to the hospital due to hypoxia. Patient resides in a correction. Bilateral pleural effusions: Likely secondary to underlying diastolic CHF, malnutrition (low oncotic pressure) and CKD stage III. Patient is not significantly symptomatic at this time. I weaned his oxygen down to 2 L. Would recommend continue to wean to maintain oxygen levels of 90 to 92%. Agree with continued diuretic therapy. Chest x-ray reviewed today with continued bilateral pleural effusions. Recommend nutrition consult to help improve protein stores. His age and frailty put him at increased risk for complications with thoracentesis. No absolute indication at this time for thoracentesis. Suspect the effusions are likely due to a transudative process. Can consider restarting Eliquis. Atrial fibrillation: Consider restarting Eliquis. Will defer to primary team. Thank you for the consult. Please call with questions. Admission and Anticipated Discharge Date Admission Date: December 24, 2020 Subjective Patient seen and examined this morning. He notes that he had "a spell" of shortness of breath earlier today. He cannot elaborate on the details. He feels like he is "losing control" of his body. Overall, he says he feels stable. He denies any chest pain, fevers or chills. Review of Systems Review of Systems: All systems reviewed & are unremarkable except as noted in HPI & below Physical Exam Physical Exam: Constitutional: Patient appears to be of their stated age. Patient is in no apparent distress. Patient is well-developed. Eyes: Pupils are equal round and reactive to light. Conjunctivae are normal. Anicteric sclera. Ears nose, mouth and throat: No obvious abnormalities. Neck: Trachea is midline. Visual inspection is normal. Respiratory: Diminished in the bilateral lower lobes. Cardiovascular: Regular rate and rhythm. No murmurs. 3+ pitting edema in the lower extremities Gastrointestinal: Normal bowel sounds, soft, nontender and nondistended. No hepatosplenomegaly noted. Musculoskeletal: No cyanosis. Patient is able to move all extremities. Strength is 5 out of 5 in the upper and lower extremities. Skin: No rashes, warm dry and intact. Neurologic: No obvious focal neurological deficits seen. Psychiatric: Alert and oriented x3 with a euthymic affect. Results & Data Results & Data ([facility]) Vital Signs (Past 12 Hours) Vital Signs Temp Pulse Resp BP Pulse Ox 12/26/20 12:44 97.7 F 96 H 18 102/59 L 96 12/26/20 07:42 97.7 F 96 H 18 104/63 96 12/26/20 03:53 98.1 F 96 H 18 99/64 L 96 Chest x-ray reviewed with layered bilateral pleural effusions PG Care Time/CCT Total # of Minutes Spent Total Time Spent with Patient: Total time spent is greater than 50% in coordination of care (as documented) at patient's floor/unit and/or counseling patient: Coding Level of Care Code 33734 Subseq Hosp Care Lvl 2 Diagnoses Acute CHF (congestive heart failure) I50.31 Heart failure type: diastolic Acute respiratory failure with hypoxia J96.01 Pleural effusion due to congestive heart failure I50.9 Bilateral edema of lower extremity R60.0
--- NOTE | 2020-12-26 17:37 | Billing Data ---
Date of Service December 26, 2020 Coding Level of Care Code 41690 Subseq Hosp Care Lvl 2
[2020-12-26] MEDS: MIRTAZAPINE TAB 15 MG TAB PO SCH (20:34)
[2020-12-26] MEDS: ACETAMINOPHEN 325 MG TAB PO PRN (20:34)
[2020-12-26] MEDS: APIXABAN 2.5 MG TAB PO SCH (21:47)
[2020-12-27] MEDS: NAFCILLIN SODIUM 2,000 MG in DEXTROSE 5% 100 ML IV SCH ×6 (00:10→20:24)
[2020-12-27] MEDS: ACETAMINOPHEN 325 MG TAB PO PRN (02:46)
[2020-12-27] MEDS: FUROSEMIDE 40 MG in SYRINGE 0 ML IV SCH (07:57)
[2020-12-27] MEDS: METOPROLOL SUCC 25MG EXT REL TAB PO SCH ×2 (07:58→20:24)
[2020-12-27] MEDS: FLUoxetine HCL 10 MG CAP PO SCH (07:58)
[2020-12-27] MEDS: APIXABAN 2.5 MG TAB PO SCH ×2 (07:58→20:24)
[2020-12-27] MEDS: allopurinoL 300 MG TAB PO SCH (07:59)
[2020-12-27] MEDS: PANTOprazole 40 MG TAB PO SCH (07:59)
[2020-12-27] MEDS: DOCUSATE SODIUM 100 MG CAP PO SCH ×2 (08:00→20:24)
[2020-12-27 09:21] LABS: BUN Creatinine Ratio 21.1 (10-20); Calcium 8.1 mg/dl (8.5-10.1); Creatinine Clr Calc Pharmacy 31.1 ml/min; Est GFR (African American) 36.6 ml/min; Est GFR (Non-African American) 31.6 ml/min; Potassium 3.3 mmol/L (3.5-5.1)
--- NOTE | 2020-12-27 09:26 | Hospitalist Progress Note ---
Date of Service December 27, 2020 Assessment & Plan (1) Acute respiratory failure with hypoxia: (2) Acute CHF (congestive heart failure): (3) Bacteremia: (4) GERD (gastroesophageal reflux disease): (5) Atrial fibrillation, permanent: (6) Hypertension: (7) Anemia: (8) Benign prostatic hyperplasia with urinary obstruction: (9) Dyslipidemia: Plan: 89 yo medically complex male admitted for acute respiratory failure with hypoxia and fluid overload 1. Fluid Overload with Protein-Calorie Malnutrition/Anasarca and CHF - Mixed clinical picture--most likely at this point from severe malnutrition/anasarca with some degree of contribution from CHF - Albumin 1.9 on admission - O2 supplementation to maintain sats above 90% - Pulmonary consult for evaluation of thoracentesis of pleural effusions on chest imaging: - Likely secondary to underlying diastolic CHF, malnutrition (low oncotic pressure) and CKD stage III. - Would recommend continue to wean to maintain oxygen levels of 90 to 92%. - Agree with continued diuretic therapy. - Chest x-ray reviewed today with continued bilateral pleural effusions. His age and frailty put him at increased risk for complications with thoracentesis. - No absolute indication at this time for thoracentesis. Suspect the effusions are likely due to a transudative process. Can consider restarting Eliquis. - Continue Lasix 40mg IV daily--low threshold to DC if creatinine rises as most likely clinical picture due to malnutrition as above - Has continued diuresing well with Lasix--creatinine actually improving today - Monitor I/O - [place] placed on admission--monitor for needs, discontinue at DC - Given 25g IV albumin on admission to help reduce third spacing of fluid - Dietary consult--plan to supplement with Boost to increase calories - Monitor BMP in light of diuresis 2. Hx Bacteremia - ongoing treatment for MSSA through 01/17 per previous discharge summary - Nafcillin 2g IV Q4h - blood cultures negative and finalized 3. Afib - Eliquis - rate controlled with metoprolol ER Chronic Conditions Anx/Dep: cont fluoxetine, mirtazapine Constipation: cont docusate, prn miralax Gout: cont allopurinol GERD: cont pantoprazole CKD: GFR 28, Cr 2, hold NSAIDs, renally dose medications. BMP daily. DVT ppx: Eliquis FEN/GI: heart healthy, pantoprazole Dispo: telemetry Code Status: full code Admission and Anticipated Discharge Date Admission Date: December 24, 2020 Supervising Physician Co-Signing Physician Notes I personally examined the patient and verified all bradshaw points of history and exam, discussed case, and agree with decision making with Dr Dunbar. Sitting up in chair. No complaints. Eating well. Feeling overall better. Patient and pleased with his progress, both pleased with the idea of return to SNF tomorrow. Vitals noted, in general he is a resting and in no distress. HEENT normocephalic atraumatic mucous membranes moist. Breathing unlabored no accessory muscle use good effort. Skin shows no rashes no pallor or icterus. Neuro without focal deficits at rest. Severe protein malnutrition/anasarcawhile he does have a degree of acute on chronic systolic (HFrEF) CHFhis clinical picture is much more concerning for severe protein malnutrition with anasarca that happens to include pleural effusions, rather than decompensated CHF leading to pleural effusions. We will follow closely on Lasixwith a very low threshold to DC if his creatinine continues to riseit is not clear that he is volume overloaded as much is volume poorly distributed, but right now creatinine is overall stable, so can cautiously continue, particularly because his labs are surprisingly improved, and his overall clinical status is improved as well. Continue to encourage p.o. intake and protein shakes. Appreciate dietitian assistancewe will try to target upper end of calorie goals to try to help build him upprobably in the neighborhood of 2300 ideally. PT/OT eval and treat. For now continue to hold off on thoracentesisas discussed with pulmonary, given that he is breathing okay, the concern would be with his protein malnutrition that it may fill up so quickly as to drastically lessen the benefit of the procedure in regards to his elevated creatinine, it is unclear if this represents a degree of an LASHAWN from poor forward flow from third spacing, or a progression of his CKD from his overall frailty. Follow. Otherwise as above Subjective Patient examined at bedside this AM. No new complaints. Reports he has been eating as much of his food as possible. Denies any pain, n/v, diarrhea, abd pain. Review of Systems Review of Systems: All systems reviewed & are unremarkable except as noted in Subjective Physical Exam Constitutional: WD/WN, vitals as above Eyes: PERRL, conjunctivae normal, anicteric sclerae Respiratory: normal respiratory effort, lungs clear to auscultation Cardiovascular: RRR, no murmur, no edema Skin: no rashes, warm and dry Psychiatric: A+Ox3, euthymic affect Results & Data Results & Data ([facility]) Vital Signs (Past 12 Hours) Vital Signs Temp Pulse Pulse Resp BP Pulse Ox Pulse Ox 12/27/20 08:44 94 12/27/20 08:40 95 H 12/27/20 08:35 94 12/27/20 07:26 36.4 C L 94 H 18 121/84 94 12/27/20 04:53 36.5 C 97 H 18 104/65 92 12/26/20 23:20 36.7 C 99 H 20 103/62 91 12/26/20 23:00 99 H Resident Activity Tracking Resident Involvement: Resident Care Provided Care Provided: Adult Hospital Medicine (1) Acute CHF (congestive heart failure) Heart failure type: diastolic Qualified Code(s): I50.31 - Acute diastolic (congestive) heart failure (2) Anemia Anemia type: unspecified type Qualified Code(s): D64.9 - Anemia, unspecified
[2020-12-27] MEDS: POTASSIUM CHLORIDE CRTAB 20 MEQ TABCR PO SCH ×2 (10:26→20:24)
--- NOTE | 2020-12-27 17:49 | Billing Data ---
Date of Service December 27, 2020 Coding Level of Care Code 67708 Subseq Hosp Care Lvl 2
[2020-12-27] MEDS: MIRTAZAPINE TAB 15 MG TAB PO SCH (20:24)
[2020-12-28] MEDS: NAFCILLIN SODIUM 2,000 MG in DEXTROSE 5% 100 ML IV SCH ×2 (00:43→03:57)
[2020-12-28] MEDS: FUROSEMIDE 40 MG in SYRINGE 0 ML IV SCH (08:15)
[2020-12-28] MEDS: METOPROLOL SUCC 25MG EXT REL TAB PO SCH (08:15)
[2020-12-28] MEDS: FLUoxetine HCL 10 MG CAP PO SCH (08:16)
[2020-12-28] MEDS: PANTOprazole 40 MG TAB PO SCH (08:16)
[2020-12-28] MEDS: APIXABAN 2.5 MG TAB PO SCH (08:16)
[2020-12-28] MEDS: allopurinoL 300 MG TAB PO SCH (08:16)
[2020-12-28 08:17] LABS: BUN Creatinine Ratio 20.8 (10-20); Calcium 8.1 mg/dl (8.5-10.1); Creatinine Clr Calc Pharmacy 33.6 ml/min; Est GFR (Non-African American) 36.3 ml/min; Potassium 3.1 mmol/L (3.5-5.1)
[2020-12-28] MEDS: DOCUSATE SODIUM 100 MG CAP PO SCH (08:18)
[2020-12-28] MEDS: POTASSIUM CHLORIDE CRTAB 20 MEQ TABCR PO SCH (08:18)
[2020-12-28] MEDS ORDERED: POTASSIUM CHLORIDE CRTAB 20 MEQ TABCR PO STA ×2 (08:25→10:25)
[2020-12-28] MEDS ORDERED: NAFCILLIN SODIUM 2,000 MG in DEXTROSE 5% 100 ML IV SCH (13:00)
--- NOTE | 2020-12-28 13:32 | Discharge Summary ---
Date of Service December 28, 2020 Admission HPI Per Admitting Provider 89yo M recently discharged on 11/30 for MSSA bacteremia, resident at [facility] with hx Afib, HFrEF (45-50%), acalculous cholecystitis, HLD, BPH, CKD3, Bladder cancer, HTN, Anemia brought to ER for increased swelling in hands and feet. Patient states that he doesn't notice anything different other than the swelling. denies any SOB, CP, fevers, chills. He denies knowing that he has heart failure and says that he remembers "walking around a room in the hospital" during his last admission. He denies being on a salt restricted diet at [facility] and says his daily intake frequently includes soup, chips, lunch meat and pastas. Admission Exam Per Admitting Provider Constitutional: well developed and well nourished; no acute distress Respiratory: + labored breathing and + cough; no respiratory distress and + not able to speak in complete sentence Cardiovascular: Rate/Rhythm: regular rate and + irregularly irregular Heart Sounds: + murmur Vessels: no JVD Extremities: + pedal edema (fluid seeping from skin) and + edema (3+ pitting to knees bilaterally, 1-2+ to hips BL) Gastrointestinal (Abdomen): Inspection/Auscultation: abdomen normal to inspection; abdomen not distended Percussion/Palpation: abdomen soft; abdomen nontender Genitourinary: rayo in place Principal Diagnosis Fluid overload secondary to malnutrition/anasarca and acute CHF exacerbation Discharge Exam General: Awake, alert and oriented. No acute distress. CV: RRR, no murmurs, gallops, rubs. S1/S2 normal. Respiratory: CTAB, no wheezes, rhonchi, rales. No increased work of breathing. Skin: No rashes, lesions. Dry and intact. Discharge Data Allergies Allergy/AdvReac Type Severity Reaction Status Date / Time No Known Allergies Allergy Unknown Verified 12/24/20 21:40 Consultations 12/24/20 22:16 ED Decision to Admit Stat 12/24/20 23:55 Consult Pulmonology Routine Ordered Studies 12/24/20 19:53 CT abd pelvis wo con Urgent 12/24/20 20:45 CT chest diagnostic wo con Urgent Hospital Course (1) Acute respiratory failure with hypoxia: (2) Acute CHF (congestive heart failure): (3) Bacteremia: (4) GERD (gastroesophageal reflux disease): (5) Atrial fibrillation, permanent: (6) Hypertension: (7) Anemia: (8) Benign prostatic hyperplasia with urinary obstruction: (9) Dyslipidemia: 89 yo medically complex male admitted for acute respiratory failure with hypoxia and fluid overload 1. Fluid Overload with Protein-Calorie Malnutrition/Anasarca and CHF - Mixed clinical picture--most likely at this point from severe maln utrition/anasarca with some degree of contribution from CHF - Albumin 1.9 on admission - Pulmonary consult for evaluation of thoracentesis of pleural effusions on chest imaging: - Likely secondary to underlying diastolic CHF, malnutrition (low oncotic pressure) and CKD stage III. - Would recommend continue to wean to maintain oxygen levels of 90 to 92%. - Agree with continued diuretic therapy. - Chest x-ray reviewed today with continued bilateral pleural effusions. His age and frailty put him at increased risk for complications with thoracentesis. - No absolute indication at this time for thoracentesis. Suspect the effusions are likely due to a transudative process. Can consider restarting Eliquis. - Lasix 40mg IV daily while admitted with good diuresis - Continue with Lasix 40mg PO daily at discharge - Recommend twice weekly BMPs to monitor renal function with this med - Dietary consult--plan to supplement with Boost to increase calories (calorie goal about 2300kcal daily) 2. Hx Bacteremia - ongoing treatment for MSSA through 01/17 per previous discharge summary - Nafcillin 2g IV Q4h - blood cultures negative and finalized 3. Afib - Eliquis - rate controlled with metoprolol ER Chronic Conditions Anx/Dep: cont fluoxetine, mirtazapine Constipation: cont docusate, prn miralax Gout: cont allopurinol GERD: cont pantoprazole CKD: GFR 28, Cr 2, hold NSAIDs, renally dose medications Dispo: Transfer back to [facility] Total Time Total Time Spent Total Time Spent (In Minutes): <30 Discharge Plan Discharge Items Patient Disposition: Home - Self-Care Reason For Visit: HYPOXIA, CHF EXACERBATION Discharge Diagnosis: Fluid overload 2/2 malnutrition & CHF Activity: Per Instructions section Non-emergency contact: Primary Care Provider Call non-emergency contact if: you have any medication questions and your symptoms worsen Follow-up/Referrals: [facility] [Primary Care Provider] - Mita Odell PA-C [Physician Yard Switcher] - 01/03/21 2:00 pm Diet: Heart Healthy and Low Sodium (2gm) Addtl Attending Provider Instructions: Fran Rhodes came to [facility] due to increased swelling. He was found to be mildly hypoxic and required oxygen supplementation intiailly. Chest imaging showed bilateral plural effusions and the patient was hypervolemic on examination. As such, he was started on diuretics and continued to diurese well while admitted. Pulmonology evaluated him for possible throacentesis but deemed him to not be a good candidate as his malnutrition (see below) would likely cause his pleural effusions to recur. While his congestive heart failure likely contributed to a certain degree, as evidenced by his diuresing with Lasix, we also believe that this fluid overload is largely due to protein-calorie malnutrition. He had significantly decreased albumin on lab work and admitted to not having much of an appetite as of late. He was evaluated by our Nutrition team who recommended that he have a dietary consumption of about 2300 calories, supplementing with low-sodium Boost three times daily. Likely improving his nutritional status will help to avoid future instances of fluid overload. As he has been responding to some degree to IV diuretic treatment in the hospital, we will discharge him with Lasix 40mg orally daily. We recommend monitoring his creatinine on basic metabolic panel twice weekly. If he has increase in creatinine, would consider stopping daily diuresis and moving to a more intermittent regimen. He should also continue on his antibiotic regimen as ordered during his previous hospitalization. Per discharge paperwork, this would be set to finish on 01/17/21. All other medications per discharge med list. Pending Studies at Discharge: No Stand-Alone Forms: [facility] [email or web address], Smoking Cessation Medications and DC Order Prescriptions: New furosemide [Lasix] 40 mg tablet 40 mg PO DAILY 30 Days Qty: 30 RF: 0 Continued allopurinol 300 mg tablet 300 mg PO QAM RF: 0 esomeprazole magnesium 40 mg capsule,delayed release(DR/EC) 40 mg PO QAM RF: 0 Eliquis 5 mg tablet 5 mg PO BID Qty: 60 RF: 3 mirtazapine [Remeron] 15 mg tablet 15 mg PO DAILY RF: 0 docusate sodium [Colace] 100 mg capsule 100 mg PO BID RF: 0 metoprolol succinate 25 mg tablet extended release 24 hr 12.5 mg PO BID RF: 0 fluoxetine 10 mg capsule 10 mg PO QAM RF: 0 ferrous sulfate 325 mg (65 mg iron) tablet 325 mg PO BID Qty: 60 RF: 0 nafcillin 2 gram recon soln 2 g IV Q4H 42 Days Qty: 252 RF: 0 potassium chloride [Klor-Con M20] 20 mEq tablet,ER particles/crystals 20 meq PO BID RF: 0 acetaminophen [Tylenol] 325 mg Tablet 650 mg PO Q6H MDD 3G PRN (Reason: Fever Or Pain) RF: 0 Discontinued azithromycin 250 mg Tablet 250 mg PO DAILY RF: 0 azithromycin 500 mg Tablet 500 mg PO .DAILY X1 RF: 0 Discharge Orders: Discharge Order (Routine); Ordered 12/28/20 Ordered By: Samson Lua Admission Data Admit Date/Time: 12/24/20 22:57 Attending Provider: Tyler Ray Admit Provider: Domencio Diaz Primary Care Provider: [facility] Other Providers: Domenico Diaz ; Dmitry Mosley Other Interventions: Discharge Summary Assessment (RN) Last Done: 12/28/20 11:44 Supervising Physician Co-Signing Physician Notes I personally examined the patient and verified all bradshaw points of history and exam, discussed case, and agree with decision making with Dr Dunbra. Feeling up to going back to SNF. No new complaints. Vitals noted, in general he is a resting and in no distress. HEENT normocephalic atraumatic mucous membranes moist. Breathing unlabored no accessory muscle use good effort. Skin shows no rashes no pallor or icterus. Neuro without focal deficits at rest. Severe protein malnutrition/anasarcawhile he does have a degree of acute on chronic systolic (HFrEF) CHFhis clinical picture is much more concerning for severe protein malnutrition with anasarca that happens to include pleural effusions, rather than decompensated CHF leading to pleural effusions. As it relates to diuresis, his creatinine is improving, and his overall clinical status is improving, so while the picture appears to be predominantly anasarca from severe protein malnutrition, there also probably is a bit of an element of CHF related fluid overload as wellto that end we will discharge on 40 mg of Lasix daily, but would ask that he had serial basic metabolic panels checked, so that when/if he reaches a dry point, the diuretic is reduced or discontinued. Continue to encourage p.o. intake and protein shakes. Appreciate dietitian assistancewe will try to target upper end of calorie goals to try to help build him upprobably in the neighborhood of 2300 ideally. PT/OT eval and treat ongoing at SNF. For now continue to hold off on thoracentesisas discussed with pulmonary, given that he is breathing okay, the concern would be with his protein malnutrition that it may fill up so quickly as to drastically lessen the benefit of the procedure in regards to his elevated creatinine, it is unclear if this represents a degree of an LASHAWN from poor forward flow from third spacing, or a progression of his CKD from his overall frailtybut has improved some with diuresis suggesting some degree of LASHAWN from poor forward flow. Follow as outpatient. Stable for return to SNF at this time. Resident Activity Tracking Resident Involvement: Resident Care Provided Care Provided: Adult [facility]
--- NOTE | 2020-12-28 17:52 | Billing Data ---
Date of Service December 28, 2020 Coding Level of Care Code D/C DAY MANAGEMENT <30 MINS
== END 2020-12-28 14:33 | DRG 640 ==
LOC: ED 19:35 → 2S 22:57 → SUATTDRO 22:57 → 2S 23:36

== ENCOUNTER 2021-01-15 09:40 | Inpatient (IN) ==
[2021-01-15] MEDS ORDERED: NovoLIN-R INSULIN PER UNIT CHARGE IV STA (10:32)
[2021-01-15] MEDS ORDERED: DEXTROSE 50% 50 ML SYRINGE IV ONE ×2 (10:32→15:18)
[2021-01-15] MEDS ORDERED: SODIUM BICARB 8.4% INJ 50 MEQ/50 ML SYR IV STA (10:32)
[2021-01-15] MEDS ORDERED: SODIUM CHLORIDE 0.9% 500 ML IV ONE (10:36)
--- NOTE | 2021-01-15 10:42 | XRay Report ---
XR chest 1V portable CLINICAL HISTORY: SEPSIS COMPARISON STUDY: December 24, 2020 FINDINGS: No pneumothorax. Small bilateral pleural effusion are seen, improved since prior. Atelectasis/infiltrates are seen at bilateral lower lungs, improved since prior. Cardiomediastinal silhouette is within normal limits in size. No significant pulmonary vascular congestion.. Osseous structures: Severe degenerative changes of bilateral shoulders and spine. IMPRESSION: 1. Interval improvement of bilateral pleural effusions. Atelectasis/infiltrates at bilateral lower l ungs are slightly improved since prior. 2. The rest of findings as above. ACT 112: Negative or not required by law. The above report was generated using voice recognition software. It may contain grammatical, syntax o r spelling errors. Electronically signed by: Tayla Garrison DO 01/15/2021 10:41 AM
--- NOTE | 2021-01-15 10:54 | Emergency Department Note ---
History of Present Illness General Chief complaint: Hypoglycemia Time Seen by Provider: 01/15/21 09:43 History of Present Illness Maximum Pain Intensity: 6 89-year-old male presents from a local intermediate with a chief complaint of increased agitation and confusion this morning. The patient presented by ambulance. He was found to have a blood sugar of 48. He was given the 25 in route and his blood sugar improved. He still seems to be somewhat confused on exam. He does complain of some pain in the top of his toes initially left but then right when I examined him here the patient has a reported 6 pound weight gain over the last few days since being discharged from [facility] to [facility]. He does have pitting pedal edema on exam. He also had reportedly fallen out of bed on Thursday. He is chronically on Eliquis for A. fib. He also has a history of CHF. Patient provides little useful information. Home Medications Medication Instructions Recorded Confirmed Type allopurinol 300 mg tablet 300 mg PO QAM tab 01/21/19 01/15/21 History apixaban 5 mg tablet (Eliquis) 5 mg PO BID #60 tab 07/26/20 01/15/21 Rx fluoxetine 10 mg capsule (Prozac) 10 mg PO QAM 10/15/20 01/15/21 History docusate sodium 100 mg capsule 100 mg PO BID 11/15/20 01/15/21 History (Colace) mirtazapine 15 mg tablet (Remeron) 15 mg PO QAM 11/15/20 01/15/21 History potassium chloride 20 mEq 20 meq PO TID 12/24/20 01/15/21 History tablet,extended release(part/cryst) (Klor-Con M) ferrous sulfate 325 mg (65 mg 325 mg PO BID 01/15/21 01/15/21 History iron) tablet (Iron (ferrous sulfate)) furosemide 40 mg tablet (Lasix) 40 mg PO QAM 01/15/21 01/15/21 History melatonin 3 mg tablet (Melatin) 3 mg PO HS 01/15/21 01/15/21 History metoprolol succinate 25 mg 12.5 mg PO BID 01/15/21 01/15/21 History tablet,extended release 24 hr (Toprol XL) nitrofurantoin macrocrystal 50 mg 50 mg PO BID 01/15/21 01/15/21 History capsule (Macrodantin) pantoprazole 40 mg tablet,delayed 40 mg PO QAM 01/15/21 01/15/21 History release (Protonix) Allergies Allergy/AdvReac Type Severity Reaction Status Date / Time No Known Allergies Allergy Unknown Verified 01/03/21 14:21 Past Med/Surg History Medical History Abdominal ascites Abnormal cystoscopy Actinic keratosis Acute CHF (congestive heart failure) Acute respiratory failure with hypoxia Atrial fibrillation with rapid ventricular response (03/2020) Bacteremia Bilateral edema of lower extremity Bilateral nephrolithiasis (2005) Bilateral pleural effusion Bladder cancer (2016) Elevated troponin Per cardiology note 08/05/20: (2) Elevated troponin: -mild elevation likely a supply demand mismatch and not coronary ischemia. 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 -did have elevated heart rate and low blood pressure while in the emergency room. GI bleed Gout Hearing loss Hematuria (2018) History of basal cell carcinoma (2016) Hypercholesteremia Leg edema Male erectile disorder of organic origin Valvular heart disease Vitamin D deficiency Surgical History H/O pyloroplasty H/O shoulder surgery Hx laparoscopic cholecystectomy (08/06/20) Laparoscopic Cholecystectomy with Cholangiogram, Lysis of Adhesions Dr. Givens 08/06/2020 S/P bladder tumor excision with fulguration (2016) S/P knee surgery Status post ORIF of fracture of ankle Family History Grandfather Cancer Social History Smoking Status: Unknown if ever smoked Age Quit Using Tobacco: 32; Second Hand Exposure: No; Hx Alcohol Use: No Hx Substance Use: No Preferred Language: Kinyarwanda Communication Ability: Effective Database Designer Required: No Beliefs That Will Affect Care: None marital status: Current Living Situation: Spouse Current Living Situation Comment: lives w/ current occupational status: retired How many Children do You have: 2 Feels Safe at Home: Yes Assistive Devices: Glasses, Hearing Aid - Bilateral and Walker Review of Systems A total of 10 systems reviewed and were otherwise negative Physical Exam Vital Signs Vital Signs - 24 hr 01/15/21 09:53 Temperature 36.9 C Temperature Source Oral Pulse Rate 124 H Respiratory Rate 18 Respiratory Effort / Characteristics Non-Labored Spontaneous Respiratory Depth Normal Respiratory Pattern Regular Blood Pressure 108/84 Blood Pressure Mean 92 Pulse Oximetry 88 L Oxygen Delivery Method Room Air Sepsis Recent Fever Within 48 Hours No Sepsis New/Unexplained Change in Mental Status No Sepsis Action Taken by Nursing No Action Required CONSTITUTIONAL/VITAL SIGNS: Reviewed / noted above. GENERAL: Non-toxic in appearance. INTEGUMENTARY: Warm, dry, and [place]. HEAD: Normocephalic. EYES: without scleral icterus or trauma. ENT/OROPHARYNX: clear and moist. LYMPHADENOPATHY/NECK: Is supple without lymphadenopathy or meningismus. RESPIRATORY: Clear to auscultation bilaterally. No increased work of breathing. CARDIOVASCULAR: Tachycardic rate regular rhythm. GI/ABDOMEN: Soft and nontender. No organomegaly or pulsatile mass. EXTREMITIES: Warm and well perfused. Positive pitting edema. Some serous fluid leaking out some small wounds. NEUROLOGICAL: Patient is awake and alert. Confused to place and events. PSYCHIATRIC: Unable to assess. MUSCULOSKELETAL: Chronically bedbound appearing. TRIAGE NURSING DOCUMENTATION REVIEWED. Procedures ABG Interpretation ABG Interpretation 1: ABG Results: 7.54/24/57/90% Interpretation: respiratory alkalosis Course Administered Medications Discontinued Medications Albuterol (Albuterol 0.083% Nebu Soln 3 Ml Vial) 2.5 mg NEB NOW STA Stop: 01/15/21 11:32 Last Admin: 01/15/21 11:54 Dose: Not Given Documented by: [id number] Dextrose (Dextrose 50% 50 Ml Syringe) 50 ml IV NOW ONE Stop: 01/15/21 10:33 Last Admin: 01/15/21 10:40 Dose: 50 ml Documented by: [id number] Sodium Chloride (Nss) 500 mls @ 999 mls/hr IV .Q31M ONE Stop: 01/15/21 11:06 Last Admin: 01/15/21 10:41 Dose: 999 mls/hr Documented by: [id number] Insulin Human Regular (Novolin-R Insulin Per Unit Charge) 10 units IV NOW STA Stop: 01/15/21 10:33 Last Admin: 01/15/21 10:40 Dose: 10 units Documented by: [id number] Cosigned by: [id number] Sodium Bicarbonate (Sodium Bicarb 8.4% Inj 50 Meq/50 Ml Syr) 50 meq IV NOW STA Stop: 01/15/21 10:33 Last Admin: 01/15/21 10:40 Dose: 50 meq Documented by: [id number] Critical Care Time Critical Care Time: Yes Total Critical Care Time: 30 I have personally spent 30 minutes of critical care time in the direct management of this patient. This includes bedside care, interpretation of diagnostic studies, and testing, discussion with consultants, patient, and family members, and other required patient management activities. This 30 minutes is in excess of all separately billable procedures. Medical Decision Making Differential Diagnosis Differential includes acute coronary syndrome, myocardial infarction, CVA, TIA, anemia, infection, pneumonia, UTI, pyelonephritis, poor nutrition, dehydration, electrolyte disturbance,hypoglycemia. Medical Records Attestation: I reviewed the patient's medical records. Home Medications Current Medication List: was personally reviewed by me Laboratory Data Attestation: I reviewed the patient's lab results. Result diagrams: 01/15/21 10:49 01/15/21 10:49 Lab Results 01/15/21 01/15/21 01/15/21 Range/Units 09:49 10:49 10:49 WBC 10.87 H (4.8-10.8) K/uL RBC 3.21 L (4.7-6.1) M/uL Hgb 11.8 L (14.0-18.0) g/dL Hct 34.3 L (42-52) % MCV 106.9 H (80-100) fL MCH 36.8 H (25-34) pg MCHC 34.4 (32-36) g/dL RDW Std Deviation 71.7 H (36.4-46.3) fL RDW Coeff of Osito 21.3 H (11.5-14.5) % Plt Count 179 (130-400) K/uL MPV 12.0 H (7.4-10.4) fL Immature Gran % (Auto) 2.0 % Neut % (Auto) 74.7 % Lymph % (Auto) 10.4 % Gaston % (Auto) 12.3 % Eos % (Auto) 0.3 % Baso % (Auto) 0.3 % Neut # (Auto) 8.12 H (1.4-6.5) K/uL Lymph # (Auto) 1.13 L (1.2-3.4) K/uL Gaston # (Auto) 1.34 H (0.11-0.59) K/uL Eos # (Auto) 0.03 (0-0.5) K/uL Baso # (Auto) 0.03 (0-0.2) K/uL Immature Gran # (Auto) 0.22 H (0.00-0.02) K/uL Absolute Nucleated RBC 0.77 H (0-0) K/uL Nucleated RBC % (auto) 7.1 % Neutrophils % (Manual) 81.7 % Lymphocytes % (Manual) 7.8 % Monocytes % (Manual) 9.6 % Myelocytes % (Man) 0.9 % Neutrophils # (Manual) 8.88 H (1.4-6.5) K/uL Total Absolute Neuts 8.88 H (1.4-6.5) K/uL Lymphocytes # (Manual) 0.85 L (1.2-3.4) K/uL Total Abs Lymphocytes 0.85 L (1.2-3.4) K/uL Monocytes # (Manual) 1.04 H (0.11-0.59) K/uL Myelocytes # (Manual) 0.10 H (0-0) K/uL Polychromasia 1+ Anisocytosis Present Pappenheimer Bodies 1+ Echinocytes 1+ PT 41.0 H (9.0-12.0) Seconds INR 4.6 H (0.9-1.1) APTT 52.2 H* (21.0-31.0) Seconds PTT Ratio 2.0 ABG pH (7.35-7.45) ABG pCO2 (35-46) mmHg ABG pO2 (80-95) mmHg ABG HCO3 (19-24) mmol/L ABG O2 Saturation (90-95) % ABG Base Excess (-9-1.8) mEq/L Jerson Test (Pos) Barometric Pressure mm/Hg Oxygen Given Sodium (136-145) mmol/L Potassium (3.5-5.1) mmol/L Chloride (98-107) mmol/L Carbon Dioxide (21-32) mmol/L Anion Gap (3-11) BUN (7-18) mg/dl Creatinine (0.6-1.4) mg/dl Est Cr Clr Drug Dosing Est GFR ( Amer) ml/min Est GFR (Non-Af Amer) ml/min BUN/Creatinine Ratio (10-20) Glucose (70-99) mg/dl POC Glucose 156 H (70-99) mg/dl Lactate (0.4-2.0) mmol/L Calcium (8.5-10.1) mg/dl Magnesium (1.8-2.4) mg/dl Total Bilirubin (0.2-1) mg/dl AST (15-37) U/L ALT (12-78) U/L Alkaline Phosphatase (45-117) U/L Troponin I (0-0.045) ng/ml Total Protein (6.4-8.2) gm/dl Albumin (3.4-5.0) gm/dl Globulin (2.5-4.0) gm/dl Albumin/Globulin Ratio (0.9-2) Procalcitonin (0-0.5) ng/ml 01/15/21 01/15/21 01/15/21 Range/Units 10:49 10:49 10:49 WBC (4.8-10.8) K/uL RBC (4.7-6.1) M/uL Hgb (14.0-18.0) g/dL Hct (42-52) % MCV (80-100) fL MCH (25-34) pg MCHC (32-36) g/dL RDW Std Deviation (36.4-46.3) fL RDW Coeff of Osito (11.5-14.5) % Plt Count (130-400) K/uL MPV (7.4-10.4) fL Immature Gran % (Auto) % Neut % (Auto) % Lymph % (Auto) % Gaston % (Auto) % Eos % (Auto) % Baso % (Auto) % Neut # (Auto) (1.4-6.5) K/uL Lymph # (Auto) (1.2-3.4) K/uL Gaston # (Auto) (0.11-0.59) K/uL Eos # (Auto) (0-0.5) K/uL Baso # (Auto) (0-0.2) K/uL Immature Gran # (Auto) (0.00-0.02) K/uL Absolute Nucleated RBC (0-0) K/uL Nucleated RBC % (auto) % Neutrophils % (Manual) % Lymphocytes % (Manual) % Monocytes % (Manual) % Myelocytes % (Man) % Neutrophils # (Manual) (1.4-6.5) K/uL Total Absolute Neuts (1.4-6.5) K/uL Lymphocytes # (Manual) (1.2-3.4) K/uL Total Abs Lymphocytes (1.2-3.4) K/uL Monocytes # (Manual) (0.11-0.59) K/uL Myelocytes # (Manual) (0-0) K/uL Polychromasia Anisocytosis Pappenheimer Bodies Echinocytes PT (9.0-12.0) Seconds INR (0.9-1.1) APTT (21.0-31.0) Seconds PTT Ratio ABG pH (7.35-7.45) ABG pCO2 (35-46) mmHg ABG pO2 (80-95) mmHg ABG HCO3 (19-24) mmol/L ABG O2 Saturation (90-95) % ABG Base Excess (-9-1.8) mEq/L Jerson Test (Pos) Barometric Pressure mm/Hg Oxygen Given Sodium 137 (136-145) mmol/L Potassium 6.3 H* (3.5-5.1) mmol/L Chloride 105 (98-107) mmol/L Carbon Dioxide 19 L (21-32) mmol/L Anion Gap 13.0 H (3-11) BUN 58 H (7-18) mg/dl Creatinine 2.90 H (0.6-1.4) mg/dl Est Cr Clr Drug Dosing Not Reportable Est GFR ( Amer) 21.4 ml/min Est GFR (Non-Af Amer) 18.5 ml/min BUN/Creatinine Ratio 19.9 (10-20) Glucose 124 H (70-99) mg/dl POC Glucose (70-99) mg/dl Lactate 6.6 H* (0.4-2.0) mmol/L Calcium 9.8 (8.5-10.1) mg/dl Magnesium 1.9 (1.8-2.4) mg/dl Total Bilirubin 6.7 H (0.2-1) mg/dl AST 1326 H (15-37) U/L ALT 770 H (12-78) U/L Alkaline Phosphatase 148 H (45-117) U/L Troponin I 0.219 H* (0-0.045) ng/ml Total Protein 7.0 (6.4-8.2) gm/dl Albumin 1.9 L (3.4-5.0) gm/dl Globulin 5.1 H (2.5-4.0) gm/dl Albumin/Globulin Ratio 0.4 L (0.9-2) Procalcitonin 0.31 (0-0.5) ng/ml 01/15/21 Range/Units 10:55 WBC (4.8-10.8) K/uL RBC (4.7-6.1) M/uL Hgb (14.0-18.0) g/dL Hct (42-52) % MCV (80-100) fL MCH (25-34) pg MCHC (32-36) g/dL RDW Std Deviation (36.4-46.3) fL RDW Coeff of Osiot (11.5-14.5) % Plt Count (130-400) K/uL MPV (7.4-10.4) fL Immature Gran % (Auto) % Neut % (Auto) % Lymph % (Auto) % Gaston % (Auto) % Eos % (Auto) % Baso % (Auto) % Neut # (Auto) (1.4-6.5) K/uL Lymph # (Auto) (1.2-3.4) K/uL Gaston # (Auto) (0.11-0.59) K/uL Eos # (Auto) (0-0.5) K/uL Baso # (Auto) (0-0.2) K/uL Immature Gran # (Auto) (0.00-0.02) K/uL Absolute Nucleated RBC (0-0) K/uL Nucleated RBC % (auto) % Neutrophils % (Manual) % Lymphocytes % (Manual) % Monocytes % (Manual) % Myelocytes % (Man) % Neutrophils # (Manual) (1.4-6.5) K/uL Total Absolute Neuts (1.4-6.5) K/uL Lymphocytes # (Manual) (1.2-3.4) K/uL Total Abs Lymphocytes (1.2-3.4) K/uL Monocytes # (Manual) (0.11-0.59) K/uL Myelocytes # (Manual) (0-0) K/uL Polychromasia Anisocytosis Pappenheimer Bodies Echinocytes PT (9.0-12.0) Seconds INR (0.9-1.1) APTT (21.0-31.0) Seconds PTT Ratio ABG pH 7.54 H* (7.35-7.45) ABG pCO2 24 L (35-46) mmHg ABG pO2 57 L (80-95) mmHg ABG HCO3 20 (19-24) mmol/L ABG O2 Saturation 90.0 (90-95) % ABG Base Excess -1.1 (-9-1.8) mEq/L Jerson Test Pos (Pos) Barometric Pressure 732.3 mm/Hg Oxygen Given RA Sodium (136-145) mmol/L Potassium (3.5-5.1) mmol/L Chloride (98-107) mmol/L Carbon Dioxide (21-32) mmol/L Anion Gap (3-11) BUN (7-18) mg/dl Creatinine (0.6-1.4) mg/dl Est Cr Clr Drug Dosing Est GFR ( Amer) ml/min Est GFR (Non-Af Amer) ml/min BUN/Creatinine Ratio (10-20) Glucose (70-99) mg/dl POC Glucose (70-99) mg/dl Lactate (0.4-2.0) mmol/L Calcium (8.5-10.1) mg/dl Magnesium (1.8-2.4) mg/dl Total Bilirubin (0.2-1) mg/dl AST (15-37) U/L ALT (12-78) U/L Alkaline Phosphatase (45-117) U/L Troponin I (0-0.045) ng/ml Total Protein (6.4-8.2) gm/dl Albumin (3.4-5.0) gm/dl Globulin (2.5-4.0) gm/dl Albumin/Globulin Ratio (0.9-2) Procalcitonin (0-0.5) ng/ml Imaging Data Radiologist's Impression: Chest X-Ray 01/15/21 10:00 XR chest 1V portable CLINICAL HISTORY: SEPSIS COMPARISON STUDY: December 24, 2020 FINDINGS: No pneumothorax. Small bilateral pleural effusion are seen, improved since prior. Atelectasis/infiltrates are seen at bilateral lower lungs, improved since prior. Cardiomediastinal silhouette is within normal limits in size. No significant pulmonary vascular congestion.. Osseous structures: Severe degenerative changes of bilateral shoulders and spine. IMPRESSION: 1. Interval improvement of bilateral pleural effusions. Atelectasis/infiltrates at bilateral lower lungs are slightly improved since prior. 2. The rest of findings as above. ACT 112: Negative or not required by law. The above report was generated using voice recognition software. It may contain grammatical, syntax or spelling errors. Electronically signed by: Tayla Garrison DO 01/15/2021 10:41 AM ECG Data Attestation: I personally reviewed and interpreted this ECG as follows: Additional Comments: Twelve-lead EKG: Per my interpretation there is a sinus rhythm at a rate of 137. No ST elevation. No PVCs. Low voltage. MDM Narrative Patient presents with increased agitation and confusion as well as some increased weight gain and a recent fall from bed as detailed above. Prehospital found a blood sugar of 45. Vital signs reveal tachycardia. Pulse ox was difficult to obtain due to the patient's cold extremities. ABG was performed. This shows a respiratory alkalosis related to likely hypoxia. Chest x-ray does show some basilar atelectasis/infiltrates in the bilateral lower lobes. This looks improved from previous x-ray. Lactic acid is 6.6. CBC is unremarkable. EKG shows a sinus tach rate of 137. Potassium is 6.3. BUN is 58. Creatinine is 2.9.This is up from 1.85 on January 09. Troponin is elevated at 0.219. LFTs are elevated as is bilirubin. Bilirubin is higher than it was in the recent past.The patient was treated with a DuoNeb treatment. He was also given IV dextrose and IV insulin for his hyperkalemia. He was given IV bicarb for his hyperkalemia. He was given 500 cc of normal saline bolus as the patient is likely intravascularly dehydrated and this is causing his BUN and creatinine elevation and could be contributing to poor perfusion/elevated lactic acid. The patient will be seen by the hospitalist for further inpatient evaluation and care. Impression & Plan Acute kidney injury, Acute dehydration, Acute respiratory alkalosis, T ransaminitis, Hyperbilirubinemia, Elevated troponin, Edema, peripheral Discharge Plan Visit Data Chief Complaint: Hypoglycemia ED Provider: Zheng Gottlieb ED Midlevel Provider: Lisa Kevin Discharge Problem: Acute kidney injury, Acute dehydration, Acute respiratory alkalosis, Transaminitis, Hyperbilirubinemia, Elevated troponin, Edema, peripheral Patient Disposition: Being Evaluated by Hospitalist Forms Stand Alone Forms: [facility] Prescriptions Prescriptions: No Action allopurinol 300 mg tablet 300 mg PO QAM RF: 0 Eliquis 5 mg tablet 5 mg PO BID Qty: 60 RF: 3 mirtazapine [Remeron] 15 mg tablet 15 mg PO QAM RF: 0 docusate sodium [Colace] 100 mg capsule 100 mg PO BID RF: 0 fluoxetine [Prozac] 10 mg capsule 10 mg PO QAM RF: 0 potassium chloride [Klor-Con M20] 20 mEq tablet,ER particles/crystals 20 meq PO TID RF: 0 nitrofurantoin macrocrystal [Macrodantin] 50 mg Capsule 50 mg PO BID RF: 0 melatonin [Melatin] 3 mg Tablet 3 mg PO HS RF: 0 pantoprazole [Protonix] 40 mg Tablet,Delayed Release (Dr/Ec) 40 mg PO QAM RF: 0 furosemide [Lasix] 40 mg tablet 40 mg PO QAM RF: 0 ferrous sulfate [Iron (ferrous sulfate)] 325 mg (65 mg iron) tablet 325 mg PO BID RF: 0 metoprolol succinate [Toprol XL] 25 mg tablet extended release 24 hr 12.5 mg PO BID RF: 0 Referrals Referrals: Gin saldivarWrenshall [Primary Care Provider] -
[2021-01-15 11:04] LABS: Basophils # (auto) 0.03 K/uL (0-0.2); Basophils % (auto) 0.3 %; Eosinophils # (auto) 0.03 K/uL (0-0.5); Eosinophils % (auto) 0.3 %; Hematocrit (blood only) 34.3 % (42-52); Hemoglobin 11.8 g/dL (14.0-18.0); Immature Granulocytes # (auto) 0.22 K/uL (0.00-0.02); Lymphocytes # (auto) 1.13 K/uL (1.2-3.4); Lymphocytes % (auto) 10.4 %; Mean Corpuscular Hemoglobin 36.8 pg (25-34); Mean Corpuscular Hgb Conc 34.4 g/dL (32-36); Mean Corpuscular Volume 106.9 fL (80-100); Monocytes # (auto) 1.34 K/uL (0.11-0.59); Monocytes % (auto) 12.3 %; Neutrophils # (auto) 8.12 K/uL (1.4-6.5); Neutrophils % (auto) 74.7 %; Nucleated RBC # (auto) 0.77 K/uL (0-0); Nucleated RBC % (auto) 7.1 %; Platelet Count 179 K/uL (130-400); RDW Coefficient of Variation 21.3 % (11.5-14.5); RDW Standard Deviation 71.7 fL (36.4-46.3); Red Blood Count 3.21 M/uL (4.7-6.1); White Blood Count 10.87 K/uL (4.8-10.8)
[2021-01-15 11:14] LABS: Base Excess ABG -1.1 mEq/L (-9-1.8); HCO3 ABG 20 mmol/L (19-24); PCO2 ABG 24 mmHg (35-46); PO2 ABG 57 mmHg (80-95)
[2021-01-15 11:15] LABS: Allen Test Pos (Pos)
[2021-01-15 11:23] LABS: Alanine Aminotransferase 770 U/L (12-78); Albumin Level 1.9 gm/dl (3.4-5.0); BUN Creatinine Ratio 19.9 (10-20); Blood Urea Nitrogen 58 mg/dl (7-18); Calcium 9.8 mg/dl (8.5-10.1); Carbon Dioxide 19 mmol/L (21-32); Chloride 105 mmol/L (98-107); Est GFR (African American) 21.4 ml/min; Est GFR (Non-African American) 18.5 ml/min; Glucose 124 mg/dl (70-99); Magnesium 1.9 mg/dl (1.8-2.4); Potassium 6.3 mmol/L (3.5-5.1); Sodium 137 mmol/L (136-145)
[2021-01-15 11:30] LABS: Albumin Globulin Ratio 0.4 (0.9-2); Alkaline Phosphatase 148 U/L (45-117); Aspartate Aminotransferase 1326 U/L (15-37); Bilirubin,Total 6.7 mg/dl (0.2-1); Globulin 5.1 gm/dl (2.5-4.0); Troponin I 0.219 ng/ml (0-0.045)
[2021-01-15 11:31] LABS: INR 4.6 (0.9-1.1)
[2021-01-15] MEDS ORDERED: ALBUTEROL 0.083% NEBU SOLN 3 ML VIAL NEB STA (11:31)
[2021-01-15 11:32] LABS: ALC (manual) 0.85 K/uL (1.2-3.4); ANC (manual) 8.88 K/uL (1.4-6.5); Anisocytosis Present; Echinocytes 1+; Lymphocytes # (manual) 0.85 K/uL (1.2-3.4); Lymphocytes % (manual) 7.8 %; Monocytes # (manual) 1.04 K/uL (0.11-0.59); Monocytes % (manual) 9.6 %; Myelocytes % (manual) 0.9 %; Neutrophils # (manual) 8.88 K/uL (1.4-6.5); Neutrophils % (manual) 81.7 %; Pappenheimer Bodies 1+; Polychromasia 1+
[2021-01-15 11:34] LABS: Partial Thromboplastin Time 52.2 Seconds (21.0-31.0)
--- NOTE | 2021-01-15 11:46 | Emergency Department Note ---
ED Visit Note I saw this patient independently and discussed with Dr. Hopper who evaluated him separately. Please see his note for assessment and plan. . Resident Activity Tracking Resident Involvement: Resident Care Provided Care Provided: Adult ED
[2021-01-15 11:52] LABS: pH ABG 7.54 (7.35-7.45)
[2021-01-15] MEDS ORDERED: BUMETANIDE 1 MG in SYRINGE 0 ML IV ONE (11:56)
[2021-01-15 12:30] LABS: Appearance Urine Clear (Clear); Blood Urine 2+ (Negative); Color Urine Dark Yellow; Glucose Urine UA Negative (Negative); Ketones Urine Trace (Negative); Leukocyte Esterase Urine Trace (Negative); Nitrite Urine Positive (Negative); Protein Urine 1+ (Negative); Specific Gravity Urine 1.016 (1.000-1.030); Urobilinogen Urine Negative (Negative); pH Urine 5.5 (4.5-7.5)
[2021-01-15 12:35] LABS: Bilirubin Urine 1+ (Negative)
--- NOTE | 2021-01-15 12:44 | History & Physical Report ---
Date of Service January 15, 2021 Assessment & Plan (1) Acute on chronic diastolic (congestive) heart failure: Plan: Patient appears to be in decompensated right sided heart failure with hepatic congestion - diurese with 1mg BUMEX now- may benefit from drip pending hemodynamics and result of initial dosing - may also benefit from additional agents as renal function allows- follow initial response volume offloading is imperative for his forward flow - ECHO in November with evidence of flattened septum EF 45-50% and mild LVH with mild to moderate mitral regurge - POCUS consistent with dilated IVC - hold BB at this time although it is at low dose - May need inotropic/vasopressor support - epi vs. vaso - Pleural effusions appear improved from prior X-ray- defer evaluation to ICU (2) Acute kidney injury: Plan: Acute on chronic- now with hyperkalemia - Will follow BMP q6 hours as he is making urine- as above diurese - Follow Hco3- he was given a dose of NAHCO3 in EMD for his hyperkalemia - If continues to rise in the setting of diuresing or anuric - nephrology consult - UA pending- follow for additional ABX coverage if needed (3) Acute respiratory alkalosis: Plan: Acute respiratory alkalosis with appropriate metabolic response- uncompensated - with hypoxia- patient currently refusing nebulizers and respiratory support - Consider Haldol to ICU if needed (4) Transaminitis: Plan: Currently appears to be from right sided heart failure- evidence of liver injury with elevated INR and hypoglycemic on arrival Liver ultrasound- pending - this is likely also compounding his lactic acidosis - diurese and follow CMP (5) Elevated troponin: Plan: Likely type II with poor renal clearance (6) Edema, peripheral: Plan: As above (7) Malnutrition: Plan: Chronic- nutrition support (8) Atrial fibrillation, permanent: Plan: Afib vs SVT on arrival to [facility]- appears more fib at this time - hold eliquis in the setting of elevated INR - consider vitamin K dosing to ICU (9) MSSA bacteremia: Plan: Continue Nafcillin 2GM IV q4 hours (10) Chronic bilateral pleural effusions: Plan: stable appearing and slightly improved on today's CXR (11) Metabolic encephalopathy: Plan: Multifactorial with elevated liver enzymes, and uremia and hypoxia - may need gentle sedation for respiratory support- defer to ICU precedex vs. Haldol - ammonia level pending - blood cultures pending - urine culture pending (12) Hyperkalemia: Plan: Hold oral potassium supplementation - BMP q6 hours - kaliuresis as above History of Present Illness Chief Complaint: SOB Primary Care Provider: G[facility] [id number] with past medical history of: HFpEF, Afib (on eliqius), CKD III, protein calorie malnutrition, chronic hypoalbuminemia, MSSA bacteremia, decline in physical and mental capabilities. Patient comes to the EMD today from [facility] for alteration in mental status, increase in edema and hypoglycemia. In the EMD it was noted that his potassium was increased to 6.3, HCO3 19, lactate of 6.6, increase in renal indices to 2.9 and elevated LFTS as well as hypoxia. The patient's mental status is clearly worse than previous admissions and has been on a steady decline. The patient is edematous from his mid abdomen to his feet with pitting edema. Patient will be admitted to the ICU for continued diurese support, and possibly inotropic/vasopressor support. Blood and urine cultures have been sent as well as other infectious markers. Troy catheter placed for kaliuresis and diuresis monitoring. Bumex 1mg IV. Patient has had his gallbladder removed in August 2020, since then he has had frequent admissions so for worsening heart failure and was recently treated in late November for MSSA bacteremia which he was treated with Ancef x 6 weeks, in December 24- he was seen for volume overload and continued to be diuresed with his Lasix dose going up to 60mg per day. His kidney function at that time was stable but increasing. He was to be discharged on Nafcillin through 01/17 so will continue this and await other culture results. Allergies Allergy/AdvReac Type Severity Reaction Status Date / Time No Known Allergies Allergy Unknown Verified 01/03/21 14:21 Home Medications Medication Instructions Recorded Confirmed Type allopurinol 300 mg tablet 300 mg PO QAM tab 01/21/19 01/15/21 History apixaban 5 mg tablet (Eliquis) 5 mg PO BID #60 tab 07/26/20 01/15/21 Rx fluoxetine 10 mg capsule (Prozac) 10 mg PO QAM 10/15/20 01/15/21 History docusate sodium 100 mg capsule 100 mg PO BID 11/15/20 01/15/21 History (Colace) mirtazapine 15 mg tablet (Remeron) 15 mg PO QAM 11/15/20 01/15/21 History potassium chloride 20 mEq 20 meq PO TID 12/24/20 01/15/21 History tablet,extended release(part/cryst) (Klor-Con M) ferrous sulfate 325 mg (65 mg 325 mg PO BID 01/15/21 01/15/21 History iron) tablet (Iron (ferrous sulfate)) furosemide 40 mg tablet (Lasix) 40 mg PO QAM 01/15/21 01/15/21 History melatonin 3 mg tablet (Melatin) 3 mg PO HS 01/15/21 01/15/21 History metoprolol succinate 25 mg 12.5 mg PO BID 01/15/21 01/15/21 History tablet,extended release 24 hr (Toprol XL) nitrofurantoin macrocrystal 50 mg 50 mg PO BID 01/15/21 01/15/21 History capsule (Macrodantin) pantoprazole 40 mg tablet,delayed 40 mg PO QAM 01/15/21 01/15/21 History release (Protonix) Past Med/Surg History Medical History Abdominal ascites Abnormal cystoscopy Actinic keratosis Acute CHF (congestive heart failure) Acute respiratory failure with hypoxia Atrial fibrillation with rapid ventricular response (03/2020) Bacteremia Bilateral edema of lower extremity Bilateral nephrolithiasis (2005) Bilateral pleural effusion Bladder cancer (2016) Elevated troponin Per cardiology note 08/05/20: (2) Elevated troponin: -mild elevation likely a supply demand mismatch and not coronary ischemia. 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 -did have elevated heart rate and low blood pressure while in the emergency room. GI bleed Gout Hearing loss Hematuria (2018) History of basal cell carcinoma (2016) Hypercholesteremia Leg edema Male erectile disorder of organic origin Valvular heart disease Vitamin D deficiency Surgical History H/O pyloroplasty H/O shoulder surgery Hx laparoscopic cholecystectomy (08/06/20) Laparoscopic Cholecystectomy with Cholangiogram, Lysis of Adhesions Dr. Givens 08/06/2020 S/P bladder tumor excision with fulguration (2017) S/P knee surgery Status post ORIF of fracture of ankle Family History Grandfather Cancer Social History Smoking Status: Unknown if ever smoked Age Quit Using Tobacco: 32; Second Hand Exposure: No; Preferred Language: Greek Communication Ability: Unable Pool Attendant Required: No Beliefs That Will Affect Care: None marital status: Current Living Situation: Spouse Current Living Situation Comment: lives w/ current occupational status: retired How many Children do You have: 2 Feels Safe at Home: Yes Assistive Devices: Glasses, Hearing Aid - Bilateral and Walker Review of Systems Review of Systems: REVIEW OF SYSTEMS: unable to obtain review of systems secondary to patient's mental status and confusion Physical Exam Physical Exam: PHYSICAL EXAM: General: confused, and uncooperative, pulling at medical equipment Head: Normocephalic, atraumatic ENT: PERRLA, EOMI, no pharyngeal exudate, mucous membranes dry Neuro: AAO x 1, speech clear but not appropriate, strength intact bilaterally 5/5, sensation intact, no focal deficits Chest: equal rise and fall of the chest, no accessory muscle use, no heaves or thrills, scattered crackles and expiratory wheeze on 2LNC, refused breathing treatment Cardiac: iregular rate and rhythm, telemetry reviewed afib, skin warm dry, cap refill 3 seconds, systolic murmur, pitting edema from legs to abdomen GI: NABS x 4 quadrants, soft, nontender to palpation, no rebound, guarding or tenderness : bladder scan for >400 ml, Troy catheter placed, UA pending Extremities: Normal inspection, no peripheral edema or erythema, calfs nontender to palpation Psych: Normal mood and affect Skin: bruising to arms and legs, cut to left foot, patient would not roll over for back examination of buttocks decubitus Results & Data Results & Data ([facility]) Vital Signs (Past 12 Hours) Vital Signs Temp Pulse Resp BP Pulse Ox 01/15/21 12:02 97 H 7 L 01/15/21 11:31 98 H 20 108/78 01/15/21 11:00 100 H 18 100/73 01/15/21 10:54 103 H 0 L 135/65 01/15/21 09:53 36.9 C 124 H 18 108/84 88 L 01/15/21 09:46 136 H 19 108/84 Laboratory Results Abnormal Labs 01/15/21 01/15/21 01/15/21 09:49 10:49 10:49 WBC 10.87 H RBC 3.21 L Hgb 11.8 L Hct 34.3 L MCV 106.9 H MCH 36.8 H RDW Std Deviation 71.7 H RDW Coeff of [place] 21.3 H MPV 12.0 H Neut # (Auto) 8.12 H Lymph # (Auto) 1.13 L [place] # (Auto) 1.34 H Immature Gran # (Auto) 0.22 H Absolute Nucleated RBC 0.77 H Neutrophils # (Manual) 8.88 H Total Absolute Neuts 8.88 H Lymphocytes # (Manual) 0.85 L Total Abs Lymphocytes 0.85 L Monocytes # (Manual) 1.04 H Myelocytes # (Manual) 0.10 H PT 41.0 H INR 4.6 H APTT 52.2 H* ABG pH ABG pCO2 ABG pO2 Potassium Carbon Dioxide Anion Gap BUN Creatinine Glucose POC Glucose 156 H Lactate Total Bilirubin AST ALT Alkaline Phosphatase Troponin I Albumin Globulin Albumin/Globulin Ratio Urine Protein Urine Ketones Urine Blood Urine Nitrite Urine Bilirubin Ur Leukocyte Esterase 01/15/21 01/15/21 01/15/21 10:49 10:49 10:55 WBC RBC Hgb Hct MCV MCH RDW Std Deviation RDW Coeff of [place] MPV Neut # (Auto) Lymph # (Auto) [place] # (Auto) Immature Gran # (Auto) Absolute Nucleated RBC Neutrophils # (Manual) Total Absolute Neuts Lymphocytes # (Manual) Total Abs Lymphocytes Monocytes # (Manual) Myelocytes # (Manual) PT INR APTT ABG pH 7.54 H* ABG pCO2 24 L ABG pO2 57 L Potassium 6.3 H* Carbon Dioxide 19 L Anion Gap 13.0 H BUN 58 H Creatinine 2.90 H Glucose 124 H POC Glucose Lactate 6.6 H* Total Bilirubin 6.7 H AST 1326 H ALT 770 H Alkaline Phosphatase 148 H Troponin I 0.219 H* Albumin 1.9 L Globulin 5.1 H Albumin/Globulin Ratio 0.4 L Urine Protein Urine Ketones Urine Blood Urine Nitrite Urine Bilirubin Ur Leukocyte Esterase 01/15/21 12:06 WBC RBC Hgb Hct MCV MCH RDW Std Deviation RDW Coeff of [place] MPV Neut # (Auto) Lymph # (Auto) [place] # (Auto) Immature Gran # (Auto) Absolute Nucleated RBC Neutrophils # (Manual) Total Absolute Neuts Lymphocytes # (Manual) Total Abs Lymphocytes Monocytes # (Manual) Myelocytes # (Manual) PT INR APTT ABG pH ABG pCO2 ABG pO2 Potassium Carbon Dioxide Anion Gap BUN Creatinine Glucose POC Glucose Lactate Total Bilirubin AST ALT Alkaline Phosphatase Troponin I Albumin Globulin Albumin/Globulin Ratio Urine Protein 1+ H Urine Ketones Trace H Urine Blood 2+ H Urine Nitrite Positive A Urine Bilirubin 1+ H Ur Leukocyte Esterase Trace H Diagnostic Findings Chest X-Ray 01/15/21 10:00 XR chest 1V portable CLINICAL HISTORY: SEPSIS COMPARISON STUDY: December 24, 2020 FINDINGS: No pneumothorax. Small bilateral pleural effusion are seen, improved since prior. Atelectasis/infiltrates are seen at bilateral lower lungs, improved since prior. Cardiomediastinal silhouette is within normal limits in size. No significant pulmonary vascular congestion.. Osseous structures: Severe degenerative changes of bilateral shoulders and spine. IMPRESSION: 1. Interval improvement of bilateral pleural effusions. Atelectasis/infiltrates at bilateral lower lungs are slightly improved since prior. 2. The rest of findings as above. ACT 112: Negative or not required by law. The above report was generated using voice recognition software. It may contain grammatical, syntax or spelling errors. Electronically signed by: Tayla Garrison DO 01/15/2021 10:41 AM Medications Administered Home Medications allopurinol 300 mg tablet 300 mg PO QAM tab 01/21/19 [History Confirmed 01/15/21] apixaban 5 mg tablet (Eliquis) 5 mg PO BID #60 tab 07/26/20 [Rx Confirmed 01/15/21] fluoxetine 10 mg capsule (Prozac) 10 mg PO QAM 10/15/20 [History Confirmed 01/15/21] docusate sodium 100 mg capsule (Colace) 100 mg PO BID 11/15/20 [History Confirmed 01/15/21] mirtazapine 15 mg tablet (Remeron) 15 mg PO QAM 11/15/20 [History Confirmed 01/15/21] potassium chloride 20 mEq tablet,extended release(part/cryst) (Klor-Con M) 20 meq PO TID 12/24/20 [History Confirmed 01/15/21] ferrous sulfate 325 mg (65 mg iron) tablet (Iron (ferrous sulfate)) 325 mg PO BID 01/15/21 [History Confirmed 01/15/21] furosemide 40 mg tablet (Lasix) 40 mg PO QAM 01/15/21 [History Confirmed 01/15/21] melatonin 3 mg tablet (Melatin) 3 mg PO HS 01/15/21 [History Confirmed 01/15/21] metoprolol succinate 25 mg tablet,extended release 24 hr (Toprol XL) 12.5 mg PO BID 01/15/21 [History Confirmed 01/15/21] nitrofurantoin macrocrystal 50 mg capsule (Macrodantin) 50 mg PO BID 01/15/21 [History Confirmed 01/15/21] pantoprazole 40 mg tablet,delayed release (Protonix) 40 mg PO QAM 01/15/21 [History Confirmed 01/15/21] Discontinued Medications Albuterol (Albuterol 0.083% Nebu Soln 3 Ml Vial) 2.5 mg NEB NOW STA Stop: 01/15/21 11:32 Last Admin: 01/15/21 11:54 Dose: Not Given Documented by: [id number] Dextrose (Dextrose 50% 50 Ml Syringe) 50 ml IV NOW ONE Stop: 01/15/21 10:33 Last Admin: 01/15/21 10:40 Dose: 50 ml Documented by: [id number] Sodium Chloride (Nss) 500 mls @ 999 mls/hr IV .Q31M ONE Stop: 01/15/21 11:06 Last Admin: 01/15/21 10:41 Dose: 999 mls/hr Documented by: [id number] Insulin Human Regular (Novolin-R Insulin Per Unit Charge) 10 units IV NOW STA Stop: 01/15/21 10:33 Last Admin: 01/15/21 10:40 Dose: 10 units Documented by: [id number] Cosigned by: [id number] Sodium Bicarbonate (Sodium Bicarb 8.4% Inj 50 Meq/50 Ml Syr) 50 meq IV NOW STA Stop: 01/15/21 10:33 Last Admin: 01/15/21 10:40 Dose: 50 meq Documented by: [id number] Additional Comments: Supraventricular tachycardia Left axis deviation Low voltage QRS Inferior-posterior infarct (cited on or before 27-NOV-2020) Cannot rule out Anterior infarct (cited on or before 27-NOV-2020) Abnormal ECG When compared with ECG of 24-DEC-2020 19:41, Sinus rhythm has replaced Atrial fibrillation Questionable change in QRS duration Code Status & VTE Plan Code Status CODE: Limited- Do not intubate/mechanically ventliate - on form from center care VTE: SCD's, hold chemoprophylaxis in setting of elevated INR VTE Prophylaxis Plan VTE Prophylaxis will be ordered: Yes Critical Care Time Critical Care Time: Yes 31 Supervising Physician Co-Signing Physician Notes During face to face encounter with patient, obtained a physical and history. My history and physical examination did not differ from above. I reviewed above note and agree with it. I discussed plan with EDWARD Turk and the patient. Patient will be admitted for CHF. Due to low BP, patient will need to be admitted to the ICU for close monitoring and likely pressor support. will also need to diurese and will place on cpap/bipap. PG Care Time/CCT Total # of Minutes Spent Total Time Spent with Patient: Total time spent is greater than 50% in coordination of care (as documented) at patient's floor/unit and/or counseling patient: Critical Care Time: Yes Coding Level of Care Code 41193 Initial Inpt Care Lvl 3 Diagnoses Acute on chronic diastolic (congestive) heart failure I50.33 Acute kidney injury N17.9 Acute respiratory alkalosis E87.3 Transaminitis R74.01 Elevated troponin R77.8 Edema, peripheral R60.9 Malnutrition E46 Atrial fibrillation, permanent I48.21 MSSA bacteremia R78.81; B95.61 Chronic bilateral pleural effusions J90 Metabolic encephalopathy G93.41 Hyperkalemia E87.5 Additional Codes Critical Care Time - Critical Care Time: Yes ([id number])
[2021-01-15 13:00] LABS: Cast Urine Automated >30 /lpf (0-5)
[2021-01-15 13:01] LABS: Bacteria Urine Automated 1+ (Negative)
[2021-01-15 13:02] LABS: RBC Urine Automated >30 /hpf (0-4)
--- NOTE | 2021-01-15 13:55 | Critical Care Consultation ---
Date of Consultation January 15, 2021 Assessment & Plan (1) Admitted to intensive care unit: Reason critically ill: 89 yo male with significant PMHx including HFpEF, Afib (on eliqius), CKD III, protein calorie malnutrition, chronic hypoalbuminemia, MSSA bacteremia, decline in physical and mental capabilities admitted with acute on chronic diastolic CHF with hepatic congestion requiring diuresis and close hemodynamic monitoring. NEURO: Metabolic encephalopathy - Mentation waxes and want - Secondary to decompensated CHF - Continue to monitor CARDIAC/VASCULAR: Decompensated diastolic CHF - Appears clinically hypervolemic - BNP elevated at 6809 on admission - Echo 11/20/20: flattened septum consistent w/ RV pressure/volume overload. LVEF borderline reduced at 45-50%. Mild to moderate mitral regurg. IVC mildly dil ated. - CXR 01/15/21: small bilateral pleural effusions slightly improved from evaluation ~3 weeks ago - Continue diuresis with 1mg Bumex as started on admission with close evaluation of response to therapy - Will likely need additional diuresis --> gtt pending hemodynamics and volume response - Per chart review from CHF clinic 1 week ago, lasix increased to 60mg po daily. They also note that dry weight is likely 160-170#. Current weight of 204# (92.5kg on admission). - Hold home beta iris and Eliquis - Consulted Dr. 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 Documentation provided stating that if end-stage, do not want heroic measures -- patient made DNR/DNI status - Continue diuresis with furosemide Chronic Atrial Fibrillation - Holding beta iris and Eliquis in setting of elevated INR - Continuous monitoring on telemetry Elevated troponin - Troponin on admission at 0.219 - Will continue to trend troponins to peak - Likely secondary to hypoxia RESPIRATORY: Acute Respiratory Alkalosis - Refusing nebulizers - Agreeable to CPAP; however, due to periods of apnea patient transitioned to BiPAP for rate support GI/NUTRITION: Transaminitis - Total bili 6.7, AST 1326, ALT 770, and alk phos 148 on admission - Lactic acidosis with lactate of 6.6 - Lactulose 60gm ordered but NG tube unable to be inserted as patient started bleeding; therefore, lactulose held Fluid Overload with Protein-Calorie Malnutrition/Anasarca - Albumin of 1.9 on admission; chronic - Will need nutrition support RENAL/LYTES: LASHAWN on CKD - Now with hyperkalemia, K 6.3 on admission - Received dextrose, insulin, and sodium bicarb in ER; patient refused respiratory support - Closely monitor bicarb with BMP q6h - Troy catheter in place. Strict Is/Os - Maintain negative fluid balance electrolyte replacement per ICU protocol GENITOURINARY: Troy catheter in place. Continue to monitor strict Is/Os. Maintain negative fluid balance. ENDO: Hypoglycemia - Per report, initially with hypoglycemia in 40s; has improved to 124 - Continue to monitor - Hypoglycemic ICU protocol - Hyperglycemia ICU protocol HEME: - INR elevated - Monitor for signs of bleeding ID: MSSA Bacteremia - Diagnosed with MSSA bacteremia on 11/19 during hospitalization at [facility] - Was discharged on Nafcillin 2gm IV q4h; scheduled to complete on 01/17 - Will continue during admission Buttock wound - Per report, patient has wound on buttock but due to uncooperativeness will not permit evaluation - Will continue to monitor and plan for wound care consult Urine cx and blood cx pending Lines/IV Access: PIV DVT Prophylaxis: INR elevated at this time; defer further anticoagulation GI Prophylaxis: Protonix (2) Acute on chronic diastolic (congestive) heart failure: (3) Metabolic encephalopathy: (4) Hyperkalemia: (5) Chronic bilateral pleural effusions: (6) MSSA bacteremia: (7) Acute respiratory alkalosis: (8) Transaminitis: (9) Hyperbilirubinemia: (10) Malnutrition: Supervising Physician Co-Signing Physician Notes Dr. Miles was resident physician during care of patient. I separately evaluated patient for bradshaw portions of the history and the exam. I was present during the critical portion of medical decision making, and I discussed the case with the resident. I generally agree with the findings and plan. Suspect end-stage CHF with poor forward flow causing LASHAWN and hepatic congestion leading to hypoglycemia, elevated INR, transaminitis. Patient appears clinically volume overloaded blood pressure marginal. Reviewed CODE STATUS from nursing facility documentation, he does not want advanced airway techniques and this was confirmed with the patient's . Patient's and son are coming to visit the patient as I do feel he is an active dying process. We will readdress CODE STATUS and goals of care. Patient's blood pressure is 100-110 systolic no clear indication for vasoactive medication would consider placement of Cimarron-Gaurang catheter to help guide resuscitation should we want aggressive/heroic interventions undertaken or transition to a more comfort/palliative approach. Patient is critically ill. Multisystem organ failure with acute kidney injury, hyperkalemia, I have personally spent 60 minutes of critical care time in the direct management of this patient. This is a life/limb threatening event. This includes time spent evaluating patient, direct bedside care, chart review, placing orders, interpretation of diagnostic studies, discussion with consultants, patient, and/or family members regarding treatment decisions, as well as other required patient management activities. This time is exclusive of all separately billable procedures, and teaching time and separate from and in addition to any other critical care service time. History of Present Illness History of Present Illness Mr. Rhodes is an 89 yo male with a PMHx of HFpEF, Afib (on eliqius), CKD III, protein calorie malnutrition, chronic hypoalbuminemia, MSSA bacteremia, decline in physical and mental capabilities who presented from [facility] with concern for altered mentation/agitation, increased edema, and hypoglycemia. It is noted that upon EMS arrival, blood sugar was 48. He was provided dextorse, insulin, and sodium bicarb in the ER. Work up included significant findings of elevated INR of 4.6, ABG 7.54/24/57, severe hyperkalemia 6.3, LASHAWN on CKD with Cr 2.9, lactate 6.6, transaminitis total bili 6.7/AST 1326/ALT 770, elevated troponin 0.219, and elevated BNP 6809. On initial evaluation, patient was accompanied by a sitter who states that he waxes and wanes between calm and agitated states. On my interview/examination he was calm, appropriately answering questions, and was oriented x3. He was initially refusing supplemental O2/respiratory support but later agreed to supplemental O2/CPAP as recommended. Patient with no complaint of pain but full ROS unable to be obtained due to mental status/intermittent confusion. Record review notes that patient has had change in mental status over the past 6 months; most recently noted in CHF clinic f/u note. They also have recommended palliative care discussion regarding goals of care. Allergies Allergy/AdvReac Type Severity Reaction Status Date / Time No Known Allergies Allergy Unknown Verified 01/03/21 14:21 Home Medications Medication Instructions Recorded Confirmed Type allopurinol 300 mg tablet 300 mg PO QAM tab 01/21/19 01/15/21 History apixaban 5 mg tablet (Eliquis) 5 mg PO BID #60 tab 07/26/20 01/15/21 Rx fluoxetine 10 mg capsule (Prozac) 10 mg PO QAM 10/15/20 01/15/21 History docusate sodium 100 mg capsule 100 mg PO BID 11/15/20 01/15/21 History (Colace) mirtazapine 15 mg tablet (Remeron) 15 mg PO QAM 11/15/20 01/15/21 History potassium chloride 20 mEq 20 meq PO TID 12/24/20 01/15/21 History tablet,extended release(part/cryst) (Klor-Con M) ferrous sulfate 325 mg (65 mg 325 mg PO BID 01/15/21 01/15/21 History iron) tablet (Iron (ferrous sulfate)) furosemide 40 mg tablet (Lasix) 40 mg PO QAM 01/15/21 01/15/21 History melatonin 3 mg tablet (Melatin) 3 mg PO HS 01/15/21 01/15/21 History metoprolol succinate 25 mg 12.5 mg PO BID 01/15/21 01/15/21 History tablet,extended release 24 hr (Toprol XL) nitrofurantoin macrocrystal 50 mg 50 mg PO BID 01/15/21 01/15/21 History capsule (Macrodantin) pantoprazole 40 mg tablet,delayed 40 mg PO QAM 01/15/21 01/15/21 History release (Protonix) Patient History Medical History Abdominal ascites Abnormal cystoscopy Actinic keratosis Acute CHF (congestive heart failure) Acute respiratory failure with hypoxia Atrial fibrillation with rapid ventricular response (03/2020) Bacteremia Bilateral edema of lower extremity Bilateral nephrolithiasis (2005) Bilateral pleural effusion Bladder cancer (2017) Elevated troponin Per cardiology note 08/05/20: (2) Elevated troponin: -mild elevation likely a supply demand mismatch and not coronary ischemia. 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 -did have elevated heart rate and low blood pressure while in the emergency room. GI bleed Gout Hearing loss Hematuria (2018) History of basal cell carcinoma (2017) Hypercholesteremia Leg edema Male erectile disorder of organic origin Valvular heart disease Vitamin D deficiency Surgical History H/O pyloroplasty H/O shoulder surgery Hx laparoscopic cholecystectomy (08/06/20) Laparoscopic Cholecystectomy with Cholangiogram, Lysis of Adhesions Dr. Givens 08/06/2020 S/P bladder tumor excision with fulguration (2016) S/P knee surgery Status post ORIF of fracture of ankle Family History Grandfather Cancer Social History Smoking Status: Unknown if ever smoked Age Quit Using Tobacco: 32; Second Hand Exposure: No; Preferred Language: Guatemalan Communication Ability: Unable System Engineer Required: No Beliefs That Will Affect Care: None marital status: Current Living Situation: Spouse Current Living Situation Comment: lives w/ current occupational status: retired How many Children do You have: 2 Feels Safe at Home: Yes Assistive Devices: Glasses, Hearing Aid - Bilateral and Walker Physical Exam Physical Exam: GENERAL: Mentation waxes and wanes. Vital signs reviewed as above. EYES: Anicteric sclerae. HENT: Moist mucous membranes. RESPIRATORY: Diffuse crackles bilaterally. No wheezing. CARDIOVASCULAR: Regular rate and rhythm. + murmur. ABDOMEN: Soft. Edematous. No tenderness to palpation. Normal bowel sounds. EXTREMITIES: Anasarca with edema to mid chest. No tenderness to palpation. SKIN: Warm, dry. NEUROLOGIC: Mentation waxes and wanes however, he was appropriately oriented x3. Awake. Intermittently conversant. PSYCHIATRIC: Intermittently cooperative. Results & Data Results & Data ([facility]) Vital Signs (Past 12 Hours) Vital Signs Temp Pulse Resp BP Pulse Ox 01/15/21 12:02 97 H 7 L 01/15/21 11:31 98 H 20 108/78 01/15/21 11:00 100 H 18 100/73 01/15/21 10:54 103 H 0 L 135/65 01/15/21 09:53 36.9 C 124 H 18 108/84 88 L 01/15/21 09:46 136 H 19 108/84 Laboratory Results 01/15/21 01/15/21 01/15/21 Range/Units 20:06 19:32 18:13 WBC (4.8-10.8) K/uL RBC (4.7-6.1) M/uL Hgb (14.0-18.0) g/dL Hct (42-52) % MCV (80-100) fL MCH (25-34) pg MCHC (32-36) g/dL RDW Std Deviation (36.4-46.3) fL RDW Coeff of Osito (11.5-14.5) % Plt Count (130-400) K/uL MPV (7.4-10.4) fL Immature Gran % (Auto) % Neut % (Auto) % Lymph % (Auto) % Winkler % (Auto) % Eos % (Auto) % Baso % (Auto) % Neut # (Auto) (1.4-6.5) K/uL Lymph # (Auto) (1.2-3.4) K/uL Winkler # (Auto) (0.11-0.59) K/uL Eos # (Auto) (0-0.5) K/uL Baso # (Auto) (0-0.2) K/uL Immature Gran # (Auto) (0.00-0.02) K/uL Absolute Nucleated RBC (0-0) K/uL Nucleated RBC % (auto) % Neutrophils % (Manual) % Lymphocytes % (Manual) % Monocytes % (Manual) % Myelocytes % (Man) % Neutrophils # (Manual) (1.4-6.5) K/uL Total Absolute Neuts (1.4-6.5) K/uL Lymphocytes # (Manual) (1.2-3.4) K/uL Total Abs Lymphocytes (1.2-3.4) K/uL Monocytes # (Manual) (0.11-0.59) K/uL Myelocytes # (Manual) (0-0) K/uL Polychromasia Anisocytosis Pappenheimer Bodies Echinocytes PT (9.0-12.0) Seconds INR (0.9-1.1) APTT (21.0-31.0) Seconds PTT Ratio ABG pH (7.35-7.45) ABG pCO2 (35-46) mmHg ABG pO2 (80-95) mmHg ABG HCO3 (19-24) mmol/L ABG O2 Saturation (90-95) % ABG Base Excess (-9-1.8) mEq/L Jerson Test (Pos) Barometric Pressure mm/Hg Oxygen Given Sodium 141 (136-145) mmol/L Potassium 5.6 H 5.7 H (3.5-5.1) mmol/L Chloride 108 H (98-107) mmol/L Carbon Dioxide 22 (21-32) mmol/L Anion Gap 11.0 (3-11) BUN 58 H (7-18) mg/dl Creatinine 2.80 H (0.6-1.4) mg/dl Est Cr Clr Drug Dosing 20.0 Est GFR ( Amer) 22.3 ml/min Est GFR (Non-Af Amer) 19.3 ml/min BUN/Creatinine Ratio 20.6 H (10-20) Glucose 109 H (70-99) mg/dl POC Glucose 105 H (70-99) mg/dl Lactate (0.4-2.0) mmol/L Calcium 9.7 (8.5-10.1) mg/dl Magnesium (1.8-2.4) mg/dl Total Bilirubin (0.2-1) mg/dl AST (15-37) U/L ALT (12-78) U/L Alkaline Phosphatase (45-117) U/L Ammonia (11-32) umol/L Troponin I (0-0.045) ng/ml C-Reactive Protein Total Protein (6.4-8.2) gm/dl Albumin (3.4-5.0) gm/dl Globulin (2.5-4.0) gm/dl Albumin/Globulin Ratio (0.9-2) Procalcitonin (0-0.5) ng/ml Specimen Hemolysis Urine Color Urine Appearance (Clear) Urine pH (4.5-7.5) Ur Specific [place] (1.000-1.030) Urine Protein (Negative) Urine Glucose (UA) (Negative) Urine Ketones (Negative) Urine Blood (Negative) Urine Nitrite (Negative) Urine Bilirubin (Negative) Urine Urobilinogen (Negative) Ur Leukocyte Esterase (Negative) Urine WBC (Auto) (0-5) /hpf Urine RBC (Auto) (0-4) /hpf U Hyaline Cast (Auto) (0-5) /lpf U Epithel Cells (Auto) (0-5) /lpf Urine Bacteria (Auto) (Negative) Nasal Screen MRSA (PCR) (Negative) COVID-19 Eval Order SARS-CoV-2 (PCR) (Negative) 01/15/21 01/15/21 01/15/21 Range/Units 15:45 15:40 15:40 WBC (4.8-10.8) K/uL RBC (4.7-6.1) M/uL Hgb (14.0-18.0) g/dL Hct (42-52) % MCV (80-100) fL MCH (25-34) pg MCHC (32-36) g/dL RDW Std Deviation (36.4-46.3) fL RDW Coeff of Osito (11.5-14.5) % Plt Count (130-400) K/uL MPV (7.4-10.4) fL Immature Gran % (Auto) % Neut % (Auto) % Lymph % (Auto) % Winkler % (Auto) % Eos % (Auto) % Baso % (Auto) % Neut # (Auto) (1.4-6.5) K/uL Lymph # (Auto) (1.2-3.4) K/uL Winkler # (Auto) (0.11-0.59) K/uL Eos # (Auto) (0-0.5) K/uL Baso # (Auto) (0-0.2) K/uL Immature Gran # (Auto) (0.00-0.02) K/uL Absolute Nucleated RBC (0-0) K/uL Nucleated RBC % (auto) % Neutrophils % (Manual) % Lymphocytes % (Manual) % Monocytes % (Manual) % Myelocytes % (Man) % Neutrophils # (Manual) (1.4-6.5) K/uL Total Absolute Neuts (1.4-6.5) K/uL Lymphocytes # (Manual) (1.2-3.4) K/uL Total Abs Lymphocytes (1.2-3.4) K/uL Monocytes # (Manual) (0.11-0.59) K/uL Myelocytes # (Manual) (0-0) K/uL Polychromasia Anisocytosis Pappenheimer Bodies Echinocytes PT (9.0-12.0) Seconds INR (0.9-1.1) APTT (21.0-31.0) Seconds PTT Ratio ABG pH (7.35-7.45) ABG pCO2 (35-46) mmHg ABG pO2 (80-95) mmHg ABG HCO3 (19-24) mmol/L ABG O2 Saturation (90-95) % ABG Base Excess (-9-1.8) mEq/L Jerson Test (Pos) Barometric Pressure mm/Hg Oxygen Given Sodium 139 (136-145) mmol/L Potassium 6.0 H (3.5-5.1) mmol/L Chloride 107 (98-107) mmol/L Carbon Dioxide 21 (21-32) mmol/L Anion Gap 12.0 H (3-11) BUN 58 H (7-18) mg/dl Creatinine 2.87 H (0.6-1.4) mg/dl Est Cr Clr Drug Dosing Not Reportable Est GFR ( Amer) 21.7 ml/min Est GFR (Non-Af Amer) 18.7 ml/min BUN/Creatinine Ratio 20.3 H (10-20) Glucose 147 H (70-99) mg/dl POC Glucose (70-99) mg/dl Lactate (0.4-2.0) mmol/L Calcium 9.5 (8.5-10.1) mg/dl Magnesium (1.8-2.4) mg/dl Total Bilirubin (0.2-1) mg/dl AST (15-37) U/L ALT (12-78) U/L Alkaline Phosphatase (45-117) U/L Ammonia (11-32) umol/L Troponin I Cancelled 0.202 H* (0-0.045) ng/ml C-Reactive Protein 5.52 H Total Protein (6.4-8.2) gm/dl Albumin (3.4-5.0) gm/dl Globulin (2.5-4.0) gm/dl Albumin/Globulin Ratio (0.9-2) Procalcitonin (0-0.5) ng/ml Specimen Hemolysis Urine Color Urine Appearance (Clear) Urine pH (4.5-7.5) Ur Specific [place] (1.000-1.030) Urine Protein (Negative) Urine Glucose (UA) (Negative) Urine Ketones (Negative) Urine Blood (Negative) Urine Nitrite (Negative) Urine Bilirubin (Negative) Urine Urobilinogen (Negative) Ur Leukocyte Esterase (Negative) Urine WBC (Auto) (0-5) /hpf Urine RBC (Auto) (0-4) /hpf U Hyaline Cast (Auto) (0-5) /lpf U Epithel Cells (Auto) (0-5) /lpf Urine Bacteria (Auto) (Negative) Nasal Screen MRSA (PCR) Negative (Negative) COVID-19 Eval Order SARS-CoV-2 (PCR) (Negative) 01/15/21 01/15/21 01/15/21 Range/Units 15:28 15:16 15:15 WBC (4.8-10.8) K/uL RBC (4.7-6.1) M/uL Hgb (14.0-18.0) g/dL Hct (42-52) % MCV (80-100) fL MCH (25-34) pg MCHC (32-36) g/dL RDW Std Deviation (36.4-46.3) fL RDW Coeff of Osito (11.5-14.5) % Plt Count (130-400) K/uL MPV (7.4-10.4) fL Immature Gran % (Auto) % Neut % (Auto) % Lymph % (Auto) % Winkler % (Auto) % Eos % (Auto) % Baso % (Auto) % Neut # (Auto) (1.4-6.5) K/uL Lymph # (Auto) (1.2-3.4) K/uL Winkler # (Auto) (0.11-0.59) K/uL Eos # (Auto) (0-0.5) K/uL Baso # (Auto) (0-0.2) K/uL Immature Gran # (Auto) (0.00-0.02) K/uL Absolute Nucleated RBC (0-0) K/uL Nucleated RBC % (auto) % Neutrophils % (Manual) % Lymphocytes % (Manual) % Monocytes % (Manual) % Myelocytes % (Man) % Neutrophils # (Manual) (1.4-6.5) K/uL Total Absolute Neuts (1.4-6.5) K/uL Lymphocytes # (Manual) (1.2-3.4) K/uL Total Abs Lymphocytes (1.2-3.4) K/uL Monocytes # (Manual) (0.11-0.59) K/uL Myelocytes # (Manual) (0-0) K/uL Polychromasia Anisocytosis Pappenheimer Bodies Echinocytes PT (9.0-12.0) Seconds INR (0.9-1.1) APTT (21.0-31.0) Seconds PTT Ratio ABG pH (7.35-7.45) ABG pCO2 (35-46) mmHg ABG pO2 (80-95) mmHg ABG HCO3 (19-24) mmol/L ABG O2 Saturation (90-95) % ABG Base Excess (-9-1.8) mEq/L Jerson Test (Pos) Barometric Pressure mm/Hg Oxygen Given Sodium (136-145) mmol/L Potassium (3.5-5.1) mmol/L Chloride (98-107) mmol/L Carbon Dioxide (21-32) mmol/L Anion Gap (3-11) BUN (7-18) mg/dl Creatinine (0.6-1.4) mg/dl Est Cr Clr Drug Dosing Est GFR ( Amer) ml/min Est GFR (Non-Af Amer) ml/min BUN/Creatinine Ratio (10-20) Glucose (70-99) mg/dl POC Glucose 143 H 52 L* 56 L* (70-99) mg/dl Lactate (0.4-2.0) mmol/L Calcium (8.5-10.1) mg/dl Magnesium (1.8-2.4) mg/dl Total Bilirubin (0.2-1) mg/dl AST (15-37) U/L ALT (12-78) U/L Alkaline Phosphatase (45-117) U/L Ammonia (11-32) umol/L Troponin I (0-0.045) ng/ml C-Reactive Protein Total Protein (6.4-8.2) gm/dl Albumin (3.4-5.0) gm/dl Globulin (2.5-4.0) gm/dl Albumin/Globulin Ratio (0.9-2) Procalcitonin (0-0.5) ng/ml Specimen Hemolysis Urine Color Urine Appearance (Clear) Urine pH (4.5-7.5) Ur Specific [place] (1.000-1.030) Urine Protein (Negative) Urine Glucose (UA) (Negative) Urine Ketones (Negative) Urine Blood (Negative) Urine Nitrite (Negative) Urine Bilirubin (Negative) Urine Urobilinogen (Negative) Ur Leukocyte Esterase (Negative) Urine WBC (Auto) (0-5) /hpf Urine RBC (Auto) (0-4) /hpf U Hyaline Cast (Auto) (0-5) /lpf U Epithel Cells (Auto) (0-5) /lpf Urine Bacteria (Auto) (Negative) Nasal Screen MRSA (PCR) (Negative) COVID-19 Eval Order SARS-CoV-2 (PCR) (Negative) 01/15/21 01/15/21 01/15/21 Range/Units 14:07 14:07 13:52 WBC (4.8-10.8) K/uL RBC (4.7-6.1) M/uL Hgb (14.0-18.0) g/dL Hct (42-52) % MCV (80-100) fL MCH (25-34) pg MCHC (32-36) g/dL RDW Std Deviation (36.4-46.3) fL RDW Coeff of Osito (11.5-14.5) % Plt Count (130-400) K/uL MPV (7.4-10.4) fL Immature Gran % (Auto) % Neut % (Auto) % Lymph % (Auto) % [place] % (Auto) % Eos % (Auto) % Baso % (Auto) % Neut # (Auto) (1.4-6.5) K/uL Lymph # (Auto) (1.2-3.4) K/uL [place]ink[place] # (Auto) (0.11-0.59) K/uL Eos # (Auto) (0-0.5) K/uL Baso # (Auto) (0-0.2) K/uL Immature Gran # (Auto) (0.00-0.02) K/uL Absolute Nucleated RBC (0-0) K/uL Nucleated RBC % (auto) % Neutrophils % (Manual) % Lymphocytes % (Manual) % Monocytes % (Manual) % Myelocytes % (Man) % Neutrophils # (Manual) (1.4-6.5) K/uL Total Absolute Neuts (1.4-6.5) K/uL Lymphocytes # (Manual) (1.2-3.4) K/uL Total Abs Lymphocytes (1.2-3.4) K/uL Monocytes # (Manual) (0.11-0.59) K/uL Myelocytes # (Manual) (0-0) K/uL Polychromasia Anisocytosis Pappenheimer Bodies Echinocytes PT (9.0-12.0) Seconds INR (0.9-1.1) APTT (21.0-31.0) Seconds PTT Ratio ABG pH (7.35-7.45) ABG pCO2 (35-46) mmHg ABG pO2 (80-95) mmHg ABG HCO3 (19-24) mmol/L ABG O2 Saturation (90-95) % ABG Base Excess (-9-1.8) mEq/L Jerson Test (Pos) Barometric Pressure mm/Hg Oxygen Given Sodium Cancelled (136-145) mmol/L Potassium Cancelled (3.5-5.1) mmol/L Chloride Cancelled (98-107) mmol/L Carbon Dioxide Cancelled (21-32) mmol/L Anion Gap Cancelled (3-11) BUN Cancelled (7-18) mg/dl Creatinine Cancelled (0.6-1.4) mg/dl Est Cr Clr Drug Dosing Cancelled Est GFR ( Amer) Cancelled ml/min Est GFR (Non-Af Amer) Cancelled ml/min BUN/Creatinine Ratio Cancelled (10-20) Glucose Cancelled (70-99) mg/dl POC Glucose 73 (70-99) mg/dl Lactate (0.4-2.0) mmol/L Calcium Cancelled (8.5-10.1) mg/dl Magnesium (1.8-2.4) mg/dl Total Bilirubin (0.2-1) mg/dl AST (15-37) U/L ALT (12-78) U/L Alkaline Phosphatase (45-117) U/L Ammonia 53.3 H (11-32) umol/L Troponin I (0-0.045) ng/ml C-Reactive Protein Cancelled Total Protein (6.4-8.2) gm/dl Albumin (3.4-5.0) gm/dl Globulin (2.5-4.0) gm/dl Albumin/Globulin Ratio (0.9-2) Procalcitonin (0-0.5) ng/ml Specimen Hemolysis Urine Color Urine Appearance (Clear) Urine pH (4.5-7.5) Ur Specific [place] (1.000-1.030) Urine Protein (Negative) Urine Glucose (UA) (Negative) Urine Ketones (Negative) Urine Blood (Negative) Urine Nitrite (Negative) Urine Bilirubin (Negative) Urine Urobilinogen (Negative) Ur Leukocyte Esterase (Negative) Urine WBC (Auto) (0-5) /hpf Urine RBC (Auto) (0-4) /hpf U Hyaline Cast (Auto) (0-5) /lpf U Epithel Cells (Auto) (0-5) /lpf Urine Bacteria (Auto) (Negative) Nasal Screen MRSA (PCR) (Negative) COVID-19 Eval Order SARS-CoV-2 (PCR) (Negative) 01/15/21 01/15/21 01/15/21 Range/Units 12:36 12:06 11:59 WBC (4.8-10.8) K/uL RBC (4.7-6.1) M/uL Hgb (14.0-18.0) g/dL Hct (42-52) % MCV (80-100) fL MCH (25-34) pg MCHC (32-36) g/dL RDW Std Deviation (36.4-46.3) fL RDW Coeff of Osito (11.5-14.5) % Plt Count (130-400) K/uL MPV (7.4-10.4) fL Immature Gran % (Auto) % Neut % (Auto) % Lymph % (Auto) % [place] % (Auto) % Eos % (Auto) % Baso % (Auto) % Neut # (Auto) (1.4-6.5) K/uL Lymph # (Auto) (1.2-3.4) K/uL [place] # (Auto) (0.11-0.59) K/uL Eos # (Auto) (0-0.5) K/uL Baso # (Auto) (0-0.2) K/uL Immature Gran # (Auto) (0.00-0.02) K/uL Absolute Nucleated RBC (0-0) K/uL Nucleated RBC % (auto) % Neutrophils % (Manual) % Lymphocytes % (Manual) % Monocytes % (Manual) % Myelocytes % (Man) % Neutrophils # (Manual) (1.4-6.5) K/uL Total Absolute Neuts (1.4-6.5) K/uL Lymphocytes # (Manual) (1.2-3.4) K/uL Total Abs Lymphocytes (1.2-3.4) K/uL Monocytes # (Manual) (0.11-0.59) K/uL Myelocytes # (Manual) (0-0) K/uL Polychromasia Anisocytosis Pappenheimer Bodies Echinocytes PT (9.0-12.0) Seconds INR (0.9-1.1) APTT (21.0-31.0) Seconds PTT Ratio ABG pH (7.35-7.45) ABG pCO2 (35-46) mmHg ABG pO2 (80-95) mmHg ABG HCO3 (19-24) mmol/L ABG O2 Saturation (90-95) % ABG Base Excess (-9-1.8) mEq/L Jerson Test (Pos) Barometric Pressure mm/Hg Oxygen Given Sodium (136-145) mmol/L Potassium (3.5-5.1) mmol/L Chloride (98-107) mmol/L Carbon Dioxide (21-32) mmol/L Anion Gap (3-11) BUN (7-18) mg/dl Creatinine (0.6-1.4) mg/dl Est Cr Clr Drug Dosing Est GFR ( Amer) ml/min Est GFR (Non-Af Amer) ml/min BUN/Creatinine Ratio (10-20) Glucose (70-99) mg/dl POC Glucose (70-99) mg/dl Lactate 6.5 H* (0.4-2.0) mmol/L Calcium (8.5-10.1) mg/dl Magnesium (1.8-2.4) mg/dl Total Bilirubin (0.2-1) mg/dl AST (15-37) U/L ALT (12-78) U/L Alkaline Phosphatase (45-117) U/L Ammonia (11-32) umol/L Troponin I (0-0.045) ng/ml C-Reactive Protein Total Protein (6.4-8.2) gm/dl Albumin (3.4-5.0) gm/dl Globulin (2.5-4.0) gm/dl Albumin/Globulin Ratio (0.9-2) Procalcitonin (0-0.5) ng/ml Specimen Hemolysis Urine Color Dark Yellow Urine Appearance Clear (Clear) Urine pH 5.5 (4.5-7.5) Ur Specific [place] 1.016 (1.000-1.030) Urine Protein 1+ H (Negative) Urine Glucose (UA) Negative (Negative) Urine Ketones Trace H (Negative) Urine Blood 2+ H (Negative) Urine Nitrite Positive A (Negative) Urine Bilirubin 1+ H (Negative) Urine Urobilinogen Negative (Negative) Ur Leukocyte Esterase Trace H (Negative) Urine WBC (Auto) 5-10 H (0-5) /hpf Urine RBC (Auto) >30 H (0-4) /hpf U Hyaline Cast (Auto) >30 H (0-5) /lpf U Epithel Cells (Auto) 5-10 H (0-5) /lpf Urine Bacteria (Auto) 1+ H (Negative) Nasal Screen MRSA (PCR) (Negative) COVID-19 Eval Order SARS-CoV-2 (PCR) NEGATIVE (Negative) 01/15/21 01/15/21 01/15/21 Range/Units 11:59 10:55 10:49 WBC (4.8-10.8) K/uL RBC (4.7-6.1) M/uL Hgb (14.0-18.0) g/dL Hct (42-52) % MCV (80-100) fL MCH (25-34) pg MCHC (32-36) g/dL RDW Std Deviation (36.4-46.3) fL RDW Coeff of Osito (11.5-14.5) % Plt Count (130-400) K/uL MPV (7.4-10.4) fL Immature Gran % (Auto) % Neut % (Auto) % Lymph % (Auto) % Winkler % (Auto) % Eos % (Auto) % Baso % (Auto) % Neut # (Auto) (1.4-6.5) K/uL Lymph # (Auto) (1.2-3.4) K/uL Winkler # (Auto) (0.11-0.59) K/uL Eos # (Auto) (0-0.5) K/uL Baso # (Auto) (0-0.2) K/uL Immature Gran # (Auto) (0.00-0.02) K/uL Absolute Nucleated RBC (0-0) K/uL Nucleated RBC % (auto) % Neutrophils % (Manual) % Lymphocytes % (Manual) % Monocytes % (Manual) % Myelocytes % (Man) % Neutrophils # (Manual) (1.4-6.5) K/uL Total Absolute Neuts (1.4-6.5) K/uL Lymphocytes # (Manual) (1.2-3.4) K/uL Total Abs Lymphocytes (1.2-3.4) K/uL Monocytes # (Manual) (0.11-0.59) K/uL Myelocytes # (Manual) (0-0) K/uL Polychromasia Anisocytosis Pappenheimer Bodies Echinocytes PT (9.0-12.0) Seconds INR (0.9-1.1) APTT (21.0-31.0) Seconds PTT Ratio ABG pH 7.54 H* (7.35-7.45) ABG pCO2 24 L (35-46) mmHg ABG pO2 57 L (80-95) mmHg ABG HCO3 20 (19-24) mmol/L ABG O2 Saturation 90.0 (90-95) % ABG Base Excess -1.1 (-9-1.8) mEq/L Jerson Test Pos (Pos) Barometric Pressure 732.3 mm/Hg Oxygen Given RA Sodium (136-145) mmol/L Potassium (3.5-5.1) mmol/L Chloride (98-107) mmol/L Carbon Dioxide (21-32) mmol/L Anion Gap (3-11) BUN (7-18) mg/dl Creatinine (0.6-1.4) mg/dl Est Cr Clr Drug Dosing Est GFR ( Amer) ml/min Est GFR (Non-Af Amer) ml/min BUN/Creatinine Ratio (10-20) Glucose (70-99) mg/dl POC Glucose (70-99) mg/dl Lactate (0.4-2.0) mmol/L Calcium (8.5-10.1) mg/dl Magnesium (1.8-2.4) mg/dl Total Bilirubin (0.2-1) mg/dl AST (15-37) U/L ALT (12-78) U/L Alkaline Phosphatase (45-117) U/L Ammonia (11-32) umol/L Troponin I (0-0.045) ng/ml C-Reactive Protein Total Protein (6.4-8.2) gm/dl Albumin (3.4-5.0) gm/dl Globulin (2.5-4.0) gm/dl Albumin/Globulin Ratio (0.9-2) Procalcitonin 0.31 (0-0.5) ng/ml Specimen Hemolysis Urine Color Urine Appearance (Clear) Urine pH (4.5-7.5) Ur Specific [place] (1.000-1.030) Urine Protein (Negative) Urine Glucose (UA) (Negative) Urine Ketones (Negative) Urine Blood (Negative) Urine Nitrite (Negative) Urine Bilirubin (Negative) Urine Urobilinogen (Negative) Ur Leukocyte Esterase (Negative) Urine WBC (Auto) (0-5) /hpf Urine RBC (Auto) (0-4) /hpf U Hyaline Cast (Auto) (0-5) /lpf U Epithel Cells (Auto) (0-5) /lpf Urine Bacteria (Auto) (Negative) Nasal Screen MRSA (PCR) (Negative) COVID-19 Eval Order Covid19 at [facility] SARS-CoV-2 (PCR) (Negative) 01/15/21 01/15/21 01/15/21 Range/Units 10:49 10:49 10:49 WBC (4.8-10.8) K/uL RBC (4.7-6.1) M/uL Hgb (14.0-18.0) g/dL Hct (42-52) % MCV (80-100) fL MCH (25-34) pg MCHC (32-36) g/dL RDW Std Deviation (36.4-46.3) fL RDW Coeff of Osito (11.5-14.5) % Plt Count (130-400) K/uL MPV (7.4-10.4) fL Immature Gran % (Auto) % Neut % (Auto) % Lymph % (Auto) % Winkler % (Auto) % Eos % (Auto) % Baso % (Auto) % Neut # (Auto) (1.4-6.5) K/uL Lymph # (Auto) (1.2-3.4) K/uL Winkler # (Auto) (0.11-0.59) K/uL Eos # (Auto) (0-0.5) K/uL Baso # (Auto) (0-0.2) K/uL Immature Gran # (Auto) (0.00-0.02) K/uL Absolute Nucleated RBC (0-0) K/uL Nucleated RBC % (auto) % Neutrophils % (Manual) % Lymphocytes % (Manual) % Monocytes % (Manual) % Myelocytes % (Man) % Neutrophils # (Manual) (1.4-6.5) K/uL Total Absolute Neuts (1.4-6.5) K/uL Lymphocytes # (Manual) (1.2-3.4) K/uL Total Abs Lymphocytes (1.2-3.4) K/uL Monocytes # (Manual) (0.11-0.59) K/uL Myelocytes # (Manual) (0-0) K/uL Polychromasia Anisocytosis Pappenheimer Bodies Echinocytes PT 41.0 H (9.0-12.0) Seconds INR 4.6 H (0.9-1.1) APTT 52.2 H* (21.0-31.0) Seconds PTT Ratio 2.0 ABG pH (7.35-7.45) ABG pCO2 (35-46) mmHg ABG pO2 (80-95) mmHg ABG HCO3 (19-24) mmol/L ABG O2 Saturation (90-95) % ABG Base Excess (-9-1.8) mEq/L Jerson Test (Pos) Barometric Pressure mm/Hg Oxygen Given Sodium 137 (136-145) mmol/L Potassium 6.3 H* (3.5-5.1) mmol/L Chloride 105 (98-107) mmol/L Carbon Dioxide 19 L (21-32) mmol/L Anion Gap 13.0 H (3-11) BUN 58 H (7-18) mg/dl Creatinine 2.90 H (0.6-1.4) mg/dl Est Cr Clr Drug Dosing Not Reportable Est GFR ( Amer) 21.4 ml/min Est GFR (Non-Af Amer) 18.5 ml/min BUN/Creatinine Ratio 19.9 (10-20) Glucose 124 H (70-99) mg/dl POC Glucose (70-99) mg/dl Lactate 6.6 H* (0.4-2.0) mmol/L Calcium 9.8 (8.5-10.1) mg/dl Magnesium 1.9 (1.8-2.4) mg/dl Total Bilirubin 6.7 H (0.2-1) mg/dl AST 1326 H (15-37) U/L ALT 770 H (12-78) U/L Alkaline Phosphatase 148 H (45-117) U/L Ammonia (11-32) umol/L Troponin I 0.219 H* (0-0.045) ng/ml C-Reactive Protein Total Protein 7.0 (6.4-8.2) gm/dl Albumin 1.9 L (3.4-5.0) gm/dl Globulin 5.1 H (2.5-4.0) gm/dl Albumin/Globulin Ratio 0.4 L (0.9-2) Procalcitonin (0-0.5) ng/ml Specimen Hemolysis Urine Color Urine Appearance (Clear) Urine pH (4.5-7.5) Ur Specific [place] (1.000-1.030) Urine Protein (Negative) Urine Glucose (UA) (Negative) Urine Ketones (Negative) Urine Blood (Negative) Urine Nitrite (Negative) Urine Bilirubin (Negative) Urine Urobilinogen (Negative) Ur Leukocyte Esterase (Negative) Urine WBC (Auto) (0-5) /hpf Urine RBC (Auto) (0-4) /hpf U Hyaline Cast (Auto) (0-5) /lpf U Epithel Cells (Auto) (0-5) /lpf Urine Bacteria (Auto) (Negative) Nasal Screen MRSA (PCR) (Negative) COVID-19 Eval Order SARS-CoV-2 (PCR) (Negative) 01/15/21 01/15/21 Range/Units 10:49 09:49 WBC 10.87 H (4.8-10.8) K/uL RBC 3.21 L (4.7-6.1) M/uL Hgb 11.8 L (14.0-18.0) g/dL Hct 34.3 L (42-52) % MCV 106.9 H (80-100) fL MCH 36.8 H (25-34) pg MCHC 34.4 (32-36) g/dL RDW Std Deviation 71.7 H (36.4-46.3) fL RDW Coeff of Osito 21.3 H (11.5-14.5) % Plt Count 179 (130-400) K/uL MPV 12.0 H (7.4-10.4) fL Immature Gran % (Auto) 2.0 % Neut % (Auto) 74.7 % Lymph % (Auto) 10.4 % Wink[place] % (Auto) 12.3 % Eos % (Auto) 0.3 % Baso % (Auto) 0.3 % Neut # (Auto) 8.12 H (1.4-6.5) K/uL Lymph # (Auto) 1.13 L (1.2-3.4) K/uL [place]inkler # (Auto) 1.34 H (0.11-0.59) K/uL Eos # (Auto) 0.03 (0-0.5) K/uL Baso # (Auto) 0.03 (0-0.2) K/uL Immature Gran # (Auto) 0.22 H (0.00-0.02) K/uL Absolute Nucleated RBC 0.77 H (0-0) K/uL Nucleated RBC % (auto) 7.1 % Neutrophils % (Manual) 81.7 % Lymphocytes % (Manual) 7.8 % Monocytes % (Manual) 9.6 % Myelocytes % (Man) 0.9 % Neutrophils # (Manual) 8.88 H (1.4-6.5) K/uL Total Absolute Neuts 8.88 H (1.4-6.5) K/uL Lymphocytes # (Manual) 0.85 L (1.2-3.4) K/uL Total Abs Lymphocytes 0.85 L (1.2-3.4) K/uL Monocytes # (Manual) 1.04 H (0.11-0.59) K/uL Myelocytes # (Manual) 0.10 H (0-0) K/uL Polychromasia 1+ Anisocytosis Present Pappenheimer Bodies 1+ Echinocytes 1+ PT (9.0-12.0) Seconds INR (0.9-1.1) APTT (21.0-31.0) Seconds PTT Ratio ABG pH (7.35-7.45) ABG pCO2 (35-46) mmHg ABG pO2 (80-95) mmHg ABG HCO3 (19-24) mmol/L ABG O2 Saturation (90-95) % ABG Base Excess (-9-1.8) mEq/L Jerson Test (Pos) Barometric Pressure mm/Hg Oxygen Given Sodium (136-145) mmol/L Potassium (3.5-5.1) mmol/L Chloride (98-107) mmol/L Carbon Dioxide (21-32) mmol/L Anion Gap (3-11) BUN (7-18) mg/dl Creatinine (0.6-1.4) mg/dl Est Cr Clr Drug Dosing Est GFR ( Amer) ml/min Est GFR (Non-Af Amer) ml/min BUN/Creatinine Ratio (10-20) Glucose (70-99) mg/dl POC Glucose 156 H (70-99) mg/dl Lactate (0.4-2.0) mmol/L Calcium (8.5-10.1) mg/dl Magnesium (1.8-2.4) mg/dl Total Bilirubin (0.2-1) mg/dl AST (15-37) U/L ALT (12-78) U/L Alkaline Phosphatase (45-117) U/L Ammonia (11-32) umol/L Troponin I (0-0.045) ng/ml C-Reactive Protein Total Protein (6.4-8.2) gm/dl Albumin (3.4-5.0) gm/dl Globulin (2.5-4.0) gm/dl Albumin/Globulin Ratio (0.9-2) Procalcitonin (0-0.5) ng/ml Specimen Hemolysis Urine Color Urine Appearance (Clear) Urine pH (4.5-7.5) Ur Specific [place] (1.000-1.030) Urine Protein (Negative) Urine Glucose (UA) (Negative) Urine Ketones (Negative) Urine Blood (Negative) Urine Nitrite (Negative) Urine Bilirubin (Negative) Urine Urobilinogen (Negative) Ur Leukocyte Esterase (Negative) Urine WBC (Auto) (0-5) /hpf Urine RBC (Auto) (0-4) /hpf U Hyaline Cast (Auto) (0-5) /lpf U Epithel Cells (Auto) (0-5) /lpf Urine Bacteria (Auto) (Negative) Nasal Screen MRSA (PCR) (Negative) COVID-19 Eval Order SARS-CoV-2 (PCR) (Negative) Resident Activity Tracking Resident Involvement: Resident Care Provided Care Provided: Adult Hospital Medicine
[2021-01-15] MEDS ORDERED: ICU PROTOCOL FOR HYPERGLYCEMIA PRN (15:26)
[2021-01-15] MEDS ORDERED: LEVALBUTEROL HCL 1.25 MG/3 ML NEB INH PRN (15:26)
[2021-01-15 16:06] LABS: BUN Creatinine Ratio 20.3 (10-20); Blood Urea Nitrogen 58 mg/dl (7-18); C Reactive Protein 5.52 mg/dl (0-0.29); Calcium 9.5 mg/dl (8.5-10.1); Carbon Dioxide 21 mmol/L (21-32); Chloride 107 mmol/L (98-107); Est GFR (African American) 21.7 ml/min; Est GFR (Non-African American) 18.7 ml/min; Glucose 147 mg/dl (70-99); Sodium 139 mmol/L (136-145)
[2021-01-15 16:11] LABS: Troponin I 0.202 ng/ml (0-0.045)
--- NOTE | 2021-01-15 16:32 | Billing Data ---
Date of Service January 15, 2021 Coding Level of Care Code Critical Care 1st - mins
[2021-01-15] MEDS: NAFCILLIN SODIUM 2,000 MG in DEXTROSE 5% 100 ML IV SCH ×2 (17:12→19:43)
[2021-01-15] MEDS ORDERED: LACTULOSE SYRUP 30 GM/45 ML UDP PO STA (17:58)
--- NOTE | 2021-01-15 18:28 | Electrocardiogram Report ---
Test Reason : Blood Pressure : / mmHG Vent. 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
[2021-01-15] MEDS: FERROUS SULFATE 325 MG TAB PO SCH (19:44)
[2021-01-15] MEDS: MELATONIN 3 MG TAB PO SCH (19:44)
[2021-01-15] MEDS: DOCUSATE SODIUM 100 MG CAP PO SCH (19:44)
[2021-01-15 20:08] LABS: BUN Creatinine Ratio 20.6 (10-20); Calcium 9.7 mg/dl (8.5-10.1); Est GFR (African American) 22.3 ml/min; Est GFR (Non-African American) 19.3 ml/min; Potassium 5.6 mmol/L (3.5-5.1)
[2021-01-15] MEDS ORDERED: FUROSEMIDE 40 MG in SYRINGE 0 ML IV ONE (21:18)
[2021-01-15] MEDS ORDERED: FUROSEMIDE 40 MG/4 ML VIAL IV ONE (21:28)
[2021-01-15] MEDS: ALBUMIN 25% 12.5 GM/50 ML VIAL IV SCH ×2 (21:55→21:58)
[2021-01-15 23:35] LABS: BUN Creatinine Ratio 22.1 (10-20); Calcium 9.2 mg/dl (8.5-10.1); Creatinine Clr Calc Pharmacy 20.8 ml/min; Est GFR (African American) 23.3 ml/min; Est GFR (Non-African American) 20.1 ml/min; Phosphorus 3.5 mg/dl (2.5-4.9); Potassium 5.3 mmol/L (3.5-5.1); Troponin I 0.232 ng/ml (0-0.045)
[2021-01-16] MEDS: NAFCILLIN SODIUM 2,000 MG in DEXTROSE 5% 100 ML IV SCH ×7 (00:30→23:27)
[2021-01-16] MEDS ORDERED: DEXTROSE 50% 50 ML SYRINGE IV PRN (04:15)
[2021-01-16] MEDS ORDERED: GLUCAGON FOR INJ 1 MG VIAL SQ PRN (04:15)
[2021-01-16] MEDS ORDERED: GLUCOSE 40% GEL 15 GM TUBE PO PRN (04:15)
[2021-01-16] MEDS ORDERED: CARBOHYDRATES FOR HYPOGLYCEMIA PO PRN (04:15)
[2021-01-16] MEDS ORDERED: GLUCOSE 10 TABS/TUBE PO PRN (04:15)
[2021-01-16] MEDS ORDERED: DEXTROSE 50% 50 ML SYRINGE IV ONE (04:20)
[2021-01-16 04:34] LABS: Basophils # (auto) 0.04 K/uL (0-0.2); Basophils % (auto) 0.5 %; Eosinophils # (auto) 0.08 K/uL (0-0.5); Eosinophils % (auto) 1.1 %; Hemoglobin 10.8 g/dL (14.0-18.0); Immature Granulocytes # (auto) 0.17 K/uL (0.00-0.02); Immature Granulocytes % (auto) 2.3 %; Lymphocytes # (auto) 1.21 K/uL (1.2-3.4); Lymphocytes % (auto) 16.6 %; Mean Corpuscular Hemoglobin 35.9 pg (25-34); Mean Corpuscular Hgb Conc 34.8 g/dL (32-36); Mean Platelet Volume 11.3 fL (7.4-10.4); Monocytes # (auto) 0.73 K/uL (0.11-0.59); Neutrophils # (auto) 5.06 K/uL (1.4-6.5); Neutrophils % (auto) 69.5 %; Nucleated RBC # (auto) 0.29 K/uL (0-0); Platelet Count 138 K/uL (130-400); RDW Coefficient of Variation 21.8 % (11.5-14.5); RDW Standard Deviation 67.2 fL (36.4-46.3); Red Blood Count 3.01 M/uL (4.7-6.1); White Blood Count 7.29 K/uL (4.8-10.8)
[2021-01-16 04:44] LABS: INR 3.2 (0.9-1.1); Prothrombin Time 29.3 Seconds (9.0-12.0)
[2021-01-16 04:58] LABS: Anisocytosis Present; Echinocytes 2+; Pappenheimer Bodies 1+; Polychromasia 1+
[2021-01-16 05:01] LABS: Albumin Level 1.8 gm/dl (3.4-5.0); BUN Creatinine Ratio 22.2 (10-20); Bilirubin Direct 4.8 mg/dl (0-0.2); Calcium 8.8 mg/dl (8.5-10.1); Creatinine Clr Calc Pharmacy 21.4 ml/min; Est GFR (African American) 24.2 ml/min; Est GFR (Non-African American) 20.9 ml/min; Magnesium 1.8 mg/dl (1.8-2.4); Potassium 4.6 mmol/L (3.5-5.1)
[2021-01-16 05:08] LABS: Bilirubin,Total 7.7 mg/dl (0.2-1); Phosphorus 3.4 mg/dl (2.5-4.9); Total Protein 5.7 gm/dl (6.4-8.2); Troponin I 0.235 ng/ml (0-0.045)
--- NOTE | 2021-01-16 07:16 | Hospitalist Progress Note ---
Date of Service January 16, 2021 Assessment & Plan (1) Hypotension: Plan: Pt with persistent hypotension, has HFpEF, but also previous MSSA bacteremia, and now with abnormal ua, will discuss if should broaden antibiotics, can also wait until urine culture results. Possible severe sepsis, POA due to MSSA bacteremia, stage 2-3 pressure ulcer of sacrum, possible UTI, versus other pt with good response with pressors (2) Acute on chronic diastolic (congestive) heart failure: Plan: decompensated HFpEF with hepatic congestion - diurese withIV BUMEX , given protein malnutrition consider albumin only if parenteral diuresis is ineffective - ECHO in November with evidence of flattened septum EF 45-50% and mild LVH with mild to moderate mitral regurge -Weight up compared to HF clinic dry weights discussion if benefit of temporizing dobutamine, will not use unless not responding to other means to avoid arrythmias (3) Acute kidney injury: Plan: Acute on chronic kidney disease stage 3- with hyperkalemia-> potassium now improved, Cr about the same (4) Acute respiratory alkalosis: Plan: Acute respiratory alkalosis with appropriate metabolic response- uncompensated tachypnea from heart failure - with hypoxia-pt responding to oxymask - (5) Transaminitis: Plan: Currently appears to be from hepatic congestion, INR elevated (6) Elevated troponin: Plan: demand ischemia and renal failure impacting troponin levels (7) Edema, peripheral: Plan: As above (8) Malnutrition: Plan: Chronic moderate protein malnutrition- nutrition support (9) Atrial fibrillation, permanent: Plan: Afib vs SVT on arrival to [facility]- appears more fib at this time, blood pressure limints negative chronotropic meds - holding eliquis in the setting of elevated INR - consider vitamin K dosing if inr worsens (10) MSSA bacteremia: Plan: Continue Nafcillin 2GM IV q4 hours, blood culture x4 no growth to date (11) Chronic bilateral pleural effusions: Plan: stable appearing and slightly improved on today's CXR (12) Metabolic encephalopathy: Plan: Multifactorial with elevated liver enzymes, and uremia and hypoxia - may need gentle sedation for respiratory support- defer to ICU precedex vs. Haldol - (13) Hyperkalemia: Admission and Anticipated Discharge Date Admission Date: January 15, 2021 Subjective despite being mortally ill, the pt was able to converse with me and be alert. he is warm to touch and making good urine output, he is on low dose levophed and clinically has right sided heart failure. His poor nutritional status with low protein and albumin influences his fluid retention in third space. Review of Systems Review of Systems: Moderate distress and fatigue no headache, no visual changes no speech or swallowing issues no chest pain, pressure or palpitations no shortness of breath, cough or wheezes no abdominal pain, nausea or vomiting, diarrhea or constipation no dysuria, hematuria or frequency no focal joint pain, does have significant lower extremity swelling no back pain, CVA tenderness or radicular pain no bruising, bleeding or rashes no focal signs of weakness or numbness or altered sensation no complaints of anxiety or depression.. Physical Exam Physical Exam: The patient appeared well nourished and normally developed. Vital signs as documented. Head exam is normocephalic atraumatic Neck is with 3 cm JVD, no thyromegaly or carotid bruits. Lungs are clear to auscultation may be scant rales at the base Cardiac exam, Rhythm is regular.. Significant systolic murmur at the base Abdominal exam reveals normal bowel sounds, soft non tender, no masses Extremities are 3+ edema bilaterally and both pedal pulses are present Neurologic exam is alert and oriented, no focal loss of strength or sensation Skin is without bruises or rashes Psychologically is without concerns for anxiety or depression Results & Data Results & Data ([facility]) Vital Signs (Past 12 Hours) Vital Signs Temp Temp Pulse Resp BP BP Pulse Ox 01/16/21 03:33 88 91 01/16/21 03:24 97.0 F L 88 12 82/56 L 92 01/16/21 02:24 97.0 F L 87 11 L 82/55 L 92 01/16/21 01:24 97.3 F L 87 13 81/55 L 91 01/16/21 00:24 97.5 F L 86 12 71/59 L 89 L 01/16/21 00:09 97.5 F L 86 12 84/60 L 95 01/15/21 23:54 97.5 F L 87 12 78/53 L 96 01/15/21 23:39 97.9 F 86 12 83/62 L 95 01/15/21 23:10 98.1 F 98 H 18 115/42 L 95 01/15/21 22:39 98.1 F 88 11 L 79/60 L 100 01/15/21 22:20 97 H 23 93 01/15/21 22:09 98.2 F 98 H 12 89/59 L 95 01/15/21 21:54 98.2 F 102 H 14 89/52 L 93 01/15/21 21:39 98.1 F 105 H 17 86/58 L 96 01/15/21 21:30 98.1 F 96 H 12 82/62 L 94 01/15/21 21:24 97.9 F 105 H 13 88/61 L 94 01/15/21 21:09 97.7 F 99 H 14 81/58 L 100 01/15/21 20:54 97.7 F 97 H 13 84/58 L 100 01/15/21 20:40 97.5 F L 99 H 15 82/59 L 100 01/15/21 20:39 97.5 F L 95 H 15 76/57 L 100 01/15/21 20:24 97.3 F L 99 H 14 82/58 L 100 01/15/21 20:09 97.2 F L 99 H 13 87/65 L 100 01/15/21 20:00 97.3 F L 99 H 15 82/58 L 100 01/15/21 19:54 97.0 F L 99 H 12 95/74 L 100 01/15/21 19:38 96.8 F L 93 H 15 96/69 L 95 01/15/21 19:24 96.6 F L 103 H 19 93/68 L 92 01/15/21 19:17 95 H 26 H 95 PG Care Time/CCT Total # of Minutes Spent Total Time Spent with Patient: Total time spent is greater than 50% in coordination of care (as documented) at patient's floor/unit and/or counseling patient: Coding Level of Care Code 99601 Subseq Hosp Care Lvl 3 Diagnoses Acute on chronic diastolic (congestive) heart failure I50.33 Acute kidney injury N17.9 Acute respiratory alkalosis E87.3 Transaminitis R74.01 Elevated troponin R77.8 Edema, peripheral R60.9 Malnutrition E46 Atrial fibrillation, permanent I48.21 MSSA bacteremia R78.81; B95.61 Chronic bilateral pleural effusions J90 Metabolic encephalopathy G93.41 Hyperkalemia E87.5 Hypotension I95.9
--- NOTE | 2021-01-16 07:31 | Critical Care Progress Note ---
Date of Service January 16, 2021 Assessment & Plan (1) Admitted to intensive care unit: Plan: Reason critically ill: 89 yo male with significant PMHx including HFpEF, Afib (on eliqius), CKD III, protein calorie malnutrition, chronic hypoalbuminemia, MSSA bacteremia, decline in physical and mental capabilities admitted with acute on chronic diastolic CHF with hepatic congestion requiring diuresis and close hemodynamic monitoring. NEURO: Metabolic encephalopathy - Mentation waxes and wanes - Continue to monitor CARDIAC/VASCULAR: Decompensated diastolic CHF - Appears clinically hypervolemic - BNP elevated at 6809 on admission - Echo 11/20/20: flattened septum consistent w/ RV pressure/volume overload. LVEF borderline reduced at 45-50%. Mild to moderate mitral regurg. IVC mildly dilated. - Will repeat echo today - CXR 01/15/21: small bilateral pleural effusions slightly improved from evaluation ~3 weeks ago - Diuresed with Bumex 1mg followed by Lasix 40mg IV - Currently net negative 1 L - Per chart review from CHF clinic 1 week ago, lasix increased to 60mg po daily. They also note that dry weight is likely 160-170#. Current weight of 204# (92.5kg on admission). 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 Appreciate his recommendations. - Documentation provided stating that if end-stage terminal condition, do not want heroic measures -- patient made DNR/DNI status - Continue diuresis with furosemide Hypotension - Maps in the low 60s, SBP 80s; started patient on low dose levophed - Consider discontinuing levophed and use of dobutamine - Appreciate cardiology recommendations Chronic Atrial Fibrillation - Holding beta iris and Eliquis in setting of elevated INR - Continuous monitoring on telemetry Elevated troponin - Troponin on admission at 0.219; has been stable: 0.219 --> 0.232 --> 0.235 - Will continue to trend troponins to peak - Likely secondary to hypoxia RESPIRATORY: Acute Respiratory Alkalosis - Refusing nebulizers - Agreeable to CPAP; however, due to periods of apnea patient transitioned to BiPAP for rate support on 01/15 - Currently on oxymask at 3L, maintaining O2 saturations > 92% GI/NUTRITION: Transaminitis, improving - Total bili 6.7, AST 1326, ALT 770, and alk phos 148 on admission Repeat: AST 993, ALT 623, - Lactic acidosis with lactate of 6.6 on admission; lactate significantly improved to 1.7 Fluid Overload with Protein-Calorie Malnutrition/Anasarca - Albumin of 1.9 on admission; chronic - Will need nutrition support RENAL/LYTES: LASHAWN on CKD - Now with hyperkalemia, K 6.3 on admission; hyperkalemia improving and is 4.6 today - Received dextrose, insulin, and sodium bicarb in ER; patient refused respiratory support - Closely monitor bicarb with BMP q6h - Troy catheter in place. Strict Is/Os - Maintain negative fluid balance Electrolyte replacement per ICU protocol GENITOURINARY: Troy catheter in place. Continue to monitor strict Is/Os. Maintain negative fluid balance. ENDO: Hypoglycemia - Per report, initially with hypoglycemia in 40s; has improved to 124 - Continue to monitor - Hypoglycemic ICU protocol - Hyperglycemia ICU protocol HEME: - INR elevated - Monitor for signs of bleeding ID: MSSA Bacteremia - Diagnosed with MSSA bacteremia on 11/19 during hospitalization at [facility] - Was discharged on Nafcillin 2gm IV q4h; scheduled to complete on 01/17 - Will continue during admission Buttock wound - Per report, patient has wound on buttock but due to uncooperativeness will not permit evaluation - Will continue to monitor and plan for wound care consult Urine cx and blood cx pending Lines/IV Access: PIV DVT Prophylaxis: INR elevated at this time; defer further anticoagulation GI Prophylaxis: Protonix (2) Acute on chronic diastolic (congestive) heart failure: (3) Metabolic encephalopathy: (4) Hyperkalemia: (5) Chronic bilateral pleural effusions: (6) MSSA bacteremia: (7) Acute respiratory alkalosis: (8) Transaminitis: (9) Hyperbilirubinemia: (10) Malnutrition: Admission and Anticipated Discharge Date Admission Date: January 15, 2021 Supervising Physician Co-Signing Physician Notes Dr. Miles was resident physician during care of patient. I separately evaluated patient for bradshaw portions of the history and the exam. I was present during the critical portion of medical decision making, and I discussed the case with the resident. I generally agree with the findings and plan. Patient had significant improvement in her on overnight, creatinine, transaminitis, potassium all slowly improving. Patient became hypotensive this morning will use vasopressors through the periphery at this time if requires extended course would consider central venous access. Patient was discussed in multidisciplinary rounds I have personally spent 45 minutes of critical care time in the direct management of this patient. This is a life/limb threatening event. This includes time spent evaluating patient, direct bedside care, chart review, placing orders, interpretation of diagnostic studies, discussion with consultants, patient, and/or family members regarding treatment decisions, as well as other required patient management activities. This time is exclusive of all separately billable procedures, and teaching time and separate from and in addition to any other critical care service time. Subjective Patient seen and evaluated at bedside this morning. Intermittently confused but A/O x2 (person and place); unaware of reason for being in hospital. Complains of b/l ankle pain, which is noted to be chronic. Otherwise no specific complaints. Review of Systems Constitutional: no fever and no chills Eyes: + dry eyes Ear, Nose, Mouth, Throat: no problem reported Respiratory: no cough and no dyspnea Cardiovascular: no chest pain Gastrointestinal: no abdominal pain, no nausea and no vomiting Genitourinary: no problem reported Musculoskeletal: no problem reported Neurologic: no dizziness and no headache(s) Physical Exam Physical Exam: GENERAL: Elderly male in no acute distress. Vital signs reviewed as above. EYES: EOMI. Slightly icteric sclerae. HENT: Dry mucous membranes. RESPIRATORY: Crackles appreciated bilaterally. CARDIOVASCULAR: Regular rate. Irregularly irregular rhythm. + murmur. + JVD. ABDOMEN: Soft, non-tender and non-distended. Normal bowel sounds. EXTREMITIES: 2+ BLE edema. Non-tender. SKIN: Warm, dry. NEUROLOGIC: A/O x2. Speech clear. No focal neurological deficits. PSYCHIATRIC: Cooperative. Results & Data Results & Data ([facility]) Vital Signs (Past 12 Hours) Vital Signs Temp Temp Pulse Resp BP BP Pulse Ox 01/16/21 03:33 88 91 01/16/21 03:24 36.1 C L 88 12 82/56 L 92 01/16/21 02:24 36.1 C L 87 11 L 82/55 L 92 01/16/21 01:24 36.3 C L 87 13 81/55 L 91 01/16/21 00:24 36.4 C L 86 12 71/59 L 89 L 01/16/21 00:09 36.4 C L 86 12 84/60 L 95 01/15/21 23:54 36.4 C L 87 12 78/53 L 96 01/15/21 23:39 36.6 C 86 12 83/62 L 95 01/15/21 23:10 36.7 C 98 H 18 115/42 L 95 01/15/21 22:39 36.7 C 88 11 L 79/60 L 100 01/15/21 22:20 97 H 23 93 01/15/21 22:09 36.8 C 98 H 12 89/59 L 95 01/15/21 21:54 36.8 C 102 H 14 89/52 L 93 01/15/21 21:39 36.7 C 105 H 17 86/58 L 96 01/15/21 21:30 36.7 C 96 H 12 82/62 L 94 01/15/21 21:24 36.6 C 105 H 13 88/61 L 94 01/15/21 21:09 36.5 C 99 H 14 81/58 L 100 01/15/21 20:54 36.5 C 97 H 13 84/58 L 100 01/15/21 20:40 36.4 C L 99 H 15 82/59 L 100 01/15/21 20:39 36.4 C L 95 H 15 76/57 L 100 01/15/21 20:24 36.3 C L 99 H 14 82/58 L 100 01/15/21 20:09 36.2 C L 99 H 13 87/65 L 100 01/15/21 20:00 36.3 C L 99 H 15 82/58 L 100 01/15/21 19:54 36.1 C L 99 H 12 95/74 L 100 01/15/21 19:38 36.0 C L 93 H 15 96/69 L 95 Laboratory Results 01/16/21 01/16/21 01/16/21 Range/Units 07:16 04:55 04:25 WBC (4.8-10.8) K/uL RBC (4.7-6.1) M/uL Hgb (14.0-18.0) g/dL Hct (42-52) % MCV (80-100) fL MCH (25-34) pg MCHC (32-36) g/dL RDW Std Deviation (36.4-46.3) fL RDW Coeff of Osito (11.5-14.5) % Plt Count (130-400) K/uL MPV (7.4-10.4) fL Immature Gran % (Auto) % Neut % (Auto) % Lymph % (Auto) % Haines % (Auto) % Eos % (Auto) % Baso % (Auto) % Neut # (Auto) (1.4-6.5) K/uL Lymph # (Auto) (1.2-3.4) K/uL Haines # (Auto) (0.11-0.59) K/uL Eos # (Auto) (0-0.5) K/uL Baso # (Auto) (0-0.2) K/uL Immature Gran # (Auto) (0.00-0.02) K/uL Absolute Nucleated RBC (0-0) K/uL Nucleated RBC % (auto) % Neutrophils % (Manual) % Lymphocytes % (Manual) % Monocytes % (Manual) % Myelocytes % (Man) % Neutrophils # (Manual) (1.4-6.5) K/uL Total Absolute Neuts (1.4-6.5) K/uL Lymphocytes # (Manual) (1.2-3.4) K/uL Total Abs Lymphocytes (1.2-3.4) K/uL Monocytes # (Manual) (0.11-0.59) K/uL Myelocytes # (Manual) (0-0) K/uL Polychromasia Anisocytosis Pappenheimer Bodies Echinocytes PT (9.0-12.0) Seconds INR (0.9-1.1) APTT (21.0-31.0) Seconds PTT Ratio ABG pH (7.35-7.45) ABG pCO2 (35-46) mmHg ABG pO2 (80-95) mmHg ABG HCO3 (19-24) mmol/L ABG O2 Saturation (90-95) % ABG Base Excess (-9-1.8) mEq/L Jerson Test (Pos) Barometric Pressure mm/Hg Oxygen Given Sodium (136-145) mmol/L Potassium (3.5-5.1) mmol/L Chloride (98-107) mmol/L Carbon Dioxide (21-32) mmol/L Anion Gap (3-11) BUN (7-18) mg/dl Creatinine (0.6-1.4) mg/dl Est Cr Clr Drug Dosing Est GFR ( Amer) ml/min Est GFR (Non-Af Amer) ml/min BUN/Creatinine Ratio (10-20) Glucose (70-99) mg/dl POC Glucose 114 H 159 H (70-99) mg/dl Lactate 1.7 (0.4-2.0) mmol/L Calcium (8.5-10.1) mg/dl Ionized Calcium (1.12-1.32) mmol/L Phosphorus (2.5-4.9) mg/dl Magnesium (1.8-2.4) mg/dl Total Bilirubin (0.2-1) mg/dl Direct Bilirubin (0-0.2) mg/dl AST (15-37) U/L ALT (12-78) U/L Alkaline Phosphatase (45-117) U/L Ammonia (11-32) umol/L Troponin I (0-0.045) ng/ml C-Reactive Protein Total Protein (6.4-8.2) gm/dl Albumin (3.4-5.0) gm/dl Globulin (2.5-4.0) gm/dl Albumin/Globulin Ratio (0.9-2) Procalcitonin (0-0.5) ng/ml Specimen Hemolysis Urine Color Urine Appearance (Clear) Urine pH (4.5-7.5) Ur Specific [place] (1.000-1.030) Urine Protein (Negative) Urine Glucose (UA) (Negative) Urine Ketones (Negative) Urine Blood (Negative) Urine Nitrite (Negative) Urine Bilirubin (Negative) Urine Urobilinogen (Negative) Ur Leukocyte Esterase (Negative) Urine WBC (Auto) (0-5) /hpf Urine RBC (Auto) (0-4) /hpf U Hyaline Cast (Auto) (0-5) /lpf U Epithel Cells (Auto) (0-5) /lpf Urine Bacteria (Auto) (Negative) Nasal Screen MRSA (PCR) (Negative) Stool Occult Bld Scrn (Negative) COVID-19 Eval Order SARS-CoV-2 (PCR) (Negative) 01/16/21 01/16/21 01/16/21 Range/Units 04:25 04:25 04:25 WBC 7.29 (4.8-10.8) K/uL RBC 3.01 L (4.7-6.1) M/uL Hgb 10.8 L (14.0-18.0) g/dL Hct 31.0 L (42-52) % MCV 103.0 H (80-100) fL MCH 35.9 H (25-34) pg MCHC 34.8 (32-36) g/dL RDW Std Deviation 67.2 H (36.4-46.3) fL RDW Coeff of Osito 21.8 H (11.5-14.5) % Plt Count 138 (130-400) K/uL MPV 11.3 H (7.4-10.4) fL Immature Gran % (Auto) 2.3 % Neut % (Auto) 69.5 % Lymph % (Auto) 16.6 % Haines % (Auto) 10.0 % Eos % (Auto) 1.1 % Baso % (Auto) 0.5 % Neut # (Auto) 5.06 (1.4-6.5) K/uL Lymph # (Auto) 1.21 (1.2-3.4) K/uL Haines # (Auto) 0.73 H (0.11-0.59) K/uL Eos # (Auto) 0.08 (0-0.5) K/uL Baso # (Auto) 0.04 (0-0.2) K/uL Immature Gran # (Auto) 0.17 H (0.00-0.02) K/uL Absolute Nucleated RBC 0.29 H (0-0) K/uL Nucleated RBC % (auto) 4.0 % Neutrophils % (Manual) % Lymphocytes % (Manual) % Monocytes % (Manual) % Myelocytes % (Man) % Neutrophils # (Manual) (1.4-6.5) K/uL Total Absolute Neuts (1.4-6.5) K/uL Lymphocytes # (Manual) (1.2-3.4) K/uL Total Abs Lymphocytes (1.2-3.4) K/uL Monocytes # (Manual) (0.11-0.59) K/uL Myelocytes # (Manual) (0-0) K/uL Polychromasia 1+ Anisocytosis Present Pappenheimer Bodies 1+ Echinocytes 2+ PT 29.3 H (9.0-12.0) Seconds INR 3.2 H (0.9-1.1) APTT (21.0-31.0) Seconds PTT Ratio ABG pH (7.35-7.45) ABG pCO2 (35-46) mmHg ABG pO2 (80-95) mmHg ABG HCO3 (19-24) mmol/L ABG O2 Saturation (90-95) % ABG Base Excess (-9-1.8) mEq/L Jerson Test (Pos) Barometric Pressure mm/Hg Oxygen Given Sodium 139 (136-145) mmol/L Potassium 4.6 (3.5-5.1) mmol/L Chloride 109 H (98-107) mmol/L Carbon Dioxide 26 (21-32) mmol/L Anion Gap 4.0 (3-11) BUN 58 H (7-18) mg/dl Creatinine 2.62 H (0.6-1.4) mg/dl Est Cr Clr Drug Dosing 21.4 Est GFR ( Amer) 24.2 ml/min Est GFR (Non-Af Amer) 20.9 ml/min BUN/Creatinine Ratio 22.2 H (10-20) Glucose 84 (70-99) mg/dl POC Glucose (70-99) mg/dl Lactate (0.4-2.0) mmol/L Calcium 8.8 (8.5-10.1) mg/dl Ionized Calcium (1.12-1.32) mmol/L Phosphorus 3.4 (2.5-4.9) mg/dl Magnesium 1.8 (1.8-2.4) mg/dl Total Bilirubin 7.7 H (0.2-1) mg/dl Direct Bilirubin 4.8 H (0-0.2) mg/dl AST 993 H (15-37) U/L ALT 623 H (12-78) U/L Alkaline Phosphatase 122 H (45-117) U/L Ammonia (11-32) umol/L Troponin I 0.235 H* (0-0.045) ng/ml C-Reactive Protein Total Protein 5.7 L (6.4-8.2) gm/dl Albumin 1.8 L (3.4-5.0) gm/dl Globulin (2.5-4.0) gm/dl Albumin/Globulin Ratio (0.9-2) Procalcitonin (0-0.5) ng/ml Specimen Hemolysis Urine Color Urine Appearance (Clear) Urine pH (4.5-7.5) Ur Specific [place] (1.000-1.030) Urine Protein (Negative) Urine Glucose (UA) (Negative) Urine Ketones (Negative) Urine Blood (Negative) Urine Nitrite (Negative) Urine Bilirubin (Negative) Urine Urobilinogen (Negative) Ur Leukocyte Esterase (Negative) Urine WBC (Auto) (0-5) /hpf Urine RBC (Auto) (0-4) /hpf U Hyaline Cast (Auto) (0-5) /lpf U Epithel Cells (Auto) (0-5) /lpf Urine Bacteria (Auto) (Negative) Nasal Screen MRSA (PCR) (Negative) Stool Occult Bld Scrn (Negative) COVID-19 Eval Order SARS-CoV-2 (PCR) (Negative) 01/16/21 01/15/21 01/15/21 Range/Units 04:06 23:20 23:18 WBC (4.8-10.8) K/uL RBC (4.7-6.1) M/uL Hgb (14.0-18.0) g/dL Hct (42-52) % MCV (80-100) fL MCH (25-34) pg MCHC (32-36) g/dL RDW Std Deviation (36.4-46.3) fL RDW Coeff of Osito (11.5-14.5) % Plt Count (130-400) K/uL MPV (7.4-10.4) fL Immature Gran % (Auto) % Neut % (Auto) % Lymph % (Auto) % Haines % (Auto) % Eos % (Auto) % Baso % (Auto) % Neut # (Auto) (1.4-6.5) K/uL Lymph # (Auto) (1.2-3.4) K/uL Haines # (Auto) (0.11-0.59) K/uL Eos # (Auto) (0-0.5) K/uL Baso # (Auto) (0-0.2) K/uL Immature Gran # (Auto) (0.00-0.02) K/uL Absolute Nucleated RBC (0-0) K/uL Nucleated RBC % (auto) % Neutrophils % (Manual) % Lymphocytes % (Manual) % Monocytes % (Manual) % Myelocytes % (Man) % Neutrophils # (Manual) (1.4-6.5) K/uL Total Absolute Neuts (1.4-6.5) K/uL Lymphocytes # (Manual) (1.2-3.4) K/uL Total Abs Lymphocytes (1.2-3.4) K/uL Monocytes # (Manual) (0.11-0.59) K/uL Myelocytes # (Manual) (0-0) K/uL Polychromasia Anisocytosis Pappenheimer Bodies Echinocytes PT (9.0-12.0) Seconds INR (0.9-1.1) APTT (21.0-31.0) Seconds PTT Ratio ABG pH (7.35-7.45) ABG pCO2 (35-46) mmHg ABG pO2 (80-95) mmHg ABG HCO3 (19-24) mmol/L ABG O2 Saturation (90-95) % ABG Base Excess (-9-1.8) mEq/L Jerson Test (Pos) Barometric Pressure mm/Hg Oxygen Given Sodium (136-145) mmol/L Potassium (3.5-5.1) mmol/L Chloride (98-107) mmol/L Carbon Dioxide (21-32) mmol/L Anion Gap (3-11) BUN (7-18) mg/dl Creatinine (0.6-1.4) mg/dl Est Cr Clr Drug Dosing Est GFR ( Amer) ml/min Est GFR (Non-Af Amer) ml/min BUN/Creatinine Ratio (10-20) Glucose (70-99) mg/dl POC Glucose 70 (70-99) mg/dl Lactate (0.4-2.0) mmol/L Calcium (8.5-10.1) mg/dl Ionized Calcium 1.11 L (1.12-1.32) mmol/L Phosphorus (2.5-4.9) mg/dl Magnesium (1.8-2.4) mg/dl Total Bilirubin (0.2-1) mg/dl Direct Bilirubin (0-0.2) mg/dl AST (15-37) U/L ALT (12-78) U/L Alkaline Phosphatase (45-117) U/L Ammonia (11-32) umol/L Troponin I (0-0.045) ng/ml C-Reactive Protein Total Protein (6.4-8.2) gm/dl Albumin (3.4-5.0) gm/dl Globulin (2.5-4.0) gm/dl Albumin/Globulin Ratio (0.9-2) Procalcitonin (0-0.5) ng/ml Specimen Hemolysis Urine Color Urine Appearance (Clear) Urine pH (4.5-7.5) Ur Specific [place] (1.000-1.030) Urine Protein (Negative) Urine Glucose (UA) (Negative) Urine Ketones (Negative) Urine Blood (Negative) Urine Nitrite (Negative) Urine Bilirubin (Negative) Urine Urobilinogen (Negative) Ur Leukocyte Esterase (Negative) Urine WBC (Auto) (0-5) /hpf Urine RBC (Auto) (0-4) /hpf U Hyaline Cast (Auto) (0-5) /lpf U Epithel Cells (Auto) (0-5) /lpf Urine Bacteria (Auto) (Negative) Nasal Screen MRSA (PCR) (Negative) Stool Occult Bld Scrn Positive A (Negative) COVID-19 Eval Order SARS-CoV-2 (PCR) (Negative) 01/15/21 01/15/21 01/15/21 Range/Units 22:44 22:44 20:06 WBC (4.8-10.8) K/uL RBC (4.7-6.1) M/uL Hgb (14.0-18.0) g/dL Hct (42-52) % MCV (80-100) fL MCH (25-34) pg MCHC (32-36) g/dL RDW Std Deviation (36.4-46.3) fL RDW Coeff of Osito (11.5-14.5) % Plt Count (130-400) K/uL MPV (7.4-10.4) fL Immature Gran % (Auto) % Neut % (Auto) % Lymph % (Auto) % Haines % (Auto) % Eos % (Auto) % Baso % (Auto) % Neut # (Auto) (1.4-6.5) K/uL Lymph # (Auto) (1.2-3.4) K/uL Haines # (Auto) (0.11-0.59) K/uL Eos # (Auto) (0-0.5) K/uL Baso # (Auto) (0-0.2) K/uL Immature Gran # (Auto) (0.00-0.02) K/uL Absolute Nucleated RBC (0-0) K/uL Nucleated RBC % (auto) % Neutrophils % (Manual) % Lymphocytes % (Manual) % Monocytes % (Manual) % Myelocytes % (Man) % Neutrophils # (Manual) (1.4-6.5) K/uL Total Absolute Neuts (1.4-6.5) K/uL Lymphocytes # (Manual) (1.2-3.4) K/uL Total Abs Lymphocytes (1.2-3.4) K/uL Monocytes # (Manual) (0.11-0.59) K/uL Myelocytes # (Manual) (0-0) K/uL Polychromasia Anisocytosis Pappenheimer Bodies Echinocytes PT (9.0-12.0) Seconds INR (0.9-1.1) APTT (21.0-31.0) Seconds PTT Ratio ABG pH (7.35-7.45) ABG pCO2 (35-46) mmHg ABG pO2 (80-95) mmHg ABG HCO3 (19-24) mmol/L ABG O2 Saturation (90-95) % ABG Base Excess (-9-1.8) mEq/L Jerson Test (Pos) Barometric Pressure mm/Hg Oxygen Given Sodium 142 (136-145) mmol/L Potassium 5.3 H (3.5-5.1) mmol/L Chloride 108 H (98-107) mmol/L Carbon Dioxide 25 (21-32) mmol/L Anion Gap 9.0 (3-11) BUN 60 H (7-18) mg/dl Creatinine 2.70 H (0.6-1.4) mg/dl Est Cr Clr Drug Dosing 20.8 Est GFR ( Amer) 23.3 ml/min Est GFR (Non-Af Amer) 20.1 ml/min BUN/Creatinine Ratio 22.1 H (10-20) Glucose 92 (70-99) mg/dl POC Glucose 105 H (70-99) mg/dl Lactate 2.3 H* (0.4-2.0) mmol/L Calcium 9.2 (8.5-10.1) mg/dl Ionized Calcium (1.12-1.32) mmol/L Phosphorus 3.5 (2.5-4.9) mg/dl Magnesium 2.0 (1.8-2.4) mg/dl Total Bilirubin (0.2-1) mg/dl Direct Bilirubin (0-0.2) mg/dl AST (15-37) U/L ALT (12-78) U/L Alkaline Phosphatase (45-117) U/L Ammonia (11-32) umol/L Troponin I 0.232 H* (0-0.045) ng/ml C-Reactive Protein Total Protein (6.4-8.2) gm/dl Albumin (3.4-5.0) gm/dl Globulin (2.5-4.0) gm/dl Albumin/Globulin Ratio (0.9-2) Procalcitonin (0-0.5) ng/ml Specimen Hemolysis Urine Color Urine Appearance (Clear) Urine pH (4.5-7.5) Ur Specific [place] (1.000-1.030) Urine Protein (Negative) Urine Glucose (UA) (Negative) Urine Ketones (Negative) Urine Blood (Negative) Urine Nitrite (Negative) Urine Bilirubin (Negative) Urine Urobilinogen (Negative) Ur Leukocyte Esterase (Negative) Urine WBC (Auto) (0-5) /hpf Urine RBC (Auto) (0-4) /hpf U Hyaline Cast (Auto) (0-5) /lpf U Epithel Cells (Auto) (0-5) /lpf Urine Bacteria (Auto) (Negative) Nasal Screen MRSA (PCR) (Negative) Stool Occult Bld Scrn (Negative) COVID-19 Eval Order SARS-CoV-2 (PCR) (Negative) 01/15/21 01/15/21 01/15/21 Range/Units 19:32 18:13 15:45 WBC (4.8-10.8) K/uL RBC (4.7-6.1) M/uL Hgb (14.0-18.0) g/dL Hct (42-52) % MCV (80-100) fL MCH (25-34) pg MCHC (32-36) g/dL RDW Std Deviation (36.4-46.3) fL RDW Coeff of Osito (11.5-14.5) % Plt Count (130-400) K/uL MPV (7.4-10.4) fL Immature Gran % (Auto) % Neut % (Auto) % Lymph % (Auto) % Haines % (Auto) % Eos % (Auto) % Baso % (Auto) % Neut # (Auto) (1.4-6.5) K/uL Lymph # (Auto) (1.2-3.4) K/uL Haines # (Auto) (0.11-0.59) K/uL Eos # (Auto) (0-0.5) K/uL Baso # (Auto) (0-0.2) K/uL Immature Gran # (Auto) (0.00-0.02) K/uL Absolute Nucleated RBC (0-0) K/uL Nucleated RBC % (auto) % Neutrophils % (Manual) % Lymphocytes % (Manual) % Monocytes % (Manual) % Myelocytes % (Man) % Neutrophils # (Manual) (1.4-6.5) K/uL Total Absolute Neuts (1.4-6.5) K/uL Lymphocytes # (Manual) (1.2-3.4) K/uL Total Abs Lymphocytes (1.2-3.4) K/uL Monocytes # (Manual) (0.11-0.59) K/uL Myelocytes # (Manual) (0-0) K/uL Polychromasia Anisocytosis Pappenheimer Bodies Echinocytes PT (9.0-12.0) Seconds INR (0.9-1.1) APTT (21.0-31.0) Seconds PTT Ratio ABG pH (7.35-7.45) ABG pCO2 (35-46) mmHg ABG pO2 (80-95) mmHg ABG HCO3 (19-24) mmol/L ABG O2 Saturation (90-95) % ABG Base Excess (-9-1.8) mEq/L Jerson Test (Pos) Barometric Pressure mm/Hg Oxygen Given Sodium 141 (136-145) mmol/L Potassium 5.6 H 5.7 H (3.5-5.1) mmol/L Chloride 108 H (98-107) mmol/L Carbon Dioxide 22 (21-32) mmol/L Anion Gap 11.0 (3-11) BUN 58 H (7-18) mg/dl Creatinine 2.80 H (0.6-1.4) mg/dl Est Cr Clr Drug Dosing 20.0 Est GFR ( Amer) 22.3 ml/min Est GFR (Non-Af Amer) 19.3 ml/min BUN/Creatinine Ratio 20.6 H (10-20) Glucose 109 H (70-99) mg/dl POC Glucose (70-99) mg/dl Lactate (0.4-2.0) mmol/L Calcium 9.7 (8.5-10.1) mg/dl Ionized Calcium (1.12-1.32) mmol/L Phosphorus (2.5-4.9) mg/dl Magnesium (1.8-2.4) mg/dl Total Bilirubin (0.2-1) mg/dl Direct Bilirubin (0-0.2) mg/dl AST (15-37) U/L ALT (12-78) U/L Alkaline Phosphatase (45-117) U/L Ammonia (11-32) umol/L Troponin I (0-0.045) ng/ml C-Reactive Protein Total Protein (6.4-8.2) gm/dl Albumin (3.4-5.0) gm/dl Globulin (2.5-4.0) gm/dl Albumin/Globulin Ratio (0.9-2) Procalcitonin (0-0.5) ng/ml Specimen Hemolysis Urine Color Urine Appearance (Clear) Urine pH (4.5-7.5) Ur Specific [place] (1.000-1.030) Urine Protein (Negative) Urine Glucose (UA) (Negative) Urine Ketones (Negative) Urine Blood (Negative) Urine Nitrite (Negative) Urine Bilirubin (Negative) Urine Urobilinogen (Negative) Ur Leukocyte Esterase (Negative) Urine WBC (Auto) (0-5) /hpf Urine RBC (Auto) (0-4) /hpf U Hyaline Cast (Auto) (0-5) /lpf U Epithel Cells (Auto) (0-5) /lpf Urine Bacteria (Auto) (Negative) Nasal Screen MRSA (PCR) Negative (Negative) Stool Occult Bld Scrn (Negative) COVID-19 Eval Order SARS-CoV-2 (PCR) (Negative) 01/15/21 01/15/21 01/15/21 Range/Units 15:40 15:40 15:28 WBC (4.8-10.8) K/uL RBC (4.7-6.1) M/uL Hgb (14.0-18.0) g/dL Hct (42-52) % MCV (80-100) fL MCH (25-34) pg MCHC (32-36) g/dL RDW Std Deviation (36.4-46.3) fL RDW Coeff of [place] (11.5-14.5) % Plt Count (130-400) K/uL MPV (7.4-10.4) fL Immature Gran % (Auto) % Neut % (Auto) % Lymph % (Auto) % Haines % (Auto) % Eos % (Auto) % Baso % (Auto) % Neut # (Auto) (1.4-6.5) K/uL Lymph # (Auto) (1.2-3.4) K/uL Haines # (Auto) (0.11-0.59) K/uL Eos # (Auto) (0-0.5) K/uL Baso # (Auto) (0-0.2) K/uL Immature Gran # (Auto) (0.00-0.02) K/uL Absolute Nucleated RBC (0-0) K/uL Nucleated RBC % (auto) % Neutrophils % (Manual) % Lymphocytes % (Manual) % Monocytes % (Manual) % Myelocytes % (Man) % Neutrophils # (Manual) (1.4-6.5) K/uL Total Absolute Neuts (1.4-6.5) K/uL Lymphocytes # (Manual) (1.2-3.4) K/uL Total Abs Lymphocytes (1.2-3.4) K/uL Monocytes # (Manual) (0.11-0.59) K/uL Myelocytes # (Manual) (0-0) K/uL Polychromasia Anisocytosis Pappenheimer Bodies Echinocytes PT (9.0-12.0) Seconds INR (0.9-1.1) APTT (21.0-31.0) Seconds PTT Ratio ABG pH (7.35-7.45) ABG pCO2 (35-46) mmHg ABG pO2 (80-95) mmHg ABG HCO3 (19-24) mmol/L ABG O2 Saturation (90-95) % ABG Base Excess (-9-1.8) mEq/L Jerson Test (Pos) Barometric Pressure mm/Hg Oxygen Given Sodium 139 (136-145) mmol/L Potassium 6.0 H (3.5-5.1) mmol/L Chloride 107 (98-107) mmol/L Carbon Dioxide 21 (21-32) mmol/L Anion Gap 12.0 H (3-11) BUN 58 H (7-18) mg/dl Creatinine 2.87 H (0.6-1.4) mg/dl Est Cr Clr Drug Dosing Not Reportable Est GFR ( Amer) 21.7 ml/min Est GFR (Non-Af Amer) 18.7 ml/min BUN/Creatinine Ratio 20.3 H (10-20) Glucose 147 H (70-99) mg/dl POC Glucose 143 H (70-99) mg/dl Lactate (0.4-2.0) mmol/L Calcium 9.5 (8.5-10.1) mg/dl Ionized Calcium (1.12-1.32) mmol/L Phosphorus (2.5-4.9) mg/dl Magnesium (1.8-2.4) mg/dl Total Bilirubin (0.2-1) mg/dl Direct Bilirubin (0-0.2) mg/dl AST (15-37) U/L ALT (12-78) U/L Alkaline Phosphatase (45-117) U/L Ammonia (11-32) umol/L Troponin I Cancelled 0.202 H* (0-0.045) ng/ml C-Reactive Protein 5.52 H Total Protein (6.4-8.2) gm/dl Albumin (3.4-5.0) gm/dl Globulin (2.5-4.0) gm/dl Albumin/Globulin Ratio (0.9-2) Procalcitonin (0-0.5) ng/ml Specimen Hemolysis Urine Color Urine Appearance (Clear) Urine pH (4.5-7.5) Ur Specific [place] (1.000-1.030) Urine Protein (Negative) Urine Glucose (UA) (Negative) Urine Ketones (Negative) Urine Blood (Negative) Urine Nitrite (Negative) Urine Bilirubin (Negative) Urine Urobilinogen (Negative) Ur Leukocyte Esterase (Negative) Urine WBC (Auto) (0-5) /hpf Urine RBC (Auto) (0-4) /hpf U Hyaline Cast (Auto) (0-5) /lpf U Epithel Cells (Auto) (0-5) /lpf Urine Bacteria (Auto) (Negative) Nasal Screen MRSA (PCR) (Negative) Stool Occult Bld Scrn (Negative) COVID-19 Eval Order SARS-CoV-2 (PCR) (Negative) 01/15/21 01/15/21 01/15/21 Range/Units 15:16 15:15 14:07 WBC (4.8-10.8) K/uL RBC (4.7-6.1) M/uL Hgb (14.0-18.0) g/dL Hct (42-52) % MCV (80-100) fL MCH (25-34) pg MCHC (32-36) g/dL RDW Std Deviation (36.4-46.3) fL RDW Coeff of Osito (11.5-14.5) % Plt Count (130-400) K/uL MPV (7.4-10.4) fL Immature Gran % (Auto) % Neut % (Auto) % Lymph % (Auto) % Haines % (Auto) % Eos % (Auto) % Baso % (Auto) % Neut # (Auto) (1.4-6.5) K/uL Lymph # (Auto) (1.2-3.4) K/uL Haines # (Auto) (0.11-0.59) K/uL Eos # (Auto) (0-0.5) K/uL Baso # (Auto) (0-0.2) K/uL Immature Gran # (Auto) (0.00-0.02) K/uL Absolute Nucleated RBC (0-0) K/uL Nucleated RBC % (auto) % Neutrophils % (Manual) % Lymphocytes % (Manual) % Monocytes % (Manual) % Myelocytes % (Man) % Neutrophils # (Manual) (1.4-6.5) K/uL Total Absolute Neuts (1.4-6.5) K/uL Lymphocytes # (Manual) (1.2-3.4) K/uL Total Abs Lymphocytes (1.2-3.4) K/uL Monocytes # (Manual) (0.11-0.59) K/uL Myelocytes # (Manual) (0-0) K/uL Polychromasia Anisocytosis Pappenheimer Bodies Echinocytes PT (9.0-12.0) Seconds INR (0.9-1.1) APTT (21.0-31.0) Seconds PTT Ratio ABG pH (7.35-7.45) ABG pCO2 (35-46) mmHg ABG pO2 (80-95) mmHg ABG HCO3 (19-24) mmol/L ABG O2 Saturation (90-95) % ABG Base Excess (-9-1.8) mEq/L Jerson Test (Pos) Barometric Pressure mm/Hg Oxygen Given Sodium (136-145) mmol/L Potassium (3.5-5.1) mmol/L Chloride (98-107) mmol/L Carbon Dioxide (21-32) mmol/L Anion Gap (3-11) BUN (7-18) mg/dl Creatinine (0.6-1.4) mg/dl Est Cr Clr Drug Dosing Est GFR ( Amer) ml/min Est GFR (Non-Af Amer) ml/min BUN/Creatinine Ratio (10-20) Glucose (70-99) mg/dl POC Glucose 52 L* 56 L* (70-99) mg/dl Lactate (0.4-2.0) mmol/L Calcium (8.5-10.1) mg/dl Ionized Calcium (1.12-1.32) mmol/L Phosphorus (2.5-4.9) mg/dl Magnesium (1.8-2.4) mg/dl Total Bilirubin (0.2-1) mg/dl Direct Bilirubin (0-0.2) mg/dl AST (15-37) U/L ALT (12-78) U/L Alkaline Phosphatase (45-117) U/L Ammonia 53.3 H (11-32) umol/L Troponin I (0-0.045) ng/ml C-Reactive Protein Total Protein (6.4-8.2) gm/dl Albumin (3.4-5.0) gm/dl Globulin (2.5-4.0) gm/dl Albumin/Globulin Ratio (0.9-2) Procalcitonin (0-0.5) ng/ml Specimen Hemolysis Urine Color Urine Appearance (Clear) Urine pH (4.5-7.5) Ur Specific [place] (1.000-1.030) Urine Protein (Negative) Urine Glucose (UA) (Negative) Urine Ketones (Negative) Urine Blood (Negative) Urine Nitrite (Negative) Urine Bilirubin (Negative) Urine Urobilinogen (Negative) Ur Leukocyte Esterase (Negative) Urine WBC (Auto) (0-5) /hpf Urine RBC (Auto) (0-4) /hpf U Hyaline Cast (Auto) (0-5) /lpf U Epithel Cells (Auto) (0-5) /lpf Urine Bacteria (Auto) (Negative) Nasal Screen MRSA (PCR) (Negative) Stool Occult Bld Scrn (Negative) COVID-19 Eval Order SARS-CoV-2 (PCR) (Negative) 01/15/21 01/15/21 01/15/21 Range/Units 14:07 13:52 12:36 WBC (4.8-10.8) K/uL RBC (4.7-6.1) M/uL Hgb (14.0-18.0) g/dL Hct (42-52) % MCV (80-100) fL MCH (25-34) pg MCHC (32-36) g/dL RDW Std Deviation (36.4-46.3) fL RDW Coeff of Osito (11.5-14.5) % Plt Count (130-400) K/uL MPV (7.4-10.4) fL Immature Gran % (Auto) % Neut % (Auto) % Lymph % (Auto) % Haines % (Auto) % Eos % (Auto) % Baso % (Auto) % Neut # (Auto) (1.4-6.5) K/uL Lymph # (Auto) (1.2-3.4) K/uL Haines # (Auto) (0.11-0.59) K/uL Eos # (Auto) (0-0.5) K/uL Baso # (Auto) (0-0.2) K/uL Immature Gran # (Auto) (0.00-0.02) K/uL Absolute Nucleated RBC (0-0) K/uL Nucleated RBC % (auto) % Neutrophils % (Manual) % Lymphocytes % (Manual) % Monocytes % (Manual) % Myelocytes % (Man) % Neutrophils # (Manual) (1.4-6.5) K/uL Total Absolute Neuts (1.4-6.5) K/uL Lymphocytes # (Manual) (1.2-3.4) K/uL Total Abs Lymphocytes (1.2-3.4) K/uL Monocytes # (Manual) (0.11-0.59) K/uL Myelocytes # (Manual) (0-0) K/uL Polychromasia Anisocytosis Pappenheimer Bodies Echinocytes PT (9.0-12.0) Seconds INR (0.9-1.1) APTT (21.0-31.0) Seconds PTT Ratio ABG pH (7.35-7.45) ABG pCO2 (35-46) mmHg ABG pO2 (80-95) mmHg ABG HCO3 (19-24) mmol/L ABG O2 Saturation (90-95) % ABG Base Excess (-9-1.8) mEq/L Jerson Test (Pos) Barometric Pressure mm/Hg Oxygen Given Sodium Cancelled (136-145) mmol/L Potassium Cancelled (3.5-5.1) mmol/L Chloride Cancelled (98-107) mmol/L Carbon Dioxide Cancelled (21-32) mmol/L Anion Gap Cancelled (3-11) BUN Cancelled (7-18) mg/dl Creatinine Cancelled (0.6-1.4) mg/dl Est Cr Clr Drug Dosing Cancelled Est GFR ( Amer) Cancelled ml/min Est GFR (Non-Af Amer) Cancelled ml/min BUN/Creatinine Ratio Cancelled (10-20) Glucose Cancelled (70-99) mg/dl POC Glucose 73 (70-99) mg/dl Lactate 6.5 H* (0.4-2.0) mmol/L Calcium Cancelled (8.5-10.1) mg/dl Ionized Calcium (1.12-1.32) mmol/L Phosphorus (2.5-4.9) mg/dl Magnesium (1.8-2.4) mg/dl Total Bilirubin (0.2-1) mg/dl Direct Bilirubin (0-0.2) mg/dl AST (15-37) U/L ALT (12-78) U/L Alkaline Phosphatase (45-117) U/L Ammonia (11-32) umol/L Troponin I (0-0.045) ng/ml C-Reactive Protein Cancelled Total Protein (6.4-8.2) gm/dl Albumin (3.4-5.0) gm/dl Globulin (2.5-4.0) gm/dl Albumin/Globulin Ratio (0.9-2) Procalcitonin (0-0.5) ng/ml Specimen Hemolysis Urine Color Urine Appearance (Clear) Urine pH (4.5-7.5) Ur Specific [place] (1.000-1.030) Urine Protein (Negative) Urine Glucose (UA) (Negative) Urine Ketones (Negative) Urine Blood (Negative) Urine Nitrite (Negative) Urine Bilirubin (Negative) Urine Urobilinogen (Negative) Ur Leukocyte Esterase (Negative) Urine WBC (Auto) (0-5) /hpf Urine RBC (Auto) (0-4) /hpf U Hyaline Cast (Auto) (0-5) /lpf U Epithel Cells (Auto) (0-5) /lpf Urine Bacteria (Auto) (Negative) Nasal Screen MRSA (PCR) (Negative) Stool Occult Bld Scrn (Negative) COVID-19 Eval Order SARS-CoV-2 (PCR) (Negative) 01/15/21 01/15/21 01/15/21 Range/Units 12:06 11:59 11:59 WBC (4.8-10.8) K/uL RBC (4.7-6.1) M/uL Hgb (14.0-18.0) g/dL Hct (42-52) % MCV (80-100) fL MCH (25-34) pg MCHC (32-36) g/dL RDW Std Deviation (36.4-46.3) fL RDW Coeff of Osito (11.5-14.5) % Plt Count (130-400) K/uL MPV (7.4-10.4) fL Immature Gran % (Auto) % Neut % (Auto) % Lymph % (Auto) % Haines % (Auto) % Eos % (Auto) % Baso % (Auto) % Neut # (Auto) (1.4-6.5) K/uL Lymph # (Auto) (1.2-3.4) K/uL Haines # (Auto) (0.11-0.59) K/uL Eos # (Auto) (0-0.5) K/uL Baso # (Auto) (0-0.2) K/uL Immature Gran # (Auto) (0.00-0.02) K/uL Absolute Nucleated RBC (0-0) K/uL Nucleated RBC % (auto) % Neutrophils % (Manual) % Lymphocytes % (Manual) % Monocytes % (Manual) % Myelocytes % (Man) % Neutrophils # (Manual) (1.4-6.5) K/uL Total Absolute Neuts (1.4-6.5) K/uL Lymphocytes # (Manual) (1.2-3.4) K/uL Total Abs Lymphocytes (1.2-3.4) K/uL Monocytes # (Manual) (0.11-0.59) K/uL Myelocytes # (Manual) (0-0) K/uL Polychromasia Anisocytosis Pappenheimer Bodies Echinocytes PT (9.0-12.0) Seconds INR (0.9-1.1) APTT (21.0-31.0) Seconds PTT Ratio ABG pH (7.35-7.45) ABG pCO2 (35-46) mmHg ABG pO2 (80-95) mmHg ABG HCO3 (19-24) mmol/L ABG O2 Saturation (90-95) % ABG Base Excess (-9-1.8) mEq/L Jerson Test (Pos) Barometric Pressure mm/Hg Oxygen Given Sodium (136-145) mmol/L Potassium (3.5-5.1) mmol/L Chloride (98-107) mmol/L Carbon Dioxide (21-32) mmol/L Anion Gap (3-11) BUN (7-18) mg/dl Creatinine (0.6-1.4) mg/dl Est Cr Clr Drug Dosing Est GFR ( Amer) ml/min Est GFR (Non-Af Amer) ml/min BUN/Creatinine Ratio (10-20) Glucose (70-99) mg/dl POC Glucose (70-99) mg/dl Lactate (0.4-2.0) mmol/L Calcium (8.5-10.1) mg/dl Ionized Calcium (1.12-1.32) mmol/L Phosphorus (2.5-4.9) mg/dl Magnesium (1.8-2.4) mg/dl Total Bilirubin (0.2-1) mg/dl Direct Bilirubin (0-0.2) mg/dl AST (15-37) U/L ALT (12-78) U/L Alkaline Phosphatase (45-117) U/L Ammonia (11-32) umol/L Troponin I (0-0.045) ng/ml C-Reactive Protein Total Protein (6.4-8.2) gm/dl Albumin (3.4-5.0) gm/dl Globulin (2.5-4.0) gm/dl Albumin/Globulin Ratio (0.9-2) Procalcitonin (0-0.5) ng/ml Specimen Hemolysis Urine Color Dark Yellow Urine Appearance Clear (Clear) Urine pH 5.5 (4.5-7.5) Ur Specific [place] 1.016 (1.000-1.030) Urine Protein 1+ H (Negative) Urine Glucose (UA) Negative (Negative) Urine Ketones Trace H (Negative) Urine Blood 2+ H (Negative) Urine Nitrite Positive A (Negative) Urine Bilirubin 1+ H (Negative) Urine Urobilinogen Negative (Negative) Ur Leukocyte Esterase Trace H (Negative) Urine WBC (Auto) 5-10 H (0-5) /hpf Urine RBC (Auto) >30 H (0-4) /hpf U Hyaline Cast (Auto) >30 H (0-5) /lpf U Epithel Cells (Auto) 5-10 H (0-5) /lpf Urine Bacteria (Auto) 1+ H (Negative) Nasal Screen MRSA (PCR) (Negative) Stool Occult Bld Scrn (Negative) COVID-19 Eval Order Covid19 at [facility] SARS-CoV-2 (PCR) NEGATIVE (Negative) 01/15/21 01/15/21 01/15/21 Range/Units 10:55 10:49 10:49 WBC (4.8-10.8) K/uL RBC (4.7-6.1) M/uL Hgb (14.0-18.0) g/dL Hct (42-52) % MCV (80-100) fL MCH (25-34) pg MCHC (32-36) g/dL RDW Std Deviation (36.4-46.3) fL RDW Coeff of Osito (11.5-14.5) % Plt Count (130-400) K/uL MPV (7.4-10.4) fL Immature Gran % (Auto) % Neut % (Auto) % Lymph % (Auto) % Haines % (Auto) % Eos % (Auto) % Baso % (Auto) % Neut # (Auto) (1.4-6.5) K/uL Lymph # (Auto) (1.2-3.4) K/uL Haines # (Auto) (0.11-0.59) K/uL Eos # (Auto) (0-0.5) K/uL Baso # (Auto) (0-0.2) K/uL Immature Gran # (Auto) (0.00-0.02) K/uL Absolute Nucleated RBC (0-0) K/uL Nucleated RBC % (auto) % Neutrophils % (Manual) % Lymphocytes % (Manual) % Monocytes % (Manual) % Myelocytes % (Man) % Neutrophils # (Manual) (1.4-6.5) K/uL Total Absolute Neuts (1.4-6.5) K/uL Lymphocytes # (Manual) (1.2-3.4) K/uL Total Abs Lymphocytes (1.2-3.4) K/uL Monocytes # (Manual) (0.11-0.59) K/uL Myelocytes # (Manual) (0-0) K/uL Polychromasia Anisocytosis Pappenheimer Bodies Echinocytes PT (9.0-12.0) Seconds INR (0.9-1.1) APTT (21.0-31.0) Seconds PTT Ratio ABG pH 7.54 H* (7.35-7.45) ABG pCO2 24 L (35-46) mmHg ABG pO2 57 L (80-95) mmHg ABG HCO3 20 (19-24) mmol/L ABG O2 Saturation 90.0 (90-95) % ABG Base Excess -1.1 (-9-1.8) mEq/L Jerson Test Pos (Pos) Barometric Pressure 732.3 mm/Hg Oxygen Given RA Sodium (136-145) mmol/L Potassium (3.5-5.1) mmol/L Chloride (98-107) mmol/L Carbon Dioxide (21-32) mmol/L Anion Gap (3-11) BUN (7-18) mg/dl Creatinine (0.6-1.4) mg/dl Est Cr Clr Drug Dosing Est GFR ( Amer) ml/min Est GFR (Non-Af Amer) ml/min BUN/Creatinine Ratio (10-20) Glucose (70-99) mg/dl POC Glucose (70-99) mg/dl Lactate 6.6 H* (0.4-2.0) mmol/L Calcium (8.5-10.1) mg/dl Ionized Calcium (1.12-1.32) mmol/L Phosphorus (2.5-4.9) mg/dl Magnesium (1.8-2.4) mg/dl Total Bilirubin (0.2-1) mg/dl Direct Bilirubin (0-0.2) mg/dl AST (15-37) U/L ALT (12-78) U/L Alkaline Phosphatase (45-117) U/L Ammonia (11-32) umol/L Troponin I (0-0.045) ng/ml C-Reactive Protein Total Protein (6.4-8.2) gm/dl Albumin (3.4-5.0) gm/dl Globulin (2.5-4.0) gm/dl Albumin/Globulin Ratio (0.9-2) Procalcitonin 0.31 (0-0.5) ng/ml Specimen Hemolysis Urine Color Urine Appearance (Clear) Urine pH (4.5-7.5) Ur Specific [place] (1.000-1.030) Urine Protein (Negative) Urine Glucose (UA) (Negative) Urine Ketones (Negative) Urine Blood (Negative) Urine Nitrite (Negative) Urine Bilirubin (Negative) Urine Urobilinogen (Negative) Ur Leukocyte Esterase (Negative) Urine WBC (Auto) (0-5) /hpf Urine RBC (Auto) (0-4) /hpf U Hyaline Cast (Auto) (0-5) /lpf U Epithel Cells (Auto) (0-5) /lpf Urine Bacteria (Auto) (Negative) Nasal Screen MRSA (PCR) (Negative) Stool Occult Bld Scrn (Negative) COVID-19 Eval Order SARS-CoV-2 (PCR) (Negative) 01/15/21 01/15/21 01/15/21 Range/Units 10:49 10:49 10:49 WBC 10.87 H (4.8-10.8) K/uL RBC 3.21 L (4.7-6.1) M/uL Hgb 11.8 L (14.0-18.0) g/dL Hct 34.3 L (42-52) % MCV 106.9 H (80-100) fL MCH 36.8 H (25-34) pg MCHC 34.4 (32-36) g/dL RDW Std Deviation 71.7 H (36.4-46.3) fL RDW Coeff of [place] 21.3 H (11.5-14.5) % Plt Count 179 (130-400) K/uL MPV 12.0 H (7.4-10.4) fL Immature Gran % (Auto) 2.0 % Neut % (Auto) 74.7 % Lymph % (Auto) 10.4 % Haines % (Auto) 12.3 % Eos % (Auto) 0.3 % Baso % (Auto) 0.3 % Neut # (Auto) 8.12 H (1.4-6.5) K/uL Lymph # (Auto) 1.13 L (1.2-3.4) K/uL Haines # (Auto) 1.34 H (0.11-0.59) K/uL Eos # (Auto) 0.03 (0-0.5) K/uL Baso # (Auto) 0.03 (0-0.2) K/uL Immature Gran # (Auto) 0.22 H (0.00-0.02) K/uL Absolute Nucleated RBC 0.77 H (0-0) K/uL Nucleated RBC % (auto) 7.1 % Neutrophils % (Manual) 81.7 % Lymphocytes % (Manual) 7.8 % Monocytes % (Manual) 9.6 % Myelocytes % (Man) 0.9 % Neutrophils # (Manual) 8.88 H (1.4-6.5) K/uL Total Absolute Neuts 8.88 H (1.4-6.5) K/uL Lymphocytes # (Manual) 0.85 L (1.2-3.4) K/uL Total Abs Lymphocytes 0.85 L (1.2-3.4) K/uL Monocytes # (Manual) 1.04 H (0.11-0.59) K/uL Myelocytes # (Manual) 0.10 H (0-0) K/uL Polychromasia 1+ Anisocytosis Present Pappenheimer Bodies 1+ Echinocytes 1+ PT 41.0 H (9.0-12.0) Seconds INR 4.6 H (0.9-1.1) APTT 52.2 H* (21.0-31.0) Seconds PTT Ratio 2.0 ABG pH (7.35-7.45) ABG pCO2 (35-46) mmHg ABG pO2 (80-95) mmHg ABG HCO3 (19-24) mmol/L ABG O2 Saturation (90-95) % ABG Base Excess (-9-1.8) mEq/L Jerson Test (Pos) Barometric Pressure mm/Hg Oxygen Given Sodium 137 (136-145) mmol/L Potassium 6.3 H* (3.5-5.1) mmol/L Chloride 105 (98-107) mmol/L Carbon Dioxide 19 L (21-32) mmol/L Anion Gap 13.0 H (3-11) BUN 58 H (7-18) mg/dl Creatinine 2.90 H (0.6-1.4) mg/dl Est Cr Clr Drug Dosing Not Reportable Est GFR ( Amer) 21.4 ml/min Est GFR (Non-Af Amer) 18.5 ml/min BUN/Creatinine Ratio 19.9 (10-20) Glucose 124 H (70-99) mg/dl POC Glucose (70-99) mg/dl Lactate (0.4-2.0) mmol/L Calcium 9.8 (8.5-10.1) mg/dl Ionized Calcium (1.12-1.32) mmol/L Phosphorus (2.5-4.9) mg/dl Magnesium 1.9 (1.8-2.4) mg/dl Total Bilirubin 6.7 H (0.2-1) mg/dl Direct Bilirubin (0-0.2) mg/dl AST 1326 H (15-37) U/L ALT 770 H (12-78) U/L Alkaline Phosphatase 148 H (45-117) U/L Ammonia (11-32) umol/L Troponin I 0.219 H* (0-0.045) ng/ml C-Reactive Protein Total Protein 7.0 (6.4-8.2) gm/dl Albumin 1.9 L (3.4-5.0) gm/dl Globulin 5.1 H (2.5-4.0) gm/dl Albumin/Globulin Ratio 0.4 L (0.9-2) Procalcitonin (0-0.5) ng/ml Specimen Hemolysis Urine Color Urine Appearance (Clear) Urine pH (4.5-7.5) Ur Specific [place] (1.000-1.030) Urine Protein (Negative) Urine Glucose (UA) (Negative) Urine Ketones (Negative) Urine Blood (Negative) Urine Nitrite (Negative) Urine Bilirubin (Negative) Urine Urobilinogen (Negative) Ur Leukocyte Esterase (Negative) Urine WBC (Auto) (0-5) /hpf Urine RBC (Auto) (0-4) /hpf U Hyaline Cast (Auto) (0-5) /lpf U Epithel Cells (Auto) (0-5) /lpf Urine Bacteria (Auto) (Negative) Nasal Screen MRSA (PCR) (Negative) Stool Occult Bld Scrn (Negative) COVID-19 Eval Order SARS-CoV-2 (PCR) (Negative) 01/15/21 Range/Units 09:49 WBC (4.8-10.8) K/uL RBC (4.7-6.1) M/uL Hgb (14.0-18.0) g/dL Hct (42-52) % MCV (80-100) fL MCH (25-34) pg MCHC (32-36) g/dL RDW Std Deviation (36.4-46.3) fL RDW Coeff of [place] (11.5-14.5) % Plt Count (130-400) K/uL MPV (7.4-10.4) fL Immature Gran % (Auto) % Neut % (Auto) % Lymph % (Auto) % Haines % (Auto) % Eos % (Auto) % Baso % (Auto) % Neut # (Auto) (1.4-6.5) K/uL Lymph # (Auto) (1.2-3.4) K/uL Haines # (Auto) (0.11-0.59) K/uL Eos # (Auto) (0-0.5) K/uL Baso # (Auto) (0-0.2) K/uL Immature Gran # (Auto) (0.00-0.02) K/uL Absolute Nucleated RBC (0-0) K/uL Nucleated RBC % (auto) % Neutrophils % (Manual) % Lymphocytes % (Manual) % Monocytes % (Manual) % Myelocytes % (Man) % Neutrophils # (Manual) (1.4-6.5) K/uL Total Absolute Neuts (1.4-6.5) K/uL Lymphocytes # (Manual) (1.2-3.4) K/uL Total Abs Lymphocytes (1.2-3.4) K/uL Monocytes # (Manual) (0.11-0.59) K/uL Myelocytes # (Manual) (0-0) K/uL Polychromasia Anisocytosis Pappenheimer Bodies Echinocytes PT (9.0-12.0) Seconds INR (0.9-1.1) APTT (21.0-31.0) Seconds PTT Ratio ABG pH (7.35-7.45) ABG pCO2 (35-46) mmHg ABG pO2 (80-95) mmHg ABG HCO3 (19-24) mmol/L ABG O2 Saturation (90-95) % ABG Base Excess (-9-1.8) mEq/L Jerson Test (Pos) Barometric Pressure mm/Hg Oxygen Given Sodium (136-145) mmol/L Potassium (3.5-5.1) mmol/L Chloride (98-107) mmol/L Carbon Dioxide (21-32) mmol/L Anion Gap (3-11) BUN (7-18) mg/dl Creatinine (0.6-1.4) mg/dl Est Cr Clr Drug Dosing Est GFR ( Amer) ml/min Est GFR (Non-Af Amer) ml/min BUN/Creatinine Ratio (10-20) Glucose (70-99) mg/dl POC Glucose 156 H (70-99) mg/dl Lactate (0.4-2.0) mmol/L Calcium (8.5-10.1) mg/dl Ionized Calcium (1.12-1.32) mmol/L Phosphorus (2.5-4.9) mg/dl Magnesium (1.8-2.4) mg/dl Total Bilirubin (0.2-1) mg/dl Direct Bilirubin (0-0.2) mg/dl AST (15-37) U/L ALT (12-78) U/L Alkaline Phosphatase (45-117) U/L Ammonia (11-32) umol/L Troponin I (0-0.045) ng/ml C-Reactive Protein Total Protein (6.4-8.2) gm/dl Albumin (3.4-5.0) gm/dl Globulin (2.5-4.0) gm/dl Albumin/Globulin Ratio (0.9-2) Procalcitonin (0-0.5) ng/ml Specimen Hemolysis Urine Color Urine Appearance (Clear) Urine pH (4.5-7.5) Ur Specific [place] (1.000-1.030) Urine Protein (Negative) Urine Glucose (UA) (Negative) Urine Ketones (Negative) Urine Blood (Negative) Urine Nitrite (Negative) Urine Bilirubin (Negative) Urine Urobilinogen (Negative) Ur Leukocyte Esterase (Negative) Urine WBC (Auto) (0-5) /hpf Urine RBC (Auto) (0-4) /hpf U Hyaline Cast (Auto) (0-5) /lpf U Epithel Cells (Auto) (0-5) /lpf Urine Bacteria (Auto) (Negative) Nasal Screen MRSA (PCR) (Negative) Stool Occult Bld Scrn (Negative) COVID-19 Eval Order SARS-CoV-2 (PCR) (Negative) Resident Activity Tracking Resident Involvement: Resident Care Provided Care Provided: Adult Hospital Medicine
--- NOTE | 2021-01-16 07:35 | Billing Data ---
Date of Service January 16, 2021 Coding Level of Care Code Critical Care 06 09- mins
[2021-01-16] MEDS ORDERED: STAT IV Infusion **Titration per Protocol STA (07:38)
[2021-01-16] MEDS: NOREPINEPHRINE/D5W 8 MG/508 ML BAG IV SCH (08:00)
[2021-01-16] MEDS: FERROUS SULFATE 325 MG TAB PO SCH ×2 (08:47→20:33)
[2021-01-16] MEDS: FLUoxetine HCL 10 MG CAP PO SCH (08:47)
[2021-01-16] MEDS: DOCUSATE SODIUM 100 MG CAP PO SCH ×2 (08:47→20:33)
[2021-01-16] MEDS: MIRTAZAPINE TAB 15 MG TAB PO SCH (08:48)
[2021-01-16] MEDS: PANTOprazole 40 MG TAB PO SCH (08:48)
--- NOTE | 2021-01-16 15:12 | Cardiology Consultation ---
Date of Consultation January 16, 2021 Assessment & Plan (1) Right heart failure, NYHA class 4: (2) Acute on chronic diastolic (congestive) heart failure: (3) Moderate mitral regurgitation: (4) Elevated troponin: (5) Atrial flutter with rapid ventricular response: (6) At risk for change in mental status: Complex patient with multiple comorbidities and a broad range of metabolic abnormalities who was admitted yesterday with obtundation, respiratory distress, worsening edema, and hypoglycemia. He seems to have right heart failure disproportionate to left heart failure (based on fairly unremarkable chest x-ray) with associated anasarca and hepatic congestion. He had required escalating doses of diuretics as an outpatient and now appears markedly volume overloaded. Mainstay of therapy is diuresis as tolerated, fortunately his creatinine remained stable despite brisk output (4 L). Given his renal dysfunction, would not hesitate to use higher doses of diuretic (2 or 3 mg Bumex) if he does not maintain ongoing brisk diuresis with output greater than input. There is likely a limit to the efficacy of any diuresis given his severe hypoalbuminemia and significant underlying renal dysfunction. In regards to pressors/inotropes, he no longer appears to be in respiratory distress, he has good urine output, and his extremities are warm despite mild hypotension overnight. In recent months, his blood pressure has historically been low normal or mildly hypotensive at baseline. Therefore, would attempt to wean or use minimal vasopressors in the absence of evidence for hypoperfusion. Would consider dobutamine for inotropic benefit, however he is diuresing well and this could exacerbate his tendency to tachycardia with persistent atrial flutter. Will check echocardiogram to further assess right and left heart systolic function. Given his multiple comorbidities/metabolic abnormalities, his prognosis is quite poor. I have known him personally and professionally for many years and will maintain a dialogue with the family regarding their wishes as to aggressiveness of care. Since he is improving without the need for extraordinary measures, reasonable to continue supportive care at this time. However, as I discussed with family members, should he deteriorate to the point where he requires cardiopulmonary resuscitation, such efforts would likely be futile and his family therefore agrees with DNR status. Will continue to follow. Thank you for allowing me to participate in Mr. Rhodes's care. History of Present Illness Reason for Consultation: CHF Requesting Physician: Alla Miles DO Attending Physician: Deo Enamorado MD History of Present Illness 89-year-old man well known to me with persistent atrial flutter (metoprolol/apixaban), chronic HFpEF, chronic kidney disease, MSSA bacteremia and generalized failure to thrive recently with episodic confusion, who was admitted yesterday from [facility] with obtundation, progressive edema, respiratory distress, and hypoglycemia. At the time of admission, he had multiple metabolic abnormalities including metabolic acidosis with respiratory alkalosis, elevated lactate, hyperkalemia, elevated INR, elevated transaminases, hypoxia, and marked hypoalbuminemia. His initial ECG showed probable atrial flutter (given his history) with rapid ventricular response (137 bpm), his ECG today showed atrial flutter at 90 bpm, his troponin was mildly elevated but flat (0.23). He appeared markedly volume overloaded on admission at 208 pounds (up from 163 pounds 3 weeks ago). He was given IV Bumex with good diuresis overnight (nearly 4 L) without significant change in his creatinine. His initial hemodynamics were favorable, he became mildly hypotensive overnight and was placed on low- dose norepinephrine. At the time of my evaluation last evening, he was obtunded but did respond vaguely to verbal stimuli. This morning, he was able to carry on a short conversation and answer simple question. He noted that he had some ankle discomfort (a chronic complaint) but otherwise felt well. He denied any chest pain, dyspnea, subjective palpitations, or lightheadedness. Allergies Allergy/AdvReac Type Severity Reaction Status Date / Time No Known Allergies Allergy Unknown Verified 01/03/21 14:21 Home Medications Medication Instructions Recorded Confirmed Type allopurinol 300 mg tablet 300 mg PO QAM tab 01/21/19 01/15/21 History apixaban 5 mg tablet (Eliquis) 5 mg PO BID #60 tab 07/26/20 01/15/21 Rx fluoxetine 10 mg capsule (Prozac) 10 mg PO QAM 10/15/20 01/15/21 History docusate sodium 100 mg capsule 100 mg PO BID 11/15/20 01/15/21 History (Colace) mirtazapine 15 mg tablet (Remeron) 15 mg PO QAM 11/15/20 01/15/21 History potassium chloride 20 mEq 20 meq PO TID 12/24/20 01/15/21 History tablet,extended release(part/cryst) (Klor-Con M) ferrous sulfate 325 mg (65 mg 325 mg PO BID 01/15/21 01/15/21 History iron) tablet (Iron (ferrous sulfate)) furosemide 40 mg tablet (Lasix) 40 mg PO QAM 01/15/21 01/15/21 History melatonin 3 mg tablet (Melatin) 3 mg PO HS 01/15/21 01/15/21 History metoprolol succinate 25 mg 12.5 mg PO BID 01/15/21 01/15/21 History tablet,extended release 24 hr (Toprol XL) nitrofurantoin macrocrystal 50 mg 50 mg PO BID 01/15/21 01/15/21 History capsule (Macrodantin) pantoprazole 40 mg tablet,delayed 40 mg PO QAM 01/15/21 01/15/21 History release (Protonix) Patient History Medical History (Updated 01/16/21 @ 15:24 by Melvin Lofton MD) Abdominal ascites Abnormal cystoscopy Acalculous cholecystitis Actinic keratosis Acute CHF (congestive heart failure) Acute respiratory failure with hypoxia Atrial fibrillation with rapid ventricular response (03/2020) Bacteremia Bilateral edema of lower extremity Bilateral nephrolithiasis (2005) Bilateral pleural effusion Bladder cancer (2016) Elevated troponin Per cardiology note 08/05/20: (2) Elevated troponin: -mild elevation likely a supply demand mismatch and not coronary ischemia. 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 -did have elevated heart rate and low blood pressure while in the emergency room. GI bleed Gout Hearing loss Hematuria (2018) History of basal cell carcinoma (2016) Hypercholesteremia Leg edema Male erectile disorder of organic origin Valvular heart disease Vitamin D deficiency Surgical History H/O pyloroplasty H/O shoulder surgery Hx laparoscopic cholecystectomy (08/06/20) Laparoscopic Cholecystectomy with Cholangiogram, Lysis of Adhesions Dr. Givens 08/06/2020 S/P bladder tumor excision with fulguration (2016) S/P knee surgery Status post ORIF of fracture of ankle Family History Grandfather Cancer Social History Smoking Status: Unknown if ever smoked Age Quit Using Tobacco: 32; Second Hand Exposure: No; Preferred Language: Arabic Communication Ability: Unable Wireless Store Manager Required: No Beliefs That Will Affect Care: None marital status: Current Living Situation: Spouse Current Living Situation Comment: lives w/ current occupational status: retired How many Children do You have: 2 Feels Safe at Home: Yes Assistive Devices: Oxygen - Continuous Physical Exam Physical Exam: Chronically ill-appearing but not acutely distressed, able to answer questions, extremities warm. As noted, weight markedly increased over recent baseline. Systolic blood pressure approximately 100 mmHg on low-dose norepinephrine. Pulse 90 bpm and regular. Skin: no ecchymoses or generalized lesions. HEENT: unremarkable. Neck: Jugular venous pulse markedly elevated, no carotid bruits. Lungs: Moderately decreased breath sounds with faint expiratory wheeze but good airflow. No accessory muscle use. Cardiac: fairly regular rhythm, 2/6 apical holosystolic murmur, no diastolic murmur or gallop. Abdomen: benign. Extremities: 3+ lower extremity edema. Neurologic: Answers simple questions, grossly nonfocal. Results & Data ([facility]) Laboratory Results Multiple abnormal labs as noted in HPI. proBNP was 6809 (4582 3 weeks ago). Diagnostic Findings ECG as noted in HPI. Chest x-ray on admission showed no significant pulmonary vascular congestion but did show atelectasis/infiltrate in both lower lungs. PG Care Time/CCT Total # of Minutes Spent Total Time Spent with Patient: Total time spent is greater than 50% in coordination of care (as documented) at patient's floor/unit and/or counseling patient: Coding Level of Care Code 81697 Initial Inpt Care Lvl 3 Diagnoses Acute on chronic diastolic (congestive) heart failure I50.33 Moderate mitral regurgitation I34.0 Right heart failure, NYHA class 4 I50.810 Elevated troponin R77.8 At risk for change in mental status Z91.89 Atrial flutter with rapid ventricular response I48.92
[2021-01-16] MEDS ORDERED: PNEUMOCOCCAL Polysaccharide Vaccine 25mcg/0.5mL vial/Syr IM ONE (17:45)
--- NOTE | 2021-01-16 18:48 | XCELERA ---
[id number]
--- NOTE | 2021-01-16 19:00 | Electrocardiogram Report ---
Test Reason : Blood Pressure : / mmHG Vent. Rate : 090 BPM Atrial Rate : 090 BPM P-R Int : 192 ms QRS Dur : 078 ms QT Int : 288 ms P-R-T Axes : 049 -37 026 degrees QTc Int : 352 ms Normal sinus rhythm Left axis deviation Low voltage QRS Inferior infarct (cited on or before 27-NOV-2020) Abnormal ECG When compared with ECG of 15-JAN-2021 09:49, Vent. rate has decreased BY 47 BPM Minimal criteria for Anterior infarct are no longer Present Confirmed by Jordan Licona ([id number]) on 01/16/2021 7:00:21 PM Referred By: [facility] Confirmed By:Ramone Licona
[2021-01-16] MEDS: MELATONIN 3 MG TAB PO SCH (20:34)
[2021-01-17] MEDS: NAFCILLIN SODIUM 2,000 MG in DEXTROSE 5% 100 ML IV SCH ×4 (03:43→15:28)
[2021-01-17 05:11] LABS: Basophils # (auto) 0.03 K/uL (0-0.2); Basophils % (auto) 0.5 %; Eosinophils # (auto) 0.13 K/uL (0-0.5); Eosinophils % (auto) 2.2 %; Hematocrit (blood only) 36.4 % (42-52); Hemoglobin 12.7 g/dL (14.0-18.0); Immature Granulocytes % (auto) 1.7 %; Lymphocytes # (auto) 0.84 K/uL (1.2-3.4); Lymphocytes % (auto) 14.4 %; Mean Corpuscular Hemoglobin 35.8 pg (25-34); Mean Corpuscular Hgb Conc 34.9 g/dL (32-36); Mean Corpuscular Volume 102.5 fL (80-100); Mean Platelet Volume 11.1 fL (7.4-10.4); Monocytes # (auto) 0.45 K/uL (0.11-0.59); Monocytes % (auto) 7.7 %; Neutrophils # (auto) 4.28 K/uL (1.4-6.5); Neutrophils % (auto) 73.5 %; Nucleated RBC # (auto) 0.23 K/uL (0-0); Nucleated RBC % (auto) 3.9 %; Platelet Count 160 K/uL (130-400); RDW Coefficient of Variation 22.4 % (11.5-14.5); RDW Standard Deviation 66.7 fL (36.4-46.3); Red Blood Count 3.55 M/uL (4.7-6.1); White Blood Count 5.83 K/uL (4.8-10.8)
[2021-01-17 05:21] LABS: INR 2.2 (0.9-1.1); Prothrombin Time 20.7 Seconds (9.0-12.0)
[2021-01-17 05:31] LABS: Albumin Level 1.3 gm/dl (3.4-5.0); BUN Creatinine Ratio 23.4 (10-20); Calcium 8.1 mg/dl (8.5-10.1); Creatinine Clr Calc Pharmacy 24.2 ml/min; Est GFR (Non-African American) 24.2 ml/min; Magnesium 1.7 mg/dl (1.8-2.4); Potassium 3.4 mmol/L (3.5-5.1)
[2021-01-17 05:38] LABS: Bilirubin,Total 7.6 mg/dl (0.2-1); Phosphorus 3.9 mg/dl (2.5-4.9); Total Protein 5.1 gm/dl (6.4-8.2); Troponin I 0.23 ng/ml (0-0.045)
[2021-01-17] MEDS: MAGNESIUM SULFATE / D5W 1 GM/100 ML BAG IV SCH ×2 (05:59→07:50)
[2021-01-17 06:00] LABS: Echinocytes 2+; Pappenheimer Bodies 1+; Polychromasia 1+
[2021-01-17] MEDS: POTASSIUM CHLORIDE / WTR 10 MEQ/100 ML PLCT IV SCH ×4 (06:00→09:01)
--- NOTE | 2021-01-17 06:52 | Critical Care Progress Note ---
Date of Service January 17, 2021 Assessment & Plan (1) Admitted to intensive care unit: Plan: Reason critically ill: 89 yo male with significant PMHx including HFpEF, Afib (on eliqius), CKD III, protein calorie malnutrition, chronic hypoalbuminemia, MSSA bacteremia, decline in physical and mental capabilities admitted with acute on chronic diastolic CHF with hepatic congestion requiring diuresis and close hemodynamic monitoring. NEURO: Metabolic encephalopathy - Mentation waxes and wanes - Continue to monitor CARDIAC/VASCULAR: Decompensated diastolic CHF - BNP elevated at 6809 on admission - Echo 11/20/20: flattened septum consistent w/ RV pressure/volume overload. LVEF borderline reduced at 45-50%. Mild to moderate mitral regurg. IVC mildly dilated. - Repeat echo 01/16/21: LVEF borderline reduced at 45-50%. Right ventricular systolic function mildly to moderately reduced. Mild aortic regurg. Moderate mitral regurg. Mild to moderate tricuspid regurg. Large right pleural effusion. - CXR 01/15/21: small bilateral pleural effusions slightly improved from evaluation ~3 weeks ago - Diuresed with Bumex and furosemide. - Currently net negative 2 L - Per chart review from CHF clinic 1 week ago, lasix increased to 60mg po daily. They also note that dry weight is likely 160-170#. Weight of 92.5kg on admission (204 lbs). - Documented weight today of 86.9kg (191.5 lbs). - Hold home beta iris and Eliquis - Consulted Dr. Lofton, patient's freight checker. Appreciate his recommendations. - Documentation provided stating that if end-stage terminal condition, do not want heroic measures -- patient made DNR/DNI status - Continue active diuresis Hypotension - Maps in the low 60s, SBP 80s; started patient on low dose levophed - Wean levophed; maintain maps > 60 - Appreciate cardiology recommendations Chronic Atrial Fibrillation - Holding beta iris and Eliquis in setting of elevated INR - Continuous monitoring on telemetry Elevated troponin - Troponin on admission at 0.219; has been stable: 0.219 --> 0.232 --> 0.235 - Will continue to trend troponins to peak - Likely secondary to hypoxia RESPIRATORY: Acute Respiratory Alkalosis, improved - Currently on NC at 3L, maintaining O2 saturations > 92% GI/NUTRITION: Transaminitis, improving - Total bili 6.7, AST 1326, ALT 770, and alk phos 148 on admission Repeat 01/16: AST 993, ALT 623 Repeat 01/17: AST 604, ALT 497, alk phos 125 - Lactic acidosis with lactate of 6.6 on admission; lactate significantly improved to 1.7 on 01/17 Fluid Overload with Protein-Calorie Malnutrition/Anasarca - Albumin of 1.9 on admission; chronic - Will need nutrition support - Providing Albumin IV 25% x2 today RENAL/LYTES: LASHAWN on CKD - Now with hyperkalemia, K 6.3 on admission; hyperkalemia improving and is 4.6 today - Received dextrose, insulin, and sodium bicarb in ER; patient refused respiratory support - Closely monitor bicarb with BMP q6h - Troy catheter in place. Strict Is/Os - Maintain negative fluid balance Electrolyte replacement per ICU protocol GENITOURINARY: Troy catheter in place. Continue to monitor strict Is/Os. Maintain negative fluid balance. ENDO: Hypoglycemia - Per report, initially with hypoglycemia in 40s; has improved to 124 - Continue to monitor - Hypoglycemic ICU protocol - Hyperglycemia ICU protocol HEME: - INR elevated - Monitor for signs of bleeding ID: MSSA Bacteremia - Diagnosed with MSSA bacteremia on 11/19 during hospitalization at [facility] - Was discharged on Nafcillin 2gm IV q4h; scheduled to complete today, 01/17 Buttock wound - Per report, patient has wound on buttock but due to uncooperativeness will not permit evaluation - Will continue to monitor and plan for wound care consult Urine cx and blood cx collected 01/15 are negative to date Lines/IV Access: PIV DVT Prophylaxis: INR elevated at this time; defer further anticoagulation GI Prophylaxis: Protonix (2) Acute on chronic diastolic (congestive) heart failure: (3) Metabolic encephalopathy: (4) Hyperkalemia: (5) Chronic bilateral pleural effusions: (6) MSSA bacteremia: (7) Acute respiratory alkalosis: (8) Transaminitis: (9) Hyperbilirubinemia: (10) Malnutrition: Admission and Anticipated Discharge Date Admission Date: January 15, 2021 Supervising Physician Co-Signing Physician Notes Dr. Miles was resident physician during care of patient. I separately evaluated patient for bradshaw portions of the history and the exam. I was present during the critical portion of medical decision making, and I discussed the case with the resident. I generally agree with the findings and plan. Volume expansion with colloid and active diuresis and attempt to get off vasoactive medication. Discussed with cardiology. Patient was discussed in multidisciplinary rounds I have personally spent 35 minutes of critical care time in the direct management of this patient. This is a life/limb threatening event. This includes time spent evaluating patient, direct bedside care, chart review, placing orders, interpretation of diagnostic studies, discussion with consultants, patient, and/or family members regarding treatment decisions, as well as other required patient management activities. This time is exclusive of all separately billable procedures, and teaching time and separate from and in addition to any other critical care service time. Subjective Patient seen and evaluated at bedside this morning. States that he is overall feeling well other than he is hungry. No other complaints. Continues on levophed 0.02. Denies CP, SOB, cough, abd pain, nausea, OSBORN, lightheadedness, dizziness, or leg pain. Reports chronic b/l ankle pain but this is unchanged from his baseline. Review of Systems Constitutional: no fever and no chills Eyes: no problem reported Ear, Nose, Mouth, Throat: no problem reported Respiratory: no cough and no dyspnea Cardiovascular: no chest pain Gastrointestinal: no abdominal pain, no nausea and no vomiting Genitourinary: no problem reported Musculoskeletal: no problem reported Neurologic: no dizziness and no headache(s) Physical Exam Physical Exam: GENERAL: Elderly male in no acute distress. Sitting up eating breakfast in bed. Vital signs reviewed as above. EYES: EOMI. Slightly icteric sclerae. HENT: Moist mucous membranes. RESPIRATORY: Decreased breath sounds bilaterally but with good movement. No crackles appreciated. CARDIOVASCULAR: Regular rate and rhythm rhythm. + murmur. ABDOMEN: Soft, non-tender and non-distended. Normal bowel sounds. EXTREMITIES: 2+ BLE edema. Non-tender. SKIN: Warm, dry. NEUROLOGIC: A/O x2. Speech clear. No focal neurological deficits. PSYCHIATRIC: Cooperative. Results & Data Results & Data ([facility]) Vital Signs (Past 12 Hours) Vital Signs Temp Pulse Resp BP Pulse Ox 01/17/21 06:22 36.2 C L 98 H 10 L 99/69 L 92 01/17/21 06:07 36.2 C L 101 H 11 L 97/74 L 93 01/17/21 05:52 36.3 C L 86 18 110/75 01/17/21 05:37 36.3 C L 99 H 17 99/69 L 01/17/21 05:22 36.3 C L 99 H 13 94 01/17/21 05:07 36.3 C L 100 H 13 91/67 L 95 01/17/21 05:01 36.5 C 01/17/21 04:52 36.2 C L 99 H 18 93/62 L 95 01/17/21 04:37 36.2 C L 99 H 16 90/63 L 91 01/17/21 04:22 36.2 C L 102 H 83/62 L 92 01/17/21 04:07 36.2 C L 98 H 13 85/64 L 94 01/17/21 03:52 36.3 C L 99 H 14 92/64 L 95 01/17/21 03:37 36.3 C L 96 H 12 96/72 L 96 01/17/21 03:30 36.3 C L 118 H 13 95 01/17/21 03:25 36.3 C L 79 20 01/17/21 03:07 36.4 C L 19 96/65 L 95 01/17/21 02:52 36.4 C L 100 H 11 L 94/66 L 95 01/17/21 02:37 36.4 C L 100 H 22 95/70 L 95 01/17/21 02:22 36.5 C 100 H 15 102/73 95 01/17/21 02:07 36.5 C 100 H 13 104/68 91 01/17/21 01:52 36.4 C L 100 H 12 95/73 L 96 01/17/21 01:37 36.4 C L 100 H 16 102/72 94 01/17/21 01:22 36.5 C 100 H 16 94/64 L 96 01/17/21 01:07 36.5 C 100 H 15 92/67 L 93 01/17/21 00:52 36.5 C 100 H 16 98/69 L 96 01/17/21 00:37 36.6 C 100 H 15 99/74 L 96 01/17/21 00:22 36.7 C 98 H 13 93/69 L 96 01/17/21 00:09 100 H 01/17/21 00:07 36.7 C 100 H 14 92/67 L 95 01/16/21 23:52 36.7 C 100 H 16 85/66 L 95 01/16/21 23:37 36.7 C 107 H 24 95/67 L 95 01/16/21 23:22 36.6 C 100 H 15 109/70 94 01/16/21 23:07 36.6 C 100 H 13 95/70 L 94 01/16/21 22:52 36.5 C 100 H 13 108/74 94 01/16/21 22:37 36.4 C L 99 H 13 102/73 95 01/16/21 22:22 36.2 C L 99 H 13 100/69 94 01/16/21 22:05 36.1 C L 99 H 14 83/60 L 94 01/16/21 21:44 35.9 C L 98 H 13 83/59 L 95 01/16/21 21:36 35.9 C L 98 H 14 84/59 L 94 01/16/21 21:06 35.7 C L 97 H 16 66/50 L 95 01/16/21 20:36 35.6 C L 97 H 14 92/61 L 94 01/16/21 20:06 35.6 C L 96 H 14 94/66 L 97 01/16/21 19:36 35.6 C L 95 H 14 108/75 97 01/16/21 19:06 35.5 C L 95 H 14 89/71 L 98 Laboratory Results 01/17/21 01/17/21 01/17/21 Range/Units 07:09 05:03 05:03 WBC (4.8-10.8) K/uL RBC (4.7-6.1) M/uL Hgb (14.0-18.0) g/dL Hct (42-52) % MCV (80-100) fL MCH (25-34) pg MCHC (32-36) g/dL RDW Std Deviation (36.4-46.3) fL RDW Coeff of Osito (11.5-14.5) % Plt Count (130-400) K/uL MPV (7.4-10.4) fL Immature Gran % (Auto) % Neut % (Auto) % Lymph % (Auto) % [place] % (Auto) % Eos % (Auto) % Baso % (Auto) % Neut # (Auto) (1.4-6.5) K/uL Lymph # (Auto) (1.2-3.4) K/uL [place] # (Auto) (0.11-0.59) K/uL Eos # (Auto) (0-0.5) K/uL Baso # (Auto) (0-0.2) K/uL Immature Gran # (Auto) (0.00-0.02) K/uL Absolute Nucleated RBC (0-0) K/uL Nucleated RBC % (auto) % Polychromasia Pappenheimer Bodies Echinocytes PT (9.0-12.0) Seconds INR (0.9-1.1) Sodium (136-145) mmol/L Potassium (3.5-5.1) mmol/L Chloride (98-107) mmol/L Carbon Dioxide (21-32) mmol/L Anion Gap (3-11) BUN (7-18) mg/dl Creatinine (0.6-1.4) mg/dl Est Cr Clr Drug Dosing ml/min Est GFR ( Amer) ml/min Est GFR (Non-Af Amer) ml/min BUN/Creatinine Ratio (10-20) Glucose (70-99) mg/dl POC Glucose 127 H (70-99) mg/dl Lactate 1.1 (0.4-2.0) mmol/L Calcium (8.5-10.1) mg/dl Phosphorus (2.5-4.9) mg/dl Magnesium (1.8-2.4) mg/dl Total Bilirubin (0.2-1) mg/dl Direct Bilirubin (0-0.2) mg/dl AST (15-37) U/L ALT (12-78) U/L Alkaline Phosphatase (45-117) U/L Troponin I (0-0.045) ng/ml Total Protein (6.4-8.2) gm/dl Albumin (3.4-5.0) gm/dl Random Cortisol 11.22 mcg/dl 01/17/21 01/17/21 01/17/21 Range/Units 05:03 05:03 05:03 WBC 5.83 (4.8-10.8) K/uL RBC 3.55 L (4.7-6.1) M/uL Hgb 12.7 L (14.0-18.0) g/dL Hct 36.4 L (42-52) % MCV 102.5 H (80-100) fL MCH 35.8 H (25-34) pg MCHC 34.9 (32-36) g/dL RDW Std Deviation 66.7 H (36.4-46.3) fL RDW Coeff of Osito 22.4 H (11.5-14.5) % Plt Count 160 (130-400) K/uL MPV 11.1 H (7.4-10.4) fL Immature Gran % (Auto) 1.7 % Neut % (Auto) 73.5 % Lymph % (Auto) 14.4 % [place] % (Auto) 7.7 % Eos % (Auto) 2.2 % Baso % (Auto) 0.5 % Neut # (Auto) 4.28 (1.4-6.5) K/uL Lymph # (Auto) 0.84 L (1.2-3.4) K/uL [place] # (Auto) 0.45 (0.11-0.59) K/uL Eos # (Auto) 0.13 (0-0.5) K/uL Baso # (Auto) 0.03 (0-0.2) K/uL Immature Gran # (Auto) 0.10 H (0.00-0.02) K/uL Absolute Nucleated RBC 0.23 H (0-0) K/uL Nucleated RBC % (auto) 3.9 % Polychromasia 1+ Pappenheimer Bodies 1+ Echinocytes 2+ PT 20.7 H (9.0-12.0) Seconds INR 2.2 H (0.9-1.1) Sodium 141 (136-145) mmol/L Potassium 3.4 L D (3.5-5.1) mmol/L Chloride 108 H (98-107) mmol/L Carbon Dioxide 27 (21-32) mmol/L Anion Gap 6.0 (3-11) BUN 54 H (7-18) mg/dl Creatinine 2.32 H D (0.6-1.4) mg/dl Est Cr Clr Drug Dosing 24.2 ml/min Est GFR ( Amer) 28.0 ml/min Est GFR (Non-Af Amer) 24.2 ml/min BUN/Creatinine Ratio 23.4 H (10-20) Glucose 121 H (70-99) mg/dl POC Glucose (70-99) mg/dl Lactate (0.4-2.0) mmol/L Calcium 8.1 L (8.5-10.1) mg/dl Phosphorus 3.9 (2.5-4.9) mg/dl Magnesium 1.7 L (1.8-2.4) mg/dl Total Bilirubin 7.6 H (0.2-1) mg/dl Direct Bilirubin 5.0 H (0-0.2) mg/dl AST 604 H (15-37) U/L ALT 497 H (12-78) U/L Alkaline Phosphatase 125 H (45-117) U/L Troponin I 0.230 H* (0-0.045) ng/ml Total Protein 5.1 L (6.4-8.2) gm/dl Albumin 1.3 L (3.4-5.0) gm/dl Random Cortisol mcg/dl 01/17/21 01/16/21 01/16/21 Range/Units 03:44 23:21 16:09 WBC (4.8-10.8) K/uL RBC (4.7-6.1) M/uL Hgb (14.0-18.0) g/dL Hct (42-52) % MCV (80-100) fL MCH (25-34) pg MCHC (32-36) g/dL RDW Std Deviation (36.4-46.3) fL RDW Coeff of Osito (11.5-14.5) % Plt Count (130-400) K/uL MPV (7.4-10.4) fL Immature Gran % (Auto) % Neut % (Auto) % Lymph % (Auto) % [place] % (Auto) % Eos % (Auto) % Baso % (Auto) % Neut # (Auto) (1.4-6.5) K/uL Lymph # (Auto) (1.2-3.4) K/uL [place] # (Auto) (0.11-0.59) K/uL Eos # (Auto) (0-0.5) K/uL Baso # (Auto) (0-0.2) K/uL Immature Gran # (Auto) (0.00-0.02) K/uL Absolute Nucleated RBC (0-0) K/uL Nucleated RBC % (auto) % Polychromasia Pappenheimer Bodies Echinocytes PT (9.0-12.0) Seconds INR (0.9-1.1) Sodium (136-145) mmol/L Potassium (3.5-5.1) mmol/L Chloride (98-107) mmol/L Carbon Dioxide (21-32) mmol/L Anion Gap (3-11) BUN (7-18) mg/dl Creatinine (0.6-1.4) mg/dl Est Cr Clr Drug Dosing ml/min Est GFR ( Amer) ml/min Est GFR (Non-Af Amer) ml/min BUN/Creatinine Ratio (10-20) Glucose (70-99) mg/dl POC Glucose 111 H 96 77 (70-99) mg/dl Lactate (0.4-2.0) mmol/L Calcium (8.5-10.1) mg/dl Phosphorus (2.5-4.9) mg/dl Magnesium (1.8-2.4) mg/dl Total Bilirubin (0.2-1) mg/dl Direct Bilirubin (0-0.2) mg/dl AST (15-37) U/L ALT (12-78) U/L Alkaline Phosphatase (45-117) U/L Troponin I (0-0.045) ng/ml Total Protein (6.4-8.2) gm/dl Albumin (3.4-5.0) gm/dl Random Cortisol mcg/dl 01/16/21 Range/Units 11:22 WBC (4.8-10.8) K/uL RBC (4.7-6.1) M/uL Hgb (14.0-18.0) g/dL Hct (42-52) % MCV (80-100) fL MCH (25-34) pg MCHC (32-36) g/dL RDW Std Deviation (36.4-46.3) fL RDW Coeff of Osito (11.5-14.5) % Plt Count (130-400) K/uL MPV (7.4-10.4) fL Immature Gran % (Auto) % Neut % (Auto) % Lymph % (Auto) % [place] % (Auto) % Eos % (Auto) % Baso % (Auto) % Neut # (Auto) (1.4-6.5) K/uL Lymph # (Auto) (1.2-3.4) K/uL [place] # (Auto) (0.11-0.59) K/uL Eos # (Auto) (0-0.5) K/uL Baso # (Auto) (0-0.2) K/uL Immature Gran # (Auto) (0.00-0.02) K/uL Absolute Nucleated RBC (0-0) K/uL Nucleated RBC % (auto) % Polychromasia Pappenheimer Bodies Echinocytes PT (9.0-12.0) Seconds INR (0.9-1.1) Sodium (136-145) mmol/L Potassium (3.5-5.1) mmol/L Chloride (98-107) mmol/L Carbon Dioxide (21-32) mmol/L Anion Gap (3-11) BUN (7-18) mg/dl Creatinine (0.6-1.4) mg/dl Est Cr Clr Drug Dosing ml/min Est GFR ( Amer) ml/min Est GFR (Non-Af Amer) ml/min BUN/Creatinine Ratio (10-20) Glucose (70-99) mg/dl POC Glucose 83 (70-99) mg/dl Lactate (0.4-2.0) mmol/L Calcium (8.5-10.1) mg/dl Phosphorus (2.5-4.9) mg/dl Magnesium (1.8-2.4) mg/dl Total Bilirubin (0.2-1) mg/dl Direct Bilirubin (0-0.2) mg/dl AST (15-37) U/L ALT (12-78) U/L Alkaline Phosphatase (45-117) U/L Troponin I (0-0.045) ng/ml Total Protein (6.4-8.2) gm/dl Albumin (3.4-5.0) gm/dl Random Cortisol mcg/dl Resident Activity Tracking Resident Involvement: Resident Care Provided Care Provided: Adult Hospital Medicine
[2021-01-17] MEDS: ALBUMIN 25% 12.5 GM/50 ML VIAL IV SCH ×2 (07:01→07:50)
[2021-01-17] MEDS: FLUoxetine HCL 10 MG CAP PO SCH (07:31)
[2021-01-17] MEDS: FERROUS SULFATE 325 MG TAB PO SCH ×2 (07:31→20:55)
[2021-01-17] MEDS: PANTOprazole 40 MG TAB PO SCH ×2 (07:31→20:55)
[2021-01-17] MEDS: MIRTAZAPINE TAB 15 MG TAB PO SCH (07:31)
[2021-01-17] MEDS: DOCUSATE SODIUM 100 MG CAP PO SCH ×2 (07:31→20:55)
--- NOTE | 2021-01-17 08:03 | Hospitalist Progress Note ---
Date of Service January 17, 2021 Assessment & Plan (1) Sepsis: Plan: pt admitted with hypotension, did require pressors for some time, now urine culture shows enterococcus, and in retrospect has VRE in urine 12/24 and 01/04, resistant to pcn. initially the lower blood pressure thought to be from HFPEF now likley sepsis will treat to daptomycin. (2) Hypotension: Plan: secondary to HFpEF, but also previous MSSA bacteremia, and now with abnormal ua, showing enterococcus Possible severe sepsis, POA due to 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, stage 2-3 pressure ulcer of sacrum, pt with good response with pressors now weaned off (3) Acute on chronic diastolic (congestive) heart failure: Plan: decompensated HFpEF with hepatic congestion - diurese withIV BUMEX , given protein malnutrition consider albumin only if parenteral diuresis is ineffective - ECHO in November with evidence of flattened septum EF 45-50% and mild LVH with mild to moderate mitral regurge -Weight up compared to HF clinic dry weights (4) Acute kidney injury: Plan: Acute on chronic kidney disease stage 3- with hyperkalemia-> potassium now improved, Cr about the same (5) Acute respiratory alkalosis: Plan: Acute respiratory alkalosis with appropriate metabolic response- uncompensated tachypnea from heart failure - with hypoxia-pt responding to down titrating antibiotics - (6) Transaminitis: Plan: Currently appears to be from hepatic congestion, INR elevated (7) Elevated troponin: Plan: demand ischemia and renal failure impacting troponin levels (8) Edema, peripheral: Plan: As above (9) Malnutrition: Plan: Chronic moderate protein malnutrition- nutrition support (10) Atrial fibrillation, permanent: Plan: Afib vs SVT on arrival to [facility]- appears more fib at this time, blood pressure limints negative chronotropic meds - holding eliquis in the setting of elevated INR - consider vitamin K dosing if inr worsens (11) MSSA bacteremia: Plan: completed Nafcillin 2GM IV q4 hours, blood culture x4 no growth to date. (12) Chronic bilateral pleural effusions: Plan: stable appearing and slightly improved on today's CXR (13) Metabolic encephalopathy: Plan: Multifactorial with elevated liver enzymes, and uremia and hypoxia - may need gentle sedation for respiratory support- defer to ICU precedex vs. Haldol - (14) Hyperkalemia: Admission and Anticipated Discharge Date Admission Date: January 15, 2021 Subjective He is more alert and conversant today otherwise feels well, he denies any chest pain, dyspnea at rest, orthopnea, or lightheadedness. He cannot remember the previous few days Mild hypotension without evidence of hypoperfusion now off norepinephrine, rhythm remains atrial flutter with controlled ventricular response, urine output of nearly 3 L. Review of Systems Review of Systems: Moderate distress and fatigue no headache, no visual changes no speech or swallowing issues no chest pain, pressure or palpitations no shortness of breath, cough or wheezes no abdominal pain, nausea or vomiting, diarrhea or constipation no dysuria, hematuria or frequency no focal joint pain, does have significant lower extremity swelling no back pain, CVA tenderness or radicular pain no bruising, bleeding or rashes no focal signs of weakness or numbness or altered sensation no complaints of anxiety or depression.. Physical Exam Physical Exam: The patient appeared well nourished and normally developed. Vital signs as documented. Head exam is normocephalic atraumatic Neck is with 3 cm JVD, no thyromegaly or carotid bruits. Lungs are clear to auscultation may be scant rales at the base Cardiac exam, Rhythm is regular.. Significant systolic murmur at the base Abdominal exam reveals normal bowel sounds, soft non tender, no masses Extremities are 3+ edema bilaterally and both pedal pulses are present Neurologic exam is alert and oriented, no focal loss of strength or sensation Skin is without bruises or rashes Psychologically is without concerns for anxiety or depression Results & Data Results & Data ([facility]) Vital Signs (Past 12 Hours) Vital Signs Temp Pulse Resp BP Pulse Ox 01/17/21 06:22 97.2 F L 98 H 10 L 99/69 L 92 01/17/21 06:07 97.2 F L 101 H 11 L 97/74 L 93 01/17/21 05:52 97.3 F L 86 18 110/75 01/17/21 05:37 97.3 F L 99 H 17 99/69 L 01/17/21 05:22 97.3 F L 99 H 13 94 01/17/21 05:07 97.3 F L 100 H 13 91/67 L 95 01/17/21 05:01 97.7 F 01/17/21 04:52 97.2 F L 99 H 18 93/62 L 95 01/17/21 04:37 97.2 F L 99 H 16 90/63 L 91 01/17/21 04:22 97.2 F L 102 H 83/62 L 92 01/17/21 04:07 97.2 F L 98 H 13 85/64 L 94 01/17/21 03:52 97.3 F L 99 H 14 92/64 L 95 01/17/21 03:37 97.3 F L 96 H 12 96/72 L 96 01/17/21 03:30 97.3 F L 118 H 13 95 01/17/21 03:25 97.3 F L 79 20 01/17/21 03:07 97.5 F L 19 96/65 L 95 01/17/21 02:52 97.5 F L 100 H 11 L 94/66 L 95 01/17/21 02:37 97.5 F L 100 H 22 95/70 L 95 01/17/21 02:22 97.7 F 100 H 15 102/73 95 01/17/21 02:07 97.7 F 100 H 13 104/68 91 01/17/21 01:52 97.5 F L 100 H 12 95/73 L 96 01/17/21 01:37 97.5 F L 100 H 16 102/72 94 01/17/21 01:22 97.7 F 100 H 16 94/64 L 96 01/17/21 01:07 97.7 F 100 H 15 92/67 L 93 01/17/21 00:52 97.7 F 100 H 16 98/69 L 96 01/17/21 00:37 97.9 F 100 H 15 99/74 L 96 01/17/21 00:22 98.1 F 98 H 13 93/69 L 96 01/17/21 00:09 100 H 01/17/21 00:07 98.1 F 100 H 14 92/67 L 95 01/16/21 23:52 98.1 F 100 H 16 85/66 L 95 01/16/21 23:37 98.1 F 107 H 24 95/67 L 95 01/16/21 23:22 97.9 F 100 H 15 109/70 94 01/16/21 23:07 97.9 F 100 H 13 95/70 L 94 01/16/21 22:52 97.7 F 100 H 13 108/74 94 01/16/21 22:37 97.5 F L 99 H 13 102/73 95 01/16/21 22:22 97.2 F L 99 H 13 100/69 94 01/16/21 22:05 97.0 F L 99 H 14 83/60 L 94 01/16/21 21:44 96.6 F L 98 H 13 83/59 L 95 01/16/21 21:36 96.6 F L 98 H 14 84/59 L 94 01/16/21 21:06 96.3 F L 97 H 16 66/50 L 95 01/16/21 20:36 96.1 F L 97 H 14 92/61 L 94 01/16/21 20:06 96.1 F L 96 H 14 94/66 L 97 PG Care Time/CCT Total # of Minutes Spent Total Time Spent with Patient: Total time spent is greater than 50% in coordination of care (as documented) at patient's floor/unit and/or counseling patient: Coding Level of Care Code 63327 Subseq Hosp Care Lvl 3 Diagnoses Hypotension I95.9 Acute on chronic diastolic (congestive) heart failure I50.33 Acute kidney injury N17.9 Acute respiratory alkalosis E87.3 Transaminitis R74.01 Elevated troponin R77.8 Edema, peripheral R60.9 Malnutrition E46 Atrial fibrillation, permanent I48.21 MSSA bacteremia R78.81; B95.61 Chronic bilateral pleural effusions J90 Metabolic encephalopathy G93.41 Hyperkalemia E87.5 Sepsis A41.9
[2021-01-17] MEDS ORDERED: FUROSEMIDE 40 MG in SYRINGE 0 ML IV ONE (09:00)
--- NOTE | 2021-01-17 09:34 | Billing Data ---
Date of Service January 17, 2021 Coding Level of Care Code Critical Care 1st - mins
--- NOTE | 2021-01-17 15:38 | Cardiology Progress Note ---
Date of Service January 17, 2021 Assessment & Plan (1) Right heart failure, NYHA class 4: (2) Acute on chronic diastolic (congestive) heart failure: (3) Moderate mitral regurgitation: (4) Elevated troponin: (5) Atrial flutter with rapid ventricular response: (6) At risk for change in mental status: Plan: Right heart failure disproportionate to left heart failure. Echocardiogram showed only mildly reduced LVEF and mild to moderately reduced RVEF, no immediate role for inotropic medications. Mainstay of therapy remains diuresis as tolerated, fortunately his creatinine continues to improve as he demonstrates brisk diuresis. As noted previously, would attempt to wean pressor support as long as he shows no evidence of hypoperfusion. Historically his systolic blood pressure runs in the 90-110 mmHg range. Although he is steadily improving in the near term, his debilitation and profound hypoalbuminemia (1.3) confer a poor mid to long-term prognosis. Have discussed with family further consideration of goals of care, in the near term continued supportive care is desired with maintenance of DNR status (avoiding heroic efforts should his clinical status decline). I will be away for the next 4 days, please contact [facility] coverage cardiology if further input regarding his cardiac status is desired during this time. Admission and Anticipated Discharge Date Admission Date: January 15, 2021 Subjective He is more alert and conversant today and his metabolic parameters continue to improve. He notes only mild ankle pain (a chronic complaint) but otherwise feels well, he denies any chest pain, dyspnea at rest, orthopnea, or lightheadedness. Mild hypotension without evidence of hypoperfusion (still on low-dose norepinephrine), rhythm remains atrial flutter with controlled ventricular response (90-100 bpm), urine output of nearly 3 L. Physical Exam Physical Exam: Does not appear distressed at the moment. Systolic blood pressure approximately 80 mmHg on low-dose norepinephrine. Pulse 90-100 bpm and regular. Skin: no ecchymoses or generalized lesions. HEENT: unremarkable. Neck: Jugular venous pulse still elevated, no carotid bruits. Lungs: Moderately decreased breath sounds with dullness at the bases but generally clear. No accessory muscle use. Cardiac: fairly regular rhythm, 2/6 apical holosystolic murmur, no diastolic murmur or gallop. Abdomen: benign. Extremities: 3+ lower extremity edema. Neurologic: Appropriate affect and conversation, grossly nonfocal. Results & Data ([facility]) Laboratory Results INR 2.2 (down from 3.2). Troponin 0.230 (flat curve). Potassium 3.4, magnesium 1.7, with otherwise normal electrolytes, BUN 54, creatinine 2.32 (improving). Normal white count, hemoglobin 12.7, normal platelet count. AST 604 (improving), ALT 497 (improving). Diagnostic Findings ECG showed probable atrial flutter with controlled ventricular response at 99 bpm, old inferior infarct. Compared with 01/16/2021 ECG, no significant change. Echocardiogram showed mildly reduced systolic function (LVEF 45 to 50%), with mild to moderately reduced right ventricular systolic function, mild aortic regurgitation, moderate mitral regurgitation, mild to moderate tricuspid regurgitation with normal R RV systolic pressure. Dilated inferior vena cava. Large right pleural effusion. PG Care Time/CCT Total # of Minutes Spent Total Time Spent with Patient: Total time spent is greater than 50% in coordination of care (as documented) at patient's floor/unit and/or counseling patient: Coding Level of Care Code 32714 Subseq Hosp Care Lvl 3 Diagnoses Right heart failure, NYHA class 4 I50.810 Acute on chronic diastolic (congestive) heart failure I50.33 Moderate mitral regurgitation I34.0 Elevated troponin R77.8 Atrial flutter with rapid ventricular response I48.92 At risk for change in mental status Z91.89
[2021-01-17] MEDS: FUROSEMIDE 40 MG in SYRINGE 0 ML IV SCH (16:29)
[2021-01-17] MEDS ORDERED: ICU ELECTROLYTE REPLACEMENT PROTOCOL SCH (18:00)
--- NOTE | 2021-01-17 18:27 | Electrocardiogram Report ---
Test Reason : Blood Pressure : / mmHG Vent. 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
[2021-01-17] MEDS: NOREPINEPHRINE/D5W 8 MG/508 ML BAG IV SCH (20:28)
[2021-01-17] MEDS: MELATONIN 3 MG TAB PO SCH (20:55)
[2021-01-17] MEDS: DAPTOmycin 475 MG in SYRINGE 0 ML IV SCH (20:55)
[2021-01-17] MEDS ORDERED: Nursing to Pharmacy Communication SCH (22:30)
[2021-01-17 22:54] LABS: BUN Creatinine Ratio 24.2 (10-20); Est GFR (African American) 29.2 ml/min; Est GFR (Non-African American) 25.2 ml/min; Potassium 3.3 mmol/L (3.5-5.1)
[2021-01-17] MEDS ORDERED: POTASSIUM CHLORIDE 20 MEQ/15 ML UDC PO STA (23:14)
[2021-01-18 05:07] LABS: Basophils # (auto) 0.02 K/uL (0-0.2); Basophils % (auto) 0.4 %; Eosinophils # (auto) 0.13 K/uL (0-0.5); Eosinophils % (auto) 2.7 %; Hematocrit (blood only) 35.2 % (42-52); Hemoglobin 12.3 g/dL (14.0-18.0); Immature Granulocytes # (auto) 0.04 K/uL (0.00-0.02); Immature Granulocytes % (auto) 0.8 %; Lymphocytes # (auto) 1.03 K/uL (1.2-3.4); Lymphocytes % (auto) 21.1 %; Mean Corpuscular Hemoglobin 36.2 pg (25-34); Mean Corpuscular Hgb Conc 34.9 g/dL (32-36); Mean Corpuscular Volume 103.5 fL (80-100); Mean Platelet Volume 10.6 fL (7.4-10.4); Monocytes # (auto) 0.43 K/uL (0.11-0.59); Monocytes % (auto) 8.8 %; Neutrophils # (auto) 3.22 K/uL (1.4-6.5); Neutrophils % (auto) 66.2 %; Nucleated RBC # (auto) 0.15 K/uL (0-0); Platelet Count 130 K/uL (130-400); RDW Coefficient of Variation 22.8 % (11.5-14.5); White Blood Count 4.87 K/uL (4.8-10.8)
[2021-01-18 05:18] LABS: INR 1.6 (0.9-1.1); Prothrombin Time 15.7 Seconds (9.0-12.0)
[2021-01-18 05:53] LABS: Anisocytosis Present; Echinocytes 1+; Pappenheimer Bodies 2+; Polychromasia 1+
[2021-01-18 05:59] LABS: BUN Creatinine Ratio 24.7 (10-20); Calcium 7.8 mg/dl (8.5-10.1); Creatinine Clr Calc Pharmacy 26.7 ml/min; Est GFR (African American) 31.6 ml/min; Est GFR (Non-African American) 27.3 ml/min; Magnesium 1.8 mg/dl (1.8-2.4); Phosphorus 3.6 mg/dl (2.5-4.9); Potassium 3.3 mmol/L (3.5-5.1)
[2021-01-18] MEDS ORDERED: MAGNESIUM SULFATE / D5W 1 GM/100 ML BAG IV ONE ×2 (08:06→20:37)
[2021-01-18] MEDS: DOCUSATE SODIUM 100 MG CAP PO SCH ×2 (08:17→20:17)
[2021-01-18] MEDS: FERROUS SULFATE 325 MG TAB PO SCH ×2 (08:17→20:17)
[2021-01-18] MEDS: PANTOprazole 40 MG TAB PO SCH ×2 (08:17→20:17)
[2021-01-18] MEDS: MIRTAZAPINE TAB 15 MG TAB PO SCH (08:17)
[2021-01-18] MEDS: FLUoxetine HCL 10 MG CAP PO SCH (08:17)
[2021-01-18] MEDS: FUROSEMIDE 40 MG in SYRINGE 0 ML IV SCH ×2 (08:17→17:08)
[2021-01-18] MEDS: POTASSIUM CHLORIDE CRTAB 20 MEQ TABCR PO SCH (08:19)
[2021-01-18] MEDS: APIXABAN 2.5 MG TAB PO SCH ×2 (09:17→20:17)
--- NOTE | 2021-01-18 10:32 | Hospitalist Progress Note ---
Date of Service January 18, 2021 Assessment & Plan (1) Acute on chronic diastolic (congestive) heart failure: Plan: Presented with decompensated HFpEF with hepatic congestion and right-sided heart failure Appreciate cardiology consultation His weight was up significantly since previous admission Has now diuresed net -7.3 L and continues to diurese throughout the day Peripheral edema is improving With bilateral pleural effusions on x-ray Hypoxia is now improving-now off oxygen Echocardiogram here with EF 45-50%, positive wall motion abnormalities, mild AI, moderate MR, mild to moderate TR, and mild to moderate RV dysfunction Given protein malnutrition consider albumin only if parenteral diuresis is ineffective -Continue Lasix 40 mg IV twice daily Continue to follow BMP and replace potassium and magnesium to keep above 4 and 2 respectively -Gave a total of 80 mEq of potassium chloride p.o. today and 1 g of IV magnesium sulfate (2) Sepsis: Plan: Sepsis, POA Pt admitted with hypotension thought to be secondary to cardiogenic shock, did require pressors for some time and now weaned off, but may have been from septic shock from VRE UTI? He did not have leukocytosis or fever though Lactate was elevated at 6 but may have been from shock liver Urine culture shows VRE, and in retrospect has VRE in urine 12/24 and 01/04, resistant to pcn Started daptomycin on 01/17-would continue for 10 days Maintain Troy catheter for now but will likely discontinue tomorrow once he is more mobile as he is diuresing copious amounts (3) Acute metabolic encephalopathy: Plan: presented with such related to hypoxia, shock liver, CHF, renal failure, possible sepsis, and hypoglycemia now seems much improved Supportive care, continue treating UTI (4) Hypotension: Plan: secondary to acute HFpEF, as well as sepsis as above Possible severe sepsis, POA due to 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, stage 2-3 pressure ulcer of sacrum, pt with good response with pressors now weaned off Continue to hold home metoprolol Giving diuresis as above (5) Shock liver: Plan: LFs up significantly check LFTs again now check CT abd/pel given h/o acute samson with lots of adhesions during surgery, need to assess for CBD dilation most likely seems to be hepatic congestion from right sided heart failure but given complex surgical history about 6 months ago, need to check for choledocholithiasis (6) Acute kidney injury: Plan: Acute on chronic kidney disease stage 3- with hyperkalemia on admission-> potassium now improved, Cr stable at 2.0 -Avoid nephrotoxins -renally dose meds when appropriate -follow BMP (7) VRE (vancomycin-resistant Enterococci) infection: Plan: As above, UTI Treated with daptomycin (8) Transaminitis: Plan: Secondary to shock liver Improving (9) Elevated troponin: Plan: demand ischemia and renal failure impacting troponin levels (10) Edema, peripheral: Plan: Improving with diuresis (11) Malnutrition: Plan: Chronic moderate protein malnutrition- nutrition support (12) Atrial fibrillation, permanent: Plan: Atrial flutter and Afib on telemetry here, with SVT on arrival on ECG His blood pressure was limiting the addition of his metoprolol back on-continued home metoprolol but blood pressures are improving now -INR is trending downward and elevated INR from shock liver does not necessarily anticoagulate him. Nonetheless, INR is down to 1.6 -Restart Eliquis, however he should be on the lower dose of 2.5 mg p.o. twice daily given age greater than 80 and creatinine greater than 1.5 Continue to monitor on telemetry (13) MSSA bacteremia: Plan: A history of such from previous admission Completed Nafcillin 2GM IV q4 hours course on 01/17, blood culture x4 no growth to date. (14) Chronic bilateral pleural effusions: Plan: stable appearing and slightly improved on last CXR Continue diuresis (15) Hyperkalemia: Plan: Present on admission secondary to acute kidney injury, now improved (16) Depression: Plan: With labile mood related to critical illness and multiple recent hospitalizations, frustration with being ill and in the hospital Continue home Paxil 10 mg daily Mirtazapine is ordered for the morning but this can make him very drowsy-we will change to at bedtime dosing for tomorrow Emotional support given Plan: DVT prophylaxis-starting Eliquis Disposition-continued stay on PCU PT/OT consults ordered, will likely need rehab placement early next week Admission and Anticipated Discharge Date Admission Date: January 15, 2021 Subjective Patient seen twice today. In the morning, he reported feeling well. He denied shortness of breath or chest pain, no abdominal pain. He was getting out of bed to the bedside chair with the nurses. I saw him again later in the evening and he was crying and said he wished he would "just kick the bucket." He was upset about still being in the hospital. I tried to give him reassurance that I thought he was improving. I asked him if he wanted something to help him sleep and he declined for now, but said he would ask for it later if he felt he needed it. I discussed his care with Dr. Lofton of cardiology as well as the pharmacist. Review of Systems Review of Systems: All systems reviewed & are unremarkable except as noted in HPI & below Physical Exam Constitutional: WD/WN, vitals as above Eyes: + anicteric sclerae ENMT: external ear and nose normal, oropharynx normal Neck: trachea midline, no thyromegaly Respiratory: normal respiratory effort, lungs clear to auscultation Cardiovascular: Rate/Rhythm: regular rate and + irregularly irregular Heart Sounds: no murmur Extremities: + edema (2+ pitting edema to the knees bilaterally) Chest (Breasts): Chest: normal inspection of chest Gastrointestinal (Abdomen): normal bowel sounds, soft, nontender, no hepatosplenomegaly Musculoskeletal: Extremities: extremities normal to inspection; no cyanosis and no clubbing Skin: no rashes, warm and dry Neurologic: moves all extremities and awake; no focal motor deficits Psychiatric: Orientation: alert, oriented to person, oriented to place and cooperative Affect: + depressed affect Genitourinary: Troy catheter in place draining clear yellow urine Lymphatic: no lymphedema Results & Data Results & Data ([facility]) Vital Signs (Past 12 Hours) Vital Signs Temp Pulse Resp BP Pulse Ox 01/18/21 08:09 36.5 C 99 H 14 113/71 92 01/18/21 07:07 89 16 90/70 L 90 01/18/21 06:16 36.3 C L 01/18/21 06:07 98 H 12 107/75 92 01/18/21 05:07 36.4 C L 99 H 14 89/66 L 92 01/18/21 04:07 36.5 C 99 H 89/67 L 95 01/18/21 03:07 36.4 C L 99 H 12 110/88 98 01/18/21 02:28 36.4 C L 98 H 12 90/72 L 93 01/18/21 02:07 36.4 C L 99 H 87/66 L 91 01/18/21 01:07 36.4 C L 99 H 12 91/66 L 91 01/18/21 00:07 36.4 C L 100 H 17 98/72 L 96 01/17/21 23:07 36.4 C L 99 H 13 105/80 95 01/17/21 22:49 99 H Laboratory Results 01/18/21 01/18/21 01/18/21 Range/Units 20:08 19:05 17:11 WBC (4.8-10.8) K/uL RBC (4.7-6.1) M/uL Hgb (14.0-18.0) g/dL Hct (42-52) % MCV (80-100) fL MCH (25-34) pg MCHC (32-36) g/dL RDW Std Deviation (36.4-46.3) fL RDW Coeff of Osito (11.5-14.5) % Plt Count (130-400) K/uL MPV (7.4-10.4) fL Immature Gran % (Auto) % Neut % (Auto) % Lymph % (Auto) % Gilliam % (Auto) % Eos % (Auto) % Baso % (Auto) % Neut # (Auto) (1.4-6.5) K/uL Lymph # (Auto) (1.2-3.4) K/uL Gilliam # (Auto) (0.11-0.59) K/uL Eos # (Auto) (0-0.5) K/uL Baso # (Auto) (0-0.2) K/uL Immature Gran # (Auto) (0.00-0.02) K/uL Absolute Nucleated RBC (0-0) K/uL Nucleated RBC % (auto) % Polychromasia Anisocytosis Pappenheimer Bodies Echinocytes PT (9.0-12.0) Seconds INR (0.9-1.1) Sodium 139 (136-145) mmol/L Potassium 3.0 L (3.5-5.1) mmol/L Chloride 101 (98-107) mmol/L Carbon Dioxide 29 (21-32) mmol/L Anion Gap 9.0 (3-11) BUN 47 H (7-18) mg/dl Creatinine 2.01 H (0.6-1.4) mg/dl Est Cr Clr Drug Dosing 27.9 ml/min Est GFR ( Amer) 33.3 ml/min Est GFR (Non-Af Amer) 28.8 ml/min BUN/Creatinine Ratio 23.2 H (10-20) Glucose 111 H (70-99) mg/dl POC Glucose 125 H 107 H (70-99) mg/dl Calcium 8.1 L (8.5-10.1) mg/dl Phosphorus (2.5-4.9) mg/dl Magnesium 1.9 (1.8-2.4) mg/dl Total Bilirubin (0.2-1) mg/dl AST (15-37) U/L ALT (12-78) U/L Alkaline Phosphatase (45-117) U/L Total Protein (6.4-8.2) gm/dl Albumin (3.4-5.0) gm/dl Globulin (2.5-4.0) gm/dl Albumin/Globulin Ratio (0.9-2) 01/18/21 01/18/21 01/18/21 Range/Units 10:37 04:36 04:36 WBC (4.8-10.8) K/uL RBC (4.7-6.1) M/uL Hgb (14.0-18.0) g/dL Hct (42-52) % MCV (80-100) fL MCH (25-34) pg MCHC (32-36) g/dL RDW Std Deviation (36.4-46.3) fL RDW Coeff of Osito (11.5-14.5) % Plt Count (130-400) K/uL MPV (7.4-10.4) fL Immature Gran % (Auto) % Neut % (Auto) % Lymph % (Auto) % Gilliam % (Auto) % Eos % (Auto) % Baso % (Auto) % Neut # (Auto) (1.4-6.5) K/uL Lymph # (Auto) (1.2-3.4) K/uL Gilliam # (Auto) (0.11-0.59) K/uL Eos # (Auto) (0-0.5) K/uL Baso # (Auto) (0-0.2) K/uL Immature Gran # (Auto) (0.00-0.02) K/uL Absolute Nucleated RBC (0-0) K/uL Nucleated RBC % (auto) % Polychromasia Anisocytosis Pappenheimer Bodies Echinocytes PT 15.7 H (9.0-12.0) Seconds INR 1.6 H (0.9-1.1) Sodium 139 (136-145) mmol/L Potassium 3.3 L (3.5-5.1) mmol/L Chloride 105 (98-107) mmol/L Carbon Dioxide 28 (21-32) mmol/L Anion Gap 6.0 (3-11) BUN 52 H (7-18) mg/dl Creatinine 2.10 H (0.6-1.4) mg/dl Est Cr Clr Drug Dosing 26.7 ml/min Est GFR ( Amer) 31.6 ml/min Est GFR (Non-Af Amer) 27.3 ml/min BUN/Creatinine Ratio 24.7 H (10-20) Glucose 114 H (70-99) mg/dl POC Glucose 151 H (70-99) mg/dl Calcium 7.8 L (8.5-10.1) mg/dl Phosphorus 3.6 (2.5-4.9) mg/dl Magnesium 1.8 (1.8-2.4) mg/dl Total Bilirubin 6.6 H (0.2-1) mg/dl AST 368 H (15-37) U/L ALT 410 H (12-78) U/L Alkaline Phosphatase 115 (45-117) U/L Total Protein 5.3 L (6.4-8.2) gm/dl Albumin 1.6 L (3.4-5.0) gm/dl Globulin 3.7 (2.5-4.0) gm/dl Albumin/Globulin Ratio 0.4 L (0.9-2) 01/18/21 01/17/21 Range/Units 04:36 22:31 WBC 4.87 (4.8-10.8) K/uL RBC 3.40 L (4.7-6.1) M/uL Hgb 12.3 L (14.0-18.0) g/dL Hct 35.2 L (42-52) % MCV 103.5 H (80-100) fL MCH 36.2 H (25-34) pg MCHC 34.9 (32-36) g/dL RDW Std Deviation 69.0 H (36.4-46.3) fL RDW Coeff of Osito 22.8 H (11.5-14.5) % Plt Count 130 (130-400) K/uL MPV 10.6 H (7.4-10.4) fL Immature Gran % (Auto) 0.8 % Neut % (Auto) 66.2 % Lymph % (Auto) 21.1 % Gilliam % (Auto) 8.8 % Eos % (Auto) 2.7 % Baso % (Auto) 0.4 % Neut # (Auto) 3.22 (1.4-6.5) K/uL Lymph # (Auto) 1.03 L (1.2-3.4) K/uL Gilliam # (Auto) 0.43 (0.11-0.59) K/uL Eos # (Auto) 0.13 (0-0.5) K/uL Baso # (Auto) 0.02 (0-0.2) K/uL Immature Gran # (Auto) 0.04 H (0.00-0.02) K/uL Absolute Nucleated RBC 0.15 H (0-0) K/uL Nucleated RBC % (auto) 3.0 % Polychromasia 1+ Anisocytosis Present Pappenheimer Bodies 2+ Echinocytes 1+ PT (9.0-12.0) Seconds INR (0.9-1.1) Sodium 139 (136-145) mmol/L Potassium 3.3 L (3.5-5.1) mmol/L Chloride 106 (98-107) mmol/L Carbon Dioxide 26 (21-32) mmol/L Anion Gap 8.0 (3-11) BUN 54 H (7-18) mg/dl Creatinine 2.24 H (0.6-1.4) mg/dl Est Cr Clr Drug Dosing 25.0 ml/min Est GFR ( Amer) 29.2 ml/min Est GFR (Non-Af Amer) 25.2 ml/min BUN/Creatinine Ratio 24.2 H (10-20) Glucose 134 H (70-99) mg/dl POC Glucose (70-99) mg/dl Calcium 8.0 L (8.5-10.1) mg/dl Phosphorus (2.5-4.9) mg/dl Magnesium 2.0 (1.8-2.4) mg/dl Total Bilirubin (0.2-1) mg/dl AST (15-37) U/L ALT (12-78) U/L Alkaline Phosphatase (45-117) U/L Total Protein (6.4-8.2) gm/dl Albumin (3.4-5.0) gm/dl Globulin (2.5-4.0) gm/dl Albumin/Globulin Ratio (0.9-2) PG Care Time/CCT Total # of Minutes Spent Total Time Spent with Patient: Total time spent is greater than 50% in coordination of care (as documented) at patient's floor/unit and/or counseling patient: Coding Level of Care Code 53423 Subseq Hosp Care Lvl 3 Diagnoses Sepsis A41.9 Hypotension I95.9 Acute on chronic diastolic (congestive) heart failure I50.33 Acute kidney injury N17.9 Transaminitis R74.01 Elevated troponin R77.8 Edema, peripheral R60.9 Malnutrition E46 Atrial fibrillation, permanent I48.21 MSSA bacteremia R78.81; B95.61 Chronic bilateral pleural effusions J90 Hyperkalemia E87.5 VRE (vancomycin-resistant Enterococci) infection A49.1; Z16.21 Shock liver K72.00 Acute metabolic encephalopathy G93.41 Depression F32.9
[2021-01-18 11:27] LABS: Albumin Globulin Ratio 0.4 (0.9-2); Albumin Level 1.6 gm/dl (3.4-5.0); Bilirubin,Total 6.6 mg/dl (0.2-1); Globulin 3.7 gm/dl (2.5-4.0); Total Protein 5.3 gm/dl (6.4-8.2)
--- NOTE | 2021-01-18 12:38 | CT Scan Report ---
ABDOMEN AND PELVIS CT WITHOUT CONTRAST CT DOSE: 538.49 mGy.cm HISTORY: Acutely elevated LFTs with recent cholecystectomy elevated LFTs,h/o cholecystectomy TECHNIQUE: Multiaxial CT images of the abdomen and pelvis were performed without contrast. A dose lo wering technique was utilized adhering to the principles of ALARA. COMPARISON STUDY: CT abdomen and pelvis 12/24/2020 FINDINGS: Moderate cardiomegaly. Moderate layering pleural effusions appear unchanged from comparison. Dependen t bibasilar consolidation suggestive of compressive atelectasis. Motion degraded exam. Limited evalua tion of the solid abdominal organs without the use of IV contrast. The unenhanced spleen, moderately atrophic pancreas, adrenal glands and liver are unremarkable. Cholecystectomy clips are noted. Nonobstructing bilateral nephrolithiasis redemonstrated measuring up to approximately 4 mm, right gre ater than left. No ureteral calculi or hydronephrosis. Moderate urinary bladder wall thickening with partial distention. Air within the nondependent bladder lumen is noted with Troy catheter. Small pos terior bladder diverticulum redemonstrated. Mild prostamegaly. Since of atherosclerosis of the aorta without aneurysm. No adenopathy. Surgical clips of the upper scrotum. Moderately distended debris-filled stomach. No small bowel obstruction or bowel wall thickening ident ified. Colonic diverticulosis. Mild to moderate fecal retention. Normal appendix. Diffuse mesenteric and body wall edema with small volume of abdominal pelvic ascites, similar to comparison. Left hip to earl joint arthroplasty. Degenerative changes of the spine and right hip. Lumbar levoscoliosis. IMPRESSION: 1. Cardiomegaly with fluid overload manifested by moderate pleural effusions, small volume of abdomin opelvic ascites and anasarca, similar to the 12/24/2020 exam. 2. No bowel obstruction or bowel wall thickening. 3. Colonic diverticulosis. 4. Bilateral nephrolithiasis. No ureteral calculi or hydronephrosis. 5. Additional findings as above. ACT 112: Negative or not required by law. The above report was generated using voice recognition software. It may contain grammatical, syntax o r spelling errors. Electronically signed by: Gabriel Beltran M.D. 01/18/2021 12:37 PM
[2021-01-18 19:33] LABS: BUN Creatinine Ratio 23.2 (10-20); Calcium 8.1 mg/dl (8.5-10.1); Creatinine Clr Calc Pharmacy 27.9 ml/min; Est GFR (African American) 33.3 ml/min; Est GFR (Non-African American) 28.8 ml/min; Magnesium 1.9 mg/dl (1.8-2.4)
[2021-01-18] MEDS ORDERED: POTASSIUM CHLORIDE CRTAB 20 MEQ TABCR PO STA ×2 (19:44→20:37)
[2021-01-18] MEDS: MELATONIN 3 MG TAB PO SCH (20:17)
[2021-01-19 02:49] LABS: Basophils # (auto) 0.02 K/uL (0-0.2); Basophils % (auto) 0.4 %; Hematocrit (blood only) 33.8 % (42-52); Hemoglobin 11.9 g/dL (14.0-18.0); Immature Granulocytes # (auto) 0.03 K/uL (0.00-0.02); Immature Granulocytes % (auto) 0.6 %; Lymphocytes # (auto) 0.88 K/uL (1.2-3.4); Lymphocytes % (auto) 17.9 %; Mean Corpuscular Hemoglobin 35.8 pg (25-34); Mean Corpuscular Volume 101.8 fL (80-100); Mean Platelet Volume 11.3 fL (7.4-10.4); Monocytes # (auto) 0.74 K/uL (0.11-0.59); Neutrophils # (auto) 3.15 K/uL (1.4-6.5); Neutrophils % (auto) 64.1 %; Platelet Count 140 K/uL (130-400); RDW Coefficient of Variation 23.2 % (11.5-14.5); RDW Standard Deviation 68.5 fL (36.4-46.3); Red Blood Count 3.32 M/uL (4.7-6.1); White Blood Count 4.92 K/uL (4.8-10.8)
[2021-01-19 02:51] LABS: Mean Corpuscular Hgb Conc 35.2 g/dL (32-36)
[2021-01-19 03:01] LABS: BUN Creatinine Ratio 23.4 (10-20); Calcium 7.8 mg/dl (8.5-10.1); Creatinine Clr Calc Pharmacy 28.4 ml/min; Est GFR (African American) 34.2 ml/min; Est GFR (Non-African American) 29.5 ml/min; Potassium 3.1 mmol/L (3.5-5.1)
[2021-01-19 03:14] LABS: Anisocytosis Present; Echinocytes 2+; Target Cells 1+
[2021-01-19] MEDS ORDERED: POTASSIUM CHLORIDE CRTAB 20 MEQ TABCR PO STA ×3 (03:53→17:59)
[2021-01-19 05:47] LABS: INR 1.4 (0.9-1.1); Prothrombin Time 13.5 Seconds (9.0-12.0)
[2021-01-19 05:54] LABS: Albumin Level 1.7 gm/dl (3.4-5.0); BUN Creatinine Ratio 23.2 (10-20); Bilirubin Direct 2.5 mg/dl (0-0.2); Calcium 7.5 mg/dl (8.5-10.1); Creatinine Clr Calc Pharmacy 27.9 ml/min; Est GFR (African American) 33.3 ml/min; Est GFR (Non-African American) 28.8 ml/min; Magnesium 1.9 mg/dl (1.8-2.4); Potassium 3.2 mmol/L (3.5-5.1)
[2021-01-19 06:05] LABS: Bilirubin,Total 4.4 mg/dl (0.2-1); Phosphorus 2.7 mg/dl (2.5-4.9); Thyroid Stimulating Hormone 4.68 uIu/ml (0.300-4.500); Total Protein 5.7 gm/dl (6.4-8.2)
[2021-01-19] MEDS ORDERED: MAGNESIUM SULFATE / D5W 1 GM/100 ML BAG IV ONE (08:30)
[2021-01-19] MEDS: APIXABAN 2.5 MG TAB PO SCH ×2 (09:32→20:19)
[2021-01-19] MEDS: POTASSIUM CHLORIDE CRTAB 20 MEQ TABCR PO SCH (09:32)
[2021-01-19] MEDS: FERROUS SULFATE 325 MG TAB PO SCH ×2 (09:32→20:19)
[2021-01-19] MEDS: FLUoxetine HCL 10 MG CAP PO SCH (09:32)
[2021-01-19] MEDS: DOCUSATE SODIUM 100 MG CAP PO SCH ×2 (09:32→20:19)
[2021-01-19] MEDS: PANTOprazole 40 MG TAB PO SCH ×2 (09:32→20:19)
--- NOTE | 2021-01-19 16:56 | Hospitalist Progress Note ---
Date of Service January 19, 2021 Assessment & Plan (1) Acute on chronic diastolic (congestive) heart failure: Plan: Presented with decompensated HFpEF with hepatic congestion and right-sided heart failure Presented with a 20 kg weight gain in the 6 to 7-week. Since he was last admitted to the hospital Appreciate cardiology consultation Has now diuresed net 13 L-put out over 7 L last 24 hours Decrease Lasix down to once daily dosing from twice daily With bilateral pleural effusions on x-ray Hypoxia is now resolved Echocardiogram here with EF 45-50%, positive wall motion abnormalities, mild AI, moderate MR, mild to moderate TR, and mild to moderate RV dysfunction Given protein malnutrition consider albumin only if parenteral diuresis is ineffective -Decrease Lasix to 40 mg IV once daily Continue to follow BMP and replace potassium and magnesium to keep above 4 and 2 respectively -give a total of 80 mEq of p.o. potassium chloride today (2) Sepsis: Plan: Sepsis, POA Pt admitted with hypotension thought to be secondary to cardiogenic shock, did require pressors for some time and now weaned off, but may have been from septic shock from VRE UTI? He did not have leukocytosis or fever though Lactate was elevated at 6 but may have been from shock liver Urine culture shows VRE, and in retrospect has VRE in urine 12/24 and 01/04, resistant to pcn Started daptomycin on 01/17-would continue for 10 days total-last dose to be on 01/26 Maintain Troy catheter for now but will likely discontinue tomorrow once he is more mobile as he is diuresing copious amounts (3) Acute metabolic encephalopathy: Plan: presented with such related to hypoxia, shock liver, CHF, renal failure, possible sepsis, and hypoglycemia now seems much improved, however continues to have some intermittent confusion and is emotionally labile-calls out for his frequently but is easily redirectable Supportive care, continue treating UTI (4) Hypotension: Plan: secondary to acute HFpEF, as well as sepsis as above His reports that his blood pressure typically runs fairly low Possible severe sepsis, POA due to 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, stage 2-3 pressure ulcer of sacrum, pt with good response with pressors now weaned off Continue to hold home metoprolol Giving diuresis as above (5) Shock liver: Plan: LFTs up significantly upon admission and continue to be trending downward INR was 4 on admission and is now down to 1.4 CT abd/pel checked given h/o acute samson status post cholecystectomy earlier this year with lots of adhesions during surgery, need to assess for CBD dilation-negative most likely seems to be hepatic congestion from right sided heart failure Continue to follow LFTs, INR (6) Acute kidney injury: Plan: Acute on chronic kidney disease stage 3- with hyperkalemia on admission-> potassium now improved, Cr remains stable at 2.0 -Avoid nephrotoxins -renally dose meds when appropriate -follow BMP daily while diuresing (7) VRE (vancomycin-resistant Enterococci) infection: Plan: As above, UTI Treating with daptomycin (8) Transaminitis: Plan: Secondary to shock liver Improving (9) Elevated troponin: Plan: demand ischemia and renal failure impacting troponin levels (10) Edema, peripheral: Plan: Improving with diuresis (11) Malnutrition: Plan: Chronic moderate protein malnutrition- nutrition support (12) Atrial fibrillation, permanent: Plan: Atrial flutter and Afib on telemetry here, with SVT on arrival on ECG His blood pressure was limiting the addition of his metoprolol, but blood pressures are improving now -May be able to restart metoprolol tomorrow -INR is trending downward and elevated INR from shock liver does not necessarily anticoagulate him. Nonetheless, INR is down to 1.4 and Eliquis was restarted -Eliquis restarted, however he should be on the lower dose of 2.5 mg p.o. twice daily given age greater than 80 and creatinine greater than 1.5 Continue to monitor on telemetry (13) MSSA bacteremia: Plan: A history of such from previous admission Completed Nafcillin 2GM IV q4 hours course on 01/17, blood culture x4 no growth to date. (14) Chronic bilateral pleural effusions: Plan: stable appearing and slightly improved on last CXR Continue diuresis (15) Hyperkalemia: Plan: Present on admission secondary to acute kidney injury, now resolved (16) Depression: Plan: With labile mood related to critical illness and multiple recent hospitalizations, frustration with being ill and in the hospital Continue home Paxil 10 mg daily Mirtazapine at bedtime Emotional support given Plan: DVT prophylaxis- Eliquis Disposition-continued stay on PCU PT/OT consults ordered-PT recommending acute rehab, OT pending, will likely need rehab placement early next week. Patient's does not want him to go to [facility], and also does not care for [facility] but will have him go there if there is no other choices Admission and Anticipated Discharge Date Admission Date: January 15, 2021 Subjective Pt reports feeling much better. He is noted to yell out for his at times and openly crying and tearful when left alone in the room, but as soon as myself or a nurse comes into the room, he is conversational and oriented, easily redirectable. He denies CP or SOB, he denies nausea or abd pain and is eating full meals. He can't recall if he has had a BM today or not. He is OOB to the chair. Review of Systems Review of Systems: All systems reviewed & are unremarkable except as noted in HPI & below Physical Exam Constitutional: WD/WN, vitals as above Eyes: + scleral abnormality (icterus) Neck: trachea midline, no thyromegaly Respiratory: normal respiratory effort, lungs clear to auscultation Cardiovascular: Rate/Rhythm: regular rate and + irregularly irregular Heart Sounds: no murmur Extremities: + edema (1+ pitting edema to the knees bilaterally) Chest (Breasts): Chest: normal inspection of chest Gastrointestinal (Abdomen): normal bowel sounds, soft, nontender, no hepatosplenomegaly Musculoskeletal: Extremities: extremities normal to inspection; no cyanosis and no clubbing Skin: + jaundice Neurologic: moves all extremities and awake; no focal motor deficits Psychiatric: Orientation: alert, oriented to person, oriented to place and cooperative Lymphatic: no lymphedema Results & Data Results & Data ([facility]) Vital Signs (Past 12 Hours) Vital Signs Temp Pulse Resp BP Pulse Ox 01/19/21 13:25 105 H 16 108/73 93 01/19/21 11:01 101 H 13 96/61 L 91 01/19/21 10:00 18 107/81 93 01/19/21 09:46 36.3 C L 01/19/21 09:45 100 H 16 105/73 92 01/19/21 08:00 99 H Laboratory Results 01/19/21 01/19/21 01/19/21 Range/Units 05:19 05:19 05:19 WBC (4.8-10.8) K/uL RBC (4.7-6.1) M/uL Hgb (14.0-18.0) g/dL Hct (42-52) % MCV (80-100) fL MCH (25-34) pg MCHC (32-36) g/dL RDW Std Deviation (36.4-46.3) fL RDW Coeff of Osito (11.5-14.5) % Plt Count (130-400) K/uL MPV (7.4-10.4) fL Immature Gran % (Auto) % Neut % (Auto) % Lymph % (Auto) % [place] % (Auto) % Eos % (Auto) % Baso % (Auto) % Neut # (Auto) (1.4-6.5) K/uL Lymph # (Auto) (1.2-3.4) K/uL [place] # (Auto) (0.11-0.59) K/uL Eos # (Auto) (0-0.5) K/uL Baso # (Auto) (0-0.2) K/uL Immature Gran # (Auto) (0.00-0.02) K/uL Absolute Nucleated RBC (0-0) K/uL Nucleated RBC % (auto) % Anisocytosis Target Cells Echinocytes PT 13.5 H (9.0-12.0) Seconds INR 1.4 H (0.9-1.1) Sodium 140 (136-145) mmol/L Potassium 3.2 L (3.5-5.1) mmol/L Chloride 103 (98-107) mmol/L Carbon Dioxide 29 (21-32) mmol/L Anion Gap 8.0 (3-11) BUN 47 H (7-18) mg/dl Creatinine 2.01 H (0.6-1.4) mg/dl Est Cr Clr Drug Dosing 27.9 ml/min Est GFR ( Amer) 33.3 ml/min Est GFR (Non-Af Amer) 28.8 ml/min BUN/Creatinine Ratio 23.2 H (10-20) Glucose 119 H (70-99) mg/dl POC Glucose (70-99) mg/dl Calcium 7.5 L (8.5-10.1) mg/dl Phosphorus 2.7 (2.5-4.9) mg/dl Magnesium 1.9 (1.8-2.4) mg/dl Total Bilirubin 4.4 H (0.2-1) mg/dl Direct Bilirubin 2.5 H (0-0.2) mg/dl AST 226 H (15-37) U/L ALT 321 H (12-78) U/L Alkaline Phosphatase 124 H (45-117) U/L Total Protein 5.7 L (6.4-8.2) gm/dl Albumin 1.7 L (3.4-5.0) gm/dl Whole Bld Vitamin B1 Pending TSH 4.680 H (0.300-4.500) uIu/ml 01/19/21 01/19/21 01/19/21 Range/Units 04:44 02:31 02:31 WBC 4.92 (4.8-10.8) K/uL RBC 3.32 L (4.7-6.1) M/uL Hgb 11.9 L (14.0-18.0) g/dL Hct 33.8 L (42-52) % MCV 101.8 H (80-100) fL MCH 35.8 H (25-34) pg MCHC 35.2 (32-36) g/dL RDW Std Deviation 68.5 H (36.4-46.3) fL RDW Coeff of Osito 23.2 H (11.5-14.5) % Plt Count 140 (130-400) K/uL MPV 11.3 H (7.4-10.4) fL Immature Gran % (Auto) 0.6 % Neut % (Auto) 64.1 % Lymph % (Auto) 17.9 % [place] % (Auto) 15.0 % Eos % (Auto) 2.0 % Baso % (Auto) 0.4 % Neut # (Auto) 3.15 (1.4-6.5) K/uL Lymph # (Auto) 0.88 L (1.2-3.4) K/uL [place] # (Auto) 0.74 H (0.11-0.59) K/uL Eos # (Auto) 0.10 (0-0.5) K/uL Baso # (Auto) 0.02 (0-0.2) K/uL Immature Gran # (Auto) 0.03 H (0.00-0.02) K/uL Absolute Nucleated RBC 0.10 H (0-0) K/uL Nucleated RBC % (auto) 2.0 % Anisocytosis Present Target Cells 1+ Echinocytes 2+ PT (9.0-12.0) Seconds INR (0.9-1.1) Sodium 139 (136-145) mmol/L Potassium 3.1 L (3.5-5.1) mmol/L Chloride 102 (98-107) mmol/L Carbon Dioxide 29 (21-32) mmol/L Anion Gap 8.0 (3-11) BUN 46 H (7-18) mg/dl Creatinine 1.97 H (0.6-1.4) mg/dl Est Cr Clr Drug Dosing 28.4 ml/min Est GFR ( Amer) 34.2 ml/min Est GFR (Non-Af Amer) 29.5 ml/min BUN/Creatinine Ratio 23.4 H (10-20) Glucose 109 H (70-99) mg/dl POC Glucose 125 H (70-99) mg/dl Calcium 7.8 L (8.5-10.1) mg/dl Phosphorus (2.5-4.9) mg/dl Magnesium (1.8-2.4) mg/dl Total Bilirubin (0.2-1) mg/dl Direct Bilirubin (0-0.2) mg/dl AST (15-37) U/L ALT (12-78) U/L Alkaline Phosphatase (45-117) U/L Total Protein (6.4-8.2) gm/dl Albumin (3.4-5.0) gm/dl Whole Bld Vitamin B1 TSH (0.300-4.500) uIu/ml 01/19/21 01/18/21 01/18/21 Range/Units 02:00 20:08 19:05 WBC (4.8-10.8) K/uL RBC (4.7-6.1) M/uL Hgb (14.0-18.0) g/dL Hct (42-52) % MCV (80-100) fL MCH (25-34) pg MCHC (32-36) g/dL RDW Std Deviation (36.4-46.3) fL RDW Coeff of Osito (11.5-14.5) % Plt Count (130-400) K/uL MPV (7.4-10.4) fL Immature Gran % (Auto) % Neut % (Auto) % Lymph % (Auto) % [place] % (Auto) % Eos % (Auto) % Baso % (Auto) % Neut # (Auto) (1.4-6.5) K/uL Lymph # (Auto) (1.2-3.4) K/uL [place] # (Auto) (0.11-0.59) K/uL Eos # (Auto) (0-0.5) K/uL Baso # (Auto) (0-0.2) K/uL Immature Gran # (Auto) (0.00-0.02) K/uL Absolute Nucleated RBC (0-0) K/uL Nucleated RBC % (auto) % Anisocytosis Target Cells Echinocytes PT (9.0-12.0) Seconds INR (0.9-1.1) Sodium 139 (136-145) mmol/L Potassium 3.0 L (3.5-5.1) mmol/L Chloride 101 (98-107) mmol/L Carbon Dioxide 29 (21-32) mmol/L Anion Gap 9.0 (3-11) BUN 47 H (7-18) mg/dl Creatinine 2.01 H (0.6-1.4) mg/dl Est Cr Clr Drug Dosing 27.9 ml/min Est GFR ( Amer) 33.3 ml/min Est GFR (Non-Af Amer) 28.8 ml/min BUN/Creatinine Ratio 23.2 H (10-20) Glucose 111 H (70-99) mg/dl POC Glucose 99 125 H (70-99) mg/dl Calcium 8.1 L (8.5-10.1) mg/dl Phosphorus (2.5-4.9) mg/dl Magnesium 1.9 (1.8-2.4) mg/dl Total Bilirubin (0.2-1) mg/dl Direct Bilirubin (0-0.2) mg/dl AST (15-37) U/L ALT (12-78) U/L Alkaline Phosphatase (45-117) U/L Total Protein (6.4-8.2) gm/dl Albumin (3.4-5.0) gm/dl Whole Bld Vitamin B1 TSH (0.300-4.500) uIu/ml PG Care Time/CCT Total # of Minutes Spent Total Time Spent with Patient: Total time spent is greater than 50% in coordination of care (as documented) at patient's floor/unit and/or counseling patient: Coding Level of Care Code 13648 Subseq Hosp Care Lvl 3 Diagnoses Acute on chronic diastolic (congestive) heart failure I50.33 Sepsis A41.9 Acute metabolic encephalopathy G93.41 Hypotension I95.9 Shock liver K72.00 Acute kidney injury N17.9 VRE (vancomycin-resistant Enterococci) infection A49.1; Z16.21 Transaminitis R74.01 Elevated troponin R77.8 Edema, peripheral R60.9 Malnutrition E46 Atrial fibrillation, permanent I48.21 MSSA bacteremia R78.81; B95.61 Chronic bilateral pleural effusions J90 Hyperkalemia E87.5 Depression F32.9
[2021-01-19] MEDS ORDERED: FUROSEMIDE 40 MG in SYRINGE 0 ML IV ONE (17:13)
[2021-01-19] MEDS ORDERED: FUROSEMIDE 40 MG/4 ML VIAL IV ONE (17:30)
[2021-01-19] MEDS: MELATONIN 3 MG TAB PO SCH (20:18)
[2021-01-19] MEDS: DAPTOmycin 475 MG in SYRINGE 0 ML IV SCH (20:19)
[2021-01-19] MEDS: MIRTAZAPINE TAB 15 MG TAB PO SCH (20:19)
[2021-01-20 06:04] LABS: Albumin Level 1.8 gm/dl (3.4-5.0); BUN Creatinine Ratio 30.4 (10-20); Bilirubin Direct 2.8 mg/dl (0-0.2); Bilirubin,Total 5.1 mg/dl (0.2-1); Creatinine Clr Calc Pharmacy 38.1 ml/min; Est GFR (African American) 48.7 ml/min; Phosphorus 2.2 mg/dl (2.5-4.9); Potassium 3.8 mmol/L (3.5-5.1); Total Protein 6.2 gm/dl (6.4-8.2)
[2021-01-20] MEDS: PANTOprazole 40 MG TAB PO SCH ×2 (08:17→21:19)
[2021-01-20] MEDS: FERROUS SULFATE 325 MG TAB PO SCH ×2 (08:18→21:19)
[2021-01-20] MEDS: POTASSIUM CHLORIDE CRTAB 20 MEQ TABCR PO SCH (08:18)
[2021-01-20] MEDS: APIXABAN 2.5 MG TAB PO SCH ×2 (08:18→21:19)
[2021-01-20] MEDS: DOCUSATE SODIUM 100 MG CAP PO SCH ×2 (08:18→21:21)
[2021-01-20] MEDS: FLUoxetine HCL 10 MG CAP PO SCH (08:18)
[2021-01-20] MEDS ORDERED: POTASSIUM PHOS 3 MMOL/1 ML INFUSION IV STA (08:21)
[2021-01-20] MEDS ORDERED: FUROSEMIDE 40 MG in SYRINGE 0 ML IV ONE (08:21)
[2021-01-20] MEDS ORDERED: DICLOFENAC SOD 1% GEL 100 GM TUBE EXT PRN (08:29)
[2021-01-20] MEDS ORDERED: FUROSEMIDE 40 MG/4 ML VIAL IV ONE (08:30)
[2021-01-20] MEDS ORDERED: POTASSIUM PHOSPHATE 9 MMOL in SODIUM CHLORIDE 0.9% 250 ML IV ONE (09:00)
[2021-01-20] MEDS: ACETAMINOPHEN 325 MG TAB PO PRN ×2 (09:44→18:06)
[2021-01-20] MEDS: MIRTAZAPINE TAB 15 MG TAB PO SCH (21:19)
[2021-01-20] MEDS: MELATONIN 3 MG TAB PO SCH (21:21)
--- NOTE | 2021-01-20 22:28 | Hospitalist Progress Note ---
Date of Service January 20, 2021 Assessment & Plan (1) Acute on chronic diastolic (congestive) heart failure: Plan: Presented with decompensated HFpEF with hepatic congestion and right-sided heart failure Presented with a 20 kg weight gain in the last 6 to 7-week since discharge from previous hospitalization. It is unclear how he gained so much fluid weight in such a short amount of time Appreciate cardiology consultation Has now diuresed net -19.9 L in 5 days He was diuresing so quickly that the Lasix dose was decreased to once daily on 01/18 With bilateral pleural effusions on x-ray upon admission Hypoxia is now resolved Continues to have peripheral lower extremity edema, but overall is significantly improved Echocardiogram here with EF 45-50%, positive wall motion abnormalities, mild AI, moderate MR, mild to moderate TR, and mild to moderate RV dysfunction -Continue Lasix 40 mg IV once daily -Continue to follow BMP and replace potassium and magnesium to keep above 4 and 2 respectively -give 40 mEq of p.o. potassium chloride today -Will place a referral to the CHF clinic for close monitoring after discharge -Daily weights, strict I's and O's, no need for fluid restriction at this point (2) Sepsis: Plan: Sepsis, POA Pt admitted with hypotension thought to be secondary to cardiogenic shock, did require pressors for some time and now weaned off, but may have been from septic shock from VRE UTI? He did not have leukocytosis or fever though Lactate was elevated at 6 but may have been from shock liver Urine culture shows VRE, and in retrospect has VRE in urine 12/24 and 01/04 that was not treated previously (he was on nafcillin for MSSA bacteremia but his VRE is resistant to penicillin)-pharmacist determined that the VRE was not treated during previous admission due to thought that it was asymptomatic bacteriuria Started daptomycin on 01/17-would continue for 10 days total-last dose to be on 01/26 Maintain Troy catheter for now but will likely discontinue tomorrow once he is more mobile as he is continuing to diurese copious amounts (3) Acute metabolic encephalopathy: Plan: presented with such related to hypoxia, shock liver, CHF, renal failure, possible sepsis, and hypoglycemia now seems much improved, however continues to have some intermittent confusion and is emotionally labile-calls out for his frequently but is easily redirectable-even this is much improved on 01/20 Supportive care, continue treating UTI Check vitamin B1 level-still pending (4) Hypotension: Plan: Secondary to sepsis as above His reports that his blood pressure typically runs fairly low Possible severe sepsis, POA due to 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, stage 2-3 pressure ulcer of sacrum, pt with good response with pressors now weaned off Okay to restart home metoprolol succinate 12.5 mg p.o. twice daily tomorrow Giving diuresis as above (5) Shock liver: Plan: LFTs up significantly upon admission and continue to be trending downward INR was 4 on admission and is now down to 1.4 Total bilirubin remains at 5.1, but AST, ALT, and alkaline phosphatase continue to be trending downward CT abd/pel checked given h/o acute samson status post cholecystectomy earlier this year with lots of adhesions during surgery, need to assess for CBD dilation-negative most likely secondary to hepatic congestion from right sided heart failure Continue to follow LFTs, INR (6) Acute kidney injury: Plan: Acute on chronic kidney disease stage 3- with hyperkalemia on admission-> potassium now improved, Cr greatly improved with continued diuresis down to 1.47 today -Avoid nephrotoxins -renally dose meds when appropriate -follow BMP daily while diuresing (7) VRE (vancomycin-resistant Enterococci) infection: Plan: As above, UTI Treating with daptomycin (8) Transaminitis: Plan: Secondary to shock liver Improving (9) Elevated troponin: Plan: demand ischemia and renal failure impacting troponin levels (10) Edema, peripheral: Plan: Improving with diuresis Has chronic venous stasis changes with chronic erythema (11) Malnutrition: Plan: Chronic moderate protein malnutrition- nutrition support Albumin is improving (12) Atrial fibrillation, permanent: Plan: Atrial flutter and Afib on telemetry here, with SVT on arrival on ECG His blood pressure was limiting the addition of his metoprolol, but blood pressures are improving now Rates are mildly tachycardic -Restart home metoprolol tomorrow -INR is trending downward and elevated INR from shock liver does not necessarily anticoagulate him. Nonetheless, INR is down to 1.4 and Eliquis was restarted -Eliquis restarted, however he should be on the lower dose of 2.5 mg p.o. twice daily given age greater than 80 and creatinine greater than 1.5 Continue to monitor on telemetry (13) MSSA bacteremia: Plan: A history of such from previous admission Completed Nafcillin 2GM IV q4 hours course on 01/17, blood culture x4 no growth to date. (14) Chronic bilateral pleural effusions: Plan: stable appearing and slightly improved on last CXR Continue diuresis (15) Hyperkalemia: Plan: Present on admission secondary to acute kidney injury, now resolved (16) Depression: Plan: With labile mood related to critical illness and multiple recent hospitalizations, frustration with being ill and in the hospital Continue home Paxil 10 mg daily Mirtazapine at bedtime Emotional support given Plan: DVT prophylaxis- Eliquis Disposition-continued stay on PCU PT/OT consults ordered-PT recommending acute rehab, OT pending, will likely need rehab placement early next week as long as continuing to improve daily. Patient's does not want him to go to [facility], and also does not care for [facility] but will have him go there if there is no other choices Admission and Anticipated Discharge Date Admission Date: January 15, 2021 Subjective Patient doing very well today. He denies any chest pain or shortness of breath, no abdominal pains. He cannot remember if he is moving his bowels. Nursing reports that he had a good day and is not yelling out or having emotional lability as much. Review of Systems Review of Systems: All systems reviewed & are unremarkable except as noted in HPI & below Physical Exam Constitutional: WD/WN, vitals as above Eyes: + scleral abnormality (icterus) Neck: trachea midline, no thyromegaly Respiratory: normal respiratory effort, lungs clear to auscultation Cardiovascular: Rate/Rhythm: regular rate and + irregularly irregular Heart Sounds: no murmur Extremities: + edema (1+ pitting edema to the knees bilaterally) Chest (Breasts): Chest: normal inspection of chest Gastrointestinal (Abdomen): normal bowel sounds, soft, nontender, no hepatosplenomegaly Musculoskeletal: Extremities: extremities normal to inspection; no cyanosis and no clubbing Skin: + jaundice and + erythema (Chronic erythema of the legs bilaterally) Neurologic: moves all extremities and awake; no focal motor deficits Psychiatric: Orientation: alert, oriented to person, oriented to place and cooperative Affect: euthymic affect Genitourinary: Troy catheter in place draining clear yellow urine Results & Data Results & Data ([facility]) Vital Signs (Past 12 Hours) Vital Signs Temp Pulse Pulse Pulse Resp BP Pulse Ox 01/20/21 19:19 36.3 C L 99 H 22 118/76 96 01/20/21 16:04 36.4 C L 104 H 16 108/72 97 01/20/21 16:00 114 H 01/20/21 11:34 36.4 C L 101 H 101 H 114/76 95 Laboratory Results 01/20/21 01/20/21 01/20/21 Range/Units 07:30 06:23 05:04 Sodium 141 (136-145) mmol/L Potassium 3.8 D (3.5-5.1) mmol/L Chloride 106 (98-107) mmol/L Carbon Dioxide 27 (21-32) mmol/L Anion Gap 8.0 (3-11) BUN 45 H (7-18) mg/dl Creatinine 1.47 H D (0.6-1.4) mg/dl Est Cr Clr Drug Dosing 38.1 ml/min Est GFR ( Amer) 48.7 ml/min Est GFR (Non-Af Amer) 42.0 ml/min BUN/Creatinine Ratio 30.4 H (10-20) Glucose 94 (70-99) mg/dl POC Glucose 117 H 86 (70-99) mg/dl Calcium 8.0 L (8.5-10.1) mg/dl Phosphorus 2.2 L (2.5-4.9) mg/dl Magnesium 2.0 (1.8-2.4) mg/dl Total Bilirubin 5.1 H (0.2-1) mg/dl Direct Bilirubin 2.8 H (0-0.2) mg/dl AST 176 H (15-37) U/L ALT 271 H (12-78) U/L Alkaline Phosphatase 121 H (45-117) U/L Total Protein 6.2 L (6.4-8.2) gm/dl Albumin 1.8 L (3.4-5.0) gm/dl 01/20/21 Range/Units 00:03 Sodium (136-145) mmol/L Potassium (3.5-5.1) mmol/L Chloride (98-107) mmol/L Carbon Dioxide (21-32) mmol/L Anion Gap (3-11) BUN (7-18) mg/dl Creatinine (0.6-1.4) mg/dl Est Cr Clr Drug Dosing ml/min Est GFR ( Amer) ml/min Est GFR (Non-Af Amer) ml/min BUN/Creatinine Ratio (10-20) Glucose (70-99) mg/dl POC Glucose 117 H (70-99) mg/dl Calcium (8.5-10.1) mg/dl Phosphorus (2.5-4.9) mg/dl Magnesium (1.8-2.4) mg/dl Total Bilirubin (0.2-1) mg/dl Direct Bilirubin (0-0.2) mg/dl AST (15-37) U/L ALT (12-78) U/L Alkaline Phosphatase (45-117) U/L Total Protein (6.4-8.2) gm/dl Albumin (3.4-5.0) gm/dl PG Care Time/CCT Total # of Minutes Spent Total Time Spent with Patient: Total time spent is greater than 50% in coordination of care (as documented) at patient's floor/unit and/or counseling patient: Coding Level of Care Code 44628 Subseq Hosp Care Lvl 3 Diagnoses Acute on chronic diastolic (congestive) heart failure I50.33 Sepsis A41.9 Acute metabolic encephalopathy G93.41 Hypotension I95.9 Shock liver K72.00 Acute kidney injury N17.9 VRE (vancomycin-resistant Enterococci) infection A49.1; Z16.21 Transaminitis R74.01 Elevated troponin R77.8 Edema, peripheral R60.9 Malnutrition E46 Atrial fibrillation, permanent I48.21 MSSA bacteremia R78.81; B95.61 Chronic bilateral pleural effusions J90 Hyperkalemia E87.5 Depression F32.9
[2021-01-20] MEDS ORDERED: CALCIUM CARBONATE 500 MG CHEWABLE TAB PO PRN (23:35)
[2021-01-20] MEDS ORDERED: CALCIUM CARBONATE 500 MG CHEWABLE TAB ONE (23:40)
[2021-01-21 05:54] LABS: Basophils # (auto) 0.04 K/uL (0-0.2); Basophils % (auto) 0.7 %; Eosinophils # (auto) 0.13 K/uL (0-0.5); Eosinophils % (auto) 2.1 %; Hematocrit (blood only) 31.2 % (42-52); Hemoglobin 10.8 g/dL (14.0-18.0); Immature Granulocytes # (auto) 0.04 K/uL (0.00-0.02); Immature Granulocytes % (auto) 0.7 %; Lymphocytes # (auto) 1.32 K/uL (1.2-3.4); Lymphocytes % (auto) 21.7 %; Mean Corpuscular Hemoglobin 35.2 pg (25-34); Mean Corpuscular Hgb Conc 34.6 g/dL (32-36); Mean Corpuscular Volume 101.6 fL (80-100); Mean Platelet Volume 11.6 fL (7.4-10.4); Monocytes # (auto) 0.89 K/uL (0.11-0.59); Monocytes % (auto) 14.7 %; Neutrophils # (auto) 3.65 K/uL (1.4-6.5); Neutrophils % (auto) 60.1 %; Platelet Count 121 K/uL (130-400); RDW Coefficient of Variation 21.9 % (11.5-14.5); RDW Standard Deviation 70.2 fL (36.4-46.3); Red Blood Count 3.07 M/uL (4.7-6.1); White Blood Count 6.07 K/uL (4.8-10.8)
[2021-01-21 06:05] LABS: INR 1.2 (0.9-1.1); Prothrombin Time 11.9 Seconds (9.0-12.0)
[2021-01-21 06:31] LABS: Albumin Level 1.7 gm/dl (3.4-5.0); BUN Creatinine Ratio 32.1 (10-20); Bilirubin Direct 3.1 mg/dl (0-0.2); Creatinine Clr Calc Pharmacy 40.9 ml/min; Est GFR (Non-African American) 45.7 ml/min; Magnesium 1.8 mg/dl (1.8-2.4); Potassium 3.5 mmol/L (3.5-5.1)
[2021-01-21 06:34] LABS: Bilirubin,Total 5.3 mg/dl (0.2-1); Phosphorus 2.2 mg/dl (2.5-4.9); Total Protein 6.1 gm/dl (6.4-8.2)
[2021-01-21 07:07] LABS: Anisocytosis Present; Schistocytes Occasional; Target Cells 1+
[2021-01-21] MEDS: METOPROLOL SUCC 25MG EXT REL TAB PO SCH ×2 (08:21→21:22)
[2021-01-21] MEDS: PANTOprazole 40 MG TAB PO SCH ×2 (08:21→21:20)
[2021-01-21] MEDS: APIXABAN 2.5 MG TAB PO SCH ×2 (08:21→21:20)
[2021-01-21] MEDS: FERROUS SULFATE 325 MG TAB PO SCH ×2 (08:21→21:21)
[2021-01-21] MEDS: FLUoxetine HCL 10 MG CAP PO SCH (08:21)
[2021-01-21] MEDS: FUROSEMIDE 40 MG in SYRINGE 0 ML IV SCH (08:21)
--- NOTE | 2021-01-21 08:21 | Hospitalist Progress Note ---
Date of Service January 21, 2021 Assessment & Plan (1) Acute on chronic diastolic (congestive) heart failure: Plan: Presented with decompensated HFpEF with hepatic congestion and right-sided heart failure Presented with a 20 kg weight gain in the last 6 to 7-week since discharge from previous hospitalization. It is unclear how he gained so much fluid weight in such a short amount of time Appreciate cardiology consultation Continues to diurese approximately 3 L net daily. He was diuresing so quickly that the Lasix dose was decreased to once daily on 01/18 With bilateral pleural effusions on x-ray upon admission Hypoxia is now resolved Continues to have peripheral lower extremity edema, but overall is significantly improved Echocardiogram here with EF 45-50%, positive wall motion abnormalities, mild AI, moderate MR, mild to moderate TR, and mild to moderate RV dysfunction -Continue Lasix 40 mg IV once daily -Continue to follow BMP and replace potassium and magnesium to keep above 4 and 2 respectively -Will place a referral to the CHF clinic for close monitoring after discharge -Daily weights, strict I's and O's, no need for fluid restriction at this point (2) Sepsis: Plan: Sepsis, POA Pt admitted with hypotension thought to be secondary to cardiogenic shock, did require pressors for some time and now weaned off, but may have been from septic shock from VRE UTI? He did not have leukocytosis or fever though Lactate was elevated at 6 but may have been from shock liver Urine culture shows VRE, and in retrospect has VRE in urine 12/24 and 01/04 that was not treated previously (he was on nafcillin for MSSA bacteremia but his VRE is resistant to penicillin)-pharmacist determined that the VRE was not treated during previous admission due to thought that it was asymptomatic bacteriuria Started daptomycin on 01/17-would continue for 10 days total-last dose to be on 01/26 Maintain Troy catheter for now but will likely discontinue tomorrow once he is more mobile as he is continuing to diurese copious amounts (3) Acute metabolic encephalopathy: Plan: presented with such related to hypoxia, shock liver, CHF, renal failure, possible sepsis, and hypoglycemia now seems much improved, however continues to have some intermittent confusion and is emotionally labile-calls out for his frequently but is easily redirectable-even this is much improved on 01/20 Supportive care, continue treating UTI Check vitamin B1 level-still pending (4) Hypotension: Plan: Secondary to sepsis as above His reports that his blood pressure typically runs fairly low Possible severe sepsis, POA due to 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 BID Giving diuresis as above (5) Shock liver: Plan: LFTs up significantly upon admission and continue to be trending downward INR was 4 on admission and is now down to 1.4 LFTs remain elevated but trending down. CT abd/pel checked given h/o acute samson status post cholecystectomy earlier this year with lots of adhesions during surgery, need to assess for CBD dilatio n-negative most likely secondary to hepatic congestion from right sided heart failure Continue to follow LFTs, INR (6) Acute kidney injury: Plan: Acute on chronic kidney disease stage 3- with hyperkalemia on admission-> potassium now improved, Cr greatly improved with continued diuresis down to 1.37 today -Avoid nephrotoxins -renally dose meds when appropriate -follow BMP daily while diuresing (7) VRE (vancomycin-resistant Enterococci) infection: Plan: As above, UTI Treating with daptomycin (8) Transaminitis: Plan: Secondary to shock liver Improving (9) Elevated troponin: Plan: demand ischemia and renal failure impacting troponin levels (10) Edema, peripheral: Plan: Improving with diuresis Has chronic venous stasis changes with chronic erythema (11) Malnutrition: Plan: Chronic moderate protein malnutrition- nutrition support Albumin is improving (12) Atrial fibrillation, permanent: Plan: Atrial flutter and Afib on telemetry here, with SVT on arrival on ECG His blood pressure was limiting the addition of his metoprolol, but blood pressures are improving now Rates are mildly tachycardic -Restarted home metoprolol -INR is trending downward and elevated INR from shock liver does not necessarily anticoagulate him. Nonetheless, INR is down to 1.2 and Eliquis was restarted -Eliquis restarted, however he should be on the lower dose of 2.5 mg p.o. twice daily given age greater than 80 and borderline Cr, if Cr continues to improve will increase this Continue to monitor on telemetry (13) MSSA bacteremia: Plan: A history of such from previous admission Completed Nafcillin 2GM IV q4 hours course on 01/17, blood culture x4 no growth to date. (14) Chronic bilateral pleural effusions: Plan: stable appearing and slightly improved on last CXR Continue diuresis (15) Hyperkalemia: Plan: Present on admission secondary to acute kidney injury, now resolved (16) Depression: Plan: With labile mood related to critical illness and multiple recent hospitalizations, frustration with being ill and in the hospital Continue home Paxil 10 mg daily Mirtazapine at bedtime Emotional support given Plan: DVT prophylaxis- Eliquis Disposition-stable for transfer to med/tele, continued inpatient stay due to continued diuresis without bump in Cr yet. Recommend rehab on discharge. Patient's does not want him to go to [facility], and also does not care for [facility] but will have him go there if there is no other choices Admission and Anticipated Discharge Date Admission Date: January 15, 2021 Subjective Feels generally well today. No shortness of breath on lying down. No chest pain. No urinary complaints. Troy catheter in place. Review of Systems Review of Systems: All systems reviewed & are unremarkable except as noted in HPI & below Physical Exam Constitutional: WD/WN, vitals as above Eyes: + scleral abnormality (icterus) Neck: trachea midline, no thyromegaly Respiratory: normal respiratory effort, lungs clear to auscultation Cardiovascular: Rate/Rhythm: + tachycardic and + irregularly irregular Heart Sounds: no murmur Extremities: + edema (1+ pitting edema to the knees bilaterally) Chest (Breasts): Chest: normal inspection of chest Gastrointestinal (Abdomen): normal bowel sounds, soft, nontender, no hepatosplenomegaly Musculoskeletal: Extremities: extremities normal to inspection; no cyanosis and no clubbing Skin: + jaundice and + erythema (Chronic erythema of the legs bilaterally) Neurologic: moves all extremities and awake; no focal motor deficits Psychiatric: Orientation: alert, oriented to person, oriented to place and cooperative Affect: euthymic affect Genitourinary: Troy catheter in place draining clear yellow urine Results & Data Results & Data ([facility]) Vital Signs (Past 12 Hours) Vital Signs Temp Pulse Pulse Resp BP Pulse Ox 01/21/21 07:45 36.8 C 100 H 20 121/69 98 09/13/21 03:51 36.7 C 104 H 16 114/79 98 01/20/21 22:45 36.7 C 111 H 21 115/82 97 PG Care Time/CCT Total # of Minutes Spent Total Time Spent with Patient: Total time spent is greater than 50% in coordination of care (as documented) at patient's floor/unit and/or counseling patient: Coding Level of Care Code 05336 Subseq Hosp Care Lvl 2 Diagnoses Acute on chronic diastolic (congestive) heart failure I50.33 Sepsis A41.9 Acute metabolic encephalopathy G93.41 Hypotension I95.9 Shock liver K72.00 Acute kidney injury N17.9 VRE (vancomycin-resistant Enterococci) infection A49.1; Z16.21 Transaminitis R74.01 Elevated troponin R77.8 Edema, peripheral R60.9 Malnutrition E46 Atrial fibrillation, permanent I48.21 MSSA bacteremia R78.81; B95.61 Chronic bilateral pleural effusions J90 Hyperkalemia E87.5 Depression F32.9
[2021-01-21] MEDS: POTASSIUM CHLORIDE CRTAB 20 MEQ TABCR PO SCH (08:25)
[2021-01-21] MEDS: DOCUSATE SODIUM 100 MG CAP PO SCH ×2 (08:25→21:20)
[2021-01-21] MEDS: DAPTOmycin 475 MG in SYRINGE 0 ML IV SCH (15:52)
[2021-01-21] MEDS: MIRTAZAPINE TAB 15 MG TAB PO SCH (21:19)
[2021-01-21] MEDS: MELATONIN 3 MG TAB PO SCH (21:19)
[2021-01-22 08:27] LABS: BUN Creatinine Ratio 33.8 (10-20); Calcium 8.3 mg/dl (8.5-10.1); Creatinine Clr Calc Pharmacy 44.8 ml/min; Est GFR (African American) 59.2 ml/min; Est GFR (Non-African American) 51.1 ml/min; Magnesium 1.9 mg/dl (1.8-2.4); Phosphorus 2.1 mg/dl (2.5-4.9); Potassium 3.2 mmol/L (3.5-5.1)
[2021-01-22] MEDS ORDERED: POTASSIUM CHLORIDE CRTAB 20 MEQ TABCR PO STA (08:53)
[2021-01-22] MEDS: FUROSEMIDE 40 MG in SYRINGE 0 ML IV SCH (09:02)
[2021-01-22] MEDS: APIXABAN 2.5 MG TAB PO SCH ×2 (09:02→20:07)
[2021-01-22] MEDS: FLUoxetine HCL 10 MG CAP PO SCH (09:03)
[2021-01-22] MEDS: PANTOprazole 40 MG TAB PO SCH ×2 (09:03→20:07)
[2021-01-22] MEDS: METOPROLOL SUCC 25MG EXT REL TAB PO SCH ×3 (09:03→20:08)
[2021-01-22] MEDS: FERROUS SULFATE 325 MG TAB PO SCH ×2 (09:04→20:07)
[2021-01-22] MEDS: POTASSIUM CHLORIDE CRTAB 20 MEQ TABCR PO SCH (09:04)
[2021-01-22] MEDS: DOCUSATE SODIUM 100 MG CAP PO SCH ×2 (13:17→20:07)
[2021-01-22] MEDS: DAPTOmycin 475 MG in SYRINGE 0 ML IV SCH (15:44)
--- NOTE | 2021-01-22 16:50 | Hospitalist Progress Note ---
Date of Service January 22, 2021 Assessment & Plan (1) Acute on chronic diastolic (congestive) heart failure: Plan: Presented with decompensated HFpEF with hepatic congestion and right-sided heart failure Presented with a 20 kg weight gain in the last 6 to 7-week since discharge from previous hospitalization. It is unclear how he gained so much fluid weight in such a short amount of time Appreciate cardiology consultation Continues to diurese approximately 3 L net daily. He was diuresing so quickly that the Lasix dose was decreased to once daily on 01/18 With bilateral pleural effusions on x-ray upon admission Hypoxia is now resolved Continues to have peripheral lower extremity edema, but overall is significantly improved Echocardiogram here with EF 45-50%, positive wall motion abnormalities, mild AI, moderate MR, mild to moderate TR, and mild to moderate RV dysfunction -Continue Lasix 40 mg IV once daily as Cr continues to improve -Continue to follow BMP and replace potassium and magnesium to keep above 4 and 2 respectively -Will place a referral to the CHF clinic for close monitoring after discharge -Daily weights, strict I's and O's, no need for fluid restriction at this point (2) Sepsis: Plan: Sepsis, POA Pt admitted with hypotension thought to be secondary to cardiogenic shock, did require pressors for some time and now weaned off, but may have been from septic shock from VRE UTI? He did not have leukocytosis or fever though Lactate was elevated at 6 but may have been from shock liver Urine culture shows VRE, and in retrospect has VRE in urine 12/24 and 01/04 that was not treated previously (he was on nafcillin for MSSA bacteremia but his VRE is resistant to penicillin)-pharmacist determined that the VRE was not treated during previous admission due to thought that it was asymptomatic bacteriuria Started daptomycin on 01/17-would continue for 10 days total-last dose to be on 01/26 Discontinue rayo catheter (3) Acute metabolic encephalopathy: Plan: presented with such related to hypoxia, shock liver, CHF, renal failure, possible sepsis, and hypoglycemia now seems much improved, however continues to have some intermittent confusion and is emotionally labile-calls out for his frequently but is easily redirectable-even this is much improved on 01/20 Supportive care, continue treating UTI Check vitamin B1 level-still pending (4) Hypotension: Plan: Secondary to sepsis as above His reports that his blood pressure typically runs fairly low Possible severe sepsis, POA due to 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 BID Giving diuresis as above (5) Shock liver: Plan: LFTs up significantly upon admission and continue to be trending downward INR was 4 on admission and is now down to 1.4 LFTs remain elevated but trending down. CT abd/pel checked given h/o acute samson status post cholecystectomy earlier this year with lots of adhesions during surgery, need to assess for CBD dilation-negative most likely secondary to hepatic congestion from right sided heart failure Continue to follow LFTs, INR (6) Acute kidney injury: Plan: Acute on chronic kidney disease stage 3- with hyperkalemia on admission-> potassium now improved, Cr greatly improved with continued diuresis down to 1.37 today -Avoid nephrotoxins -renally dose meds when appropriate -follow BMP daily while diuresing (7) VRE (vancomycin-resistant Enterococci) infection: Plan: As above, UTI Treating with daptomycin (8) Transaminitis: Plan: Secondary to shock liver Improving (9) Elevated troponin: Plan: demand ischemia and renal failure impacting troponin levels (10) Edema, peripheral: Plan: Improving with diuresis Has chronic venous stasis changes with chronic erythema (11) Malnutrition: Plan: Chronic moderate protein malnutrition- nutrition support Albumin is improving (12) Atrial fibrillation, permanent: Plan: Atrial flutter and Afib on telemetry here, with SVT on arrival on ECG His blood pressure was limiting the addition of his metoprolol, but blood pressures are improving now Rates are mildly tachycardic -Restarted home metoprolol -INR is trending downward and elevated INR from shock liver does not necessarily anticoagulate him. Nonetheless, INR is down to 1.2 and Eliquis was restarted -Eliquis restarted, however he should be on the lower dose of 2.5 mg p.o. twice daily given age greater than 80 and borderline Cr, if Cr continues to improve will increase this Continue to monitor on telemetry (13) MSSA bacteremia: Plan: A history of such from previous admission Completed Nafcillin 2GM IV q4 hours course on 01/17, blood culture x4 no growth to date. (14) Chronic bilateral pleural effusions: Plan: stable appearing and slightly improved on last CXR Continue diuresis (15) Hyperkalemia: Plan: Present on admission secondary to acute kidney injury, now resolved (16) Depression: Plan: With labile mood related to critical illness and multiple recent hospitalizations, frustration with being ill and in the hospital Continue home Paxil 10 mg daily Mirtazapine at bedtime Emotional support given Plan: DVT prophylaxis- Eliquis Disposition- continue on med/tele, continued inpatient stay due to continued diuresis without bump in Cr yet. Recommend rehab on discharge. Patient's does not want him to go to [facility], and also does not care for [facility] but will have him go there if there is no other choices Admission and Anticipated Discharge Date Admission Date: January 15, 2021 Subjective Feels generally well today. No shortness of breath on lying down. No chest pain. No urinary complaints. Rayo catheter in place. Still having net negative 3L per day. Review of Systems Review of Systems: All systems reviewed & are unremarkable except as noted in HPI & below Physical Exam Constitutional: WD/WN, vitals as above Eyes: + scleral abnormality (icterus) Neck: trachea midline, no thyromegaly Respiratory: normal respiratory effort, lungs clear to auscultation Cardiovascular: Rate/Rhythm: + tachycardic and + irregularly irregular Heart Sounds: no murmur Extremities: + edema (1+ pitting edema to the knees bilaterally) Chest (Breasts): Chest: normal inspection of chest Gastrointestinal (Abdomen): normal bowel sounds, soft, nontender, no hepatosplenomegaly Musculoskeletal: Extremities: extremities normal to inspection; no cyanosis and no clubbing Skin: + jaundice and + erythema (Chronic erythema of the legs bilaterally) Neurologic: moves all extremities and awake; no focal motor deficits Psychiatric: Orientation: alert, oriented to person, oriented to place and oriented to time Affect: euthymic affect Results & Data Results & Data ([facility]) Vital Signs (Past 12 Hours) Vital Signs Temp Pulse Resp BP Pulse Ox 01/22/21 15:36 36.5 C 101 H 20 100/73 98 01/22/21 11:00 36.5 C 103 H 18 110/72 95 PG Care Time/CCT Total # of Minutes Spent Total Time Spent with Patient: Total time spent is greater than 50% in coordination of care (as documented) at patient's floor/unit and/or counseling patient: Coding Level of Care Code 03652 Subseq Hosp Care Lvl 2 Diagnoses Acute on chronic diastolic (congestive) heart failure I50.33 Sepsis A41.9 Acute metabolic encephalopathy G93.41 Hypotension I95.9 Shock liver K72.00 Acute kidney injury N17.9 VRE (vancomycin-resistant Enterococci) infection A49.1; Z16.21 Transaminitis R74.01 Elevated troponin R77.8 Edema, peripheral R60.9 Malnutrition E46 Atrial fibrillation, permanent I48.21 MSSA bacteremia R78.81; B95.61 Chronic bilateral pleural effusions J90 Hyperkalemia E87.5 Depression F32.9
[2021-01-22] MEDS: MIRTAZAPINE TAB 15 MG TAB PO SCH (20:07)
[2021-01-22] MEDS: MELATONIN 3 MG TAB PO SCH (20:07)
[2021-01-23] MEDS: METOPROLOL SUCC 25MG EXT REL TAB PO SCH (08:14)
[2021-01-23] MEDS: APIXABAN 2.5 MG TAB PO SCH ×2 (08:14→21:19)
[2021-01-23] MEDS: FUROSEMIDE 40 MG in SYRINGE 0 ML IV SCH (08:14)
[2021-01-23] MEDS: DOCUSATE SODIUM 100 MG CAP PO SCH ×2 (08:15→21:19)
[2021-01-23] MEDS: FERROUS SULFATE 325 MG TAB PO SCH ×2 (08:15→21:19)
[2021-01-23] MEDS: PANTOprazole 40 MG TAB PO SCH (08:15)
[2021-01-23] MEDS: FLUoxetine HCL 10 MG CAP PO SCH (08:16)
[2021-01-23] MEDS: POTASSIUM CHLORIDE CRTAB 20 MEQ TABCR PO SCH (08:16)
[2021-01-23 09:18] LABS: BUN Creatinine Ratio 33.4 (10-20); Creatinine Clr Calc Pharmacy 39.2 ml/min; Est GFR (African American) 50.3 ml/min; Est GFR (Non-African American) 43.4 ml/min; Magnesium 2.1 mg/dl (1.8-2.4); Potassium 3.5 mmol/L (3.5-5.1)
[2021-01-23 09:20] LABS: Albumin Globulin Ratio 0.4 (0.9-2); Bilirubin,Total 5.1 mg/dl (0.2-1); Globulin 4.9 gm/dl (2.5-4.0); Phosphorus 2.2 mg/dl (2.5-4.9); Total Protein 6.9 gm/dl (6.4-8.2)
--- NOTE | 2021-01-23 11:31 | Hospitalist Progress Note ---
Date of Service January 23, 2021 Assessment & Plan (1) Acute on chronic diastolic (congestive) heart failure: Plan: Presented with decompensated HFpEF with hepatic congestion and right-sided heart failure Presented with a 20 kg weight gain in the last 6 to 7-week since discharge from previous hospitalization. With hindsight I suspect he had AIN induced renal failure related to nafcillin (previously on for MSSA bacteremic) causing his fluid retention rather than primarily heart failure as this would explain his large diuresis now off nafcillin and minimal diuretics. He may actually require IV fluids in the next few days given his significant diuresis despite on 40mg IV Lasix. At this time he has reached his dry weight and Cr started to bump today. Will switch to Bumex 1mg PO daily but may need to be held if Cr increases again tomorrow. Doubtful VRE in urine is the cause of his admission since this has been present since December 24 and he is not bacteremic but agree with continuing to treat as below.. Echocardiogram here with EF 45-50%, positive wall motion abnormalities, mild AI, moderate MR, mild to moderate TR, and mild to moderate RV dysfunction -Continue Lasix 40 mg IV once daily as Cr continues to improve -Continue to follow BMP and replace potassium and magnesium to keep above 4 and 2 respectively -Will place a referral to the CHF clinic for close monitoring after discharge -Daily weights, strict I's and O's, no need for fluid restriction at this point (2) Acute kidney injury: Plan: As above. With hindsight suspect AIN induced LASHAWN with now post AIN diuresis s econdary to nafcillin. (3) Sepsis: Plan: Sepsis, POA, possible diagnosis although lack of bacteremia makes this less likely Lactate was elevated at 6 but may have been from shock liver Agree with continuing to treat VRE UTI however. Started daptomycin on 01/17-would continue for 10 days total-last dose to be on 01/26 Troy catheter discontinued (4) Acute metabolic encephalopathy: Plan: presented with such related to hypoxia, shock liver, CHF, renal failure, possible sepsis, and hypoglycemia now seems much improved, however continues to have some intermittent confusion and is emotionally labile-calls out for his frequently but is easily redirectable-even this is much improved on 01/20 Supportive care, continue treating UTI Check vitamin B1 level-still pending (5) Hypotension: Plan: Secondary to sepsis as above His reports that his blood pressure typically runs fairly low Possible severe sepsis, POA due to VRE uti that has been present since mid , stage 2-3 pressure ulcer of sacrum, pt with good response with pressors now weaned off Tolerating metoprolol succinate 12.5 mg p.o. BID Giving diuresis as above (6) Shock liver: Plan: LFTs up significantly upon admission and continue to be trending downward INR was 4 on admission and is now down to 1.4 LFTs remain elevated but trending down. CT abd/pel checked given h/o acute samson status post cholecystectomy earlier this year with lots of adhesions during surgery, need to assess for CBD dilation-negative most likely secondary to hepatic congestion from right sided heart failure but given persistent elevated bilirubin will get Liver US to assess for anatomical cause (7) VRE (vancomycin-resistant Enterococci) infection: Plan: As above, UTI Treating with daptomycin (8) Transaminitis: Plan: Secondary to shock liver +/- nafcillin Improving (9) Elevated troponin: Plan: demand ischemia and renal failure impacting troponin levels (10) Edema, peripheral: Plan: Improving with diuresis Has chronic venous stasis changes with chronic erythema (11) Malnutrition: Plan: Chronic moderate protein malnutrition- nutrition support Albumin is improving (12) Atrial fibrillation, permanent: Plan: Atrial flutter and Afib on telemetry here, with SVT on arrival on ECG His blood pressure was limiting the addition of his metoprolol, but blood pressures are improving now Rates are mildly tachycardic -Restarted home metoprolol -INR is trending downward and elevated INR from shock liver does not necessarily anticoagulate him. Nonetheless, INR is down to 1.2 and Eliquis was restarted -Eliquis restarted, however he should be on the lower dose of 2.5 mg p.o. twice daily given age greater than 80 and borderline Cr, if Cr stable <1.5 will increase dose again. Continue to monitor on telemetry (13) MSSA bacteremia: Plan: A history of such from previous admission Completed Nafcillin 2GM IV q4 hours course on 01/17, blood culture x4 no growth to date. (14) Chronic bilateral pleural effusions: Plan: stable appearing and slightly improved on last CXR Continue diuresis (15) Hyperkalemia: Plan: Present on admission secondary to acute kidney injury, now resolved (16) Depression: Plan: With labile mood related to critical illness and multiple recent hospitalizations, frustration with being ill and in the hospital Continue home fluoxetine 10 mg daily Mirtazapine at bedtime Emotional support given Plan: DVT prophylaxis- Eliquis Disposition- medically stable for discharge pending placement Admission and Anticipated Discharge Date Admission Date: January 15, 2021 Subjective Doing well with physical therapy. Continues to be urinating excessively. No abdominal pain, nausea or vomiting. Reports he is eating and drinking well. Records reviewed from last three hospitalizations. Discussed care with family over the phone and they requested palliative care consult given repeated hospitalizations. Review of Systems Review of Systems: All systems reviewed & are unremarkable except as noted in HPI & below Physical Exam Constitutional: WD/WN, vitals as above Eyes: + scleral abnormality (icterus) Neck: trachea midline, no thyromegaly Respiratory: normal respiratory effort, lungs clear to auscultation Cardiovascular: Rate/Rhythm: + tachycardic and + irregularly irregular Heart Sounds: no murmur Extremities: + edema (1+ pitting edema to the knees bilaterally) Chest (Breasts): Chest: normal inspection of chest Gastrointestinal (Abdomen): normal bowel sounds, soft, nontender, no hepatosplenomegaly Musculoskeletal: Extremities: extremities normal to inspection; no cyanosis and no clubbing Skin: + jaundice and + erythema (Chronic erythema of the legs bilaterally) Neurologic: moves all extremities and awake; no focal motor deficits Psychiatric: Orientation: alert, oriented to person, oriented to place and oriented to time Affect: euthymic affect Results & Data Results & Data ([facility]) Vital Signs (Past 12 Hours) Vital Signs Temp Pulse Pulse Resp BP Pulse Ox 01/23/21 06:48 36.6 C 98 H 20 105/78 93 01/23/21 03:53 36.4 C L 110 H 20 91/61 L 98 01/23/21 00:00 110 H 01/22/21 23:41 36.6 C 101 H 20 98/66 L 97 PG Care Time/CCT Total # of Minutes Spent Total Time Spent: 70 Total Time Spent with Patient: Total time spent is greater than 50% in coordination of care (as documented) at patient's floor/unit and/or counseling patient: Coding Level of Care Code 41143 Subseq Hosp Care Lvl 3 Diagnoses Acute on chronic diastolic (congestive) heart failure I50.33 Sepsis A41.9 Acute metabolic encephalopathy G93.41 Hypotension I95.9 Shock liver K72.00 Acute kidney injury N17.9 VRE (vancomycin-resistant Enterococci) infection A49.1; Z16.21 Transaminitis R74.01 Elevated troponin R77.8 Edema, peripheral R60.9 Malnutrition E46 Atrial fibrillation, permanent I48.21 MSSA bacteremia R78.81; B95.61 Chronic bilateral pleural effusions J90 Hyperkalemia E87.5 Depression F32.9
--- NOTE | 2021-01-23 13:11 | Ultrasound Report ---
ABDOMINAL ULTRASOUND, RIGHT UPPER QUADRANT HISTORY: Elevated bilirubin. COMPARISON: None. FINDINGS: Pancreas: The pancreatic head and tail are obscured by overlying bowel gas. The remaining portions of the pancreas are within normal limits. The pancreatic duct appears mildly dilated measuring 5 mm. Liver: Unremarkable. Gallbladder: The gallbladder is surgically absent. CBD: 6 mm Right kidney: No hydronephrosis. Miscellaneous: Small amount of ascites and a right pleural effusion are again noted. IMPRESSION: 1. Small amount of ascites and a right pleural effusion are again noted. 2. Cholecystectomy. 3. Normal liver. 4. Mildly dilated main pancreatic duct measuring 5 mm. Normal caliber common bile duct. ACT 112: Negative or not required by law. Electronically signed by: Garland Prado M.D. 01/23/2021 1:09 PM
[2021-01-23] MEDS: DAPTOmycin 475 MG in SYRINGE 0 ML IV SCH (15:55)
[2021-01-23] MEDS ORDERED: METOPROLOL SUCC 25MG EXT REL TAB PO SCH (21:00)
[2021-01-23] MEDS: MIRTAZAPINE TAB 15 MG TAB PO SCH (21:18)
[2021-01-23] MEDS: MELATONIN 3 MG TAB PO SCH (21:19)
[2021-01-24 07:07] LABS: BUN Creatinine Ratio 33.5 (10-20); Calcium 8.9 mg/dl (8.5-10.1); Creatinine Clr Calc Pharmacy 37.4 ml/min; Est GFR (African American) 47.5 ml/min; Potassium 3.6 mmol/L (3.5-5.1)
[2021-01-24 07:17] LABS: Albumin Globulin Ratio 0.4 (0.9-2); Bilirubin,Total 4.5 mg/dl (0.2-1); Globulin 4.7 gm/dl (2.5-4.0); Total Protein 6.7 gm/dl (6.4-8.2)
[2021-01-24] MEDS: FERROUS SULFATE 325 MG TAB PO SCH ×2 (08:10→20:19)
[2021-01-24] MEDS: PANTOprazole 40 MG TAB PO SCH (08:10)
[2021-01-24] MEDS: APIXABAN 2.5 MG TAB PO SCH ×2 (08:10→20:19)
[2021-01-24] MEDS: FLUoxetine HCL 10 MG CAP PO SCH (08:11)
[2021-01-24] MEDS: POTASSIUM CHLORIDE CRTAB 20 MEQ TABCR PO SCH (08:11)
[2021-01-24] MEDS: METOPROLOL SUCC 25MG EXT REL TAB PO SCH ×2 (08:11→20:19)
[2021-01-24] MEDS: DOCUSATE SODIUM 100 MG CAP PO SCH ×2 (08:12→20:19)
[2021-01-24] MEDS ORDERED: BUMETANIDE 1 MG TAB PO SCH (09:00)
[2021-01-24] MEDS ORDERED: FUROSEMIDE 40 MG TAB PO SCH (09:00)
--- NOTE | 2021-01-24 10:42 | Cardiology Progress Note ---
Date of Service January 24, 2021 Assessment & Plan (1) Right heart failure: (2) Acute on chronic diastolic (congestive) heart failure: Plan: Volume status markedly improved from admission (down 30 pounds), he appeared euvolemic a couple of days ago but now is again becoming mildly hypervolemic (weight increasing, neck veins). Would recommend restarting Bumex 1 mg daily (could be given orally to assess likely efficacy as outpatient) despite minor increase in creatinine today (still below his long-term baseline). Etiology of his recent decompensation uncertain, certainly nafcillin related nephritis, the volume of saline accompanying the nafcillin infusions, and reaching a critical volume load which rendered his threshold based diuretics ineffective, all likely played a role. Of note, he has had difficulty with volume issues prior to receiving nafcillin, so likely ongoing volume management will remain an issue. Agree with referral to heart failure clinic and sliding scale diuretic regimen on discharge. (3) Moderate mitral regurgitation: (4) Atrial flutter with rapid ventricular response: Plan: Continue low-dose metoprolol, will change parameters to allow for administration of metoprolol for systolic blood pressure greater than 90 mmHg (since his baseline BP is 90-110 mmHg). Otherwise, if a dose is held he is likely to become more tachycardic (this had been a significant issue in the past). (5) At risk for change in mental status: Plan: Still with episodes of confusion, therefore not a good candidate to return home. As a friend and clinician long involved in his care, I spoke with his family at length ( and 2 sons) yesterday regarding discharge planning. I told him I defer to the hospitalist/social work/discharge planners regarding particulars, but emphasized that he should not return home and that he remains fragile and at high risk for serious illness in the near term. Discussed the concept of hospice care, they will consider their options. All agree that he should not receive heroic measures such as CPR or ventilator support should he decline in the future. Admission and Anticipated Discharge Date Admission Date: January 15, 2021 Subjective He had some confusion this morning, but is coherent currently and feels well. He denies any complaints whatsoever. No pain, dyspnea, palpitations, or lightheadedness. threat monitoring analyst shows atrial flutter with ventricular response consistently around 100 bpm. Physical Exam Physical Exam: Appears comfortable. Weight up 4 pounds over the past 2 days. I/O even. SBP 90-100 mm Hg (baseline for him) Pulse 100 bpm and regular. Skin: Scattered ecchymoses, no generalized lesions. HEENT: unremarkable. Neck: Jugular venous pulse 1/2 way to angle of the jaw. No carotid bruits. Lungs: Clear. No accessory muscle use. Cardiac: fairly regular rhythm, 3/6 apical holosystolic murmur radiating to the axilla, no diastolic murmur. Abdomen: benign. Extremities: 1+ pretibial edema. Good capillary refill, warm. Neurologic: Upbeat affect, generally normal conversation, mildly confused at times (? location), grossly nonfocal. Results & Data ([facility]) Vital Signs (Past 12 Hours) Vital Signs Temp Pulse Resp BP BP Pulse Ox 01/24/21 06:56 97.3 F L 100 H 20 96/67 L 98 01/24/21 04:38 97.5 F L 101 H 20 99/72 L 95 01/23/21 23:48 97.9 F 106 H 20 90/54 L 94 Laboratory Results Normal electrolytes. BUN 50, creatinine 1.50. PG Care Time/CCT Total # of Minutes Spent Total Time Spent with Patient: Total time spent is greater than 50% in coordination of care (as documented) at patient's floor/unit and/or counseling patient: Coding Level of Care Code 87159 Subseq Hosp Care Lvl 3 Diagnoses Right heart failure I50.810 Acute on chronic diastolic (congestive) heart failure I50.33 Moderate mitral regurgitation I34.0 Atrial flutter with rapid ventricular response I48.92 At risk for change in mental status Z91.89
--- NOTE | 2021-01-24 10:54 | Gastrointestinal Consultation ---
Date of Consultation January 24, 2021 Assessment & Plan (1) Right heart failure: (2) Shock liver: Given clinical history, suspect shock liver in the setting of acute CHF. Liver panel is trending down as follows: TB 4.5, AST 91, ALT 172, and ALP 128. As no abdominal pain or vomiting and improved transaminases, would hold off on MRCP at this time. Could be reconsidered in the future if liver panel were to abruptly worsen. Continue to trend. Avoid known liver toxins. Continue supportive care per primary team and cardiology. Thank you for allowing us to participate in the care of this pleasant patient. If you have any questions or concerns, please do not hesitate to contact us. Supervising Physician Co-Signing Physician Notes I personally evaluated the patient and agree with the findings as documented by BENY Alves Exam: abd: soft, nt, nd History of Present Illness Reason for Consultation: Elevated liver panel Requesting Physician: Dr. Romo Attending Physician: Titus Romo MD History of Present Illness Fran Rhodes is a very pleasant 89 y.o. male with a history of mitral regurgitation and MSSA bacteremia admitted with acute right-sided heart failure. GI has been consulted in regard to elevated liver panel noted initially on 01/19. At that time, liver panel was as follows: TB 4.4, DB 2.5, AST 226, ALT 321, AL 124. The bilirubin peaked at 5.3. He did have a CT and liver ultrasound. Normal caliber of CBD s/p cholecystectomy, mild pancreatic duct dilation of 5 mm but normal liver. Symptomatically, he denies any RUQ pain, n/v, hematemesis, melena, hematochezia or fatigue. +jaundice and dark urine but no pruritus. He has had a positive response to diuresis and is being closely monitored by cardiology with plans for outpatient follow up in the CHF clinic. Allergies Allergy/AdvReac Type Severity Reaction Status Date / Time No Known Allergies Allergy Unknown Verified 01/03/21 14:21 Home Medications Medication Instructions Recorded Confirmed Type allopurinol 300 mg tablet 300 mg PO QAM tab 01/21/19 01/15/21 History apixaban 5 mg tablet (Eliquis) 5 mg PO BID #60 tab 07/26/20 01/15/21 Rx fluoxetine 10 mg capsule (Prozac) 10 mg PO QAM 10/15/20 01/15/21 History docusate sodium 100 mg capsule 100 mg PO BID 11/15/20 01/15/21 History (Colace) mirtazapine 15 mg tablet (Remeron) 15 mg PO QAM 11/15/20 01/15/21 History potassium chloride 20 mEq 20 meq PO TID 12/24/20 01/15/21 History tablet,extended release(part/cryst) (Klor-Con M) ferrous sulfate 325 mg (65 mg 325 mg PO BID 01/15/21 01/15/21 History iron) tablet (Iron (ferrous sulfate)) furosemide 40 mg tablet (Lasix) 40 mg PO QAM 01/15/21 01/15/21 History melatonin 3 mg tablet (Melatin) 3 mg PO HS 01/15/21 01/15/21 History metoprolol succinate 25 mg 12.5 mg PO BID 01/15/21 01/15/21 History tablet,extended release 24 hr (Toprol XL) nitrofurantoin macrocrystal 50 mg 50 mg PO BID 01/15/21 01/15/21 History capsule (Macrodantin) pantoprazole 40 mg tablet,delayed 40 mg PO QAM 01/15/21 01/15/21 History release (Protonix) Patient History Medical History Abdominal ascites Abnormal cystoscopy Acalculous cholecystitis Actinic keratosis Acute CHF (congestive heart failure) Acute respiratory failure with hypoxia Atrial fibrillation with rapid ventricular response (03/2020) Bacteremia Bilateral edema of lower extremity Bilateral nephrolithiasis (2005) Bilateral pleural effusion Bladder cancer (2016) Depression Elevated troponin Per cardiology note 08/05/20: (2) Elevated troponin: -mild elevation likely a supply demand mismatch and not coronary ischemia. 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 -did have elevated heart rate and low blood pressure while in the emergency room. GI bleed Gout Hearing loss Hematuria (2018) History of basal cell carcinoma (2017) Hypercholesteremia Leg edema Male erectile disorder of organic origin Valvular heart disease Vitamin D deficiency Surgical History H/O pyloroplasty H/O shoulder surgery Hx laparoscopic cholecystectomy (08/06/20) Laparoscopic Cholecystectomy with Cholangiogram, Lysis of Adhesions Dr. iGvens 08/06/2020 S/P bladder tumor excision with fulguration (2016) S/P knee surgery Status post ORIF of fracture of ankle Family History Grandfather Cancer Social History Smoking Status: Unknown if ever smoked Age Quit Using Tobacco: 32; Second Hand Exposure: No; Preferred Language: Swedish Communication Ability: Unable Supervisory Forester Required: No Beliefs That Will Affect Care: None marital status: Current Living Situation: Spouse Current Living Situation Comment: lives w/ current occupational status: retired How many Children do You have: 1 Feels Safe at Home: Yes Assistive Devices: Walker Review of Systems Constitutional: + weight loss; no fever and no chills Respiratory: no cough and no dyspnea Cardiovascular: no chest pain and no palpitations Gastrointestinal: as per Subjective / HPI Integumentary: as per Subjective / HPI Physical Exam Constitutional: WD/WN, vitals as above Eyes: + scleral abnormality (bilateral icterus) and EOM intact bilaterally Neck: normal visual inspection and + anterior neck swelling (with abdominal palpation) Respiratory: normal respiratory effort, lungs clear to auscultation Cardiovascular: Rate/Rhythm: regular rate and regular rhythm Heart Sounds: + murmur Gastrointestinal (Abdomen): normal bowel sounds, soft, nontender, no hepatosplenomegaly Musculoskeletal: Extremities: extremities normal to inspection Skin: + jaundice Psychiatric: A+Ox3, euthymic affect Results & Data ([facility]) Vital Signs (Past 12 Hours) Vital Signs Temp Pulse Resp BP BP Pulse Ox 01/24/21 06:56 36.3 C L 100 H 20 96/67 L 98 01/24/21 04:38 36.4 C L 101 H 20 99/72 L 95 01/23/21 23:48 36.6 C 106 H 20 90/54 L 94 Laboratory Results Abnormal lab results 01/24/21 Range/Units 06:02 BUN 50 H (7-18) mg/dl Creatinine 1.50 H (0.6-1.4) mg/dl BUN/Creatinine Ratio 33.5 H (10-20) Glucose 124 H (70-99) mg/dl Total Bilirubin 4.5 H (0.2-1) mg/dl AST 91 H (15-37) U/L ALT 172 H (12-78) U/L Alkaline Phosphatase 128 H (45-117) U/L Albumin 2.0 L (3.4-5.0) gm/dl Globulin 4.7 H (2.5-4.0) gm/dl Albumin/Globulin Ratio 0.4 L (0.9-2) PG Care Time/CCT Total # of Minutes Spent Total Time Spent with Patient: Total time spent is greater than 50% in coordination of care (as documented) at patient's floor/unit and/or counseling patient: Coding Level of Care Code 40223 Initial Inpt Care Lvl 3 Diagnoses Right heart failure I50.810 Shock liver K72.00
--- NOTE | 2021-01-24 13:44 | Hospitalist Progress Note ---
Date of Service January 24, 2021 Assessment & Plan (1) Acute on chronic diastolic (congestive) heart failure: Plan: Presented with decompensated HFpEF with hepatic congestion and right-sided heart failure Presented with a 20 kg weight gain in the last 6 to 7-week since discharge from previous hospitalization. With hindsight I suspect he had AIN induced renal failure related to nafcillin (previously on for MSSA bacteremic) causing his fluid retention rather than primarily heart failure as this would explain his large diuresis now off nafcillin and minimal diuretics. He may actually require IV fluids in the next few days given his significant diuresis despite on 40mg IV Lasix. At this time he has reached his dry weight and Cr started to bump today. Hold diuretics today and monitor I&Os Doubtful VRE in urine is the cause of his admission since this has been present since December 24 and he is not bacteremic but agree with continuing to treat as below.. Echocardiogram here with EF 45-50%, positive wall motion abnormalities, mild AI, moderate MR, mild to moderate TR, and mild to moderate RV dysfunction -Continue to follow BMP and replace potassium and magnesium to keep above 4 and 2 respectively -Will place a referral to the CHF clinic for close monitoring after discharge -Daily weights, strict I's and O's, no need for fluid restriction at this point (2) Acute kidney injury: Plan: As above. With hindsight suspect AIN induced LASHAWN with now post AIN diuresis secondary to nafcillin. (3) Sepsis: Plan: Sepsis, POA, possible diagnosis although lack of bacteremia makes this less likely Lactate was elevated at 6 but may have been from shock liver Agree with continuing to treat VRE UTI however. Started daptomycin on 01/17-would continue for 10 days total-last dose to be on 01/26 [place] catheter discontinued (4) Acute metabolic encephalopathy: Plan: presented with such related to hypoxia, shock liver, CHF, renal failure, possible sepsis, and hypoglycemia now seems much improved, however continues to have some intermittent confusion and is emotionally labile-calls out for his frequently but is easily redirectable-even this is much improved on 01/20 Supportive care, continue treating UTI Check vitamin B1 level-still pending (5) Hypotension: Plan: Secondary to sepsis as above His reports that his blood pressure typically runs fairly low Possible severe sepsis, POA due to 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 BID Giving diuresis as above (6) Shock liver: Plan: LFTs up significantly upon admission and continue to be trending downward INR was 4 on admission and is now down to 1.4 LFTs remain elevated but trending down. CT abd/pel checked given h/o acute samson status post cholecystectomy earlier this year with lots of adhesions during surgery, need to assess for CBD dilation-negative most likely secondary to hepatic congestion from right sided heart failure but given persistent elevated bilirubin will get Liver US to assess for anatomical cause (7) VRE (vancomycin-resistant Enterococci) infection: Plan: As above, UTI Treating with daptomycin (8) Transaminitis: Plan: Secondary to shock liver +/- nafcillin Improving (9) Elevated troponin: Plan: demand ischemia and renal failure impacting troponin levels (10) Edema, peripheral: Plan: Improving with diuresis Has chronic venous stasis changes with chronic erythema (11) Malnutrition: Plan: Chronic moderate protein malnutrition- nutrition support Albumin is improving (12) Atrial fibrillation, permanent: Plan: Atrial flutter and Afib on telemetry here, with SVT on arrival on ECG His blood pressure was limiting the addition of his metoprolol, but blood pressures are improving now Rates are mildly tachycardic -Restarted home metoprolol -INR is trending downward and elevated INR from shock liver does not necessarily anticoagulate him. Nonetheless, INR is down to 1.2 and Eliquis was restarted -Eliquis restarted, however he should be on the lower dose of 2.5 mg p.o. twice daily given age greater than 80 and borderline Cr, if Cr stable <1.5 will increase dose again. Continue to monitor on telemetry (13) MSSA bacteremia: Plan: A history of such from previous admission Completed Nafcillin 2GM IV q4 hours course on 01/17, blood culture x4 no growth to date. (14) Chronic bilateral pleural effusions: Plan: stable appearing and slightly improved on last CXR Continue diuresis (15) Hyperkalemia: Plan: Present on admission secondary to acute kidney injury, now resolved (16) Depression: Plan: With labile mood related to critical illness and multiple recent hospitalizations, frustration with being ill and in the hospital Continue home fluoxetine 10 mg daily Mirtazapine at bedtime Emotional support given Plan: DVT prophylaxis- Eliquis Disposition- medically stable for discharge pending placement, needs to complete daptomycin per personal intermediate Admission and Anticipated Discharge Date Admission Date: January 15, 2021 Subjective No acute concerns or questions. No shortness of breath. Patient on room air. Discussed care with Dr Lofton Discussed care with Dr Grande Updated family over the phone Review of Systems Review of Systems: All systems reviewed & are unremarkable except as noted in HPI & below Physical Exam Constitutional: WD/WN, vitals as above Eyes: + scleral abnormality (icterus) Cardiovascular: Vessels: + JVD Extremities: + edema (1+ pitting edema to the knees bilaterally) Chest (Breasts): Chest: normal inspection of chest Skin: + jaundice and + erythema (Chronic erythema of the legs bilaterally) Neurologic: moves all extremities and awake; no focal motor deficits Psychiatric: Orientation: alert, oriented to person, oriented to place and oriented to time Affect: euthymic affect Results & Data Results & Data ([facility]) Vital Signs (Past 12 Hours) Vital Signs Temp Pulse Resp BP BP Pulse Ox 01/24/21 11:27 36.7 C 104 H 20 116/82 96 01/24/21 06:56 36.3 C L 100 H 20 96/67 L 98 01/24/21 04:38 36.4 C L 101 H 20 99/72 L 95 PG Care Time/CCT Total # of Minutes Spent Total Time Spent with Patient: Total time spent is greater than 50% in coordination of care (as documented) at patient's floor/unit and/or counseling patient: Coding Level of Care Code 82413 Subseq Hosp Care Lvl 2 Diagnoses Acute on chronic diastolic (congestive) heart failure I50.33 Acute kidney injury N17.9 Sepsis A41.9 Acute metabolic encephalopathy G93.41 Hypotension I95.9 Shock liver K72.00 VRE (vancomycin-resistant Enterococci) infection A49.1; Z16.21 Transaminitis R74.01 Elevated troponin R77.8 Edema, peripheral R60.9 Malnutrition E46 Atrial fibrillation, permanent I48.21 MSSA bacteremia R78.81; B95.61 Chronic bilateral pleural effusions J90 Hyperkalemia E87.5 Depression F32.9
[2021-01-24] MEDS: DAPTOmycin 475 MG in SYRINGE 0 ML IV SCH (16:14)
[2021-01-24] MEDS: MELATONIN 3 MG TAB PO SCH (20:19)
[2021-01-24] MEDS: MIRTAZAPINE TAB 15 MG TAB PO SCH (20:19)
[2021-01-25 08:40] LABS: Basophils # (auto) 0.03 K/uL (0-0.2); Basophils % (auto) 0.5 %; Eosinophils # (auto) 0.14 K/uL (0-0.5); Eosinophils % (auto) 2.5 %; Hematocrit (blood only) 30.8 % (42-52); Hemoglobin 10.4 g/dL (14.0-18.0); Immature Granulocytes # (auto) 0.06 K/uL (0.00-0.02); Immature Granulocytes % (auto) 1.1 %; Lymphocytes # (auto) 1.56 K/uL (1.2-3.4); Lymphocytes % (auto) 27.9 %; Mean Corpuscular Hemoglobin 35.5 pg (25-34); Mean Corpuscular Hgb Conc 33.8 g/dL (32-36); Mean Corpuscular Volume 105.1 fL (80-100); Monocytes # (auto) 0.68 K/uL (0.11-0.59); Monocytes % (auto) 12.1 %; Neutrophils # (auto) 3.13 K/uL (1.4-6.5); Neutrophils % (auto) 55.9 %; Platelet Count 166 K/uL (130-400); RDW Coefficient of Variation 20.4 % (11.5-14.5); RDW Standard Deviation 72.9 fL (36.4-46.3); Red Blood Count 2.93 M/uL (4.7-6.1)
[2021-01-25] MEDS: METOPROLOL SUCC 25MG EXT REL TAB PO SCH ×2 (08:43→21:48)
[2021-01-25] MEDS: FERROUS SULFATE 325 MG TAB PO SCH ×2 (08:44→21:53)
[2021-01-25] MEDS: BUMETANIDE 1 MG TAB PO SCH (08:44)
[2021-01-25] MEDS: PANTOprazole 40 MG TAB PO SCH (08:44)
[2021-01-25] MEDS: APIXABAN 2.5 MG TAB PO SCH ×2 (08:45→21:53)
[2021-01-25] MEDS: POTASSIUM CHLORIDE CRTAB 20 MEQ TABCR PO SCH (08:51)
[2021-01-25] MEDS: DOCUSATE SODIUM 100 MG CAP PO SCH ×2 (08:51→21:53)
[2021-01-25 09:15] LABS: Albumin Level 2.1 gm/dl (3.4-5.0); BUN Creatinine Ratio 36.2 (10-20); Calcium 9.6 mg/dl (8.5-10.1); Creatinine Clr Calc Pharmacy 42.1 ml/min; Est GFR (African American) 54.9 ml/min; Est GFR (Non-African American) 47.4 ml/min; Potassium 3.6 mmol/L (3.5-5.1)
[2021-01-25 09:16] LABS: Albumin Globulin Ratio 0.4 (0.9-2); Bilirubin,Total 4.3 mg/dl (0.2-1); Globulin 5.1 gm/dl (2.5-4.0); Total Protein 7.2 gm/dl (6.4-8.2)
[2021-01-25 09:19] LABS: Anisocytosis Present; Basophilic Stippling 1+; Poikilocytosis Present; Polychromasia 1+
[2021-01-25] MEDS: FLUoxetine HCL 10 MG CAP PO SCH (09:57)
--- NOTE | 2021-01-25 10:10 | Palliative Care Consultation ---
Date of Consultation January 25, 2021 Assessment & Plan (1) Metabolic encephalopathy: Variable confusion. He is generally clear today but does not seem to have full insight into his illness. (2) Palliative care encounter: I talked with Mr. Rhodes about his illness and how he is coping with multiple hospitalizations in the last few months. He tells me that he didn't realize that he was as sick as he is. However, he still does not seem to unde rstand the extent of his poor prognosis. I asked him if he had ever thought about the care that he would want if he were nearing the end of his life. He told me that he's never really thought about that a lot but has talked with his family a bit. Interestingly, there is a partially completed POLST form scanned into the chart from 01/16/21. It appears to be filled out by Mr. Rhodes himself, with no physician signature. It indicates full code, full treatment but limited interventions and I'm not sure that he had a meaningful discussion about this or clinician guidance. He does not recall completing the form. I spoke with Mrs. Rhodes. We discussed that with his multiple hospitalizations he has had progressive functional decline and that overall his prognosis is not good. She agrees and tells me that her most important priority is that he not be in the hospital at the time of his . She would prefer the focus of his care be comfort and that he be able to remain at [place] until his . We discussed hospice as the best option for support toward this goal. We reviewed hospice benefits and philosophy. She would like to arrange hospice for him at home when ready for discharge. She asked that I speak with her sons about this as well. I spoke with both sons, Jonathan and Judson, by conference call. We reviewed my conversations with both parents. They are in agreement with a comfort directed focus hospice care. I answered their questions about hospice coverage. They are unsure which hospice they would want to use but did have [facility] for his home care at one point and were very pleased. They were not aware that he had completed a POLST form and tell me that the form completed is not consistent with the advance directive that Mr. Rhodes has completed. In his advance directive he has stated that he would not want resuscitation or aggressive treatment. They are co POAs for his healthcare. We reviewed the POLST form together and I have completed a form based on that discussion for DNR/DNI, comfort measures, trial antibiotics, no artificial hydration or nutrition. They will review when he is discharged and sign. Case management was notified about family decision and POLST. (3) Acute on chronic diastolic (congestive) heart failure: (4) Transaminitis: (5) VRE (vancomycin-resistant Enterococci) infection: History of Present Illness Reason for Consultation: goals of care Requesting Physician: Dr. Romo Attending Physician: Titus Romo MD History of Present Illness 89 yo gentleman with history of HFpEF, aflutter with RVR and CKD who has had multiple hospitalizations over the last six months, including admissions for MSSA bacteremia and HF exacerbation. He was admitted most recently from his home at [facility] for mental status changes and edema. He has had significant diuresis and though he had elevated LFTs with hepatic congestion earlier in his admission, this is improving slightly. His renal function has also improved. He is currently sitting at bedside in the chair. He ate all his breakfast, including a nutritional shake. He denies dyspnea or pain. Allergies Allergy/AdvReac Type Severity Reaction Status Date / Time No Known Allergies Allergy Unknown Verified 01/03/21 14:21 Home Medications Medication Instructions Recorded Confirmed Type allopurinol 300 mg tablet 300 mg PO QAM tab 01/21/19 01/15/21 History apixaban 5 mg tablet (Eliquis) 5 mg PO BID #60 tab 07/26/20 01/15/21 Rx fluoxetine 10 mg capsule (Prozac) 10 mg PO QAM 10/15/20 01/15/21 History docusate sodium 100 mg capsule 100 mg PO BID 11/15/20 01/15/21 History (Colace) mirtazapine 15 mg tablet (Remeron) 15 mg PO QAM 11/15/20 01/15/21 History potassium chloride 20 mEq 20 meq PO TID 12/24/20 01/15/21 History tablet,extended release(part/cryst) (Klor-Con M) ferrous sulfate 325 mg (65 mg 325 mg PO BID 01/15/21 01/15/21 History iron) tablet (Iron (ferrous sulfate)) furosemide 40 mg tablet (Lasix) 40 mg PO QAM 01/15/21 01/15/21 History melatonin 3 mg tablet (Melatin) 3 mg PO HS 01/15/21 01/15/21 History metoprolol succinate 25 mg 12.5 mg PO BID 01/15/21 01/15/21 History tablet,extended release 24 hr (Toprol XL) nitrofurantoin macrocrystal 50 mg 50 mg PO BID 01/15/21 01/15/21 History capsule (Macrodantin) pantoprazole 40 mg tablet,delayed 40 mg PO QAM 01/15/21 01/15/21 History release (Protonix) Patient History Medical History Abdominal ascites Abnormal cystoscopy Acalculous cholecystitis Actinic keratosis Acute CHF (congestive heart failure) Acute respiratory failure with hypoxia Atrial fibrillation with rapid ventricular response (03/2020) Bacteremia Bilateral edema of lower extremity Bilateral nephrolithiasis (2005) Bilateral pleural effusion Bladder cancer (2016) Depression Elevated troponin Per cardiology note 08/05/20: (2) Elevated troponin: -mild elevation likely a supply demand mismatch and not coronary ischemia. 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 -did have elevated heart rate and low blood pressure while in the emergency room. GI bleed Gout Hearing loss Hematuria (2018) History of basal cell carcinoma (2016) Hypercholesteremia Leg edema Male erectile disorder of organic origin Valvular heart disease Vitamin D deficiency Surgical History H/O pyloroplasty H/O shoulder surgery Hx laparoscopic cholecystectomy (08/06/20) Laparoscopic Cholecystectomy with Cholangiogram, Lysis of Adhesions Dr. Givens 08/06/2020 S/P bladder tumor excision with fulguration (2016) S/P knee surgery Status post ORIF of fracture of ankle Family History Grandfather Cancer Social History Smoking Status: Unknown if ever smoked Age Quit Using Tobacco: 32; Second Hand Exposure: No; Preferred Language: Ukrainian Communication Ability: Unable Stonemason Required: No Beliefs That Will Affect Care: None marital status: Current Living Situation: Spouse Current Living Situation Comment: lives w/ current occupational status: retired How many Children do You have: 1 Feels Safe at Home: Yes Assistive Devices: Walker Review of Systems Review of Systems: [place] Symptom Assessment Scale Pain 0/3 Dyspnea 0/3 Anxiety 0/3 Fatigue 1/3 Nausea 0/3 Drowsiness 0/3 Palliative Performance Score 50% Physical Exam Constitutional: no acute distress Respiratory: normal respiratory effort; no labored breathing room air Cardiovascular: Extremities: no edema Gastrointestinal (Abdomen): Inspection/Auscultation: abdomen not distended Neurologic: awake and + confused (mild confusion, some difficulty with recall ) Psychiatric: Orientation: oriented to person and oriented to place Affect: euthymic affect Genitourinary: continent tea colored urine Results & Data ([facility]) Vital Signs (Past 12 Hours) Vital Signs Temp Pulse Resp BP Pulse Ox 01/25/21 08:06 97.3 F L 97 H 18 100/70 92 01/25/21 03:00 97.7 F 102 H 20 94/62 L 92 01/24/21 23:00 97.7 F 103 H 20 95/62 L 96 PG Care Time/CCT Total # of Minutes Spent Total Time Spent: 120 Total Time Spent with Patient: Total time spent is greater than 50% in coordination of care (as documented) at patient's floor/unit and/or counseling patient: goals of care, POLST, hospice, prognosis, patient and family education and support. Coding Level of Care Code 04348 Initial Inpt Care Lvl 3 Diagnoses Metabolic encephalopathy G93.41 Palliative care encounter Z51.5 Acute on chronic diastolic (congestive) heart failure I50.33 Transaminitis R74.01 VRE (vancomycin-resistant Enterococci) infection A49.1; Z16.21
[2021-01-25] MEDS: DAPTOmycin 600 MG in SYRINGE 0 ML IV SCH (15:24)
--- NOTE | 2021-01-25 16:35 | Hospitalist Progress Note ---
Date of Service January 25, 2021 Assessment & Plan (1) Acute on chronic diastolic (congestive) heart failure: Plan: Presented with decompensated HFpEF with hepatic congestion and right-sided heart failure Presented with a 20 kg weight gain in the last 6 to 7-week since discharge from previous hospitalization. Suspect gain in weight secondary to sodium load with nafcillin +/- kidney injury from nafcillin itself Start Bumex 1mg PO daily (I suspect this is the dose to discharge him with). I&Os equal off diuretics yesterday and better to run slightly dry Doubtful VRE in urine is the cause of his admission since this has been present since December 24 and he is not bacteremic but agree with continuing to treat as below.. Echocardiogram here with EF 45-50%, positive wall motion abnormalities, mild AI, moderate MR, mild to moderate TR, and mild to moderate RV dysfunction -Continue to follow BMP and replace potassium and magnesium to keep above 4 and 2 respectively -Will place a referral to the CHF clinic for close monitoring after discharge -Daily weights, strict I's and O's, no need for fluid restriction at this point (2) Acute kidney injury: Plan: As above. With hindsight suspect AIN induced LASHAWN with now post AIN diuresis secondary to nafcillin. (3) Sepsis: Plan: Sepsis, POA, possible diagnosis although lack of bacteremia makes this less likely Lactate was elevated at 6 but may have been from shock liver Agree with continuing to treat VRE UTI however. Started daptomycin on 01/17-would continue for 10 days total-last dose to be on 01/26 Troy catheter discontinued (4) Acute metabolic encephalopathy: Plan: presented with such related to hypoxia, shock liver, CHF, renal failure, possible sepsis, and hypoglycemia now seems much improved, however continues to have some intermittent confusion and is emotionally labile-calls out for his frequently but is easily redirectable-even this is much improved on 01/20 Supportive care, continue treating UTI Check vitamin B1 level-still pending (5) Hypotension: Plan: Secondary to sepsis as above His reports that his blood pressure typically runs fairly low Possible severe sepsis, POA due to 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 BID Giving diuresis as above (6) Shock liver: Plan: LFTs up significantly upon admission and continue to be trending downward INR was 4 on admission and is now down to 1.2 LFTs remain elevated but trending down. CT abd/pel checked given h/o acute samson status post cholecystectomy earlier this year with lots of adhesions during surgery, need to assess for CBD dilation-negative most likely secondary to hepatic congestion from right sided heart failure but given persistent elevated bilirubin will get Liver US to assess for anatomical cause (7) VRE (vancomycin-resistant Enterococci) infection: Plan: As above, UTI Treating with daptomycin (8) Transaminitis: Plan: Secondary to shock liver +/- nafcillin Improving (9) Elevated troponin: Plan: demand ischemia and renal failure impacting troponin levels (10) Edema, peripheral: Plan: Improving with diuresis Has chronic venous stasis changes with chronic erythema (11) Malnutrition: Plan: Chronic moderate protein malnutrition- nutrition support Albumin is improving (12) Atrial fibrillation, permanent: Plan: Atrial flutter and Afib on telemetry here, with SVT on arrival on ECG His blood pressure was limiting the addition of his metoprolol, but blood pressures are improving now Rates are mildly tachycardic -Restarted home metoprolol -INR is trending downward and elevated INR from shock liver does not necessarily anticoagulate him. Nonetheless, INR is down to 1.2 and Eliquis was restarted -Eliquis restarted, however he should be on the lower dose of 2.5 mg p.o. twice daily given age greater than 80 and borderline Cr, if Cr stable <1.5 will increase dose again. Continue to monitor on telemetry (13) MSSA bacteremia: Plan: A history of such from previous admission Completed Nafcillin 2GM IV q4 hours course on 01/17, blood culture x4 no growth to date. (14) Chronic bilateral pleural effusions: Plan: stable appearing and slightly improved on last CXR Continue diuresis (15) Hyperkalemia: Plan: Present on admission secondary to acute kidney injury, now resolved (16) Depression: Plan: With labile mood related to critical illness and multiple recent hospitalizations, frustration with being ill and in the hospital Continue home fluoxetine 10 mg daily Mirtazapine at bedtime Emotional support given Plan: DVT prophylaxis- Eliquis Disposition - need to finish daptomycin in hospital as unable to provide at personal alf. Planning on discharge on Thursday Admission and Anticipated Discharge Date Admission Date: January 15, 2021 Subjective Doing well today at baseline. No significant shortness of breath or chest pain. A. flutter @ [address] Lofton. Review of Systems Review of Systems: All systems reviewed & are unremarkable except as noted in HPI & below Physical Exam Constitutional: WD/WN, vitals as above Eyes: + scleral abnormality (icterus) Neck: trachea midline, no thyromegaly Respiratory: normal respiratory effort, lungs clear to auscultation Cardiovascular: Rate/Rhythm: + tachycardic and + irregularly irregular Heart Sounds: no murmur Vessels: + JVD Extremities: + edema (1+ pitting edema to the knees bilaterally) Chest (Breasts): Chest: normal inspection of chest Gastrointestinal (Abdomen): normal bowel sounds, soft, nontender, no hepatosplenomegaly Musculoskeletal: Extremities: extremities normal to inspection; no cyanosis and no clubbing Skin: + jaundice and + erythema (Chronic erythema of the legs bilaterally) Neurologic: moves all extremities and awake; no focal motor deficits Psychiatric: Orientation: alert, oriented to person, oriented to place and oriented to time Affect: euthymic affect Results & Data Results & Data ([facility]) Vital Signs (Past 12 Hours) Vital Signs Temp Pulse Resp BP Pulse Ox 01/25/21 11:34 36.4 C L 92 H 18 102/68 97 01/25/21 08:06 36.3 C L 97 H 18 100/70 92 PG Care Time/CCT Total # of Minutes Spent Total Time Spent with Patient: Total time spent is greater than 50% in coordination of care (as documented) at patient's floor/unit and/or counseling patient: Coding Level of Care Code 03697 Subseq Hosp Care Lvl 1 Diagnoses Acute on chronic diastolic (congestive) heart failure I50.33 Acute kidney injury N17.9 Sepsis A41.9 Acute metabolic encephalopathy G93.41 Hypotension I95.9 Shock liver K72.00 VRE (vancomycin-resistant Enterococci) infection A49.1; Z16.21 Transaminitis R74.01 Elevated troponin R77.8 Edema, peripheral R60.9 Malnutrition E46 Atrial fibrillation, permanent I48.21 MSSA bacteremia R78.81; B95.61 Chronic bilateral pleural effusions J90 Hyperkalemia E87.5 Depression F32.9
[2021-01-25] MEDS: MIRTAZAPINE TAB 15 MG TAB PO SCH (21:53)
[2021-01-25] MEDS: MELATONIN 3 MG TAB PO SCH (21:53)
[2021-01-26] MEDS: ACETAMINOPHEN 325 MG TAB PO PRN (02:02)
[2021-01-26 07:34] LABS: Albumin Level 1.8 gm/dl (3.4-5.0); BUN Creatinine Ratio 34.8 (10-20); Calcium 8.8 mg/dl (8.5-10.1); Creatinine Clr Calc Pharmacy 38.1 ml/min; Est GFR (African American) 48.7 ml/min; Potassium 3.2 mmol/L (3.5-5.1)
[2021-01-26] MEDS: APIXABAN 2.5 MG TAB PO SCH ×2 (07:44→20:30)
[2021-01-26] MEDS: BUMETANIDE 1 MG TAB PO SCH (07:44)
[2021-01-26] MEDS: METOPROLOL SUCC 25MG EXT REL TAB PO SCH ×2 (07:44→20:31)
[2021-01-26] MEDS: FLUoxetine HCL 10 MG CAP PO SCH (07:44)
[2021-01-26] MEDS: DOCUSATE SODIUM 100 MG CAP PO SCH ×2 (07:44→20:31)
[2021-01-26] MEDS: FERROUS SULFATE 325 MG TAB PO SCH ×2 (07:44→20:32)
[2021-01-26] MEDS: POTASSIUM CHLORIDE CRTAB 20 MEQ TABCR PO SCH ×2 (07:45→20:31)
[2021-01-26] MEDS: PANTOprazole 40 MG TAB PO SCH (07:45)
[2021-01-26 07:46] LABS: Albumin Globulin Ratio 0.4 (0.9-2); Bilirubin,Total 3.4 mg/dl (0.2-1); Globulin 4.3 gm/dl (2.5-4.0); Total Protein 6.1 gm/dl (6.4-8.2)
--- NOTE | 2021-01-26 14:00 | Hospitalist Progress Note ---
Date of Service January 26, 2021 Assessment & Plan (1) Acute on chronic diastolic (congestive) heart failure: Plan: Presented with decompensated HFpEF with hepatic congestion and right-sided heart failure Presented with a 20 kg weight gain in the last 6 to 7-week since discharge from previous hospitalization. Lost additional 10kg from prior discharge. Suspect gain in weight secondary to sodium load with nafcillin +/- kidney injury from nafcillin itself Continue Bumex 1mg PO daily (I suspect this is the dose to discharge him with). I&Os equal off diuretics but weight was increasing and JVD worse therefore will need some diuretics on discharge. Echocardiogram here with EF 45-50%, positive wall motion abnormalities, mild AI, moderate MR, mild to moderate TR, and mild to moderate RV dysfunction -Continue to follow BMP and replace potassium and magnesium to keep above 4 and 2 respectively -Will place a referral to the CHF clinic for close monitoring after discharge -Daily weights, strict I's and O's, no need for fluid restriction (2) Acute kidney injury: Plan: As above. (3) Sepsis: Plan: Sepsis, POA, possible diagnosis although lack of bacteremia makes this less likely Lactate was elevated at 6 but may have been from shock liver Agree with continuing to treat VRE UTI however. Started daptomycin on 01/17-would continue for 10 days total-last dose to be on 01/26 Troy catheter discontinued (4) Acute metabolic encephalopathy: Plan: presented with such related to hypoxia, shock liver, CHF, renal failure, possible sepsis, and hypoglycemia now much improved, however continues to have some emotional lability Supportive care, continue treating UTI Vitamin B1 level-WNL (5) Hypotension: Plan: Secondary to sepsis as above His reports that his blood pressure typically runs fairly low Possible severe sepsis, POA due to 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, stage 2-3 pressure ulcer of sacrum pt with good response with pressors now weaned off Tolerating metoprolol succinate 12.5 mg p.o. BID - trial increase to 25mg BID to help with ongoing tachycardia Giving diuresis as above (6) Shock liver: Plan: LFTs up significantly upon admission and continue to be trending downward INR was 4 on admission and is now down to 1.2 LFTs remain elevated but trending down. (7) VRE (vancomycin-resistant Enterococci) infection: Plan: As above, UTI Treating with daptomycin (8) Transaminitis: Plan: Secondary to shock liver +/- nafcillin Improving (9) Elevated troponin: Plan: demand ischemia and renal failure impacting troponin levels (10) Edema, peripheral: Plan: Improving with diuresis Has chronic venous stasis changes with chronic erythema in addition to heart failure (11) Malnutrition: Plan: Chronic moderate protein malnutrition- nutrition support (12) Atrial fibrillation, permanent: Plan: Atrial flutter and Afib on telemetry here, with SVT on arrival on ECG Rates are mildly tachycardic -Restarted home metoprolol, up titrate as tolerated -Eliquis restarted, however he should be on the lower dose of 2.5 mg p.o. twice daily given age greater than 80 and borderline Cr, if Cr stable <1.5 will increase dose again. Continue to monitor on telemetry (13) MSSA bacteremia: Plan: A history of such from previous admission Completed Nafcillin 2GM IV q4 hours course on 01/17, blood culture x4 no growth to date. (14) Chronic bilateral pleural effusions: Plan: stable appearing and slightly improved on last CXR Continue diuresis (15) Hyperkalemia: Plan: Present on admission secondary to acute kidney injury, now resolved (16) Depression: Plan: With labile mood related to critical illness and multiple recent hospitalizations, frustration with being ill and in the hospital Continue home fluoxetine 10 mg daily Mirtazapine at bedtime Emotional support given Plan: DVT prophylaxis- Eliquis Disposition- planning on discharge on Thursday to [place] on hospice Admission and Anticipated Discharge Date Admission Date: January 15, 2021 Subjective No acute events overnight. Telemetry reviewed. No questions or concerns from patient. Patient to return to [place] on hospice care on Sunday 01/28. Review of Systems Review of Systems: All systems reviewed & are unremarkable except as noted in HPI & below Physical Exam Constitutional: WD/WN, vitals as above Eyes: + scleral abnormality (icterus) Cardiovascular: Vessels: + JVD Extremities: + edema (1+ pitting edema to the knees bilaterally) Musculoskeletal: Extremities: extremities normal to inspection; no cyanosis and no clubbing Skin: + jaundice and + erythema (Chronic erythema of the legs bilaterally) Neurologic: moves all extremities and awake; no focal motor deficits and not confused Psychiatric: Orientation: alert, oriented to person, oriented to place and oriented to time Affect: euthymic affect Results & Data Results & Data ([facility]) Vital Signs (Past 12 Hours) Vital Signs Temp Pulse Pulse Resp BP BP Pulse Ox 01/26/21 11:07 36.7 C 103 H 20 115/78 100 01/26/21 09:16 98 H 01/26/21 07:40 36.3 C L 99 H 20 101/71 96 01/26/21 04:00 36.5 C 100 H 20 117/74 97 PG Care Time/CCT Total # of Minutes Spent Total Time Spent with Patient: Total time spent is greater than 50% in coordination of care (as documented) at patient's floor/unit and/or counseling patient: Coding Level of Care Code 83620 Subseq Hosp Care Lvl 1 Diagnoses Acute on chronic diastolic (congestive) heart failure I50.33 Acute kidney injury N17.9 Sepsis A41.9 Acute metabolic encephalopathy G93.41 Hypotension I95.9 Shock liver K72.00 VRE (vancomycin-resistant Enterococci) infection A49.1; Z16.21 Transaminitis R74.01 Elevated troponin R77.8 Edema, peripheral R60.9 Malnutrition E46 Atrial fibrillation, permanent I48.21 MSSA bacteremia R78.81; B95.61 Chronic bilateral pleural effusions J90 Hyperkalemia E87.5 Depression F32.9
[2021-01-26] MEDS: DAPTOmycin 600 MG in SYRINGE 0 ML IV SCH (15:46)
[2021-01-26] MEDS: MIRTAZAPINE TAB 15 MG TAB PO SCH (20:32)
[2021-01-26] MEDS: MELATONIN 3 MG TAB PO SCH (20:32)
[2021-01-27] MEDS: ACETAMINOPHEN 325 MG TAB PO PRN (05:13)
[2021-01-27] MEDS: METOPROLOL SUCC 25MG EXT REL TAB PO SCH (07:17)
[2021-01-27] MEDS: FERROUS SULFATE 325 MG TAB PO SCH ×2 (07:17→21:50)
[2021-01-27] MEDS: APIXABAN 2.5 MG TAB PO SCH ×2 (07:18→21:50)
[2021-01-27] MEDS: PANTOprazole 40 MG TAB PO SCH (07:18)
[2021-01-27] MEDS: DOCUSATE SODIUM 100 MG CAP PO SCH ×2 (07:18→21:50)
[2021-01-27] MEDS: BUMETANIDE 1 MG TAB PO SCH (07:21)
[2021-01-27] MEDS: POTASSIUM CHLORIDE CRTAB 20 MEQ TABCR PO SCH (07:22)
[2021-01-27] MEDS: FLUoxetine HCL 10 MG CAP PO SCH (07:23)
--- NOTE | 2021-01-27 10:42 | Hospitalist Progress Note ---
Date of Service January 27, 2021 Assessment & Plan (1) Acute on chronic diastolic (congestive) heart failure: Plan: Presented with decompensated HFpEF with hepatic congestion and right-sided heart failure Presented with a 20 kg weight gain in the last 6 to 7-week since discharge from previous hospitalization. Lost additional 10kg this admission from prior discharge. Dry weight appears to be approximately 80kg. Suspect gain in weight secondary to sodium load with nafcillin +/- kidney injury from nafcillin itself Continue Bumex 1mg PO daily (I suspect this is the dose to discharge him with). I&Os equal off diuretics but weight was increasing and JVD worse therefore will need some diuretics on discharge. Echocardiogram here with EF 45-50%, positive wall motion abnormalities, mild AI, moderate MR, mild to moderate TR, and mild to moderate RV dysfunction -Continue to follow BMP and replace potassium and magnesium to keep above 4 and 2 respectively. Deceasing potassium with bumex despite KCl 20meq BID. Additional 40 meq (total 80meq) today and will increase to total 60 meq tomorrow. -Will place a referral to the CHF clinic for close monitoring after discharge -Daily weights, strict I's and O's, no need for fluid restriction (2) Acute kidney injury: Plan: As above. (3) Sepsis: Plan: Sepsis, POA, possible diagnosis although lack of bacteremia makes this less likely Lactate was elevated at 6 but may have been from shock liver Agree with continuing to treat VRE UTI however. Started daptomycin on 01/17-would continue for 10 days total-now completed Troy catheter discontinued (4) Acute metabolic encephalopathy: Plan: presented with such related to hypoxia, shock liver, CHF, renal failure, possible sepsis, and hypoglycemia now much improved, however continues to have some emotional liability and intermitted delirium Supportive care, UTI now treated Vitamin B1 level-WNL (5) Hypotension: Plan: Resolved. Suspect cardiogenic shock on admission but cannot r/o sepsis Possible severe sepsis, POA due to 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, stage 2-3 pressure ulcer of sacrum pt with good response with pressors now weaned off Tolerating metoprolol succinate 12.5 mg p.o. BID - multiple trials to increase to 25mg PO BID have led to recurrence in hypotension Giving diuresis as above (6) Shock liver: Plan: LFTs up significantly upon admission and continue to be trending downward INR was 4 on admission and is now down to 1.2 LFTs remain elevated but trending down. Imaging without anatomical abnormality (7) VRE (vancomycin-resistant Enterococci) infection: Plan: As above, UTI Completed treatment with daptomycin (8) Transaminitis: Plan: Secondary to shock liver +/- nafcillin Improving (9) Elevated troponin: Plan: demand ischemia and renal failure impacting troponin levels (10) Edema, peripheral: Plan: Improving with diuresis Has chronic venous stasis changes with chronic erythema in addition to heart failure (11) Malnutrition: Plan: Chronic moderate protein malnutrition- nutrition support (12) Atrial fibrillation, permanent: Plan: Atrial flutter and Afib on telemetry here, with SVT on arrival on ECG Rates are mildly tachycardic -Restarted home metoprolol, multiple trials to uptitrate to 25mg BID led to hypotension therefore plan to discharge on 12.5mg PO BID -Eliquis restarted, however he should be on the lower dose of 2.5 mg p.o. twice daily given age greater than 80 and borderline Cr, if Cr stable <1.5 will increase dose again. Continue to monitor on telemetry (13) MSSA bacteremia: Plan: A history of such from previous admission Completed Nafcillin 2GM IV q4 hours course on 01/17, blood culture x4 no growth to date. (14) Chronic bilateral pleural effusions: Plan: stable appearing and slightly improved on last CXR Continue diuresis (15) Hyperkalemia: Plan: Present on admission secondary to acute kidney injury, now resolved (16) Depression: Plan: With labile mood related to critical illness and multiple recent hospitalizations, frustration with being ill and in the hospital Continue home fluoxetine 10 mg daily Mirtazapine at bedtime Emotional support given (17) Macrocytic anemia: Plan: B12 level normal Plan: DVT prophylaxis- Eliquis Disposition- planning on discharge on Thursday to [place] on hospice Admission and Anticipated Discharge Date Admission Date: January 15, 2021 Subjective No acute events overnight. No questions or concerns from patient. Patient to return to [place] on hospice care on Sunday 01/28. Review of Systems Review of Systems: All systems reviewed & are unremarkable except as noted in HPI & below Physical Exam Constitutional: well developed; + not well nourished and no acute distress Eyes: + scleral abnormality (icterus) Neck: trachea midline, no thyromegaly Respiratory: normal respiratory effort, lungs clear to auscultation Cardiovascular: Rate/Rhythm: + tachycardic and + irregularly irregular Heart Sounds: no murmur Vessels: no JVD Extremities: + edema (1+ pitting edema to the knees bilaterally) Chest (Breasts): Chest: normal inspection of chest Gastrointestinal (Abdomen): normal bowel sounds, soft, nontender, no hepatosplenomegaly Musculoskeletal: Extremities: extremities normal to inspection; no cyanosis and no clubbing Skin: + jaundice and + erythema (Chronic erythema of the legs bilaterally) Neurologic: moves all extremities and awake; no focal motor deficits and not confused Psychiatric: Orientation: alert, oriented to person, oriented to place and oriented to time Affect: euthymic affect Results & Data Results & Data ([facility]) Vital Signs (Past 12 Hours) Vital Signs Temp Pulse Pulse Resp BP Pulse Ox 01/27/21 08:02 36.2 C L 101 H 18 102/71 98 01/27/21 07:42 101 H 01/27/21 03:00 36.3 C L 106 H 20 98/42 L 97 01/26/21 23:00 36.5 C 103 H 18 104/72 96 PG Care Time/CCT Total # of Minutes Spent Total Time Spent with Patient: Total time spent is greater than 50% in coordination of care (as documented) at patient's floor/unit and/or counseling patient: Coding Level of Care Code 06383 Subseq Hosp Care Lvl 1 Diagnoses Acute on chronic diastolic (congestive) heart failure I50.33 Acute kidney injury N17.9 Sepsis A41.9 Acute metabolic encephalopathy G93.41 Hypotension I95.9 Shock liver K72.00 VRE (vancomycin-resistant Enterococci) infection A49.1; Z16.21 Transaminitis R74.01 Elevated troponin R77.8 Edema, peripheral R60.9 Malnutrition E46 Atrial fibrillation, permanent I48.21 MSSA bacteremia R78.81; B95.61 Chronic bilateral pleural effusions J90 Hyperkalemia E87.5 Depression F32.9 Macrocytic anemia D53.9
[2021-01-27 13:11] LABS: Albumin Level 1.9 gm/dl (3.4-5.0); BUN Creatinine Ratio 36.9 (10-20); Calcium 8.7 mg/dl (8.5-10.1); Creatinine Clr Calc Pharmacy 38.1 ml/min; Est GFR (African American) 48.7 ml/min
[2021-01-27 13:14] LABS: Albumin Globulin Ratio 0.4 (0.9-2); Bilirubin,Total 3.3 mg/dl (0.2-1); Globulin 4.8 gm/dl (2.5-4.0); Total Protein 6.7 gm/dl (6.4-8.2)
[2021-01-27] MEDS ORDERED: POTASSIUM CHLORIDE CRTAB 20 MEQ TABCR PO STA (21:46)
[2021-01-27] MEDS: MIRTAZAPINE TAB 15 MG TAB PO SCH (21:50)
[2021-01-27] MEDS: MELATONIN 3 MG TAB PO SCH (21:50)
[2021-01-28] MEDS: METOPROLOL SUCC 25MG EXT REL TAB PO SCH (00:37)
[2021-01-28] MEDS: POTASSIUM CHLORIDE CRTAB 20 MEQ TABCR PO SCH (00:37)
[2021-01-28] MEDS ORDERED: METOPROLOL SUCC 25MG EXT REL TAB PO SCH (09:00)
[2021-01-28] MEDS ORDERED: FERROUS SULFATE 325 MG TAB PO SCH (09:00)
[2021-01-28] MEDS ORDERED: POTASSIUM CHLORIDE CRTAB 20 MEQ TABCR PO SCH (09:00)
[2021-01-28] MEDS ORDERED: allopurinoL 100 MG TAB PO SCH (09:00)
[2021-01-28 09:27] LABS: Albumin Globulin Ratio 0.4 (0.9-2); Albumin Level 1.9 gm/dl (3.4-5.0); BUN Creatinine Ratio 34.8 (10-20); Bilirubin,Total 3.3 mg/dl (0.2-1); Calcium 8.6 mg/dl (8.5-10.1); Creatinine Clr Calc Pharmacy 37.1 ml/min; Est GFR (African American) 47.1 ml/min; Est GFR (Non-African American) 40.7 ml/min; Globulin 4.6 gm/dl (2.5-4.0); Potassium 3.7 mmol/L (3.5-5.1); Total Protein 6.5 gm/dl (6.4-8.2)
[2021-01-28] MEDS: DOCUSATE SODIUM 100 MG CAP PO SCH (10:25)
[2021-01-28] MEDS: PANTOprazole 40 MG TAB PO SCH (10:27)
[2021-01-28] MEDS: BUMETANIDE 1 MG TAB PO SCH (10:27)
[2021-01-28] MEDS: FLUoxetine HCL 10 MG CAP PO SCH (10:27)
[2021-01-28] MEDS: APIXABAN 2.5 MG TAB PO SCH (10:28)
--- NOTE | 2021-01-28 11:30 | Discharge Summary ---
Date of Service January 28, 2021 Admission HPI Per Admitting Provider [id number] with past medical history of: HFpEF, Afib (on eliqius), CKD III, protein calorie malnutrition, chronic hypoalbuminemia, MSSA bacteremia, decline in physical and mental capabilities. Patient comes to the EMD today from [facility] for alteration in mental status, increase in edema and hypoglycemia. In the EMD it was noted that his potassium was increased to 6.3, HCO3 19, lactate of 6.6, increase in renal indices to 2.9 and elevated LFTS as well as hypoxia. The patient's mental status is clearly worse than previous admissions and has been on a steady decline. The patient is edematous from his mid abdomen to his feet with pitting edema. Patient will be admitted to the ICU for continued diurese support, and possibly inotropic/vasopressor support. Blood and urine cultures have been sent as well as other infectious markers. Troy catheter placed for kaliuresis and diuresis monitoring. Bumex 1mg IV. Patient has had his gallbladder removed in August 2020, since then he has had frequent admissions so for worsening heart failure and was recently treated in late November for MSSA bacteremia which he was treated with Ancef x 6 weeks, in December 24- he was seen for volume overload and continued to be diuresed with his Lasix dose going up to 60mg per day. His kidney function at that time was stable but increasing. He was to be discharged on Nafcillin through 01/17 so will continue this and await other culture results. Principal Diagnosis Acute on chronic CHF Discharge Exam Constitutional: well developed; + not well nourished and no acute distress Eyes: + scleral abnormality (icterus) Neck: trachea midline, no thyromegaly Respiratory: normal respiratory effort, lungs clear to auscultation Cardiovascular: Rate/Rhythm: + tachycardic and + irregularly irregular Heart Sounds: no murmur Vessels: no JVD Extremities: + edema (1+ pitting edema to the knees bilaterally) Chest (Breasts): Chest: normal inspection of chest Gastrointestinal (Abdomen): normal bowel sounds, soft, nontender, no hepatosplenomegaly Musculoskeletal: Extremities: extremities normal to inspection; no cyanosis and no clubbing Skin: + jaundice and + erythema (Chronic erythema of the legs bilaterally) Neurologic: moves all extremities and awake; no focal motor deficits and not confused Psychiatric: Orientation: alert, oriented to person, oriented to place and oriented to time Affect: euthymic affect Discharge Data Allergies Allergy/AdvReac Type Severity Reaction Status Date / Time No Known Allergies Allergy Unknown Verified 01/03/21 14:21 Consultations 01/15/21 11:42 ED Decision to Admit Stat 01/15/21 15:26 Consult Finishing Frame Runner Routine Consult Finishing Frame Runner Routine 01/16/21 08:42 Consult Cardiology Routine 01/20/21 22:45 [facility] CHF Program Referral Routine 01/23/21 15:26 Consult Palliative Care Routine 01/23/21 15:30 Consult Gastroenterology Routine Ordered Studies 01/18/21 10:39 CT abd pelvis wo con Urgent 01/23/21 10:36 US liver Routine Hospital Course (1) Acute on chronic diastolic (congestive) heart failure: Presented with decompensated HFpEF with hepatic congestion and right-sided heart failure Presented with a 20 kg weight gain in the last 6 to 7-week since discharge from previous hospitalization. Lost additional 10kg this admission from prior discharge. Dry weight appears to be approximately 80kg. Suspect gain in weight secondary to sodium load with nafcillin +/- kidney injury from nafcillin itself Continue Bumex 1mg PO daily (I suspect this is the dose to discharge him with). I&Os equal off diuretics but weight was increasing and JVD worse therefore will need some diuretics on discharge. Echocardiogram here with EF 45-50%, positive wall motion abnormalities, mild AI, moderate MR, mild to moderate TR, and mild to moderate RV dysfunction -Continue to follow BMP and replace potassium and magnesium to keep above 4 and 2 respectively. Deceasing potassium with bumex despite KCl 20meq BID. Additional 40 meq (total 80meq) today and will increase to total 60 meq tomorrow. -placed a referral to the CHF clinic for close monitoring after discharge -Daily weights, strict I's and O's, no need for fluid restriction -Discharge on home hospice (2) Acute kidney injury: As above. (3) Sepsis: Sepsis, POA, possible diagnosis although lack of bacteremia makes this less likely Lactate was elevated at 6 but may have been from shock liver Agree with continuing to treat VRE UTI however. Started daptomycin on 01/17-would continue for 10 days total-now completed Troy catheter discontinued (4) Acute metabolic encephalopathy: presented with such related to hypoxia, shock liver, CHF, renal failure, possible sepsis, and hypoglycemia now much improved, however continues to have some emotional liability and intermitted delirium Supportive care, UTI now treated Vitamin B1 level-WNL (5) Hypotension: Resolved. Suspect cardiogenic shock on admission but cannot r/o sepsis Possible severe sepsis, POA due to 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, stage 2-3 pressure ulcer of sacrum pt with good response with pressors now weaned off Tolerating metoprolol succinate 12.5 mg p.o. BID - multiple trials to increase to 25mg PO BID have led to recurrence in hypotension Giving diuresis as above (6) Shock liver: LFTs up significantly upon admission and continue to be trending downward INR was 4 on admission and is now down to 1.2 LFTs remain elevated but trending down. Imaging without anatomical abnormality (7) VRE (vancomycin-resistant Enterococci) infection: As above, UTI Completed treatment with daptomycin (8) Transaminitis: Secondary to shock liver +/- nafcillin Improving (9) Elevated troponin: demand ischemia and renal failure impacting troponin levels (10) Edema, peripheral: Improving with diuresis Has chronic venous stasis changes with chronic erythema in addition to heart failure (11) Malnutrition: Chronic moderate protein malnutrition- nutrition support (12) Atrial fibrillation, permanent: Atrial flutter and Afib on telemetry here, with SVT on arrival on ECG Rates are mildly tachycardic -Restarted home metoprolol, multiple trials to uptitrate to 25mg BID led to hypotension therefore plan to discharge on 12.5mg PO BID -Eliquis restarted, however he should be on the lower dose of 2.5 mg p.o. twice daily given age greater than 80 and borderline Cr, if Cr stable <1.5 will increase dose again. Continue to monitor on telemetry (13) MSSA bacteremia: A history of such from previous admission Completed Nafcillin 2GM IV q4 hours course on 01/17, blood culture x4 no growth to date. (14) Chronic bilateral pleural effusions: stable appearing and slightly improved on last CXR treated with diuresis (15) Hyperkalemia: Present on admission secondary to acute kidney injury, now resolved (16) Depression: With labile mood related to critical illness and multiple recent hospitalizations, frustration with being ill and in the hospital Continue home fluoxetine 10 mg daily Mirtazapine at bedtime Emotional support given (17) Macrocytic anemia: B12 level normal DVT prophylaxis- Eliquis Disposition- planning on discharge on Thursday to [place] on hospice Total Time Total Time Spent Total Time Spent (In Minutes): 32 Discharge Plan Discharge Items Patient Disposition: Hospice - Medical Facility Reason For Visit: HYPERGLYCEMIA,HEART FAILURE,HYPERKALEMIA Discharge Diagnosis: Acute on chronic congestive heart failure Cardiogenic shock Multisystem organ failure VRE urinary tract infection Possible sepsis Activity: Resume your previous activity Non-emergency contact: Primary Care Provider Call non-emergency contact if: you have any medication questions and your symptoms worsen Follow-up/Referrals: Mita Odell PA-C [Physician Paper Bag Maker] - None [facility] [Primary Care Provider] - Diet: Heart Healthy and Low Potassium (2gm) Diet Texture: Easy to Chew Addtl Attending Provider Instructions: You were admitted to [facility] from January 17 - 2020 due to shortness of breath. You were admitted to the intensive care using in cardiogenic shock wih possible sepsis and multiorgan failure. You responded to vasopressors and diuretics losing 12.7 kg of water weight. You were also noted to have vancomycin resistant enterococcus on urine culture which was treated with intravenous daptomycin during your inpatient stay; no antibiotics required on discharge. Allopurinol was discontinued during your inpatient stay due to renal failure. Please up titrate as necessary to control uric acid levels (prior dose 300mg PO daily). Restarted on 50mg PO daily on discharge. On discussion with palliative care you wished to be discharged back to [facility] on hospice care which has been arranged through [facility]. Pending Studies at Discharge: No Stand-Alone Forms: My [facility] Skilled Items Patient informed of condition?: Yes DNR: Yes Discharge Level of Care: Other Communicable Disease: No Discharge Prognosis: Stable Lines: None Urinary Catheter: No Medications and DC Order Prescriptions: New allopurinol 100 mg Tablet 50 mg PO QAM Qty: 30 RF: 0 bumetanide 1 mg Tablet 1 mg PO QAM Qty: 30 RF: 0 Eliquis 2.5 mg Tablet 2.5 mg PO BID Qty: 60 RF: 0 Continued docusate sodium [Colace] 100 mg capsule 100 mg PO BID RF: 0 fluoxetine [Prozac] 10 mg capsule 10 mg PO QAM RF: 0 potassium chloride [Klor-Con M20] 20 mEq tablet,ER particles/crystals 20 meq PO TID RF: 0 melatonin [Melatin] 3 mg Tablet 3 mg PO HS RF: 0 pantoprazole [Protonix] 40 mg Tablet,Delayed Release (Dr/Ec) 40 mg PO QAM RF: 0 metoprolol succinate [Toprol XL] 25 mg tablet extended release 24 hr 12.5 mg PO BID RF: 0 Changed ferrous sulfate [Iron (ferrous sulfate)] 325 mg (65 mg iron) tablet 325 mg PO Q2D Qty: 0 RF: 0 mirtazapine [Remeron] 15 mg tablet 15 mg PO QPM Qty: 0 RF: 0 Discontinued allopurinol 300 mg tablet 300 mg PO QAM RF: 0 Eliquis 5 mg tablet 5 mg PO BID Qty: 60 RF: 3 nitrofurantoin macrocrystal [Macrodantin] 50 mg Capsule 50 mg PO BID RF: 0 furosemide [Lasix] 40 mg tablet 40 mg PO QAM RF: 0 Discharge Orders: Discharge Order (Routine); Ordered 01/28/21 Ordered By: Tejas Saenz Admission Data Admit Date/Time: 01/15/21 12:27 Attending Provider: Tejas Saenz Admit Provider: Tejas Saenz Primary Care Provider: Gin saldivarReno Other Providers: Chun Szymanski ; Tejas Saenz ; Melvin Lofton ; Mita Odell ; Edith Grande ; Joaquin Menendez ; [facility] Other Interventions: Discharge Summary Assessment (RN) Last Done: 01/28/21 11:35 Coding Level of Care Code D/C DAY MANAGEMENT >30 MINS Diagnoses Acute on chronic diastolic (congestive) heart failure I50.33 Acute kidney injury N17.9 Sepsis A41.9 Acute metabolic encephalopathy G93.41 Hypotension I95.9 Shock liver K72.00 VRE (vancomycin-resistant Enterococci) infection A49.1; Z16.21 Transaminitis R74.01 Elevated troponin R77.8 Edema, peripheral R60.9 Malnutrition E46 Atrial fibrillation, permanent I48.21 MSSA bacteremia R78.81; B95.61 Chronic bilateral pleural effusions J90 Hyperkalemia E87.5 Depression F32.9 Macrocytic anemia D53.9 Time Spent (min) 32
== END 2021-01-28 14:20 | disposition hospice, home (50) | DRG 291 ==
LOC: ED 09:40 → SUATTDRO 12:27 → 1E 12:27 → 2S 01-20 18:36 → 2W 01-21 18:33